=== PATIENT | male | born 1960 | race American Indian/Alaskan Native ===

== ENCOUNTER 2018-02-25 19:30 | Emergency (ER) | payer MEDICAID ==
--- NOTE | 2018-02-25 21:49 | Emergency Department Report ---
ED Head Trauma HPI - General Chief complaint: Head Injury Stated complaint: FALL Time Seen by Provider: 02/25/18 21:03 Source: EMS Mode of arrival: Stretcher Limitations: Altered Mental Status - History of Present Illness Initial comments: 57 year old male with a past medical history HIV/AIDS, hypertension, syphilitic neuropathy, autonomic hepatitis, cerebral infarction, toxoplasmosis, trach dependent and nonverbal presents to the hospital from half-way after head injury after fall out of chair. No other history of present illness available at this time and patient is unable to provide any additional history. - Related Data Allergies/Adverse reactions: Allergies Allergy/AdvReac Type Severity Reaction Status Date / Time No Known Allergies Allergy Unverified 02/25/18 20:40 ED Review of Systems ROS: Stated complaint: FALL Other details as noted in HPI Comment: All other systems reviewed and negative ED Past Medical Hx - Past Medical History Previous Medical History?: Yes Hx Hypertension: Yes Hx Liver Disease: Yes Hx HIV: Yes Additional medical history: 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,insomnia, autoimmune hepatitis, cerebral infarction, urine retention, toxoplasmosis - Surgical History Past Surgical History?: Yes Additional Surgical History: tracheostomy, gatrostomy - Social History Smoking Status: Unknown if ever smoked Substance Use Type: Alcohol, Cocaine ED Physical Exam - General Limitations: Altered Mental Status - Other Other exam information: General: at baseline mental status, cachectic Head exam: Atraumatic, normocephalic Eyes exam: Normal appearance, pupils equal reactive to light Neck exam: Normal inspection, full range of motion, no meningismus nontender. Tracheostomy Respiratory exam: Clear to auscultation bilateral, no wheezes, rales, crackles Cardiovascular: Normal rate and rhythm Abdomen: Soft, nondistended, and nontender, with normal bowel sounds, no rebound, or guarding Extremity: No pain with passive movement of extremities. No deformity Back: Normal Inspection, full range of motion, no tenderness Neurologic: Alert, nonverbal, does not follow commands. Moves all extremities Psychiatric: normal affect, normal mood Skin: No skin contusions. Mild abrasions to right knee ED Course Vital Signs 02/25/18 02/25/18 02/25/18 19:32 20:09 20:16 Temperature Pulse Rate 64 87 Respiratory 19 14 Rate Blood Pressure 122/70 122/70 O2 Sat by Pulse 99 Oximetry O2 Sat by Pulse Oximetry [ Assessment] 02/25/18 02/25/18 02/25/18 20:30 20:31 20:46 Temperature 97.8 F Pulse Rate 88 89 88 Respiratory 11 L 14 16 Rate Blood Pressure 122/70 110/68 O2 Sat by Pulse 100 97 Oximetry O2 Sat by Pulse Oximetry [ Assessment] 02/25/18 02/25/18 02/25/18 21:00 21:15 21:16 Temperature Pulse Rate 93 H 91 H Respiratory 17 12 Rate Blood Pressure 94/58 110/68 O2 Sat by Pulse 93 97 Oximetry O2 Sat by Pulse 100 Oximetry [ Assessment] 02/25/18 02/25/18 21:30 21:40 Temperature Pulse Rate 92 H Respiratory 12 16 Rate Blood Pressure 115/72 O2 Sat by Pulse 100 Oximetry O2 Sat by Pulse Oximetry [ Assessment] - Radiology Data Radiology results: report reviewed FINAL REPORT EXAM: CT HEAD/BRAIN WO CON HISTORY: fall head injury COMPARISON: None available. TECHNIQUE: Axial images obtained skull base through vertex. FINDINGS: No acute intracranial hemorrhage, midline shift or pathologic extra axial fluid collection. Age related volume loss with compensatory dilatation of the ventricular system and chronic small vessel ischemic disease. Chronic infarct at the medial inferior margin of the left cerebellum measuring 3.6 x 2.3 centimeters. There is associated laminar necrosis along the periphery of the area of infarct. Remote right frontal lobe infarct versus posttraumatic encephalomalacia. Area of volume loss involving the anterior right frontal lobe measures approximately 5 x 4 centimeters in axial dimension. Probable posttraumatic volume loss involving the anterior right temporal lobe measuring 3.7 x 2.0 centimeters in axial dimension. Remote lacunar infarcts bilateral thalami. Otherwise, schaefer-white differentiation preserved. Calvarium grossly intact. Mild mucosal thickening the paranasal sinuses. Remote fracture of the left orbital floor. Remote right nasal bone fracture. Small amount of fluid within the caudal mastoid air cells. IMPRESSION: No grossly acute intracranial abnormality. Remote infarct of the left cerebellum. Focal volume loss right frontal lobe and temporal lobe likely relating to sequelae of prior trauma. Small remote infarcts bilateral thalami. Remote right nasal bone fracture and remote fracture of the left orbital floor. FINAL REPORT EXAM: CT CERVICAL SPINE WO CON HISTORY: fall head injury COMPARISON : None available. TECHNIQUE: Axial images obtained through the cervical spine. Additional sagittal and coronal reformatted images were obtained. FINDINGS: Straightening of the normal lordotic curvature of the cervical spine. Cervical vertebral body heights are preserved. No acute fracture or traumatic subluxation. Odontoid process, articular pillars and occipital condyles are intact. Mild loss of disc height C4-C5 and C5-C6 levels. Mild canal stenosis at several levels due to broad-based disc bulges. Mild foraminal narrowing at several levels due to facet changes and uncovertebral hypertrophy. Partial visualization of tracheostomy tube and emphysematous changes at the lung apices. [place] at the right lung apex. IMPRESSION: No acute fracture or subluxation of the cervical spine. There is straightening of the normal lordotic curvature which may relate to patient positioning or muscle spasm. Mild degenerative changes. - Medical Decision Making Imaging studies reviewed. No acute findings. Chronic findings noted. Patient will be discharged back to half-way - Differential Diagnosis ICH, contusion, fracture Critical Care Time: No Critical care attestation.: If time is entered above; I have spent that time in minutes in the direct care of this critically ill patient, excluding procedure time. ED Disposition Clinical Impression: Fall, Minor head injury, Tracheostomy dependence, Encephalopathy chronic Disposition: DC-01 TO HOME OR SELFCARE Is pt being admited?: No Does the pt Need Aspirin: No Condition: Stable Instructions: Fall Prevention (ED), Minor Head Injury (ED) Referrals: primary care, [Other] - 3-5 Days Time of Disposition: 22:31
--- NOTE | 2018-02-25 22:20 | Cat Scan Report ---
FINAL REPORT EXAM: CT HEAD/BRAIN WO CON HISTORY: fall head injury COMPARISON: None available. TECHNIQUE: Axial images obtained skull base through vertex. FINDINGS: No acute intracranial hemorrhage, midline shift or pathologic extra axial fluid collection. Age related volume loss with compensatory dilatation of the ventricular system and chronic small vessel ischemic disease. Chronic infarct at the medial inferior margin of the left cerebellum measuring 3.6 x 2.3 centimeters. There is associated laminar necrosis along the periphery of the area of infarct. Remote right frontal lobe infarct versus posttraumatic encephalomalacia. Area of volume loss involving the anterior right frontal lobe measures approximately 5 x 4 centimeters in axial dimension. Probable posttraumatic volume loss involving the anterior right temporal lobe measuring 3.7 x 2.0 centimeters in axial dimension. Remote lacunar infarcts bilateral thalami. Otherwise, schaefer-white differentiation preserved. Calvarium grossly intact. Mild mucosal thickening the paranasal sinuses. Remote fracture of the left orbital floor. Remote right nasal bone fracture. Small amount of fluid within the caudal mastoid air cells. IMPRESSION: No grossly acute intracranial abnormality. Remote infarct of the left cerebellum. Focal volume loss right frontal lobe and temporal lobe likely relating to sequelae of prior trauma. Small remote infarcts bilateral thalami. Remote right nasal bone fracture and remote fracture of the left orbital floor.
--- NOTE | 2018-02-25 22:25 | Cat Scan Report ---
FINAL REPORT EXAM: CT CERVICAL SPINE WO CON HISTORY: fall head injury COMPARISON: None available. TECHNIQUE: Axial images obtained through the cervical spine. Additional sagittal and coronal reformatted images were obtained. FINDINGS: Straightening of the normal lordotic curvature of the cervical spine. Cervical vertebral body heights are preserved. No acute fracture or traumatic subluxation. Odontoid process, articular pillars and occipital condyles are intact. Mild loss of disc height C4-C5 and C5-C6 levels. Mild canal stenosis at several levels due to broad-based disc bulges. Mild foraminal narrowing at several levels due to facet changes and uncovertebral hypertrophy. Partial visualization of tracheostomy tube and emphysematous changes at the lung apices. [place] at the right lung apex. IMPRESSION: No acute fracture or subluxation of the cervical spine. There is straightening of the normal lordotic curvature which may relate to patient positioning or muscle spasm. Mild degenerative changes.
[2018-02-26 00:22] VITALS: BP 112/66
== END 2018-02-26 00:22 | disposition home or self-care (01) ==
LOC: ED 19:30
DX: S09.90XA Unspecified injury of head, initial encounter (principal); G93.40 Encephalopathy, unspecified; I10 Essential (primary) hypertension; F14.90 Cocaine use, unspecified, uncomplicated; W07.XXXA Fall from chair, initial encounter; Y93.89 Activity, other specified; Y92.89 Other specified places as the place of occurrence of the external cause; Y99.8 Other external cause status
CPT/HCPCS: 70450; 72125; 94760; 99284

== ENCOUNTER 2018-03-02 16:04 | Emergency (ER) | payer MEDICAID ==
--- NOTE | 2018-03-02 16:36 | Emergency Department Report ---
ED Head Trauma HPI - General Stated complaint: FALL/LACERATION Time Seen by Provider: 03/02/18 16:20 Source: patient Mode of arrival: Stretcher Limitations: Physical Limitation - History of Present Illness Initial comments: Patient is a 57-year-old male that presents to the ER with complaints of recent fall. Patient currently lives at a senior care and was brought by EMS to be evaluated. Patient states she was standing at [place] from a standing position and hit his head on the ground. Patient states was a short period of LOC. EMS confirmed that it was less than 30 seconds of LOC per staff. Patient sustained a laceration to his forehead. Patient denies headache. Patient denies dizziness. Patient denies blurred vision. Patient denies seizure. Patient denies chest pain shortness of breath. Patient denies any physical complaints except for the laceration. Patient has multiple medical problems and is currently living in a senior care. He states he has not walked for years but tried to get up to go to bathroom today and pt fell. pt has a trach and on home o2 liters. h/o hiv, toxoplasmosis, g - tube. htn, hld, MD Complaint: head injury, fall -: Sudden Location: frontal Loss of Consciousness: yes, second(s) Previous Trauma to this Area: No Place: home Radiation: other (his nh) Consistency: constant Provoking factors: none known Other Injuries: laceration Associated Symptoms: denies other symptoms. denies: confusion, amnesia, repetitive questioning, vision changes, nausea, vomiting, vertigo, syncope, numbness, weakness, tingling, neck pain - Related Data Allergies/Adverse reactions: Allergies Allergy/AdvReac Type Severity Reaction Status Date / Time No Known Allergies Allergy Unverified 02/25/18 20:40 ED Review of Systems ROS: Stated complaint: FALL/LACERATION Other details as noted in HPI Constitutional: denies: chills, fever Eyes: denies: eye pain, eye discharge, vision change ENT: denies: ear pain, throat pain Respiratory: denies: cough, shortness of breath, wheezing Cardiovascular: denies: chest pain, palpitations Endocrine: no symptoms reported Gastrointestinal: denies: abdominal pain, nausea, diarrhea Genitourinary: denies: urgency, dysuria Musculoskeletal: denies: back pain, joint swelling, arthralgia Skin: denies: rash, lesions Neurological: denies: headache, weakness, paresthesias Psychiatric: denies: anxiety, depression Hematological/Lymphatic: denies: easy bleeding, easy bruising ED Past Medical Hx - Past Medical History Previous Medical History?: Yes Hx Hypertension: Yes Hx Liver Disease: Yes Hx HIV: Yes Additional medical history: 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,insomnia, autoimmune hepatitis, cerebral infarction, urine retention, toxoplasmosis - Surgical History Past Surgical History?: Yes Additional Surgical History: tracheostomy, gatrostomy - Family History Family history: no significant - Social History Smoking Status: Unknown if ever smoked Substance Use Type: Alcohol, Cocaine ED Physical Exam - General Limitations: Physical Limitation General appearance: alert, in no apparent distress - Head Head exam: Present: normocephalic, other (laceratio of forehead. ) - Eye Eye exam: Present: normal appearance - ENT ENT exam: Present: mucous membranes moist - Neck Neck exam: Present: normal inspection - Respiratory Respiratory exam: Present: normal lung sounds bilaterally. Absent: respiratory distress - Cardiovascular Cardiovascular Exam: Present: regular rate, normal rhythm. Absent: systolic murmur, diastolic murmur, rubs, gallop - GI/Abdominal GI/Abdominal exam: Present: soft, normal bowel sounds - Rectal Rectal exam: Present: deferred - Extremities Exam Extremities exam: Present: normal inspection - Back Exam Back exam: Present: normal inspection - Neurological Exam Neurological exam: Present: alert, oriented X3 - Psychiatric Psychiatric exam: Present: normal affect, normal mood - Skin Skin exam: Present: warm, dry, normal color, other (3 cm forehead lac). Absent : rash ED Course Vital Signs 03/02/18 03/02/18 03/02/18 17:28 18:25 18:57 Temperature 98.0 F Pulse Rate 89 Respiratory 16 16 18 Rate Blood Pressure 118/65 O2 Sat by Pulse 99 100 Oximetry 03/02/18 03/02/18 03/02/18 19:01 19:15 19:30 Temperature Pulse Rate 92 H 96 H 96 H Respiratory 20 17 17 Rate Blood Pressure 122/66 118/66 118/83 O2 Sat by Pulse 95 98 96 Oximetry 03/02/18 03/02/18 19:45 20:00 Temperature Pulse Rate 97 H 99 H Respiratory 17 20 Rate Blood Pressure 101/53 123/64 O2 Sat by Pulse 95 97 Oximetry - Reevaluation(s) Reevaluation #1: Discussed all results with patient. CT negative. We'll suture patient's laceration. 03/02/18 18:13 - Laceration /Wound Repair Head Wound Location: head Wound Length (cm): 3 Wound's Depth, Shape: superficial Wound Explored: clean Betadine Prep?: Yes Anesthesia: 1% Lidocaine Wound Debrided: minimal Wound Repaired With: sutures Suture Size/Type: 4:0 Number of Sutures: 5 Layer Closure?: No Sterile Dressing Applied?: Yes Progress: She has a 3 cm lack irregular linear lack noted on the patient's forehead. Minimal bleeding during the procedure. Edges were well approximated. 5 sutures placed. bleeding controlled. - Lab Data Result diagrams: 03/02/18 16:50 03/02/18 16:50 Lab Results 03/02/18 03/02/18 Range/Units 16:50 16:50 WBC 5.9 (4.5-11.0) K/mm3 RBC 3.83 (3.65-5.03) M/mm3 Hgb 10.7 L (11.8-15.2) gm/dl Hct 33.7 L (35.5-45.6) % MCV 88 (84-94) fl MCH 28 (28-32) pg MCHC 32 (32-34) % RDW 16.7 H (13.2-15.2) % Plt Count 346 (140-440) K/mm3 Lymph % (Auto) 18.8 (13.4-35.0) % [place] % (Auto) 15.2 H (0.0-7.3) % Eos % (Auto) 2.3 (0.0-4.3) % Baso % (Auto) 0.6 (0.0-1.8) % Lymph # 1.1 L (1.2-5.4) K/mm3 [place] # 0.9 H (0.0-0.8) K/mm3 Eos # 0.1 (0.0-0.4) K/mm3 Baso # 0.0 (0.0-0.1) K/mm3 Seg Neutrophils % 63.1 (40.0-70.0) % Seg Neutrophils # 3.7 (1.8-7.7) K/mm3 Sodium 133 L (137-145) mmol/L Potassium 4.7 (3.6-5.0) mmol/L Chloride 95.5 L (98-107) mmol/L Carbon Dioxide 23 (22-30) mmol/L Anion Gap 19 mmol/L BUN 20 (9-20) mg/dL Creatinine 0.9 (0.8-1.5) mg/dL Estimated GFR > 60 ml/min BUN/Creatinine Ratio 22 % Glucose 97 (75-100) mg/dL Calcium 9.3 (8.4-10.2) mg/dL Total Bilirubin 0.30 (0.1-1.2) mg/dL AST 26 (5-40) units/L ALT 17 (7-56) units/L Alkaline Phosphatase 130 H (35-129) units/L Total Protein 9.8 H (6.3-8.2) g/dL Albumin 3.0 L (3.9-5) g/dL Albumin/Globulin Ratio 0.4 % - Radiology Data Radiology results: report reviewed FINAL REPORT EXAM: CT HEAD/BRAIN WO CON HISTORY: head injury TECHNIQUE: 2.5 millimeter axial images from the skullbase to the vertex. Comparison: Head CT dated February 25, 2018 FINDINGS: There is no evidence of an acute intracranial process, intracranial hemorrhage or mass effect. Again noted are the multiple areas of encephalomalacia involving the right frontal, temporal and parietal lobes, thalami bilaterally and left cerebellum. Ventricular size is concordant with the degree of volume loss. The visualized portions of the orbits, paranasal and mastoid sinuses are notable for deformity of the floor of the left orbit consistent with sequela of previous fracture. There is partial opacification of the mastoid sinuses bilaterally similar in appearance to the previous study. There is no evidence of acute fracture. There is the appearance of a skin defect in the frontal scalp soft tissues consistent with scalp injury. There is overlying dressing material. IMPRESSION: 1. No evidence of an acute intracranial process, intracranial hemorrhage or mass effect. 2. Soft tissue injury frontal scalp soft tissues. 3. No evidence of acute fracture. 4. Otherwise no significant change since previous study dated February 25, 2018. Transcribed By: ED Dictated By: KATHY JOHNSON MD Electronically Authenticated By: KATHY JOHNSON MD Signed Date/Time: 03/02/18 3207 - Medical Decision Making 57-year-old male that presents emergency room with a head injury and loss of consciousness for less than 30-45 seconds at patient's senior care. Fall was not witnessed but LOC was witnessed by staff. Patient had a head CT done that was negative. Patient also sustained a laceration to his forehead which was closed with 5 superficial sutures. See procedure note. Patient is stable for discharge. Patient given discharge instructions. Patient given 70 ER instructions. Patient voiced understanding of all instructions. - Differential Diagnosis head injury. thakkar. concussion. loc. lac. Critical care attestation.: If time is entered above; I have spent that time in minutes in the direct care of this critically ill patient, excluding procedure time. ED Disposition Clinical Impression: LOC (loss of consciousness) Fall Qualifiers: Encounter type: initial encounter Qualified Code(s): W19.XXXA - Unspecified fall, initial encounter Minor head injury Qualifiers: Encounter type: initial encounter Qualified Code(s): S09.90XA - Unspecified injury of head, initial encounter Concussion Qualifiers: Encounter type: initial encounter Loss of consciousness presence/duration: with LOC of 30 min or less Qualified Code(s): S06.0X1A - Concussion with loss of consciousness of 30 minutes or less, initial encounter Laceration of forehead Qualifiers: Encounter type: initial encounter Qualified Code(s): S01.81XA - Laceration without foreign body of other part of head, initial encounter Disposition: DC-01 TO HOME OR SELFCARE Is pt being admited?: No Does the pt Need Aspirin: No Condition: Stable Instructions: Suture Care (ED), Laceration (ED) Additional Instructions: She is to return to ER if condition worsens. Patient to return to see primary care in 3-5 days. Patient to see his primary care again in 7 -10 days to have his sutures removed. Patient to rest. Patient to take Tylenol when necessary for pain. Suture care discussed with patient. Referrals: PRIMARY CARE, [Primary Care Provider] - 3-5 Days Time of Disposition: 19:05
[2018-03-02 17:24] LABS: Basophils % (Auto) 0.6 % (0.0-1.8); Eosinophils # (Auto) 0.1 K/mm3 (0.0-0.4); Eosinophils % (Auto) 2.3 % (0.0-4.3); Hematocrit 33.7 % (35.5-45.6); Hemoglobin 10.7 gm/dl (11.8-15.2); Lymphocytes # (Auto) 1.1 K/mm3 (1.2-5.4); Lymphocytes % (Auto) 18.8 % (13.4-35.0); Mean Corpuscular HGB Conc 32 % (32-34); Mean Corpuscular Hemoglobin 28 pg (28-32); Mean Corpuscular Volume 88 fl (84-94); Monocytes # (Auto) 0.9 K/mm3 (0.0-0.8); Monocytes % (Auto) 15.2 % (0.0-7.3); Platelet Count 346 K/mm3 (140-440); Red Blood Count 3.83 M/mm3 (3.65-5.03); Red Cell Distribution Width 16.7 % (13.2-15.2)
--- NOTE | 2018-03-02 17:33 | Cat Scan Report ---
FINAL REPORT EXAM: CT HEAD/BRAIN WO CON HISTORY: head injury TECHNIQUE: 2.5 millimeter axial images from the skullbase to the vertex. Comparison: Head CT dated February 25, 2018 FINDINGS: There is no evidence of an acute intracranial process, intracranial hemorrhage or mass effect. Again noted are the multiple areas of encephalomalacia involving the right frontal, temporal and parietal lobes, thalami bilaterally and left cerebellum. Ventricular size is concordant with the degree of volume loss. The visualized portions of the orbits, paranasal and mastoid sinuses are notable for deformity of the floor of the left orbit consistent with sequela of previous fracture. There is partial opacification of the mastoid sinuses bilaterally similar in appearance to the previous study. There is no evidence of acute fracture. There is the appearance of a skin defect in the frontal scalp soft tissues consistent with scalp injury. There is overlying dressing material. IMPRESSION: 1. No evidence of an acute intracranial process, intracranial hemorrhage or mass effect. 2. Soft tissue injury frontal scalp soft tissues. 3. No evidence of acute fracture. 4. Otherwise no significant change since previous study dated February 25, 2018.
[2018-03-02 17:43] LABS: Alanine Aminotransferase 17 units/L (7-56); BUN/Creatinine Ratio 22; Blood Urea Nitrogen 20 mg/dL (9-20); Calcium 9.3 mg/dL (8.4-10.2); Hemolysis Index 4
[2018-03-02] MEDS ORDERED: XYLOCAINE 1% 20 mL INFILTRATI ONE (18:16)
[2018-03-02 20:12] VITALS: BP 123/64
== END 2018-03-02 20:10 | disposition home or self-care (01) ==
LOC: ED 16:04
DX: S06.0X1A Concussion with loss of consciousness of 30 minutes or less, initial encounter (principal); S01.81XA Laceration without foreign body of other part of head, initial encounter; I10 Essential (primary) hypertension; W18.30XA Fall on same level, unspecified, initial encounter; Y93.89 Activity, other specified; Y92.89 Other specified places as the place of occurrence of the external cause; Y99.8 Other external cause status
CPT/HCPCS: 36415; 70450; 80053; 85025

== ENCOUNTER 2018-08-22 14:54 | Emergency (ER) | payer MEDICAID ==
[2018-08-22] MEDS ORDERED: NACL 0.9% IR ONE (15:26)
[2018-08-22] MEDS ORDERED: XYLOCAINE 2%/EPI 1:100,000 INFILTRATI ONE (15:26)
[2018-08-22] MEDS ORDERED: BOOSTRIX IM ONE (15:27)
--- NOTE | 2018-08-22 15:28 | Emergency Department Report ---
ED General Adult HPI - General Chief complaint: Fall Stated complaint: GROUND LEVEL FALL Time Seen by Provider: 08/22/18 15:18 Source: patient, EMS (ems notes not available at time of chart dictation), RN notes reviewed, old records reviewed Mode of arrival: Stretcher Limitations: Other (patient demented, patient is a poor historian) - History of Present Illness Initial comments: This is a 58-year-old gentleman who is known to this provider previously. The patient has an extensive cognitive past medical history. The patient currently resides in a care home. Patient has a history of feeding tube, is full code, HIV, dementia, history of tracheostomy, sent to the emergency room for evaluation of mechanical witnessed fall. As per verbal report from EMS to nursing staff, patient was reportedly in his usual state of health, when he accidentally fell out of his wheelchair onto his left forehead. The patient is poorly verbal, follows commands, but is not able to answer open-ended questions. He indicates that he is not having any pain in his head, neck, chest, abdomen. The patient is moving 4 extremities spontaneously. -: Sudden Location: head Quality: other (patient is not able to describe) Consistency: other (patient is not able to describe) Improves with: other (patient is not able to describe) Worsens with: other (patient not able to describe) - Related Data Home Medications Medication Instructions Recorded Confirmed Last Taken Acetylcysteine 20% Oral [Mucomyst 3 ml INTRATRACH Q6H 03/28/18 03/28/18 Unknown Oral] Aspirin [Aspirin TAB] 325 mg FEEDTUBE DAILY 03/28/18 03/28/18 Unknown Atorvastatin Calcium [Lipitor] 20 mg FEEDTUBE HS 03/28/18 03/28/18 Unknown Bisacodyl [Bisac-Evac] 10 mg RC DAILY PRN 03/28/18 03/28/18 Unknown Cholecalciferol (Vitamin D3) 2,000 unit FEEDTUBE QAM 03/28/18 03/28/18 Unknown [Vitamin D3] Darunavir Ethanolate [Prezista] 8 ml FEEDTUBE QAM 03/28/18 03/28/18 Unknown Docusate Sodium [Move It Along] 100 mg FEEDTUBE Q12H PRN 03/28/18 03/28/18 Unknown Doxazosin Mesylate [Cardura] 1 mg FEEDTUBE HS 03/28/18 03/28/18 Unknown Ergocalciferol [Vitamin D2] 1 cap FEEDTUBE QWEEK 03/28/18 03/28/18 Unknown FLUoxetine HCL [PROzac] 40 mg FEEDTUBE QAM 03/28/18 03/28/18 Unknown Gabapentin [Neurontin] 300 mg FEEDTUBE HS 03/28/18 03/28/18 Unknown Haloperidol Decanoate [Haldol 50 mg IM Q4W 03/28/18 03/28/18 Unknown Decanoate] Haloperidol Lactate [Haldol] 0.4 ml IM Q8H PRN 03/28/18 03/28/18 Unknown Ipratropium/Albuterol Sulfate 1 ampul IH Q4HR 03/28/18 03/28/18 Unknown [DUONEB *Not for PRN Use*] LORazepam [Ativan] 1 mg FEEDTUBE BID 03/28/18 03/28/18 Unknown Leucovorin (Nf) 25 mg PO QAM 03/28/18 03/28/18 Unknown Midodrine [Proamatine] 15 mg FEEDTUBE Q8H 03/28/18 03/28/18 Unknown Polyethylene Glycol 3350 17 gm FEEDTUBE DAILY PRN 03/28/18 03/28/18 Unknown [Smoothlax] Pyrimethamine [Daraprim] 25 mg FEEDTUBE QAM 03/28/18 03/28/18 Unknown Quetiapine Fumarate [Seroquel] 100 mg FEEDTUBE Q8H 03/28/18 03/28/18 Unknown Ritonavir [Norvir] 1.3 ml FEEDTUBE DAILY 03/28/18 03/28/18 Unknown Scopolamine [Transderm-Scop] 1 each TD Q72H 03/28/18 03/28/18 Unknown Sennosides [Senna Laxative] 17.2 mg FEEDTUBE HS 03/28/18 03/28/18 Unknown Sodium Chloride 2 tab PO Q8H 03/28/18 03/28/18 Unknown lamiVUDine [Lamivudine] 30 ml FEEDTUBE QAM 03/28/18 03/28/18 Unknown raNITIdine HCl [Zantac 15mg/ml 10 ml FEEDTUBE Q12H 03/28/18 03/28/18 Unknown Oral Liq] sulfADIAZINE 1,000 mg FEEDTUBE Q12H 03/28/18 03/28/18 Unknown Previous Rx's Medication Instructions Recorded Last Taken Type Sulfamethoxazole/Trimethoprim 285 mg PO BID 14 Days oral.liqd 03/31/18 Unknown Rx [Bactrim 200-40 mg/5 ml Oral Liq] traMADol [Ultram 50 MG tab] 50 mg FEEDTUBE TID #10 tablet 03/31/18 Unknown Rx Bacitracin Zinc Oint [Antibiotic 1 applicatio TP BID #1 tube 08/22/18 Unknown Rx Oint] Allergies Allergy/AdvReac Type Severity Reaction Status Date / Time No Known Allergies Allergy Verified 03/28/18 06:42 ED Review of Systems ROS: Stated complaint: GROUND LEVEL FALL Other details as noted in HPI Comment: Unobtainable due to pts medical conditions Cardiovascular: denies: chest pain Gastrointestinal: denies: abdominal pain Musculoskeletal: denies: back pain Neurological: denies: headache, weakness ED Past Medical Hx - Past Medical History Hx Hypertension: Yes Hx Diabetes: Yes Hx Liver Disease: Yes Hx HIV: Yes Additional medical history: 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,insomnia, autoimmune hepatitis, cerebral infarction, urine retention, toxoplasmosis - Surgical History Additional Surgical History: tracheostomy, gatrostomy - Social History Smoking Status: Unknown if ever smoked - Medications Home Medications: Home Medications Medication Instructions Recorded Confirmed Last Taken Type Acetylcysteine 20% Oral [Mucomyst 3 ml INTRATRACH Q6H 03/28/18 03/28/18 Unknown History Oral] Aspirin [Aspirin TAB] 325 mg FEEDTUBE DAILY 03/28/18 03/28/18 Unknown History Atorvastatin Calcium [Lipitor] 20 mg FEEDTUBE HS 03/28/18 03/28/18 Unknown History Bisacodyl [Bisac-Evac] 10 mg RC DAILY PRN 03/28/18 03/28/18 Unknown History Cholecalciferol (Vitamin D3) 2,000 unit FEEDTUBE QAM 03/28/18 03/28/18 Unknown History [Vitamin D3] Darunavir Ethanolate [Prezista] 8 ml FEEDTUBE QAM 03/28/18 03/28/18 Unknown History Docusate Sodium [Move It Along] 100 mg FEEDTUBE Q12H PRN 03/28/18 03/28/18 Unknown History Doxazosin Mesylate [Cardura] 1 mg FEEDTUBE HS 03/28/18 03/28/18 Unknown History Ergocalciferol [Vitamin D2] 1 cap FEEDTUBE QWEEK 03/28/18 03/28/18 Unknown History FLUoxetine HCL [PROzac] 40 mg FEEDTUBE QAM 03/28/18 03/28/18 Unknown History Gabapentin [Neurontin] 300 mg FEEDTUBE HS 03/28/18 03/28/18 Unknown History Haloperidol Decanoate [Haldol 50 mg IM Q4W 03/28/18 03/28/18 Unknown History Decanoate] Haloperidol Lactate [Haldol] 0.4 ml IM Q8H PRN 03/28/18 03/28/18 Unknown History Ipratropium/Albuterol Sulfate 1 ampul IH Q4HR 03/28/18 03/28/18 Unknown History [DUONEB *Not for PRN Use*] LORazepam [Ativan] 1 mg FEEDTUBE BID 03/28/18 03/28/18 Unknown History Leucovorin (Nf) 25 mg PO QAM 03/28/18 03/28/18 Unknown History Midodrine [Proamatine] 15 mg FEEDTUBE Q8H 03/28/18 03/28/18 Unknown History Polyethylene Glycol 3350 17 gm FEEDTUBE DAILY PRN 03/28/18 03/28/18 Unknown History [Smoothlax] Pyrimethamine [Daraprim] 25 mg FEEDTUBE QAM 03/28/18 03/28/18 Unknown History Quetiapine Fumarate [Seroquel] 100 mg FEEDTUBE Q8H 03/28/18 03/28/18 Unknown History Ritonavir [Norvir] 1.3 ml FEEDTUBE DAILY 03/28/18 03/28/18 Unknown History Scopolamine [Transderm-Scop] 1 each TD Q72H 03/28/18 03/28/18 Unknown History Sennosides [Senna Laxative] 17.2 mg FEEDTUBE HS 03/28/18 03/28/18 Unknown History Sodium Chloride 2 tab PO Q8H 03/28/18 03/28/18 Unknown History lamiVUDine [Lamivudine] 30 ml FEEDTUBE QAM 03/28/18 03/28/18 Unknown History raNITIdine HCl [Zantac 15mg/ml 10 ml FEEDTUBE Q12H 03/28/18 03/28/18 Unknown History Oral Liq] sulfADIAZINE 1,000 mg FEEDTUBE Q12H 03/28/18 03/28/18 Unknown History Sulfamethoxazole/Trimethoprim 285 mg PO BID 14 Days oral.liqd 03/31/18 Unknown Rx [Bactrim 200-40 mg/5 ml Oral Liq] traMADol [Ultram 50 MG tab] 50 mg FEEDTUBE TID #10 tablet 03/31/18 Unknown Rx Bacitracin Zinc Oint [Antibiotic 1 applicatio TP BID #1 tube 08/22/18 Unknown Rx Oint] ED Physical Exam - General Limitations: Other (demented, poor historian) General appearance: alert, in no apparent distress - Head Head exam: Present: normocephalic, other (on the right temporal forehead, there is a linear 3 cm laceration). Absent: atraumatic - Eye Eye exam: Present: normal appearance, EOMI. Absent: nystagmus - ENT ENT exam: Present: normal exam, mucous membranes moist - Neck Neck exam: Present: full ROM. Absent: normal inspection (there is no redness, pus or streaking. Chronic tracheostomy scar is reviewed and appreciated), tenderness, meningismus - Respiratory Respiratory exam: Present: normal lung sounds bilaterally. Absent: respiratory distress - Cardiovascular Cardiovascular Exam: Present: regular rate, normal rhythm, normal heart sounds. Absent: bradycardia, tachycardia, irregular rhythm, systolic murmur, diastolic murmur, rubs, gallop - GI/Abdominal GI/Abdominal exam: Present: soft. Absent: distended, tenderness, guarding, rebound, rigid - Rectal Rectal exam: Present: deferred - Extremities Exam Extremities exam: Present: normal inspection, full ROM, other (2+ pulses noted in the bilateral upper, lower extremities. Compartments soft. No long bony tenderness. The pelvis is stable.). Absent: pedal edema, joint swelling, calf tenderness - Back Exam Back exam: Present: normal inspection, full ROM. Absent: tenderness, CVA tenderness (R), paraspinal tenderness, vertebral tenderness - Neurological Exam Neurological exam: Present: alert, other (patient moving 4 extremities. The extraocular movements are intact bilaterally. Indicates sensation is intact to light touch.) - Psychiatric Psychiatric exam: Present: anxious - Skin Skin exam: Present: warm ED Course Vital Signs 08/22/18 08/22/18 14:58 16:40 Temperature 98.6 F Pulse Rate 97 H Respiratory 18 Rate Blood Pressure 120/76 125/73 [Right] - Reevaluation(s) Reevaluation #1: 08/22/18 17:16 CT scan of the cervical spine is negative for acute disease. Reevaluation #2: 08/22/18 17:42 CT scan of the brain is negative for acute disease. Incidental bony abnormalities noted in the mandible. On external and internal physical exam, do not suspect acute abscess or infectious etiology. Patient has no pain or tenderness over these areas. He can follow up with an outpatient dentist or oral surgeon. - Laceration /Wound Repair Right Lateral Face Wound Location: head, upper extremity (3) Wound's Depth, Shape: into muscle, irregular, contused tissue Wound Explored: clean Irrigated w/ Saline (ccs): 500 Betadine Prep?: Yes Anesthesia: Lidocaine w/ Epi Volume Anesthetic (ccs): 5 Wound Debrided: minimal Suture Size/Type: 5:0 Number of Sutures: 4 Layer Closure?: No Sterile Dressing Applied?: Yes ED Medical Decision Making - Lab Data Vital Signs 08/22/18 08/22/18 14:58 16:40 Temperature 98.6 F Pulse Rate 97 H Respiratory 18 Rate Blood Pressure 120/76 125/73 [Right] - Radiology Data Radiology results: pending, report reviewed, image reviewed - Medical Decision Making Differential diagnosis, including but not limited to: Intracranial injury, cervical spine injury, forehead laceration Assessment and plan: 58-year-old gentleman status post reported witnessed mechanical fall, with isolated right-sided lateral orbit laceration. Patient moving 4 extremities, is cooperative, and does not appear to be in any acute distress. Noncontrast CT scan of the brain, cervical spine negative for acute disease. Laceration was repaired with appropriate cosmesis. The patient tolerated this procedure well. The patient has been observed in the emergency room for a few hours without clin ical decompensation. He does not appear to have an emergent medical condition at this time. He is medically suitable to be discharged back to his care home. Critical care attestation.: If time is entered above; I have spent that time in minutes in the direct care of this critically ill patient, excluding procedure time. ED Disposition Clinical Impression: Facial laceration, Fall Disposition: [id number] TO HOME OR SELFCARE Is pt being admited?: No Does the pt Need Aspirin: No Condition: Stable Instructions: Suture Care (ED), Laceration (ED) Additional Instructions: Wash laceration with gentle soap and water every 12-24 hours. Apply bacitracin to laceration site once every 12-24 hours. Sutures should be removed in 5 days. Please follow-up with the primary care doctor, urgent care center, or return to the emergency room to have the sutures removed. Continue outpatient medications, and return to the emergency room right away with Berry, worsened or different symptoms. CT scan of the brain demonstrated incidental nonemergent findings, including bony irregularity/abnormality of the left jaw, mandible. Please have a primary care doctor or dentist contact the medical records department to obtain the CT scan results, and patient should follow-up with a dentist or oral surgeon within the next month. Prescriptions: Bacitracin Zinc Oint [Antibiotic Oint] 1 applicatio TP BID #1 tube Referrals: BREDNA SHEA MD [Staff Physician] - 3-5 Days
[2018-08-22] MEDS ORDERED: POLYSPORIN TP ONE (16:35)
[2018-08-22] MEDS ORDERED: TRIPLE ANTIBIOTIC TP ONE ×2 (16:41)
--- NOTE | 2018-08-22 17:10 | Cat Scan Report ---
PROCEDURE: CT CERVICAL SPINE WO CON TECHNIQUE: Standard CT cervical spine obtained at 2.5 mm axial increments. Coronal and sagittal rec onstruction was also performed. CT DOSE LENGTH PRODUCT: 469.42 mGycm HISTORY: fall with neck pain COMPARISON: CT C-spine 03/28/2018 FINDINGS: The vertebral bodies are intact. There is no evidence for acute fracture. There is no evidence for pa ravertebral soft tissue swelling. Alignment is maintained. Emphysematous changes in the apices of both lungs is seen. IMPRESSION: Negative CT of the cervical spine. This document is electronically signed by Tracey Wesley MD., August 22 2018 05:08:11 PM ET
--- NOTE | 2018-08-22 17:38 | Cat Scan Report ---
PROCEDURE: CT HEAD/BRAIN WO CON TECHNIQUE: Axial helical imaging from the skull base to the vertex. HISTORY: fall COMPARISONS: Head CT dated March 28, 2018 FINDINGS: There are chronic infarcts in the right frontal lobe, right temporal lobe, thalami bilaterally, right occipital lobe and left cerebellum similar in appearance to the previous study. There is no evidence of an acute intracranial process, intracranial hemorrhage or mass effect. Ventricular size is concordant with the degree of atrophy. The visualized portions of the orbits, paranasal and mastoid sinuses are unremarkable. There is no evidence of fracture. There is increased density at the visualized portion of the body of the mandible on the left suggesti ve of osteitis. This is incompletely imaged. IMPRESSION: 1. No evidence of an acute intracranial process, intracranial hemorrhage or mass effect. 2. Chronic infarcts as described above. 3. No evidence of fracture. 4. Appearance of osteitis visualized portions of the left mandible. This is incompletely imaged. If further imaging is required, CT of the face may be helpful. This document is electronically signed by Bambi Sandoval MD., August 22 2018 05:36:42 PM ET
[2018-08-22 19:35] VITALS: BP 136/60
== END 2018-08-22 19:15 | disposition home or self-care (01) ==
LOC: ED 14:54
DX: S01.81XA Laceration without foreign body of other part of head, initial encounter (principal); I10 Essential (primary) hypertension; E11.9 Type 2 diabetes mellitus without complications; Z93.1 Gastrostomy status; Z93.0 Tracheostomy status; Z86.73 Personal history of transient ischemic attack (TIA), and cerebral infarction without residual deficits; W05.0XXA Fall from non-moving wheelchair, initial encounter; Y93.89 Activity, other specified; Y92.89 Other specified places as the place of occurrence of the external cause; Y99.8 Other external cause status
CPT/HCPCS: 70450; 72125; 90471; 90715; A6250

== ENCOUNTER 2018-08-27 10:15 | Inpatient (IN) | payer MEDICAID ==
[2018-08-27] MEDS ORDERED: NACL 0.9% 1000 ML IV ONE (11:01)
[2018-08-27] MEDS ORDERED: VANCOMYCIN 1,250 MG in NACL 0.9% 500 ML 500 ML IV ONE (11:57)
[2018-08-27] MEDS ORDERED: ZOSYN/NS 4.5GM/100ML 4.5 GM/100 ML VIAL IV ONE (11:57)
[2018-08-27] MEDS ORDERED: DUONEB *Not for PRN Use IH ONE (12:10)
--- NOTE | 2018-08-27 12:17 | Emergency Department Report ---
ED Shortness of Breath HPI - General Chief Complaint: Altered Mental Status Stated Complaint: AMS/LOW O2 STATS/HIGH HEART BEAT Time Seen by Provider: 08/27/18 10:37 Source: EMS, old records reviewed Mode of arrival: Stretcher Limitations: Altered Mental Status, Physical Limitation - History of Present Illness Initial Comments: 58-year-old male with a past medical history HIVAIDS, toxoplasmosis, CVA residual weakness, history of respiratory failure status post trach reversal, headache, syphilitic encephalitis, autoimmune hepatitis, traumatic brain injury, cocaine and alcohol abuse visits to the hospital from [facility] with tachycardia and hypoxia Which was noted by [facility] staff this a.m. Patient will open his eyes voice and follows commands although sleeping and not really speaking but will nod in response to some questions. I am unsure of his baseline mentation. 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 CD4 count 740 on 03/2018 - Related Data Home Medications Medication Instructions Recorded Confirmed Last Taken Acetylcysteine 20% Oral [Mucomyst 3 ml INTRATRACH Q6H 03/28/18 03/28/18 Unknown Oral] Aspirin [Aspirin TAB] 325 mg FEEDTUBE DAILY 03/28/18 03/28/18 Unknown Atorvastatin Calcium [Lipitor] 20 mg FEEDTUBE HS 03/28/18 03/28/18 Unknown Bisacodyl [Bisac-Evac] 10 mg RC DAILY PRN 03/28/18 03/28/18 Unknown Cholecalciferol (Vitamin D3) 2,000 unit FEEDTUBE QAM 03/28/18 03/28/18 Unknown [Vitamin D3] Darunavir Ethanolate [Prezista] 8 ml FEEDTUBE QAM 03/28/18 03/28/18 Unknown Docusate Sodium [Move It Along] 100 mg FEEDTUBE Q12H PRN 03/28/18 03/28/18 Unknown Doxazosin Mesylate [Cardura] 1 mg FEEDTUBE HS 03/28/18 03/28/18 Unknown Ergocalciferol [Vitamin D2] 1 cap FEEDTUBE QWEEK 03/28/18 03/28/18 Unknown FLUoxetine HCL [PROzac] 40 mg FEEDTUBE QAM 03/28/18 03/28/18 Unknown Gabapentin [Neurontin] 300 mg FEEDTUBE HS 03/28/18 03/28/18 Unknown Haloperidol Decanoate [Haldol 50 mg IM Q4W 03/28/18 03/28/18 Unknown Decanoate] Haloperidol Lactate [Haldol] 0.4 ml IM Q8H PRN 03/28/18 03/28/18 Unknown Ipratropium/Albuterol Sulfate 1 ampul IH Q4HR 03/28/18 03/28/18 Unknown [DUONEB *Not for PRN Use*] LORazepam [Ativan] 1 mg FEEDTUBE BID 03/28/18 03/28/18 Unknown Leucovorin (Nf) 25 mg PO QAM 03/28/18 03/28/18 Unknown Midodrine [Proamatine] 15 mg FEEDTUBE Q8H 03/28/18 03/28/18 Unknown Polyethylene Glycol 3350 17 gm FEEDTUBE DAILY PRN 03/28/18 03/28/18 Unknown [Smoothlax] Pyrimethamine [Daraprim] 25 mg FEEDTUBE QAM 03/28/18 03/28/18 Unknown Quetiapine Fumarate [Seroquel] 100 mg FEEDTUBE Q8H 03/28/18 03/28/18 Unknown Ritonavir [Norvir] 1.3 ml FEEDTUBE DAILY 03/28/18 03/28/18 Unknown Scopolamine [Transderm-Scop] 1 each TD Q72H 03/28/18 03/28/18 Unknown Sennosides [Senna Laxative] 17.2 mg FEEDTUBE HS 03/28/18 03/28/18 Unknown Sodium Chloride 2 tab PO Q8H 03/28/18 03/28/18 Unknown lamiVUDine [Lamivudine] 30 ml FEEDTUBE QAM 03/28/18 03/28/18 Unknown raNITIdine HCl [Zantac 15mg/ml 10 ml FEEDTUBE Q12H 03/28/18 03/28/18 Unknown Oral Liq] sulfADIAZINE 1,000 mg FEEDTUBE Q12H 03/28/18 03/28/18 Unknown Previous Rx's Medication Instructions Recorded Last Taken Type Sulfamethoxazole/Trimethoprim 285 mg PO BID 14 Days oral.liqd 03/31/18 Unknown Rx [Bactrim 200-40 mg/5 ml Oral Liq] traMADol [Ultram 50 MG tab] 50 mg FEEDTUBE TID #10 tablet 03/31/18 Unknown Rx Bacitracin Zinc Oint [Antibiotic 1 applicatio TP BID #1 tube 08/22/18 Unknown Rx Oint] Allergies Allergy/AdvReac Type Severity Reaction Status Date / Time No Known Allergies Allergy Verified 08/27/18 10:38 ED Review of Systems ROS: Stated complaint: AMS/LOW O2 STATS/HIGH HEART BEAT Other details as noted in HPI Comment: All other systems reviewed and negative ED Past Medical Hx - Past Medical History Hx Hypertension: Yes Hx Diabetes: Yes Hx Liver Disease: Yes Hx HIV: Yes Additional medical history: 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,insomnia, autoimmune hepatitis, cerebral infarction, urine retention, toxoplasmosis - Surgical History Additional Surgical History: tracheostomy, gatrostomy - Social History Smoking Status: Never Smoker Substance Use Type: None - Medications Home Medications: Home Medications Medication Instructions Recorded Confirmed Last Taken Type Acetylcysteine 20% Oral [Mucomyst 3 ml INTRATRACH Q6H 03/28/18 03/28/18 Unknown History Oral] Aspirin [Aspirin TAB] 325 mg FEEDTUBE DAILY 03/28/18 03/28/18 Unknown History Atorvastatin Calcium [Lipitor] 20 mg FEEDTUBE HS 03/28/18 03/28/18 Unknown History Bisacodyl [Bisac-Evac] 10 mg RC DAILY PRN 03/28/18 03/28/18 Unknown History Cholecalciferol (Vitamin D3) 2,000 unit FEEDTUBE QAM 03/28/18 03/28/18 Unknown History [Vitamin D3] Darunavir Ethanolate [Prezista] 8 ml FEEDTUBE QAM 03/28/18 03/28/18 Unknown History Docusate Sodium [Move It Along] 100 mg FEEDTUBE Q12H PRN 03/28/18 03/28/18 Unknown History Doxazosin Mesylate [Cardura] 1 mg FEEDTUBE HS 03/28/18 03/28/18 Unknown History Ergocalciferol [Vitamin D2] 1 cap FEEDTUBE QWEEK 03/28/18 03/28/18 Unknown History FLUoxetine HCL [PROzac] 40 mg FEEDTUBE QAM 03/28/18 03/28/18 Unknown History Gabapentin [Neurontin] 300 mg FEEDTUBE HS 03/28/18 03/28/18 Unknown History Haloperidol Decanoate [Haldol 50 mg IM Q4W 03/28/18 03/28/18 Unknown History Decanoate] Haloperidol Lactate [Haldol] 0.4 ml IM Q8H PRN 03/28/18 03/28/18 Unknown History Ipratropium/Albuterol Sulfate 1 ampul IH Q4HR 03/28/18 03/28/18 Unknown History [DUONEB *Not for PRN Use*] LORazepam [Ativan] 1 mg FEEDTUBE BID 03/28/18 03/28/18 Unknown History Leucovorin (Nf) 25 mg PO QAM 03/28/18 03/28/18 Unknown History Midodrine [Proamatine] 15 mg FEEDTUBE Q8H 03/28/18 03/28/18 Unknown History Polyethylene Glycol 3350 17 gm FEEDTUBE DAILY PRN 03/28/18 03/28/18 Unknown History [Smoothlax] Pyrimethamine [Daraprim] 25 mg FEEDTUBE QAM 03/28/18 03/28/18 Unknown History Quetiapine Fumarate [Seroquel] 100 mg FEEDTUBE Q8H 03/28/18 03/28/18 Unknown History Ritonavir [Norvir] 1.3 ml FEEDTUBE DAILY 03/28/18 03/28/18 Unknown History Scopolamine [Transderm-Scop] 1 each TD Q72H 03/28/18 03/28/18 Unknown History Sennosides [Senna Laxative] 17.2 mg FEEDTUBE HS 03/28/18 03/28/18 Unknown History Sodium Chloride 2 tab PO Q8H 03/28/18 03/28/18 Unknown History lamiVUDine [Lamivudine] 30 ml FEEDTUBE QAM 03/28/18 03/28/18 Unknown History raNITIdine HCl [Zantac 15mg/ml 10 ml FEEDTUBE Q12H 03/28/18 03/28/18 Unknown History Oral Liq] sulfADIAZINE 1,000 mg FEEDTUBE Q12H 03/28/18 03/28/18 Unknown History Sulfamethoxazole/Trimethoprim 285 mg PO BID 14 Days oral.liqd 03/31/18 Unknown Rx [Bactrim 200-40 mg/5 ml Oral Liq] traMADol [Ultram 50 MG tab] 50 mg FEEDTUBE TID #10 tablet 03/31/18 Unknown Rx Bacitracin Zinc Oint [Antibiotic 1 applicatio TP BID #1 tube 08/22/18 Unknown Rx Oint] ED Physical Exam - General Limitations: Altered Mental Status, Physical Limitation - Other Other exam information: General: Cachectic Head exam: stitches present lateral to the right orbit Eyes exam: Normal appearance ENT: Dry mucous membranes with yellow/white plaque on tongue Neck exam: Tracheostomy scar noted Respiratory exam: Bilateral rhonchi, no accessory muscle use Cardiovascular: Tachycardic regular rhythm Abdomen: Soft, nondistended, and nontender, with normal bowel sounds, no rebound, or guarding. Positive PEG tube Extremity: Moves all extremities spontaneously, no deformity, no edema or leg asymmetry Neurologic: Lethargic but open eyes to voice and follows some commands. Equal hand personal financial planner and foot dorsiflexion. Sensation grossly intact Skin: Warm, dry ED Course Vital Signs 08/27/18 08/27/18 08/27/18 10:25 10:30 10:39 Temperature 99.5 F Pulse Rate 113 H 114 H Pulse Rate [ Anterior Bilateral Throughout] Respiratory 16 14 Rate Respiratory Rate [Anterior Bilateral Throughout] Blood Pressure 98/61 98/61 O2 Sat by Pulse 96 81 L 91 Oximetry 08/27/18 08/27/18 08/27/18 10:45 11:00 11:03 Temperature Pulse Rate 111 H 116 H Pulse Rate [ Anterior Bilateral Throughout] Respiratory 16 11 L 14 Rate Respiratory Rate [Anterior Bilateral Throughout] Blood Pressure 110/63 105/65 O2 Sat by Pulse 91 100 Oximetry 08/27/18 08/27/18 08/27/18 11:15 11:30 11:45 Temperature Pulse Rate 115 H 115 H 108 H Pulse Rate [ Anterior Bilateral Throughout] Respiratory 10 L 12 11 L Rate Respiratory Rate [Anterior Bilateral Throughout] Blood Pressure 108/63 88/57 108/63 O2 Sat by Pulse 99 98 100 Oximetry 08/27/18 08/27/18 08/27/18 12:00 12:15 12:30 Temperature Pulse Rate 107 H 112 H 111 H Pulse Rate [ Anterior Bilateral Throughout] Respiratory 14 13 13 Rate Respiratory Rate [Anterior Bilateral Throughout] Blood Pressure 113/64 126/71 126/71 O2 Sat by Pulse 99 91 Oximetry 08/27/18 08/27/18 08/27/18 12:37 12:46 12:57 Temperature 99.8 F H Pulse Rate 118 H Pulse Rate [ 107 H 105 H Anterior Bilateral Throughout] Respiratory 19 Rate Respiratory 20 20 Rate [Anterior Bilateral Throughout] Blood Pressure 105/57 O2 Sat by Pulse 79 L Oximetry 08/27/18 08/27/18 13:00 13:15 Temperature Pulse Rate 109 H Pulse Rate [ Anterior Bilateral Throughout] Respiratory 22 Rate Respiratory Rate [Anterior Bilateral Throughout] Blood Pressure 105/57 114/52 O2 Sat by Pulse 79 L 92 Oximetry - Reevaluation(s) Reevaluation #1: 08/27/18 13:17 abg on 3L 02 shows no hypoxia or co2 retention - EJ/Peripheral Line Neck R Time Out Performed: Yes Indications: nurses unable to establis Skin Cleansed in Sterile Fashion: Yes Size: 20 Dressing Placed: Tegaderm Patient Tolerated Procedure: well, no complications ED Medical Decision Making - Lab Data Result diagrams: 08/27/18 12:01 08/27/18 12:01 Lab Results 08/27/18 08/27/18 08/27/18 Range/Units 10:34 11:18 12:01 WBC (4.5-11.0) K/mm3 RBC (3.65-5.03) M/mm3 Hgb (11.8-15.2) gm/dl Hct (35.5-45.6) % MCV (84-94) fl MCH (28-32) pg MCHC (32-34) % RDW (13.2-15.2) % Plt Count (140-440) K/mm3 Lymph % (Auto) (13.4-35.0) % Free[place] % (Auto) (0.0-7.3) % Eos % (Auto) (0.0-4.3) % Baso % (Auto) (0.0-1.8) % Lymph # (1.2-5.4) K/mm3 Freeborn # (0.0-0.8) K/mm3 Eos # (0.0-0.4) K/mm3 Baso # (0.0-0.1) K/mm3 Seg Neutrophils % (40.0-70.0) % Seg Neutrophils # (1.8-7.7) K/mm3 APTT (24.2-36.6) Sec. VBG pH (7.320-7.420) Sodium (137-145) mmol/L Potassium (3.6-5.0) mmol/L Chloride (98-107) mmol/L Carbon Dioxide (22-30) mmol/L Anion Gap mmol/L BUN (9-20) mg/dL Creatinine (0.8-1.5) mg/dL Estimated GFR ml/min BUN/Creatinine Ratio % Glucose (75-100) mg/dL POC Glucose 123 H (70-105) Lactic Acid (0.7-2.0) mmol/L Calcium (8.4-10.2) mg/dL Magnesium (1.7-2.3) mg/dL Total Bilirubin (0.1-1.2) mg/dL AST (5-40) units/L ALT (7-56) units/L Alkaline Phosphatase (35-129) units/L Troponin T < 0.010 (0.00-0.029) ng/mL Total Protein (6.3-8.2) g/dL Albumin (3.9-5) g/dL Albumin/Globulin Ratio % TSH (0.270-4.200) mlU/mL Free T4 (0.76-1.46) ng/dL Urine Color Lindsay (Yellow) Urine Turbidity Slightly-cloudy (Clear) Urine pH 5.0 (5.0-7.0) Ur Specific Mck[place] 1.030 (1.003-1.030) Urine Protein 30 mg/dl (Negative) mg/dL Urine Glucose (UA) Neg (Negative) mg/dL Urine Ketones Neg (Negative) mg/dL Urine Blood Neg (Negative) Urine Nitrite Neg (Negative) Urine Bilirubin Neg (Negative) Urine Urobilinogen 4.0 (<2.0) mg/dL Ur Leukocyte Esterase Neg (Negative) Urine WBC (Auto) 2.0 (0.0-6.0) /HPF Urine RBC (Auto) 3.0 (0.0-6.0) /HPF Urine Bacteria (Auto) 1+ (Negative) /HPF Urine Mucus Few /HPF 08/27/18 08/27/18 08/27/18 Range/Units 12:01 12:01 12:01 WBC 14.2 H (4.5-11.0) K/mm3 RBC 4.51 (3.65-5.03) M/mm3 Hgb 12.2 (11.8-15.2) gm/dl Hct 38.3 (35.5-45.6) % MCV 85 (84-94) fl MCH 27 L (28-32) pg MCHC 32 (32-34) % RDW 19.5 H (13.2-15.2) % Plt Count 123 L (140-440) K/mm3 Lymph % (Auto) 11.1 L (13.4-35.0) % Free[place] % (Auto) 14.7 H (0.0-7.3) % Eos % (Auto) 0.0 (0.0-4.3) % Baso % (Auto) 0.2 (0.0-1.8) % Lymph # 1.6 (1.2-5.4) K/mm3 Freeborn # 2.1 H (0.0-0.8) K/mm3 Eos # 0.0 (0.0-0.4) K/mm3 Baso # 0.0 (0.0-0.1) K/mm3 Seg Neutrophils % 74.0 H (40.0-70.0) % Seg Neutrophils # 10.5 H (1.8-7.7) K/mm3 APTT 32.9 (24.2-36.6) Sec. VBG pH (7.320-7.420) Sodium 153 H (137-145) mmol/L Potassium 4.3 (3.6-5.0) mmol/L Chloride 118.7 H (98-107) mmol/L Carbon Dioxide 27 (22-30) mmol/L Anion Gap 12 mmol/L BUN 54 H (9-20) mg/dL Creatinine 1.6 H (0.8-1.5) mg/dL Estimated GFR 54 ml/min BUN/Creatinine Ratio 34 % Glucose 123 H (75-100) mg/dL POC Glucose (70-105) Lactic Acid (0.7-2.0) mmol/L Calcium 8.4 (8.4-10.2) mg/dL Magnesium 2.70 H (1.7-2.3) mg/dL Total Bilirubin 0.50 (0.1-1.2) mg/dL AST 19 (5-40) units/L ALT 9 (7-56) units/L Alkaline Phosphatase 92 (35-129) units/L Troponin T < 0.010 (0.00-0.029) ng/mL Total Protein 8.7 H (6.3-8.2) g/dL Albumin 2.7 L (3.9-5) g/dL Albumin/Globulin Ratio 0.5 % TSH (0.270-4.200) mlU/mL Free T4 (0.76-1.46) ng/dL Urine Color (Yellow) Urine Turbidity (Clear) Urine pH (5.0-7.0) Ur Specific Mck[place] (1.003-1.030) Urine Protein (Negative) mg/dL Urine Glucose (UA) (Negative) mg/dL Urine Ketones (Negative) mg/dL Urine Blood (Negative) Urine Nitrite (Negative) Urine Bilirubin (Negative) Urine Urobilinogen (<2.0) mg/dL Ur Leukocyte Esterase (Negative) Urine WBC (Auto) (0.0-6.0) /HPF Urine RBC (Auto) (0.0-6.0) /HPF Urine Bacteria (Auto) (Negative) /HPF Urine Mucus /HPF 08/27/18 08/27/18 08/27/18 Range/Units 12:01 12:01 12:01 WBC (4.5-11.0) K/mm3 RBC (3.65-5.03) M/mm3 Hgb (11.8-15.2) gm/dl Hct (35.5-45.6) % MCV (84-94) fl MCH (28-32) pg MCHC (32-34) % RDW (13.2-15.2) % Plt Count (140-440) K/mm3 Lymph % (Auto) (13.4-35.0) % Free[place] % (Auto) (0.0-7.3) % Eos % (Auto) (0.0-4.3) % Baso % (Auto) (0.0-1.8) % Lymph # (1.2-5.4) K/mm3 Free[place] # (0.0-0.8) K/mm3 Eos # (0.0-0.4) K/mm3 Baso # (0.0-0.1) K/mm3 Seg Neutrophils % (40.0-70.0) % Seg Neutrophils # (1.8-7.7) K/mm3 APTT (24.2-36.6) Sec. VBG pH 7.287 L (7.320-7.420) Sodium (137-145) mmol/L Potassium (3.6-5.0) mmol/L Chloride (98-107) mmol/L Carbon Dioxide (22-30) mmol/L Anion Gap mmol/L BUN (9-20) mg/dL Creatinine (0.8-1.5) mg/dL Estimated GFR ml/min BUN/Creatinine Ratio % Glucose (75-100) mg/dL POC Glucose (70-105) Lactic Acid 1.50 (0.7-2.0) mmol/L Calcium (8.4-10.2) mg/dL Magnesium (1.7-2.3) mg/dL Total Bilirubin (0.1-1.2) mg/dL AST (5-40) units/L ALT (7-56) units/L Alkaline Phosphatase (35-129) units/L Troponin T (0.00-0.029) ng/mL Total Protein (6.3-8.2) g/dL Albumin (3.9-5) g/dL Albumin/Globulin Ratio % TSH 2.190 (0.270-4.200) mlU/mL Free T4 0.65 L (0.76-1.46) ng/dL Urine Color (Yellow) Urine Turbidity (Clear) Urine pH (5.0-7.0) Ur Specific M[place] (1.003-1.030) Urine Protein (Negative) mg/dL Urine Glucose (UA) (Negative) mg/dL Urine Ketones (Negative) mg/dL Urine Blood (Negative) Urine Nitrite (Negative) Urine Bilirubin (Negative) Urine Urobilinogen (<2.0) mg/dL Ur Leukocyte Esterase (Negative) Urine WBC (Auto) (0.0-6.0) /HPF Urine RBC (Auto) (0.0-6.0) /HPF Urine Bacteria (Auto) (Negative) /HPF Urine Mucus /HPF - EKG Data -: EKG Interpreted by [facility] EKG shows normal: sinus rhythm (qrs 79), axis (qrs 79), QRS complexes, ST-T waves (no stemi) Rate: tachycardia (115) - EKG Data When compared to previous EKG there are: no significant change - Radiology Data Radiology results: report reviewed PROCEDURE: XR CHEST 1V AP HISTORY: sob COMPARISONS: None FINDINGS: Heart is normal in size. Focal airspace consolidations in the right upper lobe and right lower lobe. Small opacity in the left lower lobe. No pleural effusion or pneumothorax. Median sternotomy wires are noted. No aggressive osseous lesions. IMPRESSION: 1. Bilateral pneumonia, right larger than the left. Continue imaging follow-up until complete resolution. - Medical Decision Making Patient with bilateral pneumonia and dehydration. ABG on 3 L shows adequate oxygenation without CO2 retention. Cultures pending. 30 mL per KG bolus of normal saline ordered as per sepsis protocol. DuoNeb provided. Vancomycin and Zosyn initiated. Hospitalist apartment Facial sutures that were placed on 08/22 here after fall were removed in the ed - Differential Diagnosis sepsis, pneumonia, UTI, PE, encephalopathy, CO2 retention Critical Care Time: No Critical care attestation.: If time is entered above; I have spent that time in minutes in the direct care of this critically ill patient, excluding procedure time. ED Disposition Clinical Impression: Bilateral pneumonia, HIV (human immunodeficiency virus infection), O2 dependent, Feeding by G-tube, Encounter for removal of sutures, Encephalopathy Disposition: 09 OP ADMIT IP TO THIS HOSP Is pt being admited?: Yes Condition: Stable Referrals: PRIMARY CARE, [Primary Care Provider] - 3-5 Days Time of Disposition: 13:31 (dr melendez/hosp)
[2018-08-27 12:20] LABS: Bacteria,Urine 1+ /HPF (Negative); Bilirubin,Urine NEG (Negative); Blood,Urine NEG (Negative); Color,Urine Amber (Yellow); Mucus,Urine FEW /HPF
[2018-08-27 12:24] LABS: Basophils % (Auto) 0.2 % (0.0-1.8); Hematocrit 38.3 % (35.5-45.6); Hemoglobin 12.2 gm/dl (11.8-15.2); Lymphocytes # (Auto) 1.6 K/mm3 (1.2-5.4); Lymphocytes % (Auto) 11.1 % (13.4-35.0); Mean Corpuscular HGB Conc 32 % (32-34); Mean Corpuscular Volume 85 fl (84-94); Monocytes # (Auto) 2.1 K/mm3 (0.0-0.8); Monocytes % (Auto) 14.7 % (0.0-7.3); Platelet Count 123 K/mm3 (140-440); Red Blood Count 4.51 M/mm3 (3.65-5.03); Red Cell Distribution Width 19.5 % (13.2-15.2)
--- NOTE | 2018-08-27 12:36 | XRay Report ---
PROCEDURE: XR CHEST 1V AP HISTORY: sob COMPARISONS: None FINDINGS: Heart is normal in size. Focal airspace consolidations in the right upper lobe and right lower lobe. Small opacity in the left lower lobe. No pleural effusion or pneumothorax. Median sternotomy wires are noted. No aggressive osseous lesions. IMPRESSION: 1. Bilateral pneumonia, right larger than the left. Continue imaging follow-up until complete resolut ion. This document is electronically signed by Mady Alvarez MD., August 27 2018 12:34:10 PM ET
[2018-08-27] MEDS ORDERED: VANCOMYCIN 1,250 MG in NACL 0.9% 250ML 250 ML IV SCH (12:45)
[2018-08-27 12:54] LABS: Alanine Aminotransferase 9 units/L (7-56); Albumin 2.7 g/dL (3.9-5); BUN/Creatinine Ratio 34; Blood Urea Nitrogen 54 mg/dL (9-20); Calcium 8.4 mg/dL (8.4-10.2); Hemolysis Index 3
[2018-08-27 13:00] LABS: Free T4 (Free Thyroxine) 0.65 ng/dL (0.76-1.46)
[2018-08-27] MEDS ORDERED: VANCOMYCIN 1,250 MG in NACL 0.9% 250ML 250 ML IV ONE (14:00)
[2018-08-27] MEDS ORDERED: TYLENOL PO PRN (17:35)
[2018-08-27] MEDS ORDERED: ZOFRAN IV PRN (17:35)
[2018-08-27] MEDS ORDERED: SODIUM CHLORIDE FLUSH SYRINGE 10 ML IV PRN (17:35)
[2018-08-27] MEDS ORDERED: DILAUDID IV PRN (17:36)
[2018-08-27] MEDS ORDERED: IBUPROFEN PO PRN (17:36)
[2018-08-27] MEDS ORDERED: PROVENTIL IH PRN (17:39)
--- NOTE | 2018-08-27 17:43 | History and Physical Report ---
History of Present Illness Date of examination: 08/27/18 Date of admission: 08/27/18 15:17 Chief complaint: Resp distress since AM History of present illness: 58-year-old male with a past medical history HIVAIDS, toxoplasmosis, CVA residual weakness, history of respiratory failure status post trach reversal, headache, syphilitic encephalitis, autoimmune hepatitis, traumatic brain injury, cocaine and alcohol abuse sent to the hospital from [facility] with tachycardia and hypoxia noted by halfway staff this a.m. Patient will open his eyes voice and follows commands although sleeping and not really speaking but will nod in response to some questions. 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 Discharge diagnosis---from previous admission --Acute on chronic hypoxic respiratory failure; --Right-sided pneumonia; HCAP --Metabolic encephalopathy; history of syphilitic encephalopathy --HIV-AIDS; on antiretrovirals --traumatic brain injury; supportive care --History of CVA with residual weakness; PTOT --Hypertension; moderate control, continue current antihypertensives --Moderate malnutrition; supportive care/PEG feeds per protocol CD4 count 740 on 03/2018 Past Medical History Hypertension: Yes Diabetes: Yes Liver Disease: Yes HIV: Yes Additional medical history: 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,insomnia, autoimmune hepatitis, cerebral infarction, urine retention, toxoplasmosis Surgical History Additional Surgical History: tracheostomy, gatrostomy Social History Smoking Status: Never Smoker Substance Use Type: None Medications Home Medications: Home Medications Medication Instructions Recorded Confirmed Last Taken Type Acetylcysteine 20% Oral [Mucomyst 3 ml INTRATRACH Q6H 03/28/18 03/28/18 Unknown History Oral] Aspirin [Aspirin TAB] 325 mg FEEDTUBE DAILY 03/28/18 03/28/18 Unknown History Atorvastatin Calcium [Lipitor] 20 mg FEEDTUBE HS 03/28/18 03/28/18 Unknown His tory Bisacodyl [Bisac-Evac] 10 mg RC DAILY PRN 03/28/18 03/28/18 Unknown History Cholecalciferol (Vitamin D3) 2,000 unit FEEDTUBE QAM 03/28/18 03/28/18 Unknown History [Vitamin D3] Darunavir Ethanolate [Prezista] 8 ml FEEDTUBE QAM 03/28/18 03/28/18 Unknown History Docusate Sodium [Move It Along] 100 mg FEEDTUBE Q12H PRN 03/28/18 03/28/18 Unknown History Doxazosin Mesylate [Cardura] 1 mg FEEDTUBE HS 03/28/18 03/28/18 Unknown History Ergocalciferol [Vitamin D2] 1 cap FEEDTUBE QWEEK 03/28/18 03/28/18 Unknown History FLUoxetine HCL [PROzac] 40 mg FEEDTUBE QAM 03/28/18 03/28/18 Unknown History Gabapentin [Neurontin] 300 mg FEEDTUBE HS 03/28/18 03/28/18 Unknown History Haloperidol Decanoate [Haldol 50 mg IM Q4W 03/28/18 03/28/18 Unknown History Decanoate] Haloperidol Lactate [Haldol] 0.4 ml IM Q8H PRN 03/28/18 03/28/18 Unknown History Ipratropium/Albuterol Sulfate 1 ampul IH Q4HR 03/28/18 03/28/18 Unknown History [DUONEB *Not for PRN Use*] LORazepam [Ativan] 1 mg FEEDTUBE BID 03/28/18 03/28/18 Unknown History Leucovorin (Nf) 25 mg PO QAM 03/28/18 03/28/18 Unknown History Midodrine [Proamatine] 15 mg FEEDTUBE Q8H 03/28/18 03/28/18 Unknown History Polyethylene Glycol 3350 17 gm FEEDTUBE DAILY PRN 03/28/18 03/28/18 Unknown History [Smoothlax] Pyrimethamine [Daraprim] 25 mg FEEDTUBE QAM 03/28/18 03/28/18 Unknown History Quetiapine Fumarate [Seroquel] 100 mg FEEDTUBE Q8H 03/28/18 03/28/18 Unknown History Ritonavir [Norvir] 1.3 ml FEEDTUBE DAILY 03/28/18 03/28/18 Unknown History Scopolamine [Transderm-Scop] 1 each TD Q72H 03/28/18 03/28/18 Unknown History Sennosides [Senna Laxative] 17.2 mg FEEDTUBE HS 03/28/18 03/28/18 Unknown History Sodium Chloride 2 tab PO Q8H 03/28/18 03/28/18 Unknown History lamiVUDine [Lamivudine] 30 ml FEEDTUBE QAM 03/28/18 03/28/18 Unknown History raNITIdine HCl [Zantac 15mg/ml 10 ml FEEDTUBE Q12H 03/28/18 03/28/18 Unknown History Oral Liq] sulfADIAZINE 1,000 mg FEEDTUBE Q12H 03/28/18 03/28/18 Unknown History Sulfamethoxazole/Trimethoprim 285 mg PO BID 14 Days oral.liqd 03/31/18 Unknown Rx [Bactrim 200-40 mg/5 ml Oral Liq] traMADol [Ultram 50 MG tab] 50 mg FEEDTUBE TID #10 tablet 03/31/18 Unknown Rx Bacitracin Zinc Oint [Antibiotic 1 applicatio TP BID #1 tube 08/22/18 Unknown Rx Oint] Review of systems ROS: Stated complaint: AMS/LOW O2 STATS/HIGH HEART BEAT Other details as noted in HPI Comment: All other systems reviewed and negative Medications and Allergies Allergies Allergy/AdvReac Type Severity Reaction Status Date / Time No Known Allergies Allergy Verified 08/27/18 10:38 Home Medications Medication Instructions Recorded Confirmed Last Taken Type Acetylcysteine 20% Oral [Mucomyst 3 ml INTRATRACH Q6H 03/28/18 03/28/18 Unknown History Oral] Aspirin [Aspirin TAB] 325 mg FEEDTUBE DAILY 03/28/18 03/28/18 Unknown History Atorvastatin Calcium [Lipitor] 20 mg FEEDTUBE HS 03/28/18 03/28/18 Unknown History Bisacodyl [Bisac-Evac] 10 mg RC DAILY PRN 03/28/18 03/28/18 Unknown History Cholecalciferol (Vitamin D3) 2,000 unit FEEDTUBE QAM 03/28/18 03/28/18 Unknown History [Vitamin D3] Darunavir Ethanolate [Prezista] 8 ml FEEDTUBE QAM 03/28/18 03/28/18 Unknown History Docusate Sodium [Move It Along] 100 mg FEEDTUBE Q12H PRN 03/28/18 03/28/18 Unknown History Doxazosin Mesylate [Cardura] 1 mg FEEDTUBE HS 03/28/18 03/28/18 Unknown History Ergocalciferol [Vitamin D2] 1 cap FEEDTUBE QWEEK 03/28/18 03/28/18 Unknown History FLUoxetine HCL [PROzac] 40 mg FEEDTUBE QAM 03/28/18 03/28/18 Unknown History Gabapentin [Neurontin] 300 mg FEEDTUBE HS 03/28/18 03/28/18 Unknown History Haloperidol Decanoate [Haldol 50 mg IM Q4W 03/28/18 03/28/18 Unknown History Decanoate] Haloperidol Lactate [Haldol] 0.4 ml IM Q8H PRN 03/28/18 03/28/18 Unknown History Ipratropium/Albuterol Sulfate 1 ampul IH Q4HR 03/28/18 03/28/18 Unknown History [DUONEB *Not for PRN Use*] LORazepam [Ativan] 1 mg FEEDTUBE BID 03/28/18 03/28/18 Unknown History Leucovorin (Nf) 25 mg PO QAM 03/28/18 03/28/18 Unknown History Midodrine [Proamatine] 15 mg FEEDTUBE Q8H 03/28/18 03/28/18 Unknown History Polyethylene Glycol 3350 17 gm FEEDTUBE DAILY PRN 03/28/18 03/28/18 Unknown History [Smoothlax] Pyrimethamine [Daraprim] 25 mg FEEDTUBE QAM 03/28/18 03/28/18 Unknown History Quetiapine Fumarate [Seroquel] 100 mg FEEDTUBE Q8H 03/28/18 03/28/18 Unknown H istory Ritonavir [Norvir] 1.3 ml FEEDTUBE DAILY 03/28/18 03/28/18 Unknown History Scopolamine [Transderm-Scop] 1 each TD Q72H 03/28/18 03/28/18 Unknown History Sennosides [Senna Laxative] 17.2 mg FEEDTUBE HS 03/28/18 03/28/18 Unknown History Sodium Chloride 2 tab PO Q8H 03/28/18 03/28/18 Unknown History lamiVUDine [Lamivudine] 30 ml FEEDTUBE QAM 03/28/18 03/28/18 Unknown History raNITIdine HCl [Zantac 15mg/ml 10 ml FEEDTUBE Q12H 03/28/18 03/28/18 Unknown History Oral Liq] sulfADIAZINE 1,000 mg FEEDTUBE Q12H 03/28/18 03/28/18 Unknown History Sulfamethoxazole/Trimethoprim 285 mg PO BID 14 Days oral.liqd 03/31/18 Unknown Rx [Bactrim 200-40 mg/5 ml Oral Liq] traMADol [Ultram 50 MG tab] 50 mg FEEDTUBE TID #10 tablet 03/31/18 Unknown Rx Bacitracin Zinc Oint [Antibiotic 1 applicatio TP BID #1 tube 08/22/18 Unknown Rx Oint] Active Meds: Active Medications Acetaminophen (Tylenol) 650 mg PO Q4H PRN PRN Reason: Pain MILD(1-3)/Fever >100.5/DELAGDO Albuterol (Proventil) 2.5 mg IH Q4HRT PRN PRN Reason: Shortness Of Breath Albuterol/Ipratropium (Duoneb *Not For Prn Use*) 1 ampul IH QIDRT BLOSSOM Famotidine (Pepcid) 20 mg PO BID BLOSSOM Hydromorphone HCl (Dilaudid) 0.5 mg IV Q3H PRN PRN Reason: Pain , Severe (7-10) Sodium Chloride (Nacl 0.9% 1000 Ml) 1,000 mls @ 75 mls/hr IV DIRECT BLOSSOM Stop: 08/28/18 16:00 Ibuprofen (Motrin) 600 mg PO Q6H PRN PRN Reason: Pain, Mild (1-3) Ondansetron HCl (Zofran) 4 mg IV Q8H PRN PRN Reason: Nausea And Vomiting Sodium Chloride (Sodium Chloride Flush Syringe 10 Ml) 10 ml IV BID BLOSSOM Sodium Chloride (Sodium Chloride Flush Syringe 10 Ml) 10 ml IV PRN PRN PRN Reason: LINE FLUSH Exam - Physical Exam Narrative exam: Emaciated male lying in bed lethargic but responsive - Constitutional Vitals: Temp Pulse Resp BP Pulse Ox 97.4 F L 97 H 17 99/66 98 08/27/18 15:54 08/27/18 15:54 08/27/18 15:54 08/27/18 15:54 08/27/18 15:11 General appearance: Present: mild distress - EENT Eyes: Present: PERRL ENT: hearing intact, clear oral mucosa - Neck Neck: Present: supple, normal ROM - Respiratory Respiratory effort: normal Respiratory: bilateral: CTA, diminished, rhonchi, wheezing - Cardiovascular Heart rate: 115 Rhythm: regular Heart Sounds: Present: S1 & S2. Absent: rub, click - Extremities Extremities: pulses intact, pulses symmetrical, No edema Peripheral Pulses: within normal limits - Abdominal General gastrointestinal: Present: soft, non-tender, non-distended, normal bowel sounds Male genitourinary: Present: normal - Rectal Rectal Exam: deferred - Integumentary Integumentary: Present: clear, warm, dry - Musculoskeletal Musculoskeletal: right sided weakness, generalized weakness - Psychiatric Psychiatric: depressed, other (Lethargic) - Neurologic Neurologic: CNII-XII intact, focal deficits (Rt side weakness) - Allied Health Allied health notes reviewed: nursing, case management Results - Labs CBC & Chem 7: 08/28/18 05:02 08/28/18 05:02 Labs: Laboratory Last Values WBC 14.2 K/mm3 (4.5-11.0) H 08/27/18 12:01 RBC 4.51 M/mm3 (3.65-5.03) 08/27/18 12:01 Hgb 12.2 gm/dl (11.8-15.2) 08/27/18 12:01 Hct 38.3 % (35.5-45.6) 08/27/18 12:01 MCV 85 fl (84-94) 08/27/18 12:01 MCH 27 pg (28-32) L 08/27/18 12:01 MCHC 32 % (32-34) 08/27/18 12:01 RDW 19.5 % (13.2-15.2) H 08/27/18 12:01 Plt Count 123 K/mm3 (140-440) L 08/27/18 12:01 Lymph % (Auto) 11.1 % (13.4-35.0) L 08/27/18 12:01 [place] % (Auto) 14.7 % (0.0-7.3) H 08/27/18 12:01 Eos % (Auto) 0.0 % (0.0-4.3) 08/27/18 12:01 Baso % (Auto) 0.2 % (0.0-1.8) 08/27/18 12:01 Lymph # 1.6 K/mm3 (1.2-5.4) 08/27/18 12:01 [place] # 2.1 K/mm3 (0.0-0.8) H 08/27/18 12:01 Eos # 0.0 K/mm3 (0.0-0.4) 08/27/18 12:01 Baso # 0.0 K/mm3 (0.0-0.1) 08/27/18 12:01 Seg Neutrophils % 74.0 % (40.0-70.0) H 08/27/18 12:01 Seg Neutrophils # 10.5 K/mm3 (1.8-7.7) H 08/27/18 12:01 APTT 32.9 Sec. (24.2-36.6) 08/27/18 12:01 POC ABG pH 7.367 (7.35-7.45) 08/27/18 13:17 POC ABG pCO2 39.9 (35-45) 08/27/18 13:17 POC ABG pO2 88 (80-105) 08/27/18 13:17 POC ABG HCO3 22.9 (22-26 mml/L) 08/27/18 13:17 POC ABG Total CO2 24 (23-27mmol/L) 08/27/18 13:17 POC ABG O2 Sat 96 08/27/18 13:17 POC ABG Base Excess -2 ((-2) - (+3)mmol/L) 08/27/18 13:17 VBG pH 7.287 (7.320-7.420) L 08/27/18 12:01 FiO2 32 % 08/27/18 13:17 Sodium 153 mmol/L (137-145) H 08/27/18 12:01 Potassium 4.3 mmol/L (3.6-5.0) 08/27/18 12:01 Chloride 118.7 mmol/L (98-107) H 08/27/18 12:01 Carbon Dioxide 27 mmol/L (22-30) 08/27/18 12:01 Anion Gap 12 mmol/L 08/27/18 12:01 BUN 54 mg/dL (9-20) H 08/27/18 12:01 Creatinine 1.6 mg/dL (0.8-1.5) H 08/27/18 12:01 Estimated GFR 54 ml/min 08/27/18 12:01 BUN/Creatinine Ratio 34 % 08/27/18 12:01 Glucose 123 mg/dL (75-100) H 08/27/18 12:01 POC Glucose 123 (70-105) H 08/27/18 10:34 Lactic Acid 1.70 mmol/L (0.7-2.0) 08/27/18 13:32 Calcium 8.4 mg/dL (8.4-10.2) 08/27/18 12:01 Magnesium 2.70 mg/dL (1.7-2.3) H 08/27/18 12:01 Total Bilirubin 0.50 mg/dL (0.1-1.2) 08/27/18 12:01 AST 19 units/L (5-40) 08/27/18 12:01 ALT 9 units/L (7-56) 08/27/18 12:01 Alkaline Phosphatase 92 units/L (35-129) 08/27/18 12:01 Ammonia 25.0 umol/L (25-60) 08/27/18 13:32 Troponin T < 0.010 ng/mL (0.00-0.029) 08/27/18 12:01 Total Protein 8.7 g/dL (6.3-8.2) H 08/27/18 12:01 Albumin 2.7 g/dL (3.9-5) L 08/27/18 12:01 Albumin/Globulin Ratio 0.5 % 08/27/18 12:01 TSH 2.190 mlU/mL (0.270-4.200) 08/27/18 12:01 Free T4 0.65 ng/dL (0.76-1.46) L 08/27/18 12:01 Urine Color [place] (Yellow) 08/27/18 11:18 Urine Turbidity Slightly-cloudy (Clear) 08/27/18 11:18 Urine pH 5.0 (5.0-7.0) 08/27/18 11:18 Ur Specific [place] 1.030 (1.003-1.030) 08/27/18 11:18 Urine Protein 30 mg/dl mg/dL (Negative) 08/27/18 11:18 Urine Glucose (UA) Neg mg/dL (Negative) 08/27/18 11:18 Urine Ketones Neg mg/dL (Negative) 08/27/18 11:18 Urine Blood Neg (Negative) 08/27/18 11:18 Urine Nitrite Neg (Negative) 08/27/18 11:18 Urine Bilirubin Neg (Negative) 08/27/18 11:18 Urine Urobilinogen 4.0 mg/dL (<2.0) 08/27/18 11:18 Ur Leukocyte Esterase Neg (Negative) 08/27/18 11:18 Urine WBC (Auto) 2.0 /HPF (0.0-6.0) 08/27/18 11:18 Urine RBC (Auto) 3.0 /HPF (0.0-6.0) 08/27/18 11:18 Urine Bacteria (Auto) 1+ /HPF (Negative) 08/27/18 11:18 Urine Mucus Few /HPF 08/27/18 11:18 - Imaging and Cardiology EKG: report reviewed (Sinus tachycardia) Assessment and Plan Advance Directives: Yes (Full code) VTE prophylaxis?: Chemical Plan of care discussed with patient/family: Yes - Patient Problems (1) Respiratory failure with hypoxia Current Visit: Yes Status: Acute Qualifiers: Chronicity: acute Qualified Code(s): J96.01 - Acute respiratory failure with hypoxia Plan to address problem: Sec to biateral Pneumonia High flow O2 for now Bipap if necessary Intubation if necessary (2) Bilateral pneumonia Current Visit: Yes Status: Acute Qualifiers: Lung location: unspecified part of lung Plan to address problem: Bilateral Pneumonia Will treat as CAP IV Zosyn and Vancomycin for now PCP in differential diagnosis Will defer to ID regarding possibility of PCP (3) HIV (human immunodeficiency virus infection) Current Visit: Yes Status: Chronic Qualifiers: HIV symptom status: symptomatic Qualified Code(s): B20 - Human immunodeficiency virus [HIV] disease Plan to address problem: Last CD 4 count is in Mid 700's Cont antiretrovirals (4) CVA, old, dysarthria Current Visit: Yes Status: Chronic Plan to address problem: Supportive care (5) Malnutrition Current Visit: Yes Status: Chronic Qualifiers: Malnutrition type: protein-calorie malnutrition Protein-calorie maln utrition severity: severe Qualified Code(s): E43 - Unspecified severe protein- calorie malnutrition Plan to address problem: Dietitian consult (6) COPD (chronic obstructive pulmonary disease) Current Visit: Yes Status: Chronic Qualifiers: Emphysema type: unspecified Plan to address problem: Cont duonebs (7) HLD (hyperlipidemia) Current Visit: Yes Status: Chronic Qualifiers: Hyperlipidemia type: mixed hyperlipidemia Qualified Code(s): E78.2 - Mixed hyperlipidemia Plan to address problem: Cont statins (8) GERD (gastroesophageal reflux disease) Current Visit: Yes Status: Chronic Qualifiers: Esophagitis presence: without esophagitis Qualified Code(s): K21.9 - Gastro-esophageal reflux disease without esophagitis Plan to address problem: Cont PPI's (9) Vitamin D deficiency Current Visit: Yes Status: Chronic Plan to address problem: Cont Vit D (10) Peripheral neuropathy Current Visit: Yes Status: Chronic Qualifiers: Peripheral neuropathy type: polyneuropathy, unspecified Qualified Code(s): G62.9 - Polyneuropathy, unspecified Plan to address problem: Cont Gabapentin (11) Bipolar 1 disorder Current Visit: Yes Status: Chronic Plan to address problem: Cont seroquel (12) DVT prophylaxis Current Visit: Yes Status: Acute Plan to address problem: Lovenox and GI prophylaxis
[2018-08-27] MEDS ORDERED: NACL 0.9% 1000 ML 1,000 ML IV SCH (18:00)
[2018-08-27] MEDS ORDERED: SODIUM BICARBONATE FEEDTUBE PRN (18:41)
[2018-08-27] MEDS ORDERED: SIMPLE SYRUP FEEDTUBE PRN ×2 (18:41)
[2018-08-27] MEDS ORDERED: PANCREAZE DR 10,500 UNIT FEEDTUBE PRN (18:41)
[2018-08-27] MEDS: DUONEB *Not for PRN Use IH SCH (21:01)
[2018-08-27] MEDS: PEPCID PO SCH (22:02)
[2018-08-27] MEDS: SODIUM CHLORIDE FLUSH SYRINGE 10 ML IV SCH (22:13)
[2018-08-28 05:49] LABS: Basophils % (Auto) 0.2 % (0.0-1.8); Hematocrit 35.4 % (35.5-45.6); Hemoglobin 11.3 gm/dl (11.8-15.2); Lymphocytes # (Auto) 1.8 K/mm3 (1.2-5.4); Lymphocytes % (Auto) 12.6 % (13.4-35.0); Mean Corpuscular HGB Conc 32 % (32-34); Mean Corpuscular Volume 85 fl (84-94); Monocytes # (Auto) 1.6 K/mm3 (0.0-0.8); Monocytes % (Auto) 11.3 % (0.0-7.3); Platelet Count 110 K/mm3 (140-440); Red Blood Count 4.14 M/mm3 (3.65-5.03); Red Cell Distribution Width 19.7 % (13.2-15.2)
[2018-08-28 06:09] LABS: Alanine Aminotransferase 15 units/L (7-56); Albumin 2.6 g/dL (3.9-5); BUN/Creatinine Ratio 32; Blood Urea Nitrogen 35 mg/dL (9-20); Calcium 8.8 mg/dL (8.4-10.2); Hemolysis Index 4
[2018-08-28] MEDS ORDERED: HALDOL IM PRN (07:30)
[2018-08-28] MEDS ORDERED: DOCUSATE SODIUM 100 MG FEEDTUBE PRN (07:30)
[2018-08-28] MEDS ORDERED: RANITIDINE FEEDTUBE SCH (07:30)
[2018-08-28] MEDS ORDERED: MIRALAX 3350 FEEDTUBE PRN (07:30)
[2018-08-28] MEDS: DUONEB *Not for PRN Use IH SCH ×4 (07:46→20:09)
[2018-08-28] MEDS ORDERED: HALDOL DECANOATE IM SCH (08:00)
[2018-08-28] MEDS ORDERED: DARUNAVIR FEEDTUBE SCH (10:00)
[2018-08-28] MEDS ORDERED: DUONEB *Not for PRN Use IH SCH (10:00)
[2018-08-28] MEDS ORDERED: NON-FORMULARY (Cholecalciferol (Vitamin D3) [Vitamin D3] 2,000 UNIT) FEEDTUBE SCH (10:00)
[2018-08-28] MEDS ORDERED: PYRIMETHAMINE 25 MG FEEDTUBE SCH (10:00)
[2018-08-28] MEDS ORDERED: LEUCOVORIN 25 MG PO SCH (10:00)
[2018-08-28] MEDS ORDERED: RITONAVIR FEEDTUBE SCH (10:00)
[2018-08-28] MEDS ORDERED: NON-FORMULARY (Fluoxetine Hcl [Prozac] 40 MG) FEEDTUBE SCH (10:00)
--- NOTE | 2018-08-28 11:52 | Progress Note ---
Assessment and Plan /Acute Respiratory failure with hypoxia Sec to biateral Pneumonia, High flow O2 for now, Bipap if necessary cont abx, frequent nebs /Bilateral pneumonia Will treat as CAP IV Zosyn and Vancomycin for now PCP in differential diagnosis Will defer to ID regarding possibility of PCP / COPD (chronic obstructive pulmonary disease) with exacerbation, POA Cont duonebs / HIV (human immunodeficiency virus infection) Last CD 4 count is in Mid 700's Cont antiretrovirals /hypernatremia, Na 60 today, due to dehydration, cont hypotonic fluid /DAMON, vasomotor nephropathy, resolved with iv fluid / CVA, old, dysarthria Supportive care / Malnutrition, severe Dietitian consult / HLD (hyperlipidemia) Cont statins / GERD (gastroesophageal reflux disease) Cont PPI's / Vitamin D deficiency Cont Vit D / Peripheral neuropathy Cont Gabapentin / Bipolar 1 disorder Cont seroquel / DVT prophylaxis Lovenox and GI prophylaxis Physical Exam: Constitutional: No acute distress. Cachexia + Head, Ears, Nose: Normocephalic, atraumatic. External ears, nose normal Eyes: Conjunctivae/corneas clear. No icterus. No ptosis. Neck: Supple, no meningeal signs. Old trach scar Oral: poor oral hygiene, no thrush Cardiovascular: S1, S2 normal. Respiratory: few rhonchi bilaterally GI: Soft, non-tender; bowel sounds normal. No peritoneal signs Musculoskeletal: No pedal edema, no cyanosis. Skin: No rash or abscess Psych: no agitation Neurological: Awake, but not oriented to time place or person Subjective Date of service: 08/28/18 Interval history: Pt seen and examined appears lethargic, does not follow commend, no family at bedside Objective - Constitutional Vitals: Vital Signs - 12hr 08/28/18 08/28/18 08/28/18 00:00 05:45 06:00 Temperature 98.4 F 94.4 F L Pulse Rate 53 L 119 H Pulse Rate [ Anterior Bilateral Throughout] Respiratory 28 H 24 Rate Respiratory Rate [Anterior Bilateral Throughout] Blood Pressure 109/60 Blood Pressure 92/55 [Right] O2 Sat by Pulse 85 94 Oximetry 08/28/18 08/28/18 07:46 07:56 Temperature Pulse Rate Pulse Rate [ 110 H 110 H Anterior Bilateral Throughout] Respiratory Rate Respiratory 18 18 Rate [Anterior Bilateral Throughout] Blood Pressure Blood Pressure [Right] O2 Sat by Pulse Oximetry - Labs CBC & Chem 7: 08/29/18 04:55 08/29/18 04:55 Labs: Abnormal lab results 08/27/18 08/27/18 08/27/18 Range/Units 12:01 12:01 12:01 WBC 14.2 H (4.5-11.0) K/mm3 Hgb (11.8-15.2) gm/dl Hct (35.5-45.6) % MCH 27 L (28-32) pg RDW 19.5 H (13.2-15.2) % Plt Count 123 L (140-440) K/mm3 Lymph % (Auto) 11.1 L (13.4-35.0) % [place] % (Auto) 14.7 H (0.0-7.3) % [place] # 2.1 H (0.0-0.8) K/mm3 Seg Neutrophils % 74.0 H (40.0-70.0) % Seg Neutrophils # 10.5 H (1.8-7.7) K/mm3 VBG pH 7.287 L (7.320-7.420) Sodium 153 H (137-145) mmol/L Chloride 118.7 H (98-107) mmol/L BUN 54 H (9-20) mg/dL Creatinine 1.6 H (0.8-1.5) mg/dL Glucose 123 H (75-100) mg/dL Hemoglobin A1c (4-6) % Magnesium 2.70 H (1.7-2.3) mg/dL AST (5-40) units/L Total Protein 8.7 H (6.3-8.2) g/dL Albumin 2.7 L (3.9-5) g/dL Free T4 (0.76-1.46) ng/dL 08/27/18 08/27/18 08/28/18 Range/Units 12:01 12:01 05:02 WBC 14.1 H (4.5-11.0) K/mm3 Hgb 11.3 L (11.8-15.2) gm/dl Hct 35.4 L (35.5-45.6) % MCH 27 L (28-32) pg RDW 19.7 H (13.2-15.2) % Plt Count 110 L (140-440) K/mm3 Lymph % (Auto) 12.6 L (13.4-35.0) % [place] % (Auto) 11.3 H (0.0-7.3) % [place] # 1.6 H (0.0-0.8) K/mm3 Seg Neutrophils % 75.9 H (40.0-70.0) % Seg Neutrophils # 10.7 H (1.8-7.7) K/mm3 VBG pH (7.320-7.420) Sodium (137-145) mmol/L Chloride (98-107) mmol/L BUN (9-20) mg/dL Creatinine (0.8-1.5) mg/dL Glucose (75-100) mg/dL Hemoglobin A1c 6.3 H (4-6) % Magnesium (1.7-2.3) mg/dL AST (5-40) units/L Total Protein (6.3-8.2) g/dL Albumin (3.9-5) g/dL Free T4 0.65 L (0.76-1.46) ng/dL 08/28/18 Range/Units 05:02 WBC (4.5-11.0) K/mm3 Hgb (11.8-15.2) gm/dl Hct (35.5-45.6) % MCH (28-32) pg RDW (13.2-15.2) % Plt Count (140-440) K/mm3 Lymph % (Auto) (13.4-35.0) % [place] % (Auto) (0.0-7.3) % [place] # (0.0-0.8) K/mm3 Seg Neutrophils % (40.0-70.0) % Seg Neutrophils # (1.8-7.7) K/mm3 VBG pH (7.320-7.420) Sodium 160 H (137-145) mmol/L Chloride 124.1 H (98-107) mmol/L BUN 35 H (9-20) mg/dL Creatinine (0.8-1.5) mg/dL Glucose 122 H (75-100) mg/dL Hemoglobin A1c (4-6) % Magnesium (1.7-2.3) mg/dL AST 41 H (5-40) units/L Total Protein 8.5 H (6.3-8.2) g/dL Albumin 2.6 L (3.9-5) g/dL Free T4 (0.76-1.46) ng/dL
[2018-08-28] MEDS ORDERED: SULFADIAZINE FEEDTUBE SCH (12:00)
[2018-08-28] MEDS: PROAMATINE FEEDTUBE SCH ×2 (12:03→20:37)
[2018-08-28] MEDS: TRANSDERM-SCOP TD SCH (12:04)
[2018-08-28] MEDS: ASPIRIN FEEDTUBE SCH (12:10)
[2018-08-28] MEDS: PEPCID PO SCH ×2 (12:11→22:23)
[2018-08-28] MEDS: SODIUM CHLORIDE FLUSH SYRINGE 10 ML IV SCH ×2 (12:11→22:31)
[2018-08-28] MEDS: ULTRAM FEEDTUBE SCH ×3 (12:16→20:37)
[2018-08-28] MEDS: D5W 1,000 ML IV SCH (12:17)
--- NOTE | 2018-08-28 13:43 | Consultation ---
History of Present Illness - Reason for Consult Consult date: 08/28/18 hypernatremia - History of Present Illness The patient is a 58 Yo male with HIV / AIDS, Toxoplasmosis, CVA with residual weakness, status post tracheostomy reversal for previous respiratory failure, Syphilitic encephalitis, Traumatic brain injury, Cocaine & tobacco abuse and [place] resident who was sent to [facility] ER yesterday with tachycardia and hypoxia. Patient was not able to provide any history and most of the information was obtained from previous documentation. CXR showed bilateral pneumonia, right more than the left side. Labs were significant for Sodium 160, WBC 14 and creatinine 1.6. Nephrology was consulted for further evaluation. Past History Past Medical History: hyperlipidemia, stroke, other (HIV) Medications and Allergies Allergies Allergy/AdvReac Type Severity Reaction Status Date / Time No Known Allergies Allergy Verified 08/27/18 10:38 Home Medications Medication Instructions Recorded Confirmed Last Taken Type Acetylcysteine 20% Oral [Mucomyst 3 ml INTRATRACH Q6H 03/28/18 03/28/18 Unknown History Oral] Aspirin [Aspirin TAB] 325 mg FEEDTUBE DAILY 03/28/18 03/28/18 Unknown History Atorvastatin Calcium [Lipitor] 20 mg FEEDTUBE HS 03/28/18 03/28/18 Unknown History Bisacodyl [Bisac-Evac] 10 mg RC DAILY PRN 03/28/18 03/28/18 Unknown History Cholecalciferol (Vitamin D3) 2,000 unit FEEDTUBE QAM 03/28/18 03/28/18 Unknown History [Vitamin D3] Darunavir Ethanolate [Prezista] 8 ml FEEDTUBE QAM 03/28/18 03/28/18 Unknown History Docusate Sodium [Move It Along] 100 mg FEEDTUBE Q12H PRN 03/28/18 03/28/18 Unknown History Doxazosin Mesylate [Cardura] 1 mg FEEDTUBE HS 03/28/18 03/28/18 Unknown History Ergocalciferol [Vitamin D2] 1 cap FEEDTUBE QWEEK 03/28/18 03/28/18 Unknown History FLUoxetine HCL [PROzac] 40 mg FEEDTUBE QAM 03/28/18 03/28/18 Unknown History Gabapentin [Neurontin] 300 mg FEEDTUBE HS 03/28/18 03/28/18 Unknown History Haloperidol Decanoate [Haldol 50 mg IM Q4W 03/28/18 03/28/18 Unknown History Decanoate] Haloperidol Lactate [Haldol] 0.4 ml IM Q8H PRN 03/28/18 03/28/18 Unknown History Ipratropium/Albuterol Sulfate 1 ampul IH Q4HR 03/28/18 03/28/18 Unknown History [DUONEB *Not for PRN Use*] LORazepam [Ativan] 1 mg FEEDTUBE BID 03/28/18 03/28/18 Unknown History Leucovorin (Nf) 25 mg PO QAM 03/28/18 03/28/18 Unknown History Midodrine [Proamatine] 15 mg FEEDTUBE Q8H 03/28/18 03/28/18 Unknown History Polyethylene Glycol 3350 17 gm FEEDTUBE DAILY PRN 03/28/18 03/28/18 Unknown History [Smoothlax] Pyrimethamine [Daraprim] 25 mg FEEDTUBE QAM 03/28/18 03/28/18 Unknown History Quetiapine Fumarate [Seroquel] 100 mg FEEDTUBE Q8H 03/28/18 03/28/18 Unknown History Ritonavir [Norvir] 1.3 ml FEEDTUBE DAILY 03/28/18 03/28/18 Unknown History Scopolamine [Transderm-Scop] 1 each TD Q72H 03/28/18 03/28/18 Unknown History Sennosides [Senna Laxative] 17.2 mg FEEDTUBE HS 03/28/18 03/28/18 Unknown History Sodium Chloride 2 tab PO Q8H 03/28/18 03/28/18 Unknown History lamiVUDine [Lamivudine] 30 ml FEEDTUBE QAM 03/28/18 03/28/18 Unknown History raNITIdine HCl [Zantac 15mg/ml 10 ml FEEDTUBE Q12H 03/28/18 03/28/18 Unknown History Oral Liq] sulfADIAZINE 1,000 mg FEEDTUBE Q12H 03/28/18 03/28/18 Unknown History Sulfamethoxazole/Trimethoprim 285 mg PO BID 14 Days oral.liqd 03/31/18 Unknown Rx [Bactrim 200-40 mg/5 ml Oral Liq] traMADol [Ultram 50 MG tab] 50 mg FEEDTUBE TID #10 tablet 03/31/18 Unknown Rx Bacitracin Zinc Oint [Antibiotic 1 applicatio TP BID #1 tube 08/22/18 Unknown Rx Oint] Active Meds: Active Medications Acetaminophen (Tylenol) 650 mg PO Q4H PRN PRN Reason: Pain MILD(1-3)/Fever >100.5/DELGADO Last Admin: 08/27/18 22:03 Dose: 650 mg Documented by: Albuterol (Proventil) 2.5 mg IH Q4HRT PRN PRN Reason: Shortness Of Breath Albuterol/Ipratropium (Duoneb *Not For Prn Use*) 1 ampul IH QIDRT [facility] Last Admin: 08/28/18 11:27 Dose: 1 ampul Documented by: Lipase/Protease/Amylase (Pancrejoan Dr 10,500 Unit) 1 each FEEDTUBE PRN PRN PRN Reason: For Clogged Feeding Tube Aspirin (Aspirin) 325 mg FEEDTUBE DAILY [facility] Last Admin: 08/28/18 12:10 Dose: 325 mg Documented by: Atorvastatin Calcium (Lipitor) 20 mg FEEDTUBE HS [facility] Bacitracin (Antibiotic Oint) 1 applic TP BID [facility] Cholecalciferol (Vitamin D3) 2,000 unit FEEDTUBE DAILY [facility] Darunavir (Prezista) 800 mg PO QDAY [facility] Docusate Sodium (Colace) 100 mg FEEDTUBE BID [facility] Doxazosin Mesylate (Cardura) 1 mg FEEDTUBE HS [facility] Famotidine (Pepcid) 20 mg PO BID [facility] Last Admin: 08/28/18 12:11 Dose: 20 mg Documented by: Famotidine (Pepcid) 20 mg FEEDTUBE BID [facility] Fluoxetine HCl (Prozac) 40 mg PO QDAY [facility] Gabapentin (Neurontin) 300 mg FEEDTUBE HS [facility] Haloperidol Decanoate (Haldol Decanoate) 50 mg IM Q4W [facility] Haloperidol Lactate (Haldol) 2 mg IM Q8H PRN PRN Reason: Agitation Hydromorphone HCl (Dilaudid) 0.5 mg IV Q3H PRN PRN Reason: Pain , Severe (7-10) Piperacillin Sod/Tazobactam Sod (Zosyn/Ns 4.5gm/100ml) 4.5 gm in 100 mls @ 200 mls/hr IV Q8HR [facility]; Protocol Dextrose (D5w) 1,000 mls @ 100 mls/hr IV DIRECT [facility] Last Admin: 08/28/18 12:17 Dose: 100 mls/hr Documented by: Ibuprofen (Motrin) 600 mg PO Q6H PRN PRN Reason: Pain, Mild (1-3) Last Admin: 08/28/18 05:37 Dose: 600 mg Documented by: Lamivudine (Epivir) 300 mg FEEDTUBE QAM [facility] Levothyroxine Sodium (Synthroid) 50 mcg PO DAILY@0600 [facility] Midodrine (Proamatine) 15 mg FEEDTUBE Q8H [facility] Last Admin: 08/28/18 12:03 Dose: 15 mg Documented by: Miscellaneous Medication (Leucovorin) 25 mg PO QAM [facility] Miscellaneous Medication (Pyrimethamine [Daraprim]) 25 mg FEEDTUBE QAM [facility] Ondansetron HCl (Zofran) 4 mg IV Q8H PRN PRN Reason: Nausea And Vomiting Polyethylene Glycol (Miralax 3350) 17 gm FEEDTUBE DAILY PRN PRN Reason: Constipation Quetiapine Fumarate (Seroquel) 100 mg FEEDTUBE Q8H [facility] Last Admin: 08/28/18 12:04 Dose: 100 mg Documented by: Ritonavir (Norvir) 100 mg PO DAILY [facility] Scopolamine (Transderm-Scop) 1 each TD Q72H [facility] Last Admin: 08/28/18 12:04 Dose: 1 each Documented by: Simple Syrup (Simple Syrup) 15 ml FEEDTUBE PRN PRN PRN Reason: Hypoglycemia Simple Syrup (Simple Syrup) 30 ml FEEDTUBE PRN PRN PRN Reason: Hypoglycemia Sodium Bicarbonate (Sodium Bicarbonate) 325 mg FEEDTUBE PRN PRN PRN Reason: For Clogged Feeding Tube Sodium Chloride (Sodium Chloride Flush Syringe 10 Ml) 10 ml IV BID [facility] Last Admin: 08/28/18 12:11 Dose: 10 ml Documented by: Sodium Chloride (Sodium Chloride Flush Syringe 10 Ml) 10 ml IV PRN PRN PRN Reason: LINE FLUSH Sulfadiazine Sodium (Sulfadiazine) 1,000 mg FEEDTUBE Q12H [facility] Tramadol HCl (Ultram) 50 mg FEEDTUBE TID [facility] Last Admin: 08/28/18 12:16 Dose: 50 mg Documented by: Review of Systems ROS unobtainable: due to mental status Exam - Vital Signs Vital signs: Vital Signs Pulse Ox 96 08/27/18 10:25 - General Appearance General appearance: well-developed, appears stated age, cachectic, chronically ill, other (not in distress, bialteral wrist restrains) EENT: ATNC Neck: Present: trachea midline Respiratory: Clear to Ascultation Heart: regular, S1S2, no murmurs Gastrointestinal: Present: normoactive bowel sounds, other (PEG tube noted). Absent: tenderness, distended Neurologic: other (alert, non-verbal, not following any command) Musculoskeletal: Present: other (no edema) Results - Lab Results 08/28/18 05:02 08/28/18 05:02 Most recent lab results Calcium 8.8 mg/dL (8.4-10.2) 08/28/18 05:02 Magnesium 2.70 mg/dL (1.7-2.3) H 08/27/18 12:01 Assessment and Plan 1. Hypernatremia: Secondary to volume depletion. Started on IV D5W. Continue water flushes through the PEG tube. Monitor sodium level. 2. Acute kidney injury: Vasomotor / hemodynamic DAMON. Renal function is improving. UA is bland. Urine lytes. Continue IV fluids. Avoid nephrotoxic agents. Meds dosage based on GFR. 3. Bilateral pneumonia: HCAP vs aspiration. 4. HIV /AIDS: Followed by ID. 5. H/o CYTOGENETICIST toxoplasmosis. 6. Cachexia.
[2018-08-28] MEDS ORDERED: ZOSYN/NS 4.5GM/100ML 4.5 GM/100 ML VIAL IV SCH (14:00)
[2018-08-28] MEDS ORDERED: PEPCID FEEDTUBE SCH (14:00)
[2018-08-28] MEDS: VITAMIN D3 FEEDTUBE SCH (14:46)
--- NOTE | 2018-08-28 15:44 | Consultation ---
History of Present Illness - Reason for Consult Consult date: 08/28/18 HIV, pneumonia Requesting physician: NILSA NI - History of Present Illness The patient is a 58-year-old male with HIV AIDS, toxoplasmosis, CVA with residual weakness, status post tracheostomy reversal for previous respiratory failure, syphilitic encephalitis, traumatic brain injury, cocaine and tobacco abuse who is currently a intermediate resident at [place] was sent to the emergency room on 08/27/2018 with tachycardia and hypoxia. Workup in the emergency room revealed bilateral pneumonia but mainly on the right side. Infectious diseases was consulted. The patient is an extremely poor historian. Does not speak much. History was obtained by chart review, review of intermediate records and previous hospitalization records. Review of Systems: Limited due to mental status. Medications and Allergies Allergies Allergy/AdvReac Type Severity Reaction Status Date / Time No Known Allergies Allergy Verified 08/27/18 10:38 Home Medications Medication Instructions Recorded Confirmed Last Taken Type Acetylcysteine 20% Oral [Mucomyst 3 ml INTRATRACH Q6H 03/28/18 03/28/18 Unknown History Oral] Aspirin [Aspirin TAB] 325 mg FEEDTUBE DAILY 03/28/18 03/28/18 Unknown History Atorvastatin Calcium [Lipitor] 20 mg FEEDTUBE HS 03/28/18 03/28/18 Unknown History Bisacodyl [Bisac-Evac] 10 mg RC DAILY PRN 03/28/18 03/28/18 Unknown History Cholecalciferol (Vitamin D3) 2,000 unit FEEDTUBE QAM 03/28/18 03/28/18 Unknown History [Vitamin D3] Darunavir Ethanolate [Prezista] 8 ml FEEDTUBE QAM 03/28/18 03/28/18 Unknown History Docusate Sodium [Move It Along] 100 mg FEEDTUBE Q12H PRN 03/28/18 03/28/18 Unknown History Doxazosin Mesylate [Cardura] 1 mg FEEDTUBE HS 03/28/18 03/28/18 Unknown History Ergocalciferol [Vitamin D2] 1 cap FEEDTUBE QWEEK 03/28/18 03/28/18 Unknown History FLUoxetine HCL [PROzac] 40 mg FEEDTUBE QAM 03/28/18 03/28/18 Unknown History Gabapentin [Neurontin] 300 mg FEEDTUBE HS 03/28/18 03/28/18 Unknown History Haloperidol Decanoate [Haldol 50 mg IM Q4W 03/28/18 03/28/18 Unknown History Decanoate] Haloperidol Lactate [Haldol] 0.4 ml IM Q8H PRN 03/28/18 03/28/18 Unknown History Ipratropium/Albuterol Sulfate 1 ampul IH Q4HR 03/28/18 03/28/18 Unknown History [DUONEB *Not for PRN Use*] LORazepam [Ativan] 1 mg FEEDTUBE BID 03/28/18 03/28/18 Unknown History Leucovorin (Nf) 25 mg PO QAM 03/28/18 03/28/18 Unknown History Midodrine [Proamatine] 15 mg FEEDTUBE Q8H 03/28/18 03/28/18 Unknown History Polyethylene Glycol 3350 17 gm FEEDTUBE DAILY PRN 03/28/18 03/28/18 Unknown History [Smoothlax] Pyrimethamine [Daraprim] 25 mg FEEDTUBE QAM 03/28/18 03/28/18 Unknown History Quetiapine Fumarate [Seroquel] 100 mg FEEDTUBE Q8H 03/28/18 03/28/18 Unknown History Ritonavir [Norvir] 1.3 ml FEEDTUBE DAILY 03/28/18 03/28/18 Unknown History Scopolamine [Transderm-Scop] 1 each TD Q72H 03/28/18 03/28/18 Unknown History Sennosides [Senna Laxative] 17.2 mg FEEDTUBE HS 03/28/18 03/28/18 Unknown Hi story Sodium Chloride 2 tab PO Q8H 03/28/18 03/28/18 Unknown History lamiVUDine [Lamivudine] 30 ml FEEDTUBE QAM 03/28/18 03/28/18 Unknown History raNITIdine HCl [Zantac 15mg/ml 10 ml FEEDTUBE Q12H 03/28/18 03/28/18 Unknown History Oral Liq] sulfADIAZINE 1,000 mg FEEDTUBE Q12H 03/28/18 03/28/18 Unknown History Sulfamethoxazole/Trimethoprim 285 mg PO BID 14 Days oral.liqd 03/31/18 Unknown Rx [Bactrim 200-40 mg/5 ml Oral Liq] traMADol [Ultram 50 MG tab] 50 mg FEEDTUBE TID #10 tablet 03/31/18 Unknown Rx Bacitracin Zinc Oint [Antibiotic 1 applicatio TP BID #1 tube 08/22/18 Unknown Rx Oint] Active Meds: Active Medications Acetaminophen (Tylenol) 650 mg PO Q4H PRN PRN Reason: Pain MILD(1-3)/Fever >100.5/DELGADO Last Admin: 08/27/18 22:03 Dose: 650 mg Documented by: Albuterol (Proventil) 2.5 mg IH Q4HRT PRN PRN Reason: Shortness Of Breath Albuterol/Ipratropium (Duoneb *Not For Prn Use*) 1 ampul IH QIDRT [facility] Last Admin: 08/28/18 11:27 Dose: 1 ampul Documented by: Lipase/Protease/Amylase (Tomás Lema 10,500 Unit) 1 each FEEDTUBE PRN PRN PRN Reason: For Clogged Feeding Tube Aspirin (Aspirin) 325 mg FEEDTUBE DAILY [facility] Last Admin: 08/28/18 12:10 Dose: 325 mg Documented by: Atorvastatin Calcium (Lipitor) 20 mg FEEDTUBE HS [facility] Bacitracin (Antibiotic Oint) 1 applic TP BID [facility] Cholecalciferol (Vitamin D3) 2,000 unit FEEDTUBE DAILY [facility] Last Admin: 08/28/18 14:46 Dose: 2,000 unit Documented by: Darunavir (Prezista) 800 mg PO QDAY [facility] Docusate Sodium (Colace) 100 mg FEEDTUBE BID [facility] Doxazosin Mesylate (Cardura) 1 mg FEEDTUBE HS [facility] Famotidine (Pepcid) 20 mg PO BID [facility] Last Admin: 08/28/18 12:11 Dose: 20 mg Documented by: Famotidine (Pepcid) 20 mg FEEDTUBE BID [facility] Fluoxetine HCl (Prozac) 40 mg PO QDAY [facility] Gabapentin (Neurontin) 300 mg FEEDTUBE HS [facility] Haloperidol Decanoate (Haldol Decanoate) 50 mg IM Q4W [facility] Haloperidol Lactate (Haldol) 2 mg IM Q8H PRN PRN Reason: Agitation Hydromorphone HCl (Dilaudid) 0.5 mg IV Q3H PRN PRN Reason: Pain , Severe (7-10) Dextrose (D5w) 1,000 mls @ 100 mls/hr IV DIRECT [facility] Last Admin: 08/28/18 12:17 Dose: 100 mls/hr Documented by: Cefepime HCl (Maxipime/Ns 1 Gm/100 Ml) 1 gm in 100 mls @ 200 mls/hr IV Q8HR [facility]; Protocol Metronidazole (Flagyl 500 Mg/100 Ml) 500 mg in 100 mls @ 100 mls/hr IV Q8HR [facility]; Protocol Ibuprofen (Motrin) 600 mg PO Q6H PRN PRN Reason: Pain, Mild (1-3) Last Admin: 08/28/18 05:37 Dose: 600 mg Documented by: Lamivudine (Epivir) 300 mg FEEDTUBE QAM [facility] Levothyroxine Sodium (Synthroid) 50 mcg PO DAILY@0600 [facility] Midodrine (Proamatine) 15 mg FEEDTUBE Q8H [facility] Last Admin: 08/28/18 12:03 Dose: 15 mg Documented by: Ondansetron HCl (Zofran) 4 mg IV Q8H PRN PRN Reason: Nausea And Vomiting Polyethylene Glycol (Miralax 3350) 17 gm FEEDTUBE DAILY PRN PRN Reason: Constipation Quetiapine Fumarate (Seroquel) 100 mg FEEDTUBE Q8H [facility] Last Admin: 08/28/18 12:04 Dose: 100 mg Documented by: Ritonavir (Norvir) 100 mg PO DAILY [facility] Scopolamine (Transderm-Scop) 1 each TD Q72H [facility] Last Admin: 08/28/18 12:04 Dose: 1 each Documented by: Simple Syrup (Simple Syrup) 15 ml FEEDTUBE PRN PRN PRN Reason: Hypoglycemia Simple Syrup (Simple Syrup) 30 ml FEEDTUBE PRN PRN PRN Reason: Hypoglycemia Sodium Bicarbonate (Sodium Bicarbonate) 325 mg FEEDTUBE PRN PRN PRN Reason: For Clogged Feeding Tube Sodium Chloride (Sodium Chloride Flush Syringe 10 Ml) 10 ml IV BID [facility] Last Admin: 08/28/18 12:11 Dose: 10 ml Documented by: Sodium Chloride (Sodium Chloride Flush Syringe 10 Ml) 10 ml IV PRN PRN PRN Reason: LINE FLUSH Tenofovir Disoproxil Fumarate (Viread) 300 mg PO QDAY [facility] Tramadol HCl (Ultram) 50 mg FEEDTUBE TID [facility] Last Admin: 08/28/18 12:16 Dose: 50 mg Documented by: Physical Examination - Physical Exam Narrative exam: Physical Exam: Constitutional: Alert, cooperative. No acute distress. Cachexia + Head, Ears, Nose: Normocephalic, atraumatic. External ears, nose normal Eyes: Conjunctivae/corneas clear. No icterus. No ptosis. Neck: Supple, no meningeal signs. Old trach scar Oral: poor oral hygiene, no thrush Cardiovascular: S1, S2 normal. Respiratory: few rhonchi bilaterally GI: Soft, non-tender; bowel sounds normal. No peritoneal signs Musculoskeletal: No pedal edema, no cyanosis. Skin: No rash or abscess Hem/Lymphatic: No palpable cervical or supraclavicular nodes. No lymphangitis Psych: no agitation Neurological: Awake, alert - Constitutional Vitals: Vital Signs Temp Pulse Resp BP Pulse Ox 97.9 F 99 H 16 88/55 100 08/28/18 12:02 08/28/18 12:02 08/28/18 12:02 08/28/18 12:02 08/28/18 12:02 Temperature -Last 24 Hours Temperature 97.9 F Temperature 94.4 F Temperature 98.4 F Temperature 101.4 F Temperature 97.4 F Results - Labs CBC & Chem 7: 08/28/18 05:02 08/28/18 05:02 Labs: Abnormal lab results 08/27/18 08/28/18 08/28/18 Range/Units 12:01 05:02 05:02 WBC 14.1 H (4.5-11.0) K/mm3 Hgb 11.3 L (11.8-15.2) gm/dl Hct 35.4 L (35.5-45.6) % MCH 27 L (28-32) pg RDW 19.7 H (13.2-15.2) % Plt Count 110 L (140-440) K/mm3 Lymph % (Auto) 12.6 L (13.4-35.0) % [place] % (Auto) 11.3 H (0.0-7.3) % [place] # 1.6 H (0.0-0.8) K/mm3 Seg Neutrophils % 75.9 H (40.0-70.0) % Seg Neutrophils # 10.7 H (1.8-7.7) K/mm3 Sodium 160 H (137-145) mmol/L Chloride 124.1 H (98-107) mmol/L BUN 35 H (9-20) mg/dL Glucose 122 H (75-100) mg/dL Hemoglobin A1c 6.3 H (4-6) % AST 41 H (5-40) units/L Total Protein 8.5 H (6.3-8.2) g/dL Albumin 2.6 L (3.9-5) g/dL - Imaging and Cardiology Chest x-ray: report reviewed, image reviewed (bilateral PNA, R>L) Assessment and Plan Cultures: 08/27/2018 blood culture: In progress 08/27/2018 MRSA nasal culture: In process A/P: 58-year-old male with HIV AIDS, toxoplasmosis, CVA with residual weakness, status post tracheostomy reversal for previous respiratory failure, syphilitic encephalitis, traumatic brain injury, cocaine and tobacco abuse who is currently a intermediate resident at [place] was sent to the emergency room on with tachycardia and hypoxia. Admitted with: 1) Bilateral pneumonia, R>L causing acute respiratory failure: Etiology is probably HCAP vs aspiration. PCP is quite unlikely given that patient is on antiretroviral therapy with virologic control and good CD4 count in the past, and with him at the [place], he seems to be compliant with his HIV meds. Hence, will treat with cefepime, Flagyl and vancomycin. 2) HIV/AIDS: Chart reviewed. Continue antiretroviral therapy: Tenofovir, lamivudine, ritonavir boosted darunavir. Monitor for drug interactions. Last viral load in March 2018 was undetectable and CD4 count was more than 700. 3) TALLOW PUMPER toxoplasmosis: Likely completed treatment. Review of his intermediate records and MAR does not show him on active toxoplasma treatment, which is appropriate with his CD4 count being more than 700 back in March 2018. 4) Hypernatremia and acute metabolic encephalopathy. 5) Cachexia, malnutrition: guarded prognosis. Recs: treat with IV cefepime, Flagyl and vancomycin speech/swallow eval due to concern for possible aspiration PCP is unlikely given good CD4 count Continue antiretroviral therapy: Tenofovir, lamivudine, ritonavir boosted darunavir Review of his intermediate records and MAR does not show him on active toxoplasm a treatment, which is appropriate with his CD4 count being more than 700 back in March 2018 D/W MD [facility] C: [phone] O: [phone] F: [phone]
[2018-08-28] MEDS ORDERED: VANCOMYCIN PHARMACY TO DOSE IV SCH (16:00)
[2018-08-28] MEDS: EPIVIR FEEDTUBE SCH (16:14)
[2018-08-28] MEDS: PREZISTA PO SCH (16:15)
[2018-08-28] MEDS: ANTIBIOTIC OINT TP SCH ×2 (16:15→22:31)
[2018-08-28] MEDS: PROzac PO SCH (16:16)
[2018-08-28] MEDS: COLACE FEEDTUBE SCH ×2 (16:25→22:23)
[2018-08-28] MEDS: FLAGYL 500 MG/100 ML 500 MG/100 ML BAG IV SCH ×2 (16:25→22:24)
[2018-08-28] MEDS ORDERED: VANCOMYCIN/NS 1 GM/250 ML 1 GM/250 ML BAG IV ONE (17:00)
[2018-08-28] MEDS: VIREAD PO SCH (18:34)
[2018-08-28] MEDS: NORVIR PO SCH (19:33)
[2018-08-28] MEDS ORDERED: LOVENOX SUB-Q SCH (22:00)
[2018-08-28] MEDS: MAXIPIME/NS 1 GM/100 ML 1 GM/100 ML BAG IV SCH (22:21)
[2018-08-28] MEDS: NEURONTIN FEEDTUBE SCH (22:24)
[2018-08-28] MEDS: CARDURA FEEDTUBE SCH (22:31)
[2018-08-29] MEDS: D5W 1,000 ML IV SCH ×2 (02:51→23:10)
[2018-08-29] MEDS: SYNTHROID PO SCH (05:03)
[2018-08-29] MEDS: FLAGYL 500 MG/100 ML 500 MG/100 ML BAG IV SCH ×3 (05:03→21:07)
[2018-08-29] MEDS: PROAMATINE FEEDTUBE SCH ×3 (05:03→21:06)
[2018-08-29] MEDS: MAXIPIME/NS 1 GM/100 ML 1 GM/100 ML BAG IV SCH ×3 (05:04→21:07)
[2018-08-29 06:47] LABS: Basophils % (Auto) 0.2 % (0.0-1.8); Eosinophils # (Auto) 0.1 K/mm3 (0.0-0.4); Hematocrit 30.1 % (35.5-45.6); Hemoglobin 9.8 gm/dl (11.8-15.2); Lymphocytes # (Auto) 1.4 K/mm3 (1.2-5.4); Lymphocytes % (Auto) 14.5 % (13.4-35.0); Mean Corpuscular HGB Conc 33 % (32-34); Mean Corpuscular Volume 84 fl (84-94); Monocytes # (Auto) 1.1 K/mm3 (0.0-0.8); Monocytes % (Auto) 11.6 % (0.0-7.3); Red Blood Count 3.57 M/mm3 (3.65-5.03); Red Cell Distribution Width 19.7 % (13.2-15.2)
[2018-08-29 06:59] LABS: Platelet Count 81 K/mm3 (140-440)
[2018-08-29 07:20] LABS: BUN/Creatinine Ratio 29; Blood Urea Nitrogen 20 mg/dL (9-20); Calcium 8.1 mg/dL (8.4-10.2); Hemolysis Index 2
[2018-08-29] MEDS ORDERED: VANCOMYCIN 750 MG in NACL 0.9% 250ML 250 ML IV SCH (08:00)
[2018-08-29] MEDS: DUONEB *Not for PRN Use IH SCH ×4 (08:07→20:14)
[2018-08-29] MEDS: ULTRAM FEEDTUBE SCH ×3 (08:18→21:06)
--- NOTE | 2018-08-29 08:35 | Progress Note ---
Assessment and Plan 1. Hypernatremia: Secondary to volume depletion. Sodium level is better. Continue IV D5W. Continue water flushes through the PEG tube. Monitor sodium level. 2. Acute kidney injury: Vasomotor / hemodynamic DAMON. Renal function is improving. UA is bland. Urine lytes. Continue IV fluids. Avoid nephrotoxic agents. Meds dosage based on GFR. 3. FEN: Replete K and Phos. 4. Bilateral pneumonia: HCAP vs aspiration. 5. HIV /AIDS: Followed by ID. 6. H/o CARPENTER toxoplasmosis. 7. Cachexia. Subjective Date of service: 08/29/18 Interval history: Patient was seen and examined at the bedside. Objective - Vital Signs Vital signs: Vital Signs - 12hr 08/28/18 08/28/18 08/29/18 22:31 23:13 05:18 Temperature 97.8 F 97.5 F L Pulse Rate 108 H 67 114 H Pulse Rate [ Anterior Bilateral Throughout] Respiratory 16 16 Rate Respiratory Rate [Anterior Bilateral Throughout] Blood Pressure 99/61 91/47 105/44 O2 Sat by Pulse 97 96 Oximetry 08/29/18 08/29/18 08/29/18 08:05 08:07 08:18 Temperature Pulse Rate Pulse Rate [ 103 H Anterior Bilateral Throughout] Respiratory 20 Rate Respiratory 16 Rate [Anterior Bilateral Throughout] Blood Pressure O2 Sat by Pulse 99 Oximetry 08/29/18 08:22 Temperature Pulse Rate Pulse Rate [ 104 H Anterior Bilateral Throughout] Respiratory Rate Respiratory 18 Rate [Anterior Bilateral Throughout] Blood Pressure O2 Sat by Pulse Oximetry - General Appearance General appearance: well-developed, appears stated age, cachectic, other (not in distress, on wrist restrains) EENT: ATNC Neck: other (Trachea midline) Respiratory: Present: Clear to Ascultation Cardiology: regular, S1S2, no murmurs Gastrointestinal: normoactive bowel sounds, other (PEG tube noted) Integumentary: warm and dry Neurologic: other (opens eyes, non-verbal, not following any command) Musculoskeletal: other (no edema) - Lab 08/29/18 04:55 08/29/18 04:55 Most recent lab results Calcium 8.1 mg/dL (8.4-10.2) L 08/29/18 04:55 Phosphorus 1.60 mg/dL (2.5-4.5) L 08/29/18 04:55 Magnesium 2.70 mg/dL (1.7-2.3) H 08/27/18 12:01 Medications & Allergies - Medications Allergies/Adverse Reactions: Allergies No Known Allergies Allergy (Verified 08/27/18 10:38) Home Medications: Home Medications Medication Instructions Recorded Confirmed Last Taken Type Acetylcysteine 20% Oral [Mucomyst 3 ml INTRATRACH Q6H 03/28/18 03/28/18 Unknown History Oral] Aspirin [Aspirin TAB] 325 mg FEEDTUBE DAILY 03/28/18 03/28/18 Unknown History Atorvastatin Calcium [Lipitor] 20 mg FEEDTUBE HS 03/28/18 03/28/18 Unknown History Bisacodyl [Bisac-Evac] 10 mg RC DAILY PRN 03/28/18 03/28/18 Unknown History Cholecalciferol (Vitamin D3) 2,000 unit FEEDTUBE QAM 03/28/18 03/28/18 Unknown History [Vitamin D3] Darunavir Ethanolate [Prezista] 8 ml FEEDTUBE QAM 03/28/18 03/28/18 Unknown History Docusate Sodium [Move It Along] 100 mg FEEDTUBE Q12H PRN 03/28/18 03/28/18 Unknown History Doxazosin Mesylate [Cardura] 1 mg FEEDTUBE HS 03/28/18 03/28/18 Unknown History Ergocalciferol [Vitamin D2] 1 cap FEEDTUBE QWEEK 03/28/18 03/28/18 Unknown History FLUoxetine HCL [PROzac] 40 mg FEEDTUBE QAM 03/28/18 03/28/18 Unknown History Gabapentin [Neurontin] 300 mg FEEDTUBE HS 03/28/18 03/28/18 Unknown History Haloperidol Decanoate [Haldol 50 mg IM Q4W 03/28/18 03/28/18 Unknown History Decanoate] Haloperidol Lactate [Haldol] 0.4 ml IM Q8H PRN 03/28/18 03/28/18 Unknown History Ipratropium/Albuterol Sulfate 1 ampul IH Q4HR 03/28/18 03/28/18 Unknown History [DUONEB *Not for PRN Use*] LORazepam [Ativan] 1 mg FEEDTUBE BID 03/28/18 03/28/18 Unknown History Leucovorin (Nf) 25 mg PO QAM 03/28/18 03/28/18 Unknown History Midodrine [Proamatine] 15 mg FEEDTUBE Q8H 03/28/18 03/28/18 Unknown History Polyethylene Glycol 3350 17 gm FEEDTUBE DAILY PRN 03/28/18 03/28/18 Unknown History [Smoothlax] Pyrimethamine [Daraprim] 25 mg FEEDTUBE QAM 03/28/18 03/28/18 Unknown History Quetiapine Fumarate [Seroquel] 100 mg FEEDTUBE Q8H 03/28/18 03/28/18 Unknown History Ritonavir [Norvir] 1.3 ml FEEDTUBE DAILY 03/28/18 03/28/18 Unknown History Scopolamine [Transderm-Scop] 1 each TD Q72H 03/28/18 03/28/18 Unknown History Sennosides [Senna Laxative] 17.2 mg FEEDTUBE HS 03/28/18 03/28/18 Unknown History Sodium Chloride 2 tab PO Q8H 03/28/18 03/28/18 Unknown History lamiVUDine [Lamivudine] 30 ml FEEDTUBE QAM 03/28/18 03/28/18 Unknown History raNITIdine HCl [Zantac 15mg/ml 10 ml FEEDTUBE Q12H 03/28/18 03/28/18 Unknown History Oral Liq] sulfADIAZINE 1,000 mg FEEDTUBE Q12H 03/28/18 03/28/18 Unknown History Sulfamethoxazole/Trimethoprim 285 mg PO BID 14 Days oral.liqd 03/31/18 Unknown Rx [Bactrim 200-40 mg/5 ml Oral Liq] traMADol [Ultram 50 MG tab] 50 mg FEEDTUBE TID #10 tablet 03/31/18 Unknown Rx Bacitracin Zinc Oint [Antibiotic 1 applicatio TP BID #1 tube 08/22/18 Unknown Rx Oint] Active Medications: Generic Name Dose Route Start Last Admin Trade Name Freq PRN Reason Stop Dose Admin Acetaminophen 650 mg 08/27/18 17:35 08/27/18 22:03 Tylenol PO 650 mg Q4H PRN Administration Pain MILD(1-3)/Fever >100.5/DELGADO Albuterol 2.5 mg 08/27/18 17:39 Proventil IH Q4HRT PRN Shortness Of Breath Albuterol/Ipratropium 1 ampul 08/27/18 20:00 08/29/18 08:07 Duoneb *Not For Prn Use* IH 1 ampul QIDRT BLOSSOM Administration Lipase/Protease/Amylase 1 each 08/27/18 18:41 Pancreazbette Lema 10,500 Unit FEEDTUBE PRN PRN For Clogged Feeding Tube Aspirin 325 mg 08/28/18 11:00 08/28/18 12:10 Aspirin FEEDTUBE 325 mg DAILY BLOSSOM Administration Atorvastatin Calcium 20 mg 08/28/18 22:00 08/28/18 22:23 Lipitor FEEDTUBE 20 mg HS BLOSSOM Administration Bacitracin 1 applic 08/28/18 10:00 08/28/18 22:31 Antibiotic Oint TP 1 applic BID BLOSSOM Administration Cholecalciferol 2,000 unit 08/28/18 14:00 08/28/18 14:46 Vitamin D3 FEEDTUBE 2,000 unit DAILY BLOSSOM Administration Darunavir 800 mg 08/28/18 14:00 08/28/18 16:15 Prezista PO 800 mg QDAY BLOSSOM Administration Docusate Sodium 100 mg 08/28/18 14:00 08/28/18 22:23 Colace FEEDTUBE 100 mg BID BLOSSOM Administration Doxazosin Mesylate 1 mg 08/28/18 22:00 08/28/18 22:31 Cardura FEEDTUBE Not Given HS BLOSSOM Famotidine 20 mg 08/27/18 22:00 08/28/18 22:23 Pepcid PO 20 mg BID BLOSSOM Administration Fluoxetine HCl 40 mg 08/28/18 14:00 08/28/18 16:16 Prozac PO 40 mg QDAY BLOSSOM Administration Gabapentin 300 mg 08/28/18 22:00 08/28/18 22:24 Neurontin FEEDTUBE 300 mg HS BLOSSOM Administration Haloperidol Decanoate 50 mg 08/28/18 08:00 Haldol Decanoate IM Q4W BLOSSOM Haloperidol Lactate 2 mg 08/28/18 07:30 Haldol IM Q8H PRN Agitation Hydromorphone HCl 0.5 mg 08/27/18 17:36 Dilaudid IV Q3H PRN Pain , Severe (7-10) Dextrose 1,000 mls @ 100 mls/hr 08/28/18 12:00 08/29/18 02:51 D5w IV 100 mls/hr DIRECT BLOSSOM Administration Cefepime HCl 1 gm in 100 mls @ 200 mls/hr 08/28/18 22:00 08/29/18 05:04 Maxipime/Ns 1 Gm/100 Ml IV 200 mls/hr Q8HR BLOSSOM Administration Protocol Metronidazole 500 mg in 100 mls @ 100 mls/hr 08/28/18 16:00 08/29/18 05:03 Flagyl 500 Mg/100 Ml IV 100 mls/hr Q8HR BLOSSOM Administration Protocol Vancomycin HCl 750 mg/ Sodium 265 mls @ 166.667 mls/hr 08/29/18 08:00 08/29/18 08:18 Chloride IV 166.667 mls/hr Q12H BLOSSOM Administration Ibuprofen 600 mg 08/27/18 17:36 08/28/18 05:37 Motrin PO 600 mg Q6H PRN Administration Pain, Mild (1-3) Lamivudine 300 mg 08/28/18 12:00 08/28/18 16:14 Epivir FEEDTUBE 300 mg QAM BLOSSOM Administration Levothyroxine Sodium 50 mcg 08/29/18 06:00 08/29/18 05:03 Synthroid PO 50 mcg DAILY@0600 BLOSSOM Administration Midodrine 15 mg 08/28/18 12:00 08/29/18 05:03 Proamatine FEEDTUBE 15 mg Q8H BLOSSOM Administration Ondansetron HCl 4 mg 08/27/18 17:35 Zofran IV Q8H PRN Nausea And Vomiting Polyethylene Glycol 17 gm 08/28/18 07:30 Miralax 3350 FEEDTUBE DAILY PRN Constipation Quetiapine Fumarate 100 mg 08/28/18 12:00 08/29/18 05:03 Seroquel FEEDTUBE 100 mg Q8H BLOSSOM Administration Ritonavir 100 mg 08/28/18 14:00 08/28/18 19:33 Norvir PO 100 mg DAILY BLOSSOM Administration Scopolamine 1 each 08/28/18 12:00 08/28/18 12:04 Transderm-Scop TD 1 each Q72H BLOSSOM Administration Simple Syrup 15 ml 08/27/18 18:41 Simple Syrup FEEDTUBE PRN PRN Hypoglycemia Simple Syrup 30 ml 08/27/18 18:41 Simple Syrup FEEDTUBE PRN PRN Hypoglycemia Sodium Bicarbonate 325 mg 08/27/18 18:41 Sodium Bicarbonate FEEDTUBE PRN PRN For Clogged Feeding Tube Sodium Chloride 10 ml 08/27/18 22:00 08/28/18 22:31 Sodium Chloride Flush Syringe 10 Ml IV 10 ml BID BLOSSOM Administration Sodium Chloride 10 ml 08/27/18 17:35 Sodium Chloride Flush Syringe 10 Ml IV PRN PRN LINE FLUSH Sodium Phosphate 250 mg 08/29/18 10:00 K-Phos Neutral PO BID BLSOSOM Tenofovir Disoproxil Fumarate 300 mg 08/28/18 16:30 08/28/18 18:34 Viread PO 300 mg QDAY BLOSSOM Administration Tramadol HCl 50 mg 08/28/18 12:00 08/29/18 08:18 Ultram FEEDTUBE 50 mg TID BLOSSOM Administration
[2018-08-29] MEDS: PROzac PO SCH (09:15)
[2018-08-29] MEDS: PEPCID PO SCH ×2 (09:16→22:40)
[2018-08-29] MEDS: VITAMIN D3 FEEDTUBE SCH (09:16)
[2018-08-29] MEDS: NORVIR PO SCH (09:17)
[2018-08-29] MEDS: VIREAD PO SCH (09:17)
[2018-08-29] MEDS: PREZISTA PO SCH (09:18)
[2018-08-29] MEDS: EPIVIR FEEDTUBE SCH (09:18)
[2018-08-29] MEDS: ASPIRIN FEEDTUBE SCH (09:19)
[2018-08-29] MEDS: ANTIBIOTIC OINT TP SCH ×2 (09:20→22:46)
[2018-08-29] MEDS: SODIUM CHLORIDE FLUSH SYRINGE 10 ML IV SCH ×2 (09:21→22:41)
[2018-08-29] MEDS: COLACE FEEDTUBE SCH ×2 (09:21→21:07)
--- NOTE | 2018-08-29 09:57 | Progress Note ---
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 Admitted with: 1) Bilateral pneumonia, R>L causing acute respiratory failure: Etiology is p robably HCAP vs aspiration. PCP is quite unlikely given that patient is on antiretroviral therapy with virologic control and good CD4 count in the past, and with him at the PA, he seems to be compliant with his HIV meds. Continue Cefepime and Flagyl, discontniue Vancomycin. 2) HIV/AIDS: Chart reviewed. Continue antiretroviral therapy: Tenofovir, lamivudine, ritonavir boosted darunavir. Monitor for drug interactions. Last viral load in March 2018 was undetectable and CD4 count was more than 700. 3) ME[employer] DES[employer] toxoplasmosis: Likely completed treatment. Review of his correction records and MAR does not show him on active toxoplasma treatment, which is appropriate with his CD4 count being more than 700 back in March 2018. 4) Hypernatremia and acute metabolic encephalopathy. 5) Cachexia, malnutrition: guarded prognosis. Recs: Continue IV cefepime 1 gm IV every 8 hours, D2 Continue Flagyl 500mg IV every 8 hours, D2 Discontinue Vancomycin Consider speech/swallow eval due to concern for possible aspiration PCP is unlikely given good CD4 count Continue antiretroviral therapy: Tenofovir, lamivudine, ritonavir boosted darunavir [facility] [employer] [facility] M: [phone] O:[phone] Subjective Date of service: 08/29/18 Interval history: Patient seen and examined. Asleep, unable to arouse, opens eyes briefly. No acute distress observed. Nurse at bedside. Objective - Exam Narrative Exam: Constitutional: Asleep, difficult to arouse. No acute distress observed. Cachexia + Head, Ears, Nose: Normocephalic, atraumatic. External ears, nose normal Eyes: Conjunctivae/corneas clear. No icterus. No ptosis. Neck: Supple, no meningeal signs. Old trach scar Oral: poor oral hygiene, no thrush Cardiovascular: S1, S2 normal. Respiratory: + rhonchi bilaterally GI: Soft, non-tender; bowel sounds normal. No peritoneal signs Musculoskeletal: No pedal edema, no cyanosis. Skin: No rash or abscess Hem/Lymphatic: No palpable cervical or supraclavicular nodes. No lymphangitis Psych: clam, lethargic Neurological: Asleep, difficult to arouse - Constitutional Vitals: Vital Signs Temp Pulse Resp BP Pulse Ox 97.5 F L 104 H 18 105/44 99 08/29/18 05:18 08/29/18 08:22 08/29/18 08:22 08/29/18 05:18 08/29/18 08:05 Temperature -Last 24 Hours Temperature 97.5 F Temperature 97.8 F Temperature 97.9 F Temperature 97.9 F - Labs CBC & Chem 7: 08/29/18 04:55 08/29/18 04:55 Labs: Abnormal lab results 08/29/18 08/29/18 Range/Units 04:55 04:55 RBC 3.57 L (3.65-5.03) M/mm3 Hgb 9.8 L (11.8-15.2) gm/dl Hct 30.1 L (35.5-45.6) % MCH 27 L (28-32) pg RDW 19.7 H (13.2-15.2) % Plt Count 81 L (140-440) K/mm3 [place] % (Auto) 11.6 H (0.0-7.3) % [place] # 1.1 H (0.0-0.8) K/mm3 Seg Neutrophils % 72.7 H (40.0-70.0) % Sodium 151 H D (137-145) mmol/L Chloride 117.1 H (98-107) mmol/L Creatinine 0.7 L (0.8-1.5) mg/dL Calcium 8.1 L (8.4-10.2) mg/dL Phosphorus 1.60 L (2.5-4.5) mg/dL
[2018-08-29] MEDS ORDERED: KPHOS 45 MMOL in NACL 0.9% 500 ML 500 ML IV ONE (12:00)
[2018-08-29] MEDS: K-PHOS NEUTRAL PO SCH ×2 (12:29→22:39)
--- NOTE | 2018-08-29 16:46 | Progress Note ---
Assessment and Plan /Acute Respiratory failure with hypoxia Sec to biateral Pneumonia, High flow O2 for now, Bipap if necessary cont abx, frequent nebs /Bilateral pneumonia Will treat as CAP Initially placed on IV Zosyn and Vancomycin PCP in differential diagnosis Consulted ID and recommended to Continue Cefepime and Flagyl, discontniue Vancomycin. / COPD (chronic obstructive pulmonary disease) with exacerbation, POA Cont duonebs / HIV (human immunodeficiency virus infection) Last CD 4 count is in Mid 700's Cont antiretrovirals /hypernatremia, Na 60 today, due to dehydration, cont hypotonic fluid /DAMON, vasomotor nephropathy, resolved with iv fluid / CVA, old, dysarthria Supportive care / Malnutrition, severe Dietitian consult / HLD (hyperlipidemia) Cont statins / GERD (gastroesophageal reflux disease) Cont PPI's / Vitamin D deficiency Cont Vit D / Peripheral neuropathy Cont Gabapentin / Bipolar 1 disorder Cont seroquel / DVT prophylaxis Lovenox and GI prophylaxis Physical Exam: Constitutional: No acute distress. Cachexia + Head, Ears, Nose: Normocephalic, atraumatic. External ears, nose normal Eyes: Conjunctivae/corneas clear. No icterus. No ptosis. Neck: Supple, no meningeal signs. Old trach scar Oral: poor oral hygiene, no thrush Cardiovascular: S1, S2 normal. Respiratory: few rhonchi bilaterally GI: Soft, non-tender; bowel sounds normal. No peritoneal signs Musculoskeletal: No pedal edema, no cyanosis. Skin: No rash or abscess Psych: no agitation Neurological: Awake, but not oriented to time place or person Subjective Date of service: 08/29/18 Interval history: Pt seen and examined appears lethargic, does not follow commend, no family at bedside Discussed with RN at the bedside Objective - Constitutional Vitals: Vital Signs - 12hr 08/29/18 08/29/18 08/29/18 05:18 08:05 08:07 Temperature 97.5 F L Pulse Rate 114 H Pulse Rate [ 103 H Anterior Bilateral Throughout] Respiratory 16 Rate Respiratory 16 Rate [Anterior Bilateral Throughout] Blood Pressure 105/44 O2 Sat by Pulse 96 99 Oximetry 08/29/18 08/29/18 08/29/18 08:18 08:22 11:57 Temperature 98.6 F Pulse Rate 109 H Pulse Rate [ 104 H Anterior Bilateral Throughout] Respiratory 20 18 Rate Respiratory 18 Rate [Anterior Bilateral Throughout] Blood Pressure 102/62 O2 Sat by Pulse 98 Oximetry 08/29/18 08/29/18 08/29/18 12:28 12:43 13:27 Temperature Pulse Rate Pulse Rate [ 95 H 107 H Anterior Bilateral Throughout] Respiratory 20 Rate Respiratory 20 20 Rate [Anterior Bilateral Throughout] Blood Pressure O2 Sat by Pulse Oximetry - Labs CBC & Chem 7: 08/30/18 05:42 08/30/18 05:42 Labs: Abnormal lab results 08/29/18 08/29/18 Range/Units 04:55 04:55 RBC 3.57 L (3.65-5.03) M/mm3 Hgb 9.8 L (11.8-15.2) gm/dl Hct 30.1 L (35.5-45.6) % MCH 27 L (28-32) pg RDW 19.7 H (13.2-15.2) % Plt Count 81 L (140-440) K/mm3 [place] % (Auto) 11.6 H (0.0-7.3) % [place] # 1.1 H (0.0-0.8) K/mm3 Seg Neutrophils % 72.7 H (40.0-70.0) % Sodium 151 H D (137-145) mmol/L Chloride 117.1 H (98-107) mmol/L Creatinine 0.7 L (0.8-1.5) mg/dL Calcium 8.1 L (8.4-10.2) mg/dL Phosphorus 1.60 L (2.5-4.5) mg/dL
[2018-08-29] MEDS: CARDURA FEEDTUBE SCH (22:38)
[2018-08-29] MEDS: NEURONTIN FEEDTUBE SCH (22:39)
[2018-08-30] MEDS: PROAMATINE FEEDTUBE SCH ×3 (04:56→22:53)
[2018-08-30] MEDS: SYNTHROID PO SCH (05:38)
[2018-08-30] MEDS: FLAGYL 500 MG/100 ML 500 MG/100 ML BAG IV SCH ×3 (05:38→22:54)
[2018-08-30] MEDS: MAXIPIME/NS 1 GM/100 ML 1 GM/100 ML BAG IV SCH ×3 (05:38→22:43)
[2018-08-30 06:03] LABS: Basophils % (Auto) 0.3 % (0.0-1.8); Eosinophils # (Auto) 0.3 K/mm3 (0.0-0.4); Eosinophils % (Auto) 3.9 % (0.0-4.3); Hematocrit 27.8 % (35.5-45.6); Hemoglobin 9.1 gm/dl (11.8-15.2); Lymphocytes # (Auto) 1.4 K/mm3 (1.2-5.4); Lymphocytes % (Auto) 19.8 % (13.4-35.0); Mean Corpuscular HGB Conc 33 % (32-34); Mean Corpuscular Volume 83 fl (84-94); Monocytes % (Auto) 13.1 % (0.0-7.3); Platelet Count 97 K/mm3 (140-440); Red Blood Count 3.35 M/mm3 (3.65-5.03); Red Cell Distribution Width 19.7 % (13.2-15.2)
[2018-08-30 06:21] LABS: BUN/Creatinine Ratio 17; Blood Urea Nitrogen 12 mg/dL (9-20); Calcium 7.7 mg/dL (8.4-10.2); Hemolysis Index 0
--- NOTE | 2018-08-30 07:55 | Progress Note ---
Assessment and Plan 1. Hypernatremia: Secondary to volume depletion. Sodium level is better. Continue IV fluids. Continue water flushes through the PEG tube. Monitor sodium level. 2. Acute kidney injury: Vasomotor / hemodynamic DAMON. Renal function is better. UA is bland. Urine lytes. Continue IV fluids. Avoid nephrotoxic agents. Meds dosage based on GFR. 3. FEN: Replete Phos. 4. Bilateral pneumonia: HCAP vs aspiration. 5. HIV /AIDS: Followed by ID. 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 7. Cachexia. Subjective Date of service: 08/30/18 Interval history: Patient was seen and examined at the bedside. Objective - Vital Signs Vital signs: Vital Signs - 12hr 08/29/18 08/29/18 08/29/18 20:16 20:17 20:33 Pulse Rate Pulse Rate [ 110 H 99 H Anterior Bilateral Throughout] Respiratory 22 20 Rate [Anterior Bilateral Throughout] Blood Pressure O2 Sat by Pulse 98 Oximetry 08/30/18 00:13 Pulse Rate 107 H Pulse Rate [ Anterior Bilateral Throughout] Respiratory Rate [Anterior Bilateral Throughout] Blood Pressure 113/56 O2 Sat by Pulse 100 Oximetry - General Appearance General appearance: well-developed, appears stated age, cachectic, other (not in distress, on wrist restrains) EENT: ATNC Neck: supple Respiratory: Present: Clear to Ascultation Cardiology: regular, S1S2, no murmurs Gastrointestinal: normoactive bowel sounds Neurologic: confused, disoriented, other (able to move extremities) Musculoskeletal: other (no edema) - Lab 08/30/18 05:42 08/30/18 05:42 Most recent lab results Calcium 7.7 mg/dL (8.4-10.2) L 08/30/18 05:42 Phosphorus 2.20 mg/dL (2.5-4.5) L D 08/30/18 05:42 Magnesium 1.90 mg/dL (1.7-2.3) 08/30/18 05:42 Medications & Allergies - Medications Allergies/Adverse Reactions: Allergies No Known Allergies Allergy (Verified 08/27/18 10:38) Home Medications: Home Medications Medication Instructions Recorded Confirmed Last Taken Type Acetylcysteine 20% Oral [Mucomyst 3 ml INTRATRACH Q6H 03/28/18 03/28/18 Unknown History Oral] Aspirin [Aspirin TAB] 325 mg FEEDTUBE DAILY 03/28/18 03/28/18 Unknown History Atorvastatin Calcium [Lipitor] 20 mg FEEDTUBE HS 03/28/18 03/28/18 Unknown History Bisacodyl [Bisac-Evac] 10 mg RC DAILY PRN 03/28/18 03/28/18 Unknown History Cholecalciferol (Vitamin D3) 2,000 unit FEEDTUBE QAM 03/28/18 03/28/18 Unknown History [Vitamin D3] Darunavir Ethanolate [Prezista] 8 ml FEEDTUBE QAM 03/28/18 03/28/18 Unknown History Docusate Sodium [Move It Along] 100 mg FEEDTUBE Q12H PRN 03/28/18 03/28/18 Unknown History Doxazosin Mesylate [Cardura] 1 mg FEEDTUBE HS 03/28/18 03/28/18 Unknown History Ergocalciferol [Vitamin D2] 1 cap FEEDTUBE QWEEK 03/28/18 03/28/18 Unknown History FLUoxetine HCL [PROzac] 40 mg FEEDTUBE QAM 03/28/18 03/28/18 Unknown History Gabapentin [Neurontin] 300 mg FEEDTUBE HS 03/28/18 03/28/18 Unknown History Haloperidol Decanoate [Haldol 50 mg IM Q4W 03/28/18 03/28/18 Unknown History Decanoate] Haloperidol Lactate [Haldol] 0.4 ml IM Q8H PRN 03/28/18 03/28/18 Unknown History Ipratropium/Albuterol Sulfate 1 ampul IH Q4HR 03/28/18 03/28/18 Unknown History [DUONEB *Not for PRN Use*] LORazepam [Ativan] 1 mg FEEDTUBE BID 03/28/18 03/28/18 Unknown History Leucovorin (Nf) 25 mg PO QAM 03/28/18 03/28/18 Unknown History Midodrine [Proamatine] 15 mg FEEDTUBE Q8H 03/28/18 03/28/18 Unknown History Polyethylene Glycol 3350 17 gm FEEDTUBE DAILY PRN 03/28/18 03/28/18 Unknown History [Smoothlax] Pyrimethamine [Daraprim] 25 mg FEEDTUBE QAM 03/28/18 03/28/18 Unknown History Quetiapine Fumarate [Seroquel] 100 mg FEEDTUBE Q8H 03/28/18 03/28/18 Unknown History Ritonavir [Norvir] 1.3 ml FEEDTUBE DAILY 03/28/18 03/28/18 Unknown History Scopolamine [Transderm-Scop] 1 each TD Q72H 03/28/18 03/28/18 Unknown History Sennosides [Senna Laxative] 17.2 mg FEEDTUBE HS 03/28/18 03/28/18 Unknown History Sodium Chloride 2 tab PO Q8H 03/28/18 03/28/18 Unknown History lamiVUDine [Lamivudine] 30 ml FEEDTUBE QAM 03/28/18 03/28/18 Unknown History raNITIdine HCl [Zantac 15mg/ml 10 ml FEEDTUBE Q12H 03/28/18 03/28/18 Unknown History Oral Liq] sulfADIAZINE 1,000 mg FEEDTUBE Q12H 03/28/18 03/28/18 Unknown History Sulfamethoxazole/Trimethoprim 285 mg PO BID 14 Days oral.liqd 03/31/18 Unknown Rx [Bactrim 200-40 mg/5 ml Oral Liq] traMADol [Ultram 50 MG tab] 50 mg FEEDTUBE TID #10 tablet 03/31/18 Unknown Rx Bacitracin Zinc Oint [Antibiotic 1 applicatio TP BID #1 tube 08/22/18 Unknown Rx Oint] Active Medications: Generic Name Dose Route Start Last Admin Trade Name Freq PRN Reason Stop Dose Admin Acetaminophen 650 mg 08/27/18 17:35 08/27/18 22:03 Tylenol PO 650 mg Q4H PRN Administration Pain MILD(1-3)/Fever >100.5/DELGADO Albuterol 2.5 mg 08/27/18 17:39 Proventil IH Q4HRT PRN Shortness Of Breath Albuterol/Ipratropium 1 ampul 08/27/18 20:00 08/29/18 20:14 Duoneb *Not For Prn Use* IH 1 ampul QIDRT BLOSSOM Administration Lipase/Protease/Amylase 1 each 08/27/18 18:41 Pancrejoan Lema 10,500 Unit FEEDTUBE PRN PRN For Clogged Feeding Tube Aspirin 325 mg 08/28/18 11:00 08/29/18 09:19 Aspirin FEEDTUBE 325 mg DAILY BLOSSOM Administration Atorvastatin Calcium 20 mg 08/28/18 22:00 08/29/18 22:39 Lipitor FEEDTUBE 20 mg HS BLOSSOM Administration Bacitracin 1 applic 08/28/18 10:00 08/29/18 22:46 Antibiotic Oint TP 1 applic BID BLOSSOM Administration Cholecalciferol 2,000 unit 08/28/18 14:00 08/29/18 09:16 Vitamin D3 FEEDTUBE 2,000 unit DAILY BLOSSOM Administration Darunavir 800 mg 08/28/18 14:00 08/29/18 09:18 Prezista PO 800 mg QDAY BLOSSOM Administration Docusate Sodium 100 mg 08/28/18 14:00 08/29/18 21:07 Colace FEEDTUBE 100 mg BID BLOSSOM Administration Doxazosin Mesylate 1 mg 08/28/18 22:00 08/29/18 22:38 Cardura FEEDTUBE 1 mg HS BLOSSOM Administration Famotidine 20 mg 08/27/18 22:00 08/29/18 22:40 Pepcid PO 20 mg BID BLOSSOM Administration Fluoxetine HCl 40 mg 08/28/18 14:00 08/29/18 09:15 Prozac PO 40 mg QDAY BLOSSOM Administration Gabapentin 300 mg 08/28/18 22:00 08/29/18 22:39 Neurontin FEEDTUBE 300 mg HS BLOSSOM Administration Haloperidol Decanoate 50 mg 08/28/18 08:00 Haldol Decanoate IM Q4W BLOSSOM Haloperidol Lactate 2 mg 08/28/18 07:30 08/29/18 22:32 Haldol IM 2 mg Q8H PRN Administration Agitation Hydromorphone HCl 0.5 mg 08/27/18 17:36 Dilaudid IV Q3H PRN Pain , Severe (7-10) Dextrose 1,000 mls @ 100 mls/hr 08/28/18 12:00 08/29/18 23:10 D5w IV 100 mls/hr DIRECT BLOSSOM Administration Cefepime HCl 1 gm in 100 mls @ 200 mls/hr 08/28/18 22:00 08/30/18 05:38 Maxipime/Ns 1 Gm/100 Ml IV 200 mls/hr Q8HR BLOSSOM Administration Protocol Metronidazole 500 mg in 100 mls @ 100 mls/hr 08/28/18 16:00 08/30/18 05:38 Flagyl 500 Mg/100 Ml IV 100 mls/hr Q8HR BLOSSOM Administration Protocol Ibuprofen 600 mg 08/27/18 17:36 08/28/18 05:37 Motrin PO 600 mg Q6H PRN Administration Pain, Mild (1-3) Lamivudine 300 mg 08/28/18 12:00 08/29/18 09:18 Epivir FEEDTUBE 300 mg QAM BLOSSOM Administration Levothyroxine Sodium 50 mcg 08/29/18 06:00 08/30/18 05:38 Synthroid PO 50 mcg DAILY@0600 BLOSSOM Administration Midodrine 15 mg 08/28/18 12:00 08/30/18 04:56 Proamatine FEEDTUBE 15 mg Q8H BLOSSOM Administration Ondansetron HCl 4 mg 08/27/18 17:35 Zofran IV Q8H PRN Nausea And Vomiting Polyethylene Glycol 17 gm 08/28/18 07:30 Miralax 3350 FEEDTUBE DAILY PRN Constipation Quetiapine Fumarate 100 mg 08/28/18 12:00 08/30/18 04:56 Seroquel FEEDTUBE 100 mg Q8H BLOSSOM Administration Ritonavir 100 mg 08/28/18 14:00 08/29/18 09:17 Norvir PO 100 mg DAILY BLOSSOM Administration Scopolamine 1 each 08/28/18 12:00 08/28/18 12:04 Transderm-Scop TD 1 each Q72H BLOSSOM Administration Simple Syrup 15 ml 08/27/18 18:41 Simple Syrup FEEDTUBE PRN PRN Hypoglycemia Simple Syrup 30 ml 08/27/18 18:41 Simple Syrup FEEDTUBE PRN PRN Hypoglycemia Sodium Bicarbonate 325 mg 08/27/18 18:41 Sodium Bicarbonate FEEDTUBE PRN PRN For Clogged Feeding Tube Sodium Chloride 10 ml 08/27/18 22:00 08/29/18 22:41 Sodium Chloride Flush Syringe 10 Ml IV 10 ml BID BLOSSOM Administration Sodium Chloride 10 ml 08/27/18 17:35 Sodium Chloride Flush Syringe 10 Ml IV PRN PRN LINE FLUSH Sodium Phosphate 250 mg 08/29/18 12:00 08/29/18 22:39 K-Phos Neutral PO 250 mg BID BLOSSOM Administration Tenofovir Disoproxil Fumarate 300 mg 08/28/18 16:30 08/29/18 09:17 Viread PO 300 mg QDAY BLOSSOM Administration Tramadol HCl 50 mg 08/28/18 12:00 08/29/18 21:06 Ultram FEEDTUBE 50 mg TID BLOSSOM Administration
[2018-08-30] MEDS: DUONEB *Not for PRN Use IH SCH ×4 (08:02→19:45)
--- NOTE | 2018-08-30 09:54 | Progress Note ---
Assessment and Plan Cultures: 08/27/2018 blood culture: No growth to date 08/27/2018 MRSA nasal culture: negative A/P: 58-year-old male with HIV AIDS, toxoplasmosis, CVA with residual weakness, status post tracheostomy reversal for previous respiratory failure, syphilitic encephalitis, traumatic brain injury, cocaine and tobacco abuse who is currently a fpc resident at [place] was sent to the emergency room on 08/27/2018 with tachycardia and hypoxia. Admitted with: 1) Bilateral pneumonia, R>L causing acute respiratory failure: Etiology is p robably HCAP vs aspiration. PCP is quite unlikely given that patient is on antiretroviral therapy with virologic control and good CD4 count in the past, and with him at the [place], he seems to be compliant with his HIV meds. Continue Cefepime and Flagyl 2) HIV/AIDS: Chart reviewed. Continue antiretroviral therapy: Tenofovir, lamivudine, ritonavir boosted darunavir. Monitor for drug interactions. Last viral load in March 2018 was undetectable and CD4 count was more than 700. 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 Review of his [facility]pc records and MAR does not show him on active toxoplasma treatment, which is appropriate with his CD4 count being more than 700 back in March 2018. 4) Hypernatremia and acute metabolic encephalopathy. 5) Cachexia, malnutrition: guarded prognosis. Recs: Continue IV cefepime 1 gm IV every 8 hours, D3 Continue Flagyl 500mg IV every 8 hours, D3 Continue antiretroviral therapy: Tenofovir, lamivudine, ritonavir boosted darunavir [facility] M: [phone] O:[phone] Subjective Date of service: 08/30/18 Interval history: Patient seen and examined. Asleep, easy to arouse. No acute distress observed, follows simple commands. Objective - Exam Narrative Exam: Constitutional: Asleep, easily arousable. No acute distress observed. Cachexia + Head, Ears, Nose: Normocephalic, atraumatic. External ears, nose normal Eyes: Conjunctivae/corneas clear. No icterus. No ptosis. Neck: Supple, no meningeal signs. Old trach scar Oral: poor oral hygiene, no thrush Cardiovascular: S1, S2 normal. Respiratory: + rhonchi bilaterally GI: Soft, non-tender; bowel sounds normal. No peritoneal signs Musculoskeletal: No pedal edema, no cyanosis. Skin: No rash or abscess Hem/Lymphatic: No palpable cervical or supraclavicular nodes. No lymphangitis Psych: clam, lethargic Neurological: Asleep, easy to arouse, follows simple commands - Constitutional Vitals: Vital Signs Temp Pulse Resp BP Pulse Ox 97.9 F 106 H 20 113/56 97 08/29/18 17:10 08/30/18 08:12 08/30/18 08:12 08/30/18 00:13 08/30/18 09:32 Temperature -Last 24 Hours Temperature 97.9 F Temperature 98.6 F - Labs CBC & Chem 7: 08/30/18 05:42 08/30/18 05:42 Labs: Abnormal lab results 08/30/18 08/30/18 Range/Units 05:42 05:42 RBC 3.35 L (3.65-5.03) M/mm3 Hgb 9.1 L (11.8-15.2) gm/dl Hct 27.8 L (35.5-45.6) % MCV 83 L (84-94) fl MCH 27 L (28-32) pg RDW 19.7 H (13.2-15.2) % Plt Count 97 L (140-440) K/mm3 [place] % (Auto) 13.1 H (0.0-7.3) % [place] # 1.0 H (0.0-0.8) K/mm3 Chloride 115.5 H (98-107) mmol/L Creatinine 0.7 L (0.8-1.5) mg/dL Glucose 136 H (75-100) mg/dL Calcium 7.7 L (8.4-10.2) mg/dL Phosphorus 2.20 L D (2.5-4.5) mg/dL
[2018-08-30] MEDS: ULTRAM FEEDTUBE SCH ×3 (10:00→23:08)
[2018-08-30] MEDS: EPIVIR FEEDTUBE SCH (11:00)
[2018-08-30] MEDS: VITAMIN D3 FEEDTUBE SCH (12:13)
[2018-08-30] MEDS: PEPCID PO SCH ×2 (12:13→23:09)
[2018-08-30] MEDS: K-PHOS NEUTRAL PO SCH ×2 (12:13→22:44)
[2018-08-30] MEDS: VIREAD PO SCH (12:14)
[2018-08-30] MEDS: PROzac PO SCH (12:14)
[2018-08-30] MEDS: ASPIRIN FEEDTUBE SCH (12:14)
[2018-08-30] MEDS: PREZISTA PO SCH (12:14)
[2018-08-30] MEDS: NORVIR PO SCH (12:14)
[2018-08-30] MEDS: COLACE FEEDTUBE SCH ×2 (12:15→22:54)
[2018-08-30] MEDS: SODIUM CHLORIDE FLUSH SYRINGE 10 ML IV SCH ×2 (12:19→23:06)
[2018-08-30] MEDS: ANTIBIOTIC OINT TP SCH ×2 (12:19→23:06)
--- NOTE | 2018-08-30 14:11 | Progress Note ---
Assessment and Plan /Acute Respiratory failure with hypoxia Sec to biateral Pneumonia, High flow O2 for now, Bipap if necessary cont abx, frequent nebs /Bilateral pneumonia Will treat as CAP vs HCAP Initially placed on IV Zosyn and Vancomycin PCP in differential diagnosis Consulted ID and recommended to Continue Cefepime and Flagyl, discontniue Vancomycin. / COPD (chronic obstructive pulmonary disease) with exacerbation, POA Cont duonebs / HIV (human immunodeficiency virus infection) Last CD 4 count is in Mid 700's Cont antiretrovirals /hypernatremia, due to dehydration, cont hypotonic fluid /DAMON, vasomotor nephropathy, resolved with iv fluid / CVA, old, dysarthria Supportive care / Malnutrition, severe Dietitian consult / HLD (hyperlipidemia) Cont statins / GERD (gastroesophageal reflux disease) Cont PPI's / Vitamin D deficiency Cont Vit D / Peripheral neuropathy Cont Gabapentin / Bipolar 1 disorder Cont seroquel / DVT prophylaxis Lovenox and GI prophylaxis Physical Exam: Constitutional: No acute distress. Cachexia + Head, Ears, Nose: Normocephalic, atraumatic. External ears, nose normal Eyes: Conjunctivae/corneas clear. No icterus. No ptosis. Neck: Supple, no meningeal signs. Old trach scar Oral: poor oral hygiene, no thrush Cardiovascular: S1, S2 normal. Respiratory: few rhonchi bilaterally GI: Soft, non-tender; bowel sounds normal. No peritoneal signs Musculoskeletal: No pedal edema, no cyanosis. Skin: No rash or abscess Psych: no agitation Neurological: Awake, but not oriented to time place or person Subjective Date of service: 08/30/18 Interval history: Pt seen and examined appears much alert and wake no family at bedside Discussed with RN at the bedside Objective - Constitutional Vitals: Vital Signs - 12hr 08/30/18 08/30/18 08/30/18 08:02 08:12 09:32 Temperature Pulse Rate Pulse Rate [ 104 H 106 H Anterior Bilateral Throughout] Respiratory Rate Respiratory 20 20 Rate [Anterior Bilateral Throughout] Blood Pressure O2 Sat by Pulse 97 Oximetry 08/30/18 08/30/18 08/30/18 12:28 12:55 13:02 Temperature 98.6 F Pulse Rate 108 H Pulse Rate [ 102 H 100 H Anterior Bilateral Throughout] Respiratory 16 Rate Respiratory 18 18 Rate [Anterior Bilateral Throughout] Blood Pressure 105/63 O2 Sat by Pulse 98 Oximetry - Labs CBC & Chem 7: 09/01/18 05:24 09/01/18 11:14 Labs: Abnormal lab results 08/30/18 08/30/18 Range/Units 05:42 05:42 RBC 3.35 L (3.65-5.03) M/mm3 Hgb 9.1 L (11.8-15.2) gm/dl Hct 27.8 L (35.5-45.6) % MCV 83 L (84-94) fl MCH 27 L (28-32) pg RDW 19.7 H (13.2-15.2) % Plt Count 97 L (140-440) K/mm3 [place] % (Auto) 13.1 H (0.0-7.3) % [place] # 1.0 H (0.0-0.8) K/mm3 Chloride 115.5 H (98-107) mmol/L Creatinine 0.7 L (0.8-1.5) mg/dL Glucose 136 H (75-100) mg/dL Calcium 7.7 L (8.4-10.2) mg/dL Phosphorus 2.20 L D (2.5-4.5) mg/dL
[2018-08-30] MEDS: D5/0.45NS 1,000 ML IV SCH (16:20)
[2018-08-30] MEDS: NEURONTIN FEEDTUBE SCH (22:44)
[2018-08-30] MEDS: CARDURA FEEDTUBE SCH (22:54)
[2018-08-31] MEDS: MAXIPIME/NS 1 GM/100 ML 1 GM/100 ML BAG IV SCH (05:13)
[2018-08-31] MEDS: PROAMATINE FEEDTUBE SCH ×3 (05:13→21:57)
[2018-08-31] MEDS: FLAGYL 500 MG/100 ML 500 MG/100 ML BAG IV SCH (05:13)
[2018-08-31] MEDS: SYNTHROID PO SCH (05:14)
[2018-08-31 06:49] LABS: BUN/Creatinine Ratio 18; Blood Urea Nitrogen 11 mg/dL (9-20); Calcium 7.9 mg/dL (8.4-10.2); Hemolysis Index 54
[2018-08-31] MEDS: D5/0.45NS 1,000 ML IV SCH (07:03)
[2018-08-31] MEDS: DUONEB *Not for PRN Use IH SCH ×4 (07:50→19:51)
--- NOTE | 2018-08-31 09:04 | Progress Note ---
Assessment and Plan 1. Hypernatremia: Secondary to volume depletion. Sodium level is better. Continue IV fluids. Continue water flushes through the PEG tube. Monitor sodium level. 2. Acute kidney injury: Vasomotor / hemodynamic DAMON. Renal function is better. UA is bland. Urine lytes. Continue IV fluids. Avoid nephrotoxic agents. Meds dosage based on GFR. 3. FEN: Hyperkalemia, Kayexalate ordered. 4. Bilateral pneumonia: HCAP vs aspiration. 5. HIV /AIDS: Followed by ID. 6. 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 7. Cachexia. Subjective Date of service: 08/31/18 Interval history: Patient was seen and examined at the bedside. Objective - Vital Signs Vital signs: Vital Signs - 12hr 08/30/18 08/30/18 08/31/18 22:00 22:32 07:50 Temperature 99.0 F Pulse Rate 107 H Pulse Rate [ 101 H Anterior Bilateral Throughout] Respiratory 18 Rate Respiratory 20 Rate [Anterior Bilateral Throughout] Blood Pressure 105/62 O2 Sat by Pulse 96 97 Oximetry 08/31/18 08/31/18 08:00 08:43 Temperature Pulse Rate Pulse Rate [ 105 H Anterior Bilateral Throughout] Respiratory Rate Respiratory 20 Rate [Anterior Bilateral Throughout] Blood Pressure O2 Sat by Pulse 97 Oximetry - General Appearance General appearance: well-developed, appears stated age, other (not in distress, on wrist restrains) EENT: ATNC Neck: supple Respiratory: Present: Clear to Ascultation Cardiology: regular, S1S2, no murmurs Gastrointestinal: normoactive bowel sounds, no tenderness, no distended Neurologic: confused, disoriented, other (able to move extremities) Musculoskeletal: other (no edema) - Lab 08/31/18 15:48 08/31/18 15:47 Most recent lab results Calcium 7.9 mg/dL (8.4-10.2) L 08/31/18 05:39 Phosphorus 2.80 mg/dL (2.5-4.5) D 08/31/18 05:39 Magnesium 1.90 mg/dL (1.7-2.3) 08/30/18 05:42 Medications & Allergies - Medications Allergies/Adverse Reactions: Allergies No Known Allergies Allergy (Verified 08/27/18 10:38) Home Medications: Home Medications Medication Instructions Recorded Confirmed Last Taken Type Acetylcysteine 20% Oral [Mucomyst 3 ml INTRATRACH Q6H 03/28/18 03/28/18 Unknown History Oral] Aspirin [Aspirin TAB] 325 mg FEEDTUBE DAILY 03/28/18 03/28/18 Unknown History Atorvastatin Calcium [Lipitor] 20 mg FEEDTUBE HS 03/28/18 03/28/18 Unknown History Bisacodyl [Bisac-Evac] 10 mg RC DAILY PRN 03/28/18 03/28/18 Unknown History Cholecalciferol (Vitamin D3) 2,000 unit FEEDTUBE QAM 03/28/18 03/28/18 Unknown History [Vitamin D3] Darunavir Ethanolate [Prezista] 8 ml FEEDTUBE QAM 03/28/18 03/28/18 Unknown History Docusate Sodium [Move It Along] 100 mg FEEDTUBE Q12H PRN 03/28/18 03/28/18 Unknown History Doxazosin Mesylate [Cardura] 1 mg FEEDTUBE HS 03/28/18 03/28/18 Unknown History Ergocalciferol [Vitamin D2] 1 cap FEEDTUBE QWEEK 03/28/18 03/28/18 Unknown History FLUoxetine HCL [PROzac] 40 mg FEEDTUBE QAM 03/28/18 03/28/18 Unknown History Gabapentin [Neurontin] 300 mg FEEDTUBE HS 03/28/18 03/28/18 Unknown History Haloperidol Decanoate [Haldol 50 mg IM Q4W 03/28/18 03/28/18 Unknown History Decanoate] Haloperidol Lactate [Haldol] 0.4 ml IM Q8H PRN 03/28/18 03/28/18 Unknown History Ipratropium/Albuterol Sulfate 1 ampul IH Q4HR 03/28/18 03/28/18 Unknown History [DUONEB *Not for PRN Use*] LORazepam [Ativan] 1 mg FEEDTUBE BID 03/28/18 03/28/18 Unknown History Leucovorin (Nf) 25 mg PO QAM 03/28/18 03/28/18 Unknown History Midodrine [Proamatine] 15 mg FEEDTUBE Q8H 03/28/18 03/28/18 Unknown History Polyethylene Glycol 3350 17 gm FEEDTUBE DAILY PRN 03/28/18 03/28/18 Unknown History [Smoothlax] Pyrimethamine [Daraprim] 25 mg FEEDTUBE QAM 03/28/18 03/28/18 Unknown History Quetiapine Fumarate [Seroquel] 100 mg FEEDTUBE Q8H 03/28/18 03/28/18 Unknown History Ritonavir [Norvir] 1.3 ml FEEDTUBE DAILY 03/28/18 03/28/18 Unknown History Scopolamine [Transderm-Scop] 1 each TD Q72H 03/28/18 03/28/18 Unknown History Sennosides [Senna Laxative] 17.2 mg FEEDTUBE HS 03/28/18 03/28/18 Unknown History Sodium Chloride 2 tab PO Q8H 03/28/18 03/28/18 Unknown History lamiVUDine [Lamivudine] 30 ml FEEDTUBE QAM 03/28/18 03/28/18 Unknown History raNITIdine HCl [Zantac 15mg/ml 10 ml FEEDTUBE Q12H 03/28/18 03/28/18 Unknown History Oral Liq] sulfADIAZINE 1,000 mg FEEDTUBE Q12H 03/28/18 03/28/18 Unknown History Sulfamethoxazole/Trimethoprim 285 mg PO BID 14 Days oral.liqd 03/31/18 Unknown Rx [Bactrim 200-40 mg/5 ml Oral Liq] traMADol [Ultram 50 MG tab] 50 mg FEEDTUBE TID #10 tablet 03/31/18 Unknown Rx Bacitracin Zinc Oint [Antibiotic 1 applicatio TP BID #1 tube 08/22/18 Unknown R x Oint] Active Medications: Generic Name Dose Route Start Last Admin Trade Name Freq PRN Reason Stop Dose Admin Acetaminophen 650 mg 08/27/18 17:35 08/27/18 22:03 Tylenol PO 650 mg Q4H PRN Administration Pain MILD(1-3)/Fever >100.5/DELGADO Albuterol 2.5 mg 08/27/18 17:39 Proventil IH Q4HRT PRN Shortness Of Breath Albuterol/Ipratropium 1 ampul 08/27/18 20:00 08/31/18 07:50 Duoneb *Not For Prn Use* IH 1 ampul QIDRT [facility] Administration Lipase/Protease/Amylase 1 each 08/27/18 18:41 Pancreazbette Lema 10,500 Unit FEEDTUBE PRN PRN For Clogged Feeding Tube Aspirin 325 mg 08/28/18 11:00 08/30/18 12:14 Aspirin FEEDTUBE 325 mg DAILY BLOSSOM Administration Atorvastatin Calcium 20 mg 08/28/18 22:00 08/30/18 22:44 Lipitor FEEDTUBE 20 mg HS BLOSSOM Administration Bacitracin 1 applic 08/28/18 10:00 08/30/18 23:06 Antibiotic Oint TP Not Given BID [facility] Cholecalciferol 2,000 unit 08/28/18 14:00 08/30/18 12:13 Vitamin D3 FEEDTUBE 2,000 unit DAILY [facility] Administration Darunavir 800 mg 08/28/18 14:00 08/30/18 12:14 Prezista PO 800 mg QDAY [place] Administration Docusate Sodium 100 mg 08/28/18 14:00 08/30/18 22:54 Colace FEEDTUBE 100 mg BID [place] Administration Doxazosin Mesylate 1 mg 08/28/18 22:00 08/30/18 22:54 Cardura FEEDTUBE 1 mg HS BL[facility] Administration Famotidine 20 mg 08/27/18 22:00 08/30/18 23:09 Pepcid PO 20 mg BID [facility] Administration Fluoxetine HCl 40 mg 08/28/18 14:00 08/30/18 12:14 Prozac PO 40 mg QDAY BLSOSOM Administration Gabapentin 300 mg 08/28/18 22:00 08/30/18 22:44 Neurontin FEEDTUBE 300 mg HS [place] Administration Haloperidol Decanoate 50 mg 08/28/18 08:00 Haldol Decanoate IM Q4W [facility] Haloperidol Lactate 2 mg 08/28/18 07:30 08/29/18 22:32 Haldol IM 2 mg Q8H PRN Administration Agitation Hydromorphone HCl 0.5 mg 08/27/18 17:36 Dilaudid IV Q3H PRN Pain , Severe (7-10) Cefepime HCl 1 gm in 100 mls @ 200 mls/hr 08/28/18 22:00 08/31/18 05:13 Maxipime/Ns 1 Gm/100 Ml IV 200 mls/hr Q8HR [facility] Administration Protocol Metronidazole 500 mg in 100 mls @ 100 mls/hr 08/28/18 16:00 03/21/19 05:13 Flagyl 500 Mg/100 Ml IV 100 mls/hr Q8HR [facility] Administration Protocol Dextrose/Sodium Chloride 1,000 mls @ 75 mls/hr 08/30/18 15:00 08/31/18 07:03 D5/0.45ns IV 75 mls/hr DIRECT [facility] Administration Ibuprofen 600 mg 08/27/18 17:36 08/28/18 05:37 Motrin PO 600 mg Q6H PRN Administration Pain, Mild (1-3) Lamivudine 300 mg 08/28/18 12:00 08/30/18 11:00 Epivir FEEDTUBE 300 mg QAM [facility] Administration Levothyroxine Sodium 50 mcg 08/29/18 06:00 08/31/18 05:14 Synthroid PO 50 mcg DAILY@0600 [facility] Administration Midodrine 15 mg 08/28/18 12:00 08/31/18 05:13 Proamatine FEEDTUBE 15 mg Q8H [facility] Administration Ondansetron HCl 4 mg 08/27/18 17:35 Zofran IV Q8H PRN Nausea And Vomiting Polyethylene Glycol 17 gm 08/28/18 07:30 Miralax 3350 FEEDTUBE DAILY PRN Constipation Quetiapine Fumarate 100 mg 08/28/18 12:00 08/31/18 05:14 Seroquel FEEDTUBE 100 mg Q8H [place] Administration Ritonavir 100 mg 08/28/18 14:00 08/30/18 12:14 Norvir PO 100 mg DAILY [facility] Administration Scopolamine 1 each 08/28/18 12:00 08/28/18 12:04 Transderm-Scop TD 1 each Q72H [facility] Administration Simple Syrup 15 ml 08/27/18 18:41 Simple Syrup FEEDTUBE PRN PRN Hypoglycemia Simple Syrup 30 ml 08/27/18 18:41 Simple Syrup FEEDTUBE PRN PRN Hypoglycemia Sodium Bicarbonate 325 mg 08/27/18 18:41 Sodium Bicarbonate FEEDTUBE PRN PRN For Clogged Feeding Tube Sodium Chloride 10 ml 08/27/18 22:00 08/30/18 23:06 Sodium Chloride Flush Syringe 10 Ml IV Not Given BID [facility] Sodium Chloride 10 ml 08/27/18 17:35 Sodium Chloride Flush Syringe 10 Ml IV PRN PRN LINE FLUSH Sodium Phosphate 250 mg 08/29/18 12:00 08/30/18 22:44 K-Phos Neutral PO 250 mg BID [place] Administration Tenofovir Disoproxil Fumarate 300 mg 08/28/18 16:30 08/30/18 12:14 Viread PO 300 mg QDAY [facility] Administration Tramadol HCl 50 mg 08/28/18 12:00 08/30/18 23:08 Ultram FEEDTUBE 50 mg TID [facility] Administration
--- NOTE | 2018-08-31 10:28 | Progress Note ---
Assessment and Plan Cultures: 08/27/2018 blood culture: No growth to date 08/27/2018 MRSA nasal culture: negative A/P: 58-year-old male with HIV AIDS, toxoplasmosis, CVA with residual weakness, status post tracheostomy reversal for previous respiratory failure, syphilitic encephalitis, traumatic brain injury, cocaine and tobacco abuse who is currently a care home resident at [place] was sent to the emergency room on 08/27/2018 with tachycardia and hypoxia. Admitted with: 1) Bilateral pneumonia, R>L causing acute respiratory failure: Etiology is probably HCAP vs aspiration. PCP is quite unlikely given that patient is on antiretroviral therapy with virologic control and good CD4 count in the past, and with him at the [place], he seems to be compliant with his HIV meds. Continue Cefepime and Flagyl 2) HIV/AIDS: Chart reviewed. Continue antiretroviral therapy: Tenofovir, lamivudine, ritonavir boosted darunavir. Monitor for drug interactions. Last viral load in March 2018 was undetectable and CD4 count was more than 700. 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 Review of his care home records and MAR does not show him on active toxoplasma treatment, which is appropriate with his CD4 count being more than 700 back in March 2018. 4) Hypernatremia and acute metabolic encephalopathy. 5) Cachexia, malnutrition: guarded prognosis. Recs: Discontinue IV Cefepime Discontinue Flagyl Start Augmentin suspension 875mg PO BID for total 7 days Continue antiretroviral therapy: Tenofovir, lamivudine, ritonavir boosted darunavir [facility] M: [phone] O:[phone] Subjective Date of service: 08/31/18 Interval history: Patient seen and examined. Awake, Alert, no acute distress. Objective - Exam Narrative Exam: Constitutional: Awake, alert No acute distress observed. Cachexia + Head, Ears, Nose: Normocephalic, atraumatic. External ears, nose normal Eyes: Conjunctivae/corneas clear. No icterus. No ptosis. Neck: Supple, no meningeal signs. Old trach scar Oral: poor oral hygiene, no thrush Cardiovascular: S1, S2 normal. Respiratory: scattered rhonci GI: Soft, non-tender; bowel sounds normal. No peritoneal signs Musculoskeletal: No pedal edema, no cyanosis. Skin: No rash or abscess Hem/Lymphatic: No palpable cervical or supraclavicular nodes. No lymphangitis Psych: calm Neurological: Awake, alert - Constitutional Vitals: Vital Signs Temp Pulse Resp BP Pulse Ox 99.0 F 105 H 20 105/62 97 08/30/18 22:32 08/31/18 08:00 08/31/18 08:00 08/30/18 22:32 08/31/18 08:43 Temperature -Last 24 Hours Temperature 99.0 F Temperature 98.1 F Temperature 98.6 F - Labs CBC & Chem 7: 08/30/18 05:42 08/31/18 05:39 Labs: Abnormal lab results 08/31/18 Range/Units 05:39 Potassium 5.5 H D (3.6-5.0) mmol/L Chloride 109.0 H (98-107) mmol/L Carbon Dioxide 19 L (22-30) mmol/L Creatinine 0.6 L (0.8-1.5) mg/dL Glucose 144 H (75-100) mg/dL Calcium 7.9 L (8.4-10.2) mg/dL
[2018-08-31] MEDS ORDERED: SODIUM BICARBONATE IV ONE (11:00)
[2018-08-31] MEDS ORDERED: CALCIUM GLUCONATE 1,000 MG in NACL 0.9% 100 ML IV ONE (11:00)
[2018-08-31] MEDS: VITAMIN D3 FEEDTUBE SCH (11:04)
[2018-08-31] MEDS: ASPIRIN FEEDTUBE SCH (11:04)
[2018-08-31] MEDS: PREZISTA PO SCH (11:04)
[2018-08-31] MEDS: PEPCID PO SCH ×2 (11:04→21:56)
[2018-08-31] MEDS: COLACE FEEDTUBE SCH ×2 (11:05→21:56)
[2018-08-31] MEDS: EPIVIR FEEDTUBE SCH (11:06)
[2018-08-31] MEDS: VIREAD PO SCH (11:07)
[2018-08-31] MEDS: NORVIR PO SCH (11:07)
[2018-08-31] MEDS: PROzac PO SCH (11:08)
[2018-08-31] MEDS: SODIUM CHLORIDE FLUSH SYRINGE 10 ML IV SCH ×2 (11:09→22:00)
[2018-08-31] MEDS: ULTRAM FEEDTUBE SCH ×3 (11:17→21:56)
[2018-08-31] MEDS: TRANSDERM-SCOP TD SCH (13:23)
--- NOTE | 2018-08-31 15:42 | Progress Note ---
Assessment and Plan /Acute Respiratory failure with hypoxia Sec to biateral Pneumonia, High flow O2 for now, Bipap if necessary cont abx, frequent nebs /Bilateral pneumonia Will treat as CAP Initially placed on IV Zosyn and Vancomycin PCP in differential diagnosis Consulted ID and recommended to Continue Cefepime and Flagyl, discontniued Vancomycin. / COPD (chronic obstructive pulmonary disease) with exacerbation, POA Cont duonebs / HIV (human immunodeficiency virus infection) Last CD 4 count is in Mid 700's Cont antiretrovirals, no need Px for toxox /Hyperkalemia - ordered NaHCO3, kayexalate, calcium gluconate - monitor level /hypernatremia, Na 60 today, due to dehydration, cont hypotonic fluid /DAMON, vasomotor nephropathy, resolved with iv fluid / CVA, old, dysarthria Supportive care / Malnutrition, severe Dietitian consulted / HLD (hyperlipidemia) Cont statins / GERD (gastroesophageal reflux disease) Cont PPI's / Vitamin D deficiency Cont Vit D / Peripheral neuropathy Cont Gabapentin / Bipolar 1 disorder Cont seroquel / DVT prophylaxis Lovenox and GI prophylaxis Disposition: Likely tomorrow, if K level stable Physical Exam: Constitutional: No acute distress. Cachexia + Head, Ears, Nose: Normocephalic, atraumatic. External ears, nose normal Eyes: Conjunctivae/corneas clear. No icterus. No ptosis. Neck: Supple, no meningeal signs. Old trach scar Oral: poor oral hygiene, no thrush Cardiovascular: S1, S2 normal. Respiratory: few rhonchi bilaterally GI: Soft, non-tender; bowel sounds normal. No peritoneal signs Musculoskeletal: No pedal edema, no cyanosis. Skin: No rash or abscess Psych: no agitation Neurological: Awake, and alert, Subjective Date of service: 09/07/18 Interval history: Pt seen and examined appears much alert and wake no family at bedside Discussed with RN at the bedside K level 5.5 today Objective - Constitutional Vitals: Vital Signs - 12hr 08/31/18 08/31/18 08/31/18 07:50 08:00 08:43 Temperature Pulse Rate Pulse Rate [ 101 H 105 H Anterior Bilateral Throughout] Respiratory Rate Respiratory 20 20 Rate [Anterior Bilateral Throughout] Blood Pressure O2 Sat by Pulse 97 Oximetry 08/31/18 08/31/18 08/31/18 11:54 12:33 12:44 Temperature 99.1 F Pulse Rate 97 H Pulse Rate [ 95 H 97 H Anterior Bilateral Throughout] Respiratory 22 Rate Respiratory 18 18 Rate [Anterior Bilateral Throughout] Blood Pressure 119/70 O2 Sat by Pulse 97 Oximetry - Labs CBC & Chem 7: 09/01/18 05:24 09/01/18 05:24 Labs: Abnormal lab results 08/31/18 Range/Units 05:39 Potassium 5.5 H D (3.6-5.0) mmol/L Chloride 109.0 H (98-107) mmol/L Carbon Dioxide 19 L (22-30) mmol/L Creatinine 0.6 L (0.8-1.5) mg/dL Glucose 144 H (75-100) mg/dL Calcium 7.9 L (8.4-10.2) mg/dL
[2018-08-31] MEDS ORDERED: KIONEX PO ONE (16:00)
[2018-08-31] MEDS ORDERED: AUGMENTIN ORAL LIQD PO SCH (16:00)
[2018-08-31 16:15] LABS: Hemoglobin 9.5 gm/dl (11.8-15.2); Mean Corpuscular HGB Conc 33 % (32-34); Mean Corpuscular Volume 84 fl (84-94); Platelet Count 124 K/mm3 (140-440); Red Blood Count 3.47 M/mm3 (3.65-5.03)
[2018-08-31] MEDS ORDERED: AUGMENTIN 875 MG ONE (20:00)
[2018-08-31] MEDS: AUGMENTIN 875 MG PO SCH (21:58)
[2018-08-31] MEDS: NEURONTIN FEEDTUBE SCH (21:59)
[2018-08-31] MEDS: ANTIBIOTIC OINT TP SCH (22:01)
[2018-09-01] MEDS: PROAMATINE FEEDTUBE SCH ×2 (05:37→14:35)
[2018-09-01] MEDS: SYNTHROID PO SCH (05:38)
[2018-09-01 05:57] LABS: Basophils % (Auto) 0.2 % (0.0-1.8); Eosinophils # (Auto) 0.3 K/mm3 (0.0-0.4); Eosinophils % (Auto) 2.9 % (0.0-4.3); Hematocrit 28.8 % (35.5-45.6); Hemoglobin 9.3 gm/dl (11.8-15.2); Lymphocytes # (Auto) 1.3 K/mm3 (1.2-5.4); Lymphocytes % (Auto) 11.3 % (13.4-35.0); Mean Corpuscular HGB Conc 33 % (32-34); Mean Corpuscular Volume 83 fl (84-94); Monocytes # (Auto) 1.1 K/mm3 (0.0-0.8); Monocytes % (Auto) 10.3 % (0.0-7.3); Platelet Count 135 K/mm3 (140-440); Red Blood Count 3.48 M/mm3 (3.65-5.03); Red Cell Distribution Width 19.7 % (13.2-15.2)
[2018-09-01 06:31] LABS: BUN/Creatinine Ratio 16; Blood Urea Nitrogen 11 mg/dL (9-20); Calcium 8.4 mg/dL (8.4-10.2); Hemolysis Index 23
[2018-09-01] MEDS ORDERED: KIONEX PO NR (07:32)
[2018-09-01] MEDS ORDERED: SODIUM BICARBONATE IV NR (08:00)
[2018-09-01] MEDS: DUONEB *Not for PRN Use IH SCH ×3 (08:05→16:54)
[2018-09-01] MEDS: ULTRAM FEEDTUBE SCH ×2 (08:54→13:50)
--- NOTE | 2018-09-01 09:00 | Progress Note ---
Assessment and Plan 1. Hypernatremia: Secondary to volume depletion. Sodium level is better. Continue IV fluids. Continue water flushes through the PEG tube. Monitor sodium level. 2. Acute kidney injury: Vasomotor / hemodynamic DAMON. Renal function is better. UA is bland. Urine lytes. Continue IV fluids. Avoid nephrotoxic agents. Meds dosage based on GFR. 3. FEN: Hyperkalemia, improved with Kayexalate. 4. Bilateral pneumonia: HCAP vs aspiration. 5. HIV /AIDS: Followed by ID. 6. H/o [employer] toxoplasmosis. 7. Cachexia. Subjective Date of service: 09/01/18 Interval history: Patient was seen and examined at the bedside. Objective - Vital Signs Vital signs: Vital Signs - 12hr 08/31/18 08/31/18 09/01/18 21:04 21:50 08:05 Temperature 98.1 F Pulse Rate 103 H Pulse Rate [ 103 H Anterior Bilateral Throughout] Respiratory 18 24 Rate Respiratory 16 Rate [Anterior Bilateral Throughout] Blood Pressure 102/76 O2 Sat by Pulse 98 Oximetry 09/01/18 09/01/18 09/01/18 08:07 08:18 08:54 Temperature Pulse Rate Pulse Rate [ 102 H Anterior Bilateral Throughout] Respiratory 20 Rate Respiratory 20 Rate [Anterior Bilateral Throughout] Blood Pressure O2 Sat by Pulse 92 Oximetry - General Appearance General appearance: well-developed, appears stated age, cachectic, other (not in distress, on wrist restrains) EENT: ATNC Neck: other (Trache midline) Respiratory: Present: Clear to Ascultation Cardiology: regular, S1S2, no murmurs Gastrointestinal: normoactive bowel sounds, no tenderness, no distended, other (PEG tube noted) Integumentary: warm and dry Neurologic: confused, disoriented, other (able to move extremities) Musculoskeletal: other (no edema) - Lab 09/01/18 05:24 09/01/18 11:14 Most recent lab results Calcium 8.4 mg/dL (8.4-10.2) 09/01/18 05:24 Phosphorus 2.30 mg/dL (2.5-4.5) L 09/01/18 05:24 Magnesium 1.90 mg/dL (1.7-2.3) 08/30/18 05:42 Medications & Allergies - Medications Allergies/Adverse Reactions: Allergies No Known Allergies Allergy (Verified 08/27/18 10:38) Home Medications: Home Medications Medication Instructions Recorded Confirmed Last Taken Type Acetylcysteine 20% Oral [Mucomyst 3 ml INTRATRACH Q6H 03/28/18 03/28/18 Unknown History Oral] Aspirin [Aspirin TAB] 325 mg FEEDTUBE DAILY 03/28/18 03/28/18 Unknown History Atorvastatin Calcium [Lipitor] 20 mg FEEDTUBE HS 03/28/18 03/28/18 Unknown History Bisacodyl [Bisac-Evac] 10 mg RC DAILY PRN 03/28/18 03/28/18 Unknown History Cholecalciferol (Vitamin D3) 2,000 unit FEEDTUBE QAM 03/28/18 03/28/18 Unknown History [Vitamin D3] Docusate Sodium [Move It Along] 100 mg FEEDTUBE Q12H PRN 03/28/18 03/28/18 Unknown History Doxazosin Mesylate [Cardura] 1 mg FEEDTUBE HS 03/28/18 03/28/18 Unknown History Ergocalciferol [Vitamin D2] 1 cap FEEDTUBE QWEEK 03/28/18 03/28/18 Unknown History Gabapentin [Neurontin] 300 mg FEEDTUBE HS 03/28/18 03/28/18 Unknown History Haloperidol Decanoate [Haldol 50 mg IM Q4W 03/28/18 03/28/18 Unknown History Decanoate] Haloperidol Lactate [Haldol] 0.4 ml IM Q8H PRN 03/28/18 03/28/18 Unknown History Ipratropium/Albuterol Sulfate 1 ampul IH Q4HR 03/28/18 03/28/18 Unknown History [DUONEB *Not for PRN Use*] Polyethylene Glycol 3350 17 gm FEEDTUBE DAILY PRN 03/28/18 03/28/18 Unknown History [Smoothlax] Quetiapine Fumarate [Seroquel] 100 mg FEEDTUBE Q8H 03/28/18 03/28/18 Unknown History Scopolamine [Transderm-Scop] 1 each TD Q72H 03/28/18 03/28/18 Unknown History Sennosides [Senna Laxative] 17.2 mg FEEDTUBE HS 03/28/18 03/28/18 Unknown History lamiVUDine [Lamivudine] 30 ml FEEDTUBE QAM 03/28/18 03/28/18 Unknown History traMADol [Ultram 50 MG tab] 50 mg FEEDTUBE TID #10 tablet 03/31/18 Unknown Rx Bacitracin Zinc Oint [Antibiotic 1 applicatio TP BID #1 tube 08/22/18 Unknown Rx Oint] ALBUTEROL NEB's [Proventil 0.083% 2.5 mg IH Q4HRT PRN nebu 09/01/18 Unknown Rx NEBS] Amoxicillin/K Clav Tab [Augmentin 875 each PO Q12HR #14 tablet 09/01/18 Unknown Rx 875MG TAB] Darunavir [Prezista] 800 mg PO QDAY tablet 09/01/18 Unknown Rx FLUoxetine [Prozac] 40 mg PO QDAY oral.liqd 09/01/18 Unknown Rx Famotidine [Pepcid] 20 mg PO BID tablet 09/01/18 Unknown Rx Levothyroxine [Synthroid] 50 mcg PO DAILY@0600 tablet 09/01/18 Unknown Rx Metoprolol [Lopressor TAB] 12.5 mg PO BID tablet 09/01/18 Unknown Rx Ritonavir [Norvir] 100 mg PO DAILY tab 09/01/18 Unknown Rx Tenofovir [Viread] 300 mg PO QDAY tablet 09/01/18 Unknown Rx Active Medications: Generic Name Dose Route Start Last Admin Trade Name Freq PRN Reason Stop Dose Admin Acetaminophen 650 mg 08/27/18 17:35 08/27/18 22:03 Tylenol PO 650 mg Q4H PRN Administration Pain MILD(1-3)/Fever >100.5/DELGADO Albuterol 2.5 mg 08/27/18 17:39 Proventil IH Q4HRT PRN Shortness Of Breath Albuterol/Ipratropium 1 ampul 08/27/18 20:00 09/01/18 08:05 Duoneb *Not For Prn Use* IH 1 ampul QIDRT BLOSSOM Administration Amoxicillin/Clavulanate Potassium 875 each 08/31/18 20:00 08/31/18 21:58 Augmentin 875 Mg PO 1 each Q12HR BLOSSOM Administration Lipase/Protease/Amylase 1 each 08/27/18 18:41 Tomás Lema 10,500 Unit FEEDTUBE PRN PRN For Clogged Feeding Tube Aspirin 325 mg 08/28/18 11:00 08/31/18 11:04 Aspirin FEEDTUBE 325 mg DAILY BLOSSOM Administration Atorvastatin Calcium 20 mg 08/28/18 22:00 08/31/18 21:56 Lipitor FEEDTUBE 20 mg HS BLOSSOM Administration Bacitracin 1 applic 08/28/18 10:00 08/31/18 22:01 Antibiotic Oint TP 1 applic BID BLOSSOM Administration Cholecalciferol 2,000 unit 08/28/18 14:00 08/31/18 11:04 Vitamin D3 FEEDTUBE 2,000 unit DAILY BLOSSOM Administration Darunavir 800 mg 08/28/18 14:00 08/31/18 11:04 Prezista PO 800 mg QDAY BLOSSOM Administration Docusate Sodium 100 mg 08/28/18 14:00 08/31/18 21:56 Colace FEEDTUBE 100 mg BID BLOSSOM Administration Famotidine 20 mg 08/27/18 22:00 08/31/18 21:56 Pepcid PO 20 mg BID BLOSSOM Administration Fluoxetine HCl 40 mg 08/28/18 14:00 08/31/18 11:08 Prozac PO 40 mg QDAY BLOSSOM Administration Gabapentin 300 mg 08/28/18 22:00 08/31/18 21:59 Neurontin FEEDTUBE 300 mg HS BLOSSOM Administration Haloperidol Decanoate 50 mg 08/28/18 08:00 Haldol Decanoate IM Q4W BLOSSOM Haloperidol Lactate 2 mg 08/28/18 07:30 08/29/18 22:32 Haldol IM 2 mg Q8H PRN Administration Agitation Hydromorphone HCl 0.5 mg 08/27/18 17:36 Dilaudid IV Q3H PRN Pain , Severe (7-10) Lamivudine 300 mg 08/28/18 12:00 08/31/18 11:06 Epivir FEEDTUBE 300 mg QAM BLOSSOM Administration Levothyroxine Sodium 50 mcg 08/29/18 06:00 09/01/18 05:38 Synthroid PO 50 mcg DAILY@0600 [facility] Administration Midodrine 15 mg 08/28/18 12:00 09/01/18 05:37 Proamatine FEEDTUBE 15 mg Q8H BLOSSOM Administration Ondansetron HCl 4 mg 08/27/18 17:35 Zofran IV Q8H PRN Nausea And Vomiting Polyethylene Glycol 17 gm 08/28/18 07:30 Miralax 3350 FEEDTUBE DAILY PRN Constipation Quetiapine Fumarate 100 mg 08/28/18 12:00 09/01/18 05:38 Seroquel FEEDTUBE 100 mg Q8H BLOSSOM Administration Ritonavir 100 mg 08/28/18 14:00 08/31/18 11:07 Norvir PO 100 mg DAILY BLOSSOM Administration Scopolamine 1 each 08/28/18 12:00 08/31/18 13:23 Transderm-Scop TD 1 each Q72H BLOSSOM Administration Simple Syrup 15 ml 08/27/18 18:41 Simple Syrup FEEDTUBE PRN PRN Hypoglycemia Simple Syrup 30 ml 08/27/18 18:41 Simple Syrup FEEDTUBE PRN PRN Hypoglycemia Sodium Bicarbonate 325 mg 08/27/18 18:41 Sodium Bicarbonate FEEDTUBE PRN PRN For Clogged Feeding Tube Sodium Bicarbonate 50 meq 09/01/18 07:32 Sodium Bicarbonate 50meq Syringe IV 09/01/18 10:00 ONCE NR Sodium Chloride 10 ml 08/27/18 22:00 08/31/18 22:00 Sodium Chloride Flush Syringe 10 Ml IV 10 ml BID BLOSSOM Administration Sodium Chloride 10 ml 08/27/18 17:35 Sodium Chloride Flush Syringe 10 Ml IV PRN PRN LINE FLUSH Sodium Polystyrene Sulfonate 15 gm 09/01/18 07:32 Kionex PO 09/01/18 10:00 ONCE NR Tenofovir Disoproxil Fumarate 300 mg 08/28/18 16:30 08/31/18 11:07 Viread PO 300 mg QDAY BLOSSOM Administration Tramadol HCl 50 mg 08/28/18 12:00 09/01/18 08:54 Ultram FEEDTUBE 50 mg TID BLOSSOM Administration
[2018-09-01] MEDS: ASPIRIN FEEDTUBE SCH (09:27)
[2018-09-01] MEDS: VIREAD PO SCH (09:27)
[2018-09-01] MEDS: COLACE FEEDTUBE SCH (09:27)
[2018-09-01] MEDS: VITAMIN D3 FEEDTUBE SCH (09:27)
[2018-09-01] MEDS: PREZISTA PO SCH (09:28)
[2018-09-01] MEDS: EPIVIR FEEDTUBE SCH (09:28)
[2018-09-01] MEDS: PEPCID PO SCH (09:29)
[2018-09-01] MEDS: NORVIR PO SCH (09:29)
[2018-09-01] MEDS: PROzac PO SCH (09:29)
[2018-09-01] MEDS: AUGMENTIN 875 MG PO SCH (09:30)
[2018-09-01] MEDS: SODIUM CHLORIDE FLUSH SYRINGE 10 ML IV SCH (09:32)
[2018-09-01] MEDS ORDERED: AUGMENTIN 875 MG ONE (10:00)
--- NOTE | 2018-09-01 10:00 | Progress Note ---
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 Admitted with: 1) Bilateral pneumonia, R>L causing acute respiratory failure: Etiology is probably HCAP vs aspiration. PCP is quite unlikely given that patient is on antiretroviral therapy with virologic control and good CD4 count in the past, and with him at the [facility], he seems to be compliant with his HIV meds. Continue Cefepime and Flagyl 2) HIV/AIDS: Chart reviewed. Continue antiretroviral therapy: Tenofovir, lamivudine, ritonavir boosted darunavir. Monitor for drug interactions. Last viral load in March 2018 was undetectable and CD4 count was more than 700. 3) [employer] toxoplasmosis: Likely completed treatment. Review of his prison records and MAR does not show him on active toxoplasma treatment, which is appropriate with his CD4 count being more than 700 back in March 2018. 4) Hypernatremia and acute metabolic encephalopathy. 5) Cachexia, malnutrition: guarded prognosis. Recs: Continue Augmentin suspension 875mg via g-tube BID for total 7 days, D2 of D7 Continue antiretroviral therapy: Tenofovir, lamivudine, ritonavir boosted darunavir clinically stable, OK to discharge from ID standpoint Dr. Martinez will be drafter refrigeration this weekend, , please call for questions. Mady Yan NP [facility] M: [phone] O:[phone] Subjective Date of service: 09/01/18 Interval history: Patient seen and examined. Awake, Alert, no acute distress. Objective - Exam Narrative Exam: Constitutional: Awake, alert No acute distress observed. Cachexia + Head, Ears, Nose: Normocephalic, atraumatic. External ears, nose normal Eyes: Conjunctivae/corneas clear. No icterus. No ptosis. Neck: Supple, no meningeal signs. Old trach scar Oral: poor oral hygiene, no thrush Cardiovascular: S1, S2 normal. Respiratory: scattered rhonci GI: Soft, non-tender; bowel sounds normal. No peritoneal signs Musculoskeletal: No pedal edema, no cyanosis. Skin: No rash or abscess Hem/Lymphatic: No palpable cervical or supraclavicular nodes. No lymphangitis Psych: calm Neurological: Awake, alert - Constitutional Vitals: Vital Signs Temp Pulse Resp BP Pulse Ox 98.1 F 102 H 20 102/76 92 08/31/18 21:50 09/01/18 08:18 09/01/18 08:58 08/31/18 21:50 09/01/18 08:07 Temperature -Last 24 Hours Temperature 98.1 F Temperature 97.5 F Temperature 99.1 F - Labs CBC & Chem 7: 09/01/18 05:24 09/01/18 11:14 Labs: Abnormal lab results 08/31/18 09/01/18 09/01/18 Range/Units 15:48 05:24 05:24 WBC 11.1 H (4.5-11.0) K/mm3 RBC 3.47 L 3.48 L (3.65-5.03) M/mm3 Hgb 9.5 L 9.3 L (11.8-15.2) gm/dl Hct 29.0 L 28.8 L (35.5-45.6) % MCV 83 L (84-94) fl MCH 27 L 27 L (28-32) pg RDW 20.0 H 19.7 H (13.2-15.2) % Plt Count 124 L 135 L (140-440) K/mm3 Lymph % (Auto) 11.3 L (13.4-35.0) % [place] % (Auto) 10.3 H (0.0-7.3) % [place] # 1.1 H (0.0-0.8) K/mm3 Seg Neutrophils % 75.3 H (40.0-70.0) % Seg Neutrophils # 8.4 H (1.8-7.7) K/mm3 Potassium 5.2 H (3.6-5.0) mmol/L Carbon Dioxide 21 L (22-30) mmol/L Creatinine 0.7 L (0.8-1.5) mg/dL Phosphorus 2.30 L (2.5-4.5) mg/dL
[2018-09-01] MEDS: ANTIBIOTIC OINT TP SCH (10:53)
[2018-09-01] MEDS ORDERED: LOPRESSOR PO SCH (11:00)
[2018-09-01 11:29] VITALS: BP 76/47
--- NOTE | 2018-09-01 11:32 | Progress Note ---
Assessment and Plan /NSVT - noted on tele, order stat EKG, trop, start metoprolol 12.5 BID - consult cardiology /Acute Respiratory failure with hypoxia Sec to biateral Pneumonia, High flow O2 for now, Bipap if necessary cont abx, frequent nebs /Bilateral pneumonia Will treat as CAP Initially placed on IV Zosyn and Vancomycin PCP in differential diagnosis Consulted ID and recommended to Continue Cefepime and Flagyl, discontniued Vancomycin. / COPD (chronic obstructive pulmonary disease) with exacerbation, POA Cont duonebs / HIV (human immunodeficiency virus infection) Last CD 4 count is in Mid 700's Cont antiretrovirals, no need Px for toxox /Hyperkalemia - ordered NaHCO3, kayexalate, calcium gluconate - monitor level /hypernatremia, Na 60 today, due to dehydration, cont hypotonic fluid /DAMON, vasomotor nephropathy, resolved with iv fluid / CVA, old, dysarthria Supportive care / Malnutrition, severe Dietitian consulted / HLD (hyperlipidemia) Cont statins / GERD (gastroesophageal reflux disease) Cont PPI's / Vitamin D deficiency Cont Vit D / Peripheral neuropathy Cont Gabapentin / Bipolar 1 disorder Cont seroquel / DVT prophylaxis Lovenox and GI prophylaxis Disposition: Likely tomorrow, if K level stable and clears by cardiology Physical Exam: Constitutional: No acute distress. Cachexia + Head, Ears, Nose: Normocephalic, atraumatic. External ears, nose normal Eyes: Conjunctivae/corneas clear. No icterus. No ptosis. Neck: Supple, no meningeal signs. Old trach scar Oral: poor oral hygiene, no thrush Cardiovascular: S1, S2 normal. Respiratory: few rhonchi bilaterally GI: Soft, non-tender; bowel sounds normal. No peritoneal signs Musculoskeletal: No pedal edema, no cyanosis. Skin: No rash or abscess Psych: no agitation Neurological: Awake, and alert, Subjective Date of service: 09/01/18 Objective - Constitutional Vitals: Vital Signs - 12hr 09/01/18 09/01/18 09/01/18 08:05 08:07 08:18 Temperature Pulse Rate Pulse Rate [ 103 H 102 H Anterior Bilateral Throughout] Respiratory Rate Respiratory 16 20 Rate [Anterior Bilateral Throughout] Blood Pressure O2 Sat by Pulse 92 Oximetry 09/01/18 09/01/18 09/01/18 08:54 08:58 11:17 Temperature 98.0 F Pulse Rate 85 Pulse Rate [ Anterior Bilateral Throughout] Respiratory 20 20 18 Rate Respiratory Rate [Anterior Bilateral Throughout] Blood Pressure 182/144 O2 Sat by Pulse 86 Oximetry 09/01/18 11:20 Temperature 98.0 F Pulse Rate 134 H Pulse Rate [ Anterior Bilateral Throughout] Respiratory 18 Rate Respiratory Rate [Anterior Bilateral Throughout] Blood Pressure 76/47 O2 Sat by Pulse 89 Oximetry - Labs CBC & Chem 7: 09/01/18 05:24 09/01/18 05:24 Labs: Abnormal lab results 08/31/18 09/01/18 09/01/18 Range/Units 15:48 05:24 05:24 WBC 11.1 H (4.5-11.0) K/mm3 RBC 3.47 L 3.48 L (3.65-5.03) M/mm3 Hgb 9.5 L 9.3 L (11.8-15.2) gm/dl Hct 29.0 L 28.8 L (35.5-45.6) % MCV 83 L (84-94) fl MCH 27 L 27 L (28-32) pg RDW 20.0 H 19.7 H (13.2-15.2) % Plt Count 124 L 135 L (140-440) K/mm3 Lymph % (Auto) 11.3 L (13.4-35.0) % [place] % (Auto) 10.3 H (0.0-7.3) % [place] # 1.1 H (0.0-0.8) K/mm3 Seg Neutrophils % 75.3 H (40.0-70.0) % Seg Neutrophils # 8.4 H (1.8-7.7) K/mm3 Potassium 5.2 H (3.6-5.0) mmol/L Carbon Dioxide 21 L (22-30) mmol/L Creatinine 0.7 L (0.8-1.5) mg/dL Phosphorus 2.30 L (2.5-4.5) mg/dL
[2018-09-01 11:58] LABS: BUN/Creatinine Ratio 16; Blood Urea Nitrogen 14 mg/dL (9-20); Calcium 7.9 mg/dL (8.4-10.2); Hemolysis Index 4
--- NOTE | 2018-09-01 12:44 | Discharge Summary ---
Providers - Providers Date of Admission: 08/27/18 15:17 Date of discharge: 09/01/18 Attending physician: NILSA NI 08/27/18 17:36 Consult to Physician [CONS] Routine Comment: Consulting Provider: THU NICHOLE Physician Instructions: Reason For Exam: HIV/??PCP pneumonia 08/27/18 18:41 Consult to Dietitian/Nutrition [CONS] Routine Physician Instructions: Assess nutrtn needs, initiate, modify, manage TF Reason For Exam: Reason for Consult: Write/Manage Tube Feeding Reason for Consult: Write/Manage Tube Feeding 08/28/18 11:54 Consult to Physician [CONS] Routine Comment: Consulting Provider: JAZLYN SLATER Physician Instructions: Reason For Exam: hypernatremia Primary care physician: VEHICLE MONITOR TECHNICIAN Hospitalization Condition: Stable Pertinent studies: CXR: b/l PNA Hospital course: 58-year-old male with HIV AIDS, toxoplasmosis, CVA with residual weakness, status post tracheostomy reversal for previous respiratory failure, syphilitic encephalitis, traumatic brain injury, cocaine and tobacco abuse who is currently a senior living resident at [facility] was sent to the emergency room on 08/27/2018 with tachycardia and hypoxia. CXR showed b/l PNA. ID consulted for abx recommendation and admitted for further evaluation and management. Discharge diagnosis and management: /Acute Respiratory failure with hypoxia Secondary to bilateral Pneumonia, managed with High flow O2, abx, frequent nebs, Bipap as needed /Acute on chronic encehaloapthy, POA - likely from dehydration, hypernatremia and PNA - patient at baseline now /Bilateral pneumonia Treated as CAP vs HCAP Initially placed on IV Zosyn and Vancomycin PCP was in differential diagnosis Consulted ID and recommended to Continue Cefepime and Flagyl, discontniued Vancomycin. then recommended to continue on Augmentin suspension 875mg via g-tube BID for total 7 days / COPD (chronic obstructive pulmonary disease) with exacerbation, POA due to PNA, managed with abx and duonebs / HIV (human immunodeficiency virus infection) Last CD 4 count is in Mid 700's Cont antiretrovirals, no need Px for toxoplasmosis /Hyperkalemia - ordered NaHCO3, kayexalate, calcium gluconate - monitored level /hypernatremia, due to dehydration, managed with hypotonic fluid /DAMON, likely vasomotor nephropathy, resolved with iv fluid / CVA, old, dysarthria Supportive care / Malnutrition, severe Dietitian consulted / HLD (hyperlipidemia) Cont statins / GERD (gastroesophageal reflux disease) Cont PPI's / Vitamin D deficiency Cont Vit D / Peripheral neuropathy Cont Gabapentin / Bipolar 1 disorder Cont seroquel / DVT prophylaxis Lovenox and GI prophylaxis Disposition: back to SNF with augmentin 875mg BID for total 7 days Physical Exam: Constitutional: No acute distress. Cachexia + Head, Ears, Nose: Normocephalic, atraumatic. External ears, nose normal Eyes: Conjunctivae/corneas clear. No icterus. No ptosis. Neck: Supple, no meningeal signs. Old trach scar Oral: poor oral hygiene, no thrush Cardiovascular: S1, S2 normal. Respiratory: few rhonchi bilaterally GI: Soft, non-tender; bowel sounds normal. No peritoneal signs Musculoskeletal: No pedal edema, no cyanosis. Skin: No rash or abscess Psych: no agitation Neurological: Awake, and alert, Disposition: DC/TX-03 SNF [facility] Time spent for discharge: 34 minutes Core Measure Documentation - Palliative Care Palliative Care/ Comfort Measures: Not Applicable - Core Measures Any of the following diagnoses?: history only Exam - Constitutional Vitals: Temp Pulse Resp BP Pulse Ox 98.0 F 104 H 20 76/47 89 09/01/18 11:20 09/01/18 12:37 09/01/18 12:37 09/01/18 11:20 09/01/18 11:20 Plan Activity: fall precautions Weight Bearing Status: Non-Weight Bearing Diet: per dietitian instruction, other (Tube feeding) Follow up with: PRIMARY CAREMD [Primary Care Provider] - 3-5 Days Prescriptions: Amoxicillin/K Clav Tab [Augmentin 875MG TAB] 875 each PO Q12HR #14 tablet
[2018-09-01] MEDS ORDERED: AUGMENTIN 875 MG PO SCH (22:00)
== END 2018-09-01 14:00 | DRG 974 ==
LOC: ED 10:15 → 3A 15:17
PROVIDERS: ADMIT Internal Medicine; ATTEND Internal Medicine
PROC: 4A033R1 Measurement of Arterial Saturation, Peripheral, Percutaneous Approach (ICD-10-PCS; principal; 2018-08-27)
DX: B20 Human immunodeficiency virus [HIV] disease (principal); J18.9 Pneumonia, unspecified organism; N17.0 Acute kidney failure with tubular necrosis; G93.41 Metabolic encephalopathy; E43 Unspecified severe protein-calorie malnutrition; J96.21 Acute and chronic respiratory failure with hypoxia; J44.1 Chronic obstructive pulmonary disease with (acute) exacerbation; E87.0 Hyperosmolality and hypernatremia; J44.0 Chronic obstructive pulmonary disease with (acute) lower respiratory infection; R64 Cachexia; R00.0 Tachycardia, unspecified; I10 Essential (primary) hypertension; I69.322 Dysarthria following cerebral infarction; E78.2 Mixed hyperlipidemia; K21.9 Gastro-esophageal reflux disease without esophagitis; E11.42 Type 2 diabetes mellitus with diabetic polyneuropathy; E55.9 Vitamin D deficiency, unspecified; F31.9 Bipolar disorder, unspecified; E86.0 Dehydration; B58.9 Toxoplasmosis, unspecified; E87.5 Hyperkalemia; I69.398 Other sequelae of cerebral infarction; Z79.82 Long term (current) use of aspirin; Z68.1 Body mass index [BMI] 19.9 or less, adult; Z99.81 Dependence on supplemental oxygen; Z93.1 Gastrostomy status
CPT/HCPCS: 36415; 71045; 80048; 80053; 81001; 82140; 82803; 82805; 82962; 83036; 83735; 84100; 84132; 84439; 84443; 84484; 85025; 85027; 85730; 87040; 87116; 93005; 93010; 94640; 94760; G0378; A9270-GY; J0610; J0692; J1630; J1650; J2543; J3370; J7030; J7040; J7050; J7070

== ENCOUNTER 2018-09-07 10:32 | Inpatient (IN) | payer MEDICAID ==
--- NOTE | 2018-09-07 10:53 | Emergency Department Report ---
ED General Adult HPI - General Stated complaint: LETHARGIC Time Seen by Provider: 09/07/18 10:51 - History of Present Illness Initial comments: This is a 58-year-old male with a history of HIVAIDS who has been treated in this hospital recently for healthcare associated pneumonia although there was some suspicion of pneumocystis. He is a long term resident. He was sent from the long term today I am told for being lethargic. He is unable to pro vide any history. He does answer to his name. According to the long term paperwork he is a "full code". Her recent discharge summary Hospital course: 58-year-old male with HIV AIDS, toxoplasmosis, CVA with residual weakness, status post tracheostomy reversal for previous respiratory failure, syphilitic encephalitis, traumatic brain injury, cocaine and tobacco abuse who is currently a long term resident at [facility] was sent to the emergency room on 08/27/2018 with tachycardia and hypoxia. CXR showed b/l PNA. ID consulted for abx recommendation and admitted for further evaluation and management. Discharge diagnosis and management: /Acute Respiratory failure with hypoxia Sec to biateral Pneumonia, High flow O2 for now, Bipap if necessary cont abx, frequent nebs /Acute on chronic encehaloapthy, POA - likely from dehydration, hypernatremia and PNA - patient at baseline now /Bilateral pneumonia Will treat as CAP Initially placed on IV Zosyn and Vancomycin PCP in differential diagnosis Consulted ID and recommended to Continue Cefepime and Flagyl, discontniued Vancomycin. then recommended to continue on Augmentin suspension 875mg via g-tube BID for total 7 days, D2 of D7 / COPD (chronic obstructive pulmonary disease) with exacerbation, POA Cont duonebs / HIV (human immunodeficiency virus infection) Last CD 4 count is in Mid 700's Cont antiretrovirals, no need Px for toxox /Hyperkalemia - ordered NaHCO3, kayexalate, calcium gluconate - monitor level /hypernatremia, Na 60 today, due to dehydration, cont hypotonic fluid /DAMON, vasomotor nephropathy, resolved with iv fluid / CVA, old, dysarthria Supportive care / Malnutrition, severe Dietitian consulted / HLD (hyperlipidemia) Cont statins / GERD (gastroesophageal reflux disease) Cont PPI's / Vitamin D deficiency Cont Vit D / Peripheral neuropathy Cont Gabapentin / Bipolar 1 disorder Cont seroquel / DVT prophylaxis Lovenox and GI prophylaxis Disposition: Likely tomorrow, if K level stable - Related Data Home Medications Medication Instructions Recorded Confirmed Last Taken Acetylcysteine 20% Oral [Mucomyst 3 ml INTRATRACH Q6H 03/28/18 03/28/18 Unknown Oral] Aspirin [Aspirin TAB] 325 mg FEEDTUBE DAILY 03/28/18 03/28/18 Unknown Atorvastatin Calcium [Lipitor] 20 mg FEEDTUBE HS 03/28/18 03/28/18 Unknown Bisacodyl [Bisac-Evac] 10 mg RC DAILY PRN 03/28/18 03/28/18 Unknown Cholecalciferol (Vitamin D3) 2,000 unit FEEDTUBE QAM 03/28/18 03/28/18 Unknown [Vitamin D3] Docusate Sodium [Move It Along] 100 mg FEEDTUBE Q12H PRN 03/28/18 03/28/18 Unknown Doxazosin Mesylate [Cardura] 1 mg FEEDTUBE HS 03/28/18 03/28/18 Unknown Ergocalciferol [Vitamin D2] 1 cap FEEDTUBE QWEEK 03/28/18 03/28/18 Unknown Gabapentin [Neurontin] 300 mg FEEDTUBE HS 03/28/18 03/28/18 Unknown Haloperidol Decanoate [Haldol 50 mg IM Q4W 03/28/18 03/28/18 Unknown Decanoate] Haloperidol Lactate [Haldol] 0.4 ml IM Q8H PRN 03/28/18 03/28/18 Unknown Ipratropium/Albuterol Sulfate 1 ampul IH Q4HR 03/28/18 03/28/18 Unknown [DUONEB *Not for PRN Use*] Polyethylene Glycol 3350 17 gm FEEDTUBE DAILY PRN 03/28/18 03/28/18 Unknown [Smoothlax] Quetiapine Fumarate [Seroquel] 100 mg FEEDTUBE Q8H 03/28/18 03/28/18 Unknown Scopolamine [Transderm-Scop] 1 each TD Q72H 03/28/18 03/28/18 Unknown Sennosides [Senna Laxative] 17.2 mg FEEDTUBE HS 03/28/18 03/28/18 Unknown lamiVUDine [Lamivudine] 30 ml FEEDTUBE QAM 03/28/18 03/28/18 Unknown Previous Rx's Medication Instructions Recorded Last Taken Type traMADol [Ultram 50 MG tab] 50 mg FEEDTUBE TID #10 tablet 03/31/18 Unknown Rx Bacitracin Zinc Oint [Antibiotic 1 applicatio TP BID #1 tube 08/22/18 Unknown Rx Oint] ALBUTEROL NEB's [Proventil 0.083% 2.5 mg IH Q4HRT PRN nebu 09/01/18 Unknown Rx NEBS] Amoxicillin/K Clav Tab [Augmentin 875 each PO Q12HR #14 tablet 09/01/18 Unknown Rx 875MG TAB] Darunavir [Prezista] 800 mg PO QDAY tablet 09/01/18 Unknown Rx FLUoxetine [Prozac] 40 mg PO QDAY oral.liqd 09/01/18 Unknown Rx Famotidine [Pepcid] 20 mg PO BID tablet 09/01/18 Unknown Rx Levothyroxine [Synthroid] 50 mcg PO DAILY@0600 tablet 09/01/18 Unknown Rx Metoprolol [Lopressor TAB] 12.5 mg PO BID tablet 09/01/18 Unknown Rx Ritonavir [Norvir] 100 mg PO DAILY tab 09/01/18 Unknown Rx Tenofovir [Viread] 300 mg PO QDAY tablet 09/01/18 Unknown Rx Allergies Allergy/AdvReac Type Severity Reaction Status Date / Time No Known Allergies Allergy Verified 08/27/18 10:38 ED Review of Systems ROS: Stated complaint: LETHARGIC Other details as noted in HPI Comment: Unobtainable due to pts medical conditions ED Past Medical Hx - Past Medical History Hx Hypertension: Yes Hx Congestive Heart Failure: No Hx Diabetes: Yes Hx Liver Disease: Yes Hx Asthma: No Hx COPD: No Hx HIV: Yes Additional medical history: 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,insomnia, autoimmune hepatitis, cerebral infarction, urine retention, toxoplasmosis - Surgical History Additional Surgical History: tracheostomy, gatrostomy - Social History Smoking Status: Unknown if ever smoked Other Social History: [facility] resident - Medications Home Medications: Home Medications Medication Instructions Recorded Confirmed Last Taken Type Acetylcysteine 20% Oral [Mucomyst 3 ml INTRATRACH Q6H 03/28/18 03/28/18 Unknown History Oral] Aspirin [Aspirin TAB] 325 mg FEEDTUBE DAILY 03/28/18 03/28/18 Unknown History Atorvastatin Calcium [Lipitor] 20 mg FEEDTUBE HS 10/16/18 10/16/18 Unknown History Bisacodyl [Bisac-Evac] 10 mg RC DAILY PRN 03/28/18 03/28/18 Unknown History Cholecalciferol (Vitamin D3) 2,000 unit FEEDTUBE QAM 03/28/18 03/28/18 Unknown History [Vitamin D3] Docusate Sodium [Move It Along] 100 mg FEEDTUBE Q12H PRN 03/28/18 03/28/18 Unknown History Doxazosin Mesylate [Cardura] 1 mg FEEDTUBE HS 03/28/18 03/28/18 Unknown History Ergocalciferol [Vitamin D2] 1 cap FEEDTUBE QWEEK 03/28/18 03/28/18 Unknown History Gabapentin [Neurontin] 300 mg FEEDTUBE HS 03/28/18 03/28/18 Unknown History Haloperidol Decanoate [Haldol 50 mg IM Q4W 03/28/18 03/28/18 Unknown History Decanoate] Haloperidol Lactate [Haldol] 0.4 ml IM Q8H PRN 03/28/18 03/28/18 Unknown History Ipratropium/Albuterol Sulfate 1 ampul IH Q4HR 03/28/18 03/28/18 Unknown History [DUONEB *Not for PRN Use*] Polyethylene Glycol 3350 17 gm FEEDTUBE DAILY PRN 03/28/18 03/28/18 Unknown History [Smoothlax] Quetiapine Fumarate [Seroquel] 100 mg FEEDTUBE Q8H 03/28/18 03/28/18 Unknown History Scopolamine [Transderm-Scop] 1 each TD Q72H 03/28/18 03/28/18 Unknown History Sennosides [Senna Laxative] 17.2 mg FEEDTUBE HS 03/28/18 03/28/18 Unknown History lamiVUDine [Lamivudine] 30 ml FEEDTUBE QAM 03/28/18 03/28/18 Unknown History traMADol [Ultram 50 MG tab] 50 mg FEEDTUBE TID #10 tablet 03/31/18 Unknown Rx Bacitracin Zinc Oint [Antibiotic 1 applicatio TP BID #1 tube 08/22/18 Unknown Rx Oint] ALBUTEROL NEB's [Proventil 0.083% 2.5 mg IH Q4HRT PRN nebu 09/01/18 Unknown Rx NEBS] Amoxicillin/K Clav Tab [Augmentin 875 each PO Q12HR #14 tablet 09/01/18 Unknown Rx 875MG TAB] Darunavir [Prezista] 800 mg PO QDAY tablet 09/01/18 Unknown Rx FLUoxetine [Prozac] 40 mg PO QDAY oral.liqd 09/01/18 Unknown Rx Famotidine [Pepcid] 20 mg PO BID tablet 09/01/18 Unknown Rx Levothyroxine [Synthroid] 50 mcg PO DAILY@0600 tablet 09/01/18 Unknown Rx Metoprolol [Lopressor TAB] 12.5 mg PO BID tablet 09/01/18 Unknown Rx Ritonavir [Norvir] 100 mg PO DAILY tab 09/01/18 Unknown Rx Tenofovir [Viread] 300 mg PO QDAY tablet 09/01/18 Unknown Rx ED Physical Exam - General Limitations: Altered Mental Status General appearance: lethargic, cachectic - Head Head exam: Present: atraumatic, normocephalic - Eye Eye exam: Absent: scleral icterus - ENT ENT exam: Present: mucous membranes dry - Neck Neck exam: Present: normal inspection. Absent: tenderness, meningismus - Respiratory Respiratory exam: Present: normal lung sounds bilaterally. Absent: respiratory distress - Cardiovascular Cardiovascular Exam: Present: regular rate, normal rhythm. Absent: systolic murmur, diastolic murmur, rubs, gallop - GI/Abdominal GI/Abdominal exam: Present: soft, normal bowel sounds, other (G-tube). Absent: distended, tenderness, guarding, rebound, rigid - Neurological Exam Neurological exam: Present: altered, other (exam appears to be nonfocal but limited) - Psychiatric Psychiatric exam: Present: flat affect - Skin Skin exam: Present: warm, dry ED Course Vital Signs 09/07/18 09/07/18 09/07/18 11:03 11:07 11:09 Temperature 97.6 F 97.6 F Pulse Rate 95 H 95 H Respiratory 18 18 18 Rate Blood Pressure 106/58 Blood Pressure 106/58 [Left] O2 Sat by Pulse 93 95 95 Oximetry - Reevaluation(s) Reevaluation #1: I gave the patient initial fluids, again meropenem and one dose of Kayexalate. I'll leave further care and management to the hospitalists. 09/07/18 13:59 ED Medical Decision Making - Lab Data Result diagrams: 09/07/18 11:14 09/07/18 11:14 Laboratory Results - last 24 hr 09/07/18 09/07/18 09/07/18 11:14 11:14 11:14 VBG pH 7.354 Lactic Acid 2.40 H* Ammonia 44.0 Laboratory Results - last 24 hr 09/07/18 09/07/18 09/07/18 11:14 11:14 11:14 WBC 7.9 RBC 3.73 Hgb 10.4 L Hct 31.3 L MCV 84 MCH 28 MCHC 33 RDW 18.3 H Plt Count 374 Lymph % (Auto) 27.0 [place] % (Auto) 8.0 H Eos % (Auto) 3.2 Baso % (Auto) 0.5 Lymph # 2.1 [place] # 0.6 Eos # 0.2 Baso # 0.0 Seg Neutrophils % 61.3 Seg Neutrophils # 4.8 PT 15.4 H INR 1.15 H APTT 29.5 VBG pH Sodium 137 Potassium 5.6 H Chloride 97.6 L Carbon Dioxide 28 Anion Gap 17 BUN 15 Creatinine 0.7 L Estimated GFR > 60 BUN/Creatinine Ratio 21 Glucose 96 Lactic Acid Calcium 8.6 Magnesium 2.10 Total Bilirubin 0.40 Direct Bilirubin < 0.2 Indirect Bilirubin 0.2 AST 33 ALT 13 Alkaline Phosphatase 107 Ammonia NT-Pro-B Natriuret Pep 142.7 Total Protein 9.1 H Albumin 2.6 L Albumin/Globulin Ratio 0.4 Valproic Acid 09/07/18 09/07/18 09/07/18 11:14 11:14 11:14 WBC RBC Hgb Hct MCV MCH MCHC RDW Plt Count Lymph % (Auto) [place] % (Auto) Eos % (Auto) Baso % (Auto) Lymph # [place] # Eos # Baso # Seg Neutrophils % Seg Neutrophils # PT INR APTT VBG pH 7.354 Sodium Potassium Chloride Carbon Dioxide Anion Gap BUN Creatinine Estimated GFR BUN/Creatinine Ratio Glucose Lactic Acid 2.40 H* Calcium Magnesium Total Bilirubin Direct Bilirubin Indirect Bilirubin AST ALT Alkaline Phosphatase Ammonia 44.0 NT-Pro-B Natriuret Pep Total Protein Albumin Albumin/Globulin Ratio Valproic Acid 09/07/18 11:14 WBC RBC Hgb Hct MCV MCH MCHC RDW Plt Count Lymph % (Auto) [place] % (Auto) Eos % (Auto) Baso % (Auto) Lymph # [place] # Eos # Baso # Seg Neutrophils % Seg Neutrophils # PT INR APTT VBG pH Sodium Potassium Chloride Carbon Dioxide Anion Gap BUN Creatinine Estimated GFR BUN/Creatinine Ratio Glucose Lactic Acid Calcium Magnesium Total Bilirubin Direct Bilirubin Indirect Bilirubin AST ALT Alkaline Phosphatase Ammonia NT-Pro-B Natriuret Pep Total Protein Albumin Albumin/Globulin Ratio Valproic Acid 21.0 L - EKG Data -: EKG Interpreted by Me EKG shows normal: sinus rhythm Rate: normal - EKG Data Interpretation: other (slight diffuse J-point elevation, T-wave is slightly prominent/peaked. Could be consistent with mild hyperkalemia) - Radiology Data Radiology results: report reviewed (mild residual infiltrate in the right lung is noted by the radiologist. The left lung infiltrates have resolved.) CT head no acute process Critical care attestation.: If time is entered above; I have spent that time in minutes in the direct care of this critically ill patient, excluding procedure time. ED Disposition Clinical Impression: Elevated lactic acid level, Hyperkalemia, Volume depletion Altered mental status Qualifiers: Altered mental status type: somnolence Qualified Code(s): R40.0 - Somnolence Pneumonia Qualifiers: Pneumonia type: due to unspecified organism Laterality: right Lung location: unspecified part of lung Qualified Code(s): J18.9 - Pneumonia, unspecified organism Disposition: OP ADMIT IP TO THIS HOSP Is pt being admited?: Yes Does the pt Need Aspirin: Yes Condition: Stable Instructions: Bacterial Pneumonia (ED) Time of Disposition: 14:00
[2018-09-07] MEDS ORDERED: NACL 0.9% 500 ML 500 ML IV ONE (11:00)
--- NOTE | 2018-09-07 12:01 | Cat Scan Report ---
CT HEAD WITHOUT CONTRAST: HISTORY: Altered mental status. TECHNIQUE: Sequential 2.5mm CT images. COMPARISON: 08/22/18. FINDINGS: Cerebral Parenchyma: Mild nonspecific chronic white matter changes are identified. Areas of encephalomalacia of the right frontal lobe, lateral right temporal lobe, right occipital lobe and bilateral thalami are consistent with chronic infarcts. The remaining brain parenchyma is within normal limits. Cerebellum: Large chronic infarct in the inferior left cerebellum measures 4.1 x 3.4 cm. There are also multiple subcentimeter focal infarcts in both cerebellar hemispheres. These findings have not significantly changed. Brainstem: Within normal limits. Ventricles: Normal. Sella: Normal. Extra-axial spaces: Normal. Basal Cisterns: Normal. Intracranial Hemorrhage: None. Midline Shift: None. Calvarium: Normal. Sinuses: Normal. Mastoid Air Cells: Normal. Visualized Orbits: Normal. IMPRESSION: Multiple chronic infarcts as described above which are unchanged since 08/22/18. No acute intracranial process is detected.
--- NOTE | 2018-09-07 12:06 | XRay Report ---
AP CHEST: HISTORY: Possible sepsis Infiltration in the right upper and right lower lobes has nearly resolved since 08/27/18. Infiltration at the left lung base has resolved. The left lung is well-aerated. No pleural effusion or pneumothorax. Normal heart size and pulmonary vessels. IMPRESSION: There is minimal residual infiltrate in the right lung 08/27/18.
[2018-09-07 12:56] LABS: INR 1.15 (0.87-1.13); Partial Thromboplastin Time 29.5 Sec. (24.2-36.6)
[2018-09-07 13:02] LABS: Hematocrit 31.3 % (35.5-45.6); Hemoglobin 10.4 gm/dl (11.8-15.2); Red Blood Count 3.73 M/mm3 (3.65-5.03)
[2018-09-07 13:03] LABS: Basophils % (Auto) 0.5 % (0.0-1.8); Eosinophils # (Auto) 0.2 K/mm3 (0.0-0.4); Eosinophils % (Auto) 3.2 % (0.0-4.3); Lymphocytes # (Auto) 2.1 K/mm3 (1.2-5.4); Mean Corpuscular HGB Conc 33 % (32-34); Mean Corpuscular Volume 84 fl (84-94); Monocytes # (Auto) 0.6 K/mm3 (0.0-0.8); Platelet Count 374 K/mm3 (140-440); Red Cell Distribution Width 18.3 % (13.2-15.2)
[2018-09-07] MEDS ORDERED: MERREM 1,000 MG in NACL 0.9% 100 ML IV ONE (13:25)
[2018-09-07 13:46] LABS: Alanine Aminotransferase 13 units/L (7-56); Albumin 2.6 g/dL (3.9-5); BUN/Creatinine Ratio 21; Bilirubin,Direct < 0.2 mg/dL (0-0.2); Blood Urea Nitrogen 15 mg/dL (9-20); Calcium 8.6 mg/dL (8.4-10.2)
[2018-09-07 13:47] LABS: Hemolysis Index 72
[2018-09-07] MEDS ORDERED: KIONEX PO ONE (13:57)
[2018-09-07] MEDS ORDERED: BABY ASPIRIN PO ONE (14:00)
[2018-09-07] MEDS ORDERED: BABY ASPIRIN ONE (15:05)
[2018-09-07] MEDS ORDERED: CALCIUM GLUCONATE 2,000 MG in NACL 0.9% 100 ML IV ONE (15:30)
[2018-09-07] MEDS ORDERED: ATIVAN IV ONE (15:44)
[2018-09-07] MEDS ORDERED: ATIVAN ONE (15:48)
[2018-09-07 16:33] LABS: Bilirubin,Urine NEG (Negative); Blood,Urine SM (Negative); Color,Urine Amber (Yellow); Hyaline Casts,Urine 6 /LPF; Mucus,Urine FEW /HPF
[2018-09-07 16:58] LABS: BUN/Creatinine Ratio 23; Blood Urea Nitrogen 14 mg/dL (9-20); Calcium 9.4 mg/dL (8.4-10.2); Hemolysis Index 3
--- NOTE | 2018-09-07 17:49 | Event Note ---
Date: 09/07/18 Sent for altered sensorium, Recently discharged on August 27 2018 after being treated for Pneumonia- Bilateral CXR shows Infiltration in the right upper and right lower lobes has nearly resolved since 08/27/18. Infiltration at the left lung base has resolved. The left lung is well-aerated. No pleural effusion or pneumothorax. Normal heart size and pulmonary vessels. IMPRESSION: There is minimal residual infiltrate in the right lung 08/27/18. Pneumonia resolving Hyperkalemia -Corrected Lactic acid --elevated -nonspecific --Repeat lactic acid level --normal level without antibiotics
[2018-09-07 19:55] VITALS: BP 109/66
== END 2018-09-07 19:00 | DRG 974 ==
LOC: ED 10:32 → 4A 14:01
PROVIDERS: ADMIT Internal Medicine; ATTEND Internal Medicine
DX: B20 Human immunodeficiency virus [HIV] disease (principal); J18.9 Pneumonia, unspecified organism; J96.01 Acute respiratory failure with hypoxia; E86.9 Volume depletion, unspecified; I10 Essential (primary) hypertension; E87.5 Hyperkalemia; E11.9 Type 2 diabetes mellitus without complications; Z79.899 Other long term (current) drug therapy; Z93.1 Gastrostomy status
CPT/HCPCS: 36415; 70450; 71045; 80048; 80076; 80164; 81001; 82140; 82805; 83735; 83880; 85025; 85610; 85730; 86850; 86900; 86901; 87040; 93005; 93010; 96374; 96375; G0378; J0610; J2060; J2185; J7040

== ENCOUNTER 2018-10-14 22:54 | Inpatient (IN) | payer MEDICAID ==
[2018-10-14] MEDS ORDERED: NACL 0.9% 1000 ML IV ONE (23:06)
[2018-10-14] MEDS ORDERED: TYLENOL PR ONE (23:11)
[2018-10-14] MEDS ORDERED: NACL 0.9% 1000 ML 1,000 ML IV ONE (23:11)
[2018-10-14] MEDS ORDERED: MAXIPIME/NS 2 GM/100 ML 2 GM/100 ML BAG IV SCH (23:45)
[2018-10-15 00:05] LABS: Albumin 1.9 g/dL (3.9-5); Calcium 8.7 mg/dL (8.4-10.2)
--- NOTE | 2018-10-15 00:24 | XRay Report ---
PROCEDURE: Chest. TECHNIQUE: Portable AP view. HISTORY: Rapid breathing. COMPARISONS: Chest 09/07/2018. Dictation not available. FINDINGS: The patient is rotated to the right. The heart size is normal. The left lung is clear and perhaps mil dly hyperinflated. There is some hazy opacity in the right midlung. Early pneumonia is not excluded. There are no pleural effusions. The soft tissues are unremarkable. Median sternotomy wires are presen t. A gastrostomy tube is present. There is a somewhat nodular opacity projected through the gastric a ir bubble. This opacity measures approximately 2.2 cm in diameter. This could represent a very low no dule in the left lower lobe. Further evaluation with PA and lateral radiographs would be useful. IMPRESSION: Probable COPD. Question early right mid lung pneumonia. Possible nodule in the left lower lobe as dis cussed above. This document is electronically signed by Melo Gordon MD., Oct 15 2018 12:22:20 AM ET
[2018-10-15 00:26] LABS: Hemoglobin 10.2 gm/dl (11.8-15.2); Mean Corpuscular HGB Conc 32 % (32-34); Mean Corpuscular Volume 86 fl (84-94); Platelet Count 100 K/mm3 (140-440); Red Blood Count 3.72 M/mm3 (3.65-5.03); Red Cell Distribution Width 18.9 % (13.2-15.2)
[2018-10-15] MEDS ORDERED: VANCOMYCIN 1,000 MG in NACL 0.9% 500 ML 500 ML IV ONE (00:37)
[2018-10-15] MEDS ORDERED: VANCOMYCIN PHARMACY TO DOSE IV SCH (01:00)
[2018-10-15] MEDS ORDERED: VANCOMYCIN/NS 1 GM/250 ML 1 GM/250 ML BAG IV ONE (01:00)
--- NOTE | 2018-10-15 01:41 | Emergency Department Report ---
ED General Adult HPI - General Chief complaint: Fever Stated complaint: AMS Time Seen by Provider: 10/14/18 22:59 Source: EMS Mode of arrival: Stretcher Limitations: Altered Mental Status, Physical Limitation - History of Present Illness Initial comments: Patient is a 58-year-old -Malagasy male who has a past History of HIV AIDS as well as toxoplasmosis, CVA with residual deficit, status post trach reversal which was done secondary originally secondary to respiratory failure, syphilitic encephalopathy and a history of cocaine abuse who is cu rrently a resident at [facility]. Patient was sent in because of some respiratory failure. Paramedics state that when they arrived patient was poorly responsive. group home staff state that the patient although poorly verbal normally is very feisty and today he was very lethargic. Patient is has a rapid heart rate and rapid breathing. Patient noted on arrival to be febrile. Patient is unable to give any additional history. Severity scale (0 -10): 1 - Related Data Home Medications Medication Instructions Recorded Confirmed Last Taken Acetylcysteine 20% Oral [Mucomyst 3 ml INTRATRACH Q6H 03/28/18 03/28/18 Unknown Oral] Aspirin [Aspirin TAB] 325 mg FEEDTUBE DAILY 03/28/18 03/28/18 Unknown Atorvastatin Calcium [Lipitor] 20 mg FEEDTUBE HS 03/28/18 03/28/18 Unknown Bisacodyl [Bisac-Evac] 10 mg RC DAILY PRN 03/28/18 03/28/18 Unknown Cholecalciferol (Vitamin D3) 2,000 unit FEEDTUBE QAM 03/28/18 03/28/18 Unknown [Vitamin D3] Docusate Sodium [Move It Along] 100 mg FEEDTUBE Q12H PRN 03/28/18 03/28/18 Unknown Doxazosin Mesylate [Cardura] 1 mg FEEDTUBE HS 03/28/18 03/28/18 Unknown Ergocalciferol [Vitamin D2] 1 cap FEEDTUBE QWEEK 03/28/18 03/28/18 Unknown Gabapentin [Neurontin] 300 mg FEEDTUBE HS 03/28/18 03/28/18 Unknown Haloperidol Decanoate [Haldol 50 mg IM Q4W 03/28/18 03/28/18 Unknown Decanoate] Haloperidol Lactate [Haldol] 0.4 ml IM Q8H PRN 03/28/18 03/28/18 Unknown Ipratropium/Albuterol Sulfate 1 ampul IH Q4HR 03/28/18 03/28/18 Unknown [DUONEB *Not for PRN Use*] Polyethylene Glycol 3350 17 gm FEEDTUBE DAILY PRN 03/28/18 03/28/18 Unknown [Smoothlax] Quetiapine Fumarate [Seroquel] 100 mg FEEDTUBE Q8H 03/28/18 03/28/18 Unknown Scopolamine [Transderm-Scop] 1 each TD Q72H 03/28/18 03/28/18 Unknown Sennosides [Senna Laxative] 17.2 mg FEEDTUBE HS 03/28/18 03/28/18 Unknown lamiVUDine [Lamivudine] 30 ml FEEDTUBE QAM 03/28/18 03/28/18 Unknown Previous Rx's Medication Instructions Recorded Last Taken Type traMADol [Ultram 50 MG tab] 50 mg FEEDTUBE TID #10 tablet 03/31/18 Unknown Rx Bacitracin Zinc Oint [Antibiotic 1 applicatio TP BID #1 tube 08/22/18 Unknown Rx Oint] ALBUTEROL NEB's [Proventil 0.083% 2.5 mg IH Q4HRT PRN nebu 09/01/18 Unknown Rx NEBS] Amoxicillin/K Clav Tab [Augmentin 875 each PO Q12HR #14 tablet 09/01/18 Unknown Rx 875MG TAB] Darunavir [Prezista] 800 mg PO QDAY tablet 09/01/18 Unknown Rx FLUoxetine [Prozac] 40 mg PO QDAY oral.liqd 09/01/18 Unknown Rx Famotidine [Pepcid] 20 mg PO BID tablet 09/01/18 Unknown Rx Levothyroxine [Synthroid] 50 mcg PO DAILY@0600 tablet 09/01/18 Unknown Rx Metoprolol [Lopressor TAB] 12.5 mg PO BID tablet 09/01/18 Unknown Rx Ritonavir [Norvir] 100 mg PO DAILY tab 09/01/18 Unknown Rx Tenofovir [Viread] 300 mg PO QDAY tablet 09/01/18 Unknown Rx Allergies Allergy/AdvReac Type Severity Reaction Status Date / Time No Known Allergies Allergy Verified 08/27/18 10:38 ED Review of Systems ROS: Stated complaint: AMS Other details as noted in HPI Comment: Unobtainable due to pts medical conditions ED Past Medical Hx - Past Medical History Previous Medical History?: Yes Hx Hypertension: Yes Hx Congestive Heart Failure: No Hx Diabetes: Yes Hx Liver Disease: Yes Hx Asthma: No Hx COPD: No Hx HIV: Yes Additional medical history: 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,insomnia, autoimmune hepatitis, cerebral infarction, urine retention, toxoplasmosis - Surgical History Past Surgical History?: Yes Additional Surgical History: tracheostomy, gatrostomy - Social History Smoking Status: Unknown if ever smoked - Medications Home Medications: Home Medications Medication Instructions Recorded Confirmed Last Taken Type Acetylcysteine 20% Oral [Mucomyst 3 ml INTRATRACH Q6H 03/28/18 03/28/18 Unknown History Oral] Aspirin [Aspirin TAB] 325 mg FEEDTUBE DAILY 03/28/18 03/28/18 Unknown History Atorvastatin Calcium [Lipitor] 20 mg FEEDTUBE HS 03/28/18 03/28/18 Unknown History Bisacodyl [Bisac-Evac] 10 mg RC DAILY PRN 03/28/18 03/28/18 Unknown History Cholecalciferol (Vitamin D3) 2,000 unit FEEDTUBE QAM 03/28/18 03/28/18 Unknown History [Vitamin D3] Docusate Sodium [Move It Along] 100 mg FEEDTUBE Q12H PRN 03/28/18 03/28/18 Unknown History Doxazosin Mesylate [Cardura] 1 mg FEEDTUBE HS 03/28/18 03/28/18 Unknown History Ergocalciferol [Vitamin D2] 1 cap FEEDTUBE QWEEK 03/28/18 03/28/18 Unknown History Gabapentin [Neurontin] 300 mg FEEDTUBE HS 03/28/18 03/28/18 Unknown History Haloperidol Decanoate [Haldol 50 mg IM Q4W 03/28/18 03/28/18 Unknown History Decanoate] Haloperidol Lactate [Haldol] 0.4 ml IM Q8H PRN 03/28/18 03/28/18 Unknown History Ipratropium/Albuterol Sulfate 1 ampul IH Q4HR 03/28/18 03/28/18 Unknown History [DUONEB *Not for PRN Use*] Polyethylene Glycol 3350 17 gm FEEDTUBE DAILY PRN 03/28/18 03/28/18 Unknown History [Smoothlax] Quetiapine Fumarate [Seroquel] 100 mg FEEDTUBE Q8H 03/28/18 03/28/18 Unknown History Scopolamine [Transderm-Scop] 1 each TD Q72H 03/28/18 03/28/18 Unknown History Sennosides [Senna Laxative] 17.2 mg FEEDTUBE HS 03/28/18 03/28/18 Unknown History lamiVUDine [Lamivudine] 30 ml FEEDTUBE QAM 03/28/18 03/28/18 Unknown History traMADol [Ultram 50 MG tab] 50 mg FEEDTUBE TID #10 tablet 03/31/18 Unknown Rx Bacitracin Zinc Oint [Antibiotic 1 applicatio TP BID #1 tube 08/22/18 Unknown Rx Oint] ALBUTEROL NEB's [Proventil 0.083% 2.5 mg IH Q4HRT PRN nebu 09/01/18 Unknown Rx NEBS] Amoxicillin/K Clav Tab [Augmentin 875 each PO Q12HR #14 tablet 09/01/18 Unknown Rx 875MG TAB] Darunavir [Prezista] 800 mg PO QDAY tablet 09/01/18 Unknown Rx FLUoxetine [Prozac] 40 mg PO QDAY oral.liqd 09/01/18 Unknown Rx Famotidine [Pepcid] 20 mg PO BID tablet 09/01/18 Unknown Rx Levothyroxine [Synthroid] 50 mcg PO DAILY@0600 tablet 09/01/18 Unknown Rx Metoprolol [Lopressor TAB] 12.5 mg PO BID tablet 09/01/18 Unknown Rx Ritonavir [Norvir] 100 mg PO DAILY tab 09/01/18 Unknown Rx Tenofovir [Viread] 300 mg PO QDAY tablet 09/01/18 Unknown Rx ED Physical Exam - General Limitations: Altered Mental Status, Physical Limitation General appearance: in no apparent distress, lethargic - Head Head exam: Present: atraumatic, normocephalic, other - Eye Eye exam: Present: normal appearance, PERRL (cachectic) - ENT ENT exam: Present: mucous membranes moist - Neck Neck exam: Present: normal inspection - Respiratory Respiratory exam: Present: normal lung sounds bilaterally, respiratory distress, rhonchi, other (tachypnea to the mid 30s). Absent: wheezes, rales, stridor - Cardiovascular Cardiovascular Exam: Present: normal rhythm, tachycardia. Absent: systolic murmur, diastolic murmur, rubs, gallop - GI/Abdominal GI/Abdominal exam: Present: soft, normal bowel sounds, other (scaphoid abdomen with a G-tube in place). Absent: guarding - Rectal Rectal exam: Present: deferred - Extremities Exam Extremities exam: Present: normal inspection - Back Exam Back exam: Present: normal inspection - Neurological Exam Neurological exam: Present: alert, oriented X3 - Psychiatric Psychiatric exam: Present: normal affect, normal mood - Skin Skin exam: Present: warm, dry, intact, normal color. Absent: rash ED Course Vital Signs 10/14/18 10/14/18 10/14/18 22:59 23:01 23:14 Temperature 101.6 F H Pulse Rate 111 H 112 H Respiratory 16 25 H Rate Blood Pressure 78/46 O2 Sat by Pulse 89 98 98 Oximetry 10/14/18 10/14/18 10/14/18 23:15 23:30 23:42 Temperature Pulse Rate 104 H 99 H Respiratory 37 H 35 H Rate Blood Pressure 79/45 70/42 O2 Sat by Pulse 96 95 Oximetry 10/14/18 10/14/18 10/15/18 23:45 23:51 00:00 Temperature Pulse Rate 96 H 97 H 99 H Respiratory 38 H 40 H 31 H Rate Blood Pressure 80/48 80/48 89/53 O2 Sat by Pulse 64 L 54 L Oximetry 10/15/18 10/15/18 10/15/18 00:15 00:30 00:45 Temperature Pulse Rate 99 H 102 H 101 H Respiratory 35 H 44 H 39 H Rate Blood Pressure 83/46 89/53 90/48 O2 Sat by Pulse 88 Oximetry 10/15/18 00:52 Temperature Pulse Rate 106 H Respiratory Rate Blood Pressure O2 Sat by Pulse Oximetry ED Medical Decision Making - Lab Data Result diagrams: 10/14/18 23:21 10/14/18 23:21 Lab Results 10/14/18 10/14/18 10/14/18 Range/Units 23:21 23:21 23:21 WBC 5.1 (4.5-11.0) K/mm3 RBC 3.72 (3.65-5.03) M/mm3 Hgb 10.2 L (11.8-15.2) gm/dl Hct 32.0 L (35.5-45.6) % MCV 86 (84-94) fl MCH 28 (28-32) pg MCHC 32 (32-34) % RDW 18.9 H (13.2-15.2) % Plt Count 100 L (140-440) K/mm3 Lymph % (Auto) Veterinary Technician Instructor Faulk % (Auto) Veterinary Technician Instructor Eos % (Auto) Veterinary Technician Instructor Baso % (Auto) Veterinary Technician Instructor Lymph # Veterinary Technician Instructor Faulk # Veterinary Technician Instructor Eos # Veterinary Technician Instructor Baso # Veterinary Technician Instructor Seg Neutrophils % Veterinary Technician Instructor Seg Neutrophils # Veterinary Technician Instructor Sodium 156 H (137-145) mmol/L Potassium 4.1 (3.6-5.0) mmol/L Chloride 117.8 H (98-107) mmol/L Carbon Dioxide 19 L (22-30) mmol/L Anion Gap 23 mmol/L BUN 124 H (9-20) mg/dL Creatinine 4.8 H (0.8-1.5) mg/dL Estimated GFR 15 ml/min BUN/Creatinine Ratio 26 % Glucose 98 (75-100) mg/dL Lactic Acid 4.90 H* (0.7-2.0) mmol/L Calcium 8.7 (8.4-10.2) mg/dL Total Bilirubin 0.30 (0.1-1.2) mg/dL AST 72 H (5-40) units/L ALT 24 (7-56) units/L Alkaline Phosphatase 69 (35-129) units/L Troponin T 0.034 H (0.00-0.029) ng/mL Total Protein 7.5 (6.3-8.2) g/dL Albumin 1.9 L (3.9-5) g/dL Albumin/Globulin Ratio 0.3 % 10/15/18 Range/Units 00:50 WBC (4.5-11.0) K/mm3 RBC (3.65-5.03) M/mm3 Hgb (11.8-15.2) gm/dl Hct (35.5-45.6) % MCV (84-94) fl MCH (28-32) pg MCHC (32-34) % RDW (13.2-15.2) % Plt Count (140-440) K/mm3 Lymph % (Auto) Faulk % (Auto) Eos % (Auto) Baso % (Auto) Lymph # Faulk # Eos # Baso # Seg Neutrophils % Seg Neutrophils # Sodium (137-145) mmol/L Potassium (3.6-5.0) mmol/L Chloride (98-107) mmol/L Carbon Dioxide (22-30) mmol/L Anion Gap mmol/L BUN (9-20) mg/dL Creatinine (0.8-1.5) mg/dL Estimated GFR ml/min BUN/Creatinine Ratio % Glucose (75-100) mg/dL Lactic Acid 3.30 H* (0.7-2.0) mmol/L Calcium (8.4-10.2) mg/dL Total Bilirubin (0.1-1.2) mg/dL AST (5-40) units/L ALT (7-56) units/L Alkaline Phosphatase (35-129) units/L Troponin T (0.00-0.029) ng/mL Total Protein (6.3-8.2) g/dL Albumin (3.9-5) g/dL Albumin/Globulin Ratio % Patient's previous BUN/creatinine is 14 and 0.6 respectively 2 months ago. - EKG Data -: EKG Interpreted by [facility] EKG shows normal: sinus rhythm, axis, intervals, QRS complexes, ST-T waves Rate: tachycardia - Radiology Data Radiology results: report reviewed (patient with a right midlung pneumonia as well as COPD changes) - Medical Decision Making On arrival the patient's blood pressure had a systolic blood pressure of 70. Patient was responsive show very minimal reaction to pain. Decision was made to place an IO in the right tibia. Patient withdrew the pain is slightly. Patient was given 3 L of normal saline which did improve the blood pressure up to 96 systolic. IV fluids will be continued. Patient's lactic acid also was greater than 4 was supported a much more aggressive IV bolus. Patient's chest x-ray shows the patient has a right middle lobe pneumonia patient also is in acute renal failure as well. Patient does meet sepsis criteria. Patient will be admitted to the hospitalist service for further care. Critical Care Time: Yes (30) Critical care attestation.: If time is entered above; I have spent that time in minutes in the direct care of this critically ill patient, excluding procedure time. ED Disposition Clinical Impression: HCAP (healthcare-associated pneumonia), HIV (human immunodeficiency virus infection), Feeding by G-tube, Encephalopathy, Hypernatremia, Hyperchloremia Disposition: DC-[id number] OP ADMIT IP TO THIS HOSP Is pt being admited?: Yes Does the pt Need Aspirin: No Condition: Stable Time of Disposition: 01:45
[2018-10-15 01:46] LABS: Amorphous Crystals,Urine 3+; Bilirubin,Urine NEG (Negative); Blood,Urine LG (Negative); Color,Urine Amber (Yellow); Granular Casts,Urine 2 /LPF; Hyaline Casts,Urine 4 /LPF
[2018-10-15 01:51] LABS: Mucus,Urine 1+ /HPF
[2018-10-15 02:11] LABS: Chol/HDL Ratio 2.1 %
[2018-10-15 02:52] LABS: Anisocytosis 1+; Band Neutrophils # (Manual) 2.3 K/mm3; Basophils % (Manual) 0 % (0.0-1.8); Dohle Bodies Few; Eosinophils % (Manual) 0 % (0.0-4.3); Large Platelets Few; Platelet Estimate Consistent w Auto; Total Cells Counted 100
[2018-10-15] MEDS ORDERED: SODIUM CHLORIDE FLUSH SYRINGE 10 ML IV PRN (03:28)
[2018-10-15] MEDS ORDERED: MORPHINE IV PRN (03:28)
[2018-10-15] MEDS ORDERED: ZOFRAN IV PRN (03:28)
[2018-10-15] MEDS ORDERED: TYLENOL PO PRN (03:28)
--- NOTE | 2018-10-15 03:42 | History and Physical Report ---
<RYLAND ENCARNACION - Last Filed: 10/15/18 05:03> History of Present Illness Date of examination: 10/15/18 Date of admission: 10/15/18 02:00 Chief complaint: Altered mental status History of present illness: Patient is a 58-year-old male with PMHx of HIV/AIDS (viral load and CD4 unknown), toxoplasmosis, CVA with residual deficit, syphilitic encephalopathy, respiratory failure s/p trach reversal and cocaine abuse who was brought to the ER by EMS from [facility]. Per alf report patient was lethargic today with respiratory failure. Patient arrived to the ER in a position, he had bilateral lower extremities contracture due to CVA, he was unresponsive and unable to provide medical history, the history was obtained by ER physician. In the ER his H&H was 10.2 &32.0 his sodium was 156, BUN/creatinine was 124/4.8, patient had a chest x-ray which showed probable COPD, question new right mid lung pneumonia and possible left lower lobe nodule. Patient is admitted for treatment of his presenting symptoms. Past History Past Medical History: COPD, HIV/AIDS, renal failure, other (HIV/AIDS) Past Surgical History: No surgical history Social history: other (cocaine abuse) Family history: no significant family history Medications and Allergies Allergies Allergy/AdvReac Type Severity Reaction Status Date / Time No Known Allergies Allergy Verified 08/27/18 10:38 Home Medications Medication Instructions Recorded Confirmed Last Taken Type Acetylcysteine 20% Oral [Mucomyst 3 ml INTRATRACH Q6H 03/28/18 10/24/18 Unknown History Oral] Aspirin [Aspirin TAB] 325 mg FEEDTUBE DAILY 03/28/18 10/24/18 Unknown History Atorvastatin Calcium [Lipitor] 20 mg FEEDTUBE HS 03/28/18 10/24/18 Unknown History Bisacodyl [Bisac-Evac] 10 mg RC DAILY PRN 03/28/18 10/24/18 Unknown History Cholecalciferol (Vitamin D3) 2,000 unit FEEDTUBE QAM 03/28/18 10/24/18 Unknown History [Vitamin D3] Docusate Sodium [Move It Along] 100 mg FEEDTUBE Q12H PRN 03/28/18 10/24/18 Unknown History Doxazosin Mesylate [Cardura] 1 mg FEEDTUBE HS 03/28/18 10/24/18 Unknown History Ergocalciferol [Vitamin D2] 1 cap FEEDTUBE QWEEK 03/28/18 10/24/18 Unknown History Gabapentin [Neurontin] 300 mg FEEDTUBE HS 03/28/18 10/24/18 Unknown History Haloperidol Decanoate [Haldol 50 mg IM Q4W 03/28/18 10/24/18 Unknown History Decanoate] Haloperidol Lactate [Haldol] 0.4 ml IM Q8H PRN 03/28/18 10/24/18 Unknown History Ipratropium/Albuterol Sulfate 1 ampul IH Q4HR 03/28/18 10/24/18 Unknown History [DUONEB *Not for PRN Use*] Polyethylene Glycol 3350 17 gm FEEDTUBE DAILY PRN 03/28/18 10/24/18 Unknown Hi story [Smoothlax] Quetiapine Fumarate [Seroquel] 100 mg FEEDTUBE Q8H 03/28/18 10/24/18 Unknown History Scopolamine [Transderm-Scop] 1 each TD Q72H 03/28/18 10/24/18 Unknown History Sennosides [Senna Laxative] 17.2 mg FEEDTUBE HS 03/28/18 10/24/18 Unknown History lamiVUDine [Lamivudine] 30 ml FEEDTUBE QAM 03/28/18 10/24/18 Unknown History traMADol [Ultram 50 MG tab] 50 mg FEEDTUBE TID #10 tablet 03/31/18 10/24/18 Unknown Rx Bacitracin Zinc Oint [Antibiotic 1 applicatio TP BID #1 tube 08/22/18 10/24/18 Unknown Rx Oint] ALBUTEROL NEB's [Proventil 0.083% 2.5 mg IH Q4HRT PRN nebu 09/01/18 10/24/18 Unknown Rx NEBS] Amoxicillin/K Clav Tab [Augmentin 875 each PO Q12HR #14 tablet 09/01/18 10/24/18 Unknown Rx 875MG TAB] Darunavir [Prezista] 800 mg PO QDAY tablet 09/01/18 10/24/18 Unknown Rx FLUoxetine [Prozac] 40 mg PO QDAY oral.liqd 09/01/18 10/24/18 Unknown Rx Famotidine [Pepcid] 20 mg PO BID tablet 09/01/18 10/24/18 Unknown Rx Levothyroxine [Synthroid] 50 mcg PO DAILY@0600 tablet 09/01/18 10/24/18 Unknown Rx Metoprolol [Lopressor TAB] 12.5 mg PO BID tablet 09/01/18 10/24/18 Unknown Rx Ritonavir [Norvir] 100 mg PO DAILY tab 09/01/18 10/24/18 Unknown Rx Tenofovir [Viread] 300 mg PO QDAY tablet 09/01/18 10/24/18 Unknown Rx Active Meds: Active Medications Acetaminophen (Tylenol) 650 mg PO Q4H PRN PRN Reason: Pain MILD(1-3)/Fever >100.5/DELGADO Enoxaparin Sodium (Lovenox) 30 mg SUB-Q QDAY BLOSSOM Famotidine (Pepcid) 20 mg IV BID BLOSSOM Cefepime HCl (Maxipime/Ns 2 Gm/100 Ml) 2 gm in 100 mls @ 200 mls/hr IV Q24HR BLOSSOM; Protocol Dextrose/Sodium Chloride (D5/0.45ns) 1,000 mls @ 75 mls/hr IV DIRECT BLOSSOM Morphine Sulfate (Morphine) 2 mg IV Q4H PRN PRN Reason: Pain, Moderate (4-6) Ondansetron HCl (Zofran) 4 mg IV Q8H PRN PRN Reason: Nausea And Vomiting Sodium Chloride (Sodium Chloride Flush Syringe 10 Ml) 10 ml IV BID BLOSSOM Review of Systems ROS unobtainable: due to mental status Exam - Constitutional Vitals: Temp Pulse Resp BP Pulse Ox 101.6 F H 97 H 41 H 97/61 100 10/14/18 23:14 10/15/18 02:45 10/15/18 02:45 10/15/18 02:45 10/15/18 02:30 General appearance: Present: severe distress, cachectic - Respiratory Respiratory effort: other (shallow breathing) Respiratory: bilateral: diminished - Cardiovascular Rhythm: regular Heart Sounds: Present: S1 & S2 - Extremities Extremities: no ischemia, No edema, abnormal (contracted) Peripheral Pulses: abnormal - Abdominal General gastrointestinal: Present: soft, distended, normal bowel sounds Male genitourinary: Present: deferred - Rectal Rectal Exam: deferred - Integumentary Integumentary: Present: dry - Musculoskeletal Musculoskeletal: generalized weakness - Psychiatric Psychiatric: cooperative - Neurologic Neurologic: focal deficits, moves all extremities Results - Labs CBC & Chem 7: 10/14/18 23:21 10/14/18 23:21 Labs: Laboratory Last Values WBC 5.1 K/mm3 (4.5-11.0) 10/14/18 23:21 RBC 3.72 M/mm3 (3.65-5.03) 10/14/18 23:21 Hgb 10.2 gm/dl (11.8-15.2) L 10/14/18 23:21 Hct 32.0 % (35.5-45.6) L 10/14/18 23:21 MCV 86 fl (84-94) 10/14/18 23:21 MCH 28 pg (28-32) 10/14/18 23:21 MCHC 32 % (32-34) 10/14/18 23:21 RDW 18.9 % (13.2-15.2) H 10/14/18 23:21 Plt Count 100 K/mm3 (140-440) L 10/14/18 23:21 Lymph % (Auto) [employer]ader 10/14/18 23:21 Luna % (Auto) [employer] 10/14/18 23:21 Eos % (Auto) [employer] 10/14/18 23:21 Baso % (Auto) [employer] 10/14/18 23:21 Lymph # [employer] 10/14/18 23:21 Luna # [employer] Trader 10/14/18 23:21 Eos # [employer] Trader 10/14/18 23:21 Baso # [employer] Trader 10/14/18 23:21 Add Manual Diff Complete 10/14/18 23:21 Total Counted 100 10/14/18 23:21 Seg Neutrophils % [employer]ader 10/14/18 23:21 Seg Neuts % (Manual) 34.0 % (40.0-70.0) L 10/14/18 23:21 Band Neutrophils % 45.0 % 10/14/18 23:21 Lymphocytes % (Manual) 16.0 % (13.4-35.0) 10/14/18 23:21 Reactive Lymphs % (Man) 0 % 10/14/18 23:21 Monocytes % (Manual) 5.0 % (0.0-7.3) 10/14/18 23:21 Eosinophils % (Manual) 0 % (0.0-4.3) 10/14/18 23:21 Basophils % (Manual) 0 % (0.0-1.8) 10/14/18 23:21 Metamyelocytes % 0 % 10/14/18 23:21 Myelocytes % 0 % 10/14/18 23:21 Promyelocytes % 0 % 10/14/18 23:21 Blast Cells % 0 % 10/14/18 23:21 Nucleated RBC % Not Reportable 10/14/18 23:21 Seg Neutrophils # Commod[employer] Trader 10/14/18 23:21 Seg Neutrophils # Man 1.7 K/mm3 (1.8-7.7) L 10/14/18 23:21 Band Neutrophils # 2.3 K/mm3 10/14/18 23:21 Lymphocytes # (Manual) 0.8 K/mm3 (1.2-5.4) L 10/14/18 23:21 Abs React Lymphs (Man) 0.0 K/mm3 10/14/18 23:21 Monocytes # (Manual) 0.3 K/mm3 (0.0-0.8) 10/14/18 23:21 Eosinophils # (Manual) 0.0 K/mm3 (0.0-0.4) 10/14/18 23:21 Basophils # (Manual) 0.0 K/mm3 (0.0-0.1) 10/14/18 23:21 Metamyelocytes # 0.0 K/mm3 10/14/18 23:21 Myelocytes # 0.0 K/mm3 10/14/18 23:21 Promyelocytes # 0.0 K/mm3 10/14/18 23:21 Blast Cells # 0.0 K/mm3 10/14/18 23:21 WBC Morphology Not Reportable 10/14/18 23:21 Hypersegmented Neuts Not Reportable 10/14/18 23:21 Hyposegmented Neuts Not Reportable 10/14/18 23:21 Hypogranular Neuts Not Reportable 10/14/18 23:21 Smudge Cells Not Reportable 10/14/18 23:21 Toxic Granulation Not Reportable 10/14/18 23:21 Toxic Vacuolation Not Reportable 10/14/18 23:21 Dohle Bodies Few 10/14/18 23:21 Pelger-Huet Anomaly Not Reportable 10/14/18 23:21 Barry Rods Not Reportable 10/14/18 23:21 Platelet Estimate Consistent w auto 10/14/18 23:21 Clumped Platelets Not Reportable 10/14/18 23:21 Plt Clumps, EDTA Not Reportable 10/14/18 23:21 Large Platelets Few 10/14/18 23:21 Giant Platelets Not Reportable 10/14/18 23:21 Platelet Satelliting Not Reportable 10/14/18 23:21 Plt Morphology Comment Not Reportable 10/14/18 23:21 RBC Morphology Not Reportable 10/14/18 23:21 Dimorphic RBCs Not Reportable 10/14/18 23:21 Polychromasia Not Reportable 10/14/18 23:21 Hypochromasia Not Reportable 10/14/18 23:21 Poikilocytosis Not Reportable 10/14/18 23:21 Anisocytosis 1+ 10/14/18 23:21 Microcytosis Not Reportable 10/14/18 23:21 Macrocytosis Not Reportable 10/14/18 23:21 Spherocytes Not Reportable 10/14/18 23:21 Pappenheimer Bodies Not Reportable 10/14/18 23:21 Sickle Cells Not Reportable 10/14/18 23:21 Target Cells Not Reportable 10/14/18 23:21 Tear Drop Cells Not Reportable 10/14/18 23:21 Ovalocytes Not Reportable 10/14/18 23:21 Helmet Cells Not Reportable 10/14/18 23:21 Villar[place] Bodies Not Reportable 10/14/18 23:21 Lecompte Rings Not Reportable 10/14/18 23:21 Darlene Cells Not Reportable 10/14/18 23:21 Bite Cells Not Reportable 10/14/18 23:21 Crenated Cell Not Reportable 10/14/18 23:21 Elliptocytes Not Reportable 10/14/18 23:21 Acanthocytes (Spur) Not Reportable 10/14/18 23:21 Rouleaux Not Reportable 10/14/18 23:21 Hemoglobin C Crystals Not Reportable 10/14/18 23:21 Schistocytes Not Reportable 10/14/18 23:21 Malaria parasites Not Reportable 10/14/18 23:21 Mahendra Bodies Not Reportable 10/14/18 23:21 Hem Pathologist Commnt No 10/14/18 23:21 Sodium 156 mmol/L (137-145) H 10/14/18 23:21 Potassium 4.1 mmol/L (3.6-5.0) 10/14/18 23:21 Chloride 117.8 mmol/L (98-107) H 10/14/18 23:21 Carbon Dioxide 19 mmol/L (22-30) L 10/14/18 23:21 Anion Gap 23 mmol/L 10/14/18 23:21 BUN 124 mg/dL (9-20) H 10/14/18 23:21 Creatinine 4.8 mg/dL (0.8-1.5) H 10/14/18 23:21 Estimated GFR 15 ml/min 10/14/18 23:21 BUN/Creatinine Ratio 26 % 10/14/18 23:21 Glucose 98 mg/dL (75-100) 10/14/18 23:21 Lactic Acid 3.30 mmol/L (0.7-2.0) H* 10/15/18 00:50 Calcium 8.7 mg/dL (8.4-10.2) 10/14/18 23:21 Total Bilirubin 0.30 mg/dL (0.1-1.2) 10/14/18 23:21 AST 72 units/L (5-40) H 10/14/18 23:21 ALT 24 units/L (7-56) 10/14/18 23:21 Alkaline Phosphatase 69 units/L (35-129) 10/14/18 23:21 Troponin T 0.034 ng/mL (0.00-0.029) H 10/14/18 23:21 Total Protein 7.5 g/dL (6.3-8.2) 10/14/18 23:21 Albumin 1.9 g/dL (3.9-5) L 10/14/18 23:21 Albumin/Globulin Ratio 0.3 % 10/14/18 23:21 Triglycerides 63 mg/dL (2-149) 10/14/18 23:21 Cholesterol 59 mg/dL (50-199) 10/14/18 23:21 LDL Cholesterol Direct 13 mg/dL (50-130) L 10/14/18 23:21 HDL Cholesterol 28 mg/dL (40-59) L 10/14/18 23:21 Cholesterol/HDL Ratio 2.10 % 10/14/18 23:21 Urine Color Lindsay (Yellow) 10/14/18 01:27 Urine Turbidity Cloudy (Clear) 10/14/18 01:27 Urine pH 5.0 (5.0-7.0) 10/14/18 01:27 Ur Specific Patten 1.020 (1.003-1.030) 10/14/18 01:27 Urine Protein 100 mg/dl mg/dL (Negative) 10/14/18 01:27 Urine Glucose (UA) Neg mg/dL (Negative) 10/14/18 01:27 Urine Ketones Neg mg/dL (Negative) 10/14/18 01:27 Urine Blood Lg (Negative) 10/14/18 01:27 Urine Nitrite Neg (Negative) 10/14/18 01:27 Urine Bilirubin Neg (Negative) 10/14/18 01:27 Urine Urobilinogen 2.0 mg/dL (<2.0) 10/14/18 01:27 Ur Leukocyte Esterase Neg (Negative) 10/14/18 01:27 Urine WBC (Auto) 6.0 /HPF (0.0-6.0) 10/14/18 01:27 Urine RBC (Auto) 95.0 /HPF (0.0-6.0) 10/14/18 01:27 U Epithel Cells (Auto) < 1.0 /HPF (0-13.0) 10/14/18 01:27 Amorphous Crystals 3+ 10/14/18 01:27 Hyaline Casts 4 /LPF 10/14/18 01:27 Granular Casts 2 /LPF 10/14/18 01:27 Urine Mucus 1+ /HPF 10/14/18 01:27 Assessment and Plan Assessment and plan: 1. Right midlung pneumonia (CPAP) 2. COPD (history of respiratory failure/status post trach) 3. Acute encephalopathy 4. HIV/AIDS (viral load and CD4 unknown) 5. H/o toxoplasmosis 6. H/o syphilitic encephalopathy 7. CVA with residual deficit/ bilateral LE contractures 8. Acute renal failure (likely due to dehydration) 9. cocaine abuse 10. Anemia (multifactorial) 11. Debilitating Plan: Pt is admitted to [facility] for pneumonia Continue nebulizer treatmemt PRN for SOB CAP Protocol Continue cefepime and Vanco for pneumonia O2 to keep sat > 92% IV fluid for hydration Hold PO meds Further plan per hospital course Supportive care DVT prophylaxis with Lovenox Case management for DC planning to alf Contact patient's family in am to discuss DO NOT RESUSCITATE status Pt's condition and plan of care discussed with Dr. Kerr Advance Directives: Yes VTE prophylaxis?: Chemical Plan of care discussed with patient/family: Yes <SARA KERR - Last Filed: 10/24/18 22:28> History of Present Illness Date of admission: 10/15/18 02:00 Medications and Allergies Active Meds: Active Medications Acetaminophen (Tylenol) 650 mg PO Q4H PRN PRN Reason: Pain MILD(1-3)/Fever >100.5/DELGADO Enoxaparin Sodium (Lovenox) 30 mg SUB-Q QDAY BLOSSOM Famotidine (Pepcid) 20 mg IV QAM BLOSSOM Dextrose/Sodium Chloride (D5/0.45ns) 1,000 mls @ 75 mls/hr IV DIRECT BLOSSOM Last Admin: 10/15/18 05:48 Dose: 75 mls/hr Documented by: Levofloxacin/Dextrose (Levaquin 500mg/100ml) 500 mg in 100 mls @ 100 mls/hr IV Q24HR BLOSSOM; Protocol Piperacillin Sod/Tazobactam Sod (Zosyn/Ns 3.375gm/50ml) 3.375 gm in 50 mls @ 100 mls/hr IV Q8HR BLOSSOM; Protocol Morphine Sulfate (Morphine) 2 mg IV Q4H PRN PRN Reason: Pain, Moderate (4-6) Ondansetron HCl (Zofran) 4 mg IV Q8H PRN PRN Reason: Nausea And Vomiting Sodium Chloride (Sodium Chloride Flush Syringe 10 Ml) 10 ml IV BID BOLSSOM Sodium Chloride (Sodium Chloride Flush Syringe 10 Ml) 10 ml IV PRN PRN PRN Reason: LINE FLUSH Exam - Constitutional Vitals: Temp Pulse Resp BP Pulse Ox 101.6 F H 97 H 35 H 96/41 98 10/14/18 23:14 10/15/18 05:01 10/15/18 05:01 10/15/18 05:01 10/15/18 03:45 Results - Labs CBC & Chem 7: 10/24/18 09:58 10/24/18 06:42 Labs: Laboratory Last Values WBC 5.1 K/mm3 (4.5-11.0) 10/14/18 23:21 RBC 3.72 M/mm3 (3.65-5.03) 10/14/18 23:21 Hgb 10.2 gm/dl (11.8-15.2) L 10/14/18 23:21 Hct 32.0 % (35.5-45.6) L 10/14/18 23:21 MCV 86 fl (84-94) 10/14/18 23:21 MCH 28 pg (28-32) 10/14/18 23:21 MCHC 32 % (32-34) 10/14/18 23:21 RDW 18.9 % (13.2-15.2) H 10/14/18 23:21 Plt Count 100 K/mm3 (140-440) L 10/14/18 23:21 Lymph % (Auto) Commod[employer] Trader 10/14/18 23:21 Luna % (Auto) [employer]ader 10/14/18 23:21 Eos % (Auto) [employer]ader 10/14/18 23:21 Baso % (Auto) [employer] Trader 10/14/18 23:21 Lymph # [employer] Tr[employer] 10/14/18 23:21 Luna # [employer] Trader 10/14/18 23:21 Eos # [employer]ities Trader 10/14/18 23:21 Baso # [employer]ities Trader 10/14/18 23:21 Add Manual Diff Complete 10/14/18 23:21 Total Counted 100 10/14/18 23:21 Seg Neutrophils % [employer] Trader 10/14/18 23:21 Seg Neuts % (Manual) 34.0 % (40.0-70.0) L 10/14/18 23:21 Band Neutrophils % 45.0 % 10/14/18 23:21 Lymphocytes % (Manual) 16.0 % (13.4-35.0) 10/14/18 23:21 Reactive Lymphs % (Man) 0 % 10/14/18 23:21 Monocytes % (Manual) 5.0 % (0.0-7.3) 10/14/18 23:21 Eosinophils % (Manual) 0 % (0.0-4.3) 10/14/18 23:21 Basophils % (Manual) 0 % (0.0-1.8) 10/14/18 23:21 Metamyelocytes % 0 % 10/14/18 23:21 Myelocytes % 0 % 10/14/18 23:21 Promyelocytes % 0 % 10/14/18 23:21 Blast Cells % 0 % 10/14/18 23:21 Nucleated RBC % Not Reportable 10/14/18 23:21 Seg Neutrophils # Commod[employer] Trader 10/14/18 23:21 Seg Neutrophils # Man 1.7 K/mm3 (1.8-7.7) L 10/14/18 23:21 Band Neutrophils # 2.3 K/mm3 10/14/18 23:21 Lymphocytes # (Manual) 0.8 K/mm3 (1.2-5.4) L 10/14/18 23:21 Abs React Lymphs (Man) 0.0 K/mm3 10/14/18 23:21 Monocytes # (Manual) 0.3 K/mm3 (0.0-0.8) 10/14/18 23:21 Eosinophils # (Manual) 0.0 K/mm3 (0.0-0.4) 10/14/18 23:21 Basophils # (Manual) 0.0 K/mm3 (0.0-0.1) 10/14/18 23:21 Metamyelocytes # 0.0 K/mm3 10/14/18 23:21 Myelocytes # 0.0 K/mm3 10/14/18 23:21 Promyelocytes # 0.0 K/mm3 10/14/18 23:21 Blast Cells # 0.0 K/mm3 10/14/18 23:21 WBC Morphology Not Reportable 10/14/18 23:21 Hypersegmented Neuts Not Reportable 10/14/18 23:21 Hyposegmented Neuts Not Reportable 10/14/18 23:21 Hypogranular Neuts Not Reportable 10/14/18 23:21 Smudge Cells Not Reportable 10/14/18 23:21 Toxic Granulation Not Reportable 10/14/18 23:21 Toxic Vacuolation Not Reportable 10/14/18 23:21 Dohle Bodies Few 10/14/18 23:21 Pelger-Huet Anomaly Not Reportable 10/14/18 23:21 Barry Rods Not Reportable 10/14/18 23:21 Platelet Estimate Consistent w auto 10/14/18 23:21 Clumped Platelets Not Reportable 10/14/18 23:21 Plt Clumps, EDTA Not Reportable 10/14/18 23:21 Large Platelets Few 10/14/18 23:21 Giant Platelets Not Reportable 10/14/18 23:21 Platelet Satelliting Not Reportable 10/14/18 23:21 Plt Morphology Comment Not Reportable 10/14/18 23:21 RBC Morphology Not Reportable 10/14/18 23:21 Dimorphic RBCs Not Reportable 10/14/18 23:21 Polychromasia Not Reportable 10/14/18 23:21 Hypochromasia Not Reportable 10/14/18 23:21 Poikilocytosis Not Reportable 10/14/18 23:21 Anisocytosis 1+ 10/14/18 23:21 Microcytosis Not Reportable 10/14/18 23:21 Macrocytosis Not Reportable 10/14/18 23:21 Spherocytes Not Reportable 10/14/18 23:21 Pappenheimer Bodies Not Reportable 10/14/18 23:21 Sickle Cells Not Reportable 10/14/18 23:21 Target Cells Not Reportable 10/14/18 23:21 Tear Drop Cells Not Reportable 10/14/18 23:21 Ovalocytes Not Reportable 10/14/18 23:21 Helmet Cells Not Reportable 10/14/18 23:21 Villar[place] Bodies Not Reportable 10/14/18 23:21 [place]compte Rings Not Reportable 10/14/18 23:21 Darlene Cells Not Reportable 10/14/18 23:21 Bite Cells Not Reportable 10/14/18 23:21 Crenated Cell Not Reportable 10/14/18 23:21 Elliptocytes Not Reportable 10/14/18 23:21 Acanthocytes (Spur) Not Reportable 10/14/18 23:21 Rouleaux Not Reportable 10/14/18 23:21 Hemoglobin C Crystals Not Reportable 10/14/18 23:21 Schistocytes Not Reportable 10/14/18 23:21 Malaria parasites Not Reportable 10/14/18 23:21 Mahendra Bodies Not Reportable 10/14/18 23:21 Hem Pathologist Commnt No 10/14/18 23:21 Sodium 156 mmol/L (137-145) H 10/14/18 23:21 Potassium 4.1 mmol/L (3.6-5.0) 10/14/18 23:21 Chloride 117.8 mmol/L (98-107) H 10/14/18 23:21 Carbon Dioxide 19 mmol/L (22-30) L 10/14/18 23:21 Anion Gap 23 mmol/L 10/14/18 23:21 BUN 124 mg/dL (9-20) H 10/14/18 23:21 Creatinine 4.8 mg/dL (0.8-1.5) H 10/14/18 23:21 Estimated GFR 15 ml/min 10/14/18 23:21 BUN/Creatinine Ratio 26 % 10/14/18 23:21 Glucose 98 mg/dL (75-100) 10/14/18 23:21 Lactic Acid 2.50 mmol/L (0.7-2.0) H* 10/15/18 06:18 Calcium 8.7 mg/dL (8.4-10.2) 10/14/18 23:21 Total Bilirubin 0.30 mg/dL (0.1-1.2) 10/14/18 23:21 AST 72 units/L (5-40) H 10/14/18 23:21 ALT 24 units/L (7-56) 10/14/18 23:21 Alkaline Phosphatase 69 units/L (35-129) 10/14/18 23:21 Troponin T 0.034 ng/mL (0.00-0.029) H 10/14/18 23:21 Total Protein 7.5 g/dL (6.3-8.2) 10/14/18 23:21 Albumin 1.9 g/dL (3.9-5) L 10/14/18 23:21 Albumin/Globulin Ratio 0.3 % 10/14/18 23:21 Triglycerides 63 mg/dL (2-149) 10/14/18 23:21 Cholesterol 59 mg/dL (50-199) 10/14/18 23:21 LDL Cholesterol Direct 13 mg/dL (50-130) L 10/14/18 23:21 HDL Cholesterol 28 mg/dL (40-59) L 10/14/18 23:21 Cholesterol/HDL Ratio 2.10 % 10/14/18 23:21 Urine Color Lindsay (Yellow) 10/14/18 01:27 Urine Turbidity Cloudy (Clear) 10/14/18 01:27 Urine pH 5.0 (5.0-7.0) 10/14/18 01:27 Ur Specific Patten 1.020 (1.003-1.030) 10/14/18 01:27 Urine Protein 100 mg/dl mg/dL (Negative) 10/14/18 01:27 Urine Glucose (UA) Neg mg/dL (Negative) 10/14/18 01:27 Urine Ketones Neg mg/dL (Negative) 10/14/18 01:27 Urine Blood Lg (Negative) 10/14/18 01:27 Urine Nitrite Neg (Negative) 10/14/18 01:27 Urine Bilirubin Neg (Negative) 10/14/18 01:27 Urine Urobilinogen 2.0 mg/dL (<2.0) 10/14/18 01:27 Ur Leukocyte Esterase Neg (Negative) 10/14/18 01:27 Urine WBC (Auto) 6.0 /HPF (0.0-6.0) 10/14/18 01:27 Urine RBC (Auto) 95.0 /HPF (0.0-6.0) 10/14/18 01:27 U Epithel Cells (Auto) < 1.0 /HPF (0-13.0) 10/14/18 01:27 Amorphous Crystals 3+ 10/14/18 01:27 Hyaline Casts 4 /LPF 10/14/18 01:27 Granular Casts 2 /LPF 10/14/18 01:27 Urine Mucus 1+ /HPF 10/14/18 01:27 Assessment and Plan Assessment and plan: Subjective 58-year-old male with a history of HIV, dementia, hyperlipidemia, autoimmune hepatitis, CVA was brought to the emergency room for evaluation of lethargy, he was found to be hypotensive, pneumonia on chest x-ray. He was started on fluids to which she responded. Continue IV fluids, Zosyn, Levaquin, follow cultures. Hyponatremia, continue fluids, monitor sodium levels
[2018-10-15] MEDS ORDERED: D5/0.45NS 1,000 ML IV SCH (04:00)
[2018-10-15] MEDS ORDERED: LEVAQUIN 500MG/100ML 500 MG/100 ML BAG IV ONE ×2 (07:02→07:42)
[2018-10-15] MEDS ORDERED: ZOSYN/NS 3.375GM/50ML 3.375 GM/50 ML BAG IV SCH (08:00)
[2018-10-15] MEDS ORDERED: PEPCID IV ONE (09:35)
[2018-10-15] MEDS ORDERED: LOVENOX SUB-Q ONE (09:35)
[2018-10-15] MEDS: PEPCID IV SCH (09:46)
[2018-10-15] MEDS: SODIUM CHLORIDE FLUSH SYRINGE 10 ML IV SCH (09:46)
[2018-10-15] MEDS: LOVENOX SUB-Q SCH (09:46)
[2018-10-15] MEDS ORDERED: MAXIPIME/NS 2 GM/100 ML 2 GM/100 ML BAG IV SCH (10:00)
[2018-10-15] MEDS: NACL 0.9% 1000 ML 1,000 ML IV ONE ×2 (12:04→12:44)
[2018-10-15] MEDS ORDERED: ATIVAN IV ONE (12:15)
[2018-10-15] MEDS ORDERED: ATIVAN ONE (12:17)
[2018-10-15] MEDS ORDERED: NACL 0.9% 1000 ML 1,000 ML ONE ×2 (12:40→21:49)
--- NOTE | 2018-10-15 12:57 | Procedure Note ---
Pre-op diagnosis: Sepsis, HIV Post-op diagnosis: same Procedure: Procedure: LIJ Central Line Placement. The patient was prepped and draped in the usual sterile fashion. Timeout taken to verify correct patient, procedure, and operative site. Ultrasound used to localize the LIJV without difficulty. Seldinger technique utilized to access the LIJV under ultrasound guidance. Local anesthesia with lidocaine. Seeker needle advanced into the LIJV. A guidewire was subsequently passed into the LIJV and the seeker needle removed over the guidewire. A scalpel was used to incise the skin. A dilator was passed into the LIJV over the guidewire then removed. A triple lumen catheter was then advanced into the LIJV over the guidewire, and the guidewire was removed. The triple lumen catheter was sewn in place. All 3 ports flush and draw with ease. Postop Chest X ray does not reveal pneumothorax. Tip of catheter is in the SCV. EBL: Minimal, Sepcimen:None Complications: None Anesthesia: local Surgeon: TARAH DUONG Estimated blood loss: minimal Pathology: none Disposition: ICU Anesthesia: local Surgeon: TARAH DUONG Estimated blood loss: minimal Pathology: none Condition: critical Disposition: ICU
--- NOTE | 2018-10-15 13:50 | Consultation ---
History of Present Illness Consult date: 10/15/18 Requesting physician: JOSHUA ARVIZU History of present illness: 58-year-old male with history of HIV AIDS (last viral load in March 2018 was undetectable and CD4 count was more than 700 on tenofovir, lamivudine, ritonavir boosted darunavir), cachexia, toxoplasmosis, CVA with residual weakness, status post tracheostomy reversal for previous respiratory failure, syphilitic encephalitis, traumatic brain injury, cocaine and tobacco abuse, senior care resident at [place]. Recent admission 08/27-09/01/2018 due tachycardia and hypoxia, found to have bilateral pneumonia, R>L causing acute respiratory failure, it was felt probably HCAP vs aspiration treated with cefepime and flagyl IV then changed to augmentin suspension 875mg PO BID for total 7 days. Readmitted on due to AMS/lethargic and worsening shortness of breath. Patient is not able to provide a history, currently non verbal in mild respiratory distress. In the ED, temp 101.6, HR 111, R 16, O2 sat 89%, BP 78/46. WBC 5.1, Hg 10.2, Plat 100. Creat 4.8. Na 156 AST 72. UA negative. CXR showed probably COPD and right sided infiltrate I have been consulted for severe sepsis with septic shock and critical care management. Past History Past Medical History: COPD, HIV/AIDS, renal failure, other (HIV/AIDS) Past Surgical History: No surgical history Social history: other (cocaine abuse) Family history: no significant family history Medications and Allergies Allergies Allergy/AdvReac Type Severity Reaction Status Date / Time No Known Allergies Allergy Verified 08/27/18 10:38 Home Medications Medication Instructions Recorded Confirmed Last Taken Type Acetylcysteine 20% Oral [Mucomyst 3 ml INTRATRACH Q6H 03/28/18 03/28/18 Unknown History Oral] Aspirin [Aspirin TAB] 325 mg FEEDTUBE DAILY 03/28/18 03/28/18 Unknown History Atorvastatin Calcium [Lipitor] 20 mg FEEDTUBE HS 03/28/18 03/28/18 Unknown History Bisacodyl [Bisac-Evac] 10 mg RC DAILY PRN 03/28/18 03/28/18 Unknown History Cholecalciferol (Vitamin D3) 2,000 unit FEEDTUBE QAM 03/28/18 03/28/18 Unknown History [Vitamin D3] Docusate Sodium [Move It Along] 100 mg FEEDTUBE Q12H PRN 03/28/18 03/28/18 Unknown History Doxazosin Mesylate [Cardura] 1 mg FEEDTUBE HS 03/28/18 03/28/18 Unknown History Ergocalciferol [Vitamin D2] 1 cap FEEDTUBE QWEEK 03/28/18 03/28/18 Unknown History Gabapentin [Neurontin] 300 mg FEEDTUBE HS 03/28/18 03/28/18 Unknown History Haloperidol Decanoate [Haldol 50 mg IM Q4W 03/28/18 03/28/18 Unknown History Decanoate] Haloperidol Lactate [Haldol] 0.4 ml IM Q8H PRN 03/28/18 03/28/18 Unknown History Ipratropium/Albuterol Sulfate 1 ampul IH Q4HR 03/28/18 03/28/18 Unknown History [DUONEB *Not for PRN Use*] Polyethylene Glycol 3350 17 gm FEEDTUBE DAILY PRN 03/28/18 03/28/18 Unknown History [Smoothlax] Quetiapine Fumarate [Seroquel] 100 mg FEEDTUBE Q8H 03/28/18 03/28/18 Unknown History Scopolamine [Transderm-Scop] 1 each TD Q72H 03/28/18 03/28/18 Unknown History Sennosides [Senna Laxative] 17.2 mg FEEDTUBE HS 03/28/18 03/28/18 Unknown History lamiVUDine [Lamivudine] 30 ml FEEDTUBE QAM 03/28/18 03/28/18 Unknown History traMADol [Ultram 50 MG tab] 50 mg FEEDTUBE TID #10 tablet 03/31/18 Unknown Rx Bacitracin Zinc Oint [Antibiotic 1 applicatio TP BID #1 tube 08/22/18 Unknown Rx Oint] ALBUTEROL NEB's [Proventil 0.083% 2.5 mg IH Q4HRT PRN nebu 09/01/18 Unknown Rx NEBS] Amoxicillin/K Clav Tab [Augmentin 875 each PO Q12HR #14 tablet 09/01/18 Unknown Rx 875MG TAB] Darunavir [Prezista] 800 mg PO QDAY tablet 09/01/18 Unknown Rx FLUoxetine [Prozac] 40 mg PO QDAY oral.liqd 09/01/18 Unknown Rx Famotidine [Pepcid] 20 mg PO BID tablet 09/01/18 Unknown Rx Levothyroxine [Synthroid] 50 mcg PO DAILY@0600 tablet 09/01/18 Unknown Rx Metoprolol [Lopressor TAB] 12.5 mg PO BID tablet 09/01/18 Unknown Rx Ritonavir [Norvir] 100 mg PO DAILY tab 09/01/18 Unknown Rx Tenofovir [Viread] 300 mg PO QDAY tablet 09/01/18 Unknown Rx Active Meds: Active Medications Acetaminophen (Tylenol) 650 mg PO Q4H PRN PRN Reason: Pain MILD(1-3)/Fever >100.5/DELGADO Albuterol/Ipratropium (Duoneb *Not For Prn Use*) 1 ampul IH Q6HRT [facility] Budesonide (Pulmicort) 0.5 mg IH Q12HRT [facility] Enoxaparin Sodium (Lovenox) 30 mg SUB-Q QDAY [facility] Last Admin: 10/15/18 09:46 Dose: 30 mg Documented by: Famotidine (Pepcid) 20 mg IV QAM [facility] Last Admin: 10/15/18 09:46 Dose: 20 mg Documented by: Piperacillin Sod/Tazobactam Sod (Zosyn/Ns 3.375gm/50ml) 3.375 gm in 50 mls @ 100 mls/hr IV Q8HR [facility]; Protocol Last Admin: 10/15/18 08:40 Dose: 100 mls/hr Documented by: Levofloxacin/Dextrose (Levaquin 250mg/50ml) 250 mg in 50 mls @ 50 mls/hr IV Q 48H [facility] Dextrose (D5w) 1,000 mls @ 125 mls/hr IV DIRECT [facility] Norepinephrine (Levophed Drip 4 Mg/Ns 250 Ml) 4 mg in 250 mls @ 7.5 mls/hr IV TITR [facility]; Protocol Methylprednisolone Sodium Succinate (Solu-Medrol) 125 mg IV Q8HR [facility] Morphine Sulfate (Morphine) 2 mg IV Q4H PRN PRN Reason: Pain, Moderate (4-6) Ondansetron HCl (Zofran) 4 mg IV Q8H PRN PRN Reason: Nausea And Vomiting Sodium Chloride (Sodium Chloride Flush Syringe 10 Ml) 10 ml IV BID [facility] Last Admin: 10/15/18 09:46 Dose: 10 ml Documented by: Sodium Chloride (Sodium Chloride Flush Syringe 10 Ml) 10 ml IV PRN PRN PRN Reason: LINE FLUSH Review of Systems ROS unobtainable: due to mental status Physical Examination Vital signs: Vital Signs Pulse Ox 89 10/14/18 22:59 General appearance: somnolent in mild resp distress on venturi mask Cachexia, chronically ill looking Eyes: anicteric sclerae, moist conjunctivae; no lid-lag; PERRLA HENT: Atraumatic; oropharynx limited, LIJ CVC Neck: Trachea midline; supple, no thyromegaly or lymphadenopathy Lungs: Decreased AE bilaterally, coarse BS with rhonchi CV: tachycardia Abdomen: Soft, non-tender; +PEG +diarrhea Extremities: No peripheral edema, no cyanosis, no clubbing Contractures Skin: diffuse skin desquamation Psych: no agitated Neuro: encephalopathic, non verbal, position Results - Laboratory Findings CBC and BMP: 10/18/18 00:50 10/17/18 14:41 ABG POC ABG pH 7.308 (7.35-7.45) L 10/15/18 13:03 POC ABG pCO2 33.1 (35-45) L 10/15/18 13:03 POC ABG pO2 70 (80-105) L 10/15/18 13:03 POC ABG HCO3 16.6 (22-26 mml/L) 10/15/18 13:03 POC ABG Total CO2 18 (23-27mmol/L) 10/15/18 13:03 POC ABG O2 Sat 92 10/15/18 13:03 Abnormal lab findings: Abnormal Labs 10/14/18 10/14/18 10/14/18 23:21 23:21 23:21 Hgb 10.2 L Hct 32.0 L RDW 18.9 H Plt Count 100 L Seg Neuts % (Manual) 34.0 L Seg Neutrophils # Man 1.7 L Lymphocytes # (Manual) 0.8 L POC ABG pH POC ABG pCO2 POC ABG pO2 Sodium 156 H Chloride 117.8 H Carbon Dioxide 19 L BUN 124 H Creatinine 4.8 H Glucose Lactic Acid 4.90 H* Calcium AST 72 H Troponin T 0.034 H Albumin 1.9 L LDL Cholesterol Direct 13 L HDL Cholesterol 28 L 05/05/19 05/05/19 05/05/19 00:50 03:46 04:29 Hgb Hct RDW Plt Count Seg Neuts % (Manual) Seg Neutrophils # Man Lymphocytes # (Manual) POC ABG pH POC ABG pCO2 POC ABG pO2 Sodium Chloride Carbon Dioxide BUN Creatinine Glucose Lactic Acid 3.30 H* 2.20 H* 2.20 H* Calcium AST Troponin T Albumin LDL Cholesterol Direct HDL Cholesterol 10/15/18 10/15/18 10/15/18 05:37 06:18 09:16 Hgb Hct RDW Plt Count Seg Neuts % (Manual) Seg Neutrophils # Man Lymphocytes # (Manual) POC ABG pH POC ABG pCO2 POC ABG pO2 Sodium Chloride Carbon Dioxide BUN Creatinine Glucose Lactic Acid 2.30 H* 2.50 H* 3.10 H* Calcium AST Troponin T Albumin LDL Cholesterol Direct HDL Cholesterol 10/15/18 10/15/18 09:16 13:03 Hgb Hct RDW Plt Count Seg Neuts % (Manual) Seg Neutrophils # Man Lymphocytes # (Manual) POC ABG pH 7.308 L POC ABG pCO2 33.1 L POC ABG pO2 70 L Sodium 158 H Chloride 121.1 H Carbon Dioxide 19 L BUN 120 H Creatinine 4.3 H Glucose 119 H Lactic Acid Calcium 8.0 L AST Troponin T Albumin LDL Cholesterol Direct HDL Cholesterol - Diagnostic Findings Chest x-ray: image reviewed Assessment and Plan Severe sepsis with septic shock Acute Hypoxemic Respiratory Failure Right midlung pneumonia (HAP) h/o Tracheostomy, decanulated COPD Latic acidosis Acute encephalopathy -metabolic Hypernatremia HIV/AIDS H/o Toxoplasmosis H/o syphilitic encephalopathy CVA with residual deficit/ bilateral LE contracture Acute renal failure -vasomotor nephropathy/ATN H/O cocaine abuse Anemia (multi-factorial) -Admit ICU -continue vasopressor support , norepinephrine, to keep MAP>65 -Supplemental oxygen to keep O2 sats> 90% -Volume resuscitation per sepsis protocol. -Monitor respiratory status closely to avoid pulmonary edema - aspiration precautions - continue bronchodilators with pulmonary hygiene per RT - ABG in am - continue to wean levophed for target MAP > 65 mmHg -Enteric nutrition -Accuchecks with glycemic control. Target blood glucose is 140-180 mg/dL - Free water flushes to treat hypernatremia -VTE prophylaxis -Steroids with quick taper -Continue Anti-infectives per ID , de-escalate based on culture - Monitor renal indices closely - Avoid nephrotoxic agents, adjust all medications for CrCL - Strict intake and output monitoring - Supportive transfusions as indicated - Maintenance of sleep -wake cycle - Mobility as tolerated by hemodynamics, for pressure ulcer prevention -Wound care to evaluate and treat - Influenza and pneumonia vaccination per protocol - goals of care need to be addressed with family or POA. 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, intermediate PROGNOSIS: GUARDED CONDITION: CRITICAL CODE STATUS: FULL CODE The high probability of a clinically significant, sudden or life-threatening deterioration of the [respiratory, cardiovascular, renal, neurology] system(s) required my full and direct attention, intervention and personal management. The aggregate critical care time was [65] minutes without overlap. Time includes spent on; [x] Data Review and interpretation [x] Patient assessment and monitoring of vital signs [x] Documentation [x] Medication orders and management
--- NOTE | 2018-10-15 13:57 | Consultation ---
History of Present Illness - Reason for Consult Consult date: 10/15/18 sepsis, pneumonia Requesting physician: JOSHUA ARVIZU - History of Present Illness 58-year-old male with history of HIV AIDS (last viral load in March 2018 was undetectable and CD4 count was more than 700 on tenofovir, lamivudine, ritonavir boosted darunavir), cachexia, toxoplasmosis, CVA with residual weakness, status post tracheostomy reversal for previous respiratory failure, syphilitic en cephalitis, traumatic brain injury, cocaine and tobacco abuse, long-term resident at [place], well known to our service seen during recent admission 08/27-09/01/2018 due tachycardia and hypoxia, found to have bilateral pneumonia, R>L causing acute respiratory failure, it was felt probably HCAP vs aspiration treated with cefepime and flagyl IV then changed to augmentin suspension 875mg PO BID for total 7 days. Readmitted on due to AMS/lethargic and worsening shortness of breath. Patient is not able to provide a history, currently non verbal in mild respiratory distress. In the ED, temp 101.6, HR 111, R 16, O2 sat 89%, BP 78/46. WBC 5.1, Hg 10.2, Plat 100. Creat 4.8. Na 156AST 72. UA negative. CXR showed probably COPD and right sided pneumonia. Review of Systems: unable to obtain Past History Past Medical History: COPD, HIV/AIDS, renal failure, other (HIV/AIDS) Past Surgical History: No surgical history Social history: other (cocaine abuse) Family history: no significant family history Medications and Allergies Allergies Allergy/AdvReac Type Severity Reaction Status Date / Time No Known Allergies Allergy Verified 08/27/18 10:38 Home Medications Medication Instructions Recorded Confirmed Last Taken Type Acetylcysteine 20% Oral [Mucomyst 3 ml INTRATRACH Q6H 03/28/18 03/28/18 Unknown History Oral] Aspirin [Aspirin TAB] 325 mg FEEDTUBE DAILY 03/28/18 03/28/18 Unknown History Atorvastatin Calcium [Lipitor] 20 mg FEEDTUBE HS 03/28/18 03/28/18 Unknown History Bisacodyl [Bisac-Evac] 10 mg RC DAILY PRN 03/28/18 03/28/18 Unknown History Cholecalciferol (Vitamin D3) 2,000 unit FEEDTUBE QAM 03/28/18 03/28/18 Unknown History [Vitamin D3] Docusate Sodium [Move It Along] 100 mg FEEDTUBE Q12H PRN 03/28/18 03/28/18 U nknown History Doxazosin Mesylate [Cardura] 1 mg FEEDTUBE HS 03/28/18 03/28/18 Unknown History Ergocalciferol [Vitamin D2] 1 cap FEEDTUBE QWEEK 03/28/18 03/28/18 Unknown History Gabapentin [Neurontin] 300 mg FEEDTUBE HS 03/28/18 03/28/18 Unknown History Haloperidol Decanoate [Haldol 50 mg IM Q4W 03/28/18 03/28/18 Unknown History Decanoate] Haloperidol Lactate [Haldol] 0.4 ml IM Q8H PRN 03/28/18 03/28/18 Unknown History Ipratropium/Albuterol Sulfate 1 ampul IH Q4HR 03/28/18 03/28/18 Unknown History [DUONEB *Not for PRN Use*] Polyethylene Glycol 3350 17 gm FEEDTUBE DAILY PRN 03/28/18 03/28/18 Unknown History [Smoothlax] Quetiapine Fumarate [Seroquel] 100 mg FEEDTUBE Q8H 03/28/18 03/28/18 Unknown History Scopolamine [Transderm-Scop] 1 each TD Q72H 03/28/18 03/28/18 Unknown History Sennosides [Senna Laxative] 17.2 mg FEEDTUBE HS 03/28/18 03/28/18 Unknown History lamiVUDine [Lamivudine] 30 ml FEEDTUBE QAM 03/28/18 03/28/18 Unknown History traMADol [Ultram 50 MG tab] 50 mg FEEDTUBE TID #10 tablet 03/31/18 Unknown Rx Bacitracin Zinc Oint [Antibiotic 1 applicatio TP BID #1 tube 08/22/18 Unknown Rx Oint] ALBUTEROL NEB's [Proventil 0.083% 2.5 mg IH Q4HRT PRN nebu 09/01/18 Unknown Rx NEBS] Amoxicillin/K Clav Tab [Augmentin 875 each PO Q12HR #14 tablet 09/01/18 Unknown Rx 875MG TAB] Darunavir [Prezista] 800 mg PO QDAY tablet 09/01/18 Unknown Rx FLUoxetine [Prozac] 40 mg PO QDAY oral.liqd 09/01/18 Unknown Rx Famotidine [Pepcid] 20 mg PO BID tablet 09/01/18 Unknown Rx Levothyroxine [Synthroid] 50 mcg PO DAILY@0600 tablet 09/01/18 Unknown Rx Metoprolol [Lopressor TAB] 12.5 mg PO BID tablet 09/01/18 Unknown Rx Ritonavir [Norvir] 100 mg PO DAILY tab 09/01/18 Unknown Rx Tenofovir [Viread] 300 mg PO QDAY tablet 09/01/18 Unknown Rx Active Meds: Active Medications Acetaminophen (Tylenol) 650 mg PO Q4H PRN PRN Reason: Pain MILD(1-3)/Fever >100.5/DELGADO Albuterol/Ipratropium (Duoneb *Not For Prn Use*) 1 ampul IH Q6HRT [facility] Budesonide (Pulmicort) 0.5 mg IH Q12HRT [facility] Enoxaparin Sodium (Lovenox) 30 mg SUB-Q QDAY [facility] Last Admin: 10/15/18 09:46 Dose: 30 mg Documented by: Famotidine (Pepcid) 20 mg IV QAM [facility] Last Admin: 10/15/18 09:46 Dose: 20 mg Documented by: Piperacillin Sod/Tazobactam Sod (Zosyn/Ns 3.375gm/50ml) 3.375 gm in 50 mls @ 100 mls/hr IV Q8HR [facility]; Protocol Last Admin: 10/15/18 08:40 Dose: 100 mls/hr Documented by: Levofloxacin/Dextrose (Levaquin 250mg/50ml) 250 mg in 50 mls @ 50 mls/hr IV Q48H [facility] Dextrose (D5w) 1,000 mls @ 125 mls/hr IV DIRECT [facility] Norepinephrine (Levophed Drip 4 Mg/Ns 250 Ml) 4 mg in 250 mls @ 7.5 mls/hr IV TITR [facility]; Protocol Methylprednisolone Sodium Succinate (Solu-Medrol) 125 mg IV Q8HR [facility] Morphine Sulfate (Morphine) 2 mg IV Q4H PRN PRN Reason: Pain, Moderate (4-6) Ondansetron HCl (Zofran) 4 mg IV Q8H PRN PRN Reason: Nausea And Vomiting Sodium Chloride (Sodium Chloride Flush Syringe 10 Ml) 10 ml IV BID [facility] Last Admin: 10/15/18 09:46 Dose: 10 ml Documented by: Sodium Chloride (Sodium Chloride Flush Syringe 10 Ml) 10 ml IV PRN PRN PRN Reason: LINE FLUSH Physical Examination - Physical Exam Narrative exam: General appearance: somnolent in mild resp distress on venti mask Eyes: anicteric sclerae, moist conjunctivae; no lid-lag; PERRLA HENT: Atraumatic; oropharynx limited Neck: Trachea midline; supple, no thyromegaly or lymphadenopathy Lungs: king rhonchi CV: tachycardia Abdomen: Soft, non-tender; +PEG +diarrhea Extremities: No peripheral edema or extremity lymphadenopathy Skin: diffuse skin desquamation Psych: no agitated. Neuro: somnolent non verbal position - Constitutional Vitals: Vital Signs Temp Pulse Resp BP Pulse Ox 99.4 F 106 H 42 H 93/57 86 10/15/18 07:48 10/15/18 13:31 10/15/18 13:31 10/15/18 13:31 10/15/18 12:30 Temperature -Last 24 Hours Temperature 99.4 F Temperature 101.6 F Results - Labs CBC & Chem 7: 10/14/18 23:21 10/15/18 09:16 Labs: Abnormal lab results 10/14/18 10/14/18 10/14/18 Range/Units 23:21 23:21 23:21 Hgb 10.2 L (11.8-15.2) gm/dl Hct 32.0 L (35.5-45.6) % RDW 18.9 H (13.2-15.2) % Plt Count 100 L (140-440) K/mm3 Seg Neuts % (Manual) 34.0 L (40.0-70.0) % Seg Neutrophils # Man 1.7 L (1.8-7.7) K/mm3 Lymphocytes # (Manual) 0.8 L (1.2-5.4) K/mm3 POC ABG pH (7.35-7.45) POC ABG pCO2 (35-45) POC ABG pO2 (80-105) Sodium 156 H (137-145) mmol/L Chloride 117.8 H (98-107) mmol/L Carbon Dioxide 19 L (22-30) mmol/L BUN 124 H (9-20) mg/dL Creatinine 4.8 H (0.8-1.5) mg/dL Glucose (75-100) mg/dL Lactic Acid 4.90 H* (0.7-2.0) mmol/L Calcium (8.4-10.2) mg/dL AST 72 H (5-40) units/L Troponin T 0.034 H (0.00-0.029) ng/mL Albumin 1.9 L (3.9-5) g/dL LDL Cholesterol Direct 13 L (50-130) mg/dL HDL Cholesterol 28 L (40-59) mg/dL 10/15/18 10/15/18 10/15/18 Range/Units 00:50 03:46 04:29 Hgb (11.8-15.2) gm/dl Hct (35.5-45.6) % RDW (13.2-15.2) % Plt Count (140-440) K/mm3 Seg Neuts % (Manual) (40.0-70.0) % Seg Neutrophils # Man (1.8-7.7) K/mm3 Lymphocytes # (Manual) (1.2-5.4) K/mm3 POC ABG pH (7.35-7.45) POC ABG pCO2 (35-45) POC ABG pO2 (80-105) Sodium (137-145) mmol/L Chloride (98-107) mmol/L Carbon Dioxide (22-30) mmol/L BUN (9-20) mg/dL Creatinine (0.8-1.5) mg/dL Glucose (75-100) mg/dL Lactic Acid 3.30 H* 2.20 H* 2.20 H* (0.7-2.0) mmol/L Calcium (8.4-10.2) mg/dL AST (5-40) units/L Troponin T (0.00-0.029) ng/mL Albumin (3.9-5) g/dL LDL Cholesterol Direct (50-130) mg/dL HDL Cholesterol (40-59) mg/dL 10/15/18 10/15/18 10/15/18 Range/Units 05:37 06:18 09:16 Hgb (11.8-15.2) gm/dl Hct (35.5-45.6) % RDW (13.2-15.2) % Plt Count (140-440) K/mm3 Seg Neuts % (Manual) (40.0-70.0) % Seg Neutrophils # Man (1.8-7.7) K/mm3 Lymphocytes # (Manual) (1.2-5.4) K/mm3 POC ABG pH (7.35-7.45) POC ABG pCO2 (35-45) POC ABG pO2 (80-105) Sodium (137-145) mmol/L Chloride (98-107) mmol/L Carbon Dioxide (22-30) mmol/L BUN (9-20) mg/dL Creatinine (0.8-1.5) mg/dL Glucose (75-100) mg/dL Lactic Acid 2.30 H* 2.50 H* 3.10 H* (0.7-2.0) mmol/L Calcium (8.4-10.2) mg/dL AST (5-40) units/L Troponin T (0.00-0.029) ng/mL Albumin (3.9-5) g/dL LDL Cholesterol Direct (50-130) mg/dL HDL Cholesterol (40-59) mg/dL 10/15/18 10/15/18 Range/Units 09:16 13:03 Hgb (11.8-15.2) gm/dl Hct (35.5-45.6) % RDW (13.2-15.2) % Plt Count (140-440) K/mm3 Seg Neuts % (Manual) (40.0-70.0) % Seg Neutrophils # Man (1.8-7.7) K/mm3 Lymphocytes # (Manual) (1.2-5.4) K/mm3 POC ABG pH 7.308 L (7.35-7.45) POC ABG pCO2 33.1 L (35-45) POC ABG pO2 70 L (80-105) Sodium 158 H (137-145) mmol/L Chloride 121.1 H (98-107) mmol/L Carbon Dioxide 19 L (22-30) mmol/L BUN 120 H (9-20) mg/dL Creatinine 4.3 H (0.8-1.5) mg/dL Glucose 119 H (75-100) mg/dL Lactic Acid (0.7-2.0) mmol/L Calcium 8.0 L (8.4-10.2) mg/dL AST (5-40) units/L Troponin T (0.00-0.029) ng/mL Albumin (3.9-5) g/dL LDL Cholesterol Direct (50-130) mg/dL HDL Cholesterol (40-59) mg/dL Assessment and Plan Cultures: Blood culture Urine culture Sputum culture Assessment: 58-year-old male with history of HIV AIDS, cachexia, toxoplasmosis, CVA with residual weakness, status post tracheostomy reversal for previous respiratory failure, syphilitic encephalitis, traumatic brain injury, cocaine and tobacco abuse, long-term resident at [facility]; readmitted on 10/14/2018 due to AMS/lethargic and worsening shortness of breath for 34 hours. Patient is not able to provide a history, currently non verbal in mild respiratory distress. 1) Sepsis: Present on admission, manifested by fever, tachycardia, hypotension. Etiology most likely pneumonia +/- ?colitis 2) Pneumonia: possible aspiration pneumonia vs HAP. CXR showed probably COPD and right sided pneumonia. 3) HIV / AIDS: last viral load in March 2018 was undetectable and CD4 count was more than 700 on tenofovir, lamivudine, ritonavir boosted darunavir 4) Recent bilateral pneumonia, R>L causing acute respiratory failure, it was felt probably HCAP vs aspiration treated with cefepime and flagyl IV then changed to augmentin suspension 875mg PO BID for total 7 days. admission 08/27- 09/01/2018 5) Cachexia 6) Acute on Chronic respiratory failure 7) Acute on chronic encephalopathy Recommendations: - follow-up blood cultures - obtain sputum culture - obtain CD4/VL - stool cultures and C diff - stop zosyn - start cefepime, flagyl and vancomycin renally adjusted - hold off ART for now as DAMON Poor prognosis Will follow. Swati Mchugh MD Infectious Diseases [employer] [facility] ([facility] M [phone] O [phone]
[2018-10-15] MEDS ORDERED: SOLU-Medrol IV SCH (14:00)
--- NOTE | 2018-10-15 14:02 | XRay Report ---
PROCEDURE: XR CHEST 1V AP TECHNIQUE: AP chest HISTORY: TLC placement verification COMPARISONS: Chest x-ray October 14, 2018 FINDINGS: Limited rotated chest. Lung bases not included [id number] Left internal jugular line. Tip SVC. No pneumothorax IMPRESSION: Left internal jugular line tip SVC. No pneumothorax Limited exam as above. This document is electronically signed by Rodger Quintanilla MD., Oct 15 2018 02:01:08 PM ET
--- NOTE | 2018-10-15 16:04 | Progress Note ---
Assessment and Plan Assessment and plan: 58 year old man with history of HIV, toxoplasmosis, severe the reservoir deficits, syphilitic encephalopathy, history of polysubstance abuse including cocaine. He status post trach and tree traversal, has a g-tube still intact. The patient was brought from [facility] for respiratory distress and altered mental status Sepsis secondary to pneumonia, septic shock Infectious disease consultants, continue antibiotics, cont IV pressors, IV fluids Acute kidney injury due to vasomotor nephropathy and ATN IV fluids, nephrology Hypernatremia Hypotonic IV fluid, free water via g-tube Acute hypoxic respiratory failure Continue oxygen via venti mask and BiPAP as tolerated Hypothyroidism thyroid function tests show low T4 and low free T4, increase synthroid dose DVT prophylaxis with heparin subcutaneously cct 33 minutes History Interval history: patient has febrile, confused, agitated and sob no vomiting, no reported cp, no seizures Hospitalist Physical - Physical exam Narrative exam: General.: Appears ill and toxic , emaciated HEENT: Moist mucous membranes, extraocular muscles intact, no lymphadenopathy Neck: supple Cardiac: S1-S2 heard Lungs: crackles Abdomen: soft , nontender, nondistended, bowel sounds positive Extremities: no edema clubbing or cyanosis, contracted extremities Skin: no rash or lesions Neurologic: altered, moved extremiites, does not obey commands Psych: does not obey commands, was agitated earlier, - Constitutional Vitals: Temp Pulse Resp BP Pulse Ox 99.4 F 94 H 24 86/56 80 L 10/15/18 07:48 10/15/18 16:01 10/15/18 16:01 10/15/18 16:01 10/15/18 16:01 General appearance: Present: severe distress, cachectic Results - Labs CBC & Chem 7: 10/16/18 05:18 10/16/18 05:18 Labs: Laboratory Last Values WBC 5.1 K/mm3 (4.5-11.0) 10/14/18 23:21 RBC 3.72 M/mm3 (3.65-5.03) 10/14/18 23:21 Hgb 10.2 gm/dl (11.8-15.2) L 10/14/18 23:21 Hct 32.0 % (35.5-45.6) L 10/14/18 23:21 MCV 86 fl (84-94) 10/14/18 23:21 MCH 28 pg (28-32) 10/14/18 23:21 MCHC 32 % (32-34) 10/14/18 23:21 RDW 18.9 % (13.2-15.2) H 10/14/18 23:21 Plt Count 100 K/mm3 (140-440) L 10/14/18 23:21 Lymph % (Auto) Right Of Way Manager 10/14/18 23:21 [place] % (Auto) Right Of Way Manager 10/14/18 23:21 Eos % (Auto) Right Of Way Manager 10/14/18 23:21 Baso % (Auto) Right Of Way Manager 10/14/18 23:21 Lymph # Right Of Way Manager 10/14/18 23:21 [place] # Right Of Way Manager 10/14/18 23:21 Eos # Right Of Way Manager 10/14/18 23:21 Baso # Right Of Way Manager 10/14/18 23:21 Add Manual Diff Complete 10/14/18 23:21 Total Counted 100 10/14/18 23:21 Seg Neutrophils % Right Of Way Manager 10/14/18 23:21 Seg Neuts % (Manual) 34.0 % (40.0-70.0) L 10/14/18 23:21 Band Neutrophils % 45.0 % 10/14/18 23:21 Lymphocytes % (Manual) 16.0 % (13.4-35.0) 10/14/18 23:21 Reactive Lymphs % (Man) 0 % 10/14/18 23:21 Monocytes % (Manual) 5.0 % (0.0-7.3) 10/14/18 23:21 Eosinophils % (Manual) 0 % (0.0-4.3) 10/14/18 23:21 Basophils % (Manual) 0 % (0.0-1.8) 10/14/18 23:21 Metamyelocytes % 0 % 10/14/18 23:21 Myelocytes % 0 % 10/14/18 23:21 Promyelocytes % 0 % 10/14/18 23:21 Blast Cells % 0 % 10/14/18 23:21 Nucleated RBC % Not Reportable 10/14/18 23:21 Seg Neutrophils # Right Of Way Manager 10/14/18 23:21 Seg Neutrophils # Man 1.7 K/mm3 (1.8-7.7) L 10/14/18 23:21 Band Neutrophils # 2.3 K/mm3 10/14/18 23:21 Lymphocytes # (Manual) 0.8 K/mm3 (1.2-5.4) L 10/14/18 23:21 Abs React Lymphs (Man) 0.0 K/mm3 10/14/18 23:21 Monocytes # (Manual) 0.3 K/mm3 (0.0-0.8) 10/14/18 23:21 Eosinophils # (Manual) 0.0 K/mm3 (0.0-0.4) 10/14/18 23:21 Basophils # (Manual) 0.0 K/mm3 (0.0-0.1) 10/14/18 23:21 Metamyelocytes # 0.0 K/mm3 10/14/18 23:21 Myelocytes # 0.0 K/mm3 10/14/18 23:21 Promyelocytes # 0.0 K/mm3 10/14/18 23:21 Blast Cells # 0.0 K/mm3 10/14/18 23:21 WBC Morphology Not Reportable 10/14/18 23:21 Hypersegmented Neuts Not Reportable 10/14/18 23:21 Hyposegmented Neuts Not Reportable 10/14/18 23:21 Hypogranular Neuts Not Reportable 10/14/18 23:21 Smudge Cells Not Reportable 10/14/18 23:21 Toxic Granulation Not Reportable 10/14/18 23:21 Toxic Vacuolation Not Reportable 10/14/18 23:21 Dohle Bodies Few 10/14/18 23:21 Pelger-Huet Anomaly Not Reportable 10/14/18 23:21 Barry Rods Not Reportable 10/14/18 23:21 Platelet Estimate Consistent w auto 10/14/18 23:21 Clumped Platelets Not Reportable 10/14/18 23:21 Plt Clumps, EDTA Not Reportable 10/14/18 23:21 Large Platelets Few 10/14/18 23:21 Giant Platelets Not Reportable 10/14/18 23:21 Platelet Satelliting Not Reportable 10/14/18 23:21 Plt Morphology Comment Not Reportable 10/14/18 23:21 RBC Morphology Not Reportable 10/14/18 23:21 Dimorphic RBCs Not Reportable 10/14/18 23:21 Polychromasia Not Reportable 10/14/18 23:21 Hypochromasia Not Reportable 10/14/18 23:21 Poikilocytosis Not Reportable 10/14/18 23:21 Anisocytosis 1+ 10/14/18 23:21 Microcytosis Not Reportable 10/14/18 23:21 Macrocytosis Not Reportable 10/14/18 23:21 Spherocytes Not Reportable 10/14/18 23:21 Pappenheimer Bodies Not Reportable 10/14/18 23:21 Sickle Cells Not Reportable 10/14/18 23:21 Target Cells Not Reportable 10/14/18 23:21 Tear Drop Cells Not Reportable 10/14/18 23:21 Ovalocytes Not Reportable 10/14/18 23:21 Helmet Cells Not Reportable 10/14/18 23:21 Villarreal-[place] Bodies Not Reportable 10/14/18 23:21 [place] Rings Not Reportable 10/14/18 23:21 [place] Cells Not Reportable 10/14/18 23:21 Bite Cells Not Reportable 10/14/18 23:21 Crenated Cell Not Reportable 10/14/18 23:21 Elliptocytes Not Reportable 10/14/18 23:21 Acanthocytes (Spur) Not Reportable 10/14/18 23:21 Rouleaux Not Reportable 10/14/18 23:21 Hemoglobin C Crystals Not Reportable 10/14/18 23:21 Schistocytes Not Reportable 10/14/18 23:21 Malaria parasites Not Reportable 10/14/18 23:21 Mahendra Bodies Not Reportable 10/14/18 23:21 Hem Pathologist Commnt No 10/14/18 23:21 POC ABG pH 7.308 (7.35-7.45) L 10/15/18 13:03 POC ABG pCO2 33.1 (35-45) L 10/15/18 13:03 POC ABG pO2 70 (80-105) L 10/15/18 13:03 POC ABG HCO3 16.6 (22-26 mml/L) 10/15/18 13:03 POC ABG Total CO2 18 (23-27mmol/L) 10/15/18 13:03 POC ABG O2 Sat 92 10/15/18 13:03 POC ABG Base Excess -10 ((-2) - (+3)mmol/L) 10/15/18 13:03 FiO2 50 % 10/15/18 13:03 Sodium 158 mmol/L (137-145) H 10/15/18 09:16 Potassium 4.0 mmol/L (3.6-5.0) 10/15/18 09:16 Chloride 121.1 mmol/L (98-107) H 10/15/18 09:16 Carbon Dioxide 19 mmol/L (22-30) L 10/15/18 09:16 Anion Gap 22 mmol/L 10/15/18 09:16 BUN 120 mg/dL (9-20) H 10/15/18 09:16 Creatinine 4.3 mg/dL (0.8-1.5) H 10/15/18 09:16 Estimated GFR 17 ml/min 10/15/18 09:16 BUN/Creatinine Ratio 28 % 10/15/18 09:16 Glucose 119 mg/dL (75-100) H 10/15/18 09:16 Lactic Acid 2.70 mmol/L (0.7-2.0) H* 10/15/18 15:13 Calcium 8.0 mg/dL (8.4-10.2) L 10/15/18 09:16 Total Bilirubin 0.30 mg/dL (0.1-1.2) 10/14/18 23:21 AST 72 units/L (5-40) H 10/14/18 23:21 ALT 24 units/L (7-56) 10/14/18 23:21 Alkaline Phosphatase 69 units/L (35-129) 10/14/18 23:21 Troponin T 0.034 ng/mL (0.00-0.029) H 10/14/18 23:21 Total Protein 7.5 g/dL (6.3-8.2) 10/14/18 23:21 Albumin 1.9 g/dL (3.9-5) L 10/14/18 23:21 Albumin/Globulin Ratio 0.3 % 10/14/18 23:21 Triglycerides 63 mg/dL (2-149) 10/14/18 23:21 Cholesterol 59 mg/dL (50-199) 10/14/18 23:21 LDL Cholesterol Direct 13 mg/dL (50-130) L 10/14/18 23:21 HDL Cholesterol 28 mg/dL (40-59) L 10/14/18 23:21 Cholesterol/HDL Ratio 2.10 % 10/14/18 23:21 Urine Color [place] (Yellow) 10/14/18 01:27 Urine Turbidity Cloudy (Clear) 10/14/18 01:27 Urine pH 5.0 (5.0-7.0) 10/14/18 01:27 Ur Specific [place] 1.020 (1.003-1.030) 10/14/18 01:27 Urine Protein 100 mg/dl mg/dL (Negative) 10/14/18 01:27 Urine Glucose (UA) Neg mg/dL (Negative) 10/14/18 01:27 Urine Ketones Neg mg/dL (Negative) 10/14/18 01:27 Urine Blood Lg (Negative) 10/14/18 01:27 Urine Nitrite Neg (Negative) 10/14/18 01:27 Urine Bilirubin Neg (Negative) 10/14/18 01:27 Urine Urobilinogen 2.0 mg/dL (<2.0) 10/14/18 01:27 Ur Leukocyte Esterase Neg (Negative) 10/14/18 01:27 Urine WBC (Auto) 6.0 /HPF (0.0-6.0) 10/14/18 01:27 Urine RBC (Auto) 95.0 /HPF (0.0-6.0) 10/14/18 01:27 U Epithel Cells (Auto) < 1.0 /HPF (0-13.0) 10/14/18 01:27 Amorphous Crystals 3+ 10/14/18 01:27 Hyaline Casts 4 /LPF 10/14/18 01:27 Granular Casts 2 /LPF 10/14/18 01:27 Urine Mucus 1+ /HPF 10/14/18 01:27 Active Medications - Current Medications Current Medications: Generic Name Dose Route Start Last Admin Trade Name Freq PRN Reason Stop Dose Admin Acetaminophen 650 mg 10/15/18 03:28 Tylenol PO Q4H PRN Pain MILD(1-3)/Fever >100.5/DELGADO Albuterol/Ipratropium 1 ampul 10/15/18 14:00 Duoneb *Not For Prn Use* IH Q6HRT BLOSSOM Budesonide 0.5 mg 10/15/18 20:00 Pulmicort IH Q12HRT BLOSSOM Enoxaparin Sodium 30 mg 10/15/18 10:00 10/15/18 09:46 Lovenox SUB-Q 30 mg QDAY BLOSSOM Administration Famotidine 20 mg 10/15/18 10:00 10/15/18 09:46 Pepcid IV 20 mg QAM BLOSSOM Administration Dextrose 1,000 mls @ 125 mls/hr 10/15/18 12:00 D5w IV DIRECT BLOSSOM Norepinephrine 4 mg in 250 mls @ 7.5 mls/hr 10/15/18 13:00 Levophed Drip 4 Mg/Ns 250 Ml IV TITR BLOSSOM Protocol 2 MCG/MIN Cefepime HCl 2 gm in 100 mls @ 200 mls/hr 10/15/18 16:00 Maxipime/Ns 2 Gm/100 Ml IV Q24H [facility] Protocol Metronidazole 500 mg in 100 mls @ 100 mls/hr 10/15/18 15:00 Flagyl 500 Mg/100 Ml IV Q8HR [facility] Protocol Methylprednisolone Sodium Succinate 125 mg 10/15/18 14:00 Solu-Medrol IV Q8HR [facility] Morphine Sulfate 2 mg 10/15/18 03:28 Morphine IV Q4H PRN Pain, Moderate (4-6) Ondansetron HCl 4 mg 10/15/18 03:28 Zofran IV Q8H PRN Nausea And Vomiting Sodium Chloride 10 ml 10/15/18 10:00 10/15/18 09:46 Sodium Chloride Flush Syringe 10 Ml IV 10 ml BID BLOSSOM Administration Sodium Chloride 10 ml 10/15/18 03:28 Sodium Chloride Flush Syringe 10 Ml IV PRN PRN LINE FLUSH
[2018-10-15] MEDS: MAXIPIME/NS 2 GM/100 ML 2 GM/100 ML BAG IV SCH (20:02)
[2018-10-15] MEDS ORDERED: LEVOPHED DRIP 4 MG/NS 250 ML 4 MG/250 ML BAG IV ONE (22:15)
[2018-10-15] MEDS: LEVOPHED DRIP 4 MG/NS 250 ML 4 MG/250 ML BAG IV SCH (22:32)
[2018-10-15] MEDS: DUONEB *Not for PRN Use IH SCH (22:44)
[2018-10-15] MEDS: PULMICORT IH SCH (22:45)
[2018-10-16] MEDS ORDERED: FLAGYL 500 MG/100 ML 500 MG/100 ML BAG IV ONE (00:24)
[2018-10-16] MEDS ORDERED: NACL 0.9% 1000 ML 1,000 ML IV SCH (03:00)
[2018-10-16 05:28] LABS: Hematocrit 34.9 % (35.5-45.6); Hemoglobin 10.8 gm/dl (11.8-15.2); Mean Corpuscular HGB Conc 31 % (32-34); Mean Corpuscular Volume 89 fl (84-94); Red Blood Count 3.93 M/mm3 (3.65-5.03); Red Cell Distribution Width 19.6 % (13.2-15.2)
[2018-10-16 05:53] LABS: Albumin 1.5 g/dL (3.9-5); Calcium 8.4 mg/dL (8.4-10.2)
[2018-10-16] MEDS: DUONEB *Not for PRN Use IH SCH ×5 (06:29→20:04)
[2018-10-16] MEDS: FLAGYL 500 MG/100 ML 500 MG/100 ML BAG IV SCH ×4 (06:50→21:32)
[2018-10-16] MEDS: SOLU-Medrol IV SCH ×5 (06:51→21:31)
[2018-10-16] MEDS ORDERED: NACL 0.45% 1000 ML 1,000 ML IV SCH (07:00)
[2018-10-16] MEDS: SODIUM CHLORIDE FLUSH SYRINGE 10 ML IV SCH ×3 (07:03→21:32)
[2018-10-16 07:17] LABS: Anisocytosis 1+; Band Neutrophils # (Manual) 1.7 K/mm3; Basophils % (Manual) 0 % (0.0-1.8); Dohle Bodies Few; Eosinophils % (Manual) 0 % (0.0-4.3); Total Cells Counted 100
[2018-10-16 07:19] LABS: Platelet Count 38 K/mm3 (140-440); Platelet Estimate Consistent w Auto
[2018-10-16] MEDS: PULMICORT IH SCH ×2 (08:39→20:04)
[2018-10-16] MEDS: PEPCID IV SCH (09:13)
[2018-10-16] MEDS: LOVENOX SUB-Q SCH (09:13)
[2018-10-16] MEDS ORDERED: DULCOLAX PR PRN (10:30)
[2018-10-16] MEDS ORDERED: COLACE FEEDTUBE PRN (10:30)
[2018-10-16] MEDS ORDERED: MIRALAX 3350 FEEDTUBE PRN (10:30)
[2018-10-16] MEDS ORDERED: PROVENTIL IH PRN (10:30)
[2018-10-16] MEDS: D5W 1,000 ML IV SCH ×2 (10:54→21:25)
[2018-10-16] MEDS ORDERED: MUCOMYST ORAL PO SCH (11:00)
[2018-10-16] MEDS ORDERED: POTASSIUM CHLORIDE FEEDTUBE ONE ×2 (11:00→14:00)
--- NOTE | 2018-10-16 11:34 | XRay Report ---
Single view abdomen: History: Check placement of PEG tube. Findings: Tip of PEG tube appears to be in the stomach. Air is identified in the stomach. Impression: Tip of PEG tube appears to be in the stomach.
[2018-10-16] MEDS: TRANSDERM-SCOP TD SCH (13:19)
--- NOTE | 2018-10-16 15:04 | Progress Note ---
Assessment and Plan Cultures: Blood culture 10/14/2018 1 of 4 GPC in clusters. Urine culture 10/14/2018 negative Assessment: 58-year-old male with history of HIV AIDS, cachexia, toxoplasmosis, CVA with residual weakness, status post tracheostomy reversal for previous respiratory failure, syphilitic encephalitis, traumatic brain injury, cocaine and tobacco abuse, fdc resident at [place]; readmitted on 10/14/2018 due to AMS/lethargic and worsening shortness of breath for 34 hours. Patient is not able to provide a history, currently non verbal in mild respiratory distress. 1) Sepsis: still on pressors. Etiology most likely pneumonia +/- GPC bacteremia 2) Pneumonia: possible aspiration pneumonia vs HAP. CXR showed probably COPD and right sided pneumonia. 3) GPC bacteremia: ? real v/s contaminant. Blood culture 10/14/2018 1 of 4 GPC in clusters. Source unclear. 4) Recent bilateral pneumonia, R>L causing acute respiratory failure, it was felt probably HCAP vs aspiration treated with cefepime and flagyl IV then changed to augmentin suspension 875mg PO BID for total 7 days. admission 08/27- 09/01/2018 5) HIV / AIDS: last viral load in March 2018 was undetectable and CD4 count was more than 700 on tenofovir, lamivudine, ritonavir boosted darunavir 6) Acute on Chronic respiratory failure 7) Acute on chronic encephalopathy 8) Cachexia Recommendations: - follow-up initial blood cultures - repeat blood culture today - obtain TTE - obtain sputum culture - obtain CD4/VL - stool cultures and C diff - continue cefepime, flagyl and vancomycin renally adjusted D2 - hold off ART for now as DAMON Poor prognosis Will follow. Swati Mchugh MD Infectious Diseases Loan Representative [facility] ([facility] M [phone] O [phone] Subjective Date of service: 10/16/18 Objective - Constitutional Vitals: Vital Signs Temp Pulse Resp BP Pulse Ox 99.4 F 113 H 24 83/52 100 10/15/18 07:48 10/16/18 14:49 10/16/18 14:49 10/16/18 11:30 10/16/18 11:30 - Labs CBC & Chem 7: 10/16/18 05:18 10/16/18 05:18 Labs: Abnormal lab results 0510/16/18 10/16/18 Range/Units 15:13 05:18 05:18 WBC 4.2 L (4.5-11.0) K/mm3 Hgb 10.8 L (11.8-15.2) gm/dl Hct 34.9 L (35.5-45.6) % MCH 27 L (28-32) pg MCHC 31 L (32-34) % RDW 19.6 H (13.2-15.2) % Plt Count 38 L (140-440) K/mm3 Seg Neuts % (Manual) 39.0 L (40.0-70.0) % Lymphocytes % (Manual) 9.0 L (13.4-35.0) % Monocytes % (Manual) 12.0 H (0.0-7.3) % Seg Neutrophils # Man 1.6 L (1.8-7.7) K/mm3 Lymphocytes # (Manual) 0.4 L (1.2-5.4) K/mm3 Sodium 161 H* (137-145) mmol/L Potassium 3.5 L (3.6-5.0) mmol/L Chloride 130.6 H (98-107) mmol/L Carbon Dioxide 18 L (22-30) mmol/L BUN 105 H (9-20) mg/dL Creatinine 3.4 H (0.8-1.5) mg/dL Lactic Acid 2.70 H* (0.7-2.0) mmol/L AST 522 H (5-40) units/L ALT 167 H (7-56) units/L Albumin 1.5 L (3.9-5) g/dL Free T4 (0.76-1.46) ng/dL Thyroxine (T4) (4.0-12.0) ug/dL 10/16/18 10/16/18 Range/Units 12:40 12:40 WBC (4.5-11.0) K/mm3 Hgb (11.8-15.2) gm/dl Hct (35.5-45.6) % MCH (28-32) pg MCHC (32-34) % RDW (13.2-15.2) % Plt Count (140-440) K/mm3 Seg Neuts % (Manual) (40.0-70.0) % Lymphocytes % (Manual) (13.4-35.0) % Monocytes % (Manual) (0.0-7.3) % Seg Neutrophils # Man (1.8-7.7) K/mm3 Lymphocytes # (Manual) (1.2-5.4) K/mm3 Sodium (137-145) mmol/L Potassium (3.6-5.0) mmol/L Chloride (98-107) mmol/L Carbon Dioxide (22-30) mmol/L BUN (9-20) mg/dL Creatinine (0.8-1.5) mg/dL Lactic Acid (0.7-2.0) mmol/L AST (5-40) units/L ALT (7-56) units/L Albumin (3.9-5) g/dL Free T4 0.38 L (0.76-1.46) ng/dL Thyroxine (T4) 1.8 L (4.0-12.0) ug/dL
--- NOTE | 2018-10-16 15:15 | Progress Note ---
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 Acute renal failure (likely due to dehydration) H/O cocaine abuse Anemia (multi-factorial) - deploy BIPAP scheduled qhs - continue aspiration precautions - continue bronchodilators with pulmonary hygiene per RT - get ABG now and address - continue to wean levophed for target MAP > 65 mmHg - continue free water flushes for hypernatremia (250mls q6h) - continue isotonic IV fluids also - get stat lactate levels and address - reduced solumedrol to 40 mg IV q8h - stopped Lovenox re: thrombocytopenia - placed nutrition consult and resume enteral nutrition as tolerated - continue GI prophylaxis - nephrology consultation per attending - continue Anti-infectives per ID rec's - Monitor renal indices closely - Avoid nephrotoxic agents, adjust all medications for CrCL - Strict intake and output monitoring - Accuchecks with glycemic control. Target glucose of 140-180 mg/dL - Maintenance of sleep -wake cycle - Mobility as tolerated by hemodynamics - Influenza and pneumonia vaccination per protocol ..discussed in ICU-IDT rounds PROGNOSIS: GUARDED CONDITION: CRITICAL CODE STATUS: FULL CODE The high probability of a clinically significant, sudden or life-threatening deterioration of the [respiratory] system(s) required my full and direct attention, intervention and personal management. The aggregate critical care time was [35] minutes without overlap. Time includes spent on; [x] Data Review and interpretation [x] Patient assessment and monitoring of vital signs [x] Documentation [x] Medication orders and management Subjective Date of service: 10/16/18 Interval history: Patient is seen today for: Acute Hypoxemic Respiratory Failure; Right midlung pneumonia (HAP); Tracheostomy status; COPD; Acute encephalopathy ; HIV/AIDS (viral load and CD4 unknown); H/o toxoplasmosis; H/o syphilitic encephalopathy Seen and examined at bedside; 24hour events reviewed; nursing and respiratory care staff consulted; no adverse overnight events reported to me; remains on supplemental oxygen; on 50% venti-mask; slow to respond but appears appropriate at times; no emesis or overt aspiration; remains on systemic steroids; no seizures and no gross bleeding; remains on levophed at 4 mics/min Objective Vital Signs - 12hr 10/16/18 10/16/18 10/16/18 03:21 03:31 03:41 Pulse Rate 70 70 Pulse Rate [ Anterior Bilateral Throughout] Respiratory 28 H Rate Respiratory Rate [Anterior Bilateral Throughout] Blood Pressure 82/43 84/46 95/59 O2 Sat by Pulse 91 Oximetry 10/16/18 10/16/18 10/16/18 03:51 04:01 04:11 Pulse Rate 70 138 H 70 Pulse Rate [ Anterior Bilateral Throughout] Respiratory 16 Rate Respiratory Rate [Anterior Bilateral Throughout] Blood Pressure 88/62 88/62 84/46 O2 Sat by Pulse 93 98 Oximetry 10/16/18 10/16/18 10/16/18 04:21 04:31 04:41 Pulse Rate 70 Pulse Rate [ Anterior Bilateral Throughout] Respiratory 28 H 17 20 Rate Respiratory Rate [Anterior Bilateral Throughout] Blood Pressure 112/59 106/48 106/48 O2 Sat by Pulse 71 L 94 Oximetry 10/16/18 10/16/18 10/16/18 04:51 05:00 05:11 Pulse Rate 70 Pulse Rate [ Anterior Bilateral Throughout] Respiratory 28 H 33 H 23 Rate Respiratory Rate [Anterior Bilateral Throughout] Blood Pressure 84/57 90/51 90/51 O2 Sat by Pulse 95 98 97 Oximetry 10/16/18 10/16/18 10/16/18 05:21 05:30 05:41 Pulse Rate Pulse Rate [ Anterior Bilateral Throughout] Respiratory 21 29 H 21 Rate Respiratory Rate [Anterior Bilateral Throughout] Blood Pressure 92/58 86/53 86/53 O2 Sat by Pulse 97 96 97 Oximetry 10/16/18 10/16/18 10/16/18 05:51 06:01 06:11 Pulse Rate Pulse Rate [ Anterior Bilateral Throughout] Respiratory 28 H 22 22 Rate Respiratory Rate [Anterior Bilateral Throughout] Blood Pressure 80/53 82/52 82/52 O2 Sat by Pulse 98 98 97 Oximetry 10/16/18 10/16/18 10/16/18 06:21 06:30 06:41 Pulse Rate 75 Pulse Rate [ Anterior Bilateral Throughout] Respiratory 24 26 H 20 Rate Respiratory Rate [Anterior Bilateral Throughout] Blood Pressure 83/56 80/54 80/54 O2 Sat by Pulse 97 99 Oximetry 10/16/18 10/16/18 10/16/18 06:51 07:01 07:11 Pulse Rate 74 75 75 Pulse Rate [ Anterior Bilateral Throughout] Respiratory 20 29 H 25 H Rate Respiratory Rate [Anterior Bilateral Throughout] Blood Pressure 98/62 96/59 96/59 O2 Sat by Pulse Oximetry 10/16/18 10/16/18 10/16/18 07:21 07:30 07:41 Pulse Rate 75 75 76 Pulse Rate [ Anterior Bilateral Throughout] Respiratory 29 H 29 H 26 H Rate Respiratory Rate [Anterior Bilateral Throughout] Blood Pressure 93/53 87/57 87/57 O2 Sat by Pulse 99 Oximetry 10/16/18 10/16/18 10/16/18 07:51 08:00 08:11 Pulse Rate 76 77 75 Pulse Rate [ Anterior Bilateral Throughout] Respiratory 22 27 H 28 H Rate Respiratory Rate [Anterior Bilateral Throughout] Blood Pressure 83/54 82/51 82/51 O2 Sat by Pulse 100 Oximetry 10/16/18 10/16/18 10/16/18 08:17 08:21 08:25 Pulse Rate 77 Pulse Rate [ 75 78 Anterior Bilateral Throughout] Respiratory 26 H Rate Respiratory 18 18 Rate [Anterior Bilateral Throughout] Blood Pressure 91/56 O2 Sat by Pulse 81 L Oximetry 10/16/18 10/16/18 10/16/18 08:30 08:41 08:51 Pulse Rate 77 78 79 Pulse Rate [ Anterior Bilateral Throughout] Respiratory 23 25 H 30 H Rate Respiratory Rate [Anterior Bilateral Throughout] Blood Pressure 97/58 97/58 87/59 O2 Sat by Pulse 93 50 L Oximetry 10/16/18 10/16/18 10/16/18 09:00 09:11 09:21 Pulse Rate 79 82 82 Pulse Rate [ Anterior Bilateral Throughout] Respiratory 30 H 26 H 36 H Rate Respiratory Rate [Anterior Bilateral Throughout] Blood Pressure 87/56 87/56 97/52 O2 Sat by Pulse 44 L 98 Oximetry 10/16/18 10/16/18 10/16/18 09:30 09:41 09:51 Pulse Rate 83 84 86 Pulse Rate [ Anterior Bilateral Throughout] Respiratory 32 H 36 H 35 H Rate Respiratory Rate [Anterior Bilateral Throughout] Blood Pressure 74/45 74/45 74/45 O2 Sat by Pulse 94 94 91 Oximetry 10/16/18 10/16/18 10/16/18 09:52 10:00 10:11 Pulse Rate 87 89 Pulse Rate [ Anterior Bilateral Throughout] Respiratory 35 H 39 H Rate Respiratory Rate [Anterior Bilateral Throughout] Blood Pressure 80/54 80/54 O2 Sat by Pulse 91 93 93 Oximetry 10/16/18 10/16/18 10/16/18 10:21 10:30 10:41 Pulse Rate 90 92 H 95 H Pulse Rate [ Anterior Bilateral Throughout] Respiratory 37 H 19 24 Rate Respiratory Rate [Anterior Bilateral Throughout] Blood Pressure 82/51 81/39 81/39 O2 Sat by Pulse 92 97 95 Oximetry 10/16/18 10/16/18 10/16/18 10:51 11:01 11:11 Pulse Rate 96 H 98 H 99 H Pulse Rate [ Anterior Bilateral Throughout] Respiratory 20 28 H 21 Rate Respiratory Rate [Anterior Bilateral Throughout] Blood Pressure 76/51 86/50 86/50 O2 Sat by Pulse 96 98 96 Oximetry 10/16/18 10/16/18 10/16/18 11:21 11:30 14:49 Pulse Rate 100 H 102 H Pulse Rate [ 113 H Anterior Bilateral Throughout] Respiratory 29 H 29 H Rate Respiratory 24 Rate [Anterior Bilateral Throughout] Blood Pressure 76/51 83/52 O2 Sat by Pulse 98 100 Oximetry Constitutional: appears uncomfortable, other (middle aged and chronically ill looking AAM with increased resp effort at rest) Eyes: non-icteric ENT: oropharynx moist, other (mallampati 2) Neck: supple, no lymphadenopathy, no JVD, other (no thyromegaly) Effort: mildly labored Ascultation: Bilateral: diminished breath sounds, rhonchi Percussion: Bilateral: not dull Cardiovascular: regular rate and rhythm Gastrointestinal: normoactive bowel sounds, soft, non-tender, non-distended Integumentary: other (poor turgor) Extremities: no cyanosis, no edema, pulses normal, no ischemia or petechiae Neurologic: pupils equal and round, other (+ pedal contractures) Psychiatric: other (flat ) CBC and BMP: 10/16/18 05:18 10/16/18 05:18 ABG, PT/INR, D-dimer: ABG POC ABG pH 7.308 (7.35-7.45) L 10/15/18 13:03 POC ABG pCO2 33.1 (35-45) L 10/15/18 13:03 POC ABG pO2 70 (80-105) L 10/15/18 13:03 POC ABG HCO3 16.6 (22-26 mml/L) 10/15/18 13:03 POC ABG Total CO2 18 (23-27mmol/L) 10/15/18 13:03 POC ABG O2 Sat 92 10/15/18 13:03 Abnormal lab findings: Abnormal Labs 10/14/18 10/14/18 10/14/18 23:21 23:21 23:21 WBC Hgb 10.2 L Hct 32.0 L MCH MCHC RDW 18.9 H Plt Count 100 L Seg Neuts % (Manual) 34.0 L Lymphocytes % (Manual) Monocytes % (Manual) Seg Neutrophils # Man 1.7 L Lymphocytes # (Manual) 0.8 L POC ABG pH POC ABG pCO2 POC ABG pO2 Sodium 156 H Potassium Chloride 117.8 H Carbon Dioxide 19 L BUN 124 H Creatinine 4.8 H Glucose Lactic Acid 4.90 H* Calcium AST 72 H ALT Troponin T 0.034 H Albumin 1.9 L LDL Cholesterol Direct 13 L HDL Cholesterol 28 L Free T4 Thyroxine (T4) 10/15/18 10/15/18 10/15/18 00:50 03:46 04:29 WBC Hgb Hct MCH MCHC RDW Plt Count Seg Neuts % (Manual) Lymphocytes % (Manual) Monocytes % (Manual) Seg Neutrophils # Man Lymphocytes # (Manual) POC ABG pH POC ABG pCO2 POC ABG pO2 Sodium Potassium Chloride Carbon Dioxide BUN Creatinine Glucose Lactic Acid 3.30 H* 2.20 H* 2.20 H* Calcium AST ALT Troponin T Albumin LDL Cholesterol Direct HDL Cholesterol Free T4 Thyroxine (T4) 10/15/18 10/15/18 10/15/18 05:37 06:18 09:16 WBC Hgb Hct MCH MCHC RDW Plt Count Seg Neuts % (Manual) Lymphocytes % (Manual) Monocytes % (Manual) Seg Neutrophils # Man Lymphocytes # (Manual) POC ABG pH POC ABG pCO2 POC ABG pO2 Sodium Potassium Chloride Carbon Dioxide BUN Creatinine Glucose Lactic Acid 2.30 H* 2.50 H* 3.10 H* Calcium AST ALT Troponin T Albumin LDL Cholesterol Direct HDL Cholesterol Free T4 Thyroxine (T4) 10/15/18 10/15/18 10/15/18 09:16 13:03 15:13 WBC Hgb Hct MCH MCHC RDW Plt Count Seg Neuts % (Manual) Lymphocytes % (Manual) Monocytes % (Manual) Seg Neutrophils # Man Lymphocytes # (Manual) POC ABG pH 7.308 L POC ABG pCO2 33.1 L POC ABG pO2 70 L Sodium 158 H Potassium Chloride 121.1 H Carbon Dioxide 19 L BUN 120 H Creatinine 4.3 H Glucose 119 H Lactic Acid 2.70 H* Calcium 8.0 L AST ALT Troponin T Albumin LDL Cholesterol Direct HDL Cholesterol Free T4 Thyroxine (T4) 10/16/18 10/16/18 10/16/18 05:18 05:18 12:40 WBC 4.2 L Hgb 10.8 L Hct 34.9 L MCH 27 L MCHC 31 L RDW 19.6 H Plt Count 38 L Seg Neuts % (Manual) 39.0 L Lymphocytes % (Manual) 9.0 L Monocytes % (Manual) 12.0 H Seg Neutrophils # Man 1.6 L Lymphocytes # (Manual) 0.4 L POC ABG pH POC ABG pCO2 POC ABG pO2 Sodium 161 H* Potassium 3.5 L Chloride 130.6 H Carbon Dioxide 18 L BUN 105 H Creatinine 3.4 H Glucose Lactic Acid Calcium AST 522 H ALT 167 H Troponin T Albumin 1.5 L LDL Cholesterol Direct HDL Cholesterol Free T4 0.38 L Thyroxine (T4) 10/16/18 12:40 WBC Hgb Hct MCH MCHC RDW Plt Count Seg Neuts % (Manual) Lymphocytes % (Manual) Monocytes % (Manual) Seg Neutrophils # Man Lymphocytes # (Manual) POC ABG pH POC ABG pCO2 POC ABG pO2 Sodium Potassium Chloride Carbon Dioxide BUN Creatinine Glucose Lactic Acid Calcium AST ALT Troponin T Albumin LDL Cholesterol Direct HDL Cholesterol Free T4 Thyroxine (T4) 1.8 L Chest x-ray: image reviewed (Right mid lung zones predominant infiltrate) Allied health notes reviewed: nursing
[2018-10-16] MEDS: LEVOPHED DRIP 4 MG/NS 250 ML 4 MG/250 ML BAG IV SCH (15:45)
[2018-10-16] MEDS: MAXIPIME/NS 2 GM/100 ML 2 GM/100 ML BAG IV SCH (15:50)
[2018-10-16] MEDS ORDERED: PANCREAZE DR 10,500 UNIT FEEDTUBE PRN (16:25)
[2018-10-16] MEDS ORDERED: SODIUM BICARBONATE FEEDTUBE PRN (16:25)
[2018-10-16] MEDS ORDERED: SIMPLE SYRUP FEEDTUBE PRN ×2 (16:25)
[2018-10-16] MEDS: SENOKOT FEEDTUBE SCH (21:31)
[2018-10-16] MEDS ORDERED: ANTIBIOTIC OINT TP SCH (22:00)
--- NOTE | 2018-10-16 22:00 | Progress Note ---
Assessment and Plan Assessment and plan: 58 year old man with history of HIV, toxoplasmosis, severe the reservoir deficits, syphilitic encephalopathy, history of polysubstance abuse including cocaine. He status post trach and tree traversal, has a g-tube still intact. The patient was brought from [facility] for respiratory distress and altered mental status Sepsis secondary to pneumonia, septic shock Infectious disease consultants, continue antibiotics, cont IV pressors, IV fluids Acute kidney injury due to vasomotor nephropathy and ATN IV fluids, nephrology Hypernatremia Hypotonic IV fluid, free water via g-tube Acute hypoxic respiratory failure Continue oxygen via venti mask and BiPAP as tolerated Hypothyroidism thyroid function tests show low T4 and low free T4, increase synthroid dose DVT prophylaxis with heparin subcutaneously cct 33 minutes History Interval history: fever resolved, less confused, less agitated, still sob, but having less respiratory distress no vomiting, no reported cp, no seizures Hospitalist Physical - Physical exam Narrative exam: General.: Appears ill and toxic , emaciated HEENT: Moist mucous membranes, extraocular muscles intact, no lymphadenopathy Neck: supple Cardiac: S1-S2 heard Lungs: crackles Abdomen: soft , nontender, nondistended, bowel sounds positive Extremities: no edema clubbing or cyanosis, contracted extremities Skin: no rash or lesions Neurologic: altered, moved extremiites, does not obey commands Psych: does not obey commands, lethargic - Constitutional Vitals: Temp Pulse Resp BP Pulse Ox 98.6 F 112 H 29 H 100/62 100 10/16/18 20:00 10/16/18 20:21 10/16/18 20:21 10/16/18 20:21 10/16/18 20:21 General appearance: Present: severe distress, cachectic Results - Labs CBC & Chem 7: 10/16/18 05:18 10/16/18 05:18 Labs: Laboratory Last Values WBC 4.2 K/mm3 (4.5-11.0) L 10/16/18 05:18 RBC 3.93 M/mm3 (3.65-5.03) 10/16/18 05:18 Hgb 10.8 gm/dl (11.8-15.2) L 10/16/18 05:18 Hct 34.9 % (35.5-45.6) L 10/16/18 05:18 MCV 89 fl (84-94) 10/16/18 05:18 MCH 27 pg (28-32) L 10/16/18 05:18 MCHC 31 % (32-34) L 10/16/18 05:18 RDW 19.6 % (13.2-15.2) H 10/16/18 05:18 Plt Count 38 K/mm3 (140-440) L 10/16/18 05:18 Lymph % (Auto) Patient Svcs Mgr 10/14/18 23:21 Addison % (Auto) Patient Svcs Mgr 10/14/18 23:21 Eos % (Auto) Patient Svcs Mgr 10/14/18 23:21 Baso % (Auto) Patient Svcs Mgr 10/14/18 23:21 Lymph # Patient Svcs Mgr 10/14/18 23:21 Addison # Patient Svcs Mgr 10/14/18 23:21 Eos # Patient Svcs Mgr 10/14/18 23:21 Baso # Patient Svcs Mgr 10/14/18 23:21 Add Manual Diff Complete 10/16/18 05:18 Total Counted 100 10/16/18 05:18 Seg Neutrophils % Patient Svcs Mgr 10/14/18 23:21 Seg Neuts % (Manual) 39.0 % (40.0-70.0) L 10/16/18 05:18 Band Neutrophils % 40.0 % 10/16/18 05:18 Lymphocytes % (Manual) 9.0 % (13.4-35.0) L 10/16/18 05:18 Reactive Lymphs % (Man) 0 % 10/16/18 05:18 Monocytes % (Manual) 12.0 % (0.0-7.3) H 10/16/18 05:18 Eosinophils % (Manual) 0 % (0.0-4.3) 10/16/18 05:18 Basophils % (Manual) 0 % (0.0-1.8) 10/16/18 05:18 Metamyelocytes % 0 % 10/16/18 05:18 Myelocytes % 0 % 10/16/18 05:18 Promyelocytes % 0 % 10/16/18 05:18 Blast Cells % 0 % 10/16/18 05:18 Nucleated RBC % Not Reportable 10/16/18 05:18 Seg Neutrophils # Patient Svcs Mgr 10/14/18 23:21 Seg Neutrophils # Man 1.6 K/mm3 (1.8-7.7) L 10/16/18 05:18 Band Neutrophils # 1.7 K/mm3 10/16/18 05:18 Lymphocytes # (Manual) 0.4 K/mm3 (1.2-5.4) L 10/16/18 05:18 Abs React Lymphs (Man) 0.0 K/mm3 10/16/18 05:18 Monocytes # (Manual) 0.5 K/mm3 (0.0-0.8) 10/16/18 05:18 Eosinophils # (Manual) 0.0 K/mm3 (0.0-0.4) 10/16/18 05:18 Basophils # (Manual) 0.0 K/mm3 (0.0-0.1) 10/16/18 05:18 Metamyelocytes # 0.0 K/mm3 10/16/18 05:18 Myelocytes # 0.0 K/mm3 10/16/18 05:18 Promyelocytes # 0.0 K/mm3 10/16/18 05:18 Blast Cells # 0.0 K/mm3 10/16/18 05:18 WBC Morphology Not Reportable 10/16/18 05:18 Hypersegmented Neuts Not Reportable 10/16/18 05:18 Hyposegmented Neuts Not Reportable 10/16/18 05:18 Hypogranular Neuts Not Reportable 10/16/18 05:18 Smudge Cells Not Reportable 10/16/18 05:18 Toxic Granulation Not Reportable 10/16/18 05:18 Toxic Vacuolation Not Reportable 10/16/18 05:18 Dohle Bodies Few 10/16/18 05:18 Pelger-Huet Anomaly Not Reportable 10/16/18 05:18 Barry Rods Not Reportable 10/16/18 05:18 Platelet Estimate Consistent w auto 10/16/18 05:18 Clumped Platelets Not Reportable 10/16/18 05:18 Plt Clumps, EDTA Not Reportable 10/16/18 05:18 Large Platelets Not Reportable 10/16/18 05:18 Giant Platelets Not Reportable 10/16/18 05:18 Platelet Satelliting Not Reportable 10/16/18 05:18 Plt Morphology Comment Not Reportable 10/16/18 05:18 RBC Morphology Not Reportable 10/16/18 05:18 Dimorphic RBCs Not Reportable 10/16/18 05:18 Polychromasia Not Reportable 10/16/18 05:18 Hypochromasia Not Reportable 10/16/18 05:18 Poikilocytosis Not Reportable 10/16/18 05:18 Anisocytosis 1+ 10/16/18 05:18 Microcytosis Not Reportable 10/16/18 05:18 Macrocytosis Not Reportable 10/16/18 05:18 Spherocytes Not Reportable 10/16/18 05:18 Pappenheimer Bodies Not Reportable 10/16/18 05:18 Sickle Cells Not Reportable 10/16/18 05:18 Target Cells Not Reportable 10/16/18 05:18 Tear Drop Cells Not Reportable 10/16/18 05:18 Ovalocytes Not Reportable 10/16/18 05:18 Helmet Cells Not Reportable 10/16/18 05:18 Villarreal-[place] Bodies Not Reportable 10/16/18 05:18 [place] Rings Not Reportable 10/16/18 05:18 [place] Cells Not Reportable 10/16/18 05:18 Bite Cells Not Reportable 10/16/18 05:18 Crenated Cell Not Reportable 10/16/18 05:18 Elliptocytes Not Reportable 10/16/18 05:18 Acanthocytes (Spur) Not Reportable 10/16/18 05:18 Rouleaux Not Reportable 10/16/18 05:18 Hemoglobin C Crystals Not Reportable 10/16/18 05:18 Schistocytes Not Reportable 10/16/18 05:18 Malaria parasites Not Reportable 10/16/18 05:18 Mahendra Bodies Not Reportable 10/16/18 05:18 Hem Pathologist Commnt No 10/16/18 05:18 POC ABG pH 7.364 (7.35-7.45) 10/16/18 15:19 POC ABG pCO2 33.1 (35-45) L 10/15/18 13:03 POC ABG pO2 62 (80-105) L 10/16/18 15:19 POC ABG HCO3 14.9 (22-26 mml/L) 10/16/18 15:19 POC ABG Total CO2 16 (23-27mmol/L) 10/16/18 15:19 POC ABG O2 Sat 91 10/16/18 15:19 POC ABG Base Excess -10 ((-2) - (+3)mmol/L) 10/16/18 15:19 FiO2 50 % 10/16/18 15:19 Sodium 161 mmol/L (137-145) H* 10/16/18 05:18 Potassium 3.5 mmol/L (3.6-5.0) L 10/16/18 05:18 Chloride 130.6 mmol/L (98-107) H 10/16/18 05:18 Carbon Dioxide 18 mmol/L (22-30) L 10/16/18 05:18 Anion Gap 16 mmol/L 10/16/18 05:18 BUN 105 mg/dL (9-20) H 10/16/18 05:18 Creatinine 3.4 mg/dL (0.8-1.5) H 10/16/18 05:18 Estimated GFR 23 ml/min 10/16/18 05:18 BUN/Creatinine Ratio 31 % 10/16/18 05:18 Glucose 100 mg/dL (75-100) 10/16/18 05:18 Lactic Acid 2.70 mmol/L (0.7-2.0) H* 10/15/18 15:13 Calcium 8.4 mg/dL (8.4-10.2) 10/16/18 05:18 Total Bilirubin 0.40 mg/dL (0.1-1.2) 10/16/18 05:18 AST 522 units/L (5-40) H 10/16/18 05:18 ALT 167 units/L (7-56) H 10/16/18 05:18 Alkaline Phosphatase 61 units/L (35-129) 10/16/18 05:18 Troponin T 0.034 ng/mL (0.00-0.029) H 10/14/18 23:21 Total Protein 6.4 g/dL (6.3-8.2) 10/16/18 05:18 Albumin 1.5 g/dL (3.9-5) L 10/16/18 05:18 Albumin/Globulin Ratio 0.3 % 10/16/18 05:18 Triglycerides 63 mg/dL (2-149) 10/14/18 23:21 Cholesterol 59 mg/dL (50-199) 10/14/18 23:21 LDL Cholesterol Direct 13 mg/dL (50-130) L 10/14/18 23:21 HDL Cholesterol 28 mg/dL (40-59) L 10/14/18 23:21 Cholesterol/HDL Ratio 2.10 % 10/14/18 23:21 TSH 2.560 mlU/mL (0.270-4.200) 10/16/18 12:40 Free T4 0.38 ng/dL (0.76-1.46) L 10/16/18 12:40 Thyroxine (T4) 1.8 ug/dL (4.0-12.0) L 10/16/18 12:40 Urine Color Lindsay (Yellow) 10/14/18 01:27 Urine Turbidity Cloudy (Clear) 10/14/18 01:27 Urine pH 5.0 (5.0-7.0) 10/14/18 01:27 Ur Specific Amalia 1.020 (1.003-1.030) 10/14/18 01:27 Urine Protein 100 mg/dl mg/dL (Negative) 10/14/18 01:27 Urine Glucose (UA) Neg mg/dL (Negative) 10/14/18 01:27 Urine Ketones Neg mg/dL (Negative) 10/14/18 01:27 Urine Blood Lg (Negative) 10/14/18 01:27 Urine Nitrite Neg (Negative) 10/14/18 01:27 Urine Bilirubin Neg (Negative) 10/14/18 01:27 Urine Urobilinogen 2.0 mg/dL (<2.0) 10/14/18 01:27 Ur Leukocyte Esterase Neg (Negative) 10/14/18 01:27 Urine WBC (Auto) 6.0 /HPF (0.0-6.0) 10/14/18 01:27 Urine RBC (Auto) 95.0 /HPF (0.0-6.0) 10/14/18 01:27 U Epithel Cells (Auto) < 1.0 /HPF (0-13.0) 10/14/18 01:27 Amorphous Crystals 3+ 10/14/18 01:27 Hyaline Casts 4 /LPF 10/14/18 01:27 Granular Casts 2 /LPF 10/14/18 01:27 Urine Mucus 1+ /HPF 10/14/18 01:27 Active Medications - Current Medications Current Medications: Generic Name Dose Route Start Last Admin Trade Name Freq PRN Reason Stop Dose Admin Acetaminophen 650 mg 10/15/18 03:28 Tylenol PO Q4H PRN Pain MILD(1-3)/Fever >100.5/DELGADO Albuterol 2.5 mg 10/16/18 10:30 Proventil IH Q4HRT PRN Shortness Of Breath Albuterol/Ipratropium 1 ampul 10/15/18 14:00 10/16/18 20:04 Duoneb *Not For Prn Use* IH 1 ampul Q6HRT BLOSSOM Administration Lipase/Protease/Amylase 1 each 10/16/18 16:[address] 10,500 Unit FEEDTUBE PRN PRN For Clogged Feeding Tube Aspirin 325 mg 10/17/18 10:00 Aspirin FEEDTUBE DAILY BLOSSOM Atorvastatin Calcium 20 mg 10/16/18 22:00 10/16/18 21:31 Lipitor FEEDTUBE 20 mg HS BLOSSOM Administration Bisacodyl 10 mg 10/16/18 10:30 Dulcolax SC DAILY PRN Constipation Budesonide 0.5 mg 10/15/18 20:00 10/16/18 20:04 Pulmicort IH 0.5 mg Q12HRT BLOSSOM Administration Cholecalciferol 2,000 unit 10/17/18 10:00 Vitamin D3 FEEDTUBE QAM BLOSSOM Docusate Sodium 100 mg 10/16/18 10:30 Colace FEEDTUBE Q12H PRN Constipation Famotidine 20 mg 10/15/18 10:00 10/16/18 09:13 Pepcid IV 20 mg QAM BLOSSOM Administration Fluoxetine HCl 40 mg 10/17/18 10:00 Prozac PO QDAY BLOSSOM Dextrose 1,000 mls @ 125 mls/hr 10/15/18 12:00 10/16/18 10:54 D5w IV 125 mls/hr DIRECT BLOSSOM Administration Norepinephrine 4 mg in 250 mls @ 7.5 mls/hr 10/15/18 13:00 10/16/18 16:00 Levophed Drip 4 Mg/Ns 250 Ml IV 6 mcg/min TITR BLOSSOM 22.5 mls/hr Titration Protocol 2 MCG/MIN Cefepime HCl 2 gm in 100 mls @ 200 mls/hr 10/15/18 16:00 10/16/18 15:50 Maxipime/Ns 2 Gm/100 Ml IV 200 mls/hr Q24H BLOSSOM Administration Protocol Metronidazole 500 mg in 100 mls @ 100 mls/hr 10/15/18 15:00 10/16/18 21:32 Flagyl 500 Mg/100 Ml IV 100 mls/hr Q8HR BLOSSOM Administration Protocol Levothyroxine Sodium 50 mcg 10/17/18 06:00 Synthroid PO DAILY@0600 BLOSSOM Methylprednisolone Sodium Succinate 40 mg 10/16/18 14:00 10/16/18 21:31 Solu-Medrol IV 40 mg Q8HR BLOSSOM Administration Morphine Sulfate 2 mg 10/15/18 03:28 Morphine IV Q4H PRN Pain, Moderate (4-6) Ondansetron HCl 4 mg 10/15/18 03:28 Zofran IV Q8H PRN Nausea And Vomiting Polyethylene Glycol 17 gm 10/16/18 10:30 Miralax 3350 FEEDTUBE DAILY PRN Constipation Quetiapine Fumarate 100 mg 10/16/18 11:00 10/16/18 13:20 Seroquel FEEDTUBE Not Given Q8H BLOSSOM Scopolamine 1 each 10/16/18 11:00 10/16/18 13:19 Transderm-Scop TD 1 each Q72H BLOSSOM Administration Senna 17.2 mg 10/16/18 22:00 10/16/18 21:31 Senokot FEEDTUBE 17.2 mg HS BLOSSOM Administration Simple Syrup 15 ml 10/16/18 16:25 Simple Syrup FEEDTUBE PRN PRN Hypoglycemia Simple Syrup 30 ml 10/16/18 16:25 Simple Syrup FEEDTUBE PRN PRN Hypoglycemia Sodium Bicarbonate 325 mg 10/16/18 16:25 Sodium Bicarbonate FEEDTUBE PRN PRN For Clogged Feeding Tube Sodium Chloride 10 ml 10/15/18 10:00 10/16/18 21:32 Sodium Chloride Flush Syringe 10 Ml IV 10 ml BID BLOSSOM Administration Sodium Chloride 10 ml 10/15/18 03:28 Sodium Chloride Flush Syringe 10 Ml IV PRN PRN LINE FLUSH Nutrition/Malnutrition Assess - Dietary Evaluation Nutrition/Malnutrition Findings: Nutrition Notes Start: 10/16/18 16:06 Freq: Status: Active Protocol: Document 10/16/18 16:06 RM (Rec: 10/16/18 16:28 [email or web address]) Nutrition Notes Need for Assessment generated from: MD Order Initial or Follow up Assessment Current Diagnosis COPD,Sepsis,Respiratory Failure,Stroke Other Pertinent Diagnosis HIV/AIDS, Pneu, PEG Current Diet NPO Labs/Tests Na 161 Pertinent Medications Solu-Medrol Height 5 ft 3 in Weight 52 kg Duncan Body Weight (kg) 56.36 BMI 20.2 Subjective/Other Information Consulted for TF recommendation. Water flush of 250 mls q 6 hrs ordered by MD to address hypernatremia. Burn Absent Trauma Absent #1 Nutrition Diagnosis Inadequate oral intake Etiology CVA As Evidenced by Signs and Symptoms pt requiring enteral nutrition to meet nutritional needs Is patient on ventilator? No Is Patient Ambulatory and/or Out of Bed No REE-([facility]-confined to bed) 1487.100 Calculation Used for Recommendations [facility] Additional Notes Protein Needs: 62-104g (1.2-2g /kg) Fluid Needs: 1 ml/kcal Nutrition Intervention Nutrition Support: Vital 1.2 at 50 ml/hr. Water flush of 250 mls q 6 hrs until hypernatremia resolves. Water flush of 100 mls q 4 hrs once hyperntreami resolves. Kcal 1,440 Protein (gm) 90 Fluid (mL) 973 Goal #1 TF tolerance Goal #2 Meet at least 80% of calorie and protein needs via TF Anticipated Discharge Needs: TF Follow-Up By: 10/18/18 Additional Comments Follow for new TF, Na lab
[2018-10-17] MEDS: LEVOPHED DRIP 4 MG/NS 250 ML 4 MG/250 ML BAG IV SCH ×2 (02:49→15:45)
--- NOTE | 2018-10-17 02:52 | XRay Report ---
PROCEDURE: XR CHEST 1V AP TECHNIQUE: Chest radiograph single view. HISTORY: Pneumonia COMPARISONS: October 15, 2018 . FINDINGS: Heart: Normal. Mediastinum/Vessels: Multiple sternal wires are present. Lungs/Pleural space: Scattered slight infiltrates identified in the right hilar region and in the le ft lower lung. No effusion or pneumothorax. Bony thorax: No acute osseous abnormality. Life support devices: Left central catheter ends in the SVC. IMPRESSION: Scattered slight infiltrates identified in the right hilar region and the left lower maciel g.. This document is electronically signed by Ramona Lehman DO., Oct 17 2018 02:50:06 AM ET
[2018-10-17] MEDS: DUONEB *Not for PRN Use IH SCH ×4 (04:02→21:09)
[2018-10-17] MEDS: FLAGYL 500 MG/100 ML 500 MG/100 ML BAG IV SCH ×3 (06:00→21:08)
[2018-10-17] MEDS ORDERED: SYNTHROID PO SCH ×2 (06:00→14:00)
[2018-10-17] MEDS ORDERED: LEVAQUIN 250MG/50ML 250 MG/50 ML BAG IV SCH (08:00)
[2018-10-17] MEDS: PULMICORT IH SCH ×2 (09:30→21:09)
[2018-10-17] MEDS ORDERED: EPIVIR FEEDTUBE SCH (10:00)
[2018-10-17] MEDS ORDERED: VIREAD PO SCH (10:00)
[2018-10-17] MEDS ORDERED: PREZISTA PO SCH (10:00)
[2018-10-17] MEDS: VITAMIN D3 FEEDTUBE SCH (10:00)
[2018-10-17] MEDS ORDERED: NORVIR PO SCH (10:00)
[2018-10-17] MEDS: ASPIRIN FEEDTUBE SCH (10:00)
[2018-10-17] MEDS: PROzac PO SCH (10:01)
[2018-10-17] MEDS: SODIUM CHLORIDE FLUSH SYRINGE 10 ML IV SCH ×2 (10:01→22:00)
[2018-10-17] MEDS: PEPCID IV SCH (10:01)
--- NOTE | 2018-10-17 11:50 | Progress Note ---
Assessment and Plan Cultures: Blood culture 10/14/2018 Staph Aureus, 1 out of 4 bottles Blood culture 10/16/2018:no growth to date Urine culture 10/14/2018 negative Assessment: 58-year-old male with history of HIV AIDS, cachexia, toxoplasmosis, CVA with residual weakness, status post tracheostomy reversal for previous respiratory failure, syphilitic encephalitis, traumatic brain injury, cocaine and tobacco abuse, prison resident at [place]; readmitted on 10/14/2018 due to AMS/lethargic and worsening shortness of breath for 34 hours. Patient is not able to provide a history, currently non verbal in mild respiratory distress. 1) Sepsis: Improved. still on pressors. Etiology most likely pneumonia +/- GPC bacteremia 2) Pneumonia: possible aspiration pneumonia vs HAP. CXR showed probably COPD and right sided pneumonia. 3) Staph Aureus Bacteremia:. Blood culture 10/14/2018 showed Staph aureaus, 1 out of 4 bottles.. Source unclear. TTE shows no vegetation. Repeat blood cultures show no growth to date. 4) Recent bilateral pneumonia, R>L causing acute respiratory failure, it was felt probably HCAP vs aspiration treated with cefepime and flagyl IV then heri nged to augmentin suspension 875mg PO BID for total 7 days. admission 08/27- 09/01/2018 5) HIV / AIDS: last viral load in March 2018 was undetectable and CD4 count was more than 700 on tenofovir, lamivudine, ritonavir boosted darunavir 6) Acute on Chronic respiratory failure 7) Acute on chronic encephalopathy 8) Cachexia 9) DAMON: antibiotic renally dosed. Hold off on ART therapy for now. Recommendations: - follow initial blood cultures for ID and EDY's - follow-up repeat blood culture - follow-up sputum culture - follow-up CD4/VL - follow-up stool cultures and C diff - continue cefepime, flagyl and vancomycin renally adjusted D2 - hold off ART for now as DAMON [facility] M: [phone] O:[phone] Subjective Date of service: 10/17/18 Interval history: Patient seen and examined. On venti mask. Does not follow commands. Daughter at bedside. no fevers. Objective - Exam Narrative Exam: General appearance: somnolent in mild resp distress on venti mask Eyes: anicteric sclerae, moist conjunctivae; no lid-lag; PERRLA HENT: Atraumatic; oropharynx limited Neck: Trachea midline; supple, no thyromegaly or lymphadenopathy Lungs: king rhonchi, On venti mask CV: tachycardia Abdomen: Soft, non-tender; +PEG +diarrhea Extremities: No peripheral edema or extremity lymphadenopathy Skin: diffuse skin desquamation Psych: no agitated. Neuro: somnolent non verbal position - Constitutional Vitals: Vital Signs Temp Pulse Resp BP Pulse Ox 97.1 F L 104 H 24 93/56 96 10/17/18 08:00 10/17/18 07:21 10/17/18 07:21 10/17/18 07:21 10/17/18 07:21 Temperature -Last 24 Hours Temperature 97.1 F Temperature 97.7 F Temperature 97.6 F Temperature 98.6 F Temperature 97.4 F - Labs CBC & Chem 7: 10/16/18 05:18 10/17/18 14:41 Labs: Abnormal lab results 10/16/18 10/16/18 10/16/18 Range/Units 12:40 12:40 15:19 POC ABG pO2 62 L (80-105) POC Glucose (70-105) Free T4 0.38 L (0.76-1.46) ng/dL Thyroxine (T4) 1.8 L (4.0-12.0) ug/dL 10/16/18 10/17/18 Range/Units 23:43 00:17 POC ABG pO2 63 L (80-105) POC Glucose 174 H (70-105) Free T4 (0.76-1.46) ng/dL Thyroxine (T4) (4.0-12.0) ug/dL
--- NOTE | 2018-10-17 13:40 | Progress Note ---
Assessment and Plan Assessment and plan: 58 year old man with history of HIV, toxoplasmosis, severe the reservoir deficits, syphilitic encephalopathy, history of polysubstance abuse including cocaine. He status post trach and tree traversal, has a g-tube still intact. The patient was brought from [facility] for respiratory distress and altered mental status Sepsis secondary to pneumonia, septic shock Infectious disease consultants, continue antibiotics, cont IV pressors, IV fluids Acute kidney injury due to vasomotor nephropathy and ATN IV fluids, nephrology Hypernatremia Hypotonic IV fluid, free water via g-tube Acute hypoxic respiratory failure Continue oxygen via venti mask and BiPAP as tolerated Hypothyroidism thyroid function tests show low T4 and low free T4, increase synthroid dose DVT prophylaxis with heparin subcutaneously History Interval history: Patient was seen and evaluated this morning. No nursing issues reported overnight. Hospitalist Physical - Physical exam Narrative exam: Not in cardiopulmonary distress. The patient is cachectic. Vital signs as documented. Head exam is unremarkable. No scleral icterus . Neck is without jugular venous distension, thyromegaly, or carotid bruits. Lungs are clear to auscultation. Cardiac exam reveals regular rate and Rhythm. Abdominal exam reveals normal bowel sounds, no masses, no organomegaly and no aortic enlargement. Extremities are nonedematous and both femoral and pedal pulses are normal. ADMISSIONS ASSISTANT: Alert . - Constitutional Vitals: Temp Pulse Resp BP Pulse Ox 97.8 F 101 H 25 H 107/61 91 10/17/18 12:00 10/17/18 13:00 10/17/18 13:00 10/17/18 13:00 10/17/18 13:00 General appearance: Present: severe distress, cachectic Results - Labs CBC & Chem 7: 10/16/18 05:18 10/17/18 14:41 Labs: Laboratory Last Values WBC 4.2 K/mm3 (4.5-11.0) L 10/16/18 05:18 RBC 3.93 M/mm3 (3.65-5.03) 10/16/18 05:18 Hgb 10.8 gm/dl (11.8-15.2) L 10/16/18 05:18 Hct 34.9 % (35.5-45.6) L 10/16/18 05:18 MCV 89 fl (84-94) 10/16/18 05:18 MCH 27 pg (28-32) L 10/16/18 05:18 MCHC 31 % (32-34) L 10/16/18 05:18 RDW 19.6 % (13.2-15.2) H 10/16/18 05:18 Plt Count 38 K/mm3 (140-440) L 10/16/18 05:18 Lymph % (Auto) Molder Labels 10/14/18 23:21 [place] % (Auto) Molder Labels 10/14/18 23:21 Eos % (Auto) Molder Labels 10/14/18 23:21 Baso % (Auto) Molder Labels 10/14/18 23:21 Lymph # Molder Labels 10/14/18 23:21 [place] # Molder Labels 10/14/18 23:21 Eos # Molder Labels 10/14/18 23:21 Baso # Molder Labels 10/14/18 23:21 Add Manual Diff Complete 10/16/18 05:18 Total Counted 100 10/16/18 05:18 Seg Neutrophils % Molder Labels 10/14/18 23:21 Seg Neuts % (Manual) 39.0 % (40.0-70.0) L 10/16/18 05:18 40.0 % 10/16/18 05:18 9.0 % (13.4-35.0) L 10/16/18 05:18 Reactive Lymphs % (Man) 0 % 10/16/18 05:18 12.0 % (0.0-7.3) H 10/16/18 05:18 0 % (0.0-4.3) 10/16/18 05:18 0 % (0.0-1.8) 10/16/18 05:18 0 % 10/16/18 05:18 0 % 10/16/18 05:18 0 % 10/16/18 05:18 0 % 10/16/18 05:18 Nucleated RBC % Not Reportable 10/16/18 05:18 Seg Neutrophils # Molder Labels 10/14/18 23:21 Seg Neutrophils # Man 1.6 K/mm3 (1.8-7.7) L 10/16/18 05:18 Band Neutrophils # 1.7 K/mm3 10/16/18 05:18 0.4 K/mm3 (1.2-5.4) L 10/16/18 05:18 Abs React Lymphs (Man) 0.0 K/mm3 10/16/18 05:18 0.5 K/mm3 (0.0-0.8) 10/16/18 05:18 0.0 K/mm3 (0.0-0.4) 10/16/18 05:18 0.0 K/mm3 (0.0-0.1) 10/16/18 05:18 0.0 K/mm3 10/16/18 05:18 0.0 K/mm3 10/16/18 05:18 0.0 K/mm3 10/16/18 05:18 Blast Cells # 0.0 K/mm3 10/16/18 05:18 WBC Morphology Not Reportable 10/16/18 05:18 Hypersegmented Neuts Not Reportable 10/16/18 05:18 Hyposegmented Neuts Not Reportable 10/16/18 05:18 Hypogranular Neuts Not Reportable 10/16/18 05:18 Not Reportable 10/16/18 05:18 Not Reportable 10/16/18 05:18 Not Reportable 10/16/18 05:18 Few 10/16/18 05:18 Not Reportable 10/16/18 05:18 Not Reportable 10/16/18 05:18 Consistent w auto 10/16/18 05:18 Not Reportable 10/16/18 05:18 Plt Clumps, EDTA Not Reportable 10/16/18 05:18 Not Reportable 10/16/18 05:18 Not Reportable 10/16/18 05:18 Not Reportable 10/16/18 05:18 Plt Morphology Comment Not Reportable 10/16/18 05:18 RBC Morphology Not Reportable 10/16/18 05:18 Dimorphic RBCs Not Reportable 10/16/18 05:18 Not Reportable 10/16/18 05:18 Not Reportable 10/16/18 05:18 Not Reportable 10/16/18 05:18 1+ 10/16/18 05:18 Not Reportable 10/16/18 05:18 Not Reportable 10/16/18 05:18 Not Reportable 10/16/18 05:18 Not Reportable 10/16/18 05:18 Not Reportable 10/16/18 05:18 Not Reportable 10/16/18 05:18 Not Reportable 10/16/18 05:18 Not Reportable 10/16/18 05:18 Not Reportable 10/16/18 05:18 Not Reportable 10/16/18 05:18 Not Reportable 10/16/18 05:18 Not Reportable 10/16/18 05:18 Not Reportable 10/16/18 05:18 Not Reportable 10/16/18 05:18 Not Reportable 10/16/18 05:18 Acanthocytes (Spur) Not Reportable 10/16/18 05:18 Rouleaux Not Reportable 10/16/18 05:18 Not Reportable 10/16/18 05:18 Not Reportable 10/16/18 05:18 Not Reportable 10/16/18 05:18 Not Reportable 10/16/18 05:18 Hem Pathologist Commnt No 10/16/18 05:18 POC ABG pH 7.363 (7.35-7.45) 10/17/18 00:17 POC ABG pCO2 33.1 (35-45) L 10/15/18 13:03 POC ABG pO2 63 (80-105) L 10/17/18 00:17 POC ABG HCO3 14.1 (22-26 mml/L) 10/17/18 00:17 POC ABG Total CO2 15 (23-27mmol/L) 10/17/18 00:17 POC ABG O2 Sat 92 10/17/18 00:17 POC ABG Base Excess -11 ((-2) - (+3)mmol/L) 10/17/18 00:17 50 % 10/17/18 00:17 Sodium 161 mmol/L (137-145) H* 10/16/18 05:18 Potassium 3.5 mmol/L (3.6-5.0) L 10/16/18 05:18 Chloride 130.6 mmol/L (98-107) H 10/16/18 05:18 Carbon Dioxide 18 mmol/L (22-30) L 10/16/18 05:18 16 mmol/L 10/16/18 05:18 BUN 105 mg/dL (9-20) H 10/16/18 05:18 3.4 mg/dL (0.8-1.5) H 10/16/18 05:18 Estimated GFR 23 ml/min 10/16/18 05:18 31 % 10/16/18 05:18 Glucose 100 mg/dL (75-100) 10/16/18 05:18 POC Glucose 174 (70-105) H 10/17/18 11:57 Lactic Acid 2.70 mmol/L (0.7-2.0) H* 10/15/18 15:13 Calcium 8.4 mg/dL (8.4-10.2) 10/16/18 05:18 0.40 mg/dL (0.1-1.2) 10/16/18 05:18 AST 522 units/L (5-40) H 10/16/18 05:18 ALT 167 units/L (7-56) H 10/16/18 05:18 61 units/L (35-129) 10/16/18 05:18 0.034 ng/mL (0.00-0.029) H 10/14/18 23:21 6.4 g/dL (6.3-8.2) 10/16/18 05:18 1.5 g/dL (3.9-5) L 10/16/18 05:18 0.3 % 10/16/18 05:18 Triglycerides 63 mg/dL (2-149) 10/14/18 23:21 Cholesterol 59 mg/dL (50-199) 10/14/18 23:21 13 mg/dL (50-130) L 10/14/18 23:21 28 mg/dL (40-59) L 10/14/18 23:21 2.10 % 10/14/18 23:21 TSH 2.560 mlU/mL (0.270-4.200) 10/16/18 12:40 Free T4 0.38 ng/dL (0.76-1.46) L 10/16/18 12:40 1.8 ug/dL (4.0-12.0) L 10/16/18 12:40 [place] (Yellow) 10/14/18 01:27 Cloudy (Clear) 10/14/18 01:27 5.0 (5.0-7.0) 10/14/18 01:27 Ur Specific [place] 1.020 (1.003-1.030) 10/14/18 01:27 100 mg/dl mg/dL (Negative) 10/14/18 01:27 Neg mg/dL (Negative) 05/04/19 01:27 Neg mg/dL (Negative) 10/14/18 01:27 Lg (Negative) 10/14/18 01:27 Neg (Negative) 10/14/18 01:27 Neg (Negative) 10/14/18 01:27 2.0 mg/dL (<2.0) 10/14/18 01:27 Ur Leukocyte Esterase Neg (Negative) 10/14/18 01:27 6.0 /HPF (0.0-6.0) 10/14/18 01:27 95.0 /HPF (0.0-6.0) 10/14/18 01:27 U Epithel Cells (Auto) < 1.0 /HPF (0-13.0) 10/14/18 01:27 Amorphous Crystals 3+ 10/14/18 01:27 Hyaline Casts 4 /LPF 10/14/18 01:27 Granular Casts 2 /LPF 10/14/18 01:27 1+ /HPF 10/14/18 01:27 Random Vancomycin 7.6 ug/mL (0-40.0) 10/17/18 05:20 Active Medications - Current Medications Current Medications: Generic Name Dose Route Start Last Admin Trade Name Freq PRN Reason Stop Dose Admin Acetaminophen 650 mg 10/15/18 03:28 Tylenol PO Q4H PRN Pain MILD(1-3)/Fever >100.5/DELGADO Albuterol 2.5 mg 10/16/18 10:30 Proventil IH Q4HRT PRN Shortness Of Breath Albuterol/Ipratropium 1 ampul 10/15/18 14:00 10/17/18 09:24 Duoneb *Not For Prn Use* IH 1 ampul Q6HRT BLOSSOM Administration Lipase/Protease/Amylase 1 each 10/16/18 16:[address] 10,500 Unit FEEDTUBE PRN PRN For Clogged Feeding Tube Aspirin 325 mg 10/17/18 10:00 10/17/18 10:00 Aspirin FEEDTUBE 325 mg DAILY BLOSSOM Administration Atorvastatin Calcium 20 mg 10/16/18 22:00 10/16/18 21:31 Lipitor FEEDTUBE 20 mg HS BLOSSOM Administration Bisacodyl 10 mg 10/16/18 10:30 Dulcolax [place] DAILY PRN Constipation Budesonide 0.5 mg 10/15/18 20:00 10/17/18 09:30 Pulmicort IH 0.5 mg Q12HRT BLOSSOM Administration Cholecalciferol 2,000 unit 10/17/18 10:00 10/17/18 10:00 Vitamin D3 FEEDTUBE 2,000 unit QAM BLOSSOM Administration Docusate Sodium 100 mg 10/16/18 10:30 Colace FEEDTUBE Q12H PRN Constipation Famotidine 20 mg 10/15/18 10:00 10/17/18 10:01 Pepcid IV 20 mg QAM BLOSSOM Administration Fluoxetine HCl 40 mg 10/17/18 10:00 10/17/18 10:01 Prozac PO 40 mg QDAY BLOSSOM Administration Heparin Sodium (Porcine) 5,000 unit 10/17/18 14:00 Heparin SUB-Q Q8HR [facility] Dextrose 1,000 mls @ 125 mls/hr 10/15/18 12:00 10/16/18 21:25 D5w IV 125 mls/hr DIRECT BLOSSOM Administration Norepinephrine 4 mg in 250 mls @ 7.5 mls/hr 10/15/18 13:00 10/17/18 10:08 Levophed Drip 4 Mg/Ns 250 Ml IV 4 mcg/min TITR BLOSSOM 15 mls/hr Titration Protocol 2 MCG/MIN Cefepime HCl 2 gm in 100 mls @ 200 mls/hr 10/15/18 16:00 10/16/18 15:50 Maxipime/Ns 2 Gm/100 Ml IV 200 mls/hr Q24H [facility] Administration Protocol Metronidazole 500 mg in 100 mls @ 100 mls/hr 10/15/18 15:00 10/16/18 21:32 Flagyl 500 Mg/100 Ml IV 100 mls/hr Q8HR BL[facility] Administration Protocol Levothyroxine Sodium 75 mcg 10/17/18 13:30 Synthroid PO DAILY@0600 [facility] Methylprednisolone Sodium Succinate 40 mg 10/16/18 14:00 10/16/18 21:31 Solu-Medrol IV 40 mg Q8HR [facility] Administration Morphine Sulfate 2 mg 10/15/18 03:28 Morphine IV Q4H PRN Pain, Moderate (4-6) Ondansetron HCl 4 mg 10/15/18 03:28 Zofran IV Q8H PRN Nausea And Vomiting Polyethylene Glycol 17 gm 10/16/18 10:30 Miralax 3350 FEEDTUBE DAILY PRN Constipation Quetiapine Fumarate 100 mg 10/16/18 11:00 10/17/18 11:57 Seroquel FEEDTUBE Not Given Q8H [facility] Scopolamine 1 each 10/16/18 11:00 10/16/18 13:19 Transderm-Scop TD 1 each Q72H [facility] Administration Senna 17.2 mg 10/16/18 22:00 10/16/18 21:31 Senokot FEEDTUBE 17.2 mg HS BLOSSOM Administration Simple Syrup 15 ml 10/16/18 16:25 Simple Syrup FEEDTUBE PRN PRN Hypoglycemia Simple Syrup 30 ml 10/16/18 16:25 Simple Syrup FEEDTUBE PRN PRN Hypoglycemia Sodium Bicarbonate 325 mg 10/16/18 16:25 Sodium Bicarbonate FEEDTUBE PRN PRN For Clogged Feeding Tube Sodium Chloride 10 ml 10/15/18 10:00 10/17/18 10:01 Sodium Chloride Flush Syringe 10 Ml IV 10 ml BID BLOSSOM Administration Sodium Chloride 10 ml 10/15/18 03:28 Sodium Chloride Flush Syringe 10 Ml IV PRN PRN LINE FLUSH Nutrition/Malnutrition Assess - Dietary Evaluation Nutrition/Malnutrition Findings: Nutrition Notes Start: 10/16/18 16:06 Freq: Status: Active Protocol: Document 10/16/18 16:06 (Rec: 10/16/18 16:28 [id number]) Nutrition Notes Need for Assessment generated from: MD Order Initial or Follow up Assessment Current Diagnosis COPD,Sepsis,Respiratory Failure,Stroke Other Pertinent Diagnosis HIV/AIDS, Pneu, PEG Current Diet NPO Labs/Tests Na 161 Pertinent Medications Solu-Medrol Height 5 ft 3 in Weight 52 kg [place] Body Weight (kg) 56.36 BMI 20.2 Subjective/Other Information Consulted for TF recommendation. Water flush of 250 mls q 6 hrs ordered by MD to address hypernatremia. Burn Absent Trauma Absent #1 Nutrition Diagnosis Inadequate oral intake Etiology CVA As Evidenced by Signs and Symptoms pt requiring enteral nutrition to meet nutritional needs Is patient on ventilator? No Is Patient Ambulatory and/or Out of Bed No REE-([facility]eva-confined to bed) [phone] Calculation Used for Recommendations [facility] Additional Notes Protein Needs: 62-104g (1.2-2g /kg) Fluid Needs: 1 ml/kcal Nutrition Intervention Nutrition Support: Vital 1.2 at 50 ml/hr. Water flush of 250 mls q 6 hrs until hypernatremia resolves. Water flush of 100 mls q 4 hrs once hyperntreami resolves. Kcal 1,440 Protein (gm) 90 Fluid (mL) 973 Goal #1 TF tolerance Goal #2 Meet at least 80% of calorie and protein needs via TF Anticipated Discharge Needs: TF Follow-Up By: 10/18/18 Additional Comments Follow for new TF, Na lab
[2018-10-17] MEDS ORDERED: HEPARIN SUB-Q SCH (14:00)
[2018-10-17] MEDS: SOLU-Medrol IV SCH ×2 (14:20→22:00)
[2018-10-17] MEDS ORDERED: SYNTHROID PO ONE (14:30)
[2018-10-17] MEDS ORDERED: NACL 0.9% 500 ML 500 ML ONE (14:39)
--- NOTE | 2018-10-17 14:40 | Progress Note ---
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 Acute renal failure (likely due to dehydration) H/O cocaine abuse Anemia (multi-factorial) - measure CVP's +/- 2D ECHO re: hypotension - if running low (< 4 in this setting) i will change to 0.45 NS re: hypotension, but increase free water flushes via PEG for hypernatremia - continue BIPAP scheduled qhs - continue aspiration precautions - continue bronchodilators with pulmonary hygiene per RT - get ABG now and address - continue to wean levophed for target MAP > 65 mmHg - continue free water flushes for hypernatremia (250mls q6h) - continue isotonic IV fluids also - reduced solumedrol to 40 mg IV q8h - stopped Lovenox re: thrombocytopenia - placed nutrition consult and resume enteral nutrition as tolerated - continue GI prophylaxis - nephrology consultation per attending - continue Anti-infectives per ID rec's - Monitor renal indices closely - Avoid nephrotoxic agents, adjust all medications for CrCL - Strict intake and output monitoring - Accuchecks with glycemic control. Target glucose of 140-180 mg/dL - Maintenance of sleep -wake cycle - Mobility as tolerated by hemodynamics - Influenza and pneumonia vaccination per protocol ..discussed in ICU-IDT rounds PROGNOSIS: GUARDED CONDITION: CRITICAL CODE STATUS: FULL CODE The high probability of a clinically significant, sudden or life-threatening deterioration of the [respiratory] system(s) required my full and direct attention, intervention and personal management. The aggregate critical care time was [35] minutes without overlap. Time includes spent on; [x] Data Review and interpretation [x] Patient assessment and monitoring of vital signs [x] Documentation [x] Medication orders and management Subjective Date of service: 10/17/18 Principal diagnosis: Ac Hypoxemic Resp Failure; Pneumonia (HAP); Acute encephalopathy ; HIV/AIDS Interval history: Patient is seen today for: Acute Hypoxemic Respiratory Failure; Right midlung pneumonia (HAP); H/O Tracheostomy; COPD; Acute encephalopathy ; HIV/AIDS (viral load and CD4 unknown); H/o toxoplasmosis; H/o syphilitic encephalopathy Seen and examined at bedside; 24hour events reviewed; nursing and respiratory care staff consulted; no adverse overnight events reported to me; remains on supplemental oxygen; remains on levophed and up to 6 mics/min; daughter visiting and is discussing end-of-life issues with him; No N/V/F/C and a little more coherent overall; tolerating qhs BIPAP Objective Vital Signs - 12hr 10/17/18 10/17/18 10/17/18 02:41 02:51 03:00 Temperature Pulse Rate 112 H 111 H 110 H Pulse Rate [ From Monitor] Respiratory 32 H 32 H 32 H Rate Blood Pressure 102/60 106/60 108/62 O2 Sat by Pulse 92 91 90 Oximetry 10/17/18 10/17/18 10/17/18 03:11 03:21 03:30 Temperature Pulse Rate 109 H 113 H 116 H Pulse Rate [ From Monitor] Respiratory 31 H 31 H 30 H Rate Blood Pressure 108/62 96/63 106/60 O2 Sat by Pulse 90 87 92 Oximetry 10/17/18 10/17/18 10/17/18 03:41 03:51 04:00 Temperature 97.7 F Pulse Rate 118 H 119 H 118 H Pulse Rate [ From Monitor] Respiratory 30 H 29 H 29 H Rate Blood Pressure 106/60 108/58 99/62 O2 Sat by Pulse 93 92 92 Oximetry 10/17/18 10/17/18 10/17/18 04:11 04:21 04:30 Temperature Pulse Rate 118 H 117 H 115 H Pulse Rate [ From Monitor] Respiratory 30 H 27 H 27 H Rate Blood Pressure 99/62 108/58 103/59 O2 Sat by Pulse 92 92 92 Oximetry 10/17/18 10/17/18 10/17/18 04:41 04:51 05:00 Temperature Pulse Rate 116 H 115 H 112 H Pulse Rate [ From Monitor] Respiratory 34 H 34 H 28 H Rate Blood Pressure 103/59 103/59 97/59 O2 Sat by Pulse Oximetry 10/17/18 10/17/18 10/17/18 05:11 05:21 05:30 Temperature Pulse Rate 111 H 110 H 109 H Pulse Rate [ From Monitor] Respiratory 27 H 26 H 25 H Rate Blood Pressure 97/59 86/53 103/57 O2 Sat by Pulse 92 95 Oximetry 10/17/18 10/17/18 10/17/18 05:41 05:51 06:00 Temperature Pulse Rate 109 H 107 H 107 H Pulse Rate [ 119 H From Monitor] Respiratory 22 23 25 H Rate Blood Pressure 103/57 103/57 96/57 O2 Sat by Pulse 96 96 95 Oximetry 10/17/18 10/17/18 10/17/18 06:10 06:20 06:30 Temperature Pulse Rate 108 H 106 H 105 H Pulse Rate [ From Monitor] Respiratory 25 H 25 H 25 H Rate Blood Pressure 96/57 99/56 101/61 O2 Sat by Pulse 95 96 96 Oximetry 10/17/18 10/17/18 10/17/18 06:41 06:51 07:00 Temperature Pulse Rate 105 H 105 H 104 H Pulse Rate [ From Monitor] Respiratory 23 25 H 23 Rate Blood Pressure 101/61 101/61 98/61 O2 Sat by Pulse 95 94 95 Oximetry 10/17/18 10/17/18 10/17/18 07:11 07:21 07:30 Temperature Pulse Rate 104 H 104 H 104 H Pulse Rate [ From Monitor] Respiratory 25 H 24 25 H Rate Blood Pressure 98/61 93/56 94/56 O2 Sat by Pulse 95 96 96 Oximetry 10/17/18 10/17/18 10/17/18 07:41 07:50 08:00 Temperature 97.1 F L Pulse Rate 104 H 103 H 103 H Pulse Rate [ From Monitor] Respiratory 24 22 24 Rate Blood Pressure 94/56 93/56 101/61 O2 Sat by Pulse 96 96 96 Oximetry 10/17/18 10/17/18 10/17/18 08:11 08:21 08:30 Temperature Pulse Rate 103 H 103 H 103 H Pulse Rate [ From Monitor] Respiratory 23 25 H 21 Rate Blood Pressure 101/61 98/60 98/60 O2 Sat by Pulse 96 96 95 Oximetry 10/17/18 10/17/18 10/17/18 08:41 08:51 09:00 Temperature Pulse Rate 104 H 104 H 103 H Pulse Rate [ From Monitor] Respiratory 23 22 23 Rate Blood Pressure 102/63 101/61 O2 Sat by Pulse 96 96 95 Oximetry 10/17/18 10/17/18 10/17/18 09:11 09:21 09:30 Temperature Pulse Rate 104 H 102 H 103 H Pulse Rate [ From Monitor] Respiratory 24 23 20 Rate Blood Pressure 101/61 101/61 109/55 O2 Sat by Pulse 95 82 L 100 Oximetry 10/17/18 10/17/18 10/17/18 09:41 09:51 10:00 Temperature Pulse Rate 106 H 108 H 109 H Pulse Rate [ 108 H From Monitor] Respiratory 26 H 24 23 Rate Blood Pressure 109/55 99/64 97/55 O2 Sat by Pulse 80 L 82 L 93 Oximetry 10/17/18 10/17/18 10/17/18 10:11 10:21 10:30 Temperature Pulse Rate 107 H 108 H 108 H Pulse Rate [ From Monitor] Respiratory 25 H 24 21 Rate Blood Pressure 97/55 95/55 89/54 O2 Sat by Pulse 94 94 94 Oximetry 10/17/18 10/17/18 10/17/18 10:41 10:51 11:00 Temperature Pulse Rate 109 H 108 H 108 H Pulse Rate [ From Monitor] Respiratory 27 H 22 26 H Rate Blood Pressure 89/54 101/56 87/64 O2 Sat by Pulse 93 92 91 Oximetry 10/17/18 10/17/18 10/17/18 11:11 11:21 11:30 Temperature Pulse Rate 107 H 108 H 106 H Pulse Rate [ From Monitor] Respiratory 29 H 29 H 26 H Rate Blood Pressure 87/64 88/58 93/58 O2 Sat by Pulse 92 91 95 Oximetry 10/17/18 10/17/18 10/17/18 11:41 11:51 12:00 Temperature 97.8 F Pulse Rate 108 H 106 H 104 H Pulse Rate [ From Monitor] Respiratory 27 H 26 H 27 H Rate Blood Pressure 93/58 84/49 95/61 O2 Sat by Pulse 93 94 93 Oximetry 10/17/18 10/17/18 10/17/18 12:11 12:21 12:30 Temperature Pulse Rate 104 H 104 H 103 H Pulse Rate [ From Monitor] Respiratory 26 H 27 H 24 Rate Blood Pressure 95/61 87/56 77/56 O2 Sat by Pulse 95 94 92 Oximetry 10/17/18 10/17/18 10/17/18 12:41 12:51 13:00 Temperature Pulse Rate 102 H 101 H 101 H Pulse Rate [ From Monitor] Respiratory 27 H 26 H 25 H Rate Blood Pressure 77/56 98/59 107/61 O2 Sat by Pulse 94 94 91 Oximetry 10/17/18 10/17/18 10/17/18 13:11 13:21 13:30 Temperature Pulse Rate 100 H 98 H 100 H Pulse Rate [ From Monitor] Respiratory 27 H 24 25 H Rate Blood Pressure 107/61 104/65 112/63 O2 Sat by Pulse 95 94 94 Oximetry 10/17/18 10/17/18 10/17/18 13:41 13:51 14:00 Temperature Pulse Rate 99 H 98 H 99 H Pulse Rate [ 101 H From Monitor] Respiratory 25 H 25 H 20 Rate Blood Pressure 112/63 109/70 112/69 O2 Sat by Pulse 95 95 95 Oximetry Constitutional: appears uncomfortable, other (middle aged and chronically ill looking AAM with increased resp effort at rest) Eyes: non-icteric ENT: oropharynx moist, other (mallampati 2) Neck: supple, no lymphadenopathy, no JVD, other (no thyromegaly) Effort: mildly labored Ascultation: Bilateral: diminished breath sounds, rhonchi Percussion: Bilateral: not dull Cardiovascular: regular rate and rhythm Gastrointestinal: normoactive bowel sounds, soft, non-tender, non-distended Integumentary: other (poor turgor) Extremities: no cyanosis, no edema, pulses normal, no ischemia or petechiae Neurologic: pupils equal and round, other (+ cognitive dysfunction) Psychiatric: other (flat ) CBC and BMP: 10/18/18 00:50 10/17/18 14:41 ABG, PT/INR, D-dimer: ABG POC ABG pH 7.363 (7.35-7.45) 10/17/18 00:17 POC ABG pO2 63 (80-105) L 10/17/18 00:17 POC ABG HCO3 14.1 (22-26 mml/L) 10/17/18 00:17 POC ABG Total CO2 15 (23-27mmol/L) 10/17/18 00:17 POC ABG O2 Sat 92 10/17/18 00:17 Abnormal lab findings: Abnormal Labs 10/14/18 10/14/18 10/14/18 23:21 23:21 23:21 WBC Hgb 10.2 L Hct 32.0 L MCH MCHC RDW 18.9 H Plt Count 100 L Seg Neuts % (Manual) 34.0 L Lymphocytes % (Manual) Monocytes % (Manual) Seg Neutrophils # Man 1.7 L Lymphocytes # (Manual) 0.8 L POC ABG pH POC ABG pCO2 POC ABG pO2 Sodium 156 H Potassium Chloride 117.8 H Carbon Dioxide 19 L BUN 124 H Creatinine 4.8 H Glucose POC Glucose Lactic Acid 4.90 H* Calcium AST 72 H ALT Troponin T 0.034 H Albumin 1.9 L LDL Cholesterol Direct 13 L HDL Cholesterol 28 L Free T4 Thyroxine (T4) 10/15/18 10/15/18 10/15/18 00:50 03:46 04:29 WBC Hgb Hct MCH MCHC RDW Plt Count Seg Neuts % (Manual) Lymphocytes % (Manual) Monocytes % (Manual) Seg Neutrophils # Man Lymphocytes # (Manual) POC ABG pH POC ABG pCO2 POC ABG pO2 Sodium Potassium Chloride Carbon Dioxide BUN Creatinine Glucose POC Glucose Lactic Acid 3.30 H* 2.20 H* 2.20 H* Calcium AST ALT Troponin T Albumin LDL Cholesterol Direct HDL Cholesterol Free T4 Thyroxine (T4) 10/15/18 10/15/18 10/15/18 05:37 06:18 09:16 WBC Hgb Hct MCH MCHC RDW Plt Count Seg Neuts % (Manual) Lymphocytes % (Manual) Monocytes % (Manual) Seg Neutrophils # Man Lymphocytes # (Manual) POC ABG pH POC ABG pCO2 POC ABG pO2 Sodium Potassium Chloride Carbon Dioxide BUN Creatinine Glucose POC Glucose Lactic Acid 2.30 H* 2.50 H* 3.10 H* Calcium AST ALT Troponin T Albumin LDL Cholesterol Direct HDL Cholesterol Free T4 Thyroxine (T4) 10/15/18 10/15/18 10/15/18 09:16 13:03 15:13 WBC Hgb Hct MCH MCHC RDW Plt Count Seg Neuts % (Manual) Lymphocytes % (Manual) Monocytes % (Manual) Seg Neutrophils # Man Lymphocytes # (Manual) POC ABG pH 7.308 L POC ABG pCO2 33.1 L POC ABG pO2 70 L Sodium 158 H Potassium Chloride 121.1 H Carbon Dioxide 19 L BUN 120 H Creatinine 4.3 H Glucose 119 H POC Glucose Lactic Acid 2.70 H* Calcium 8.0 L AST ALT Troponin T Albumin LDL Cholesterol Direct HDL Cholesterol Free T4 Thyroxine (T4) 10/16/18 10/16/18 10/16/18 05:18 05:18 12:40 WBC 4.2 L Hgb 10.8 L Hct 34.9 L MCH 27 L MCHC 31 L RDW 19.6 H Plt Count 38 L Seg Neuts % (Manual) 39.0 L Lymphocytes % (Manual) 9.0 L Monocytes % (Manual) 12.0 H Seg Neutrophils # Man 1.6 L Lymphocytes # (Manual) 0.4 L POC ABG pH POC ABG pCO2 POC ABG pO2 Sodium 161 H* Potassium 3.5 L Chloride 130.6 H Carbon Dioxide 18 L BUN 105 H Creatinine 3.4 H Glucose POC Glucose Lactic Acid Calcium AST 522 H ALT 167 H Troponin T Albumin 1.5 L LDL Cholesterol Direct HDL Cholesterol Free T4 0.38 L Thyroxine (T4) 10/16/18 10/16/18 10/16/18 12:40 15:19 23:43 WBC Hgb Hct MCH MCHC RDW Plt Count Seg Neuts % (Manual) Lymphocytes % (Manual) Monocytes % (Manual) Seg Neutrophils # Man Lymphocytes # (Manual) POC ABG pH POC ABG pCO2 POC ABG pO2 62 L Sodium Potassium Chloride Carbon Dioxide BUN Creatinine Glucose POC Glucose 174 H Lactic Acid Calcium AST ALT Troponin T Albumin LDL Cholesterol Direct HDL Cholesterol Free T4 Thyroxine (T4) 1.8 L 10/17/18 10/17/18 00:17 11:57 WBC Hgb Hct MCH MCHC RDW Plt Count Seg Neuts % (Manual) Lymphocytes % (Manual) Monocytes % (Manual) Seg Neutrophils # Man Lymphocytes # (Manual) POC ABG pH POC ABG pCO2 POC ABG pO2 63 L Sodium Potassium Chloride Carbon Dioxide BUN Creatinine Glucose POC Glucose 174 H Lactic Acid Calcium AST ALT Troponin T Albumin LDL Cholesterol Direct HDL Cholesterol Free T4 Thyroxine (T4) Chest x-ray: image reviewed ([facility] line; bilateral pulmonary infiltrates) Allied health notes reviewed: nursing
[2018-10-17] MEDS ORDERED: VANCOMYCIN/NS 1 GM/250 ML 1 GM/250 ML BAG IV ONE (15:00)
[2018-10-17] MEDS: MAXIPIME/NS 2 GM/100 ML 2 GM/100 ML BAG IV SCH (15:51)
[2018-10-17] MEDS: NACL 0.45% 1,000 ML IV SCH (16:33)
[2018-10-17] MEDS ORDERED: POTASSIUM CHLORIDE FEEDTUBE ONE (17:00)
--- NOTE | 2018-10-17 18:37 | Consultation ---
History of Present Illness - Reason for Consult acute renal failure, hypernatremia - History of Present Illness 58 y/o AAM with h/o HIV/AIDS, on chronic HAART therapy, h/o toxiplasmosis, CVA with significant motor deficits, cachexia, h/o reversal of previous tracheostomy that was initally placed secondary to chronic respiratory failure, with h/o recurrent bouts of HCAP, presented to the ED from the [facility] secondary to worsening respiratory distress,lethargy and altered mental status. Nephrology consulted at this time secondary to DAMON and hypernatremia. Patient is being seen by pulmonology and infectious diseases at this time, and he is also being treated for recurrent PNA. Past History Past Medical History: COPD, HIV/AIDS, renal failure, other (HIV/AIDS) Past Surgical History: Other (h/o tracheostomy with reversal) Social history: other (cocaine abuse) Family history: no significant family history Medications and Allergies Allergies Allergy/AdvReac Type Severity Reaction Status Date / Time No Known Allergies Allergy Verified 08/27/18 10:38 Home Medications Medication Instructions Recorded Confirmed Last Taken Type Acetylcysteine 20% Oral [Mucomyst 3 ml INTRATRACH Q6H 03/28/18 03/28/18 Unknown History Oral] Aspirin [Aspirin TAB] 325 mg FEEDTUBE DAILY 03/28/18 03/28/18 Unknown History Atorvastatin Calcium [Lipitor] 20 mg FEEDTUBE HS 03/28/18 03/28/18 Unknown History Bisacodyl [Bisac-Evac] 10 mg RC DAILY PRN 03/28/18 03/28/18 Unknown History Cholecalciferol (Vitamin D3) 2,000 unit FEEDTUBE QAM 03/28/18 03/28/18 Unknown History [Vitamin D3] Docusate Sodium [Move It Along] 100 mg FEEDTUBE Q12H PRN 03/28/18 03/28/18 Unknown History Doxazosin Mesylate [Cardura] 1 mg FEEDTUBE HS 03/28/18 03/28/18 Unknown History Ergocalciferol [Vitamin D2] 1 cap FEEDTUBE QWEEK 03/28/18 03/28/18 Unknown History Gabapentin [Neurontin] 300 mg FEEDTUBE HS 03/28/18 03/28/18 Unknown History Haloperidol Decanoate [Haldol 50 mg IM Q4W 03/28/18 03/28/18 Unknown History Decanoate] Haloperidol Lactate [Haldol] 0.4 ml IM Q8H PRN 03/28/18 03/28/18 Unknown History Ipratropium/Albuterol Sulfate 1 ampul IH Q4HR 03/28/18 03/28/18 Unknown History [DUONEB *Not for PRN Use*] Polyethylene Glycol 3350 17 gm FEEDTUBE DAILY PRN 03/28/18 03/28/18 Unknown History [Smoothlax] Quetiapine Fumarate [Seroquel] 100 mg FEEDTUBE Q8H 03/28/18 03/28/18 Unknown History Scopolamine [Transderm-Scop] 1 each TD Q72H 03/28/18 03/28/18 Unknown History Sennosides [Senna Laxative] 17.2 mg FEEDTUBE HS 03/28/18 03/28/18 Unknown History lamiVUDine [Lamivudine] 30 ml FEEDTUBE QAM 03/28/18 03/28/18 Unknown History traMADol [Ultram 50 MG tab] 50 mg FEEDTUBE TID #10 tablet 03/31/18 Unknown Rx Bacitracin Zinc Oint [Antibiotic 1 applicatio TP BID #1 tube 08/22/18 Unknown Rx Oint] ALBUTEROL NEB's [Proventil 0.083% 2.5 mg IH Q4HRT PRN nebu 09/01/18 Unknown Rx NEBS] Amoxicillin/K Clav Tab [Augmentin 875 each PO Q12HR #14 tablet 09/01/18 Unknown Rx 875MG TAB] Darunavir [Prezista] 800 mg PO QDAY tablet 09/01/18 Unknown Rx FLUoxetine [Prozac] 40 mg PO QDAY oral.liqd 09/01/18 Unknown Rx Famotidine [Pepcid] 20 mg PO BID tablet 09/01/18 Unknown Rx Levothyroxine [Synthroid] 50 mcg PO DAILY@0600 tablet 09/01/18 Unknown Rx Metoprolol [Lopressor TAB] 12.5 mg PO BID tablet 09/01/18 Unknown Rx Ritonavir [Norvir] 100 mg PO DAILY tab 09/01/18 Unknown Rx Tenofovir [Viread] 300 mg PO QDAY tablet 09/01/18 Unknown Rx Active Meds: Active Medications Acetaminophen (Tylenol) 650 mg PO Q4H PRN PRN Reason: Pain MILD(1-3)/Fever >100.5/DELGADO Albuterol (Proventil) 2.5 mg IH Q4HRT PRN PRN Reason: Shortness Of Breath Albuterol/Ipratropium (Duoneb *Not For Prn Use*) 1 ampul IH Q6HRT [facility] Last Admin: 10/17/18 14:55 Dose: 1 ampul Documented by: Lipase/Protease/Amylase (Tomás Lema 10,500 Unit) 1 each FEEDTUBE PRN PRN PRN Reason: For Clogged Feeding Tube Aspirin (Aspirin) 325 mg FEEDTUBE DAILY [facility] Last Admin: 10/17/18 10:00 Dose: 325 mg Documented by: Atorvastatin Calcium (Lipitor) 20 mg FEEDTUBE HS [facility] Last Admin: 10/16/18 21:31 Dose: 20 mg Documented by: Bisacodyl (Dulcolax) 10 mg NC DAILY PRN PRN Reason: Constipation Budesonide (Pulmicort) 0.5 mg IH Q12HRT [facility] Last Admin: 10/17/18 09:30 Dose: 0.5 mg Documented by: Cholecalciferol (Vitamin D3) 2,[facility] Admin: 10/17/18 10:00 Dose: 2,000 unit Documented by: Docusate Sodium (Colace) 100 mg FEEDTUBE Q12H PRN PRN Reason: Constipation Famotidine (Pepcid) 20 [facility] Last Admin: 10/17/18 10:01 Dose: 20 mg Documented by: Fluoxetine HCl (Prozac) 40 mg PO QDAY [facility] Last Admin: 10/17/18 10:01 Dose: 40 mg Documented by: Norepinephrine (Levophed Drip 4 Mg/Ns 250 Ml) 4 mg in 250 mls @ 7.5 mls/hr IV TITR [facility]; Protocol Last Admin: 10/17/18 15:45 Dose: 4 mcg/min, 15 mls/hr Documented by: Cefepime HCl (Maxipime/Ns 2 Gm/100 Ml) 2 gm in 100 mls @ 200 mls/hr IV Q24H [facility]; Protocol Last Admin: 10/17/18 15:51 Dose: 200 mls/hr Documented by: Metronidazole (Flagyl 500 Mg/100 Ml) 500 mg in 100 mls @ 100 mls/hr IV Q8HR [facility]; Protocol Last Admin: 10/17/18 14:28 Dose: 100 mls/hr Documented by: Sodium Chloride (Nacl 0.45%) 1,000 mls @ 75 mls/hr IV DIRECT BLOSSOM Stop: 10/21/18 05:19 Last Admin: 10/17/18 16:33 Dose: 75 mls/hr Documented by: Levothyroxine Sodium (Synthroid) 75 mcg PO DAILY@0600 [facility] Methylprednisolone Sodium Succinate (Solu-Medrol) 40 mg IV Q8HR [facility] Last Admin: 10/17/18 14:20 Dose: 40 mg Documented by: Morphine Sulfate (Morphine) 2 mg IV Q4H PRN PRN Reason: Pain, Moderate (4-6) Ondansetron HCl (Zofran) 4 mg IV Q8H PRN PRN Reason: Nausea And Vomiting Polyethylene Glycol (Miralax 3350) 17 gm FEEDTUBE DAILY PRN PRN Reason: Constipation Quetiapine Fumarate (Seroquel) 100 mg FEEDTUBE Q8H [facility] Last Admin: 10/17/18 11:57 Dose: Not Given Documented by: Scopolamine (Transderm-Scop) 1 each TD Q72H [facility] Last Admin: 10/16/18 13:19 Dose: 1 each Documented by: Senna (Senokot) 17.2 mg FEEDTUBE HS [facility] Last Admin: 10/16/18 21:31 Dose: 17.2 mg Documented by: Simple Syrup (Simple Syrup) 15 ml FEEDTUBE PRN PRN PRN Reason: Hypoglycemia Simple Syrup (Simple Syrup) 30 ml FEEDTUBE PRN PRN PRN Reason: Hypoglycemia Sodium Bicarbonate (Sodium Bicarbonate) 325 mg FEEDTUBE PRN PRN PRN Reason: For Clogged Feeding Tube Sodium Chloride (Sodium Chloride Flush Syringe 10 Ml) 10 ml IV BID [facility] Last Admin: 10/17/18 10:01 Dose: 10 ml Documented by: Sodium Chloride (Sodium Chloride Flush Syringe 10 Ml) 10 ml IV PRN PRN PRN Reason: LINE FLUSH Review of Systems ROS unobtainable: due to mental status Exam - Vital Signs Vital signs: Vital Signs Pulse Ox 89 10/14/18 22:59 - General Appearance General appearance: cachectic, chronically ill, frail EENT: ATNC, PERRL Neck: Present: neck supple Respiratory: Ronchi, Wheezes Heart: regular, S1S2 Gastrointestinal: Present: normal, normoactive bowel sounds Integumentary: warm and dry Neurologic: other (lethargic) Musculoskeletal: Present: other (-edema ) Psychiatric: other (lethargic, non-verbal ) Results - Lab Results 10/16/18 05:18 10/17/18 14:41 Most recent lab results Calcium 8.0 mg/dL (8.4-10.2) L 10/17/18 14:41 Magnesium 1.60 mg/dL (1.7-2.3) L 10/17/18 14:41 Assessment and Plan - Patient Problems (1) Acute renal failure Current Visit: Yes Status: Acute Plan to address problem: Likely pre-renal in etiology vs ATN. Will order urine electrolytes along with renal US for further evaluation. In the setting of proteinuria and microscopic hematuria, will order serologic studies to include complement levels as well as ANCA studies to rule out a possible GN. Will also order a UPC to quantify proteinuria. Avoid nephrotoxins, maintain MAP >65mmHg. Will monitor renal function closely. (2) Hypernatremia Current Visit: Yes Status: Acute Plan to address problem: Continue to current management of free water replacement with FWF (300cc q4hrs) via G-tube along with IV repletion. Need to monitor serum sodium levels closely. (3) Acute and chronic respiratory failure with hypoxia Current Visit: Yes Status: Acute Plan to address problem: Further management per pulmonology. (4) HCAP (healthcare-associated pneumonia) Current Visit: Yes Status: Acute Plan to address problem: Please ensure that antibiotics are dosed for his decreased renal function. (5) HIV (human immunodeficiency virus infection) Current Visit: Yes Status: Chronic Qualifiers: Plan to address problem: Management per recommendations from infectious diseases (6) Altered mental status Current Visit: No Status: Acute Qualifiers: Altered mental status type: somnolence Qualified Code(s): R40.0 - Somnolence Plan to address problem: Unclear if this is close to his baseline. Will continue to closely monitor.
[2018-10-17 20:22] LABS: Chloride, Urine 39.3 mmolL (110-250); Creatinine,Urine 36.3 mg/dL (0.1-20.0); Protein/Creatinine Ratio,Urine 1.35
[2018-10-17] MEDS: SENOKOT FEEDTUBE SCH (22:00)
[2018-10-18 01:09] LABS: Hematocrit 27.4 % (35.5-45.6); Hemoglobin 8.9 gm/dl (11.8-15.2); Mean Corpuscular HGB Conc 32 % (32-34); Mean Corpuscular Volume 85 fl (84-94); Red Blood Count 3.23 M/mm3 (3.65-5.03); Red Cell Distribution Width 19.6 % (13.2-15.2)
[2018-10-18 03:25] LABS: Band Neutrophils # (Manual) 0.7 K/mm3; Basophils % (Manual) 0 % (0.0-1.8); Eosinophils % (Manual) 0 % (0.0-4.3); Total Cells Counted 100
[2018-10-18 03:26] LABS: Anisocytosis 1+; Crenated RBC 1+; Target Cells Few
[2018-10-18 03:27] LABS: Platelet Estimate Appears Decreased
[2018-10-18 03:28] LABS: Platelet Count 56 K/mm3 (140-440)
[2018-10-18] MEDS: DUONEB *Not for PRN Use IH SCH ×4 (03:35→21:29)
[2018-10-18] MEDS: LEVOPHED DRIP 4 MG/NS 250 ML 4 MG/250 ML BAG IV SCH (04:45)
[2018-10-18] MEDS: FLAGYL 500 MG/100 ML 500 MG/100 ML BAG IV SCH (06:00)
[2018-10-18] MEDS: SYNTHROID PO SCH (06:05)
[2018-10-18] MEDS: SOLU-Medrol IV SCH ×3 (06:10→22:02)
[2018-10-18] MEDS: PULMICORT IH SCH ×2 (07:42→21:29)
[2018-10-18] MEDS: NACL 0.45% 1,000 ML IV SCH ×3 (08:14→22:02)
[2018-10-18] MEDS: PROzac PO SCH (10:36)
[2018-10-18] MEDS: SODIUM CHLORIDE FLUSH SYRINGE 10 ML IV SCH ×2 (10:37→22:12)
[2018-10-18] MEDS: PEPCID IV SCH (10:37)
[2018-10-18] MEDS: ASPIRIN FEEDTUBE SCH (10:37)
[2018-10-18] MEDS: VITAMIN D3 FEEDTUBE SCH (10:39)
--- NOTE | 2018-10-18 10:43 | Progress Note ---
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 Acute renal failure (likely due to dehydration) H/O cocaine abuse Anemia (multi-factorial) - CVP's initially measured a 2 mmHg and gentle hydration ongoing (changed from D5W to 1/2 NS re: persistent hypotension but in the setting of hypernatremia and AMS) - continue BIPAP scheduled qhs - continue aspiration precautions - continue bronchodilators with pulmonary hygiene per RT - continue to wean levophed for target MAP > 65 mmHg - continue free water flushes for hypernatremia (increased to 300mls q4h) - reduced solumedrol to 40 mg IV q8h - stopped Lovenox re: thrombocytopenia - placed nutrition consult and resume enteral nutrition as tolerated - continue GI prophylaxis - nephrology consultation per attending - continue Anti-infectives per ID rec's - Monitor renal indices closely - Avoid nephrotoxic agents, adjust all medications for CrCL - Strict intake and output monitoring - Accuchecks with glycemic control. Target glucose of 140-180 mg/dL - Maintenance of sleep -wake cycle - Mobility as tolerated by hemodynamics - Influenza and pneumonia vaccination per protocol ..discussed in ICU-IDT rounds PROGNOSIS: GUARDED CONDITION: CRITICAL CODE STATUS: FULL CODE The high probability of a clinically significant, sudden or life-threatening deterioration of the [respiratory] system(s) required my full and direct attention, intervention and personal management. The aggregate critical care time was [31] minutes without overlap. Time includes spent on; [x] Data Review and interpretation [x] Patient assessment and monitoring of vital signs [x] Documentation [x] Medication orders and management Subjective Date of service: 10/18/18 Principal diagnosis: Ac Hypoxemic Resp Failure; Pneumonia (HAP); Acute encephalopathy ; HIV/AIDS Interval history: Patient is seen today for: Acute Hypoxemic Respiratory Failure; Right midlung pneumonia (HAP); H/O Tracheostomy; COPD; Acute encephalopathy ; HIV/AIDS (viral load and CD4 unknown); H/o toxoplasmosis; H/o syphilitic encephalopathy Seen and examined at bedside; 24hour events reviewed; nursing and respiratory care staff consulted; no adverse overnight events reported to me; remains on supplemental oxygen; remains on Levophed drip; no emesis or overt aspiration; remains on supplemental oxygen; no N/V/F/C Objective Vital Signs - 12hr 10/17/18 10/17/18 10/17/18 22:51 23:00 23:11 Temperature Pulse Rate 99 H 98 H 98 H Pulse Rate [ Anterior Bilateral Throughout] Pulse Rate [ Bilateral] Pulse Rate [ From Monitor] Pulse Rate [ Right Dorsalis Pedis] Respiratory 19 18 20 Rate Respiratory Rate [Anterior Bilateral Throughout] Respiratory Rate [Bilateral ] Blood Pressure 100/65 105/63 105/63 O2 Sat by Pulse 96 95 96 Oximetry 10/17/18 10/17/18 10/17/18 23:21 23:30 23:41 Temperature Pulse Rate 98 H 98 H 99 H Pulse Rate [ Anterior Bilateral Throughout] Pulse Rate [ Bilateral] Pulse Rate [ From Monitor] Pulse Rate [ Right Dorsalis Pedis] Respiratory 21 19 19 Rate Respiratory Rate [Anterior Bilateral Throughout] Respiratory Rate [Bilateral ] Blood Pressure 103/61 110/67 110/67 O2 Sat by Pulse 96 95 96 Oximetry 10/17/18 10/18/18 10/18/18 23:51 00:00 00:11 Temperature 96.0 F L Pulse Rate 99 H 97 H 99 H Pulse Rate [ Anterior Bilateral Throughout] Pulse Rate [ Bilateral] Pulse Rate [ 98 H From Monitor] Pulse Rate [ 98 H Right Dorsalis Pedis] Respiratory 20 20 20 Rate Respiratory Rate [Anterior Bilateral Throughout] Respiratory Rate [Bilateral ] Blood Pressure 103/66 105/66 105/66 O2 Sat by Pulse 96 95 95 Oximetry 10/18/18 10/18/18 10/18/18 00:19 00:21 00:30 Temperature Pulse Rate 99 H 100 H 101 H Pulse Rate [ Anterior Bilateral Throughout] Pulse Rate [ Bilateral] Pulse Rate [ From Monitor] Pulse Rate [ Right Dorsalis Pedis] Respiratory 20 19 18 Rate Respiratory Rate [Anterior Bilateral Throughout] Respiratory Rate [Bilateral ] Blood Pressure 112/73 112/73 97/67 O2 Sat by Pulse 96 96 95 Oximetry 10/18/18 10/18/18 10/18/18 00:41 00:51 01:00 Temperature Pulse Rate 100 H 102 H 104 H Pulse Rate [ Anterior Bilateral Throughout] Pulse Rate [ Bilateral] Pulse Rate [ From Monitor] Pulse Rate [ Right Dorsalis Pedis] Respiratory 18 17 18 Rate Respiratory Rate [Anterior Bilateral Throughout] Respiratory Rate [Bilateral ] Blood Pressure 97/67 104/63 109/65 O2 Sat by Pulse 96 95 94 Oximetry 10/18/18 10/18/18 10/18/18 01:11 01:21 01:30 Temperature Pulse Rate 105 H 107 H 108 H Pulse Rate [ Anterior Bilateral Throughout] Pulse Rate [ Bilateral] Pulse Rate [ From Monitor] Pulse Rate [ Right Dorsalis Pedis] Respiratory 18 20 23 Rate Respiratory Rate [Anterior Bilateral Throughout] Respiratory Rate [Bilateral ] Blood Pressure 109/65 104/63 101/60 O2 Sat by Pulse 94 93 94 Oximetry 10/18/18 10/18/18 10/18/18 01:41 01:51 02:00 Temperature Pulse Rate 110 H 112 H 111 H Pulse Rate [ Anterior Bilateral Throughout] Pulse Rate [ Bilateral] Pulse Rate [ From Monitor] Pulse Rate [ Right Dorsalis Pedis] Respiratory 21 25 H 21 Rate Respiratory Rate [Anterior Bilateral Throughout] Respiratory Rate [Bilateral ] Blood Pressure 101/60 103/61 110/57 O2 Sat by Pulse 93 91 92 Oximetry 10/18/18 10/18/18 10/18/18 02:11 02:21 02:30 Temperature Pulse Rate 112 H 114 H 113 H Pulse Rate [ Anterior Bilateral Throughout] Pulse Rate [ Bilateral] Pulse Rate [ From Monitor] Pulse Rate [ Right Dorsalis Pedis] Respiratory 23 22 23 Rate Respiratory Rate [Anterior Bilateral Throughout] Respiratory Rate [Bilateral ] Blood Pressure 110/57 108/60 101/62 O2 Sat by Pulse 95 96 95 Oximetry 10/18/18 10/18/18 10/18/18 02:41 02:51 03:00 Temperature Pulse Rate 114 H 115 H 117 H Pulse Rate [ Anterior Bilateral Throughout] Pulse Rate [ Bilateral] Pulse Rate [ From Monitor] Pulse Rate [ Right Dorsalis Pedis] Respiratory 22 24 24 Rate Respiratory Rate [Anterior Bilateral Throughout] Respiratory Rate [Bilateral ] Blood Pressure 101/62 110/61 104/59 O2 Sat by Pulse 95 95 94 Oximetry 10/18/18 10/18/18 10/18/18 03:11 03:21 03:25 Temperature Pulse Rate 114 H 115 H Pulse Rate [ 110 H Anterior Bilateral Throughout] Pulse Rate [ Bilateral] Pulse Rate [ From Monitor] Pulse Rate [ Right Dorsalis Pedis] Respiratory 21 21 Rate Respiratory 25 H Rate [Anterior Bilateral Throughout] Respiratory Rate [Bilateral ] Blood Pressure 104/59 104/58 O2 Sat by Pulse 95 95 Oximetry 10/18/18 10/18/18 10/18/18 03:30 03:36 03:41 Temperature Pulse Rate 115 H 117 H Pulse Rate [ 115 H Anterior Bilateral Throughout] Pulse Rate [ Bilateral] Pulse Rate [ From Monitor] Pulse Rate [ Right Dorsalis Pedis] Respiratory 21 24 Rate Respiratory 22 Rate [Anterior Bilateral Throughout] Respiratory Rate [Bilateral ] Blood Pressure 103/60 103/60 O2 Sat by Pulse 95 95 Oximetry 10/18/18 10/18/18 10/18/18 03:51 04:00 04:01 Temperature 98.4 F Pulse Rate 116 H 117 H Pulse Rate [ Anterior Bilateral Throughout] Pulse Rate [ Bilateral] Pulse Rate [ 88 From Monitor] Pulse Rate [ 88 Right Dorsalis Pedis] Respiratory 24 20 Rate Respiratory Rate [Anterior Bilateral Throughout] Respiratory Rate [Bilateral ] Blood Pressure 102/59 96/52 O2 Sat by Pulse 90 96 87 Oximetry 10/18/18 10/18/18 10/18/18 04:11 04:21 04:30 Temperature Pulse Rate 113 H 114 H 113 H Pulse Rate [ Anterior Bilateral Throughout] Pulse Rate [ Bilateral] Pulse Rate [ From Monitor] Pulse Rate [ Right Dorsalis Pedis] Respiratory 20 26 H 20 Rate Respiratory Rate [Anterior Bilateral Throughout] Respiratory Rate [Bilateral ] Blood Pressure 96/52 94/52 100/55 O2 Sat by Pulse 96 96 95 Oximetry 10/18/18 10/18/18 10/18/18 04:41 04:51 05:00 Temperature Pulse Rate 113 H 114 H 113 H Pulse Rate [ Anterior Bilateral Throughout] Pulse Rate [ Bilateral] Pulse Rate [ From Monitor] Pulse Rate [ Right Dorsalis Pedis] Respiratory 22 23 23 Rate Respiratory Rate [Anterior Bilateral Throughout] Respiratory Rate [Bilateral ] Blood Pressure 100/55 94/52 91/53 O2 Sat by Pulse 96 96 93 Oximetry 10/18/18 10/18/18 10/18/18 05:11 05:21 05:30 Temperature Pulse Rate 113 H 112 H 112 H Pulse Rate [ Anterior Bilateral Throughout] Pulse Rate [ Bilateral] Pulse Rate [ From Monitor] Pulse Rate [ Right Dorsalis Pedis] Respiratory 24 19 24 Rate Respiratory Rate [Anterior Bilateral Throughout] Respiratory Rate [Bilateral ] Blood Pressure 91/53 97/46 101/54 O2 Sat by Pulse 94 94 92 Oximetry 05/01/2910/18/18 10/18/18 05:41 05:51 06:00 Temperature Pulse Rate 111 H 112 H 112 H Pulse Rate [ Anterior Bilateral Throughout] Pulse Rate [ Bilateral] Pulse Rate [ From Monitor] Pulse Rate [ Right Dorsalis Pedis] Respiratory 23 25 H 24 Rate Respiratory Rate [Anterior Bilateral Throughout] Respiratory Rate [Bilateral ] Blood Pressure 101/54 88/55 108/61 O2 Sat by Pulse 94 93 93 Oximetry 10/18/18 10/18/18 10/18/18 06:11 06:21 06:30 Temperature Pulse Rate 113 H 112 H 112 H Pulse Rate [ Anterior Bilateral Throughout] Pulse Rate [ Bilateral] Pulse Rate [ From Monitor] Pulse Rate [ Right Dorsalis Pedis] Respiratory 22 25 H 23 Rate Respiratory Rate [Anterior Bilateral Throughout] Respiratory Rate [Bilateral ] Blood Pressure 108/61 108/60 108/60 O2 Sat by Pulse 94 94 94 Oximetry 10/18/18 10/18/18 10/18/18 06:41 06:51 07:00 Temperature Pulse Rate 113 H 114 H 111 H Pulse Rate [ Anterior Bilateral Throughout] Pulse Rate [ Bilateral] Pulse Rate [ From Monitor] Pulse Rate [ Right Dorsalis Pedis] Respiratory 21 15 14 Rate Respiratory Rate [Anterior Bilateral Throughout] Respiratory Rate [Bilateral ] Blood Pressure 108/60 106/59 103/56 O2 Sat by Pulse 95 94 94 Oximetry 10/18/18 10/18/18 10/18/18 07:11 07:21 07:30 Temperature Pulse Rate 111 H 111 H 109 H Pulse Rate [ Anterior Bilateral Throughout] Pulse Rate [ Bilateral] Pulse Rate [ From Monitor] Pulse Rate [ Right Dorsalis Pedis] Respiratory 25 H 20 21 Rate Respiratory Rate [Anterior Bilateral Throughout] Respiratory Rate [Bilateral ] Blood Pressure 103/56 101/57 98/59 O2 Sat by Pulse 94 94 94 Oximetry 10/18/18 10/18/18 10/18/18 07:41 07:42 07:51 Temperature Pulse Rate 110 H 109 H Pulse Rate [ 110 H Anterior Bilateral Throughout] Pulse Rate [ 110 H Bilateral] Pulse Rate [ From Monitor] Pulse Rate [ Right Dorsalis Pedis] Respiratory 20 23 Rate Respiratory 22 Rate [Anterior Bilateral Throughout] Respiratory 21 Rate [Bilateral ] Blood Pressure 98/59 102/57 O2 Sat by Pulse 95 96 Oximetry 10/18/18 10/18/18 10/18/18 08:00 08:11 08:21 Temperature Pulse Rate 112 H 114 H 113 H Pulse Rate [ Anterior Bilateral Throughout] Pulse Rate [ Bilateral] Pulse Rate [ From Monitor] Pulse Rate [ Right Dorsalis Pedis] Respiratory 18 23 14 Rate Respiratory Rate [Anterior Bilateral Throughout] Respiratory Rate [Bilateral ] Blood Pressure 100/54 100/54 99/56 O2 Sat by Pulse 95 95 94 Oximetry 10/18/18 08:51 Temperature Pulse Rate Pulse Rate [ Anterior Bilateral Throughout] Pulse Rate [ Bilateral] Pulse Rate [ From Monitor] Pulse Rate [ Right Dorsalis Pedis] Respiratory Rate Respiratory Rate [Anterior Bilateral Throughout] Respiratory Rate [Bilateral ] Blood Pressure O2 Sat by Pulse 94 Oximetry Constitutional: appears uncomfortable, other (middle aged and chronically ill looking AAM with increased resp effort at rest) Eyes: non-icteric ENT: oropharynx moist, other (mallampati 2) Neck: supple, no lymphadenopathy, no JVD, other (no thyromegaly) Effort: mildly labored Ascultation: Bilateral: diminished breath sounds, rhonchi Percussion: Bilateral: not dull Cardiovascular: regular rate and rhythm Gastrointestinal: normoactive bowel sounds, soft, non-tender, non-distended Integumentary: other (poor turgor) Extremities: no cyanosis, no edema, pulses normal, no ischemia or petechiae Neurologic: pupils equal and round, other (+ cognitive dysfunction) Psychiatric: other (flat ) CBC and BMP: 10/18/18 00:50 10/21/18 04:44 ABG, PT/INR, D-dimer: ABG POC ABG pH 7.328 (7.35-7.45) L 10/17/18 21:24 POC ABG pO2 66 (80-105) L 10/17/18 21:24 POC ABG HCO3 14.0 (22-26 mml/L) 10/17/18 21:24 POC ABG Total CO2 15 (23-27mmol/L) 10/17/18 21:24 POC ABG O2 Sat 92 10/17/18 21:24 Abnormal lab findings: Abnormal Labs 10/14/18 10/14/18 10/14/18 23:21 23:21 23:21 WBC RBC Hgb 10.2 L Hct 32.0 L MCH MCHC RDW 18.9 H Plt Count 100 L Seg Neuts % (Manual) 34.0 L Lymphocytes % (Manual) Monocytes % (Manual) Nucleated RBC % Seg Neutrophils # Man 1.7 L Lymphocytes # (Manual) 0.8 L POC ABG pH POC ABG pCO2 POC ABG pO2 Sodium 156 H Potassium Chloride 117.8 H Carbon Dioxide 19 L BUN 124 H Creatinine 4.8 H Glucose POC Glucose Lactic Acid 4.90 H* Calcium Magnesium AST 72 H ALT Troponin T 0.034 H C-Reactive Protein Albumin 1.9 L LDL Cholesterol Direct 13 L HDL Cholesterol 28 L Free T4 Thyroxine (T4) Urine Creatinine Urine Chloride Urine Total Protein 10/15/18 10/15/18 10/15/18 00:50 03:46 04:29 WBC RBC Hgb Hct MCH MCHC RDW Plt Count Seg Neuts % (Manual) Lymphocytes % (Manual) Monocytes % (Manual) Nucleated RBC % Seg Neutrophils # Man Lymphocytes # (Manual) POC ABG pH POC ABG pCO2 POC ABG pO2 Sodium Potassium Chloride Carbon Dioxide BUN Creatinine Glucose POC Glucose Lactic Acid 3.30 H* 2.20 H* 2.20 H* Calcium Magnesium AST ALT Troponin T C-Reactive Protein Albumin LDL Cholesterol Direct HDL Cholesterol Free T4 Thyroxine (T4) Urine Creatinine Urine Chloride Urine Total Protein 10/15/18 10/15/18 10/15/18 05:37 06:18 09:16 WBC RBC Hgb Hct MCH MCHC RDW Plt Count Seg Neuts % (Manual) Lymphocytes % (Manual) Monocytes % (Manual) Nucleated RBC % Seg Neutrophils # Man Lymphocytes # (Manual) POC ABG pH POC ABG pCO2 POC ABG pO2 Sodium Potassium Chloride Carbon Dioxide BUN Creatinine Glucose POC Glucose Lactic Acid 2.30 H* 2.50 H* 3.10 H* Calcium Magnesium AST ALT Troponin T C-Reactive Protein Albumin LDL Cholesterol Direct HDL Cholesterol Free T4 Thyroxine (T4) Urine Creatinine Urine Chloride Urine Total Protein 10/15/18 10/15/18 10/15/18 09:16 13:03 15:13 WBC RBC Hgb Hct MCH MCHC RDW Plt Count Seg Neuts % (Manual) Lymphocytes % (Manual) Monocytes % (Manual) Nucleated RBC % Seg Neutrophils # Man Lymphocytes # (Manual) POC ABG pH 7.308 L POC ABG pCO2 33.1 L POC ABG pO2 70 L Sodium 158 H Potassium Chloride 121.1 H Carbon Dioxide 19 L BUN 120 H Creatinine 4.3 H Glucose 119 H POC Glucose Lactic Acid 2.70 H* Calcium 8.0 L Magnesium AST ALT Troponin T C-Reactive Protein Albumin LDL Cholesterol Direct HDL Cholesterol Free T4 Thyroxine (T4) Urine Creatinine Urine Chloride Urine Total Protein 10/16/18 10/16/18 10/16/18 05:18 05:18 12:40 WBC 4.2 L RBC Hgb 10.8 L Hct 34.9 L MCH 27 L MCHC 31 L RDW 19.6 H Plt Count 38 L Seg Neuts % (Manual) 39.0 L Lymphocytes % (Manual) 9.0 L Monocytes % (Manual) 12.0 H Nucleated RBC % Seg Neutrophils # Man 1.6 L Lymphocytes # (Manual) 0.4 L POC ABG pH POC ABG pCO2 POC ABG pO2 Sodium 161 H* Potassium 3.5 L Chloride 130.6 H Carbon Dioxide 18 L BUN 105 H Creatinine 3.4 H Glucose POC Glucose Lactic Acid Calcium Magnesium AST 522 H ALT 167 H Troponin T C-Reactive Protein Albumin 1.5 L LDL Cholesterol Direct HDL Cholesterol Free T4 0.38 L Thyroxine (T4) Urine Creatinine Urine Chloride Urine Total Protein 10/16/18 10/16/18 10/16/18 12:40 15:19 23:43 WBC RBC Hgb Hct MCH MCHC RDW Plt Count Seg Neuts % (Manual) Lymphocytes % (Manual) Monocytes % (Manual) Nucleated RBC % Seg Neutrophils # Man Lymphocytes # (Manual) POC ABG pH POC ABG pCO2 POC ABG pO2 62 L Sodium Potassium Chloride Carbon Dioxide BUN Creatinine Glucose POC Glucose 174 H Lactic Acid Calcium Magnesium AST ALT Troponin T C-Reactive Protein Albumin LDL Cholesterol Direct HDL Cholesterol Free T4 Thyroxine (T4) 1.8 L Urine Creatinine Urine Chloride Urine Total Protein 10/17/18 10/17/18 10/17/18 00:17 06:55 11:57 WBC RBC Hgb Hct MCH MCHC RDW Plt Count Seg Neuts % (Manual) Lymphocytes % (Manual) Monocytes % (Manual) Nucleated RBC % Seg Neutrophils # Man Lymphocytes # (Manual) POC ABG pH POC ABG pCO2 POC ABG pO2 63 L Sodium Potassium Chloride Carbon Dioxide BUN Creatinine Glucose POC Glucose 129 H 174 H Lactic Acid Calcium Magnesium AST ALT Troponin T C-Reactive Protein Albumin LDL Cholesterol Direct HDL Cholesterol Free T4 Thyroxine (T4) Urine Creatinine Urine Chloride Urine Total Protein 10/17/18 10/17/18 10/17/18 14:41 14:41 18:56 WBC RBC Hgb Hct MCH MCHC RDW Plt Count Seg Neuts % (Manual) Lymphocytes % (Manual) Monocytes % (Manual) Nucleated RBC % Seg Neutrophils # Man Lymphocytes # (Manual) POC ABG pH POC ABG pCO2 POC ABG pO2 Sodium 150 H D Potassium 3.3 L Chloride 122.3 H Carbon Dioxide 18 L BUN 91 H Creatinine 2.9 H Glucose 140 H POC Glucose 125 H Lactic Acid Calcium 8.0 L Magnesium 1.60 L AST ALT Troponin T C-Reactive Protein 21.20 H Albumin LDL Cholesterol Direct HDL Cholesterol Free T4 Thyroxine (T4) Urine Creatinine Urine Chloride Urine Total Protein 10/17/18 10/17/18 10/17/18 19:45 21:24 23:54 WBC RBC Hgb Hct MCH MCHC RDW Plt Count Seg Neuts % (Manual) Lymphocytes % (Manual) Monocytes % (Manual) Nucleated RBC % Seg Neutrophils # Man Lymphocytes # (Manual) POC ABG pH 7.328 L POC ABG pCO2 POC ABG pO2 66 L Sodium Potassium Chloride Carbon Dioxide BUN Creatinine Glucose POC Glucose 128 H Lactic Acid Calcium Magnesium AST ALT Troponin T C-Reactive Protein Albumin LDL Cholesterol Direct HDL Cholesterol Free T4 Thyroxine (T4) Urine Creatinine 36.3 H Urine Chloride 39.3 L Urine Total Protein 49 H 10/18/18 10/18/18 00:50 05:55 WBC RBC 3.23 L Hgb 8.9 L Hct 27.4 L D MCH MCHC RDW 19.6 H Plt Count 56 L Seg Neuts % (Manual) 81.0 H Lymphocytes % (Manual) 9.0 L Monocytes % (Manual) Nucleated RBC % 1.0 H Seg Neutrophils # Man 8.4 H Lymphocytes # (Manual) 0.9 L POC ABG pH POC ABG pCO2 POC ABG pO2 Sodium Potassium Chloride Carbon Dioxide BUN Creatinine Glucose POC Glucose 147 H Lactic Acid Calcium Magnesium AST ALT Troponin T C-Reactive Protein Albumin LDL Cholesterol Direct HDL Cholesterol Free T4 Thyroxine (T4) Urine Creatinine Urine Chloride Urine Total Protein Allied health notes reviewed: nursing
--- NOTE | 2018-10-18 11:23 | Progress Note ---
Assessment and Plan Cultures: Blood culture 10/14/2018 Staph Aureus, 2 out of 4 bottles, maguire suceptibile Blood culture 10/16/2018:no growth to date Urine culture 10/14/2018 negative Assessment: 58-year-old male with history of HIV AIDS, cachexia, toxoplasmosis, CVA with residual weakness, status post tracheostomy reversal for previous respiratory failure, syphilitic encephalitis, traumatic brain injury, cocaine and tobacco abuse, residential resident at [facility]; readmitted on 10/14/2018 due to AMS/lethargic and worsening shortness of breath for 34 hours. Patient is not able to provide a history, currently non verbal in mild respiratory distress. 1) Sepsis: Improved. off pressors. Etiology most likely pneumonia +/- GPC bacteremia 2) Pneumonia: possible aspiration pneumonia vs HAP. CXR showed probably COPD and right sided pneumonia. 3) Staph Aureus Bacteremia:. Blood culture 10/14/2018 showed Staph aureaus 2 out of 4 bottles.. Source unclear. TTE shows no vegetation. Repeat blood cultures show no growth to date. 4) Recent bilateral pneumonia, R>L causing acute respiratory failure, it was felt probably HCAP vs aspiration treated with cefepime and flagyl IV then changed to augmentin suspension 875mg PO BID for total 7 days. admission 08/27- 09/01/2018 5) HIV / AIDS: last viral load in March 2018 was undetectable and CD4 count w as more than 700 on tenofovir, lamivudine, ritonavir boosted darunavir 6) Acute on Chronic respiratory failure 7) Acute on chronic encephalopathy 8) Cachexia 9) DAMON: antibiotic renally dosed. Will contact pharmacy to restart ART therapy renally dosed Recommendations: - follow-up repeat blood culture - follow-up sputum culture - follow-up CD4/VL - follow-up stool cultures and C diff - discontinue cefepime, flagyl and vancomycin -Will contact Pharmacy to restart ART therapy renally dosed -start cefazolin 2gms IV every 24 hours [facility] M: [phone] O:[phone] Subjective Date of service: 10/18/18 Principal diagnosis: Ac Hypoxemic Resp Failure; Pneumonia (HAP); Acute encephalopathy ; HIV/AIDS Interval history: Patient seen and examined. On venti mask. Does not follow commands. no fevers. Objective - Exam Narrative Exam: General appearance: somnolent in mild resp distress on venti mask Eyes: anicteric sclerae, moist conjunctivae; no lid-lag; PERRLA HENT: Atraumatic; oropharynx limited Neck: Trachea midline; supple, no thyromegaly or lymphadenopathy Lungs: king rhonchi, On venti mask CV: tachycardia Abdomen: Soft, non-tender; +PEG +diarrhea Extremities: No peripheral edema or extremity lymphadenopathy Skin: diffuse skin desquamation Psych: no agitated. Neuro: somnolent non verbal position - Constitutional Vitals: Vital Signs Temp Pulse Resp BP Pulse Ox 98.4 F 113 H 14 99/56 94 10/18/18 04:00 10/18/18 08:21 10/18/18 08:21 10/18/18 08:21 10/18/18 08:51 Temperature -Last 24 Hours Temperature 98.4 F Temperature 96.0 F Temperature 97.0 F Temperature 97.2 F Temperature 97.8 F - Labs CBC & Chem 7: 10/18/18 00:50 10/18/18 16:41 Labs: Abnormal lab results 10/17/18 10/17/18 10/17/18 Range/Units 06:55 11:57 14:41 RBC (3.65-5.03) M/mm3 Hgb (11.8-15.2) gm/dl Hct (35.5-45.6) % RDW (13.2-15.2) % Plt Count (140-440) K/mm3 Seg Neuts % (Manual) (40.0-70.0) % Lymphocytes % (Manual) (13.4-35.0) % Nucleated RBC % (0.0-0.9) % Seg Neutrophils # Man (1.8-7.7) K/mm3 Lymphocytes # (Manual) (1.2-5.4) K/mm3 POC ABG pH (7.35-7.45) POC ABG pO2 (80-105) Sodium 150 H D (137-145) mmol/L Potassium 3.3 L (3.6-5.0) mmol/L Chloride 122.3 H (98-107) mmol/L Carbon Dioxide 18 L (22-30) mmol/L BUN 91 H (9-20) mg/dL Creatinine 2.9 H (0.8-1.5) mg/dL Glucose 140 H (75-100) mg/dL POC Glucose 129 H 174 H (70-105) Calcium 8.0 L (8.4-10.2) mg/dL Magnesium 1.60 L (1.7-2.3) mg/dL C-Reactive Protein (0.00-1.30) mg/dL Urine Creatinine (0.1-20.0) mg/dL Urine Chloride (110-250) mmolL Urine Total Protein (5-11.8) mg/dL 10/17/18 10/17/18 10/17/18 Range/Units 14:41 18:56 19:45 RBC (3.65-5.03) M/mm3 Hgb (11.8-15.2) gm/dl Hct (35.5-45.6) % RDW (13.2-15.2) % Plt Count (140-440) K/mm3 Seg Neuts % (Manual) (40.0-70.0) % Lymphocytes % (Manual) (13.4-35.0) % Nucleated RBC % (0.0-0.9) % Seg Neutrophils # Man (1.8-7.7) K/mm3 Lymphocytes # (Manual) (1.2-5.4) K/mm3 POC ABG pH (7.35-7.45) POC ABG pO2 (80-105) Sodium (137-145) mmol/L Potassium (3.6-5.0) mmol/L Chloride (98-107) mmol/L Carbon Dioxide (22-30) mmol/L BUN (9-20) mg/dL Creatinine (0.8-1.5) mg/dL Glucose (75-100) mg/dL POC Glucose 125 H (70-105) Calcium (8.4-10.2) mg/dL Magnesium (1.7-2.3) mg/dL C-Reactive Protein 21.20 H (0.00-1.30) mg/dL Urine Creatinine 36.3 H (0.1-20.0) mg/dL Urine Chloride 39.3 L (110-250) mmolL Urine Total Protein 49 H (5-11.8) mg/dL 10/17/18 10/17/18 10/18/18 Range/Units 21:24 23:54 00:50 RBC 3.23 L (3.65-5.03) M/mm3 Hgb 8.9 L (11.8-15.2) gm/dl Hct 27.4 L D (35.5-45.6) % RDW 19.6 H (13.2-15.2) % Plt Count 56 L (140-440) K/mm3 Seg Neuts % (Manual) 81.0 H (40.0-70.0) % Lymphocytes % (Manual) 9.0 L (13.4-35.0) % Nucleated RBC % 1.0 H (0.0-0.9) % Seg Neutrophils # Man 8.4 H (1.8-7.7) K/mm3 Lymphocytes # (Manual) 0.9 L (1.2-5.4) K/mm3 POC ABG pH 7.328 L (7.35-7.45) POC ABG pO2 66 L (80-105) Sodium (137-145) mmol/L Potassium (3.6-5.0) mmol/L Chloride (98-107) mmol/L Carbon Dioxide (22-30) mmol/L BUN (9-20) mg/dL Creatinine (0.8-1.5) mg/dL Glucose (75-100) mg/dL POC Glucose 128 H (70-105) Calcium (8.4-10.2) mg/dL Magnesium (1.7-2.3) mg/dL C-Reactive Protein (0.00-1.30) mg/dL Urine Creatinine (0.1-20.0) mg/dL Urine Chloride (110-250) mmolL Urine Total Protein (5-11.8) mg/dL 10/18/18 Range/Units 05:55 RBC (3.65-5.03) M/mm3 Hgb (11.8-15.2) gm/dl Hct (35.5-45.6) % RDW (13.2-15.2) % Plt Count (140-440) K/mm3 Seg Neuts % (Manual) (40.0-70.0) % Lymphocytes % (Manual) (13.4-35.0) % Nucleated RBC % (0.0-0.9) % Seg Neutrophils # Man (1.8-7.7) K/mm3 Lymphocytes # (Manual) (1.2-5.4) K/mm3 POC ABG pH (7.35-7.45) POC ABG pO2 (80-105) Sodium (137-145) mmol/L Potassium (3.6-5.0) mmol/L Chloride (98-107) mmol/L Carbon Dioxide (22-30) mmol/L BUN (9-20) mg/dL Creatinine (0.8-1.5) mg/dL Glucose (75-100) mg/dL POC Glucose 147 H (70-105) Calcium (8.4-10.2) mg/dL Magnesium (1.7-2.3) mg/dL C-Reactive Protein (0.00-1.30) mg/dL Urine Creatinine (0.1-20.0) mg/dL Urine Chloride (110-250) mmolL Urine Total Protein (5-11.8) mg/dL
[2018-10-18] MEDS ORDERED: MAGNESIUM SULFATE 3 GM in NACL 0.9% 100 ML IV ONE (12:00)
--- NOTE | 2018-10-18 15:16 | Progress Note ---
Assessment and Plan Assessment and plan: 58 year old man with history of HIV, toxoplasmosis, severe the reservoir deficits, syphilitic encephalopathy, history of polysubstance abuse including cocaine. He status post trach and tree traversal, has a g-tube still intact. The patient was brought from [facility] for respiratory distress and altered mental status Sepsis secondary to pneumonia, septic shock Infectious disease consultants, continue antibiotics, cont IV pressors, IV fluids Acute kidney injury due to vasomotor nephropathy and ATN IV fluids, nephrology Hypernatremia Hypotonic IV fluid, free water via g-tube Acute hypoxic respiratory failure Continue oxygen via venti mask and BiPAP as tolerated Hypothyroidism thyroid function tests show low T4 and low free T4, increase synthroid dose DVT prophylaxis with heparin subcutaneously History Interval history: Patient was seen and evaluated this morning. No nursing issues reported overnight. Hospitalist Physical - Physical exam Narrative exam: Not in cardiopulmonary distress. The patient is cachectic. Vital signs as documented. Head exam is unremarkable. No scleral icterus . Neck is without jugular venous distension, thyromegaly, or carotid bruits. Lungs are clear to auscultation. Cardiac exam reveals regular rate and Rhythm. Abdominal exam reveals normal bowel sounds, no masses, no organomegaly and no aortic enlargement. Extremities are nonedematous and both femoral and pedal pulses are normal. LUMBER STICKER: patient is non verbal - Constitutional Vitals: Temp Pulse Resp BP Pulse Ox 98.4 F 103 H 16 99/56 96 10/18/18 04:00 10/18/18 13:39 10/18/18 13:39 10/18/18 08:21 10/18/18 12:00 General appearance: Present: severe distress, cachectic Results - Labs CBC & Chem 7: 10/18/18 00:50 10/18/18 16:41 Labs: Laboratory Last Values WBC 10.4 K/mm3 (4.5-11.0) 10/18/18 00:50 RBC 3.23 M/mm3 (3.65-5.03) L 10/18/18 00:50 Hgb 8.9 gm/dl (11.8-15.2) L 10/18/18 00:50 Hct 27.4 % (35.5-45.6) L D 10/18/18 00:50 MCV 85 fl (84-94) 10/18/18 00:50 MCH 28 pg (28-32) 10/18/18 00:50 MCHC 32 % (32-34) 10/18/18 00:50 RDW 19.6 % (13.2-15.2) H 10/18/18 00:50 Plt Count 56 K/mm3 (140-440) L 10/18/18 00:50 Lymph % (Auto) [employer] 10/14/18 23:21 Mellette % (Auto) [employer] 10/14/18 23:21 Eos % (Auto) [employer] 10/14/18 23:21 Baso % (Auto) [employer] 10/14/18 23:21 Lymph # [employer] 10/14/18 23:21 Mellette # [employer] 10/14/18 23:21 Eos # [employer] 10/14/18 23:21 Baso # [employer] 10/14/18 23:21 Add Manual Diff Complete 10/18/18 00:50 Total Counted 100 10/18/18 00:50 Seg Neutrophils % [employer] 10/18/18 00:50 Seg Neuts % (Manual) 81.0 % (40.0-70.0) H 10/18/18 00:50 7.0 % 10/18/18 00:50 9.0 % (13.4-35.0) L 10/18/18 00:50 Reactive Lymphs % (Man) 0 % 10/18/18 00:50 3.0 % (0.0-7.3) 10/18/18 00:50 0 % (0.0-4.3) 10/18/18 00:50 0 % (0.0-1.8) 10/18/18 00:50 0 % 10/18/18 00:50 0 % 10/18/18 00:50 0 % 10/18/18 00:50 0 % 10/18/18 00:50 Nucleated RBC % 1.0 % (0.0-0.9) H 10/18/18 00:50 Seg Neutrophils # [employer] 10/14/18 23:21 Seg Neutrophils # Man 8.4 K/mm3 (1.8-7.7) H 10/18/18 00:50 Band Neutrophils # 0.7 K/mm3 10/18/18 00:50 0.9 K/mm3 (1.2-5.4) L 10/18/18 00:50 Abs React Lymphs (Man) 0.0 K/mm3 10/18/18 00:50 0.3 K/mm3 (0.0-0.8) 10/18/18 00:50 0.0 K/mm3 (0.0-0.4) 10/18/18 00:50 0.0 K/mm3 (0.0-0.1) 10/18/18 00:50 0.0 K/mm3 10/18/18 00:50 0.0 K/mm3 10/18/18 00:50 0.0 K/mm3 10/18/18 00:50 Blast Cells # 0.0 K/mm3 10/18/18 00:50 WBC Morphology Not Reportable 10/18/18 00:50 WBC Morphology TNR 10/18/18 00:50 Hypersegmented Neuts Not Reportable 10/18/18 00:50 Hyposegmented Neuts Not Reportable 10/18/18 00:50 Hypogranular Neuts Not Reportable 10/18/18 00:50 Not Reportable 10/18/18 00:50 Not Reportable 10/18/18 00:50 Not Reportable 10/18/18 00:50 Not Reportable 10/18/18 00:50 Not Reportable 10/18/18 00:50 Not Reportable 10/18/18 00:50 Appears decreased 10/18/18 00:50 Not Reportable 10/18/18 00:50 Plt Clumps, EDTA Not Reportable 10/18/18 00:50 Not Reportable 10/18/18 00:50 Not Reportable 10/18/18 00:50 Not Reportable 10/18/18 00:50 Plt Morphology Comment Not Reportable 10/18/18 00:50 RBC Morphology Not Reportable 10/18/18 00:50 Dimorphic RBCs Not Reportable 10/18/18 00:50 Not Reportable 10/18/18 00:50 Not Reportable 10/18/18 00:50 Not Reportable 10/18/18 00:50 1+ 10/18/18 00:50 Not Reportable 10/18/18 00:50 Not Reportable 10/18/18 00:50 Not Reportable 10/18/18 00:50 Not Reportable 10/18/18 00:50 Not Reportable 10/18/18 00:50 Few 10/18/18 00:50 Not Reportable 10/18/18 00:50 Not Reportable 10/18/18 00:50 Not Reportable 10/18/18 00:50 Not Reportable 10/18/18 00:50 Not Reportable 10/18/18 00:50 Not Reportable 10/18/18 00:50 Not Reportable 10/18/18 00:50 1+ 10/18/18 00:50 Not Reportable 10/18/18 00:50 Acanthocytes (Spur) Not Reportable 10/18/18 00:50 Rouleaux Not Reportable 10/18/18 00:50 Not Reportable 10/18/18 00:50 Not Reportable 10/18/18 00:50 Not Reportable 10/18/18 00:50 Not Reportable 10/18/18 00:50 Hem Pathologist Commnt No 10/18/18 00:50 POC ABG pH 7.347 (7.35-7.45) L 10/18/18 11:56 POC ABG pCO2 33.1 (35-45) L 10/15/18 13:03 POC ABG pO2 72 (80-105) L 10/18/18 11:56 POC ABG HCO3 14.5 (22-26 mml/L) 10/18/18 11:56 POC ABG Total CO2 15 (23-27mmol/L) 10/18/18 11:56 POC ABG O2 Sat 94 10/18/18 11:56 POC ABG Base Excess -11 ((-2) - (+3)mmol/L) 10/18/18 11:56 50 % 10/18/18 11:56 Sodium 150 mmol/L (137-145) H D 10/17/18 14:41 Potassium 3.3 mmol/L (3.6-5.0) L 10/17/18 14:41 Chloride 122.3 mmol/L (98-107) H 10/17/18 14:41 Carbon Dioxide 18 mmol/L (22-30) L 10/17/18 14:41 13 mmol/L 10/17/18 14:41 BUN 91 mg/dL (9-20) H 10/17/18 14:41 2.9 mg/dL (0.8-1.5) H 10/17/18 14:41 Estimated GFR 27 ml/min 10/17/18 14:41 31 % 10/17/18 14:41 Glucose 140 mg/dL (75-100) H 10/17/18 14:41 POC Glucose 147 (70-105) H 10/18/18 05:55 Lactic Acid 1.40 mmol/L (0.7-2.0) 10/17/18 14:41 Calcium 8.0 mg/dL (8.4-10.2) L 10/17/18 14:41 Magnesium 1.60 mg/dL (1.7-2.3) L 10/17/18 14:41 0.40 mg/dL (0.1-1.2) 10/16/18 05:18 AST 522 units/L (5-40) H 10/16/18 05:18 ALT 167 units/L (7-56) H 10/16/18 05:18 61 units/L (35-129) 10/16/18 05:18 0.034 ng/mL (0.00-0.029) H 10/14/18 23:21 21.20 mg/dL (0.00-1.30) H 10/17/18 14:41 6.4 g/dL (6.3-8.2) 10/16/18 05:18 1.5 g/dL (3.9-5) L 10/16/18 05:18 0.3 % 10/16/18 05:18 Triglycerides 63 mg/dL (2-149) 10/14/18 23:21 Cholesterol 59 mg/dL (50-199) 10/14/18 23:21 13 mg/dL (50-130) L 10/14/18 23:21 28 mg/dL (40-59) L 10/14/18 23:21 2.10 % 10/14/18 23:21 TSH 2.560 mlU/mL (0.270-4.200) 10/16/18 12:40 Free T4 0.38 ng/dL (0.76-1.46) L 10/16/18 12:40 1.8 ug/dL (4.0-12.0) L 10/16/18 12:40 Lindsay (Yellow) 10/14/18 01:27 Cloudy (Clear) 10/14/18 01:27 5.0 (5.0-7.0) 10/14/18 01:27 Ur Specific Alden 1.020 (1.003-1.030) 10/14/18 01:27 100 mg/dl mg/dL (Negative) 10/14/18 01:27 Neg mg/dL (Negative) 10/14/18 01:27 Neg mg/dL (Negative) 10/14/18 01:27 Lg (Negative) 10/14/18 01:27 Neg (Negative) 10/14/18 01:27 Neg (Negative) 10/14/18 01:27 2.0 mg/dL (<2.0) 10/14/18 01:27 Ur Leukocyte Esterase Neg (Negative) 10/14/18 01:27 6.0 /HPF (0.0-6.0) 10/14/18 01:27 95.0 /HPF (0.0-6.0) 10/14/18 01:27 U Epithel Cells (Auto) < 1.0 /HPF (0-13.0) 10/14/18 01:27 Amorphous Crystals 3+ 10/14/18 01:27 Hyaline Casts 4 /LPF 10/14/18 01:27 Granular Casts 2 /LPF 10/14/18 01:27 1+ /HPF 10/14/18 01:27 36.3 mg/dL (0.1-20.0) H 10/17/18 19:45 Protein/Creatinin Ratio 1.35 10/17/18 19:45 46 mmol/L 10/17/18 19:45 39.3 mmolL (110-250) L 10/17/18 19:45 49 mg/dL (5-11.8) H 10/17/18 19:45 Random Vancomycin 7.6 ug/mL (0-40.0) 10/17/18 05:20 Active Medications - Current Medications Current Medications: Generic Name Dose Route Start Last Admin Trade Name Freq PRN Reason Stop Dose Admin Acetaminophen 650 mg 10/15/18 03:28 Tylenol PO Q4H PRN Pain MILD(1-3)/Fever >100.5/DELGADO Albuterol 2.5 mg 10/16/18 10:30 Proventil IH Q4HRT PRN Shortness Of Breath Albuterol/Ipratropium 1 ampul 10/15/18 14:00 10/18/18 13:38 Duoneb *Not For Prn Use* IH 1 ampul Q6HRT BLOSSOM Administration Lipase/Protease/Amylase 1 each 10/16/18 16:[address] 10,500 Unit FEEDTUBE PRN PRN For Clogged Feeding Tube Aspirin 325 mg 10/17/18 10:00 10/18/18 10:37 Aspirin FEEDTUBE 325 mg DAILY BLOSSOM Administration Atorvastatin Calcium 20 mg 10/16/18 22:00 10/17/18 22:00 Lipitor FEEDTUBE 20 mg HS BLOSSOM Administration Bisacodyl 10 mg 10/16/18 10:30 Dulcolax FL DAILY PRN Constipation Budesonide 0.5 mg 10/15/18 20:00 10/18/18 07:42 Pulmicort IH 0.5 mg Q12HRT BLOSSOM Administration Cholecalciferol 2,000 unit 10/17/18 10:00 10/18/18 10:39 Vitamin D3 FEEDTUBE 2,000 unit QAM BLOSSOM Administration Docusate Sodium 100 mg 10/16/18 10:30 Colace FEEDTUBE Q12H PRN Constipation Famotidine 20 mg 10/15/18 10:00 10/18/18 10:37 Pepcid IV 20 mg QAM BLOSSOM Administration Fluoxetine HCl 40 mg 10/17/18 10:00 10/18/18 10:36 Prozac PO 40 mg QDAY BLOSSOM Administration Norepinephrine 4 mg in 250 mls @ 7.5 mls/hr 10/15/18 13:00 10/18/18 04:45 Levophed Drip 4 Mg/Ns 250 Ml IV 4 mcg/min TITR BLOSSOM 15 mls/hr Administration Protocol 2 MCG/MIN Sodium Chloride 1,000 mls @ 75 mls/hr 10/17/18 16:00 10/18/18 08:45 Nacl 0.45% IV 10/21/18 05:19 75 mls/hr DIRECT BLOSSOM Administration Cefazolin Sodium 2 gm/ Sodium 100 mls @ 100 mls/hr 10/18/18 12:00 Chloride IV Q24HR BLOSSOM Levothyroxine Sodium 75 mcg 10/18/18 06:00 10/18/18 06:05 Synthroid PO 75 mcg DAILY@0600 BLOSSOM Administration Methylprednisolone Sodium Succinate 40 mg 10/16/18 14:00 10/18/18 06:10 Solu-Medrol IV 40 mg Q8HR BLOSSOM Administration Morphine Sulfate 2 mg 10/15/18 03:28 Morphine IV Q4H PRN Pain, Moderate (4-6) Ondansetron HCl 4 mg 10/15/18 03:28 Zofran IV Q8H PRN Nausea And Vomiting Polyethylene Glycol 17 gm 10/16/18 10:30 Miralax 3350 FEEDTUBE DAILY PRN Constipation Quetiapine Fumarate 100 mg 10/16/18 11:00 10/18/18 02:15 Seroquel FEEDTUBE 100 mg Q8H BLOSSOM Administration Scopolamine 1 each 10/16/18 11:00 10/16/18 13:19 Transderm-Scop TD 1 each Q72H BLOSSOM Administration Senna 17.2 mg 10/16/18 22:00 10/17/18 22:00 Senokot FEEDTUBE 17.2 mg HS BLOSSOM Administration Simple Syrup 15 ml 10/16/18 16:25 Simple Syrup FEEDTUBE PRN PRN Hypoglycemia Simple Syrup 30 ml 10/16/18 16:25 Simple Syrup FEEDTUBE PRN PRN Hypoglycemia Sodium Bicarbonate 325 mg 10/16/18 16:25 Sodium Bicarbonate FEEDTUBE PRN PRN For Clogged Feeding Tube Sodium Chloride 10 ml 10/15/18 10:00 10/18/18 10:37 Sodium Chloride Flush Syringe 10 Ml IV 10 ml BID BLOSSOM Administration Sodium Chloride 10 ml 10/15/18 03:28 Sodium Chloride Flush Syringe 10 Ml IV PRN PRN LINE FLUSH Nutrition/Malnutrition Assess - Dietary Evaluation Nutrition/Malnutrition Findings: Nutrition Notes Start: 10/16/18 16:06 Freq: Status: Active Protocol: Document 10/18/18 09:40 CP (Rec: 10/18/18 09:42 CP [id number]) Co-Sign 10/18/18 09:40 LP Nutrition Notes Initial or Follow up Brief Note Current Diagnosis COPD,Sepsis,Respiratory Failure,Stroke Other Pertinent Diagnosis HIV/AIDS, Pneu, PEG Current Diet Vital AF 1.2 @ 50 mL/hr Subjective/Other Information F/U for new TF and Na lab. TF infusing at goal rate during time of visit. No Na lab provided for today, but was 150 on 5/7/19. Nutrition Intervention Follow-Up By: 10/20/18 Additional Comments F/U: TF tolerance, Na lab
--- NOTE | 2018-10-18 15:55 | Ultrasound Report ---
ULTRASOUND RENAL INDICATION: DAMON. COMPARISON: None similar. FINDINGS: Renal sonography suggests mild increased renal cortical echogenicity. Grossly preserved contours. No hydronephrosis. RIGHT KIDNEY measures 11.4 x 6.6 x 5.7 cm with cortical thickness of 1.4 cm. LEFT KIDNEY estimated at 9.3 x 5 x 4.8 cm with cortical thickness of 1.5 cm. URINARY BLADDER suboptimally distended and assessed. Minimal adjacent free fluid in the pelvis suspected as on image 24. CONCLUSION: Mild underlying medical renal disease and minimal pelvic free fluid suspected sonographically without acute renal abnormality, as described. Please correlate. Thank you for the opportunity to participate in this patient's care.
[2018-10-18] MEDS: ceFAZolin 2 GM in NACL 0.9% 100 ML IV SCH (16:47)
--- NOTE | 2018-10-18 16:52 | Progress Note ---
Assessment and Plan - Patient Problems (1) Acute and chronic respiratory failure with hypoxia Current Visit: Yes Status: Acute Plan to address problem: On BiPAP. Management by pulmonary (2) HCAP (healthcare-associated pneumonia) Current Visit: Yes Status: Acute Plan to address problem: Continue antibiotics appropriately dosed to the degree of kidney function. Follow cultures (3) HIV (human immunodeficiency virus infection) Current Visit: Yes Status: Chronic Qualifiers: Plan to address problem: Continue antiretrovirals and fu with infectious disease (4) Altered mental status Current Visit: No Status: Acute Qualifiers: Altered mental status type: somnolence Qualified Code(s): R40.0 - Somnolence Plan to address problem: Mental status a bit better. Baseline not known to me (5) Hypernatremia Current Visit: Yes Status: Acute Plan to address problem: Significant free water deficit. Sodium improving with free water replacement. Subjective Date of service: 10/18/18 Principal diagnosis: Ac Hypoxemic Resp Failure; Pneumonia (HAP); Acute encephalopathy ; HIV/AIDS Interval history: Patient seen lying in bed. Nonverbal. Opens eyes to speech. Objective - Exam Narrative Exam: Frail, cachectic, middle-aged -[place] male in no acute distress HEENT: NCAT, pink oral mucous membrane Neck: Supple, no venous distention CVS: S1S2 RRR with no murmur, rub or gallop Chest: Low pitched rhonchi with scattered rales Abdomen: Protuberant, soft, nontender, no organomegaly, bowel sounds are present Extremities: No edema, muscle wasting Neuro: Reports are still speech, - Vital Signs Vital signs: Vital Signs - 12hr 10/18/18 10/18/18 10/18/18 04:51 05:00 05:11 Pulse Rate 114 H 113 H 113 H Pulse Rate [ Anterior Bilateral Throughout] Pulse Rate [ Bilateral] Pulse Rate [ From Monitor] Pulse Rate [ Right Dorsalis Pedis] Respiratory 23 23 24 Rate Respiratory Rate [Anterior Bilateral Throughout] Respiratory Rate [Bilateral ] Blood Pressure 94/52 91/53 91/53 O2 Sat by Pulse 96 93 94 Oximetry 10/18/18 10/18/18 10/18/18 05:21 05:30 05:41 Pulse Rate 112 H 112 H 111 H Pulse Rate [ Anterior Bilateral Throughout] Pulse Rate [ Bilateral] Pulse Rate [ From Monitor] Pulse Rate [ Right Dorsalis Pedis] Respiratory 19 24 23 Rate Respiratory Rate [Anterior Bilateral Throughout] Respiratory Rate [Bilateral ] Blood Pressure 97/46 101/54 101/54 O2 Sat by Pulse 94 92 94 Oximetry 10/18/18 10/18/18 10/18/18 05:51 06:00 06:11 Pulse Rate 112 H 112 H 113 H Pulse Rate [ Anterior Bilateral Throughout] Pulse Rate [ Bilateral] Pulse Rate [ From Monitor] Pulse Rate [ Right Dorsalis Pedis] Respiratory 25 H 24 22 Rate Respiratory Rate [Anterior Bilateral Throughout] Respiratory Rate [Bilateral ] Blood Pressure 88/55 108/61 108/61 O2 Sat by Pulse 93 93 94 Oximetry 10/18/18 10/18/18 10/18/18 06:21 06:30 06:41 Pulse Rate 112 H 112 H 113 H Pulse Rate [ Anterior Bilateral Throughout] Pulse Rate [ Bilateral] Pulse Rate [ From Monitor] Pulse Rate [ Right Dorsalis Pedis] Respiratory 25 H 23 21 Rate Respiratory Rate [Anterior Bilateral Throughout] Respiratory Rate [Bilateral ] Blood Pressure 108/60 108/60 108/60 O2 Sat by Pulse 94 94 95 Oximetry 10/18/18 10/18/18 10/18/18 06:51 07:00 07:11 Pulse Rate 114 H 111 H 111 H Pulse Rate [ Anterior Bilateral Throughout] Pulse Rate [ Bilateral] Pulse Rate [ From Monitor] Pulse Rate [ Right Dorsalis Pedis] Respiratory 15 14 25 H Rate Respiratory Rate [Anterior Bilateral Throughout] Respiratory Rate [Bilateral ] Blood Pressure 106/59 103/56 103/56 O2 Sat by Pulse 94 94 94 Oximetry 10/18/18 10/18/18 10/18/18 07:21 07:30 07:41 Pulse Rate 111 H 109 H 110 H Pulse Rate [ Anterior Bilateral Throughout] Pulse Rate [ Bilateral] Pulse Rate [ From Monitor] Pulse Rate [ Right Dorsalis Pedis] Respiratory 20 21 20 Rate Respiratory Rate [Anterior Bilateral Throughout] Respiratory Rate [Bilateral ] Blood Pressure 101/57 98/59 98/59 O2 Sat by Pulse 94 94 95 Oximetry 10/18/18 10/18/18 10/18/18 07:42 07:51 08:00 Pulse Rate 109 H 112 H Pulse Rate [ 110 H Anterior Bilateral Throughout] Pulse Rate [ 110 H Bilateral] Pulse Rate [ 106 H From Monitor] Pulse Rate [ 106 H Right Dorsalis Pedis] Respiratory 23 21 Rate Respiratory 22 Rate [Anterior Bilateral Throughout] Respiratory 21 Rate [Bilateral ] Blood Pressure 102/57 100/54 O2 Sat by Pulse 96 96 Oximetry 10/18/18 10/18/18 10/18/18 08:11 08:21 08:51 Pulse Rate 114 H 113 H Pulse Rate [ Anterior Bilateral Throughout] Pulse Rate [ Bilateral] Pulse Rate [ From Monitor] Pulse Rate [ Right Dorsalis Pedis] Respiratory 23 14 Rate Respiratory Rate [Anterior Bilateral Throughout] Respiratory Rate [Bilateral ] Blood Pressure 100/54 99/56 O2 Sat by Pulse 95 94 94 Oximetry 10/18/18 10/18/18 12:00 13:39 Pulse Rate Pulse Rate [ 103 H Anterior Bilateral Throughout] Pulse Rate [ 104 H Bilateral] Pulse Rate [ 106 H From Monitor] Pulse Rate [ 106 H Right Dorsalis Pedis] Respiratory 21 Rate Respiratory 16 Rate [Anterior Bilateral Throughout] Respiratory 16 Rate [Bilateral ] Blood Pressure O2 Sat by Pulse 96 Oximetry - Lab 10/18/18 00:50 10/17/18 14:41 Most recent lab results Calcium 8.0 mg/dL (8.4-10.2) L 10/17/18 14:41 Magnesium 1.60 mg/dL (1.7-2.3) L 10/17/18 14:41 36.3 mg/dL (0.1-20.0) H 10/17/18 19:45 46 mmol/L 10/17/18 19:45 49 mg/dL (5-11.8) H 10/17/18 19:45 Medications & Allergies - Medications Allergies/Adverse Reactions: Allergies No Known Allergies Allergy (Verified 08/27/18 10:38) Home Medications: Home Medications Medication Instructions Recorded Confirmed Last Taken Type Acetylcysteine 20% Oral [Mucomyst 3 ml INTRATRACH Q6H 03/28/18 03/28/18 Unknown History Oral] Aspirin [Aspirin TAB] 325 mg FEEDTUBE DAILY 03/28/18 03/28/18 Unknown History Atorvastatin Calcium [Lipitor] 20 mg FEEDTUBE HS 03/28/18 03/28/18 Unknown History Bisacodyl [Bisac-Evac] 10 mg RC DAILY PRN 03/28/18 03/28/18 Unknown History Cholecalciferol (Vitamin D3) 2,000 unit FEEDTUBE QAM 03/28/18 03/28/18 Unknown History [Vitamin D3] Docusate Sodium [Move It Along] 100 mg FEEDTUBE Q12H PRN 03/28/18 03/28/18 Unknown History Doxazosin Mesylate [Cardura] 1 mg FEEDTUBE HS 03/28/18 03/28/18 Unknown History Ergocalciferol [Vitamin D2] 1 cap FEEDTUBE QWEEK 03/28/18 03/28/18 Unknown History Gabapentin [Neurontin] 300 mg FEEDTUBE HS 03/28/18 03/28/18 Unknown History Haloperidol Decanoate [Haldol 50 mg IM Q4W 03/28/18 03/28/18 Unknown History Decanoate] Haloperidol Lactate [Haldol] 0.4 ml IM Q8H PRN 03/28/18 03/28/18 Unknown History Ipratropium/Albuterol Sulfate 1 ampul IH Q4HR 03/28/18 03/28/18 Unknown History [DUONEB *Not for PRN Use*] Polyethylene Glycol 3350 17 gm FEEDTUBE DAILY PRN 03/28/18 03/28/18 Unknown History [Smoothlax] Quetiapine Fumarate [Seroquel] 100 mg FEEDTUBE Q8H 03/28/18 03/28/18 Unknown History Scopolamine [Transderm-Scop] 1 each TD Q72H 03/28/18 03/28/18 Unknown History Sennosides [Senna Laxative] 17.2 mg FEEDTUBE HS 03/28/18 03/28/18 Unknown History lamiVUDine [Lamivudine] 30 ml FEEDTUBE QAM 03/28/18 03/28/18 Unknown History traMADol [Ultram 50 MG tab] 50 mg FEEDTUBE TID #10 tablet 03/31/18 Unknown Rx Bacitracin Zinc Oint [Antibiotic 1 applicatio TP BID #1 tube 08/22/18 Unknown Rx Oint] ALBUTEROL NEB's [Proventil 0.083% 2.5 mg IH Q4HRT PRN nebu 09/01/18 Unknown Rx NEBS] Amoxicillin/K Clav Tab [Augmentin 875 each PO Q12HR #14 tablet 09/01/18 Unknown Rx 875MG TAB] Darunavir [Prezista] 800 mg PO QDAY tablet 09/01/18 Unknown Rx FLUoxetine [Prozac] 40 mg PO QDAY oral.liqd 09/01/18 Unknown Rx Famotidine [Pepcid] 20 mg PO BID tablet 09/01/18 Unknown Rx Levothyroxine [Synthroid] 50 mcg PO DAILY@0600 tablet 09/01/18 Unknown Rx Metoprolol [Lopressor TAB] 12.5 mg PO BID tablet 09/01/18 Unknown Rx Ritonavir [Norvir] 100 mg PO DAILY tab 09/01/18 Unknown Rx Tenofovir [Viread] 300 mg PO QDAY tablet 09/01/18 Unknown Rx Active Medications: Generic Name Dose Route Start Last Admin Trade Name Freq PRN Reason Stop Dose Admin Acetaminophen 650 mg 10/15/18 03:28 Tylenol PO Q4H PRN Pain MILD(1-3)/Fever >100.5/DELGADO Albuterol 2.5 mg 10/16/18 10:30 Proventil IH Q4HRT PRN Shortness Of Breath Albuterol/Ipratropium 1 ampul 10/15/18 14:00 10/18/18 13:38 Duoneb *Not For Prn Use* IH 1 ampul Q6HRT BLOSSOM Administration Lipase/Protease/Amylase 1 each 10/16/18 16:[address] 10,500 Unit FEEDTUBE PRN PRN For Clogged Feeding Tube Aspirin 325 mg 10/17/18 10:00 10/18/18 10:37 Aspirin FEEDTUBE 325 mg DAILY BLOSSOM Administration Atorvastatin Calcium 20 mg 10/16/18 22:00 10/17/18 22:00 Lipitor FEEDTUBE 20 mg HS BLOSSOM Administration Bisacodyl 10 mg 10/16/18 10:30 Dulcolax [place] DAILY PRN Constipation Budesonide 0.5 mg 10/15/18 20:00 10/18/18 07:42 Pulmicort IH 0.5 mg Q12HRT BLOSSOM Administration Cholecalciferol 2,000 unit 10/17/18 10:00 10/18/18 10:39 Vitamin D3 FEEDTUBE 2,000 unit QAM BLOSSOM Administration Docusate Sodium 100 mg 10/16/18 10:30 Colace FEEDTUBE Q12H PRN Constipation Famotidine 20 mg 10/15/18 10:00 10/18/18 10:37 Pepcid IV 20 mg QAM BLOSSOM Administration Fluoxetine HCl 40 mg 10/17/18 10:00 10/18/18 10:36 Prozac PO 40 mg QDAY BLOSSOM Administration Norepinephrine 4 mg in 250 mls @ 7.5 mls/hr 10/15/18 13:00 10/18/18 04:45 Levophed Drip 4 Mg/Ns 250 Ml IV 4 mcg/min TITR BLOSSOM 15 mls/hr Administration Protocol 2 MCG/MIN Sodium Chloride 1,000 mls @ 75 mls/hr 10/17/18 16:00 10/18/18 08:45 Nacl 0.45% IV 10/21/18 05:19 75 mls/hr DIRECT BLOSSOM Administration Cefazolin Sodium 2 gm/ Sodium 100 mls @ 100 mls/hr 10/18/18 12:00 Chloride IV Q24HR BLOSSOM Levothyroxine Sodium 75 mcg 10/18/18 06:00 10/18/18 06:05 Synthroid PO 75 mcg DAILY@0600 BLOSSOM Administration Methylprednisolone Sodium Succinate 40 mg 10/16/18 14:00 10/18/18 06:10 Solu-Medrol IV 40 mg Q8HR BLOSSOM Administration Morphine Sulfate 2 mg 10/15/18 03:28 Morphine IV Q4H PRN Pain, Moderate (4-6) Ondansetron HCl 4 mg 10/15/18 03:28 Zofran IV Q8H PRN Nausea And Vomiting Polyethylene Glycol 17 gm 10/16/18 10:30 Miralax 3350 FEEDTUBE DAILY PRN Constipation Quetiapine Fumarate 100 mg 10/16/18 11:00 10/18/18 02:15 Seroquel FEEDTUBE 100 mg Q8H BLOSSOM Administration Scopolamine 1 each 10/16/18 11:00 10/16/18 13:19 Transderm-Scop TD 1 each Q72H BLOSSOM Administration Senna 17.2 mg 10/16/18 22:00 10/17/18 22:00 Senokot FEEDTUBE 17.2 mg HS BLOSSOM Administration Simple Syrup 15 ml 10/16/18 16:25 Simple Syrup FEEDTUBE PRN PRN Hypoglycemia Simple Syrup 30 ml 10/16/18 16:25 Simple Syrup FEEDTUBE PRN PRN Hypoglycemia Sodium Bicarbonate 325 mg 10/16/18 16:25 Sodium Bicarbonate FEEDTUBE PRN PRN For Clogged Feeding Tube Sodium Chloride 10 ml 10/15/18 10:00 10/18/18 10:37 Sodium Chloride Flush Syringe 10 Ml IV 10 ml BID BLSOSOM Administration Sodium Chloride 10 ml 10/15/18 03:28 Sodium Chloride Flush Syringe 10 Ml IV PRN PRN LINE FLUSH
[2018-10-18 17:01] LABS: Calcium 8.4 mg/dL (8.4-10.2)
[2018-10-18 19:47] LABS: HIV-1 RNA QN PCR <1.30 Log cps/mL; HIV-1 RNA QN PCR <20 Copies/mL
[2018-10-18 20:18] LABS: CD4/CD8 Ratio 0.84 (0.86-5.00)
[2018-10-18] MEDS: SENOKOT FEEDTUBE SCH (22:07)
[2018-10-19] MEDS: DUONEB *Not for PRN Use IH SCH ×4 (03:22→19:39)
[2018-10-19] MEDS: SOLU-Medrol IV SCH ×3 (06:00→21:36)
[2018-10-19] MEDS: SYNTHROID PO SCH (06:31)
--- NOTE | 2018-10-19 09:14 | Progress Note ---
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 Target blood glucose is 140-180 mg/dL -Continue free water flushes to treat hypernatremia -VTE prophylaxis -Continue Anti-infectives per ID , de-escalate based on culture - Monitor renal indices closely - Avoid nephrotoxic agents, adjust all medications for CrCL - Strict intake and output monitoring - Supportive transfusions as indicated - Maintenance of sleep -wake cycle - Mobility as tolerated by hemodynamics, for pressure ulcer prevention - Influenza and pneumonia vaccination per protocol -Supportive care -Place peripheral IV, discontinue central venous catheter - Goals of care need to be addressed with family or POA. 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 Date of service: 10/19/18 Principal diagnosis: Ac Hypoxemic Resp Failure; Pneumonia (HAP); Acute encep halopathy ; HIV/AIDS Interval history: Patient is seen today for: Acute Hypoxemic Respiratory Failure; Right midlung pneumonia (HAP); H/O Tracheostomy; COPD; Acute encephalopathy ; HIV/AIDS (viral load and CD4 unknown); H/o toxoplasmosis; H/o syphilitic encephalopathy Seen and examined at bedside; 24hour events reviewed; nursing and respiratory care staff consulted; no adverse overnight events reported to me; remains on supplemental oxygen; mental status changes persistent, no fevers, no vomiting, tolerating PEG tube feeding. Objective Vital Signs - 12hr 10/18/18 10/18/18 10/18/18 21:21 21:23 21:30 Temperature Pulse Rate 109 H 108 H Pulse Rate [ 107 H Anterior Bilateral Throughout] Pulse Rate [ From Monitor] Pulse Rate [ Right Dorsalis Pedis] Respiratory 18 17 Rate Respiratory 20 Rate [Anterior Bilateral Throughout] Blood Pressure 99/53 87/56 O2 Sat by Pulse 86 86 Oximetry 05/08/19 05/08/19 05/08/19 21:33 21:34 21:41 Temperature Pulse Rate 110 H Pulse Rate [ 108 H Anterior Bilateral Throughout] Pulse Rate [ From Monitor] Pulse Rate [ Right Dorsalis Pedis] Respiratory 18 Rate Respiratory 17 Rate [Anterior Bilateral Throughout] Blood Pressure 87/56 O2 Sat by Pulse 94 96 Oximetry 10/18/18 10/18/18 10/18/18 21:51 22:00 22:11 Temperature Pulse Rate 111 H 113 H 115 H Pulse Rate [ Anterior Bilateral Throughout] Pulse Rate [ From Monitor] Pulse Rate [ Right Dorsalis Pedis] Respiratory 19 19 19 Rate Respiratory Rate [Anterior Bilateral Throughout] Blood Pressure 81/57 97/56 97/56 O2 Sat by Pulse 93 93 94 Oximetry 10/18/18 10/18/18 10/18/18 22:21 22:30 22:41 Temperature Pulse Rate 115 H 116 H 116 H Pulse Rate [ Anterior Bilateral Throughout] Pulse Rate [ From Monitor] Pulse Rate [ Right Dorsalis Pedis] Respiratory 18 20 25 H Rate Respiratory Rate [Anterior Bilateral Throughout] Blood Pressure 99/55 95/56 95/56 O2 Sat by Pulse 94 93 94 Oximetry 10/18/18 10/18/18 10/18/18 22:51 23:00 23:11 Temperature Pulse Rate 119 H 117 H 119 H Pulse Rate [ Anterior Bilateral Throughout] Pulse Rate [ From Monitor] Pulse Rate [ Right Dorsalis Pedis] Respiratory 20 21 25 H Rate Respiratory Rate [Anterior Bilateral Throughout] Blood Pressure 96/57 98/55 98/55 O2 Sat by Pulse 93 91 92 Oximetry 10/18/18 10/18/18 10/18/18 23:21 23:25 23:30 Temperature Pulse Rate 120 H 119 H Pulse Rate [ Anterior Bilateral Throughout] Pulse Rate [ 100 H From Monitor] Pulse Rate [ 100 H Right Dorsalis Pedis] Respiratory 25 H 22 20 Rate Respiratory Rate [Anterior Bilateral Throughout] Blood Pressure 98/54 101/56 O2 Sat by Pulse 92 98 91 Oximetry 10/18/18 10/18/18 10/19/18 23:41 23:51 00:00 Temperature 98.8 F Pulse Rate 121 H 120 H 120 H Pulse Rate [ Anterior Bilateral Throughout] Pulse Rate [ From Monitor] Pulse Rate [ Right Dorsalis Pedis] Respiratory 23 26 H 24 Rate Respiratory Rate [Anterior Bilateral Throughout] Blood Pressure 101/56 102/56 98/54 O2 Sat by Pulse 92 92 90 Oximetry 10/19/18 10/19/18 10/19/18 00:11 00:21 00:30 Temperature Pulse Rate 120 H 120 H 120 H Pulse Rate [ Anterior Bilateral Throughout] Pulse Rate [ From Monitor] Pulse Rate [ Right Dorsalis Pedis] Respiratory 20 24 23 Rate Respiratory Rate [Anterior Bilateral Throughout] Blood Pressure 101/56 103/58 108/57 O2 Sat by Pulse 91 92 90 Oximetry 10/19/18 10/19/18 10/19/18 00:41 00:51 01:00 Temperature Pulse Rate 120 H 120 H 121 H Pulse Rate [ Anterior Bilateral Throughout] Pulse Rate [ From Monitor] Pulse Rate [ Right Dorsalis Pedis] Respiratory 20 24 23 Rate Respiratory Rate [Anterior Bilateral Throughout] Blood Pressure 98/54 103/57 105/60 O2 Sat by Pulse 92 92 91 Oximetry 10/19/18 10/19/18 10/19/18 01:11 01:21 01:30 Temperature Pulse Rate 120 H 118 H 119 H Pulse Rate [ Anterior Bilateral Throughout] Pulse Rate [ From Monitor] Pulse Rate [ Right Dorsalis Pedis] Respiratory 24 21 22 Rate Respiratory Rate [Anterior Bilateral Throughout] Blood Pressure 103/58 104/58 106/59 O2 Sat by Pulse 92 92 91 Oximetry 10/19/18 10/19/18 10/19/18 01:41 01:51 02:00 Temperature Pulse Rate 120 H 119 H 117 H Pulse Rate [ Anterior Bilateral Throughout] Pulse Rate [ From Monitor] Pulse Rate [ Right Dorsalis Pedis] Respiratory 20 20 21 Rate Respiratory Rate [Anterior Bilateral Throughout] Blood Pressure 105/60 109/61 102/59 O2 Sat by Pulse 92 91 90 Oximetry 10/19/18 10/19/18 10/19/18 02:11 02:21 02:30 Temperature Pulse Rate 118 H 118 H 119 H Pulse Rate [ Anterior Bilateral Throughout] Pulse Rate [ From Monitor] Pulse Rate [ Right Dorsalis Pedis] Respiratory 21 21 22 Rate Respiratory Rate [Anterior Bilateral Throughout] Blood Pressure 106/59 106/58 109/60 O2 Sat by Pulse 92 92 90 Oximetry 10/19/18 10/19/18 10/19/18 02:41 02:51 03:00 Temperature Pulse Rate 116 H 118 H 117 H Pulse Rate [ Anterior Bilateral Throughout] Pulse Rate [ From Monitor] Pulse Rate [ Right Dorsalis Pedis] Respiratory 22 24 23 Rate Respiratory Rate [Anterior Bilateral Throughout] Blood Pressure 109/60 101/61 102/61 O2 Sat by Pulse 91 91 90 Oximetry 10/19/18 10/19/18 10/19/18 03:11 03:21 03:30 Temperature Pulse Rate 118 H 115 H 112 H Pulse Rate [ Anterior Bilateral Throughout] Pulse Rate [ From Monitor] Pulse Rate [ Right Dorsalis Pedis] Respiratory 25 H 23 22 Rate Respiratory Rate [Anterior Bilateral Throughout] Blood Pressure 102/61 105/59 99/60 O2 Sat by Pulse 89 86 92 Oximetry 10/19/18 10/19/18 10/19/18 03:40 03:41 03:50 Temperature Pulse Rate 111 H Pulse Rate [ 118 H 126 H Anterior Bilateral Throughout] Pulse Rate [ From Monitor] Pulse Rate [ Right Dorsalis Pedis] Respiratory 20 Rate Respiratory 26 H 18 Rate [Anterior Bilateral Throughout] Blood Pressure 102/61 O2 Sat by Pulse 93 Oximetry 10/19/18 10/19/18 10/19/18 03:51 04:00 04:11 Temperature Pulse Rate 114 H 112 H 112 H Pulse Rate [ Anterior Bilateral Throughout] Pulse Rate [ 114 H From Monitor] Pulse Rate [ 114 H Right Dorsalis Pedis] Respiratory 18 20 19 Rate Respiratory Rate [Anterior Bilateral Throughout] Blood Pressure 102/59 99/56 99/56 O2 Sat by Pulse 91 93 93 Oximetry 10/19/18 10/19/18 10/19/18 04:21 04:30 04:40 Temperature Pulse Rate 113 H 114 H 113 H Pulse Rate [ Anterior Bilateral Throughout] Pulse Rate [ From Monitor] Pulse Rate [ Right Dorsalis Pedis] Respiratory 21 22 22 Rate Respiratory Rate [Anterior Bilateral Throughout] Blood Pressure 98/57 101/59 101/59 O2 Sat by Pulse 93 93 91 Oximetry 10/19/18 10/19/18 10/19/18 04:51 05:00 05:11 Temperature Pulse Rate 110 H 111 H 113 H Pulse Rate [ Anterior Bilateral Throughout] Pulse Rate [ From Monitor] Pulse Rate [ Right Dorsalis Pedis] Respiratory 17 17 22 Rate Respiratory Rate [Anterior Bilateral Throughout] Blood Pressure 107/58 103/58 101/59 O2 Sat by Pulse 92 92 93 Oximetry 10/19/18 10/19/18 10/19/18 05:21 05:30 05:41 Temperature Pulse Rate 112 H 111 H 113 H Pulse Rate [ Anterior Bilateral Throughout] Pulse Rate [ From Monitor] Pulse Rate [ Right Dorsalis Pedis] Respiratory 17 20 21 Rate Respiratory Rate [Anterior Bilateral Throughout] Blood Pressure 100/59 105/62 105/62 O2 Sat by Pulse 93 91 92 Oximetry 10/19/18 10/19/18 10/19/18 05:51 06:00 06:11 Temperature Pulse Rate 109 H 110 H 113 H Pulse Rate [ Anterior Bilateral Throughout] Pulse Rate [ From Monitor] Pulse Rate [ Right Dorsalis Pedis] Respiratory 18 22 23 Rate Respiratory Rate [Anterior Bilateral Throughout] Blood Pressure 100/65 101/61 101/61 O2 Sat by Pulse 92 93 93 Oximetry 10/19/18 10/19/18 10/19/18 06:21 06:30 07:42 Temperature 97.8 F Pulse Rate 118 H 115 H Pulse Rate [ Anterior Bilateral Throughout] Pulse Rate [ From Monitor] Pulse Rate [ Right Dorsalis Pedis] Respiratory 21 23 Rate Respiratory Rate [Anterior Bilateral Throughout] Blood Pressure 110/60 113/65 O2 Sat by Pulse 92 92 Oximetry Constitutional: appears uncomfortable, other (middle aged and chronically ill looking AAM with increased resp effort at rest) Eyes: non-icteric ENT: oropharynx moist, other (mallampati 2) Neck: supple, no lymphadenopathy, no JVD, other (no thyromegaly, LIJ CVC) Effort: mildly labored Ascultation: Bilateral: diminished breath sounds, rhonchi Percussion: Bilateral: not dull Cardiovascular: regular rate and rhythm, other (S1,S2) Gastrointestinal: normoactive bowel sounds, soft, non-tender, non-distended Integumentary: other (poor turgor) Extremities: no cyanosis, no edema, pulses normal, no ischemia or petechiae Neurologic: pupils equal and round, other (+ cognitive dysfunction) Psychiatric: other (flat ) CBC and BMP: 10/18/18 00:50 10/20/18 06:06 ABG, PT/INR, D-dimer: ABG POC ABG pH 7.347 (7.35-7.45) L 10/18/18 11:56 POC ABG pO2 72 (80-105) L 10/18/18 11:56 POC ABG HCO3 14.5 (22-26 mml/L) 10/18/18 11:56 POC ABG Total CO2 15 (23-27mmol/L) 10/18/18 11:56 POC ABG O2 Sat 94 10/18/18 11:56 Abnormal lab findings: Abnormal Labs 10/14/18 10/14/18 10/14/18 23:21 23:21 23:21 WBC RBC Hgb 10.2 L Hct 32.0 L MCH MCHC RDW 18.9 H Plt Count 100 L Seg Neuts % (Manual) 34.0 L Lymphocytes % (Manual) Monocytes % (Manual) Nucleated RBC % Seg Neutrophils # Man 1.7 L Abs Lymphs (Manual) Lymphocytes # (Manual) 0.8 L POC ABG pH POC ABG pCO2 POC ABG pO2 Sodium 156 H Potassium Chloride 117.8 H Carbon Dioxide 19 L BUN 124 H Creatinine 4.8 H Glucose POC Glucose Lactic Acid 4.90 H* Calcium Magnesium AST 72 H ALT Troponin T 0.034 H C-Reactive Protein Albumin 1.9 L LDL Cholesterol Direct 13 L HDL Cholesterol 28 L Free T4 Thyroxine (T4) Urine Creatinine Urine Chloride Urine Total Protein Lymph Enumerat CD4/CD8 Absolute CD3 Count % CD4 Cells Absolute CD4 Count Absolute CD8 Count Absolute CD19 Count HIV-1 RNA PCR copies/ml HIV-1 RNA (PCR) log 10/15/18 10/15/18 10/15/18 00:50 03:46 04:29 WBC RBC Hgb Hct MCH MCHC RDW Plt Count Seg Neuts % (Manual) Lymphocytes % (Manual) Monocytes % (Manual) Nucleated RBC % Seg Neutrophils # Man Abs Lymphs (Manual) Lymphocytes # (Manual) POC ABG pH POC ABG pCO2 POC ABG pO2 Sodium Potassium Chloride Carbon Dioxide BUN Creatinine Glucose POC Glucose Lactic Acid 3.30 H* 2.20 H* 2.20 H* Calcium Magnesium AST ALT Troponin T C-Reactive Protein Albumin LDL Cholesterol Direct HDL Cholesterol Free T4 Thyroxine (T4) Urine Creatinine Urine Chloride Urine Total Protein Lymph Enumerat CD4/CD8 Absolute CD3 Count % CD4 Cells Absolute CD4 Count Absolute CD8 Count Absolute CD19 Count HIV-1 RNA PCR copies/ml HIV-1 RNA (PCR) log 10/15/18 10/15/18 10/15/18 05:37 06:18 09:16 WBC RBC Hgb Hct MCH MCHC RDW Plt Count Seg Neuts % (Manual) Lymphocytes % (Manual) Monocytes % (Manual) Nucleated RBC % Seg Neutrophils # Man Abs Lymphs (Manual) Lymphocytes # (Manual) POC ABG pH POC ABG pCO2 POC ABG pO2 Sodium Potassium Chloride Carbon Dioxide BUN Creatinine Glucose POC Glucose Lactic Acid 2.30 H* 2.50 H* 3.10 H* Calcium Magnesium AST ALT Troponin T C-Reactive Protein Albumin LDL Cholesterol Direct HDL Cholesterol Free T4 Thyroxine (T4) Urine Creatinine Urine Chloride Urine Total Protein Lymph Enumerat CD4/CD8 Absolute CD3 Count % CD4 Cells Absolute CD4 Count Absolute CD8 Count Absolute CD19 Count HIV-1 RNA PCR copies/ml HIV-1 RNA (PCR) log 10/15/18 10/15/18 10/15/18 09:16 13:03 15:13 WBC RBC Hgb Hct MCH MCHC RDW Plt Count Seg Neuts % (Manual) Lymphocytes % (Manual) Monocytes % (Manual) Nucleated RBC % Seg Neutrophils # Man Abs Lymphs (Manual) Lymphocytes # (Manual) POC ABG pH 7.308 L POC ABG pCO2 33.1 L POC ABG pO2 70 L Sodium 158 H Potassium Chloride 121.1 H Carbon Dioxide 19 L BUN 120 H Creatinine 4.3 H Glucose 119 H POC Glucose Lactic Acid 2.70 H* Calcium 8.0 L Magnesium AST ALT Troponin T C-Reactive Protein Albumin LDL Cholesterol Direct HDL Cholesterol Free T4 Thyroxine (T4) Urine Creatinine Urine Chloride Urine Total Protein Lymph Enumerat CD4/CD8 Absolute CD3 Count % CD4 Cells Absolute CD4 Count Absolute CD8 Count Absolute CD19 Count HIV-1 RNA PCR copies/ml HIV-1 RNA (PCR) log 10/15/18 10/15/18 10/16/18 15:13 15:13 05:18 WBC 4.2 L RBC Hgb 10.8 L Hct 34.9 L MCH 27 L MCHC 31 L RDW 19.6 H Plt Count 38 L Seg Neuts % (Manual) 39.0 L Lymphocytes % (Manual) 9.0 L Monocytes % (Manual) 12.0 H Nucleated RBC % Seg Neutrophils # Man 1.6 L Abs Lymphs (Manual) 309 L Lymphocytes # (Manual) 0.4 L POC ABG pH POC ABG pCO2 POC ABG pO2 Sodium Potassium Chloride Carbon Dioxide BUN Creatinine Glucose POC Glucose Lactic Acid Calcium Magnesium AST ALT Troponin T C-Reactive Protein Albumin LDL Cholesterol Direct HDL Cholesterol Free T4 Thyroxine (T4) Urine Creatinine Urine Chloride Urine Total Protein Lymph Enumerat CD4/CD8 0.84 L Absolute CD3 Count 187 L % CD4 Cells 28 L Absolute CD4 Count 88 L Absolute CD8 Count 104 L Absolute CD19 Count 82 L HIV-1 RNA PCR copies/ml <20 H HIV-1 RNA (PCR) log <1.30 H 10/16/18 10/16/18 10/16/18 05:18 12:40 12:40 WBC RBC Hgb Hct MCH MCHC RDW Plt Count Seg Neuts % (Manual) Lymphocytes % (Manual) Monocytes % (Manual) Nucleated RBC % Seg Neutrophils # Man Abs Lymphs (Manual) Lymphocytes # (Manual) POC ABG pH POC ABG pCO2 POC ABG pO2 Sodium 161 H* Potassium 3.5 L Chloride 130.6 H Carbon Dioxide 18 L BUN 105 H Creatinine 3.4 H Glucose POC Glucose Lactic Acid Calcium Magnesium AST 522 H ALT 167 H Troponin T C-Reactive Protein Albumin 1.5 L LDL Cholesterol Direct HDL Cholesterol Free T4 0.38 L Thyroxine (T4) 1.8 L Urine Creatinine Urine Chloride Urine Total Protein Lymph Enumerat CD4/CD8 Absolute CD3 Count % CD4 Cells Absolute CD4 Count Absolute CD8 Count Absolute CD19 Count HIV-1 RNA PCR copies/ml HIV-1 RNA (PCR) log 10/16/18 10/16/18 10/17/18 15:19 23:43 00:17 WBC RBC Hgb Hct MCH MCHC RDW Plt Count Seg Neuts % (Manual) Lymphocytes % (Manual) Monocytes % (Manual) Nucleated RBC % Seg Neutrophils # Man Abs Lymphs (Manual) Lymphocytes # (Manual) POC ABG pH POC ABG pCO2 POC ABG pO2 62 L 63 L Sodium Potassium Chloride Carbon Dioxide BUN Creatinine Glucose POC Glucose 174 H Lactic Acid Calcium Magnesium AST ALT Troponin T C-Reactive Protein Albumin LDL Cholesterol Direct HDL Cholesterol Free T4 Thyroxine (T4) Urine Creatinine Urine Chloride Urine Total Protein Lymph Enumerat CD4/CD8 Absolute CD3 Count % CD4 Cells Absolute CD4 Count Absolute CD8 Count Absolute CD19 Count HIV-1 RNA PCR copies/ml HIV-1 RNA (PCR) log 10/17/18 10/17/18 10/17/18 06:55 11:57 14:41 WBC RBC Hgb Hct MCH MCHC RDW Plt Count Seg Neuts % (Manual) Lymphocytes % (Manual) Monocytes % (Manual) Nucleated RBC % Seg Neutrophils # Man Abs Lymphs (Manual) Lymphocytes # (Manual) POC ABG pH POC ABG pCO2 POC ABG pO2 Sodium 150 H D Potassium 3.3 L Chloride 122.3 H Carbon Dioxide 18 L BUN 91 H Creatinine 2.9 H Glucose 140 H POC Glucose 129 H 174 H Lactic Acid Calcium 8.0 L Magnesium 1.60 L AST ALT Troponin T C-Reactive Protein Albumin LDL Cholesterol Direct HDL Cholesterol Free T4 Thyroxine (T4) Urine Creatinine Urine Chloride Urine Total Protein Lymph Enumerat CD4/CD8 Absolute CD3 Count % CD4 Cells Absolute CD4 Count Absolute CD8 Count Absolute CD19 Count HIV-1 RNA PCR copies/ml HIV-1 RNA (PCR) log 10/17/18 10/17/18 10/17/18 14:41 18:56 19:45 WBC RBC Hgb Hct MCH MCHC RDW Plt Count Seg Neuts % (Manual) Lymphocytes % (Manual) Monocytes % (Manual) Nucleated RBC % Seg Neutrophils # Man Abs Lymphs (Manual) Lymphocytes # (Manual) POC ABG pH POC ABG pCO2 POC ABG pO2 Sodium Potassium Chloride Carbon Dioxide BUN Creatinine Glucose POC Glucose 125 H Lactic Acid Calcium Magnesium AST ALT Troponin T C-Reactive Protein 21.20 H Albumin LDL Cholesterol Direct HDL Cholesterol Free T4 Thyroxine (T4) Urine Creatinine 36.3 H Urine Chloride 39.3 L Urine Total Protein 49 H Lymph Enumerat CD4/CD8 Absolute CD3 Count % CD4 Cells Absolute CD4 Count Absolute CD8 Count Absolute CD19 Count HIV-1 RNA PCR copies/ml HIV-1 RNA (PCR) log 10/17/18 10/17/18 10/18/18 21:24 23:54 00:50 WBC RBC 3.23 L Hgb 8.9 L Hct 27.4 L D MCH MCHC RDW 19.6 H Plt Count 56 L Seg Neuts % (Manual) 81.0 H Lymphocytes % (Manual) 9.0 L Monocytes % (Manual) Nucleated RBC % 1.0 H Seg Neutrophils # Man 8.4 H Abs Lymphs (Manual) Lymphocytes # (Manual) 0.9 L POC ABG pH 7.328 L POC ABG pCO2 POC ABG pO2 66 L Sodium Potassium Chloride Carbon Dioxide BUN Creatinine Glucose POC Glucose 128 H Lactic Acid Calcium Magnesium AST ALT Troponin T C-Reactive Protein Albumin LDL Cholesterol Direct HDL Cholesterol Free T4 Thyroxine (T4) Urine Creatinine Urine Chloride Urine Total Protein Lymph Enumerat CD4/CD8 Absolute CD3 Count % CD4 Cells Absolute CD4 Count Absolute CD8 Count Absolute CD19 Count HIV-1 RNA PCR copies/ml HIV-1 RNA (PCR) log 10/18/18 10/18/18 10/18/18 05:55 11:56 16:41 WBC RBC Hgb Hct MCH MCHC RDW Plt Count Seg Neuts % (Manual) Lymphocytes % (Manual) Monocytes % (Manual) Nucleated RBC % Seg Neutrophils # Man Abs Lymphs (Manual) Lymphocytes # (Manual) POC ABG pH 7.347 L POC ABG pCO2 POC ABG pO2 72 L Sodium 151 H Potassium Chloride 122.8 H Carbon Dioxide 16 L BUN 91 H Creatinine 2.3 H Glucose 158 H POC Glucose 147 H Lactic Acid Calcium Magnesium AST ALT Troponin T C-Reactive Protein Albumin LDL Cholesterol Direct HDL Cholesterol Free T4 Thyroxine (T4) Urine Creatinine Urine Chloride Urine Total Protein Lymph Enumerat CD4/CD8 Absolute CD3 Count % CD4 Cells Absolute CD4 Count Absolute CD8 Count Absolute CD19 Count HIV-1 RNA PCR copies/ml HIV-1 RNA (PCR) log 10/18/18 10/19/18 10/19/18 23:18 05:02 05:51 WBC RBC Hgb Hct MCH MCHC RDW Plt Count Seg Neuts % (Manual) Lymphocytes % (Manual) Monocytes % (Manual) Nucleated RBC % Seg Neutrophils # Man Abs Lymphs (Manual) Lymphocytes # (Manual) POC ABG pH POC ABG pCO2 POC ABG pO2 Sodium 150 H Potassium Chloride 123.1 H Carbon Dioxide 16 L BUN 87 H Creatinine 2.2 H Glucose 116 H POC Glucose 148 H 123 H Lactic Acid Calcium 8.0 L Magnesium AST ALT Troponin T C-Reactive Protein Albumin LDL Cholesterol Direct HDL Cholesterol Free T4 Thyroxine (T4) Urine Creatinine Urine Chloride Urine Total Protein Lymph Enumerat CD4/CD8 Absolute CD3 Count % CD4 Cells Absolute CD4 Count Absolute CD8 Count Absolute CD19 Count HIV-1 RNA PCR copies/ml HIV-1 RNA (PCR) log Chest x-ray: image reviewed Allied health notes reviewed: nursing
[2018-10-19] MEDS: PULMICORT IH SCH ×2 (09:18→19:39)
[2018-10-19] MEDS: VITAMIN D3 FEEDTUBE SCH (10:08)
[2018-10-19] MEDS: PEPCID IV SCH (10:08)
[2018-10-19] MEDS: SODIUM CHLORIDE FLUSH SYRINGE 10 ML IV SCH ×2 (10:08→21:36)
[2018-10-19] MEDS: ASPIRIN FEEDTUBE SCH (10:08)
[2018-10-19] MEDS: PROzac PO SCH (10:09)
[2018-10-19] MEDS: TRANSDERM-SCOP TD SCH (10:10)
--- NOTE | 2018-10-19 10:37 | Progress Note ---
Assessment and Plan - Patient Problems (1) Acute renal failure Current Visit: Yes Status: Acute Plan to address problem: Likely pre-renal in etiology vs ATN. In the setting of proteinuria and microscopic hematuria, ordered serologic studies to include complement levels as well as ANCA studies to rule out a possible GN. UPC indicating ~1g proteinuria. Avoid nephrotoxins, maintain MAP >65mmHg. Will monitor renal function closely. Response noted with fluid hydration. (2) Hypernatremia Current Visit: Yes Status: Acute Plan to address problem: Continue to current management of free water replacement with FWF (300cc q4hrs) via G-tube along with IV repletion. Need to monitor serum sodium levels closely. Would recommend that if hypernatremia remains persistent, and also with hyperchloremic metabolic acidosis noted, to switch fluid to D5W at the same rate of 75 cc/hr. (3) Acute and chronic respiratory failure with hypoxia Current Visit: Yes Status: Acute Plan to address problem: Further management per pulmonology. (4) HCAP (healthcare-associated pneumonia) Current Visit: Yes Status: Acute Plan to address problem: Please ensure that antibiotics are dosed for his decreased renal function. (5) HIV (human immunodeficiency virus infection) Current Visit: Yes Status: Chronic Qualifiers: Plan to address problem: Management per recommendations from infectious diseases (6) Altered mental status Current Visit: No Status: Acute Qualifiers: Altered mental status type: somnolence Qualified Code(s): R40.0 - Somnolence Plan to address problem: Unclear if this is close to his baseline. Will continue to closely monitor. Subjective Date of service: 10/19/18 Principal diagnosis: Ac Hypoxemic Resp Failure; Pneumonia (HAP); Acute e ncephalopathy ; HIV/AIDS Interval history: Patient seen earlier this morning. No acute issues overnight. Labs noted, renal function stable, serum sodium levels are stable. Continues with IVF with D5 1/2 NS @75 cc/hr and FWF at 300 cc q4hrs. Objective - Vital Signs Vital signs: Vital Signs - 12hr 10/18/18 10/18/18 10/18/18 22:41 22:51 23:00 Temperature Pulse Rate 116 H 119 H 117 H Pulse Rate [ Anterior Bilateral Throughout] Pulse Rate [ From Monitor] Pulse Rate [ Right Dorsalis Pedis] Respiratory 25 H 20 21 Rate Respiratory Rate [Anterior Bilateral Throughout] Blood Pressure 95/56 96/57 98/55 O2 Sat by Pulse 94 93 91 Oximetry 10/18/18 10/18/18 10/18/18 23:11 23:21 23:25 Temperature Pulse Rate 119 H 120 H Pulse Rate [ Anterior Bilateral Throughout] Pulse Rate [ 100 H From Monitor] Pulse Rate [ 100 H Right Dorsalis Pedis] Respiratory 25 H 25 H 22 Rate Respiratory Rate [Anterior Bilateral Throughout] Blood Pressure 98/55 98/54 O2 Sat by Pulse 92 92 98 Oximetry 10/18/18 10/18/18 10/18/18 23:30 23:41 23:51 Temperature Pulse Rate 119 H 121 H 120 H Pulse Rate [ Anterior Bilateral Throughout] Pulse Rate [ From Monitor] Pulse Rate [ Right Dorsalis Pedis] Respiratory 20 23 26 H Rate Respiratory Rate [Anterior Bilateral Throughout] Blood Pressure 101/56 101/56 102/56 O2 Sat by Pulse 91 92 92 Oximetry 10/19/18 10/19/18 10/19/18 00:00 00:11 00:21 Temperature 98.8 F Pulse Rate 120 H 120 H 120 H Pulse Rate [ Anterior Bilateral Throughout] Pulse Rate [ From Monitor] Pulse Rate [ Right Dorsalis Pedis] Respiratory 24 20 24 Rate Respiratory Rate [Anterior Bilateral Throughout] Blood Pressure 98/54 101/56 103/58 O2 Sat by Pulse 90 91 92 Oximetry 10/19/18 10/19/18 10/19/18 00:30 00:41 00:51 Temperature Pulse Rate 120 H 120 H 120 H Pulse Rate [ Anterior Bilateral Throughout] Pulse Rate [ From Monitor] Pulse Rate [ Right Dorsalis Pedis] Respiratory 23 20 24 Rate Respiratory Rate [Anterior Bilateral Throughout] Blood Pressure 108/57 98/54 103/57 O2 Sat by Pulse 90 92 92 Oximetry 10/19/18 10/19/18 10/19/18 01:00 01:11 01:21 Temperature Pulse Rate 121 H 120 H 118 H Pulse Rate [ Anterior Bilateral Throughout] Pulse Rate [ From Monitor] Pulse Rate [ Right Dorsalis Pedis] Respiratory 23 24 21 Rate Respiratory Rate [Anterior Bilateral Throughout] Blood Pressure 105/60 103/58 104/58 O2 Sat by Pulse 91 92 92 Oximetry 10/19/18 10/19/18 10/19/18 01:30 01:41 01:51 Temperature Pulse Rate 119 H 120 H 119 H Pulse Rate [ Anterior Bilateral Throughout] Pulse Rate [ From Monitor] Pulse Rate [ Right Dorsalis Pedis] Respiratory 22 20 20 Rate Respiratory Rate [Anterior Bilateral Throughout] Blood Pressure 106/59 105/60 109/61 O2 Sat by Pulse 91 92 91 Oximetry 10/19/18 10/19/18 10/19/18 02:00 02:11 02:21 Temperature Pulse Rate 117 H 118 H 118 H Pulse Rate [ Anterior Bilateral Throughout] Pulse Rate [ From Monitor] Pulse Rate [ Right Dorsalis Pedis] Respiratory 21 21 21 Rate Respiratory Rate [Anterior Bilateral Throughout] Blood Pressure 102/59 106/59 106/58 O2 Sat by Pulse 90 92 92 Oximetry 10/19/18 10/19/18 10/19/18 02:30 02:41 02:51 Temperature Pulse Rate 119 H 116 H 118 H Pulse Rate [ Anterior Bilateral Throughout] Pulse Rate [ From Monitor] Pulse Rate [ Right Dorsalis Pedis] Respiratory 22 22 24 Rate Respiratory Rate [Anterior Bilateral Throughout] Blood Pressure 109/60 109/60 101/61 O2 Sat by Pulse 90 91 91 Oximetry 10/19/18 10/19/18 10/19/18 03:00 03:11 03:21 Temperature Pulse Rate 117 H 118 H 115 H Pulse Rate [ Anterior Bilateral Throughout] Pulse Rate [ From Monitor] Pulse Rate [ Right Dorsalis Pedis] Respiratory 23 25 H 23 Rate Respiratory Rate [Anterior Bilateral Throughout] Blood Pressure 102/61 102/61 105/59 O2 Sat by Pulse 90 89 86 Oximetry 10/19/18 10/19/18 10/19/18 03:30 03:40 03:41 Temperature Pulse Rate 112 H 111 H Pulse Rate [ 118 H Anterior Bilateral Throughout] Pulse Rate [ From Monitor] Pulse Rate [ Right Dorsalis Pedis] Respiratory 22 20 Rate Respiratory 26 H Rate [Anterior Bilateral Throughout] Blood Pressure 99/60 102/61 O2 Sat by Pulse 92 93 Oximetry 10/19/18 10/19/18 10/19/18 03:50 03:51 04:00 Temperature Pulse Rate 114 H 112 H Pulse Rate [ 126 H Anterior Bilateral Throughout] Pulse Rate [ 114 H From Monitor] Pulse Rate [ 114 H Right Dorsalis Pedis] Respiratory 18 20 Rate Respiratory 18 Rate [Anterior Bilateral Throughout] Blood Pressure 102/59 99/56 O2 Sat by Pulse 91 93 Oximetry 10/19/18 10/19/18 10/19/18 04:11 04:21 04:30 Temperature Pulse Rate 112 H 113 H 114 H Pulse Rate [ Anterior Bilateral Throughout] Pulse Rate [ From Monitor] Pulse Rate [ Right Dorsalis Pedis] Respiratory 19 21 22 Rate Respiratory Rate [Anterior Bilateral Throughout] Blood Pressure 99/56 98/57 101/59 O2 Sat by Pulse 93 93 93 Oximetry 10/19/18 10/19/18 10/19/18 04:40 04:51 05:00 Temperature Pulse Rate 113 H 110 H 111 H Pulse Rate [ Anterior Bilateral Throughout] Pulse Rate [ From Monitor] Pulse Rate [ Right Dorsalis Pedis] Respiratory 22 17 17 Rate Respiratory Rate [Anterior Bilateral Throughout] Blood Pressure 101/59 107/58 103/58 O2 Sat by Pulse 91 92 92 Oximetry 10/19/18 10/19/18 10/19/18 05:11 05:21 05:30 Temperature Pulse Rate 113 H 112 H 111 H Pulse Rate [ Anterior Bilateral Throughout] Pulse Rate [ From Monitor] Pulse Rate [ Right Dorsalis Pedis] Respiratory 22 17 20 Rate Respiratory Rate [Anterior Bilateral Throughout] Blood Pressure 101/59 100/59 105/62 O2 Sat by Pulse 93 93 91 Oximetry 10/19/18 10/19/18 10/19/18 05:41 05:51 06:00 Temperature Pulse Rate 113 H 109 H 110 H Pulse Rate [ Anterior Bilateral Throughout] Pulse Rate [ From Monitor] Pulse Rate [ Right Dorsalis Pedis] Respiratory 21 18 22 Rate Respiratory Rate [Anterior Bilateral Throughout] Blood Pressure 105/62 100/65 101/61 O2 Sat by Pulse 92 92 93 Oximetry 10/19/18 10/19/18 10/19/18 06:11 06:21 06:30 Temperature Pulse Rate 113 H 118 H 115 H Pulse Rate [ Anterior Bilateral Throughout] Pulse Rate [ From Monitor] Pulse Rate [ Right Dorsalis Pedis] Respiratory 23 21 23 Rate Respiratory Rate [Anterior Bilateral Throughout] Blood Pressure 101/61 110/60 113/65 O2 Sat by Pulse 93 92 92 Oximetry 10/19/18 10/19/18 10/19/18 06:41 06:51 07:00 Temperature Pulse Rate 112 H 113 H 112 H Pulse Rate [ Anterior Bilateral Throughout] Pulse Rate [ From Monitor] Pulse Rate [ Right Dorsalis Pedis] Respiratory 20 20 22 Rate Respiratory Rate [Anterior Bilateral Throughout] Blood Pressure 113/65 107/63 113/61 O2 Sat by Pulse 91 92 91 Oximetry 10/19/18 10/19/18 10/19/18 07:11 07:21 07:30 Temperature Pulse Rate 113 H 112 H 114 H Pulse Rate [ Anterior Bilateral Throughout] Pulse Rate [ From Monitor] Pulse Rate [ Right Dorsalis Pedis] Respiratory 19 22 20 Rate Respiratory Rate [Anterior Bilateral Throughout] Blood Pressure 113/61 104/65 110/65 O2 Sat by Pulse 92 92 93 Oximetry 10/19/18 10/19/18 10/19/18 07:41 07:42 07:51 Temperature 97.8 F Pulse Rate 111 H 111 H Pulse Rate [ Anterior Bilateral Throughout] Pulse Rate [ From Monitor] Pulse Rate [ Right Dorsalis Pedis] Respiratory 21 22 Rate Respiratory Rate [Anterior Bilateral Throughout] Blood Pressure 110/65 107/64 O2 Sat by Pulse 92 92 Oximetry 10/19/18 10/19/18 10/19/18 08:00 08:11 08:21 Temperature Pulse Rate 111 H 113 H 112 H Pulse Rate [ Anterior Bilateral Throughout] Pulse Rate [ 111 H From Monitor] Pulse Rate [ Right Dorsalis Pedis] Respiratory 18 20 19 Rate Respiratory Rate [Anterior Bilateral Throughout] Blood Pressure 112/62 112/62 114/62 O2 Sat by Pulse 91 93 93 Oximetry 10/19/18 10/19/18 10/19/18 08:30 08:41 08:51 Temperature Pulse Rate 113 H 113 H 111 H Pulse Rate [ Anterior Bilateral Throughout] Pulse Rate [ From Monitor] Pulse Rate [ Right Dorsalis Pedis] Respiratory 19 20 20 Rate Respiratory Rate [Anterior Bilateral Throughout] Blood Pressure 110/61 110/61 110/64 O2 Sat by Pulse 92 93 94 Oximetry 10/19/18 10/19/18 09:00 09:11 Temperature Pulse Rate 110 H 113 H Pulse Rate [ Anterior Bilateral Throughout] Pulse Rate [ From Monitor] Pulse Rate [ Right Dorsalis Pedis] Respiratory 21 21 Rate Respiratory Rate [Anterior Bilateral Throughout] Blood Pressure 113/65 113/65 O2 Sat by Pulse 92 94 Oximetry - General Appearance General appearance: cachectic, chronically ill, frail EENT: ATNC, PERRL Neck: no JVD, no thyromegaly Respiratory: Present: Wheezes Cardiology: regular, S1S2 Gastrointestinal: normal Integumentary: no rash, warm and dry Neurologic: other (responds to verbal stimuli, but is non veral otherwise. ) Musculoskeletal: other (-edema) - Lab 10/18/18 00:50 10/19/18 05:02 Most recent lab results Calcium 8.0 mg/dL (8.4-10.2) L 10/19/18 05:02 Phosphorus 3.40 mg/dL (2.5-4.5) 10/18/18 16:41 Magnesium 2.10 mg/dL (1.7-2.3) 10/19/18 05:02 36.3 mg/dL (0.1-20.0) H 10/17/18 19:45 46 mmol/L 10/17/18 19:45 49 mg/dL (5-11.8) H 10/17/18 19:45 - Allied health notes Allied health notes reviewed: nursing Medications & Allergies - Medications Allergies/Adverse Reactions: Allergies No Known Allergies Allergy (Verified 08/27/18 10:38) Home Medications: Home Medications Medication Instructions Recorded Confirmed Last Taken Type Acetylcysteine 20% Oral [Mucomyst 3 ml INTRATRACH Q6H 03/28/18 03/28/18 Unknown History Oral] Aspirin [Aspirin TAB] 325 mg FEEDTUBE DAILY 03/28/18 03/28/18 Unknown History Atorvastatin Calcium [Lipitor] 20 mg FEEDTUBE HS 03/28/18 03/28/18 Unknown History Bisacodyl [Bisac-Evac] 10 mg RC DAILY PRN 03/28/18 03/28/18 Unknown History Cholecalciferol (Vitamin D3) 2,000 unit FEEDTUBE QAM 03/28/18 03/28/18 Unknown History [Vitamin D3] Docusate Sodium [Move It Along] 100 mg FEEDTUBE Q12H PRN 03/28/18 03/28/18 Unknown History Doxazosin Mesylate [Cardura] 1 mg FEEDTUBE HS 03/28/18 03/28/18 Unknown History Ergocalciferol [Vitamin D2] 1 cap FEEDTUBE QWEEK 03/28/18 03/28/18 Unknown History Gabapentin [Neurontin] 300 mg FEEDTUBE HS 03/28/18 03/28/18 Unknown History Haloperidol Decanoate [Haldol 50 mg IM Q4W 03/28/18 03/28/18 Unknown History Decanoate] Haloperidol Lactate [Haldol] 0.4 ml IM Q8H PRN 03/28/18 03/28/18 Unknown History Ipratropium/Albuterol Sulfate 1 ampul IH Q4HR 03/28/18 03/28/18 Unknown History [DUONEB *Not for PRN Use*] Polyethylene Glycol 3350 17 gm FEEDTUBE DAILY PRN 03/28/18 03/28/18 Unknown History [Smoothlax] Quetiapine Fumarate [Seroquel] 100 mg FEEDTUBE Q8H 03/28/18 03/28/18 Unknown History Scopolamine [Transderm-Scop] 1 each TD Q72H 03/28/18 03/28/18 Unknown History Sennosides [Senna Laxative] 17.2 mg FEEDTUBE HS 03/28/18 03/28/18 Unknown History lamiVUDine [Lamivudine] 30 ml FEEDTUBE QAM 03/28/18 03/28/18 Unknown History traMADol [Ultram 50 MG tab] 50 mg FEEDTUBE TID #10 tablet 03/31/18 Unknown Rx Bacitracin Zinc Oint [Antibiotic 1 applicatio TP BID #1 tube 08/22/18 Unknown Rx Oint] ALBUTEROL NEB's [Proventil 0.083% 2.5 mg IH Q4HRT PRN nebu 09/01/18 Unknown Rx NEBS] Amoxicillin/K Clav Tab [Augmentin 875 each PO Q12HR #14 tablet 09/01/18 Unknown Rx 875MG TAB] Darunavir [Prezista] 800 mg PO QDAY tablet 09/01/18 Unknown Rx FLUoxetine [Prozac] 40 mg PO QDAY oral.liqd 09/01/18 Unknown Rx Famotidine [Pepcid] 20 mg PO BID tablet 09/01/18 Unknown Rx Levothyroxine [Synthroid] 50 mcg PO DAILY@0600 tablet 09/01/18 Unknown Rx Metoprolol [Lopressor TAB] 12.5 mg PO BID tablet 09/01/18 Unknown Rx Ritonavir [Norvir] 100 mg PO DAILY tab 09/01/18 Unknown Rx Tenofovir [Viread] 300 mg PO QDAY tablet 09/01/18 Unknown Rx Active Medications: Generic Name Dose Route Start Last Admin Trade Name Freq PRN Reason Stop Dose Admin Acetaminophen 650 mg 10/15/18 03:28 Tylenol PO Q4H PRN Pain MILD(1-3)/Fever >100.5/DELGADO Albuterol 2.5 mg 10/16/18 10:30 Proventil IH Q4HRT PRN Shortness Of Breath Albuterol/Ipratropium 1 ampul 10/15/18 14:00 10/19/18 09:18 Duoneb *Not For Prn Use* IH 1 ampul Q6HRT BLOSSOM Administration Lipase/Protease/Amylase 1 each 10/16/18 16:[address] 10,500 Unit FEEDTUBE PRN PRN For Clogged Feeding Tube Aspirin 325 mg 10/17/18 10:00 10/19/18 10:08 Aspirin FEEDTUBE 325 mg DAILY BLOSSOM Administration Atorvastatin Calcium 20 mg 10/16/18 22:00 10/18/18 22:07 Lipitor FEEDTUBE 20 mg HS BLOSSOM Administration Bisacodyl 10 mg 10/16/18 10:30 Dulcolax ME DAILY PRN Constipation Budesonide 0.5 mg 10/15/18 20:00 10/19/18 09:18 Pulmicort IH 0.5 mg Q12HRT BLOSSOM Administration Cholecalciferol 2,000 unit 10/17/18 10:00 10/19/18 10:08 Vitamin D3 FEEDTUBE 2,000 unit QAM BLOSSOM Administration Docusate Sodium 100 mg 10/16/18 10:30 Colace FEEDTUBE Q12H PRN Constipation Famotidine 20 mg 10/15/18 10:00 10/19/18 10:08 Pepcid IV 20 mg QAM BLOSSOM Administration Fluoxetine HCl 40 mg 10/17/18 10:00 10/19/18 10:09 Prozac PO 40 mg QDAY BLOSSOM Administration Norepinephrine 4 mg in 250 mls @ 7.5 mls/hr 10/15/18 13:00 10/18/18 04:45 Levophed Drip 4 Mg/Ns 250 Ml IV 4 mcg/min TITR BLOSSOM 15 mls/hr Administration Protocol 2 MCG/MIN Cefazolin Sodium 2 gm/ Sodium 100 mls @ 100 mls/hr 10/18/18 12:00 10/18/18 16:47 Chloride IV 100 mls/hr Q24HR BLOSSOM Administration Sodium Chloride 1,000 mls @ 100 mls/hr 10/18/18 22:00 Nacl 0.45% 1000 Ml IV DIRECT BLOSSOM Levothyroxine Sodium 75 mcg 10/18/18 06:00 10/19/18 06:31 Synthroid PO 75 mcg DAILY@0600 BLOSSOM Administration Methylprednisolone Sodium Succinate 40 mg 10/16/18 14:00 10/19/18 06:00 Solu-Medrol IV 40 mg Q8HR BLOSSOM Administration Morphine Sulfate 2 mg 10/15/18 03:28 Morphine IV Q4H PRN Pain, Moderate (4-6) Ondansetron HCl 4 mg 10/15/18 03:28 Zofran IV Q8H PRN Nausea And Vomiting Polyethylene Glycol 17 gm 10/16/18 10:30 Miralax 3350 FEEDTUBE DAILY PRN Constipation Quetiapine Fumarate 100 mg 10/16/18 11:00 10/19/18 10:11 Seroquel FEEDTUBE Not Given Q8H BLOSSOM Scopolamine 1 each 10/16/18 11:00 10/19/18 10:10 Transderm-Scop TD 1 each Q72H BLOSSOM Administration Senna 17.2 mg 10/16/18 22:00 10/18/18 22:07 Senokot FEEDTUBE 17.2 mg HS BLOSSOM Administration Simple Syrup 15 ml 10/16/18 16:25 Simple Syrup FEEDTUBE PRN PRN Hypoglycemia Simple Syrup 30 ml 10/16/18 16:25 Simple Syrup FEEDTUBE PRN PRN Hypoglycemia Sodium Bicarbonate 325 mg 10/16/18 16:25 Sodium Bicarbonate FEEDTUBE PRN PRN For Clogged Feeding Tube Sodium Chloride 10 ml 10/15/18 10:00 10/19/18 10:08 Sodium Chloride Flush Syringe 10 Ml IV 10 ml BID BLOSSOM Administration Sodium Chloride 10 ml 10/15/18 03:28 Sodium Chloride Flush Syringe 10 Ml IV PRN PRN LINE FLUSH
[2018-10-19] MEDS: ceFAZolin 2 GM in NACL 0.9% 100 ML IV SCH (11:23)
--- NOTE | 2018-10-19 11:47 | Progress Note ---
Assessment and Plan Cultures: Blood culture 10/14/2018 Staph Aureus, 2 out of 4 bottles, maguire suceptibile Blood culture 10/16/2018:no growth to date Urine culture 10/14/2018 negative Assessment: 58-year-old male with history of HIV AIDS, cachexia, toxoplasmosis, CVA with residual weakness, status post tracheostomy reversal for previous respiratory failure, syphilitic encephalitis, traumatic brain injury, cocaine and tobacco abuse, care home resident at [place]; readmitted on 10/14/2018 due to AMS/lethargic and worsening shortness of breath for 34 hours. Patient is not able to provide a history, currently non verbal in mild respiratory distress. 1) Sepsis: Improved. off pressors. Etiology most likely pneumonia +/- GPC bacteremia 2) Pneumonia: possible aspiration pneumonia vs HAP. CXR showed probably COPD and right sided pneumonia. 3) Staph Aureus Bacteremia:. Blood culture 10/14/2018 showed Staph aureaus 2 out of 4 bottles.. Source unclear. TTE shows no vegetation. Repeat blood cultures show no growth to date. 4) Recent bilateral pneumonia, R>L causing acute respiratory failure, it was felt probably HCAP vs aspiration treated with cefepime and flagyl IV then changed to augmentin suspension 875mg PO BID for total 7 days. admission 08/27- 09/01/2018 5) HIV / AIDS: last viral load in March 2018 was undetectable and CD4 count w as more than 700 on tenofovir, lamivudine, ritonavir boosted darunavir, current VL less than 20. CD4=88. HIV medications restarted. 6) Acute on Chronic respiratory failure 7) Acute on chronic encephalopathy 8) Cachexia 9) DAMON: antibiotic renally dosed. Will contact pharmacy to restart ART therapy renally dosed Recommendations: - follow-up repeat blood culture - follow-up sputum culture - follow-up stool cultures and C diff - continue cefazolin 2gms IV every 24 hours, D2 - start Mepron 750 bid [facility] M: [phone] O:[phone] Subjective Date of service: 10/19/18 Principal diagnosis: Ac Hypoxemic Resp Failure; Pneumonia (HAP); Acute encephalopathy ; HIV/AIDS Interval history: Patient seen and examined. On venti mask. Does not follow commands. no fevers. Objective - Exam Narrative Exam: General appearance: somnolent in mild resp distress on venti mask Eyes: anicteric sclerae, moist conjunctivae; no lid-lag; PERRLA HENT: Atraumatic; oropharynx limited Neck: Trachea midline; supple, no thyromegaly or lymphadenopathy Lungs: king rhonchi, On venti mask CV: tachycardia Abdomen: Soft, non-tender; +PEG +diarrhea Extremities: No peripheral edema or extremity lymphadenopathy Skin: diffuse skin desquamation Psych: no agitated. Neuro: somnolent non verbal - Constitutional Vitals: Vital Signs Temp Pulse Resp BP Pulse Ox 97.7 F 111 H 17 112/70 93 10/19/18 11:29 10/19/18 11:00 10/19/18 11:00 10/19/18 11:00 10/19/18 11:00 Temperature -Last 24 Hours Temperature 97.7 F Temperature 96.8 F Temperature 97.8 F Temperature 98.8 F Temperature 95.1 F Temperature 95.5 F Temperature 97.4 F - Labs CBC & Chem 7: 10/18/18 00:50 10/19/18 05:02 Labs: Abnormal lab results 10/15/18 10/15/18 10/18/18 Range/Units 15:13 15:13 11:56 Abs Lymphs (Manual) 309 L (850-3900) cells/uL POC ABG pH 7.347 L (7.35-7.45) POC ABG pO2 72 L (80-105) Sodium (137-145) mmol/L Chloride (98-107) mmol/L Carbon Dioxide (22-30) mmol/L BUN (9-20) mg/dL Creatinine (0.8-1.5) mg/dL Glucose (75-100) mg/dL POC Glucose (70-105) Calcium (8.4-10.2) mg/dL Lymph Enumerat CD4/CD8 0.84 L (0.86-5.00) Absolute CD3 Count 187 L (840-3060) cells/uL % CD4 Cells 28 L (30-61) % Absolute CD4 Count 88 L (490-1740) cells/uL Absolute CD8 Count 104 L (180-1170) cells/uL Absolute CD19 Count 82 L (110-660) cells/uL HIV-1 RNA PCR copies/ml <20 H Copies/mL HIV-1 RNA (PCR) log <1.30 H Log cps/mL 10/18/18 10/18/18 10/19/18 Range/Units 16:41 23:18 05:02 Abs Lymphs (Manual) (850-3900) cells/uL POC ABG pH (7.35-7.45) POC ABG pO2 (80-105) Sodium 151 H 150 H (137-145) mmol/L Chloride 122.8 H 123.1 H (98-107) mmol/L Carbon Dioxide 16 L 16 L (22-30) mmol/L BUN 91 H 87 H (9-20) mg/dL Creatinine 2.3 H 2.2 H (0.8-1.5) mg/dL Glucose 158 H 116 H (75-100) mg/dL POC Glucose 148 H (70-105) Calcium 8.0 L (8.4-10.2) mg/dL Lymph Enumerat CD4/CD8 (0.86-5.00) Absolute CD3 Count (840-3060) cells/uL % CD4 Cells (30-61) % Absolute CD4 Count (490-1740) cells/uL Absolute CD8 Count (180-1170) cells/uL Absolute CD19 Count (110-660) cells/uL HIV-1 RNA PCR copies/ml Copies/mL HIV-1 RNA (PCR) log Log cps/mL 10/19/18 10/19/18 Range/Units 05:51 11:03 Abs Lymphs (Manual) (850-3900) cells/uL POC ABG pH (7.35-7.45) POC ABG pO2 (80-105) Sodium (137-145) mmol/L Chloride (98-107) mmol/L Carbon Dioxide (22-30) mmol/L BUN (9-20) mg/dL Creatinine (0.8-1.5) mg/dL Glucose (75-100) mg/dL POC Glucose 123 H 171 H (70-105) Calcium (8.4-10.2) mg/dL Lymph Enumerat CD4/CD8 (0.86-5.00) Absolute CD3 Count (840-3060) cells/uL % CD4 Cells (30-61) % Absolute CD4 Count (490-1740) cells/uL Absolute CD8 Count (180-1170) cells/uL Absolute CD19 Count (110-660) cells/uL HIV-1 RNA PCR copies/ml Copies/mL HIV-1 RNA (PCR) log Log cps/mL
[2018-10-19] MEDS ORDERED: D5W 1,000 ML IV SCH (12:00)
[2018-10-19] MEDS ORDERED: EPIVIR PO ONE (13:00)
[2018-10-19] MEDS ORDERED: VIREAD PO SCH (13:00)
[2018-10-19] MEDS: PREZISTA PO SCH (14:00)
[2018-10-19] MEDS: NORVIR PO SCH (14:00)
--- NOTE | 2018-10-19 15:51 | Progress Note ---
Assessment and Plan Assessment and plan: 58 year old man with history of HIV, toxoplasmosis, severe the reservoir deficits, syphilitic encephalopathy, history of polysubstance abuse including cocaine. He status post trach and tree traversal, has a g-tube still intact. The patient was brought from [facility] for respiratory distress and altered mental status Sepsis secondary to pneumonia, septic shock - ID is following him - Patient is on Mepron and cefazolin Acute kidney injury due to vasomotor nephropathy and ATN - IV fluids, nephrology Hypernatremia - Hypotonic IV fluid, free water via g-tube Acute hypoxic respiratory failure - Continue oxygen via venti mask and BiPAP as tolerated Hypothyroidism - thyroid function tests show low T4 and low free T4, increase synthroid dose HIV-AIDS - Patient is to restart add at the per ID DVT prophylaxis with heparin subcutaneously History Interval history: Patient was seen and evaluated this morning. No nursing issues reported overni t. Hospitalist Physical - Physical exam Narrative exam: Not in cardiopulmonary distress. The patient is cachectic. Vital signs as documented. Head exam is unremarkable. No scleral icterus . Neck is without jugular venous distension, thyromegaly, or carotid bruits. Lungs are clear to auscultation. Cardiac exam reveals regular rate and Rhythm. Abdominal exam reveals normal bowel sounds, no masses, no organomegaly and no aortic enlargement. Extremities are nonedematous and both femoral and pedal pulses are normal. CAMPAIGN SPECIALIST: patient is non verbal - Constitutional Vitals: Temp Pulse Resp BP Pulse Ox 97.7 F 115 H 20 111/65 95 10/19/18 11:29 10/19/18 15:11 10/19/18 15:11 10/19/18 15:11 10/19/18 15:11 General appearance: Present: severe distress, cachectic Results - Labs CBC & Chem 7: 10/18/18 00:50 10/19/18 05:02 Labs: Laboratory Last Values WBC 10.4 K/mm3 (4.5-11.0) 10/18/18 00:50 RBC 3.23 M/mm3 (3.65-5.03) L 10/18/18 00:50 Hgb 8.9 gm/dl (11.8-15.2) L 10/18/18 00:50 Hct 27.4 % (35.5-45.6) L D 10/18/18 00:50 MCV 85 fl (84-94) 10/18/18 00:50 MCH 28 pg (28-32) 10/18/18 00:50 MCHC 32 % (32-34) 10/18/18 00:50 RDW 19.6 % (13.2-15.2) H 10/18/18 00:50 Plt Count 56 K/mm3 (140-440) L 10/18/18 00:50 Lymph % (Auto) Control Chemist 10/14/18 23:21 [place] % (Auto) Control Chemist 10/14/18 23:21 Eos % (Auto) Control Chemist 10/14/18 23:21 Baso % (Auto) Control Chemist 10/14/18 23:21 Lymph # Control Chemist 10/14/18 23:21 [place] # Control Chemist 10/14/18 23:21 Eos # Control Chemist 10/14/18 23:21 Baso # Control Chemist 10/14/18 23:21 Add Manual Diff Complete 10/18/18 00:50 Total Counted 100 10/18/18 00:50 Seg Neutrophils % Control Chemist 10/18/18 00:50 Seg Neuts % (Manual) 81.0 % (40.0-70.0) H 10/18/18 00:50 7.0 % 10/18/18 00:50 9.0 % (13.4-35.0) L 10/18/18 00:50 Reactive Lymphs % (Man) 0 % 10/18/18 00:50 3.0 % (0.0-7.3) 10/18/18 00:50 0 % (0.0-4.3) 10/18/18 00:50 0 % (0.0-1.8) 10/18/18 00:50 0 % 10/18/18 00:50 0 % 10/18/18 00:50 0 % 10/18/18 00:50 0 % 10/18/18 00:50 Nucleated RBC % 1.0 % (0.0-0.9) H 10/18/18 00:50 Seg Neutrophils # Control Chemist 10/14/18 23:21 Seg Neutrophils # Man 8.4 K/mm3 (1.8-7.7) H 10/18/18 00:50 Band Neutrophils # 0.7 K/mm3 10/18/18 00:50 Abs Lymphs (Manual) 309 cells/uL (850-3900) L 10/15/18 15:13 0.9 K/mm3 (1.2-5.4) L 10/18/18 00:50 Abs React Lymphs (Man) 0.0 K/mm3 10/18/18 00:50 0.3 K/mm3 (0.0-0.8) 10/18/18 00:50 0.0 K/mm3 (0.0-0.4) 10/18/18 00:50 0.0 K/mm3 (0.0-0.1) 10/18/18 00:50 0.0 K/mm3 10/18/18 00:50 0.0 K/mm3 10/18/18 00:50 0.0 K/mm3 10/18/18 00:50 Blast Cells # 0.0 K/mm3 10/18/18 00:50 WBC Morphology Not Reportable 10/18/18 00:50 WBC Morphology TNR 10/18/18 00:50 Hypersegmented Neuts Not Reportable 10/18/18 00:50 Hyposegmented Neuts Not Reportable 10/18/18 00:50 Hypogranular Neuts Not Reportable 10/18/18 00:50 Not Reportable 10/18/18 00:50 Not Reportable 10/18/18 00:50 Not Reportable 10/18/18 00:50 Not Reportable 10/18/18 00:50 Not Reportable 10/18/18 00:50 Not Reportable 10/18/18 00:50 Appears decreased 10/18/18 00:50 Not Reportable 10/18/18 00:50 Plt Clumps, EDTA Not Reportable 10/18/18 00:50 Not Reportable 10/18/18 00:50 Not Reportable 10/18/18 00:50 Not Reportable 10/18/18 00:50 Plt Morphology Comment Not Reportable 10/18/18 00:50 RBC Morphology Not Reportable 10/18/18 00:50 Dimorphic RBCs Not Reportable 10/18/18 00:50 Not Reportable 10/18/18 00:50 Not Reportable 10/18/18 00:50 Not Reportable 10/18/18 00:50 1+ 10/18/18 00:50 Not Reportable 10/18/18 00:50 Not Reportable 10/18/18 00:50 Not Reportable 10/18/18 00:50 Not Reportable 10/18/18 00:50 Not Reportable 10/18/18 00:50 Few 10/18/18 00:50 Not Reportable 10/18/18 00:50 Not Reportable 10/18/18 00:50 Not Reportable 10/18/18 00:50 Not Reportable 10/18/18 00:50 Not Reportable 10/18/18 00:50 Not Reportable 10/18/18 00:50 Not Reportable 10/18/18 00:50 1+ 10/18/18 00:50 Not Reportable 10/18/18 00:50 Acanthocytes (Spur) Not Reportable 10/18/18 00:50 Rouleaux Not Reportable 10/18/18 00:50 Not Reportable 10/18/18 00:50 Not Reportable 10/18/18 00:50 Not Reportable 10/18/18 00:50 Not Reportable 10/18/18 00:50 Hem Pathologist Commnt No 10/18/18 00:50 POC ABG pH 7.347 (7.35-7.45) L 10/18/18 11:56 POC ABG pCO2 33.1 (35-45) L 10/15/18 13:03 POC ABG pO2 72 (80-105) L 10/18/18 11:56 POC ABG HCO3 14.5 (22-26 mml/L) 10/18/18 11:56 POC ABG Total CO2 15 (23-27mmol/L) 10/18/18 11:56 POC ABG O2 Sat 94 10/18/18 11:56 POC ABG Base Excess -11 ((-2) - (+3)mmol/L) 10/18/18 11:56 50 % 10/18/18 11:56 Sodium 150 mmol/L (137-145) H 10/19/18 05:02 Potassium 4.0 mmol/L (3.6-5.0) 10/19/18 05:02 Chloride 123.1 mmol/L (98-107) H 10/19/18 05:02 Carbon Dioxide 16 mmol/L (22-30) L 10/19/18 05:02 15 mmol/L 10/19/18 05:02 BUN 87 mg/dL (9-20) H 10/19/18 05:02 2.2 mg/dL (0.8-1.5) H 10/19/18 05:02 Estimated GFR 37 ml/min 10/19/18 05:02 40 % 10/19/18 05:02 Glucose 116 mg/dL (75-100) H 10/19/18 05:02 POC Glucose 171 (70-105) H 10/19/18 11:03 Lactic Acid 1.40 mmol/L (0.7-2.0) 10/17/18 14:41 Calcium 8.0 mg/dL (8.4-10.2) L 10/19/18 05:02 Phosphorus 3.40 mg/dL (2.5-4.5) 10/18/18 16:41 Magnesium 2.10 mg/dL (1.7-2.3) 10/19/18 05:02 0.40 mg/dL (0.1-1.2) 10/16/18 05:18 AST 522 units/L (5-40) H 10/16/18 05:18 ALT 167 units/L (7-56) H 10/16/18 05:18 61 units/L (35-129) 10/16/18 05:18 0.034 ng/mL (0.00-0.029) H 10/14/18 23:21 21.20 mg/dL (0.00-1.30) H 10/17/18 14:41 6.4 g/dL (6.3-8.2) 10/16/18 05:18 1.5 g/dL (3.9-5) L 10/16/18 05:18 0.3 % 10/16/18 05:18 Triglycerides 63 mg/dL (2-149) 10/14/18 23:21 Cholesterol 59 mg/dL (50-199) 10/14/18 23:21 13 mg/dL (50-130) L 10/14/18 23:21 28 mg/dL (40-59) L 10/14/18 23:21 2.10 % 10/14/18 23:21 TSH 2.560 mlU/mL (0.270-4.200) 10/16/18 12:40 Free T4 0.38 ng/dL (0.76-1.46) L 10/16/18 12:40 1.8 ug/dL (4.0-12.0) L 10/16/18 12:40 [place] (Yellow) 10/14/18 01:27 Cloudy (Clear) 10/14/18 01:27 5.0 (5.0-7.0) 10/14/18 01:27 Ur Specific [place] 1.020 (1.003-1.030) 10/14/18 01:27 100 mg/dl mg/dL (Negative) 10/14/18 01:27 Neg mg/dL (Negative) 10/14/18 01:27 Neg mg/dL (Negative) 10/14/18 01:27 Lg (Negative) 10/14/18 01:27 Neg (Negative) 10/14/18 01:27 Neg (Negative) 10/14/18 01:27 2.0 mg/dL (<2.0) 10/14/18 01:27 Ur Leukocyte Esterase Neg (Negative) 10/14/18 01:27 6.0 /HPF (0.0-6.0) 10/14/18 01:27 95.0 /HPF (0.0-6.0) 10/14/18 01:27 U Epithel Cells (Auto) < 1.0 /HPF (0-13.0) 10/14/18 01:27 Amorphous Crystals 3+ 10/14/18 01:27 Hyaline Casts 4 /LPF 10/14/18 01:27 Granular Casts 2 /LPF 10/14/18 01:27 1+ /HPF 10/14/18 01:27 36.3 mg/dL (0.1-20.0) H 10/17/18 19:45 Protein/Creatinin Ratio 1.35 10/17/18 19:45 46 mmol/L 10/17/18 19:45 39.3 mmolL (110-250) L 10/17/18 19:45 49 mg/dL (5-11.8) H 10/17/18 19:45 Random Vancomycin 7.6 ug/mL (0-40.0) 10/17/18 05:20 Lymph Enumerat CD4/CD8 0.84 (0.86-5.00) L 10/15/18 15:13 % CD3 Cells 60 % (57-85) 10/15/18 15:13 187 cells/uL (840-3060) L 10/15/18 15:13 % CD4 Cells 28 % (30-61) L 10/15/18 15:13 88 cells/uL (490-1740) L 10/15/18 15:13 % CD8 Cells 34 % (12-42) 10/15/18 15:13 104 cells/uL (180-1170) L 10/15/18 15:13 % CD19 Cells 27 % (6-29) 10/15/18 15:13 82 cells/uL (110-660) L 10/15/18 15:13 HIV-1 RNA PCR copies/ml <20 Copies/mL H 10/15/18 15:13 <1.30 Log cps/mL H 10/15/18 15:13 Active Medications - Current Medications Current Medications: Generic Name Dose Route Start Last Admin Trade Name Freq PRN Reason Stop Dose Admin Acetaminophen 650 mg 10/15/18 03:28 Tylenol PO Q4H PRN Pain MILD(1-3)/Fever >100.5/DELGADO Albuterol 2.5 mg 10/16/18 10:30 Proventil IH Q4HRT PRN Shortness Of Breath Albuterol/Ipratropium 1 ampul 10/15/18 14:00 10/19/18 14:34 Duoneb *Not For Prn Use* IH 1 ampul Q6HRT BLOSSOM Administration Lipase/Protease/Amylase 1 each 10/16/18 16:25 Pancreaze 10,500 Unit FEEDTUBE PRN PRN For Clogged Feeding Tube Aspirin 325 mg 10/17/18 10:00 10/19/18 10:08 Aspirin FEEDTUBE 325 mg DAILY BLOSSOM Administration Atorvastatin Calcium 20 mg 10/16/18 22:00 10/18/18 22:07 Lipitor FEEDTUBE 20 mg HS BLOSSOM Administration Atovaquone 750 mg 10/19/18 16:00 Mepron PO BID BLOSSOM Bisacodyl 10 mg 10/16/18 10:30 Dulcolax IA DAILY PRN Constipation Budesonide 0.5 mg 10/15/18 20:00 10/19/18 09:18 Pulmicort IH 0.5 mg Q12HRT BLOSSOM Administration Cholecalciferol 2,000 unit 10/17/18 10:00 10/19/18 10:08 Vitamin D3 FEEDTUBE 2,000 unit QAM BLOSSOM Administration Darunavir 800 mg 10/19/18 13:00 10/19/18 14:00 Prezista PO 800 mg QDAY BLOSSOM Administration Docusate Sodium 100 mg 10/16/18 10:30 Colace FEEDTUBE Q12H PRN Constipation Famotidine 20 mg 10/15/18 10:00 10/19/18 10:08 Pepcid IV 20 mg QAM BLOSSOM Administration Fluoxetine HCl 40 mg 10/17/18 10:00 10/19/18 10:09 Prozac PO 40 mg QDAY BLOSSOM Administration Norepinephrine 4 mg in 250 mls @ 7.5 mls/hr 10/15/18 13:00 10/18/18 04:45 Levophed Drip 4 Mg/Ns 250 Ml IV 4 mcg/min TITR BLOSSOM 15 mls/hr Administration Protocol 2 MCG/MIN Cefazolin Sodium 2 gm/ Sodium 100 mls @ 100 mls/hr 10/18/18 12:00 10/19/18 11:23 Chloride IV 100 mls/hr Q24HR BLOSSOM Administration Sodium Chloride 1,000 mls @ 100 mls/hr 10/18/18 22:00 Nacl 0.45% 1000 Ml IV DIRECT BLOSSOM Dextrose 1,000 mls @ 50 mls/hr 10/19/18 12:00 D5w IV 10/20/18 07:59 DIRECT BLOSSOM Lamivudine 100 mg 10/20/18 10:00 Epivir PO DAILY BLOSSOM Levothyroxine Sodium 75 mcg 10/18/18 06:00 10/19/18 06:31 Synthroid PO 75 mcg DAILY@0600 BLOSSOM Administration Methylprednisolone Sodium Succinate 40 mg 10/16/18 14:00 10/19/18 14:00 Solu-Medrol IV 40 mg Q8HR BLOSSOM Administration Morphine Sulfate 2 mg 10/15/18 03:28 Morphine IV Q4H PRN Pain, Moderate (4-6) Ondansetron HCl 4 mg 10/15/18 03:28 Zofran IV Q8H PRN Nausea And Vomiting Polyethylene Glycol 17 gm 10/16/18 10:30 Miralax 3350 FEEDTUBE DAILY PRN Constipation Quetiapine Fumarate 100 mg 10/16/18 11:00 10/19/18 10:11 Seroquel FEEDTUBE Not Given Q8H BLOSSOM Ritonavir 100 mg 10/19/18 12:00 10/19/18 14:00 Norvir PO 100 mg DAILY BLOSSOM Administration Scopolamine 1 each 10/16/18 11:00 10/19/18 10:10 Transderm-Scop TD 1 each Q72H BLOSSOM Administration Senna 17.2 mg 10/16/18 22:00 10/18/18 22:07 Senokot FEEDTUBE 17.2 mg HS BLOSSOM Administration Simple Syrup 15 ml 10/16/18 16:25 Simple Syrup FEEDTUBE PRN PRN Hypoglycemia Simple Syrup 30 ml 10/16/18 16:25 Simple Syrup FEEDTUBE PRN PRN Hypoglycemia Sodium Bicarbonate 325 mg 10/16/18 16:25 Sodium Bicarbonate FEEDTUBE PRN PRN For Clogged Feeding Tube Sodium Chloride 10 ml 10/15/18 10:00 10/19/18 10:08 Sodium Chloride Flush Syringe 10 Ml IV 10 ml BID BLOSSOM Administration Sodium Chloride 10 ml 10/15/18 03:28 Sodium Chloride Flush Syringe 10 Ml IV PRN PRN LINE FLUSH Tenofovir Disoproxil Fumarate 300 mg 10/19/18 13:00 10/19/18 14:00 Viread PO 300 mg Q96H BLOSSOM Administration Nutrition/Malnutrition Assess - Dietary Evaluation Nutrition/Malnutrition Findings: Nutrition Notes Start: 10/16/18 16:06 Freq: Status: Active Protocol: Document 10/18/18 09:40 CP (Rec: 10/18/18 09:42 CP [id number]) Co-Sign 10/18/18 09:40 LP Nutrition Notes Initial or Follow up Brief Note Current Diagnosis COPD,Sepsis,Respiratory Failure,Stroke Other Pertinent Diagnosis HIV/AIDS, Pneu, PEG Current Diet Vital AF 1.2 @ 50 mL/hr Subjective/Other Information F/U for new TF and Na lab. TF infusing at goal rate during time of visit. No Na lab provided for today, but was 150 on 10/17/18. Nutrition Intervention Follow-Up By: 10/20/18 Additional Comments F/U: TF tolerance, Na lab
[2018-10-19] MEDS: MEPRON PO SCH ×2 (16:56→21:48)
[2018-10-19] MEDS: SENOKOT FEEDTUBE SCH (21:37)
[2018-10-20] MEDS: DUONEB *Not for PRN Use IH SCH ×4 (02:28→20:58)
[2018-10-20] MEDS: SYNTHROID PO SCH (06:12)
[2018-10-20] MEDS: SOLU-Medrol IV SCH ×3 (06:12→22:56)
[2018-10-20 06:47] LABS: Calcium 7.8 mg/dL (8.4-10.2)
[2018-10-20] MEDS: PULMICORT IH SCH ×2 (08:52→20:58)
--- NOTE | 2018-10-20 09:09 | Progress Note ---
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 Target blood glucose is 140-180 mg/dL -Continue free water flushes to treat hypernatremia -VTE prophylaxis -Continue Anti-infectives per ID , de-escalate based on culture - Monitor renal indices closely - Avoid nephrotoxic agents, adjust all medications for CrCL - Strict intake and output monitoring - Supportive transfusions as indicated - Maintenance of sleep -wake cycle - Mobility as tolerated by hemodynamics, for pressure ulcer prevention - Influenza and pneumonia vaccination per protocol -Supportive care -Place peripheral IV, discontinue central venous catheter - Goals of care need to be addressed with family or POA. 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[employer] Subjective Date of service: 10/20/18 Principal diagnosis: Ac Hypoxemic Resp Failure; Pneumonia (HAP); Acute encep halopathy ; HIV/AIDS Interval history: Patient is seen today for: Acute Hypoxemic Respiratory Failure; Right midlung pneumonia (HAP); H/O Tracheostomy; COPD; Acute encephalopathy ; HIV/AIDS (viral load and CD4 unknown); H/o toxoplasmosis; H/o syphilitic encephalopathy Seen and examined at bedside; 24hour events reviewed; nursing and respiratory care staff consulted; no adverse overnight events reported to me; remains on supplemental oxygen; mental status changes persistent, no fevers, no vomiting, tolerating PEG tube feeding; resting peacefully in bed; was hypothermic overnight and required external warming; Objective Vital Signs - 12hr 10/19/18 10/19/18 10/19/18 21:11 21:21 21:30 Temperature Pulse Rate 116 H 115 H 115 H Pulse Rate [ Bilateral] Pulse Rate [ From Monitor] Respiratory 18 25 H 20 Rate Respiratory Rate [Bilateral ] Blood Pressure 118/62 106/64 108/64 O2 Sat by Pulse 92 92 91 Oximetry 10/19/18 10/19/18 10/19/18 21:41 21:51 22:00 Temperature Pulse Rate 115 H 117 H 114 H Pulse Rate [ Bilateral] Pulse Rate [ From Monitor] Respiratory 19 22 19 Rate Respiratory Rate [Bilateral ] Blood Pressure 108/64 108/67 109/71 O2 Sat by Pulse 94 94 94 Oximetry 10/19/18 10/19/18 10/19/18 22:11 22:21 22:30 Temperature Pulse Rate 115 H 114 H 116 H Pulse Rate [ Bilateral] Pulse Rate [ From Monitor] Respiratory 19 20 20 Rate Respiratory Rate [Bilateral ] Blood Pressure 108/67 107/70 118/68 O2 Sat by Pulse 94 94 93 Oximetry 10/19/18 10/19/18 10/19/18 22:41 22:51 23:00 Temperature Pulse Rate 115 H 115 H 113 H Pulse Rate [ Bilateral] Pulse Rate [ From Monitor] Respiratory 22 18 18 Rate Respiratory Rate [Bilateral ] Blood Pressure 109/71 119/66 112/65 O2 Sat by Pulse 94 94 92 Oximetry 10/19/18 10/19/18 10/19/18 23:06 23:11 23:21 Temperature 98.4 F Pulse Rate 114 H 112 H Pulse Rate [ Bilateral] Pulse Rate [ From Monitor] Respiratory 20 18 Rate Respiratory Rate [Bilateral ] Blood Pressure 112/65 115/69 O2 Sat by Pulse 93 92 Oximetry 10/19/18 10/19/18 10/19/18 23:30 23:37 23:41 Temperature Pulse Rate 114 H 113 H 113 H Pulse Rate [ Bilateral] Pulse Rate [ From Monitor] Respiratory 20 19 15 Rate Respiratory Rate [Bilateral ] Blood Pressure 117/69 115/69 115/69 O2 Sat by Pulse 90 92 92 Oximetry 10/19/18 10/20/18 10/20/18 23:51 00:00 00:11 Temperature Pulse Rate 111 H 113 H 111 H Pulse Rate [ Bilateral] Pulse Rate [ 108 H From Monitor] Respiratory 18 17 19 Rate Respiratory Rate [Bilateral ] Blood Pressure 111/70 115/68 115/68 O2 Sat by Pulse 91 92 92 Oximetry 10/20/18 10/20/18 10/20/18 00:21 00:30 00:41 Temperature Pulse Rate 112 H 110 H 110 H Pulse Rate [ Bilateral] Pulse Rate [ From Monitor] Respiratory 19 17 20 Rate Respiratory Rate [Bilateral ] Blood Pressure 108/70 114/67 108/70 O2 Sat by Pulse 92 91 92 Oximetry 10/20/18 10/20/18 10/20/18 00:51 01:00 01:11 Temperature Pulse Rate 110 H 111 H 108 H Pulse Rate [ Bilateral] Pulse Rate [ From Monitor] Respiratory 18 20 18 Rate Respiratory Rate [Bilateral ] Blood Pressure 115/67 114/68 114/68 O2 Sat by Pulse 93 92 93 Oximetry 10/20/18 10/20/18 10/20/18 01:21 01:30 01:41 Temperature Pulse Rate 107 H 109 H 108 H Pulse Rate [ Bilateral] Pulse Rate [ From Monitor] Respiratory 19 20 17 Rate Respiratory Rate [Bilateral ] Blood Pressure 110/68 117/68 110/68 O2 Sat by Pulse 93 92 94 Oximetry 10/20/18 10/20/18 10/20/18 01:51 02:00 02:11 Temperature Pulse Rate 106 H 109 H 106 H Pulse Rate [ 104 H Bilateral] Pulse Rate [ From Monitor] Respiratory 16 17 17 Rate Respiratory 17 Rate [Bilateral ] Blood Pressure 108/67 107/67 108/67 O2 Sat by Pulse 94 93 94 Oximetry 10/20/18 10/20/18 10/20/18 02:21 02:30 02:41 Temperature Pulse Rate 106 H 107 H 108 H Pulse Rate [ Bilateral] Pulse Rate [ From Monitor] Respiratory 17 18 18 Rate Respiratory Rate [Bilateral ] Blood Pressure 115/67 112/69 112/69 O2 Sat by Pulse 94 93 94 Oximetry 10/20/18 10/20/18 10/20/18 02:42 02:51 03:00 Temperature Pulse Rate 108 H 108 H Pulse Rate [ 108 H Bilateral] Pulse Rate [ From Monitor] Respiratory 21 21 Rate Respiratory 19 Rate [Bilateral ] Blood Pressure 109/65 112/66 O2 Sat by Pulse 93 92 Oximetry 10/20/18 10/20/18 10/20/18 03:11 03:17 03:21 Temperature 98.8 F Pulse Rate 108 H 108 H Pulse Rate [ Bilateral] Pulse Rate [ From Monitor] Respiratory 27 H 18 Rate Respiratory Rate [Bilateral ] Blood Pressure 112/66 111/65 O2 Sat by Pulse 93 93 Oximetry 10/20/18 10/20/18 10/20/18 03:30 03:41 03:51 Temperature Pulse Rate 108 H 108 H 109 H Pulse Rate [ Bilateral] Pulse Rate [ From Monitor] Respiratory 19 18 19 Rate Respiratory Rate [Bilateral ] Blood Pressure 112/67 112/67 108/66 O2 Sat by Pulse 92 93 93 Oximetry 10/20/18 10/20/18 10/20/18 04:00 04:11 04:21 Temperature Pulse Rate 107 H 108 H 106 H Pulse Rate [ Bilateral] Pulse Rate [ 108 H From Monitor] Respiratory 20 17 18 Rate Respiratory Rate [Bilateral ] Blood Pressure 105/66 105/66 113/67 O2 Sat by Pulse 92 93 94 Oximetry 10/20/18 10/20/18 10/20/18 04:30 04:41 04:51 Temperature Pulse Rate 108 H 108 H 108 H Pulse Rate [ Bilateral] Pulse Rate [ From Monitor] Respiratory 20 17 17 Rate Respiratory Rate [Bilateral ] Blood Pressure 107/71 107/71 106/68 O2 Sat by Pulse 92 94 94 Oximetry 10/20/18 10/20/18 10/20/18 05:00 05:11 05:21 Temperature Pulse Rate 107 H 108 H 107 H Pulse Rate [ Bilateral] Pulse Rate [ From Monitor] Respiratory 18 18 23 Rate Respiratory Rate [Bilateral ] Blood Pressure 114/67 114/67 111/69 O2 Sat by Pulse 93 95 94 Oximetry 10/20/18 10/20/18 10/20/18 05:30 05:41 05:51 Temperature Pulse Rate 107 H 106 H 106 H Pulse Rate [ Bilateral] Pulse Rate [ From Monitor] Respiratory 16 20 20 Rate Respiratory Rate [Bilateral ] Blood Pressure 106/66 106/66 106/66 O2 Sat by Pulse 93 95 95 Oximetry 10/20/18 10/20/18 10/20/18 06:00 06:11 06:21 Temperature Pulse Rate 107 H 106 H 108 H Pulse Rate [ Bilateral] Pulse Rate [ From Monitor] Respiratory 18 17 20 Rate Respiratory Rate [Bilateral ] Blood Pressure 114/68 114/68 109/69 O2 Sat by Pulse 95 95 95 Oximetry 10/20/18 10/20/18 10/20/18 06:30 06:41 06:51 Temperature Pulse Rate 106 H 107 H 106 H Pulse Rate [ Bilateral] Pulse Rate [ From Monitor] Respiratory 17 15 17 Rate Respiratory Rate [Bilateral ] Blood Pressure 113/70 113/70 116/71 O2 Sat by Pulse 94 95 95 Oximetry 10/20/18 10/20/18 10/20/18 07:00 07:11 07:21 Temperature Pulse Rate 105 H 107 H 109 H Pulse Rate [ Bilateral] Pulse Rate [ From Monitor] Respiratory 19 20 19 Rate Respiratory Rate [Bilateral ] Blood Pressure 120/69 120/69 117/70 O2 Sat by Pulse 93 94 94 Oximetry 10/20/18 10/20/18 10/20/18 07:30 07:41 07:51 Temperature Pulse Rate 105 H 108 H 108 H Pulse Rate [ Bilateral] Pulse Rate [ From Monitor] Respiratory 15 19 16 Rate Respiratory Rate [Bilateral ] Blood Pressure 111/68 111/68 120/69 O2 Sat by Pulse 93 94 94 Oximetry 10/20/18 10/20/18 10/20/18 08:00 08:11 08:21 Temperature 97.4 F L Pulse Rate 107 H 105 H 106 H Pulse Rate [ Bilateral] Pulse Rate [ From Monitor] Respiratory 16 15 13 Rate Respiratory Rate [Bilateral ] Blood Pressure 111/69 111/69 114/72 O2 Sat by Pulse 93 94 93 Oximetry 10/20/18 10/20/18 10/20/18 08:30 08:41 08:51 Temperature Pulse Rate 107 H 107 H 106 H Pulse Rate [ Bilateral] Pulse Rate [ From Monitor] Respiratory 15 16 14 Rate Respiratory Rate [Bilateral ] Blood Pressure 117/71 117/71 111/69 O2 Sat by Pulse 93 94 94 Oximetry 10/20/18 10/20/18 08:56 09:00 Temperature Pulse Rate 106 H Pulse Rate [ 113 H Bilateral] Pulse Rate [ From Monitor] Respiratory 16 Rate Respiratory 22 Rate [Bilateral ] Blood Pressure 112/69 O2 Sat by Pulse 93 93 Oximetry Constitutional: appears uncomfortable, other (middle aged and chronically ill looking AAM with increased resp effort at rest) Eyes: non-icteric ENT: oropharynx moist, other (mallampati 2) Neck: supple, no lymphadenopathy, no JVD, other (no thyromegaly, LIJ CVC) Effort: mildly labored Ascultation: Bilateral: diminished breath sounds, rhonchi Percussion: Bilateral: not dull Cardiovascular: regular rate and rhythm, other (S1,S2) Gastrointestinal: normoactive bowel sounds, soft, non-tender, non-distended Integumentary: other (poor turgor) Extremities: no cyanosis, no edema, pulses normal, no ischemia or petechiae Neurologic: pupils equal and round, other (+ cognitive dysfunction) Psychiatric: other (flat ) CBC and BMP: 05/12/19 19:28 10/23/18 04:23 ABG, PT/INR, D-dimer: ABG POC ABG pH 7.347 (7.35-7.45) L 10/18/18 11:56 POC ABG pO2 72 (80-105) L 10/18/18 11:56 POC ABG HCO3 14.5 (22-26 mml/L) 10/18/18 11:56 POC ABG Total CO2 15 (23-27mmol/L) 10/18/18 11:56 POC ABG O2 Sat 94 10/18/18 11:56 Abnormal lab findings: Abnormal Labs 10/14/18 10/14/18 10/14/18 23:21 23:21 23:21 WBC RBC Hgb 10.2 L Hct 32.0 L MCH MCHC RDW 18.9 H Plt Count 100 L Seg Neuts % (Manual) 34.0 L Lymphocytes % (Manual) Monocytes % (Manual) Nucleated RBC % Seg Neutrophils # Man 1.7 L Abs Lymphs (Manual) Lymphocytes # (Manual) 0.8 L POC ABG pH POC ABG pCO2 POC ABG pO2 Sodium 156 H Potassium Chloride 117.8 H Carbon Dioxide 19 L BUN 124 H Creatinine 4.8 H Glucose POC Glucose Lactic Acid 4.90 H* Calcium Magnesium AST 72 H ALT Troponin T 0.034 H C-Reactive Protein Albumin 1.9 L LDL Cholesterol Direct 13 L HDL Cholesterol 28 L Free T4 Thyroxine (T4) Urine Creatinine Urine Chloride Urine Total Protein Lymph Enumerat CD4/CD8 Absolute CD3 Count % CD4 Cells Absolute CD4 Count Absolute CD8 Count Absolute CD19 Count HIV-1 RNA PCR copies/ml HIV-1 RNA (PCR) log 10/15/18 10/15/18 10/15/18 00:50 03:46 04:29 WBC RBC Hgb Hct MCH MCHC RDW Plt Count Seg Neuts % (Manual) Lymphocytes % (Manual) Monocytes % (Manual) Nucleated RBC % Seg Neutrophils # Man Abs Lymphs (Manual) Lymphocytes # (Manual) POC ABG pH POC ABG pCO2 POC ABG pO2 Sodium Potassium Chloride Carbon Dioxide BUN Creatinine Glucose POC Glucose Lactic Acid 3.30 H* 2.20 H* 2.20 H* Calcium Magnesium AST ALT Troponin T C-Reactive Protein Albumin LDL Cholesterol Direct HDL Cholesterol Free T4 Thyroxine (T4) Urine Creatinine Urine Chloride Urine Total Protein Lymph Enumerat CD4/CD8 Absolute CD3 Count % CD4 Cells Absolute CD4 Count Absolute CD8 Count Absolute CD19 Count HIV-1 RNA PCR copies/ml HIV-1 RNA (PCR) log 10/15/18 10/15/18 10/15/18 05:37 06:18 09:16 WBC RBC Hgb Hct MCH MCHC RDW Plt Count Seg Neuts % (Manual) Lymphocytes % (Manual) Monocytes % (Manual) Nucleated RBC % Seg Neutrophils # Man Abs Lymphs (Manual) Lymphocytes # (Manual) POC ABG pH POC ABG pCO2 POC ABG pO2 Sodium Potassium Chloride Carbon Dioxide BUN Creatinine Glucose POC Glucose Lactic Acid 2.30 H* 2.50 H* 3.10 H* Calcium Magnesium AST ALT Troponin T C-Reactive Protein Albumin LDL Cholesterol Direct HDL Cholesterol Free T4 Thyroxine (T4) Urine Creatinine Urine Chloride Urine Total Protein Lymph Enumerat CD4/CD8 Absolute CD3 Count % CD4 Cells Absolute CD4 Count Absolute CD8 Count Absolute CD19 Count HIV-1 RNA PCR copies/ml HIV-1 RNA (PCR) log 10/15/18 10/15/18 10/15/18 09:16 13:03 15:13 WBC RBC Hgb Hct MCH MCHC RDW Plt Count Seg Neuts % (Manual) Lymphocytes % (Manual) Monocytes % (Manual) Nucleated RBC % Seg Neutrophils # Man Abs Lymphs (Manual) Lymphocytes # (Manual) POC ABG pH 7.308 L POC ABG pCO2 33.1 L POC ABG pO2 70 L Sodium 158 H Potassium Chloride 121.1 H Carbon Dioxide 19 L BUN 120 H Creatinine 4.3 H Glucose 119 H POC Glucose Lactic Acid 2.70 H* Calcium 8.0 L Magnesium AST ALT Troponin T C-Reactive Protein Albumin LDL Cholesterol Direct HDL Cholesterol Free T4 Thyroxine (T4) Urine Creatinine Urine Chloride Urine Total Protein Lymph Enumerat CD4/CD8 Absolute CD3 Count % CD4 Cells Absolute CD4 Count Absolute CD8 Count Absolute CD19 Count HIV-1 RNA PCR copies/ml HIV-1 RNA (PCR) log 10/15/18 10/15/18 10/16/18 15:13 15:13 05:18 WBC 4.2 L RBC Hgb 10.8 L Hct 34.9 L MCH 27 L MCHC 31 L RDW 19.6 H Plt Count 38 L Seg Neuts % (Manual) 39.0 L Lymphocytes % (Manual) 9.0 L Monocytes % (Manual) 12.0 H Nucleated RBC % Seg Neutrophils # Man 1.6 L Abs Lymphs (Manual) 309 L Lymphocytes # (Manual) 0.4 L POC ABG pH POC ABG pCO2 POC ABG pO2 Sodium Potassium Chloride Carbon Dioxide BUN Creatinine Glucose POC Glucose Lactic Acid Calcium Magnesium AST ALT Troponin T C-Reactive Protein Albumin LDL Cholesterol Direct HDL Cholesterol Free T4 Thyroxine (T4) Urine Creatinine Urine Chloride Urine Total Protein Lymph Enumerat CD4/CD8 0.84 L Absolute CD3 Count 187 L % CD4 Cells 28 L Absolute CD4 Count 88 L Absolute CD8 Count 104 L Absolute CD19 Count 82 L HIV-1 RNA PCR copies/ml <20 H HIV-1 RNA (PCR) log <1.30 H 10/16/18 10/16/18 10/16/18 05:18 12:40 12:40 WBC RBC Hgb Hct MCH MCHC RDW Plt Count Seg Neuts % (Manual) Lymphocytes % (Manual) Monocytes % (Manual) Nucleated RBC % Seg Neutrophils # Man Abs Lymphs (Manual) Lymphocytes # (Manual) POC ABG pH POC ABG pCO2 POC ABG pO2 Sodium 161 H* Potassium 3.5 L Chloride 130.6 H Carbon Dioxide 18 L BUN 105 H Creatinine 3.4 H Glucose POC Glucose Lactic Acid Calcium Magnesium AST 522 H ALT 167 H Troponin T C-Reactive Protein Albumin 1.5 L LDL Cholesterol Direct HDL Cholesterol Free T4 0.38 L Thyroxine (T4) 1.8 L Urine Creatinine Urine Chloride Urine Total Protein Lymph Enumerat CD4/CD8 Absolute CD3 Count % CD4 Cells Absolute CD4 Count Absolute CD8 Count Absolute CD19 Count HIV-1 RNA PCR copies/ml HIV-1 RNA (PCR) log 10/16/18 10/16/18 10/17/18 15:19 23:43 00:17 WBC RBC Hgb Hct MCH MCHC RDW Plt Count Seg Neuts % (Manual) Lymphocytes % (Manual) Monocytes % (Manual) Nucleated RBC % Seg Neutrophils # Man Abs Lymphs (Manual) Lymphocytes # (Manual) POC ABG pH POC ABG pCO2 POC ABG pO2 62 L 63 L Sodium Potassium Chloride Carbon Dioxide BUN Creatinine Glucose POC Glucose 174 H Lactic Acid Calcium Magnesium AST ALT Troponin T C-Reactive Protein Albumin LDL Cholesterol Direct HDL Cholesterol Free T4 Thyroxine (T4) Urine Creatinine Urine Chloride Urine Total Protein Lymph Enumerat CD4/CD8 Absolute CD3 Count % CD4 Cells Absolute CD4 Count Absolute CD8 Count Absolute CD19 Count HIV-1 RNA PCR copies/ml HIV-1 RNA (PCR) log 10/17/18 10/17/18 10/17/18 06:55 11:57 14:41 WBC RBC Hgb Hct MCH MCHC RDW Plt Count Seg Neuts % (Manual) Lymphocytes % (Manual) Monocytes % (Manual) Nucleated RBC % Seg Neutrophils # Man Abs Lymphs (Manual) Lymphocytes # (Manual) POC ABG pH POC ABG pCO2 POC ABG pO2 Sodium 150 H D Potassium 3.3 L Chloride 122.3 H Carbon Dioxide 18 L BUN 91 H Creatinine 2.9 H Glucose 140 H POC Glucose 129 H 174 H Lactic Acid Calcium 8.0 L Magnesium 1.60 L AST ALT Troponin T C-Reactive Protein Albumin LDL Cholesterol Direct HDL Cholesterol Free T4 Thyroxine (T4) Urine Creatinine Urine Chloride Urine Total Protein Lymph Enumerat CD4/CD8 Absolute CD3 Count % CD4 Cells Absolute CD4 Count Absolute CD8 Count Absolute CD19 Count HIV-1 RNA PCR copies/ml HIV-1 RNA (PCR) log 10/17/18 10/17/18 10/17/18 14:41 18:56 19:45 WBC RBC Hgb Hct MCH MCHC RDW Plt Count Seg Neuts % (Manual) Lymphocytes % (Manual) Monocytes % (Manual) Nucleated RBC % Seg Neutrophils # Man Abs Lymphs (Manual) Lymphocytes # (Manual) POC ABG pH POC ABG pCO2 POC ABG pO2 Sodium Potassium Chloride Carbon Dioxide BUN Creatinine Glucose POC Glucose 125 H Lactic Acid Calcium Magnesium AST ALT Troponin T C-Reactive Protein 21.20 H Albumin LDL Cholesterol Direct HDL Cholesterol Free T4 Thyroxine (T4) Urine Creatinine 36.3 H Urine Chloride 39.3 L Urine Total Protein 49 H Lymph Enumerat CD4/CD8 Absolute CD3 Count % CD4 Cells Absolute CD4 Count Absolute CD8 Count Absolute CD19 Count HIV-1 RNA PCR copies/ml HIV-1 RNA (PCR) log 10/17/18 10/17/18 10/18/18 21:24 23:54 00:50 WBC RBC 3.23 L Hgb 8.9 L Hct 27.4 L D MCH MCHC RDW 19.6 H Plt Count 56 L Seg Neuts % (Manual) 81.0 H Lymphocytes % (Manual) 9.0 L Monocytes % (Manual) Nucleated RBC % 1.0 H Seg Neutrophils # Man 8.4 H Abs Lymphs (Manual) Lymphocytes # (Manual) 0.9 L POC ABG pH 7.328 L POC ABG pCO2 POC ABG pO2 66 L Sodium Potassium Chloride Carbon Dioxide BUN Creatinine Glucose POC Glucose 128 H Lactic Acid Calcium Magnesium AST ALT Troponin T C-Reactive Protein Albumin LDL Cholesterol Direct HDL Cholesterol Free T4 Thyroxine (T4) Urine Creatinine Urine Chloride Urine Total Protein Lymph Enumerat CD4/CD8 Absolute CD3 Count % CD4 Cells Absolute CD4 Count Absolute CD8 Count Absolute CD19 Count HIV-1 RNA PCR copies/ml HIV-1 RNA (PCR) log 10/18/18 10/18/18 10/18/18 05:55 11:56 16:41 WBC RBC Hgb Hct MCH MCHC RDW Plt Count Seg Neuts % (Manual) Lymphocytes % (Manual) Monocytes % (Manual) Nucleated RBC % Seg Neutrophils # Man Abs Lymphs (Manual) Lymphocytes # (Manual) POC ABG pH 7.347 L POC ABG pCO2 POC ABG pO2 72 L Sodium 151 H Potassium Chloride 122.8 H Carbon Dioxide 16 L BUN 91 H Creatinine 2.3 H Glucose 158 H POC Glucose 147 H Lactic Acid Calcium Magnesium AST ALT Troponin T C-Reactive Protein Albumin LDL Cholesterol Direct HDL Cholesterol Free T4 Thyroxine (T4) Urine Creatinine Urine Chloride Urine Total Protein Lymph Enumerat CD4/CD8 Absolute CD3 Count % CD4 Cells Absolute CD4 Count Absolute CD8 Count Absolute CD19 Count HIV-1 RNA PCR copies/ml HIV-1 RNA (PCR) log 10/18/18 10/19/18 10/19/18 23:18 05:02 05:51 WBC RBC Hgb Hct MCH MCHC RDW Plt Count Seg Neuts % (Manual) Lymphocytes % (Manual) Monocytes % (Manual) Nucleated RBC % Seg Neutrophils # Man Abs Lymphs (Manual) Lymphocytes # (Manual) POC ABG pH POC ABG pCO2 POC ABG pO2 Sodium 150 H Potassium Chloride 123.1 H Carbon Dioxide 16 L BUN 87 H Creatinine 2.2 H Glucose 116 H POC Glucose 148 H 123 H Lactic Acid Calcium 8.0 L Magnesium AST ALT Troponin T C-Reactive Protein Albumin LDL Cholesterol Direct HDL Cholesterol Free T4 Thyroxine (T4) Urine Creatinine Urine Chloride Urine Total Protein Lymph Enumerat CD4/CD8 Absolute CD3 Count % CD4 Cells Absolute CD4 Count Absolute CD8 Count Absolute CD19 Count HIV-1 RNA PCR copies/ml HIV-1 RNA (PCR) log 10/19/18 10/19/18 10/19/18 11:03 17:16 23:52 WBC RBC Hgb Hct MCH MCHC RDW Plt Count Seg Neuts % (Manual) Lymphocytes % (Manual) Monocytes % (Manual) Nucleated RBC % Seg Neutrophils # Man Abs Lymphs (Manual) Lymphocytes # (Manual) POC ABG pH POC ABG pCO2 POC ABG pO2 Sodium Potassium Chloride Carbon Dioxide BUN Creatinine Glucose POC Glucose 171 H 181 H 195 H Lactic Acid Calcium Magnesium AST ALT Troponin T C-Reactive Protein Albumin LDL Cholesterol Direct HDL Cholesterol Free T4 Thyroxine (T4) Urine Creatinine Urine Chloride Urine Total Protein Lymph Enumerat CD4/CD8 Absolute CD3 Count % CD4 Cells Absolute CD4 Count Absolute CD8 Count Absolute CD19 Count HIV-1 RNA PCR copies/ml HIV-1 RNA (PCR) log 10/20/18 10/20/18 05:18 06:06 WBC RBC Hgb Hct MCH MCHC RDW Plt Count Seg Neuts % (Manual) Lymphocytes % (Manual) Monocytes % (Manual) Nucleated RBC % Seg Neutrophils # Man Abs Lymphs (Manual) Lymphocytes # (Manual) POC ABG pH POC ABG pCO2 POC ABG pO2 Sodium 147 H Potassium Chloride 116.9 H Carbon Dioxide 18 L BUN 89 H Creatinine 1.8 H Glucose 208 H POC Glucose 223 H Lactic Acid Calcium 7.8 L Magnesium AST ALT Troponin T C-Reactive Protein Albumin LDL Cholesterol Direct HDL Cholesterol Free T4 Thyroxine (T4) Urine Creatinine Urine Chloride Urine Total Protein Lymph Enumerat CD4/CD8 Absolute CD3 Count % CD4 Cells Absolute CD4 Count Absolute CD8 Count Absolute CD19 Count HIV-1 RNA PCR copies/ml HIV-1 RNA (PCR) log Allied health notes reviewed: nursing
[2018-10-20] MEDS: VITAMIN D3 FEEDTUBE SCH (10:02)
[2018-10-20] MEDS: EPIVIR PO SCH (10:03)
[2018-10-20] MEDS: PROzac PO SCH (10:03)
[2018-10-20] MEDS: SODIUM CHLORIDE FLUSH SYRINGE 10 ML IV SCH ×2 (10:03→22:57)
[2018-10-20] MEDS: PEPCID IV SCH (10:03)
[2018-10-20] MEDS: ceFAZolin 2 GM in NACL 0.9% 100 ML IV SCH (10:04)
[2018-10-20] MEDS: ASPIRIN FEEDTUBE SCH (10:04)
[2018-10-20] MEDS: PREZISTA PO SCH (10:04)
--- NOTE | 2018-10-20 10:10 | Progress Note ---
Assessment and Plan Cultures: Blood culture 10/14/2018 Staph Aureus, 2 out of 4 bottles, maguire suceptibile Blood culture 10/16/2018:no growth Urine culture 10/14/2018 negative Assessment: 58-year-old male with history of HIV AIDS, cachexia, toxoplasmosis, CVA with residual weakness, status post tracheostomy reversal for previous respiratory failure, syphilitic encephalitis, traumatic brain injury, cocaine and tobacco abuse, [facility] resident at [facility]; readmitted on 10/14/2018 due to AMS/lethargic and worsening shortness of breath for 34 hours. Patient is not able to provide a history, currently non verbal in mild respiratory distress. 1) Sepsis: Improved. off pressors. Etiology most likely pneumonia +/- staph aureus. 2) Pneumonia: possible aspiration pneumonia vs HAP. CXR showed probably COPD and right sided pneumonia. 3) Staph Aureus Bacteremia:. Blood culture 10/14/2018 showed Staph aureaus 2 out of 4 bottles.. Source unclear. TTE shows no vegetation. Repeat blood cultures show no growth to date. 4) Recent bilateral pneumonia, R>L causing acute respiratory failure, it was felt probably HCAP vs aspiration treated with cefepime and flagyl IV then changed to augmentin suspension 875mg PO BID for total 7 days. admission 08/27- 09/01/2018 5) HIV / AIDS: last viral load in March 2018 was undetectable and CD4 count was more than 700 on tenofovir, lamivudine, ritonavir boosted darunavir, current VL less than 20. CD4=88. Antiretrovirals restarted 10/19/18. 6) Acute on Chronic respiratory failure 7) Acute on chronic encephalopathy 8) Cachexia 9) DAMON: antibiotic renally dosed. Will contact pharmacy to restart ART therapy renally dosed Recommendations: - continue cefazolin 2gms IV every 24 hours, D3 - continue Mepron 750 bid , D2 -continue tenofovir, ritonavir, lamiivudine and darunavir -Anticipate discharge on Cefazolin for 2 weeks- Will evaluate Creatinine on Tuesday to determine dose -CMP and CBC ordered for Tuesday. 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 [facility] M: [phone] O:[phone] Subjective Date of service: 10/20/18 Principal diagnosis: Ac Hypoxemic Resp Failure; Pneumonia (HAP); Acute encephalopathy ; HIV/AIDS Objective - Constitutional Vitals: Vital Signs Temp Pulse Resp BP Pulse Ox 97.4 F L 107 H 24 112/69 93 10/20/18 08:00 10/20/18 09:10 10/20/18 09:10 10/20/18 09:00 10/20/18 09:00 Temperature -Last 24 Hours Temperature 97.4 F Temperature 98.8 F Temperature 98.4 F Temperature 98 F Temperature 97.8 F Temperature 97.7 F Temperature 96.8 F - Labs CBC & Chem 7: 10/18/18 00:50 10/20/18 06:06 Labs: Abnormal lab results 10/19/18 10/19/18 10/19/18 Range/Units 11:03 17:16 23:52 Sodium (137-145) mmol/L Chloride (98-107) mmol/L Carbon Dioxide (22-30) mmol/L BUN (9-20) mg/dL Creatinine (0.8-1.5) mg/dL Glucose (75-100) mg/dL POC Glucose 171 H 181 H 195 H (70-105) Calcium (8.4-10.2) mg/dL 10/20/18 10/20/18 Range/Units 05:18 06:06 Sodium 147 H (137-145) mmol/L Chloride 116.9 H (98-107) mmol/L Carbon Dioxide 18 L (22-30) mmol/L BUN 89 H (9-20) mg/dL Creatinine 1.8 H (0.8-1.5) mg/dL Glucose 208 H (75-100) mg/dL POC Glucose 223 H (70-105) Calcium 7.8 L (8.4-10.2) mg/dL
[2018-10-20] MEDS: NORVIR PO SCH (10:18)
[2018-10-20] MEDS: MEPRON PO SCH ×2 (10:18→22:57)
--- NOTE | 2018-10-20 14:13 | Progress Note ---
Assessment and Plan Assessment and plan: 58 year old man with history of HIV, toxoplasmosis, severe the reservoir deficits, syphilitic encephalopathy, history of polysubstance abuse including cocaine. He status post trach and tree traversal, has a g-tube still intact. The patient was brought from [facility] for respiratory distress and altered mental status Sepsis secondary to pneumonia, septic shock - ID is following him - Patient is on Mepron and cefazolin Acute kidney injury due to vasomotor nephropathy and ATN - IV fluids, nephrology Hypernatremia - Hypotonic IV fluid, free water via g-tube Acute hypoxic respiratory failure - Continue oxygen via venti mask and BiPAP as tolerated Hypothyroidism - thyroid function tests show low T4 and low free T4, increase synthroid dose HIV-AIDS - Patient is to restart add at the per ID DVT prophylaxis with heparin subcutaneously Disposition; transfer him to the floor. History Interval history: Patient was seen and evaluated this morning. No nursing issues reported overnight. Hospitalist Physical - Physical exam Narrative exam: Not in cardiopulmonary distress. The patient is cachectic. Vital signs as documented. Head exam is unremarkable. No scleral icterus . Neck is without jugular venous distension, thyromegaly, or carotid bruits. Lungs are clear to auscultation. Cardiac exam reveals regular rate and Rhythm. Abdominal exam reveals normal bowel sounds, no masses, no organomegaly and no aortic enlargement. Extremities are nonedematous and both femoral and pedal pulses are normal. 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 - Constitutional Vitals: Temp Pulse Resp BP Pulse Ox 96.8 F L 105 H 16 116/71 96 10/20/18 12:00 10/20/18 13:50 10/20/18 13:50 10/20/18 13:50 10/20/18 13:50 General appearance: Present: severe distress, cachectic Results - Labs CBC & Chem 7: 10/18/18 00:50 10/20/18 06:06 Labs: Laboratory Last Values WBC 10.4 K/mm3 (4.5-11.0) 10/18/18 00:50 RBC 3.23 M/mm3 (3.65-5.03) L 10/18/18 00:50 Hgb 8.9 gm/dl (11.8-15.2) L 10/18/18 00:50 Hct 27.4 % (35.5-45.6) L D 05/08/19 00:50 MCV 85 fl (84-94) 10/18/18 00:50 MCH 28 pg (28-32) 10/18/18 00:50 MCHC 32 % (32-34) 10/18/18 00:50 RDW 19.6 % (13.2-15.2) H 10/18/18 00:50 Plt Count 56 K/mm3 (140-440) L 10/18/18 00:50 Lymph % (Auto) Senior Financial Reporting Accountant 10/14/18 23:21 [place] % (Auto) Senior Financial Reporting Accountant 10/14/18 23:21 Eos % (Auto) Senior Financial Reporting Accountant 10/14/18 23:21 Bas[place] % (Auto) Senior Financial Reporting Accountant 10/14/18 23:21 Lymph # Senior Financial Reporting Accountant 10/14/18 23:21 [place] # Senior Financial Reporting Accountant 10/14/18 23:21 Eos # Senior Financial Reporting Accountant 10/14/18 23:21 Baso # Senior Financial Reporting Accountant 10/14/18 23:21 Add Manual Diff Complete 10/18/18 00:50 Total Counted 100 10/18/18 00:50 Seg Neutrophils % Senior Financial Reporting Accountant 10/18/18 00:50 Seg Neuts % (Manual) 81.0 % (40.0-70.0) H 10/18/18 00:50 7.0 % 10/18/18 00:50 9.0 % (13.4-35.0) L 10/18/18 00:50 Reactive Lymphs % (Man) 0 % 10/18/18 00:50 3.0 % (0.0-7.3) 10/18/18 00:50 0 % (0.0-4.3) 10/18/18 00:50 0 % (0.0-1.8) 10/18/18 00:50 0 % 10/18/18 00:50 0 % 10/18/18 00:50 0 % 10/18/18 00:50 0 % 10/18/18 00:50 Nucleated RBC % 1.0 % (0.0-0.9) H 10/18/18 00:50 Seg Neutrophils # Senior Financial Reporting Accountant 10/14/18 23:21 Seg Neutrophils # Man 8.4 K/mm3 (1.8-7.7) H 10/18/18 00:50 Band Neutrophils # 0.7 K/mm3 10/18/18 00:50 Abs Lymphs (Manual) 309 cells/uL (850-3900) L 10/15/18 15:13 0.9 K/mm3 (1.2-5.4) L 10/18/18 00:50 Abs React Lymphs (Man) 0.0 K/mm3 10/18/18 00:50 0.3 K/mm3 (0.0-0.8) 10/18/18 00:50 0.0 K/mm3 (0.0-0.4) 10/18/18 00:50 0.0 K/mm3 (0.0-0.1) 10/18/18 00:50 0.0 K/mm3 10/18/18 00:50 0.0 K/mm3 10/18/18 00:50 0.0 K/mm3 10/18/18 00:50 Blast Cells # 0.0 K/mm3 10/18/18 00:50 WBC Morphology Not Reportable 10/18/18 00:50 WBC Morphology TNR 10/18/18 00:50 Hypersegmented Neuts Not Reportable 10/18/18 00:50 Hyposegmented Neuts Not Reportable 10/18/18 00:50 Hypogranular Neuts Not Reportable 10/18/18 00:50 Not Reportable 10/18/18 00:50 Not Reportable 10/18/18 00:50 Not Reportable 10/18/18 00:50 Not Reportable 10/18/18 00:50 Not Reportable 10/18/18 00:50 Not Reportable 10/18/18 00:50 Appears decreased 10/18/18 00:50 Not Reportable 10/18/18 00:50 Plt Clumps, EDTA Not Reportable 10/18/18 00:50 Not Reportable 10/18/18 00:50 Not Reportable 10/18/18 00:50 Not Reportable 10/18/18 00:50 Plt Morphology Comment Not Reportable 10/18/18 00:50 RBC Morphology Not Reportable 10/18/18 00:50 Dimorphic RBCs Not Reportable 10/18/18 00:50 Not Reportable 10/18/18 00:50 Not Reportable 10/18/18 00:50 Not Reportable 10/18/18 00:50 1+ 10/18/18 00:50 Not Reportable 10/18/18 00:50 Not Reportable 10/18/18 00:50 Not Reportable 10/18/18 00:50 Not Reportable 10/18/18 00:50 Not Reportable 10/18/18 00:50 Few 10/18/18 00:50 Not Reportable 10/18/18 00:50 Not Reportable 10/18/18 00:50 Not Reportable 10/18/18 00:50 Not Reportable 10/18/18 00:50 Not Reportable 10/18/18 00:50 Not Reportable 10/18/18 00:50 Not Reportable 10/18/18 00:50 1+ 10/18/18 00:50 Not Reportable 10/18/18 00:50 Acanthocytes (Spur) Not Reportable 10/18/18 00:50 Rouleaux Not Reportable 10/18/18 00:50 Not Reportable 10/18/18 00:50 Not Reportable 10/18/18 00:50 Not Reportable 10/18/18 00:50 Not Reportable 10/18/18 00:50 Hem Pathologist Commnt No 10/18/18 00:50 POC ABG pH 7.347 (7.35-7.45) L 10/18/18 11:56 POC ABG pCO2 33.1 (35-45) L 10/15/18 13:03 POC ABG pO2 72 (80-105) L 10/18/18 11:56 POC ABG HCO3 14.5 (22-26 mml/L) 10/18/18 11:56 POC ABG Total CO2 15 (23-27mmol/L) 10/18/18 11:56 POC ABG O2 Sat 94 10/18/18 11:56 POC ABG Base Excess -11 ((-2) - (+3)mmol/L) 10/18/18 11:56 50 % 10/18/18 11:56 Sodium 147 mmol/L (137-145) H 10/20/18 06:06 Potassium 3.9 mmol/L (3.6-5.0) 10/20/18 06:06 Chloride 116.9 mmol/L (98-107) H 10/20/18 06:06 Carbon Dioxide 18 mmol/L (22-30) L 10/20/18 06:06 16 mmol/L 10/20/18 06:06 BUN 89 mg/dL (9-20) H 10/20/18 06:06 1.8 mg/dL (0.8-1.5) H 10/20/18 06:06 Estimated GFR 47 ml/min 10/20/18 06:06 49 % 10/20/18 06:06 Glucose 208 mg/dL (75-100) H 10/20/18 06:06 POC Glucose 238 (70-105) H 10/20/18 12:14 Lactic Acid 1.40 mmol/L (0.7-2.0) 10/17/18 14:41 Calcium 7.8 mg/dL (8.4-10.2) L 10/20/18 06:06 Phosphorus 3.40 mg/dL (2.5-4.5) 10/18/18 16:41 Magnesium 2.10 mg/dL (1.7-2.3) 10/19/18 05:02 0.40 mg/dL (0.1-1.2) 10/16/18 05:18 AST 522 units/L (5-40) H 10/16/18 05:18 ALT 167 units/L (7-56) H 10/16/18 05:18 61 units/L (35-129) 10/16/18 05:18 0.034 ng/mL (0.00-0.029) H 10/14/18 23:21 21.20 mg/dL (0.00-1.30) H 10/17/18 14:41 6.4 g/dL (6.3-8.2) 10/16/18 05:18 1.5 g/dL (3.9-5) L 10/16/18 05:18 0.3 % 10/16/18 05:18 Triglycerides 63 mg/dL (2-149) 10/14/18 23:21 Cholesterol 59 mg/dL (50-199) 10/14/18 23:21 13 mg/dL (50-130) L 10/14/18 23:21 28 mg/dL (40-59) L 10/14/18 23:21 2.10 % 10/14/18 23:21 TSH 2.560 mlU/mL (0.270-4.200) 10/16/18 12:40 Free T4 0.38 ng/dL (0.76-1.46) L 10/16/18 12:40 1.8 ug/dL (4.0-12.0) L 10/16/18 12:40 [place] (Yellow) 10/14/18 01:27 Cloudy (Clear) 10/14/18 01:27 5.0 (5.0-7.0) 10/14/18 01:27 Ur Specific [place] 1.020 (1.003-1.030) 10/14/18 01:27 100 mg/dl mg/dL (Negative) 10/14/18 01:27 Neg mg/dL (Negative) 10/14/18 01:27 Neg mg/dL (Negative) 10/14/18 01:27 Lg (Negative) 10/14/18 01:27 Neg (Negative) 10/14/18 01:27 Neg (Negative) 10/14/18 01:27 2.0 mg/dL (<2.0) 10/14/18 01:27 Ur Leukocyte Esterase Neg (Negative) 10/14/18 01:27 6.0 /HPF (0.0-6.0) 10/14/18 01:27 95.0 /HPF (0.0-6.0) 10/14/18 01:27 U Epithel Cells (Auto) < 1.0 /HPF (0-13.0) 10/14/18 01:27 Amorphous Crystals 3+ 10/14/18 01:27 Hyaline Casts 4 /LPF 10/14/18 01:27 Granular Casts 2 /LPF 10/14/18 01:27 1+ /HPF 10/14/18 01:27 36.3 mg/dL (0.1-20.0) H 10/17/18 19:45 Protein/Creatinin Ratio 1.35 10/17/18 19:45 46 mmol/L 10/17/18 19:45 39.3 mmolL (110-250) L 10/17/18 19:45 49 mg/dL (5-11.8) H 10/17/18 19:45 Random Vancomycin 7.6 ug/mL (0-40.0) 10/17/18 05:20 Lymph Enumerat CD4/CD8 0.84 (0.86-5.00) L 10/15/18 15:13 % CD3 Cells 60 % (57-85) 10/15/18 15:13 187 cells/uL (840-3060) L 10/15/18 15:13 % CD4 Cells 28 % (30-61) L 10/15/18 15:13 88 cells/uL (490-1740) L 10/15/18 15:13 % CD8 Cells 34 % (12-42) 10/15/18 15:13 104 cells/uL (180-1170) L 10/15/18 15:13 % CD19 Cells 27 % (6-29) 10/15/18 15:13 82 cells/uL (110-660) L 10/15/18 15:13 HIV-1 RNA PCR copies/ml <20 Copies/mL H 10/15/18 15:13 <1.30 Log cps/mL H 10/15/18 15:13 Active Medications - Current Medications Current Medications: Generic Name Dose Route Start Last Admin Trade Name Freq PRN Reason Stop Dose Admin Acetaminophen 650 mg 10/15/18 03:28 Tylenol PO Q4H PRN Pain MILD(1-3)/Fever >100.5/DELGADO Albuterol 2.5 mg 10/16/18 10:30 Proventil IH Q4HRT PRN Shortness Of Breath Albuterol/Ipratropium 1 ampul 10/15/18 14:00 10/20/18 08:52 Duoneb *Not For Prn Use* IH 1 ampul Q6HRT BLOSSOM Administration Lipase/Protease/Amylase 1 each 10/16/18 16:[address] 10,500 Unit FEEDTUBE PRN PRN For Clogged Feeding Tube Aspirin 325 mg 10/17/18 10:00 10/20/18 10:04 Aspirin FEEDTUBE 325 mg DAILY BLOSSOM Administration Atorvastatin Calcium 20 mg 10/16/18 22:00 10/19/18 21:37 Lipitor FEEDTUBE 20 mg HS BLOSSOM Administration Atovaquone 750 mg 10/19/18 16:00 10/20/18 10:18 Mepron PO 750 mg BID BLOSSOM Administration Bisacodyl 10 mg 10/16/18 10:[address] DAILY PRN Constipation Budesonide 0.5 mg 10/15/18 20:00 10/20/18 08:52 Pulmicort IH 0.5 mg Q12HRT BLOSSOM Administration Cholecalciferol 2,000 unit 10/17/18 10:00 10/20/18 10:02 Vitamin D3 FEEDTUBE 2,000 unit QAM [facility] Administration Darunavir 800 mg 10/19/18 13:00 10/20/18 10:04 Prezista PO 800 mg QDAY BLOSSOM Administration Docusate Sodium 100 mg 10/16/18 10:30 Colace FEEDTUBE Q12H PRN Constipation/STOOL SOFTENER Famotidine 20 mg 10/15/18 10:00 10/20/18 10:03 Pepcid IV 20 mg QAM [facility] Administration Fluoxetine HCl 40 mg 10/17/18 10:00 10/20/18 10:03 Prozac PO 40 mg QDAY BLOSSOM Administration Norepinephrine 4 mg in 250 mls @ 7.5 mls/hr 10/15/18 13:00 10/18/18 04:45 Levophed Drip 4 Mg/Ns 250 Ml IV 4 mcg/min TITR BLOSSOM 15 mls/hr Administration Protocol 2 MCG/MIN Cefazolin Sodium 2 gm/ Sodium 100 mls @ 100 mls/hr 10/18/18 12:00 10/20/18 10:04 Chloride IV 100 mls/hr Q24HR BLOSSOM Administration Sodium Chloride 1,000 mls @ 100 mls/hr 10/18/18 22:00 Nacl 0.45% 1000 Ml IV DIRECT BLOSSOM Lamivudine 100 mg 10/20/18 10:00 10/20/18 10:03 Epivir PO 100 mg DAILY [facility] Administration Levothyroxine Sodium 75 mcg 10/18/18 06:00 10/20/18 06:12 Synthroid PO 75 mcg DAILY@0600 [facility] Administration Methylprednisolone Sodium Succinate 40 mg 10/16/18 14:00 10/20/18 13:43 Solu-Medrol IV 40 mg Q8HR BLOSSOM Administration Morphine Sulfate 2 mg 10/15/18 03:28 Morphine IV Q4H PRN Pain, Moderate (4-6) Ondansetron HCl 4 mg 10/15/18 03:28 Zofran IV Q8H PRN Nausea And Vomiting Polyethylene Glycol 17 gm 10/16/18 10:30 Miralax 3350 FEEDTUBE DAILY PRN Constipation Quetiapine Fumarate 100 mg 10/16/18 11:00 10/20/18 06:13 Seroquel FEEDTUBE Not Given Q8H BLOSSOM Ritonavir 100 mg 10/19/18 12:00 10/20/18 10:18 Norvir PO 100 mg DAILY BLOSSOM Administration Scopolamine 1 each 10/16/18 11:00 10/19/18 10:10 Transderm-Scop TD 1 each Q72H BLOSSOM Administration Senna 17.2 mg 10/16/18 22:00 10/19/18 21:37 Senokot FEEDTUBE 17.2 mg HS BLOSSOM Administration Simple Syrup 15 ml 10/16/18 16:25 Simple Syrup FEEDTUBE PRN PRN Hypoglycemia Simple Syrup 30 ml 10/16/18 16:25 Simple Syrup FEEDTUBE PRN PRN Hypoglycemia Sodium Bicarbonate 325 mg 10/16/18 16:25 Sodium Bicarbonate FEEDTUBE PRN PRN For Clogged Feeding Tube Sodium Chloride 10 ml 10/15/18 10:00 10/20/18 10:03 Sodium Chloride Flush Syringe 10 Ml IV 10 ml BID BLOSSOM Administration Sodium Chloride 10 ml 10/15/18 03:28 Sodium Chloride Flush Syringe 10 Ml IV PRN PRN LINE FLUSH Tenofovir Disoproxil Fumarate 300 mg 10/19/18 13:00 10/19/18 14:00 Viread PO 300 mg Q96H BLOSSOM Administration Nutrition/Malnutrition Assess - Dietary Evaluation Nutrition/Malnutrition Findings: Nutrition Notes Start: 10/16/18 16:06 Freq: Status: Active Protocol: Document 10/20/18 10:28 CP (Rec: 10/20/18 10:34 CP [email or web address]) Co-Sign 10/20/18 10:28 LP Nutrition Notes Initial or Follow up Reassessment Current Diagnosis COPD,Sepsis,Respiratory Failure,Stroke Other Pertinent Diagnosis HIV/AIDS, Pneu, PEG Current Diet Vital AF 1.2 @ 50 mL/hr Labs/Tests Na: 147 BUN: 89 Glu: 208 Pertinent Medications Reviewed Height 5 ft 3 in Weight 57.6 kg [place] Body Weight (kg) 56.36 BMI 22.4 Subjective/Other Information F/U for TF tolerance and Na lab. Observed Vital AF 1.2 infusing at goal rate during time of visit. Per RN, pt is tolerating TF. Na is 147. RN giving water flush at 150 mL as discussed in rounds. Percent of energy/protein needs met: 93%/100% Burn Absent Trauma Absent #1 Nutrition Diagnosis Inadequate oral intake As Evidenced by Signs and Symptoms Pt meeting at least 80% of energy and protein needs via TF Diagnosis Progress(for reassessment Continues documentation) Is patient on ventilator? No Is Patient Ambulatory and/or Out of Bed No REE-([facility]-confined to bed) [phone] Calculation Used for Recommendations [facility] Additional Notes Pro: 69-115g/day(1.2-2g/kg) Fluid: 1mL/kcal or per MD request Nutrition Intervention Nutrition Support: Vital 1.2 at 50 ml/hr. Water flush of 250 mls q 6 hrs until hypernatremia resolves. Water flush of 100 mls q 4 hrs once hyperntreami resolves. Kcal 1,440 Protein (gm) 90 Fluid (mL) 973 Goal #1 TF tolerance Goal #2 Meet at least 80% of calorie and protein needs via TF Anticipated Discharge Needs: TF Follow-Up By: 10/24/18 Additional Comments F/U: TF tolerance, Na lab
--- NOTE | 2018-10-20 15:44 | Progress Note ---
Assessment and Plan - Patient Problems (1) Acute kidney failure with tubular necrosis Current Visit: Yes Status: Acute Plan to address problem: Kidney function is not improving. Continue current management (2) Hypernatremia Current Visit: Yes Status: Acute Plan to address problem: Significant free water deficit. Sodium improving with free water replacement. Continue free water and follow up Sodium (3) Acute and chronic respiratory failure with hypoxia Current Visit: Yes Status: Acute Plan to address problem: On BiPAP. Management by pulmonary (4) HCAP (healthcare-associated pneumonia) Current Visit: Yes Status: Acute Plan to address problem: Continue antibiotics appropriately dosed to the degree of kidney function. Follow cultures (5) HIV (human immunodeficiency virus infection) Current Visit: Yes Status: Chronic Qualifiers: Plan to address problem: Continue antiretrovirals and fu with infectious disease (6) Altered mental status Current Visit: No Status: Acute Qualifiers: Altered mental status type: somnolence Qualified Code(s): R40.0 - Somnolence Plan to address problem: Mental status a bit better. Baseline not known to me Subjective Date of service: 10/20/18 Principal diagnosis: Ac Hypoxemic Resp Failure; Pneumonia (HAP); Acute encephalopathy ; HIV/AIDS Interval history: Patient seen lying in bed. Nonverbal. Opens eyes to speech. Objective - Exam Narrative Exam: Frail, cachectic, middle-aged -[place] male in no acute distress HEENT: NCAT, pink oral mucous membrane Neck: Supple, no venous distention CVS: S1S2 RRR with no murmur, rub or gallop Chest: Low pitched rhonchi with scattered rales worse in right lower zone Abdomen: Protuberant, soft, nontender, no organomegaly, bowel sounds are present Extremities: No edema, muscle wasting Neuro: Reports are still speech, - Vital Signs Vital signs: Vital Signs - 12hr 10/20/18 10/20/18 10/20/18 03:51 04:00 04:11 Temperature Pulse Rate 109 H 107 H 108 H Pulse Rate [ Bilateral] Pulse Rate [ 108 H From Monitor] Respiratory 19 20 17 Rate Respiratory Rate [Bilateral ] Blood Pressure 108/66 105/66 105/66 O2 Sat by Pulse 93 92 93 Oximetry 10/20/18 10/20/18 10/20/18 04:21 04:30 04:41 Temperature Pulse Rate 106 H 108 H 108 H Pulse Rate [ Bilateral] Pulse Rate [ From Monitor] Respiratory 18 20 17 Rate Respiratory Rate [Bilateral ] Blood Pressure 113/67 107/71 107/71 O2 Sat by Pulse 94 92 94 Oximetry 10/20/18 10/20/18 10/20/18 04:51 05:00 05:11 Temperature Pulse Rate 108 H 107 H 108 H Pulse Rate [ Bilateral] Pulse Rate [ From Monitor] Respiratory 17 18 18 Rate Respiratory Rate [Bilateral ] Blood Pressure 106/68 114/67 114/67 O2 Sat by Pulse 94 93 95 Oximetry 10/20/18 10/20/18 10/20/18 05:21 05:30 05:41 Temperature Pulse Rate 107 H 107 H 106 H Pulse Rate [ Bilateral] Pulse Rate [ From Monitor] Respiratory 23 16 20 Rate Respiratory Rate [Bilateral ] Blood Pressure 111/69 106/66 106/66 O2 Sat by Pulse 94 93 95 Oximetry 10/20/18 10/20/18 10/20/18 05:51 06:00 06:11 Temperature Pulse Rate 106 H 107 H 106 H Pulse Rate [ Bilateral] Pulse Rate [ From Monitor] Respiratory 20 18 17 Rate Respiratory Rate [Bilateral ] Blood Pressure 106/66 114/68 114/68 O2 Sat by Pulse 95 95 95 Oximetry 10/20/18 10/20/18 10/20/18 06:21 06:30 06:41 Temperature Pulse Rate 108 H 106 H 107 H Pulse Rate [ Bilateral] Pulse Rate [ From Monitor] Respiratory 20 17 15 Rate Respiratory Rate [Bilateral ] Blood Pressure 109/69 113/70 113/70 O2 Sat by Pulse 95 94 95 Oximetry 10/20/18 10/20/18 10/20/18 06:51 07:00 07:11 Temperature Pulse Rate 106 H 105 H 107 H Pulse Rate [ Bilateral] Pulse Rate [ From Monitor] Respiratory 17 19 20 Rate Respiratory Rate [Bilateral ] Blood Pressure 116/71 120/69 120/69 O2 Sat by Pulse 95 93 94 Oximetry 10/20/18 10/20/18 10/20/18 07:21 07:30 07:41 Temperature Pulse Rate 109 H 105 H 108 H Pulse Rate [ Bilateral] Pulse Rate [ From Monitor] Respiratory 19 15 19 Rate Respiratory Rate [Bilateral ] Blood Pressure 117/70 111/68 111/68 O2 Sat by Pulse 94 93 94 Oximetry 05/10/19 05/10/19 05/10/19 07:51 08:00 08:11 Temperature 97.4 F L Pulse Rate 108 H 107 H 105 H Pulse Rate [ Bilateral] Pulse Rate [ From Monitor] Respiratory 16 16 15 Rate Respiratory Rate [Bilateral ] Blood Pressure 120/69 111/69 111/69 O2 Sat by Pulse 94 93 94 Oximetry 10/20/18 10/20/18 10/20/18 08:21 08:30 08:41 Temperature Pulse Rate 106 H 107 H 107 H Pulse Rate [ Bilateral] Pulse Rate [ From Monitor] Respiratory 13 15 16 Rate Respiratory Rate [Bilateral ] Blood Pressure 114/72 117/71 117/71 O2 Sat by Pulse 93 93 94 Oximetry 10/20/18 10/20/18 10/20/18 08:51 08:56 09:00 Temperature Pulse Rate 106 H 106 H Pulse Rate [ 113 H Bilateral] Pulse Rate [ From Monitor] Respiratory 14 16 Rate Respiratory 22 Rate [Bilateral ] Blood Pressure 111/69 112/69 O2 Sat by Pulse 94 93 93 Oximetry 10/20/18 10/20/18 10/20/18 09:10 09:11 09:21 Temperature Pulse Rate 105 H 108 H Pulse Rate [ 107 H Bilateral] Pulse Rate [ From Monitor] Respiratory 19 20 Rate Respiratory 24 Rate [Bilateral ] Blood Pressure 112/69 111/66 O2 Sat by Pulse 92 92 Oximetry 10/20/18 10/20/18 10/20/18 09:30 09:41 09:51 Temperature Pulse Rate 110 H 107 H 109 H Pulse Rate [ Bilateral] Pulse Rate [ From Monitor] Respiratory 20 18 19 Rate Respiratory Rate [Bilateral ] Blood Pressure 108/69 108/69 106/64 O2 Sat by Pulse 91 93 92 Oximetry 10/20/18 10/20/18 10/20/18 10:00 10:11 10:21 Temperature Pulse Rate 109 H 101 H 108 H Pulse Rate [ Bilateral] Pulse Rate [ From Monitor] Respiratory 18 17 19 Rate Respiratory Rate [Bilateral ] Blood Pressure 107/70 107/70 118/73 O2 Sat by Pulse 92 93 92 Oximetry 10/20/18 10/20/18 10/20/18 10:30 10:41 10:51 Temperature Pulse Rate 109 H 108 H 110 H Pulse Rate [ Bilateral] Pulse Rate [ From Monitor] Respiratory 20 18 19 Rate Respiratory Rate [Bilateral ] Blood Pressure 126/73 126/73 123/70 O2 Sat by Pulse 92 86 86 Oximetry 10/20/18 10/20/18 10/20/18 11:00 11:11 11:21 Temperature Pulse Rate 111 H 111 H 111 H Pulse Rate [ Bilateral] Pulse Rate [ From Monitor] Respiratory 21 17 17 Rate Respiratory Rate [Bilateral ] Blood Pressure 118/66 118/66 112/66 O2 Sat by Pulse 85 86 85 Oximetry 10/20/18 10/20/18 10/20/18 11:30 11:41 11:51 Temperature Pulse Rate 108 H 111 H 110 H Pulse Rate [ Bilateral] Pulse Rate [ From Monitor] Respiratory 18 23 16 Rate Respiratory Rate [Bilateral ] Blood Pressure 110/68 110/68 116/68 O2 Sat by Pulse 92 94 94 Oximetry 10/20/18 10/20/18 10/20/18 12:00 12:11 12:20 Temperature 96.8 F L Pulse Rate 109 H 109 H 110 H Pulse Rate [ Bilateral] Pulse Rate [ From Monitor] Respiratory 16 16 18 Rate Respiratory Rate [Bilateral ] Blood Pressure 110/69 110/69 106/78 O2 Sat by Pulse 94 92 95 Oximetry 10/20/18 10/20/18 10/20/18 12:30 12:40 12:50 Temperature Pulse Rate 109 H 110 H 108 H Pulse Rate [ Bilateral] Pulse Rate [ From Monitor] Respiratory 19 22 18 Rate Respiratory Rate [Bilateral ] Blood Pressure 106/78 117/73 O2 Sat by Pulse 94 94 95 Oximetry 10/20/18 10/20/18 10/20/18 13:00 13:10 13:20 Temperature Pulse Rate 107 H 108 H 109 H Pulse Rate [ Bilateral] Pulse Rate [ From Monitor] Respiratory 14 18 21 Rate Respiratory Rate [Bilateral ] Blood Pressure 113/71 113/71 116/71 O2 Sat by Pulse 94 94 95 Oximetry 10/20/18 10/20/18 10/20/18 13:30 13:40 13:50 Temperature Pulse Rate 107 H 107 H 105 H Pulse Rate [ Bilateral] Pulse Rate [ From Monitor] Respiratory 16 15 16 Rate Respiratory Rate [Bilateral ] Blood Pressure 113/70 113/70 116/71 O2 Sat by Pulse 93 94 96 Oximetry 10/20/18 10/20/18 14:48 15:02 Temperature Pulse Rate Pulse Rate [ 106 H 118 H Bilateral] Pulse Rate [ From Monitor] Respiratory Rate Respiratory 19 17 Rate [Bilateral ] Blood Pressure O2 Sat by Pulse Oximetry - Lab 10/18/18 00:50 05/10/19 06:06 Most recent lab results Calcium 7.8 mg/dL (8.4-10.2) L 10/20/18 06:06 Phosphorus 3.40 mg/dL (2.5-4.5) 10/18/18 16:41 Magnesium 2.10 mg/dL (1.7-2.3) 10/19/18 05:02 36.3 mg/dL (0.1-20.0) H 10/17/18 19:45 46 mmol/L 10/17/18 19:45 49 mg/dL (5-11.8) H 10/17/18 19:45 Medications & Allergies - Medications Allergies/Adverse Reactions: Allergies No Known Allergies Allergy (Verified 08/27/18 10:38) Home Medications: Home Medications Medication Instructions Recorded Confirmed Last Taken Type Acetylcysteine 20% Oral [Mucomyst 3 ml INTRATRACH Q6H 03/28/18 03/28/18 Unknown History Oral] Aspirin [Aspirin TAB] 325 mg FEEDTUBE DAILY 03/28/18 03/28/18 Unknown History Atorvastatin Calcium [Lipitor] 20 mg FEEDTUBE HS 03/28/18 03/28/18 Unknown History Bisacodyl [Bisac-Evac] 10 mg RC DAILY PRN 03/28/18 03/28/18 Unknown History Cholecalciferol (Vitamin D3) 2,000 unit FEEDTUBE QAM 03/28/18 03/28/18 Unknown History [Vitamin D3] Docusate Sodium [Move It Along] 100 mg FEEDTUBE Q12H PRN 03/28/18 03/28/18 Unknown History Doxazosin Mesylate [Cardura] 1 mg FEEDTUBE HS 03/28/18 03/28/18 Unknown History Ergocalciferol [Vitamin D2] 1 cap FEEDTUBE QWEEK 03/28/18 03/28/18 Unknown History Gabapentin [Neurontin] 300 mg FEEDTUBE HS 03/28/18 03/28/18 Unknown History Haloperidol Decanoate [Haldol 50 mg IM Q4W 03/28/18 03/28/18 Unknown History Decanoate] Haloperidol Lactate [Haldol] 0.4 ml IM Q8H PRN 03/28/18 03/28/18 Unknown History Ipratropium/Albuterol Sulfate 1 ampul IH Q4HR 03/28/18 03/28/18 Unknown History [DUONEB *Not for PRN Use*] Polyethylene Glycol 3350 17 gm FEEDTUBE DAILY PRN 03/28/18 03/28/18 Unknown History [Smoothlax] Quetiapine Fumarate [Seroquel] 100 mg FEEDTUBE Q8H 03/28/18 03/28/18 Unknown History Scopolamine [Transderm-Scop] 1 each TD Q72H 03/28/18 03/28/18 Unknown History Sennosides [Senna Laxative] 17.2 mg FEEDTUBE HS 03/28/18 03/28/18 Unknown History lamiVUDine [Lamivudine] 30 ml FEEDTUBE QAM 03/28/18 03/28/18 Unknown History traMADol [Ultram 50 MG tab] 50 mg FEEDTUBE TID #10 tablet 03/31/18 Unknown Rx Bacitracin Zinc Oint [Antibiotic 1 applicatio TP BID #1 tube 08/22/18 Unknown Rx Oint] ALBUTEROL NEB's [Proventil 0.083% 2.5 mg IH Q4HRT PRN nebu 09/01/18 Unknown Rx NEBS] Amoxicillin/K Clav Tab [Augmentin 875 each PO Q12HR #14 tablet 09/01/18 Unknown Rx 875MG TAB] Darunavir [Prezista] 800 mg PO QDAY tablet 09/01/18 Unknown Rx FLUoxetine [Prozac] 40 mg PO QDAY oral.liqd 09/01/18 Unknown Rx Famotidine [Pepcid] 20 mg PO BID tablet 09/01/18 Unknown Rx Levothyroxine [Synthroid] 50 mcg PO DAILY@0600 tablet 09/01/18 Unknown Rx Metoprolol [Lopressor TAB] 12.5 mg PO BID tablet 09/01/18 Unknown Rx Ritonavir [Norvir] 100 mg PO DAILY tab 09/01/18 Unknown Rx Tenofovir [Viread] 300 mg PO QDAY tablet 09/01/18 Unknown Rx Active Medications: Generic Name Dose Route Start Last Admin Trade Name Freq PRN Reason Stop Dose Admin Acetaminophen 650 mg 10/15/18 03:28 Tylenol PO Q4H PRN Pain MILD(1-3)/Fever >100.5/DELGADO Albuterol 2.5 mg 10/16/18 10:30 Proventil IH Q4HRT PRN Shortness Of Breath Albuterol/Ipratropium 1 ampul 10/15/18 14:00 10/20/18 14:46 Duoneb *Not For Prn Use* IH 1 ampul Q6HRT BLOSSOM Administration Lipase/Protease/Amylase 1 each 10/16/18 16:25 Pancrejoan Lema 10,500 Unit FEEDTUBE PRN PRN For Clogged Feeding Tube Aspirin 325 mg 10/17/18 10:00 10/20/18 10:04 Aspirin FEEDTUBE 325 mg DAILY BLOSSOM Administration Atorvastatin Calcium 20 mg 10/16/18 22:00 10/19/18 21:37 Lipitor FEEDTUBE 20 mg HS BLOSSOM Administration Atovaquone 750 mg 10/19/18 16:00 10/20/18 10:18 Mepron PO 750 mg BID BLOSSOM Administration Bisacodyl 10 mg 10/16/18 10:30 Dulcolax MT DAILY PRN Constipation Budesonide 0.5 mg 10/15/18 20:00 10/20/18 08:52 Pulmicort IH 0.5 mg Q12HRT BLOSSOM Administration Cholecalciferol 2,000 unit 10/17/18 10:00 10/20/18 10:02 Vitamin D3 FEEDTUBE 2,000 unit QAM BLOSSOM Administration Darunavir 800 mg 10/19/18 13:00 10/20/18 10:04 Prezista PO 800 mg QDAY BLOSSOM Administration Docusate Sodium 100 mg 10/16/18 10:30 Colace FEEDTUBE Q12H PRN Constipation/STOOL SOFTENER Famotidine 20 mg 10/15/18 10:00 10/20/18 10:03 Pepcid IV 20 mg QAM BLOSSOM Administration Fluoxetine HCl 40 mg 10/17/18 10:00 10/20/18 10:03 Prozac PO 40 mg QDAY BLOSSOM Administration Norepinephrine 4 mg in 250 mls @ 7.5 mls/hr 10/15/18 13:00 10/18/18 04:45 Levophed Drip 4 Mg/Ns 250 Ml IV 4 mcg/min TITR BLOSSOM 15 mls/hr Administration Protocol 2 MCG/MIN Cefazolin Sodium 2 gm/ Sodium 100 mls @ 100 mls/hr 10/18/18 12:00 10/20/18 10:04 Chloride IV 100 mls/hr Q24HR BLOSSOM Administration Sodium Chloride 1,000 mls @ 100 mls/hr 10/18/18 22:00 Nacl 0.45% 1000 Ml IV DIRECT BLOSSOM Lamivudine 100 mg 10/20/18 10:00 10/20/18 10:03 Epivir PO 100 mg DAILY BLOSSOM Administration Levothyroxine Sodium 75 mcg 10/18/18 06:00 10/20/18 06:12 Synthroid PO 75 mcg DAILY@0600 BLOSSOM Administration Methylprednisolone Sodium Succinate 40 mg 10/16/18 14:00 10/20/18 13:43 Solu-Medrol IV 40 mg Q8HR BLOSSOM Administration Morphine Sulfate 2 mg 10/15/18 03:28 Morphine IV Q4H PRN Pain, Moderate (4-6) Ondansetron HCl 4 mg 10/15/18 03:28 Zofran IV Q8H PRN Nausea And Vomiting Polyethylene Glycol 17 gm 10/16/18 10:30 Miralax 3350 FEEDTUBE DAILY PRN Constipation Quetiapine Fumarate 100 mg 10/16/18 11:00 10/20/18 06:13 Seroquel FEEDTUBE Not Given Q8H BLOSSOM Ritonavir 100 mg 10/19/18 12:00 10/20/18 10:18 Norvir PO 100 mg DAILY BLOSSOM Administration Scopolamine 1 each 10/16/18 11:00 10/19/18 10:10 Transderm-Scop TD 1 each Q72H BLOSSOM Administration Senna 17.2 mg 10/16/18 22:00 10/19/18 21:37 Senokot FEEDTUBE 17.2 mg HS BLOSSOM Administration Simple Syrup 15 ml 10/16/18 16:25 Simple Syrup FEEDTUBE PRN PRN Hypoglycemia Simple Syrup 30 ml 10/16/18 16:25 Simple Syrup FEEDTUBE PRN PRN Hypoglycemia Sodium Bicarbonate 325 mg 10/16/18 16:25 Sodium Bicarbonate FEEDTUBE PRN PRN For Clogged Feeding Tube Sodium Chloride 10 ml 10/15/18 10:00 10/20/18 10:03 Sodium Chloride Flush Syringe 10 Ml IV 10 ml BID BLOSSOM Administration Sodium Chloride 10 ml 10/15/18 03:28 Sodium Chloride Flush Syringe 10 Ml IV PRN PRN LINE FLUSH Tenofovir Disoproxil Fumarate 300 mg 10/19/18 13:00 10/19/18 14:00 Viread PO 300 mg Q96H BLOSSOM Administration
[2018-10-20] MEDS: SENOKOT FEEDTUBE SCH (22:56)
[2018-10-21] MEDS: DUONEB *Not for PRN Use IH SCH ×4 (02:04→19:41)
[2018-10-21] MEDS: SOLU-Medrol IV SCH ×3 (05:23→21:06)
[2018-10-21] MEDS: SYNTHROID PO SCH (05:23)
[2018-10-21 05:30] LABS: Calcium 8.5 mg/dL (8.4-10.2)
--- NOTE | 2018-10-21 08:20 | Progress Note ---
Assessment and Plan - Patient Problems (1) Acute kidney failure with tubular necrosis Current Visit: Yes Status: Acute Plan to address problem: renal function slowly improving, cont current supportive care for ATN (2) Hypernatremia Current Visit: Yes Status: Acute Plan to address problem: Significant free water deficit. Sodium improving with free water replacement. Continue free water and follow up Sodium (3) Acute and chronic respiratory failure with hypoxia Current Visit: Yes Status: Acute Plan to address problem: Management by pulmonary (4) HCAP (healthcare-associated pneumonia) Current Visit: Yes Status: Acute Plan to address problem: Continue antibiotics appropriately dosed to the degree of kidney function. Follow cultures (5) HIV (human immunodeficiency virus infection) Current Visit: Yes Status: Chronic Qualifiers: Plan to address problem: Continue antiretrovirals and f/u with infectious disease (6) Encephalopathy Current Visit: Yes Status: Acute Subjective Date of service: 10/21/18 Principal diagnosis: Ac Hypoxemic Resp Failure; Pneumonia (HAP); Acute encephalopathy ; HIV/AIDS Interval history: Pt awake, opening eyes, no acute respiratory distress. Objective - Vital Signs Vital signs: Vital Signs - 12hr 10/20/18 10/20/18 10/20/18 20:20 20:30 20:40 Temperature Pulse Rate 109 H 107 H 110 H Pulse Rate [ Bilateral] Pulse Rate [ From Monitor] Respiratory 20 19 14 Rate Respiratory Rate [Bilateral ] Blood Pressure 107/65 109/67 109/67 O2 Sat by Pulse 94 95 Oximetry 10/20/18 10/20/18 10/20/18 20:50 20:55 20:58 Temperature 97.9 F Pulse Rate 105 H Pulse Rate [ Bilateral] Pulse Rate [ From Monitor] Respiratory 17 Rate Respiratory Rate [Bilateral ] Blood Pressure 109/68 O2 Sat by Pulse 94 96 Oximetry 10/20/18 10/20/18 10/20/18 21:00 21:10 21:20 Temperature Pulse Rate 103 H 105 H 105 H Pulse Rate [ 102 H Bilateral] Pulse Rate [ From Monitor] Respiratory 14 21 17 Rate Respiratory 18 Rate [Bilateral ] Blood Pressure 103/66 109/67 104/64 O2 Sat by Pulse 96 96 Oximetry 10/20/18 10/20/18 10/20/18 21:30 21:33 21:40 Temperature Pulse Rate 108 H 107 H Pulse Rate [ 105 H Bilateral] Pulse Rate [ From Monitor] Respiratory 18 19 Rate Respiratory 18 Rate [Bilateral ] Blood Pressure 91/61 104/64 O2 Sat by Pulse 97 99 Oximetry 10/20/18 10/20/18 10/20/18 21:50 22:00 22:10 Temperature Pulse Rate 105 H 105 H 106 H Pulse Rate [ Bilateral] Pulse Rate [ From Monitor] Respiratory 18 19 19 Rate Respiratory Rate [Bilateral ] Blood Pressure 101/59 104/60 104/60 O2 Sat by Pulse 98 98 99 Oximetry 10/20/18 10/20/18 10/20/18 22:20 22:30 22:40 Temperature Pulse Rate 106 H 105 H 105 H Pulse Rate [ Bilateral] Pulse Rate [ From Monitor] Respiratory 17 16 20 Rate Respiratory Rate [Bilateral ] Blood Pressure 101/60 109/63 109/63 O2 Sat by Pulse 99 99 97 Oximetry 10/20/18 10/20/18 10/20/18 22:50 23:00 23:04 Temperature Pulse Rate 104 H 104 H 104 H Pulse Rate [ Bilateral] Pulse Rate [ From Monitor] Respiratory 20 22 21 Rate Respiratory Rate [Bilateral ] Blood Pressure 98/62 110/63 110/63 O2 Sat by Pulse 97 96 96 Oximetry 10/20/18 10/20/18 10/20/18 23:10 23:20 23:30 Temperature Pulse Rate 105 H 103 H 103 H Pulse Rate [ Bilateral] Pulse Rate [ From Monitor] Respiratory 21 22 19 Rate Respiratory Rate [Bilateral ] Blood Pressure 110/63 104/62 102/61 O2 Sat by Pulse 95 95 95 Oximetry 10/20/18 10/20/18 10/21/18 23:40 23:50 00:00 Temperature 97.7 F Pulse Rate 101 H 102 H 102 H Pulse Rate [ Bilateral] Pulse Rate [ 100 H From Monitor] Respiratory 19 16 15 Rate Respiratory Rate [Bilateral ] Blood Pressure 104/62 98/61 101/60 O2 Sat by Pulse 94 96 96 Oximetry 10/21/18 10/21/18 10/21/18 00:10 00:20 00:30 Temperature Pulse Rate 103 H 101 H 104 H Pulse Rate [ Bilateral] Pulse Rate [ From Monitor] Respiratory 18 21 20 Rate Respiratory Rate [Bilateral ] Blood Pressure 101/60 104/60 100/62 O2 Sat by Pulse 97 98 97 Oximetry 10/21/18 10/21/18 10/21/18 00:40 00:50 01:00 Temperature Pulse Rate 102 H 101 H 101 H Pulse Rate [ Bilateral] Pulse Rate [ From Monitor] Respiratory 18 17 19 Rate Respiratory Rate [Bilateral ] Blood Pressure 104/60 102/59 106/61 O2 Sat by Pulse 98 98 98 Oximetry 10/21/18 10/21/18 10/21/18 01:10 01:20 01:30 Temperature Pulse Rate 100 H 100 H 100 H Pulse Rate [ Bilateral] Pulse Rate [ From Monitor] Respiratory 17 18 18 Rate Respiratory Rate [Bilateral ] Blood Pressure 102/59 100/62 102/64 O2 Sat by Pulse 98 98 Oximetry 10/21/18 10/21/18 10/21/18 01:40 01:50 02:00 Temperature Pulse Rate 100 H 100 H 100 H Pulse Rate [ Bilateral] Pulse Rate [ From Monitor] Respiratory 17 20 16 Rate Respiratory Rate [Bilateral ] Blood Pressure 102/64 103/63 98/59 O2 Sat by Pulse 98 98 97 Oximetry 10/21/18 10/21/18 10/21/18 02:04 02:10 02:15 Temperature Pulse Rate 106 H Pulse Rate [ 100 H 101 H Bilateral] Pulse Rate [ From Monitor] Respiratory 23 Rate Respiratory 17 19 Rate [Bilateral ] Blood Pressure 98/59 O2 Sat by Pulse 97 Oximetry 10/21/18 10/21/18 10/21/18 02:20 02:30 02:40 Temperature Pulse Rate 101 H 105 H 105 H Pulse Rate [ Bilateral] Pulse Rate [ From Monitor] Respiratory 18 17 17 Rate Respiratory Rate [Bilateral ] Blood Pressure 100/61 95/55 100/61 O2 Sat by Pulse 97 96 96 Oximetry 10/21/18 10/21/18 10/21/18 02:50 03:00 03:10 Temperature Pulse Rate 103 H 104 H 102 H Pulse Rate [ Bilateral] Pulse Rate [ From Monitor] Respiratory 22 18 17 Rate Respiratory Rate [Bilateral ] Blood Pressure 104/61 96/56 96/56 O2 Sat by Pulse 96 96 Oximetry 10/21/18 10/21/18 10/21/18 03:20 03:30 03:40 Temperature Pulse Rate 103 H 103 H 102 H Pulse Rate [ Bilateral] Pulse Rate [ From Monitor] Respiratory 24 18 16 Rate Respiratory Rate [Bilateral ] Blood Pressure 102/57 93/58 102/57 O2 Sat by Pulse 96 98 Oximetry 10/21/18 10/21/18 10/21/18 03:50 04:00 04:10 Temperature 97.5 F L Pulse Rate 101 H 99 H 101 H Pulse Rate [ Bilateral] Pulse Rate [ 97 H From Monitor] Respiratory 16 15 19 Rate Respiratory Rate [Bilateral ] Blood Pressure 100/59 100/59 101/62 O2 Sat by Pulse 98 97 98 Oximetry 10/21/18 10/21/18 10/21/18 04:20 04:30 04:40 Temperature Pulse Rate 103 H 99 H 100 H Pulse Rate [ Bilateral] Pulse Rate [ From Monitor] Respiratory 18 18 18 Rate Respiratory Rate [Bilateral ] Blood Pressure 96/59 99/57 99/57 O2 Sat by Pulse 97 98 98 Oximetry 10/21/18 10/21/18 10/21/18 04:50 05:00 05:10 Temperature Pulse Rate 99 H 101 H 99 H Pulse Rate [ Bilateral] Pulse Rate [ From Monitor] Respiratory 15 20 18 Rate Respiratory Rate [Bilateral ] Blood Pressure 100/59 93/60 93/60 O2 Sat by Pulse 97 97 98 Oximetry 10/21/18 10/21/18 10/21/18 05:20 05:30 05:40 Temperature Pulse Rate 100 H 99 H 98 H Pulse Rate [ Bilateral] Pulse Rate [ From Monitor] Respiratory 20 22 17 Rate Respiratory Rate [Bilateral ] Blood Pressure 101/62 104/61 104/61 O2 Sat by Pulse 98 98 97 Oximetry 10/21/18 10/21/18 10/21/18 05:50 06:00 06:10 Temperature Pulse Rate 97 H 100 H 97 H Pulse Rate [ Bilateral] Pulse Rate [ From Monitor] Respiratory 17 20 17 Rate Respiratory Rate [Bilateral ] Blood Pressure 98/58 102/60 102/60 O2 Sat by Pulse 97 98 98 Oximetry 10/21/18 06:20 Temperature Pulse Rate 97 H Pulse Rate [ Bilateral] Pulse Rate [ From Monitor] Respiratory 17 Rate Respiratory Rate [Bilateral ] Blood Pressure 94/60 O2 Sat by Pulse 98 Oximetry - General Appearance General appearance: appears stated age, chronically ill, frail EENT: ATNC, PERRL, mucous membranes dry Neck: no JVD Respiratory: Present: Clear to Ascultation Cardiology: regular, S1S2 Gastrointestinal: normoactive bowel sounds Integumentary: no rash Neurologic: no focal deficit, CN 3-12 intact - Lab 10/18/18 00:50 10/21/18 04:44 Most recent lab results Calcium 8.5 mg/dL (8.4-10.2) 10/21/18 04:44 Phosphorus 3.40 mg/dL (2.5-4.5) 10/18/18 16:41 Magnesium 2.10 mg/dL (1.7-2.3) 10/19/18 05:02 36.3 mg/dL (0.1-20.0) H 10/17/18 19:45 46 mmol/L 10/17/18 19:45 49 mg/dL (5-11.8) H 10/17/18 19:45 Medications & Allergies - Medications Allergies/Adverse Reactions: Allergies No Known Allergies Allergy (Verified 08/27/18 10:38) Home Medications: Home Medications Medication Instructions Recorded Confirmed Last Taken Type Acetylcysteine 20% Oral [Mucomyst 3 ml INTRATRACH Q6H 03/28/18 03/28/18 Unknown History Oral] Aspirin [Aspirin TAB] 325 mg FEEDTUBE DAILY 03/28/18 03/28/18 Unknown History Atorvastatin Calcium [Lipitor] 20 mg FEEDTUBE HS 03/28/18 03/28/18 Unknown History Bisacodyl [Bisac-Evac] 10 mg RC DAILY PRN 03/28/18 03/28/18 Unknown History Cholecalciferol (Vitamin D3) 2,000 unit FEEDTUBE QAM 03/28/18 03/28/18 Unknown History [Vitamin D3] Docusate Sodium [Move It Along] 100 mg FEEDTUBE Q12H PRN 03/28/18 03/28/18 Unknown History Doxazosin Mesylate [Cardura] 1 mg FEEDTUBE HS 03/28/18 03/28/18 Unknown History Ergocalciferol [Vitamin D2] 1 cap FEEDTUBE QWEEK 03/28/18 03/28/18 Unknown History Gabapentin [Neurontin] 300 mg FEEDTUBE HS 03/28/18 03/28/18 Unknown History Haloperidol Decanoate [Haldol 50 mg IM Q4W 03/28/18 03/28/18 Unknown History Decanoate] Haloperidol Lactate [Haldol] 0.4 ml IM Q8H PRN 03/28/18 03/28/18 Unknown History Ipratropium/Albuterol Sulfate 1 ampul IH Q4HR 03/28/18 03/28/18 Unknown History [DUONEB *Not for PRN Use*] Polyethylene Glycol 3350 17 gm FEEDTUBE DAILY PRN 03/28/18 03/28/18 Unknown History [Smoothlax] Quetiapine Fumarate [Seroquel] 100 mg FEEDTUBE Q8H 03/28/18 03/28/18 Unknown History Scopolamine [Transderm-Scop] 1 each TD Q72H 03/28/18 03/28/18 Unknown History Sennosides [Senna Laxative] 17.2 mg FEEDTUBE HS 03/28/18 03/28/18 Unknown History lamiVUDine [Lamivudine] 30 ml FEEDTUBE QAM 03/28/18 03/28/18 Unknown History traMADol [Ultram 50 MG tab] 50 mg FEEDTUBE TID #10 tablet 03/31/18 Unknown Rx Bacitracin Zinc Oint [Antibiotic 1 applicatio TP BID #1 tube 08/22/18 Unknown Rx Oint] ALBUTEROL NEB's [Proventil 0.083% 2.5 mg IH Q4HRT PRN nebu 09/01/18 Unknown Rx NEBS] Amoxicillin/K Clav Tab [Augmentin 875 each PO Q12HR #14 tablet 09/01/18 Unknown Rx 875MG TAB] Darunavir [Prezista] 800 mg PO QDAY tablet 09/01/18 Unknown Rx FLUoxetine [Prozac] 40 mg PO QDAY oral.liqd 09/01/18 Unknown Rx Famotidine [Pepcid] 20 mg PO BID tablet 09/01/18 Unknown Rx Levothyroxine [Synthroid] 50 mcg PO DAILY@0600 tablet 09/01/18 Unknown Rx Metoprolol [Lopressor TAB] 12.5 mg PO BID tablet 09/01/18 Unknown Rx Ritonavir [Norvir] 100 mg PO DAILY tab 09/01/18 Unknown Rx Tenofovir [Viread] 300 mg PO QDAY tablet 09/01/18 Unknown Rx Active Medications: Generic Name Dose Route Start Last Admin Trade Name Freq PRN Reason Stop Dose Admin Acetaminophen 650 mg 10/15/18 03:28 Tylenol PO Q4H PRN Pain MILD(1-3)/Fever >100.5/DELGADO Albuterol 2.5 mg 10/16/18 10:30 Proventil IH Q4HRT PRN Shortness Of Breath Albuterol/Ipratropium 1 ampul 10/15/18 14:00 10/21/18 02:04 Duoneb *Not For Prn Use* IH 1 ampul Q6HRT BLOSSOM Administration Lipase/Protease/Amylase 1 each 10/16/18 16:[address] 10,500 Unit FEEDTUBE PRN PRN For Clogged Feeding Tube Aspirin 325 mg 10/17/18 10:00 10/20/18 10:04 Aspirin FEEDTUBE 325 mg DAILY BLOSSOM Administration Atorvastatin Calcium 20 mg 10/16/18 22:00 10/20/18 22:56 Lipitor FEEDTUBE 20 mg HS BLOSSOM Administration Atovaquone 750 mg 10/19/18 16:00 10/20/18 22:57 Mepron PO 750 mg BID BLOSSOM Administration Bisacodyl 10 mg 10/16/18 10:30 Dulcolax AK DAILY PRN Constipation Budesonide 0.5 mg 10/15/18 20:00 10/20/18 20:58 Pulmicort IH 0.5 mg Q12HRT BLOSSOM Administration Cholecalciferol 2,000 unit 10/17/18 10:00 10/20/18 10:02 Vitamin D3 FEEDTUBE 2,000 unit QAM BLOSSOM Administration Darunavir 800 mg 10/19/18 13:00 10/20/18 10:04 Prezista PO 800 mg QDAY BLOSSOM Administration Docusate Sodium 100 mg 10/16/18 10:30 Colace FEEDTUBE Q12H PRN Constipation/STOOL SOFTENER Famotidine 20 mg 10/15/18 10:00 10/20/18 10:03 Pepcid IV 20 mg QAM BLOSSOM Administration Fluoxetine HCl 40 mg 10/17/18 10:00 10/20/18 10:03 Prozac PO 40 mg QDAY BLOSSOM Administration Norepinephrine 4 mg in 250 mls @ 7.5 mls/hr 10/15/18 13:00 10/18/18 04:45 Levophed Drip 4 Mg/Ns 250 Ml IV 4 mcg/min TITR BLOSSOM 15 mls/hr Administration Protocol 2 MCG/MIN Cefazolin Sodium 2 gm/ Sodium 100 mls @ 100 mls/hr 10/18/18 12:00 10/20/18 10:04 Chloride IV 100 mls/hr Q24HR BLOSSOM Administration Sodium Chloride 1,000 mls @ 100 mls/hr 10/18/18 22:00 Nacl 0.45% 1000 Ml IV DIRECT BLOSSOM Lamivudine 100 mg 10/20/18 10:00 10/20/18 10:03 Epivir PO 100 mg DAILY BLOSSOM Administration Levothyroxine Sodium 75 mcg 10/18/18 06:00 10/21/18 05:23 Synthroid PO 75 mcg DAILY@0600 BLOSSOM Administration Methylprednisolone Sodium Succinate 40 mg 10/16/18 14:00 10/21/18 05:23 Solu-Medrol IV 40 mg Q8HR BLOSSOM Administration Morphine Sulfate 2 mg 10/15/18 03:28 Morphine IV Q4H PRN Pain, Moderate (4-6) Ondansetron HCl 4 mg 10/15/18 03:28 Zofran IV Q8H PRN Nausea And Vomiting Polyethylene Glycol 17 gm 10/16/18 10:30 Miralax 3350 FEEDTUBE DAILY PRN Constipation Quetiapine Fumarate 100 mg 10/16/18 11:00 10/21/18 05:23 Seroquel FEEDTUBE Not Given Q8H BLOSSOM Ritonavir 100 mg 10/19/18 12:00 10/20/18 10:18 Norvir PO 100 mg DAILY BLOSSOM Administration Scopolamine 1 each 10/16/18 11:00 10/19/18 10:10 Transderm-Scop TD 1 each Q72H BLOSSOM Administration Senna 17.2 mg 10/16/18 22:00 10/20/18 22:56 Senokot FEEDTUBE 17.2 mg HS BLOSSOM Administration Simple Syrup 15 ml 10/16/18 16:25 Simple Syrup FEEDTUBE PRN PRN Hypoglycemia Simple Syrup 30 ml 10/16/18 16:25 Simple Syrup FEEDTUBE PRN PRN Hypoglycemia Sodium Bicarbonate 325 mg 10/16/18 16:25 Sodium Bicarbonate FEEDTUBE PRN PRN For Clogged Feeding Tube Sodium Chloride 10 ml 10/15/18 10:00 10/20/18 22:57 Sodium Chloride Flush Syringe 10 Ml IV 10 ml BID BLOSSOM Administration Sodium Chloride 10 ml 10/15/18 03:28 Sodium Chloride Flush Syringe 10 Ml IV PRN PRN LINE FLUSH Tenofovir Disoproxil Fumarate 300 mg 10/19/18 13:00 10/19/18 14:00 Viread PO 300 mg Q96H BLOSSOM Administration
[2018-10-21] MEDS: PULMICORT IH SCH ×2 (09:45→19:41)
[2018-10-21] MEDS: ceFAZolin 2 GM in NACL 0.9% 100 ML IV SCH (10:06)
[2018-10-21] MEDS: EPIVIR PO SCH (10:07)
[2018-10-21] MEDS: MEPRON PO SCH ×2 (10:07→21:05)
[2018-10-21] MEDS: PROzac PO SCH (10:07)
[2018-10-21] MEDS: SODIUM CHLORIDE FLUSH SYRINGE 10 ML IV SCH ×2 (10:08→21:05)
[2018-10-21] MEDS: NORVIR PO SCH (10:08)
[2018-10-21] MEDS: PREZISTA PO SCH (10:08)
[2018-10-21] MEDS: PEPCID IV SCH (10:08)
[2018-10-21] MEDS: VITAMIN D3 FEEDTUBE SCH (10:08)
[2018-10-21] MEDS: ASPIRIN FEEDTUBE SCH (10:08)
--- NOTE | 2018-10-21 10:25 | Progress Note ---
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 Acute renal failure (likely due to dehydration) H/O cocaine abuse Anemia (multi-factorial) - repeat CXR in am - continue bear hugger till normothermic - repeat CBC, lactate and CRP in am (re: worsening sepsis) - continue BIPAP scheduled qhs - continue aspiration precautions - continue bronchodilators with pulmonary hygiene per RT - prn levophed for target MAP > 65 mmHg - 2D ECHO shows severe pulmonary HTN; will see if can tolerate revatio prior to discharge - conservative volume strategies - continue free water flushes for hypernatremia - reduced solumedrol to 40 mg IV daily re: Azotemia - stopped Lovenox re: thrombocytopenia - continue enteral nutrition as tolerated - continue GI prophylaxis - nephrology evaluation ongoing - complete Anti-infectives per ID rec's - Monitor renal indices closely - Avoid nephrotoxic agents, adjust all medications for CrCL - Strict intake and output monitoring - Accuchecks with glycemic control. Target glucose of 140-180 mg/dL - Maintenance of sleep -wake cycle - Mobility as tolerated by hemodynamics - Influenza and pneumonia vaccination per protocol ..discussed in ICU-IDT rounds PROGNOSIS: GUARDED CONDITION: CRITICAL CODE STATUS: FULL CODE The high probability of a clinically significant, sudden or life-threatening deterioration of the [respiratory] system(s) required my full and direct att ention, intervention and personal management. The aggregate critical care time was [35] minutes without overlap. Time includes spent on; [x] Data Review and interpretation [x] Patient assessment and monitoring of vital signs [x] Documentation [x] Medication orders and management Subjective Date of service: 10/21/18 Principal diagnosis: Ac Hypoxemic Resp Failure; Pneumonia (HAP); Acute encephalopathy ; HIV/AIDS Interval history: Patient is seen today for: Acute Hypoxemic Respiratory Failure; Right midlung pneumonia (HAP); H/O Tracheostomy; COPD; Acute encephalopathy ; HIV/AIDS (viral load and CD4 unknown); H/o toxoplasmosis; H/o syphilitic encephalopathy Seen and examined at bedside; 24hour events reviewed; nursing and respiratory care staff consulted; no adverse overnight events reported to me; resting peacefully in bed; hypothermic earlier and now on warmer/ bear hugger; no emesis or overt aspiration reported; AMS is persistent Objective Vital Signs - 12hr 10/20/18 10/20/18 10/20/18 22:30 22:40 22:50 Temperature Pulse Rate 105 H 105 H 104 H Pulse Rate [ Bilateral] Pulse Rate [ From Monitor] Respiratory 16 20 20 Rate Respiratory Rate [Bilateral ] Blood Pressure 109/63 109/63 98/62 O2 Sat by Pulse 99 97 97 Oximetry 10/20/18 10/20/18 10/20/18 23:00 23:04 23:10 Temperature Pulse Rate 104 H 104 H 105 H Pulse Rate [ Bilateral] Pulse Rate [ From Monitor] Respiratory 22 21 21 Rate Respiratory Rate [Bilateral ] Blood Pressure 110/63 110/63 110/63 O2 Sat by Pulse 96 96 95 Oximetry 10/20/18 10/20/18 10/20/18 23:20 23:30 23:40 Temperature Pulse Rate 103 H 103 H 101 H Pulse Rate [ Bilateral] Pulse Rate [ From Monitor] Respiratory 22 19 19 Rate Respiratory Rate [Bilateral ] Blood Pressure 104/62 102/61 104/62 O2 Sat by Pulse 95 95 94 Oximetry 10/20/18 10/21/18 10/21/18 23:50 00:00 00:10 Temperature 97.7 F Pulse Rate 102 H 102 H 103 H Pulse Rate [ Bilateral] Pulse Rate [ 100 H From Monitor] Respiratory 16 15 18 Rate Respiratory Rate [Bilateral ] Blood Pressure 98/61 101/60 101/60 O2 Sat by Pulse 96 96 97 Oximetry 10/21/18 10/21/18 10/21/18 00:20 00:30 00:40 Temperature Pulse Rate 101 H 104 H 102 H Pulse Rate [ Bilateral] Pulse Rate [ From Monitor] Respiratory 21 20 18 Rate Respiratory Rate [Bilateral ] Blood Pressure 104/60 100/62 104/60 O2 Sat by Pulse 98 97 98 Oximetry 10/21/18 10/21/18 10/21/18 00:50 01:00 01:10 Temperature Pulse Rate 101 H 101 H 100 H Pulse Rate [ Bilateral] Pulse Rate [ From Monitor] Respiratory 17 19 17 Rate Respiratory Rate [Bilateral ] Blood Pressure 102/59 106/61 102/59 O2 Sat by Pulse 98 98 98 Oximetry 10/21/18 10/21/18 10/21/18 01:20 01:30 01:40 Temperature Pulse Rate 100 H 100 H 100 H Pulse Rate [ Bilateral] Pulse Rate [ From Monitor] Respiratory 18 18 17 Rate Respiratory Rate [Bilateral ] Blood Pressure 100/62 102/64 102/64 O2 Sat by Pulse 98 98 Oximetry 10/21/18 10/21/18 10/21/18 01:50 02:00 02:04 Temperature Pulse Rate 100 H 100 H Pulse Rate [ 100 H Bilateral] Pulse Rate [ From Monitor] Respiratory 20 16 Rate Respiratory 17 Rate [Bilateral ] Blood Pressure 103/63 98/59 O2 Sat by Pulse 98 97 Oximetry 10/21/18 10/21/18 10/21/18 02:10 02:15 02:20 Temperature Pulse Rate 106 H 101 H Pulse Rate [ 101 H Bilateral] Pulse Rate [ From Monitor] Respiratory 23 18 Rate Respiratory 19 Rate [Bilateral ] Blood Pressure 98/59 100/61 O2 Sat by Pulse 97 97 Oximetry 10/21/18 10/21/18 10/21/18 02:30 02:40 02:50 Temperature Pulse Rate 105 H 105 H 103 H Pulse Rate [ Bilateral] Pulse Rate [ From Monitor] Respiratory 17 17 22 Rate Respiratory Rate [Bilateral ] Blood Pressure 95/55 100/61 104/61 O2 Sat by Pulse 96 96 96 Oximetry 10/21/18 10/21/18 10/21/18 03:00 03:10 03:20 Temperature Pulse Rate 104 H 102 H 103 H Pulse Rate [ Bilateral] Pulse Rate [ From Monitor] Respiratory 18 17 24 Rate Respiratory Rate [Bilateral ] Blood Pressure 96/56 96/56 102/57 O2 Sat by Pulse 96 96 Oximetry 10/21/18 10/21/18 10/21/18 03:30 03:40 03:50 Temperature Pulse Rate 103 H 102 H 101 H Pulse Rate [ Bilateral] Pulse Rate [ From Monitor] Respiratory 18 16 16 Rate Respiratory Rate [Bilateral ] Blood Pressure 93/58 102/57 100/59 O2 Sat by Pulse 98 98 Oximetry 10/21/18 10/21/18 10/21/18 04:00 04:10 04:20 Temperature 97.5 F L Pulse Rate 99 H 101 H 103 H Pulse Rate [ Bilateral] Pulse Rate [ 97 H From Monitor] Respiratory 15 19 18 Rate Respiratory Rate [Bilateral ] Blood Pressure 100/59 101/62 96/59 O2 Sat by Pulse 97 98 97 Oximetry 10/21/18 10/21/18 10/21/18 04:30 04:40 04:50 Temperature Pulse Rate 99 H 100 H 99 H Pulse Rate [ Bilateral] Pulse Rate [ From Monitor] Respiratory 18 18 15 Rate Respiratory Rate [Bilateral ] Blood Pressure 99/57 99/57 100/59 O2 Sat by Pulse 98 98 97 Oximetry 10/21/18 10/21/18 10/21/18 05:00 05:10 05:20 Temperature Pulse Rate 101 H 99 H 100 H Pulse Rate [ Bilateral] Pulse Rate [ From Monitor] Respiratory 20 18 20 Rate Respiratory Rate [Bilateral ] Blood Pressure 93/60 93/60 101/62 O2 Sat by Pulse 97 98 98 Oximetry 10/21/18 10/21/18 10/21/18 05:30 05:40 05:50 Temperature Pulse Rate 99 H 98 H 97 H Pulse Rate [ Bilateral] Pulse Rate [ From Monitor] Respiratory 22 17 17 Rate Respiratory Rate [Bilateral ] Blood Pressure 104/61 104/61 98/58 O2 Sat by Pulse 98 97 97 Oximetry 10/21/18 10/21/18 10/21/18 06:00 06:10 06:20 Temperature Pulse Rate 100 H 97 H 97 H Pulse Rate [ Bilateral] Pulse Rate [ From Monitor] Respiratory 20 17 17 Rate Respiratory Rate [Bilateral ] Blood Pressure 102/60 102/60 94/60 O2 Sat by Pulse 98 98 98 Oximetry 10/21/18 10/21/18 10/21/18 06:30 06:40 06:50 Temperature Pulse Rate 97 H 97 H 96 H Pulse Rate [ Bilateral] Pulse Rate [ From Monitor] Respiratory 19 17 15 Rate Respiratory Rate [Bilateral ] Blood Pressure 95/58 95/58 105/62 O2 Sat by Pulse 99 99 99 Oximetry 10/21/18 10/21/18 10/21/18 07:00 07:10 07:20 Temperature Pulse Rate 94 H 96 H 96 H Pulse Rate [ Bilateral] Pulse Rate [ From Monitor] Respiratory 16 18 19 Rate Respiratory Rate [Bilateral ] Blood Pressure 98/58 98/58 100/57 O2 Sat by Pulse 98 99 99 Oximetry 10/21/18 10/21/18 10/21/18 07:30 07:40 07:50 Temperature Pulse Rate 94 H 94 H 94 H Pulse Rate [ Bilateral] Pulse Rate [ From Monitor] Respiratory 19 17 17 Rate Respiratory Rate [Bilateral ] Blood Pressure 104/61 104/61 100/57 O2 Sat by Pulse 98 99 99 Oximetry 10/21/18 10/21/18 10/21/18 08:00 08:10 08:20 Temperature Pulse Rate 93 H 96 H 95 H Pulse Rate [ Bilateral] Pulse Rate [ From Monitor] Respiratory 21 15 17 Rate Respiratory Rate [Bilateral ] Blood Pressure 101/61 101/61 103/60 O2 Sat by Pulse 99 99 99 Oximetry 10/21/18 10/21/18 10/21/18 08:30 08:40 08:50 Temperature Pulse Rate 94 H 93 H 94 H Pulse Rate [ Bilateral] Pulse Rate [ From Monitor] Respiratory 16 16 13 Rate Respiratory Rate [Bilateral ] Blood Pressure 95/58 95/58 102/57 O2 Sat by Pulse 98 99 97 Oximetry 10/21/18 10/21/18 10/21/18 09:00 09:10 09:20 Temperature Pulse Rate 94 H 94 H 95 H Pulse Rate [ Bilateral] Pulse Rate [ From Monitor] Respiratory 15 20 17 Rate Respiratory Rate [Bilateral ] Blood Pressure 95/59 95/59 94/57 O2 Sat by Pulse 98 98 99 Oximetry 10/21/18 09:30 Temperature Pulse Rate 95 H Pulse Rate [ Bilateral] Pulse Rate [ From Monitor] Respiratory 18 Rate Respiratory Rate [Bilateral ] Blood Pressure 102/58 O2 Sat by Pulse 96 Oximetry Constitutional: appears uncomfortable, other (middle aged and chronically ill looking AAM with increased resp effort at rest) Eyes: non-icteric ENT: oropharynx moist, other (mallampati 2) Neck: supple, no lymphadenopathy, no JVD, other (no thyromegaly) Effort: mildly labored Ascultation: Bilateral: diminished breath sounds, rhonchi Percussion: Bilateral: not dull Cardiovascular: regular rate and rhythm Gastrointestinal: normoactive bowel sounds, soft, non-tender, non-distended Integumentary: other (poor turgor) Extremities: no cyanosis, no edema, pulses normal, no ischemia or petechiae Neurologic: pupils equal and round, other (+ cognitive dysfunction; lethargic today) Psychiatric: other (flat ) CBC and BMP: 10/18/18 00:50 10/22/18 14:45 ABG, PT/INR, D-dimer: ABG POC ABG pH 7.347 (7.35-7.45) L 10/18/18 11:56 POC ABG pO2 72 (80-105) L 10/18/18 11:56 POC ABG HCO3 14.5 (22-26 mml/L) 10/18/18 11:56 POC ABG Total CO2 15 (23-27mmol/L) 10/18/18 11:56 POC ABG O2 Sat 94 10/18/18 11:56 Abnormal lab findings: Abnormal Labs 10/14/18 10/14/18 10/14/18 23:21 23:21 23:21 WBC RBC Hgb 10.2 L Hct 32.0 L MCH MCHC RDW 18.9 H Plt Count 100 L Seg Neuts % (Manual) 34.0 L Lymphocytes % (Manual) Monocytes % (Manual) Nucleated RBC % Seg Neutrophils # Man 1.7 L Abs Lymphs (Manual) Lymphocytes # (Manual) 0.8 L POC ABG pH POC ABG pCO2 POC ABG pO2 Sodium 156 H Potassium Chloride 117.8 H Carbon Dioxide 19 L BUN 124 H Creatinine 4.8 H Glucose POC Glucose Lactic Acid 4.90 H* Calcium Magnesium AST 72 H ALT Troponin T 0.034 H C-Reactive Protein Albumin 1.9 L LDL Cholesterol Direct 13 L HDL Cholesterol 28 L Free T4 Thyroxine (T4) Urine Creatinine Urine Chloride Urine Total Protein Lymph Enumerat CD4/CD8 Absolute CD3 Count % CD4 Cells Absolute CD4 Count Absolute CD8 Count Absolute CD19 Count HIV-1 RNA PCR copies/ml HIV-1 RNA (PCR) log 10/15/18 10/15/18 10/15/18 00:50 03:46 04:29 WBC RBC Hgb Hct MCH MCHC RDW Plt Count Seg Neuts % (Manual) Lymphocytes % (Manual) Monocytes % (Manual) Nucleated RBC % Seg Neutrophils # Man Abs Lymphs (Manual) Lymphocytes # (Manual) POC ABG pH POC ABG pCO2 POC ABG pO2 Sodium Potassium Chloride Carbon Dioxide BUN Creatinine Glucose POC Glucose Lactic Acid 3.30 H* 2.20 H* 2.20 H* Calcium Magnesium AST ALT Troponin T C-Reactive Protein Albumin LDL Cholesterol Direct HDL Cholesterol Free T4 Thyroxine (T4) Urine Creatinine Urine Chloride Urine Total Protein Lymph Enumerat CD4/CD8 Absolute CD3 Count % CD4 Cells Absolute CD4 Count Absolute CD8 Count Absolute CD19 Count HIV-1 RNA PCR copies/ml HIV-1 RNA (PCR) log 05/10/2910/15/18 10/15/18 05:37 06:18 09:16 WBC RBC Hgb Hct MCH MCHC RDW Plt Count Seg Neuts % (Manual) Lymphocytes % (Manual) Monocytes % (Manual) Nucleated RBC % Seg Neutrophils # Man Abs Lymphs (Manual) Lymphocytes # (Manual) POC ABG pH POC ABG pCO2 POC ABG pO2 Sodium Potassium Chloride Carbon Dioxide BUN Creatinine Glucose POC Glucose Lactic Acid 2.30 H* 2.50 H* 3.10 H* Calcium Magnesium AST ALT Troponin T C-Reactive Protein Albumin LDL Cholesterol Direct HDL Cholesterol Free T4 Thyroxine (T4) Urine Creatinine Urine Chloride Urine Total Protein Lymph Enumerat CD4/CD8 Absolute CD3 Count % CD4 Cells Absolute CD4 Count Absolute CD8 Count Absolute CD19 Count HIV-1 RNA PCR copies/ml HIV-1 RNA (PCR) log 10/15/18 10/15/18 10/15/18 09:16 13:03 15:13 WBC RBC Hgb Hct MCH MCHC RDW Plt Count Seg Neuts % (Manual) Lymphocytes % (Manual) Monocytes % (Manual) Nucleated RBC % Seg Neutrophils # Man Abs Lymphs (Manual) Lymphocytes # (Manual) POC ABG pH 7.308 L POC ABG pCO2 33.1 L POC ABG pO2 70 L Sodium 158 H Potassium Chloride 121.1 H Carbon Dioxide 19 L BUN 120 H Creatinine 4.3 H Glucose 119 H POC Glucose Lactic Acid 2.70 H* Calcium 8.0 L Magnesium AST ALT Troponin T C-Reactive Protein Albumin LDL Cholesterol Direct HDL Cholesterol Free T4 Thyroxine (T4) Urine Creatinine Urine Chloride Urine Total Protein Lymph Enumerat CD4/CD8 Absolute CD3 Count % CD4 Cells Absolute CD4 Count Absolute CD8 Count Absolute CD19 Count HIV-1 RNA PCR copies/ml HIV-1 RNA (PCR) log 10/15/18 10/15/18 10/16/18 15:13 15:13 05:18 WBC 4.2 L RBC Hgb 10.8 L Hct 34.9 L MCH 27 L MCHC 31 L RDW 19.6 H Plt Count 38 L Seg Neuts % (Manual) 39.0 L Lymphocytes % (Manual) 9.0 L Monocytes % (Manual) 12.0 H Nucleated RBC % Seg Neutrophils # Man 1.6 L Abs Lymphs (Manual) 309 L Lymphocytes # (Manual) 0.4 L POC ABG pH POC ABG pCO2 POC ABG pO2 Sodium Potassium Chloride Carbon Dioxide BUN Creatinine Glucose POC Glucose Lactic Acid Calcium Magnesium AST ALT Troponin T C-Reactive Protein Albumin LDL Cholesterol Direct HDL Cholesterol Free T4 Thyroxine (T4) Urine Creatinine Urine Chloride Urine Total Protein Lymph Enumerat CD4/CD8 0.84 L Absolute CD3 Count 187 L % CD4 Cells 28 L Absolute CD4 Count 88 L Absolute CD8 Count 104 L Absolute CD19 Count 82 L HIV-1 RNA PCR copies/ml <20 H HIV-1 RNA (PCR) log <1.30 H 10/16/18 10/16/18 10/16/18 05:18 12:40 12:40 WBC RBC Hgb Hct MCH MCHC RDW Plt Count Seg Neuts % (Manual) Lymphocytes % (Manual) Monocytes % (Manual) Nucleated RBC % Seg Neutrophils # Man Abs Lymphs (Manual) Lymphocytes # (Manual) POC ABG pH POC ABG pCO2 POC ABG pO2 Sodium 161 H* Potassium 3.5 L Chloride 130.6 H Carbon Dioxide 18 L BUN 105 H Creatinine 3.4 H Glucose POC Glucose Lactic Acid Calcium Magnesium AST 522 H ALT 167 H Troponin T C-Reactive Protein Albumin 1.5 L LDL Cholesterol Direct HDL Cholesterol Free T4 0.38 L Thyroxine (T4) 1.8 L Urine Creatinine Urine Chloride Urine Total Protein Lymph Enumerat CD4/CD8 Absolute CD3 Count % CD4 Cells Absolute CD4 Count Absolute CD8 Count Absolute CD19 Count HIV-1 RNA PCR copies/ml HIV-1 RNA (PCR) log 10/16/18 10/16/18 10/17/18 15:19 23:43 00:17 WBC RBC Hgb Hct MCH MCHC RDW Plt Count Seg Neuts % (Manual) Lymphocytes % (Manual) Monocytes % (Manual) Nucleated RBC % Seg Neutrophils # Man Abs Lymphs (Manual) Lymphocytes # (Manual) POC ABG pH POC ABG pCO2 POC ABG pO2 62 L 63 L Sodium Potassium Chloride Carbon Dioxide BUN Creatinine Glucose POC Glucose 174 H Lactic Acid Calcium Magnesium AST ALT Troponin T C-Reactive Protein Albumin LDL Cholesterol Direct HDL Cholesterol Free T4 Thyroxine (T4) Urine Creatinine Urine Chloride Urine Total Protein Lymph Enumerat CD4/CD8 Absolute CD3 Count % CD4 Cells Absolute CD4 Count Absolute CD8 Count Absolute CD19 Count HIV-1 RNA PCR copies/ml HIV-1 RNA (PCR) log 10/17/18 10/17/18 10/17/18 06:55 11:57 14:41 WBC RBC Hgb Hct MCH MCHC RDW Plt Count Seg Neuts % (Manual) Lymphocytes % (Manual) Monocytes % (Manual) Nucleated RBC % Seg Neutrophils # Man Abs Lymphs (Manual) Lymphocytes # (Manual) POC ABG pH POC ABG pCO2 POC ABG pO2 Sodium 150 H D Potassium 3.3 L Chloride 122.3 H Carbon Dioxide 18 L BUN 91 H Creatinine 2.9 H Glucose 140 H POC Glucose 129 H 174 H Lactic Acid Calcium 8.0 L Magnesium 1.60 L AST ALT Troponin T C-Reactive Protein Albumin LDL Cholesterol Direct HDL Cholesterol Free T4 Thyroxine (T4) Urine Creatinine Urine Chloride Urine Total Protein Lymph Enumerat CD4/CD8 Absolute CD3 Count % CD4 Cells Absolute CD4 Count Absolute CD8 Count Absolute CD19 Count HIV-1 RNA PCR copies/ml HIV-1 RNA (PCR) log 10/17/18 10/17/18 10/17/18 14:41 18:56 19:45 WBC RBC Hgb Hct MCH MCHC RDW Plt Count Seg Neuts % (Manual) Lymphocytes % (Manual) Monocytes % (Manual) Nucleated RBC % Seg Neutrophils # Man Abs Lymphs (Manual) Lymphocytes # (Manual) POC ABG pH POC ABG pCO2 POC ABG pO2 Sodium Potassium Chloride Carbon Dioxide BUN Creatinine Glucose POC Glucose 125 H Lactic Acid Calcium Magnesium AST ALT Troponin T C-Reactive Protein 21.20 H Albumin LDL Cholesterol Direct HDL Cholesterol Free T4 Thyroxine (T4) Urine Creatinine 36.3 H Urine Chloride 39.3 L Urine Total Protein 49 H Lymph Enumerat CD4/CD8 Absolute CD3 Count % CD4 Cells Absolute CD4 Count Absolute CD8 Count Absolute CD19 Count HIV-1 RNA PCR copies/ml HIV-1 RNA (PCR) log 10/17/18 10/17/18 10/18/18 21:24 23:54 00:50 WBC RBC 3.23 L Hgb 8.9 L Hct 27.4 L D MCH MCHC RDW 19.6 H Plt Count 56 L Seg Neuts % (Manual) 81.0 H Lymphocytes % (Manual) 9.0 L Monocytes % (Manual) Nucleated RBC % 1.0 H Seg Neutrophils # Man 8.4 H Abs Lymphs (Manual) Lymphocytes # (Manual) 0.9 L POC ABG pH 7.328 L POC ABG pCO2 POC ABG pO2 66 L Sodium Potassium Chloride Carbon Dioxide BUN Creatinine Glucose POC Glucose 128 H Lactic Acid Calcium Magnesium AST ALT Troponin T C-Reactive Protein Albumin LDL Cholesterol Direct HDL Cholesterol Free T4 Thyroxine (T4) Urine Creatinine Urine Chloride Urine Total Protein Lymph Enumerat CD4/CD8 Absolute CD3 Count % CD4 Cells Absolute CD4 Count Absolute CD8 Count Absolute CD19 Count HIV-1 RNA PCR copies/ml HIV-1 RNA (PCR) log 10/18/18 10/18/18 10/18/18 05:55 11:56 16:41 WBC RBC Hgb Hct MCH MCHC RDW Plt Count Seg Neuts % (Manual) Lymphocytes % (Manual) Monocytes % (Manual) Nucleated RBC % Seg Neutrophils # Man Abs Lymphs (Manual) Lymphocytes # (Manual) POC ABG pH 7.347 L POC ABG pCO2 POC ABG pO2 72 L Sodium 151 H Potassium Chloride 122.8 H Carbon Dioxide 16 L BUN 91 H Creatinine 2.3 H Glucose 158 H POC Glucose 147 H Lactic Acid Calcium Magnesium AST ALT Troponin T C-Reactive Protein Albumin LDL Cholesterol Direct HDL Cholesterol Free T4 Thyroxine (T4) Urine Creatinine Urine Chloride Urine Total Protein Lymph Enumerat CD4/CD8 Absolute CD3 Count % CD4 Cells Absolute CD4 Count Absolute CD8 Count Absolute CD19 Count HIV-1 RNA PCR copies/ml HIV-1 RNA (PCR) log 10/18/18 10/19/18 10/19/18 23:18 05:02 05:51 WBC RBC Hgb Hct MCH MCHC RDW Plt Count Seg Neuts % (Manual) Lymphocytes % (Manual) Monocytes % (Manual) Nucleated RBC % Seg Neutrophils # Man Abs Lymphs (Manual) Lymphocytes # (Manual) POC ABG pH POC ABG pCO2 POC ABG pO2 Sodium 150 H Potassium Chloride 123.1 H Carbon Dioxide 16 L BUN 87 H Creatinine 2.2 H Glucose 116 H POC Glucose 148 H 123 H Lactic Acid Calcium 8.0 L Magnesium AST ALT Troponin T C-Reactive Protein Albumin LDL Cholesterol Direct HDL Cholesterol Free T4 Thyroxine (T4) Urine Creatinine Urine Chloride Urine Total Protein Lymph Enumerat CD4/CD8 Absolute CD3 Count % CD4 Cells Absolute CD4 Count Absolute CD8 Count Absolute CD19 Count HIV-1 RNA PCR copies/ml HIV-1 RNA (PCR) log 10/19/18 10/19/18 10/19/18 11:03 17:16 23:52 WBC RBC Hgb Hct MCH MCHC RDW Plt Count Seg Neuts % (Manual) Lymphocytes % (Manual) Monocytes % (Manual) Nucleated RBC % Seg Neutrophils # Man Abs Lymphs (Manual) Lymphocytes # (Manual) POC ABG pH POC ABG pCO2 POC ABG pO2 Sodium Potassium Chloride Carbon Dioxide BUN Creatinine Glucose POC Glucose 171 H 181 H 195 H Lactic Acid Calcium Magnesium AST ALT Troponin T C-Reactive Protein Albumin LDL Cholesterol Direct HDL Cholesterol Free T4 Thyroxine (T4) Urine Creatinine Urine Chloride Urine Total Protein Lymph Enumerat CD4/CD8 Absolute CD3 Count % CD4 Cells Absolute CD4 Count Absolute CD8 Count Absolute CD19 Count HIV-1 RNA PCR copies/ml HIV-1 RNA (PCR) log 10/20/18 10/20/18 10/20/18 05:18 06:06 12:14 WBC RBC Hgb Hct MCH MCHC RDW Plt Count Seg Neuts % (Manual) Lymphocytes % (Manual) Monocytes % (Manual) Nucleated RBC % Seg Neutrophils # Man Abs Lymphs (Manual) Lymphocytes # (Manual) POC ABG pH POC ABG pCO2 POC ABG pO2 Sodium 147 H Potassium Chloride 116.9 H Carbon Dioxide 18 L BUN 89 H Creatinine 1.8 H Glucose 208 H POC Glucose 223 H 238 H Lactic Acid Calcium 7.8 L Magnesium AST ALT Troponin T C-Reactive Protein Albumin LDL Cholesterol Direct HDL Cholesterol Free T4 Thyroxine (T4) Urine Creatinine Urine Chloride Urine Total Protein Lymph Enumerat CD4/CD8 Absolute CD3 Count % CD4 Cells Absolute CD4 Count Absolute CD8 Count Absolute CD19 Count HIV-1 RNA PCR copies/ml HIV-1 RNA (PCR) log 10/20/18 10/21/18 10/21/18 22:42 04:44 05:27 WBC RBC Hgb Hct MCH MCHC RDW Plt Count Seg Neuts % (Manual) Lymphocytes % (Manual) Monocytes % (Manual) Nucleated RBC % Seg Neutrophils # Man Abs Lymphs (Manual) Lymphocytes # (Manual) POC ABG pH POC ABG pCO2 POC ABG pO2 Sodium 146 H Potassium Chloride 115.6 H Carbon Dioxide 19 L BUN 90 H Creatinine 1.6 H Glucose 168 H POC Glucose 164 H 172 H Lactic Acid Calcium Magnesium AST ALT Troponin T C-Reactive Protein Albumin LDL Cholesterol Direct HDL Cholesterol Free T4 Thyroxine (T4) Urine Creatinine Urine Chloride Urine Total Protein Lymph Enumerat CD4/CD8 Absolute CD3 Count % CD4 Cells Absolute CD4 Count Absolute CD8 Count Absolute CD19 Count HIV-1 RNA PCR copies/ml HIV-1 RNA (PCR) log Chest x-ray: pending Allied health notes reviewed: nursing
--- NOTE | 2018-10-21 12:26 | Progress Note ---
Assessment and Plan Assessment and plan: 58 year old man with history of HIV, toxoplasmosis, severe the reservoir deficits, syphilitic encephalopathy, history of polysubstance abuse including cocaine. He status post trach and tree traversal, has a g-tube still intact. The patient was brought from [facility] for respiratory distress and altered mental status Sepsis secondary to pneumonia, septic shock - ID is following him - Patient is on Mepron and cefazolin Acute kidney injury due to vasomotor nephropathy and ATN - IV fluids, nephrology Hypernatremia - Hypotonic IV fluid, free water via g-tube Acute hypoxic respiratory failure - Continue oxygen via venti mask and BiPAP as tolerated Hypothyroidism - thyroid function tests show low T4 and low free T4, increase synthroid dose HIV-AIDS - Patient is to restart add at the per ID DVT prophylaxis with heparin subcutaneously Disposition; transfer him to [facility]. Patient need Rehab. History Interval history: Patient was seen and evaluated this morning. No nursing issues reported overnight. Hospitalist Physical - Physical exam Narrative exam: Not in cardiopulmonary distress. The patient is cachectic. Vital signs as documented. Head exam is unremarkable. No scleral icterus . Neck is without jugular venous distension, thyromegaly, or carotid bruits. Lungs are clear to auscultation. Cardiac exam reveals regular rate and Rhythm. Abdominal exam reveals normal bowel sounds, no masses, no organomegaly and no aortic enlargement. Extremities are nonedematous and both femoral and pedal pulses are normal. BI TESTER: patient is non verbal - Constitutional Vitals: Temp Pulse Resp BP Pulse Ox 97.5 F L 95 H 18 102/58 96 10/21/18 04:00 10/21/18 09:30 10/21/18 09:30 10/21/18 09:30 10/21/18 09:30 General appearance: Present: severe distress, cachectic Results - Labs CBC & Chem 7: 10/18/18 00:50 10/21/18 04:44 Labs: Laboratory Last Values WBC 10.4 K/mm3 (4.5-11.0) 10/18/18 00:50 RBC 3.23 M/mm3 (3.65-5.03) L 10/18/18 00:50 Hgb 8.9 gm/dl (11.8-15.2) L 10/18/18 00:50 Hct 27.4 % (35.5-45.6) L D 10/18/18 00:50 MCV 85 fl (84-94) 10/18/18 00:50 MCH 28 pg (28-32) 10/18/18 00:50 MCHC 32 % (32-34) 10/18/18 00:50 RDW 19.6 % (13.2-15.2) H 10/18/18 00:50 Plt Count 56 K/mm3 (140-440) L 10/18/18 00:50 Lymph % (Auto) Drafter 10/14/18 23:21 [place] % (Auto) Drafter 10/14/18 23:21 Eos % (Auto) Drafter 10/14/18 23:21 Baso % (Auto) Drafter 10/14/18 23:21 Lymph # Drafter 10/14/18 23:21 [place] # Drafter 10/14/18 23:21 Eos # Drafter 10/14/18 23:21 Baso # Drafter 10/14/18 23:21 Add Manual Diff Complete 10/18/18 00:50 Total Counted 100 10/18/18 00:50 Seg Neutrophils % Drafter 10/18/18 00:50 Seg Neuts % (Manual) 81.0 % (40.0-70.0) H 10/18/18 00:50 7.0 % 10/18/18 00:50 9.0 % (13.4-35.0) L 10/18/18 00:50 Reactive Lymphs % (Man) 0 % 10/18/18 00:50 3.0 % (0.0-7.3) 10/18/18 00:50 0 % (0.0-4.3) 10/18/18 00:50 0 % (0.0-1.8) 10/18/18 00:50 0 % 10/18/18 00:50 0 % 10/18/18 00:50 0 % 10/18/18 00:50 0 % 10/18/18 00:50 Nucleated RBC % 1.0 % (0.0-0.9) H 10/18/18 00:50 Seg Neutrophils # Drafter 10/14/18 23:21 Seg Neutrophils # Man 8.4 K/mm3 (1.8-7.7) H 10/18/18 00:50 Band Neutrophils # 0.7 K/mm3 10/18/18 00:50 Abs Lymphs (Manual) 309 cells/uL (850-3900) L 10/15/18 15:13 0.9 K/mm3 (1.2-5.4) L 10/18/18 00:50 Abs React Lymphs (Man) 0.0 K/mm3 10/18/18 00:50 0.3 K/mm3 (0.0-0.8) 10/18/18 00:50 0.0 K/mm3 (0.0-0.4) 10/18/18 00:50 0.0 K/mm3 (0.0-0.1) 10/18/18 00:50 0.0 K/mm3 10/18/18 00:50 0.0 K/mm3 10/18/18 00:50 0.0 K/mm3 10/18/18 00:50 Blast Cells # 0.0 K/mm3 10/18/18 00:50 WBC Morphology Not Reportable 10/18/18 00:50 WBC Morphology TNR 10/18/18 00:50 Hypersegmented Neuts Not Reportable 10/18/18 00:50 Hyposegmented Neuts Not Reportable 10/18/18 00:50 Hypogranular Neuts Not Reportable 10/18/18 00:50 Not Reportable 10/18/18 00:50 Not Reportable 10/18/18 00:50 Not Reportable 10/18/18 00:50 Not Reportable 10/18/18 00:50 Not Reportable 10/18/18 00:50 Not Reportable 10/18/18 00:50 Appears decreased 10/18/18 00:50 Not Reportable 10/18/18 00:50 Plt Clumps, EDTA Not Reportable 10/18/18 00:50 Not Reportable 10/18/18 00:50 Not Reportable 10/18/18 00:50 Not Reportable 10/18/18 00:50 Plt Morphology Comment Not Reportable 10/18/18 00:50 RBC Morphology Not Reportable 10/18/18 00:50 Dimorphic RBCs Not Reportable 10/18/18 00:50 Not Reportable 10/18/18 00:50 Not Reportable 10/18/18 00:50 Not Reportable 10/18/18 00:50 1+ 10/18/18 00:50 Not Reportable 10/18/18 00:50 Not Reportable 10/18/18 00:50 Not Reportable 10/18/18 00:50 Not Reportable 10/18/18 00:50 Not Reportable 10/18/18 00:50 Few 10/18/18 00:50 Not Reportable 10/18/18 00:50 Not Reportable 10/18/18 00:50 Not Reportable 10/18/18 00:50 Not Reportable 10/18/18 00:50 Not Reportable 10/18/18 00:50 Not Reportable 10/18/18 00:50 Not Reportable 10/18/18 00:50 1+ 10/18/18 00:50 Not Reportable 10/18/18 00:50 Acanthocytes (Spur) Not Reportable 10/18/18 00:50 Rouleaux Not Reportable 10/18/18 00:50 Not Reportable 10/18/18 00:50 Not Reportable 10/18/18 00:50 Not Reportable 10/18/18 00:50 Not Reportable 10/18/18 00:50 Hem Pathologist Commnt No 10/18/18 00:50 POC ABG pH 7.347 (7.35-7.45) L 10/18/18 11:56 POC ABG pCO2 33.1 (35-45) L 10/15/18 13:03 POC ABG pO2 72 (80-105) L 10/18/18 11:56 POC ABG HCO3 14.5 (22-26 mml/L) 10/18/18 11:56 POC ABG Total CO2 15 (23-27mmol/L) 10/18/18 11:56 POC ABG O2 Sat 94 10/18/18 11:56 POC ABG Base Excess -11 ((-2) - (+3)mmol/L) 10/18/18 11:56 50 % 10/18/18 11:56 Sodium 146 mmol/L (137-145) H 10/21/18 04:44 Potassium 4.5 mmol/L (3.6-5.0) 10/21/18 04:44 Chloride 115.6 mmol/L (98-107) H 10/21/18 04:44 Carbon Dioxide 19 mmol/L (22-30) L 10/21/18 04:44 16 mmol/L 10/21/18 04:44 BUN 90 mg/dL (9-20) H 10/21/18 04:44 1.6 mg/dL (0.8-1.5) H 10/21/18 04:44 Estimated GFR 54 ml/min 10/21/18 04:44 56 % 10/21/18 04:44 Glucose 168 mg/dL (75-100) H 10/21/18 04:44 POC Glucose 172 (70-105) H 10/21/18 05:27 Lactic Acid 1.40 mmol/L (0.7-2.0) 10/17/18 14:41 Calcium 8.5 mg/dL (8.4-10.2) 10/21/18 04:44 Phosphorus 3.40 mg/dL (2.5-4.5) 10/18/18 16:41 Magnesium 2.10 mg/dL (1.7-2.3) 10/19/18 05:02 0.40 mg/dL (0.1-1.2) 10/16/18 05:18 AST 522 units/L (5-40) H 10/16/18 05:18 ALT 167 units/L (7-56) H 10/16/18 05:18 61 units/L (35-129) 10/16/18 05:18 0.034 ng/mL (0.00-0.029) H 10/14/18 23:21 21.20 mg/dL (0.00-1.30) H 10/17/18 14:41 6.4 g/dL (6.3-8.2) 10/16/18 05:18 1.5 g/dL (3.9-5) L 10/16/18 05:18 0.3 % 10/16/18 05:18 Triglycerides 63 mg/dL (2-149) 10/14/18 23:21 Cholesterol 59 mg/dL (50-199) 10/14/18 23:21 13 mg/dL (50-130) L 10/14/18 23:21 28 mg/dL (40-59) L 10/14/18 23:21 2.10 % 10/14/18 23:21 TSH 2.560 mlU/mL (0.270-4.200) 10/16/18 12:40 Free T4 0.38 ng/dL (0.76-1.46) L 10/16/18 12:40 1.8 ug/dL (4.0-12.0) L 10/16/18 12:40 [place] (Yellow) 10/14/18 01:27 Cloudy (Clear) 10/14/18 01:27 5.0 (5.0-7.0) 10/14/18 01:27 Ur Specific [place] 1.020 (1.003-1.030) 10/14/18 01:27 100 mg/dl mg/dL (Negative) 10/14/18 01:27 Neg mg/dL (Negative) 10/14/18 01:27 Neg mg/dL (Negative) 10/14/18 01:27 Lg (Negative) 10/14/18 01:27 Neg (Negative) 10/14/18 01:27 Neg (Negative) 10/14/18 01:27 2.0 mg/dL (<2.0) 10/14/18 01:27 Ur Leukocyte Esterase Neg (Negative) 10/14/18 01:27 6.0 /HPF (0.0-6.0) 10/14/18 01:27 95.0 /HPF (0.0-6.0) 10/14/18 01:27 U Epithel Cells (Auto) < 1.0 /HPF (0-13.0) 10/14/18 01:27 Amorphous Crystals 3+ 10/14/18 01:27 Hyaline Casts 4 /LPF 10/14/18 01:27 Granular Casts 2 /LPF 10/14/18 01:27 1+ /HPF 10/14/18 01:27 36.3 mg/dL (0.1-20.0) H 10/17/18 19:45 Protein/Creatinin Ratio 1.35 10/17/18 19:45 46 mmol/L 10/17/18 19:45 39.3 mmolL (110-250) L 10/17/18 19:45 49 mg/dL (5-11.8) H 10/17/18 19:45 Random Vancomycin 7.6 ug/mL (0-40.0) 10/17/18 05:20 Lymph Enumerat CD4/CD8 0.84 (0.86-5.00) L 10/15/18 15:13 % CD3 Cells 60 % (57-85) 10/15/18 15:13 187 cells/uL (840-3060) L 10/15/18 15:13 % CD4 Cells 28 % (30-61) L 10/15/18 15:13 88 cells/uL (490-1740) L 10/15/18 15:13 % CD8 Cells 34 % (12-42) 10/15/18 15:13 104 cells/uL (180-1170) L 10/15/18 15:13 % CD19 Cells 27 % (6-29) 10/15/18 15:13 82 cells/uL (110-660) L 10/15/18 15:13 HIV-1 RNA PCR copies/ml <20 Copies/mL H 10/15/18 15:13 <1.30 Log cps/mL H 10/15/18 15:13 Active Medications - Current Medications Current Medications: Generic Name Dose Route Start Last Admin Trade Name Freq PRN Reason Stop Dose Admin Acetaminophen 650 mg 10/15/18 03:28 Tylenol PO Q4H PRN Pain MILD(1-3)/Fever >100.5/DELGADO Albuterol 2.5 mg 10/16/18 10:30 Proventil IH Q4HRT PRN Shortness Of Breath Albuterol/Ipratropium 1 ampul 10/15/18 14:00 10/21/18 09:45 Duoneb *Not For Prn Use* IH 1 ampul Q6HRT [facility] Administration Lipase/Protease/Amylase 1 each 10/16/18 16:25 Pancreazbette Lema 10,500 Unit FEEDTUBE PRN PRN For Clogged Feeding Tube Aspirin 325 mg 10/17/18 10:00 10/21/18 10:08 Aspirin FEEDTUBE 325 mg DAILY BLOSSOM Administration Atorvastatin Calcium 20 mg 10/16/18 22:00 10/20/18 22:56 Lipitor FEEDTUBE 20 mg HS [facility] Administration Atovaquone 750 mg 10/19/18 16:00 10/21/18 10:07 Mepron PO 750 mg BID [place] Administration Bisacodyl 10 mg 10/16/18 10:30 Dulcolax [place] DAILY PRN Constipation Budesonide 0.5 mg 10/15/18 20:00 10/21/18 09:45 Pulmicort IH 0.5 mg Q12HRT [place] Administration Cholecalciferol 2,000 unit 10/17/18 10:00 10/21/18 10:08 Vitamin D3 FEEDTUBE 2,000 unit QAM [facility] Administration Darunavir 800 mg 10/19/18 13:00 10/21/18 10:08 Prezista PO 800 mg QDAY [facility] Administration Docusate Sodium 100 mg 10/16/18 10:30 Colace FEEDTUBE Q12H PRN Constipation/STOOL SOFTENER Famotidine 20 mg 10/15/18 10:00 10/21/18 10:08 Pepcid IV 20 mg QAM [facility] Administration Fluoxetine HCl 40 mg 10/17/18 10:00 10/21/18 10:07 Prozac PO 40 mg QDAY [facility] Administration Norepinephrine 4 mg in 250 mls @ 7.5 mls/hr 10/15/18 13:00 10/18/18 04:45 Levophed Drip 4 Mg/Ns 250 Ml IV 4 mcg/min TITR [facility] 15 mls/hr Administration Protocol 2 MCG/MIN Cefazolin Sodium 2 gm/ Sodium 100 mls @ 100 mls/hr 10/18/18 12:00 10/21/18 10:06 Chloride IV 100 mls/hr Q24HR [facility] Administration Sodium Chloride 1,000 mls @ 100 mls/hr 10/18/18 22:00 Nacl 0.45% 1000 Ml IV DIRECT [facility] Lamivudine 100 mg 10/20/18 10:00 10/21/18 10:07 Epivir PO 100 mg DAILY [place] Administration Levothyroxine Sodium 75 mcg 10/18/18 06:00 10/21/18 05:23 Synthroid PO 75 mcg DAILY@0600 [facility] Administration Methylprednisolone Sodium Succinate 40 mg 10/16/18 14:00 10/21/18 05:23 Solu-Medrol IV 40 mg Q8HR [facility] Administration Morphine Sulfate 2 mg 10/15/18 03:28 Morphine IV Q4H PRN Pain, Moderate (4-6) Ondansetron HCl 4 mg 10/15/18 03:28 Zofran IV Q8H PRN Nausea And Vomiting Polyethylene Glycol 17 gm 10/16/18 10:30 Miralax 3350 FEEDTUBE DAILY PRN Constipation Quetiapine Fumarate 100 mg 10/16/18 11:00 10/21/18 05:23 Seroquel FEEDTUBE Not Given Q8H [facility] Ritonavir 100 mg 10/19/18 12:00 10/21/18 10:08 Norvir PO 100 mg DAILY [facility] Administration Scopolamine 1 each 10/16/18 11:00 10/19/18 10:10 Transderm-Scop TD 1 each Q72H [facility] Administration Senna 17.2 mg 10/16/18 22:00 10/20/18 22:56 Senokot FEEDTUBE 17.2 mg HS [facility] Administration Simple Syrup 15 ml 10/16/18 16:25 Simple Syrup FEEDTUBE PRN PRN Hypoglycemia Simple Syrup 30 ml 10/16/18 16:25 Simple Syrup FEEDTUBE PRN PRN Hypoglycemia Sodium Bicarbonate 325 mg 10/16/18 16:25 Sodium Bicarbonate FEEDTUBE PRN PRN For Clogged Feeding Tube Sodium Chloride 10 ml 10/15/18 10:00 10/21/18 10:08 Sodium Chloride Flush Syringe 10 Ml IV 10 ml BID [place] Administration Sodium Chloride 10 ml 10/15/18 03:28 Sodium Chloride Flush Syringe 10 Ml IV PRN PRN LINE FLUSH Tenofovir Disoproxil Fumarate 300 mg 10/19/18 13:00 10/19/18 14:00 Viread PO 300 mg Q96H [facility] Administration Nutrition/Malnutrition Assess - Dietary Evaluation Nutrition/Malnutrition Findings: Nutrition Notes Start: 10/16/18 16:06 Freq: Status: Active Protocol: Document 10/21/18 10:25 RD (Rec: 10/21/18 10:35 RD [id number]) Co-Sign 10/21/18 10:25 LP Nutrition Notes Initial or Follow up Brief Note Current Diagnosis COPD,Sepsis,Respiratory Failure,Stroke Other Pertinent Diagnosis HIV/AIDS, Pneu, PEG Current Diet Vital AF 1.2 @ 50 mL/hr Labs/Tests B BUN:90 Creat: 1.6 Pertinent Medications Solu-Medrol Height 5 ft 3 in Weight 57.6 kg [place] Body Weight (kg) 56.36 BMI 22.4 Subjective/Other Information RD screen to manage TF. Per RN note, gastric residuals of 650 mL on 10/20/18. RN decided to keep TF the same and recommend to MD adding Reglan to the pt's care. Nutrition Intervention Follow-Up By: 10/23/18 Additional Comments f/u: residuals
[2018-10-21] MEDS ORDERED: D50W (25GM) Syringe IV PRN (17:33)
[2018-10-21] MEDS: REGLAN IV PRN (18:41)
[2018-10-21] MEDS: HumuLIN R SUB-Q SCH (19:28)
[2018-10-21] MEDS: NACL 0.45% 1000 ML 1,000 ML IV SCH (21:03)
[2018-10-21] MEDS: SENOKOT FEEDTUBE SCH (21:05)
[2018-10-22] MEDS: DUONEB *Not for PRN Use IH SCH ×4 (01:18→20:01)
[2018-10-22] MEDS: HumuLIN R SUB-Q SCH ×5 (01:40→23:44)
[2018-10-22] MEDS: NACL 0.45% 1000 ML 1,000 ML IV SCH (01:41)
[2018-10-22 05:16] LABS: BUN/Creatinine Ratio 60; Blood Urea Nitrogen 84 mg/dL (9-20); Hemolysis Index 5
[2018-10-22] MEDS: SOLU-Medrol IV SCH ×3 (06:04→21:27)
[2018-10-22] MEDS: SYNTHROID PO SCH (06:04)
[2018-10-22] MEDS: KCL 10MEQ/100ML 10 MEQ/100 ML BAG IV SCH ×4 (06:16→11:16)
[2018-10-22] MEDS: D5W 1,000 ML IV SCH ×3 (06:17→23:34)
[2018-10-22] MEDS: REGLAN IV PRN (06:18)
--- NOTE | 2018-10-22 08:09 | Progress Note ---
Assessment and Plan - Patient Problems (1) Acute kidney failure with tubular necrosis Current Visit: Yes Status: Acute Plan to address problem: renal function slowly improving, cont current supportive care for ATN (2) Hypernatremia Current Visit: Yes Status: Acute Plan to address problem: Significant free water deficit. Na trending up, start D5 at 100ml/hr (3) Acute and chronic respiratory failure with hypoxia Current Visit: Yes Status: Acute Plan to address problem: Management by pulmonary (4) HCAP (healthcare-associated pneumonia) Current Visit: Yes Status: Acute Plan to address problem: Continue antibiotics appropriately dosed to the degree of kidney function. Follow cultures (5) HIV (human immunodeficiency virus infection) Current Visit: Yes Status: Chronic Qualifiers: Plan to address problem: Continue antiretrovirals and f/u with infectious disease (6) Encephalopathy Current Visit: Yes Status: Acute Subjective Date of service: 10/22/18 Principal diagnosis: Ac Hypoxemic Resp Failure; Pneumonia (HAP); Acute encephalopathy ; HIV/AIDS Interval history: Pt awake, opening eyes, no acute respiratory distress. Objective - Vital Signs Vital signs: Vital Signs - 12hr 10/21/18 10/21/18 10/21/18 20:15 20:30 20:45 Temperature Pulse Rate 131 H 130 H 129 H Pulse Rate [ Bilateral] Pulse Rate [ From Monitor] Respiratory 20 18 15 Rate Respiratory Rate [Bilateral ] Blood Pressure 92/51 93/53 93/51 O2 Sat by Pulse 95 94 94 Oximetry 10/21/18 10/21/18 10/21/18 21:00 21:15 21:30 Temperature Pulse Rate 126 H 124 H 121 H Pulse Rate [ Bilateral] Pulse Rate [ From Monitor] Respiratory 17 17 17 Rate Respiratory Rate [Bilateral ] Blood Pressure 89/51 84/53 90/50 O2 Sat by Pulse 95 94 97 Oximetry 10/21/18 10/21/18 10/21/18 21:45 22:00 22:15 Temperature Pulse Rate 117 H 115 H 113 H Pulse Rate [ Bilateral] Pulse Rate [ From Monitor] Respiratory 15 13 14 Rate Respiratory Rate [Bilateral ] Blood Pressure 90/49 89/46 94/47 O2 Sat by Pulse 99 98 Oximetry 10/21/18 10/21/18 10/21/18 22:26 22:30 22:32 Temperature Pulse Rate 113 H 113 H 112 H Pulse Rate [ Bilateral] Pulse Rate [ From Monitor] Respiratory 17 17 14 Rate Respiratory Rate [Bilateral ] Blood Pressure 94/47 90/48 90/48 O2 Sat by Pulse 99 99 99 Oximetry 10/21/18 10/21/18 10/21/18 22:45 22:49 23:00 Temperature Pulse Rate 111 H 110 H 110 H Pulse Rate [ Bilateral] Pulse Rate [ From Monitor] Respiratory 16 14 15 Rate Respiratory Rate [Bilateral ] Blood Pressure 95/53 95/53 97/54 O2 Sat by Pulse 99 99 99 Oximetry 10/21/18 10/21/18 10/21/18 23:03 23:15 23:30 Temperature Pulse Rate 110 H 111 H 108 H Pulse Rate [ Bilateral] Pulse Rate [ From Monitor] Respiratory 13 16 16 Rate Respiratory Rate [Bilateral ] Blood Pressure 97/54 100/53 98/56 O2 Sat by Pulse 99 98 99 Oximetry 10/21/18 10/22/18 10/22/18 23:45 00:00 00:15 Temperature 98.6 F Pulse Rate 108 H 107 H 107 H Pulse Rate [ Bilateral] Pulse Rate [ 104 H From Monitor] Respiratory 19 14 14 Rate Respiratory Rate [Bilateral ] Blood Pressure 105/53 100/57 103/53 O2 Sat by Pulse 97 99 99 Oximetry 10/22/18 10/22/18 10/22/18 00:30 00:45 01:00 Temperature Pulse Rate 106 H 106 H 104 H Pulse Rate [ Bilateral] Pulse Rate [ From Monitor] Respiratory 15 15 14 Rate Respiratory Rate [Bilateral ] Blood Pressure 102/60 105/57 105/74 O2 Sat by Pulse 98 99 98 Oximetry 10/22/18 10/22/18 10/22/18 01:15 01:19 01:31 Temperature Pulse Rate 103 H 104 H Pulse Rate [ 121 H Bilateral] Pulse Rate [ From Monitor] Respiratory 15 16 Rate Respiratory 23 Rate [Bilateral ] Blood Pressure 108/60 165/136 O2 Sat by Pulse 99 89 Oximetry 10/22/18 10/22/18 10/22/18 01:45 02:00 02:15 Temperature Pulse Rate 103 H 104 H 104 H Pulse Rate [ Bilateral] Pulse Rate [ From Monitor] Respiratory 14 15 17 Rate Respiratory Rate [Bilateral ] Blood Pressure 105/62 105/63 113/61 O2 Sat by Pulse 100 99 100 Oximetry 10/22/18 10/22/18 10/22/18 02:30 02:45 03:00 Temperature Pulse Rate 104 H 105 H 105 H Pulse Rate [ Bilateral] Pulse Rate [ From Monitor] Respiratory 17 15 15 Rate Respiratory Rate [Bilateral ] Blood Pressure 108/61 110/65 106/60 O2 Sat by Pulse 99 100 100 Oximetry 10/22/18 10/22/18 10/22/18 03:15 03:30 03:45 Temperature Pulse Rate 105 H 105 H 105 H Pulse Rate [ Bilateral] Pulse Rate [ From Monitor] Respiratory 14 17 17 Rate Respiratory Rate [Bilateral ] Blood Pressure 106/63 105/64 112/59 O2 Sat by Pulse 100 100 100 Oximetry 10/22/18 10/22/18 10/22/18 04:00 04:15 04:30 Temperature 97.2 F L Pulse Rate 102 H 106 H 101 H Pulse Rate [ Bilateral] Pulse Rate [ 106 H From Monitor] Respiratory 15 14 16 Rate Respiratory Rate [Bilateral ] Blood Pressure 102/58 106/57 109/60 O2 Sat by Pulse 100 99 100 Oximetry 10/22/18 10/22/18 10/22/18 04:45 05:00 05:15 Temperature Pulse Rate 102 H 101 H 102 H Pulse Rate [ Bilateral] Pulse Rate [ From Monitor] Respiratory 16 13 15 Rate Respiratory Rate [Bilateral ] Blood Pressure 109/59 101/57 99/56 O2 Sat by Pulse 100 100 99 Oximetry 10/22/18 10/22/18 10/22/18 05:30 05:45 06:00 Temperature Pulse Rate 101 H 100 H 101 H Pulse Rate [ Bilateral] Pulse Rate [ From Monitor] Respiratory 17 15 13 Rate Respiratory Rate [Bilateral ] Blood Pressure 101/54 101/55 97/52 O2 Sat by Pulse 100 100 98 Oximetry 10/22/18 10/22/18 10/22/18 06:15 06:30 06:45 Temperature Pulse Rate 100 H 101 H 99 H Pulse Rate [ Bilateral] Pulse Rate [ From Monitor] Respiratory 13 14 14 Rate Respiratory Rate [Bilateral ] Blood Pressure 97/56 106/58 107/57 O2 Sat by Pulse 97 98 99 Oximetry 10/22/18 10/22/18 10/22/18 07:00 07:15 07:30 Temperature Pulse Rate 100 H 102 H 105 H Pulse Rate [ Bilateral] Pulse Rate [ From Monitor] Respiratory 15 17 12 Rate Respiratory Rate [Bilateral ] Blood Pressure 108/53 107/61 114/60 O2 Sat by Pulse 99 98 97 Oximetry 10/22/18 07:43 Temperature 96.8 F L Pulse Rate Pulse Rate [ Bilateral] Pulse Rate [ From Monitor] Respiratory Rate Respiratory Rate [Bilateral ] Blood Pressure O2 Sat by Pulse Oximetry - General Appearance General appearance: cachectic, chronically ill, frail EENT: ATNC, PERRL, mucous membranes dry Neck: no JVD Respiratory: Present: Clear to Ascultation Cardiology: regular, S1S2 Gastrointestinal: normoactive bowel sounds Integumentary: no rash, other Neurologic: no focal deficit, disoriented, CN 3-12 intact - Lab 10/18/18 00:50 10/22/18 04:29 Most recent lab results Calcium 8.0 mg/dL (8.4-10.2) L 10/22/18 04:29 Phosphorus 3.40 mg/dL (2.5-4.5) 10/18/18 16:41 Magnesium 2.10 mg/dL (1.7-2.3) 10/19/18 05:02 36.3 mg/dL (0.1-20.0) H 10/17/18 19:45 46 mmol/L 10/17/18 19:45 49 mg/dL (5-11.8) H 10/17/18 19:45 Medications & Allergies - Medications Allergies/Adverse Reactions: Allergies No Known Allergies Allergy (Verified 08/27/18 10:38) Home Medications: Home Medications Medication Instructions Recorded Confirmed Last Taken Type Acetylcysteine 20% Oral [Mucomyst 3 ml INTRATRACH Q6H 03/28/18 03/28/18 Unknown History Oral] Aspirin [Aspirin TAB] 325 mg FEEDTUBE DAILY 03/28/18 03/28/18 Unknown History Atorvastatin Calcium [Lipitor] 20 mg FEEDTUBE HS 03/28/18 03/28/18 Unknown History Bisacodyl [Bisac-Evac] 10 mg RC DAILY PRN 03/28/18 03/28/18 Unknown History Cholecalciferol (Vitamin D3) 2,000 unit FEEDTUBE QAM 03/28/18 03/28/18 Unknown History [Vitamin D3] Docusate Sodium [Move It Along] 100 mg FEEDTUBE Q12H PRN 03/28/18 03/28/18 U nknown History Doxazosin Mesylate [Cardura] 1 mg FEEDTUBE HS 03/28/18 03/28/18 Unknown History Ergocalciferol [Vitamin D2] 1 cap FEEDTUBE QWEEK 03/28/18 03/28/18 Unknown History Gabapentin [Neurontin] 300 mg FEEDTUBE HS 03/28/18 03/28/18 Unknown History Haloperidol Decanoate [Haldol 50 mg IM Q4W 03/28/18 03/28/18 Unknown History Decanoate] Haloperidol Lactate [Haldol] 0.4 ml IM Q8H PRN 03/28/18 03/28/18 Unknown History Ipratropium/Albuterol Sulfate 1 ampul IH Q4HR 03/28/18 03/28/18 Unknown History [DUONEB *Not for PRN Use*] Polyethylene Glycol 3350 17 gm FEEDTUBE DAILY PRN 03/28/18 03/28/18 Unknown History [Smoothlax] Quetiapine Fumarate [Seroquel] 100 mg FEEDTUBE Q8H 03/28/18 03/28/18 Unknown History Scopolamine [Transderm-Scop] 1 each TD Q72H 03/28/18 03/28/18 Unknown History Sennosides [Senna Laxative] 17.2 mg FEEDTUBE HS 03/28/18 03/28/18 Unknown History lamiVUDine [Lamivudine] 30 ml FEEDTUBE QAM 03/28/18 03/28/18 Unknown History traMADol [Ultram 50 MG tab] 50 mg FEEDTUBE TID #10 tablet 03/31/18 Unknown Rx Bacitracin Zinc Oint [Antibiotic 1 applicatio TP BID #1 tube 08/22/18 Unknown Rx Oint] ALBUTEROL NEB's [Proventil 0.083% 2.5 mg IH Q4HRT PRN nebu 09/01/18 Unknown Rx NEBS] Amoxicillin/K Clav Tab [Augmentin 875 each PO Q12HR #14 tablet 09/01/18 Unknown Rx 875MG TAB] Darunavir [Prezista] 800 mg PO QDAY tablet 09/01/18 Unknown Rx FLUoxetine [Prozac] 40 mg PO QDAY oral.liqd 09/01/18 Unknown Rx Famotidine [Pepcid] 20 mg PO BID tablet 09/01/18 Unknown Rx Levothyroxine [Synthroid] 50 mcg PO DAILY@0600 tablet 09/01/18 Unknown Rx Metoprolol [Lopressor TAB] 12.5 mg PO BID tablet 09/01/18 Unknown Rx Ritonavir [Norvir] 100 mg PO DAILY tab 09/01/18 Unknown Rx Tenofovir [Viread] 300 mg PO QDAY tablet 09/01/18 Unknown Rx Active Medications: Generic Name Dose Route Start Last Admin Trade Name Freq PRN Reason Stop Dose Admin Acetaminophen 650 mg 10/15/18 03:28 10/21/18 18:41 Tylenol PO 650 mg Q4H PRN Administration Pain MILD(1-3)/Fever >100.5/DELGADO Albuterol 2.5 mg 10/16/18 10:30 Proventil IH Q4HRT PRN Shortness Of Breath Albuterol/Ipratropium 1 ampul 10/15/18 14:00 10/22/18 01:18 Duoneb *Not For Prn Use* IH 1 ampul Q6HRT [facility] Administration Lipase/Protease/Amylase 1 each 10/16/18 16:25 Pancreazbette Lema 10,500 Unit FEEDTUBE PRN PRN For Clogged Feeding Tube Aspirin 325 mg 10/17/18 10:00 10/21/18 10:08 Aspirin FEEDTUBE 325 mg DAILY BL[facility] Administration Atorvastatin Calcium 20 mg 10/16/18 22:00 10/21/18 21:05 Lipitor FEEDTUBE 20 mg HS BL[facility] Administration Atovaquone 750 mg 10/19/18 16:00 10/21/18 21:05 Mepron PO 750 mg BID [place] Administration Bisacodyl 10 mg 10/16/18 10:30 Dulcolax MA DAILY PRN Constipation Budesonide 0.5 mg 10/15/18 20:00 10/21/18 19:41 Pulmicort IH 0.5 mg Q12HRT [facility] Administration Cholecalciferol 2,000 unit 10/17/18 10:00 10/21/18 10:08 Vitamin D3 FEEDTUBE 2,000 unit QAM [facility] Administration Darunavir 800 mg 10/19/18 13:00 10/21/18 10:08 Prezista PO 800 mg QDAY [facility] Administration Dextrose 50 ml 10/21/18 17:33 D50w (25gm) Syringe IV PRN PRN Hypoglycemia Docusate Sodium 100 mg 10/16/18 10:30 Colace FEEDTUBE Q12H PRN Constipation/STOOL SOFTENER Famotidine 20 mg 10/15/18 10:00 10/21/18 10:08 Pepcid IV 20 mg QAM [facility] Administration Fluoxetine HCl 40 mg 10/17/18 10:00 10/21/18 10:07 Prozac PO 40 mg QDAY [facility] Administration Norepinephrine 4 mg in 250 mls @ 7.5 mls/hr 10/15/18 13:00 10/18/18 04:45 Levophed Drip 4 Mg/Ns 250 Ml IV 4 mcg/min TITR BL[facility] 15 mls/hr Administration Protocol 2 MCG/MIN Cefazolin Sodium 2 gm/ Sodium 100 mls @ 100 mls/hr 10/18/18 12:00 10/21/18 10:06 Chloride IV 100 mls/hr Q24HR [facility] Administration Potassium Chloride 10 meq in 100 mls @ 100 mls/hr 10/22/18 06:00 10/22/18 07:41 Kcl 10meq/100ml IV 10/22/18 09:59 100 mls/hr Q1H [facility] Administration Dextrose 1,000 mls @ 125 mls/hr 10/22/18 06:00 10/22/18 06:17 D5w IV 125 mls/hr DIRECT [facility] Administration Insulin Human Regular 0 units 10/21/18 18:00 10/22/18 06:27 Humulin R SUB-Q Not Given Q6HR [facility] Protocol Lamivudine 100 mg 10/20/18 10:00 10/21/18 10:07 Epivir PO 100 mg DAILY [facility] Administration Levothyroxine Sodium 75 mcg 10/18/18 06:00 10/22/18 06:04 Synthroid PO 75 mcg DAILY@0600 [facility] Administration Methylprednisolone Sodium Succinate 40 mg 10/16/18 14:00 10/22/18 06:04 Solu-Medrol IV 40 mg Q8HR [facility] Administration Metoclopramide HCl 10 mg 10/21/18 17:33 10/22/18 06:18 Reglan IV 10 mg Q8H PRN Administration Nausea And Vomiting Morphine Sulfate 2 mg 10/15/18 03:28 Morphine IV Q4H PRN Pain, Moderate (4-6) Ondansetron HCl 4 mg 10/15/18 03:28 Zofran IV Q8H PRN Nausea And Vomiting Polyethylene Glycol 17 gm 10/16/18 10:30 Miralax 3350 FEEDTUBE DAILY PRN Constipation Quetiapine Fumarate 100 mg 10/16/18 11:00 10/21/18 19:28 Seroquel FEEDTUBE Not Given Q8H [facility] Ritonavir 100 mg 10/19/18 12:00 10/21/18 10:08 Norvir PO 100 mg DAILY [facility] Administration Scopolamine 1 each 10/16/18 11:00 10/19/18 10:10 Transderm-Scop TD 1 each Q72H [facility] Administration Senna 17.2 mg 10/16/18 22:00 10/21/18 21:05 Senokot FEEDTUBE 17.2 mg HS [facility] Administration Simple Syrup 15 ml 10/16/18 16:25 Simple Syrup FEEDTUBE PRN PRN Hypoglycemia Simple Syrup 30 ml 10/16/18 16:25 Simple Syrup FEEDTUBE PRN PRN Hypoglycemia Sodium Bicarbonate 325 mg 10/16/18 16:25 Sodium Bicarbonate FEEDTUBE PRN PRN For Clogged Feeding Tube Sodium Chloride 10 ml 10/15/18 10:00 10/21/18 21:05 Sodium Chloride Flush Syringe 10 Ml IV 10 ml BID [place] Administration Sodium Chloride 10 ml 10/15/18 03:28 Sodium Chloride Flush Syringe 10 Ml IV PRN PRN LINE FLUSH Tenofovir Disoproxil Fumarate 300 mg 10/19/18 13:00 10/19/18 14:00 Viread PO 300 mg Q96H [facility] Administration
[2018-10-22] MEDS: PULMICORT IH SCH ×2 (08:42→20:01)
[2018-10-22] MEDS: MEPRON PO SCH ×2 (09:05→21:27)
[2018-10-22] MEDS: PROzac PO SCH (09:05)
[2018-10-22] MEDS: NORVIR PO SCH (09:06)
[2018-10-22] MEDS: PEPCID IV SCH (09:06)
[2018-10-22] MEDS: PREZISTA PO SCH (09:06)
--- NOTE | 2018-10-22 09:11 | Progress Note ---
Assessment and Plan Assessment and plan: 58 year old man with history of HIV, toxoplasmosis, severe the reservoir deficits, syphilitic encephalopathy, history of polysubstance abuse including cocaine. He status post trach and trach traversal, has a g-tube still intact. The patient was brought from [facility] for respiratory distress and altered mental status Sepsis secondary to pneumonia, septic shock - ID is following him - Patient is on Mepron and cefazolin Acute kidney injury due to vasomotor nephropathy and ATN - IV fluids, nephrology input appreciated Hypernatremia - Hypotonic IV fluid, free water via g-tube Acute hypoxic respiratory failure - Continue oxygen via venti mask and BiPAP as tolerated Hypothyroidism - thyroid function tests show low T4 and low free T4, increased synthroid dose HIV-AIDS mgt per ID DVT prophylaxis with heparin subcutaneously back to [place] when improved Critical care time 35 minutes History Interval history: fever resolved, less agitated, still sob, but having less respiratory distress no vomiting, no reported cp, no seizures Hospitalist Physical - Physical exam Narrative exam: General.: Appears ill and toxic , emaciated HEENT: Moist mucous membranes, extraocular muscles intact, no lymphadenopathy Neck: supple Cardiac: S1-S2 heard Lungs: crackles, diminished Abdomen: soft , nontender, nondistended, bowel sounds positive Extremities: no edema clubbing or cyanosis, contracted extremities Skin: no rash or lesions Neurologic: altered, moved extremiites, does not obey commands Psych: does not obey commands, lethargic - Constitutional Vitals: Temp Pulse Resp BP Pulse Ox 96.8 F L 105 H 12 114/60 97 10/22/18 07:43 10/22/18 07:30 10/22/18 07:30 10/22/18 07:30 10/22/18 07:30 General appearance: Present: severe distress, cachectic Results - Labs CBC & Chem 7: 10/22/18 19:28 10/23/18 04:23 Labs: Laboratory Last Values WBC 10.4 K/mm3 (4.5-11.0) 10/18/18 00:50 RBC 3.23 M/mm3 (3.65-5.03) L 10/18/18 00:50 Hgb 8.9 gm/dl (11.8-15.2) L 10/18/18 00:50 Hct 27.4 % (35.5-45.6) L D 10/18/18 00:50 MCV 85 fl (84-94) 10/18/18 00:50 MCH 28 pg (28-32) 10/18/18 00:50 MCHC 32 % (32-34) 10/18/18 00:50 RDW 19.6 % (13.2-15.2) H 10/18/18 00:50 Plt Count 56 K/mm3 (140-440) L 10/18/18 00:50 Lymph % (Auto) Meat [place]er 10/14/18 23:21 [place] % (Auto) Meat Cooler 10/14/18 23:21 Eos % (Auto) Meat Cooler 10/14/18 23:21 Baso % (Auto) Meat Cooler 10/14/18 23:21 Lymph # Meat [place]er 10/14/18 23:21 [place] # Meat Cooler 10/14/18 23:21 Eos # Meat Cooler 10/14/18 23:21 Baso # Meat Cooler 10/14/18 23:21 Add Manual Diff Complete 10/18/18 00:50 Total Counted 100 10/18/18 00:50 Seg Neutrophils % Meat Cooler 10/18/18 00:50 Seg Neuts % (Manual) 81.0 % (40.0-70.0) H 10/18/18 00:50 7.0 % 10/18/18 00:50 9.0 % (13.4-35.0) L 10/18/18 00:50 Reactive Lymphs % (Man) 0 % 10/18/18 00:50 3.0 % (0.0-7.3) 10/18/18 00:50 0 % (0.0-4.3) 10/18/18 00:50 0 % (0.0-1.8) 10/18/18 00:50 0 % 10/18/18 00:50 0 % 10/18/18 00:50 0 % 10/18/18 00:50 0 % 10/18/18 00:50 Nucleated RBC % 1.0 % (0.0-0.9) H 10/18/18 00:50 Seg Neutrophils # Meat Cooler 10/14/18 23:21 Seg Neutrophils # Man 8.4 K/mm3 (1.8-7.7) H 10/18/18 00:50 Band Neutrophils # 0.7 K/mm3 10/18/18 00:50 Abs Lymphs (Manual) 309 cells/uL (850-3900) L 10/15/18 15:13 0.9 K/mm3 (1.2-5.4) L 10/18/18 00:50 Abs React Lymphs (Man) 0.0 K/mm3 10/18/18 00:50 0.3 K/mm3 (0.0-0.8) 10/18/18 00:50 0.0 K/mm3 (0.0-0.4) 10/18/18 00:50 0.0 K/mm3 (0.0-0.1) 10/18/18 00:50 0.0 K/mm3 10/18/18 00:50 0.0 K/mm3 10/18/18 00:50 0.0 K/mm3 10/18/18 00:50 Blast Cells # 0.0 K/mm3 10/18/18 00:50 WBC Morphology Not Reportable 10/18/18 00:50 WBC Morphology TNR 10/18/18 00:50 Hypersegmented Neuts Not Reportable 10/18/18 00:50 Hyposegmented Neuts Not Reportable 10/18/18 00:50 Hypogranular Neuts Not Reportable 10/18/18 00:50 Not Reportable 10/18/18 00:50 Not Reportable 10/18/18 00:50 Not Reportable 10/18/18 00:50 Not Reportable 10/18/18 00:50 Not Reportable 10/18/18 00:50 Not Reportable 10/18/18 00:50 Appears decreased 10/18/18 00:50 Not Reportable 10/18/18 00:50 Plt Clumps, EDTA Not Reportable 10/18/18 00:50 Not Reportable 10/18/18 00:50 Not Reportable 10/18/18 00:50 Not Reportable 10/18/18 00:50 Plt Morphology Comment Not Reportable 10/18/18 00:50 RBC Morphology Not Reportable 10/18/18 00:50 Dimorphic RBCs Not Reportable 10/18/18 00:50 Not Reportable 10/18/18 00:50 Not Reportable 10/18/18 00:50 Not Reportable 10/18/18 00:50 1+ 10/18/18 00:50 Not Reportable 10/18/18 00:50 Not Reportable 10/18/18 00:50 Not Reportable 10/18/18 00:50 Not Reportable 10/18/18 00:50 Not Reportable 10/18/18 00:50 Few 10/18/18 00:50 Not Reportable 10/18/18 00:50 Not Reportable 10/18/18 00:50 Not Reportable 10/18/18 00:50 Not Reportable 10/18/18 00:50 Not Reportable 10/18/18 00:50 Not Reportable 10/18/18 00:50 Not Reportable 10/18/18 00:50 1+ 10/18/18 00:50 Not Reportable 10/18/18 00:50 Acanthocytes (Spur) Not Reportable 10/18/18 00:50 Rouleaux Not Reportable 10/18/18 00:50 Not Reportable 10/18/18 00:50 Not Reportable 10/18/18 00:50 Not Reportable 10/18/18 00:50 Not Reportable 10/18/18 00:50 Hem Pathologist Commnt No 10/18/18 00:50 POC ABG pH 7.347 (7.35-7.45) L 10/18/18 11:56 POC ABG pCO2 33.1 (35-45) L 10/15/18 13:03 POC ABG pO2 72 (80-105) L 10/18/18 11:56 POC ABG HCO3 14.5 (22-26 mml/L) 10/18/18 11:56 POC ABG Total CO2 15 (23-27mmol/L) 10/18/18 11:56 POC ABG O2 Sat 94 10/18/18 11:56 POC ABG Base Excess -11 ((-2) - (+3)mmol/L) 10/18/18 11:56 50 % 10/18/18 11:56 Sodium 151 mmol/L (137-145) H 10/22/18 04:29 Potassium 3.4 mmol/L (3.6-5.0) L D 10/22/18 04:29 Chloride 119.4 mmol/L (98-107) H 10/22/18 04:29 Carbon Dioxide 18 mmol/L (22-30) L 10/22/18 04:29 17 mmol/L 10/22/18 04:29 BUN 84 mg/dL (9-20) H 10/22/18 04:29 1.4 mg/dL (0.8-1.5) 10/22/18 04:29 Estimated GFR > 60 ml/min 10/22/18 04:29 60 % 10/22/18 04:29 Glucose 125 mg/dL (75-100) H 10/22/18 04:29 POC Glucose 113 (70-105) H 10/22/18 06:03 Lactic Acid 1.40 mmol/L (0.7-2.0) 10/17/18 14:41 Calcium 8.0 mg/dL (8.4-10.2) L 10/22/18 04:29 Phosphorus 3.40 mg/dL (2.5-4.5) 10/18/18 16:41 Magnesium 2.10 mg/dL (1.7-2.3) 10/19/18 05:02 0.40 mg/dL (0.1-1.2) 10/16/18 05:18 AST 522 units/L (5-40) H 10/16/18 05:18 ALT 167 units/L (7-56) H 10/16/18 05:18 61 units/L (35-129) 10/16/18 05:18 0.034 ng/mL (0.00-0.029) H 10/14/18 23:21 21.20 mg/dL (0.00-1.30) H 10/17/18 14:41 6.4 g/dL (6.3-8.2) 10/16/18 05:18 1.5 g/dL (3.9-5) L 10/16/18 05:18 0.3 % 10/16/18 05:18 Triglycerides 63 mg/dL (2-149) 10/14/18 23:21 Cholesterol 59 mg/dL (50-199) 10/14/18 23:21 13 mg/dL (50-130) L 10/14/18 23:21 28 mg/dL (40-59) L 10/14/18 23:21 2.10 % 10/14/18 23:21 TSH 2.560 mlU/mL (0.270-4.200) 10/16/18 12:40 Free T4 0.38 ng/dL (0.76-1.46) L 10/16/18 12:40 1.8 ug/dL (4.0-12.0) L 10/16/18 12:40 Lindsay (Yellow) 10/14/18 01:27 Cloudy (Clear) 10/14/18 01:27 5.0 (5.0-7.0) 10/14/18 01:27 Ur Specific [place] 1.020 (1.003-1.030) 10/14/18 01:27 100 mg/dl mg/dL (Negative) 10/14/18 01:27 Neg mg/dL (Negative) 10/14/18 01:27 Neg mg/dL (Negative) 10/14/18 01:27 Lg (Negative) 10/14/18 01:27 Neg (Negative) 10/14/18 01:27 Neg (Negative) 10/14/18 01:27 2.0 mg/dL (<2.0) 10/14/18 01:27 Ur Leukocyte Esterase Neg (Negative) 10/14/18 01:27 6.0 /HPF (0.0-6.0) 10/14/18 01:27 95.0 /HPF (0.0-6.0) 10/14/18 01:27 U Epithel Cells (Auto) < 1.0 /HPF (0-13.0) 10/14/18 01:27 Amorphous Crystals 3+ 10/14/18 01:27 Hyaline Casts 4 /LPF 10/14/18 01:27 Granular Casts 2 /LPF 10/14/18 01:27 1+ /HPF 10/14/18 01:27 36.3 mg/dL (0.1-20.0) H 10/17/18 19:45 Protein/Creatinin Ratio 1.35 10/17/18 19:45 46 mmol/L 10/17/18 19:45 39.3 mmolL (110-250) L 10/17/18 19:45 49 mg/dL (5-11.8) H 10/17/18 19:45 Random Vancomycin 7.6 ug/mL (0-40.0) 10/17/18 05:20 76 mg/dL (82-185) L 10/17/18 19:03 21 mg/dL (15-53) 10/17/18 19:03 Lymph Enumerat CD4/CD8 0.84 (0.86-5.00) L 10/15/18 15:13 % CD3 Cells 60 % (57-85) 10/15/18 15:13 187 cells/uL (840-3060) L 10/15/18 15:13 % CD4 Cells 28 % (30-61) L 10/15/18 15:13 88 cells/uL (490-1740) L 10/15/18 15:13 % CD8 Cells 34 % (12-42) 10/15/18 15:13 104 cells/uL (180-1170) L 10/15/18 15:13 % CD19 Cells 27 % (6-29) 10/15/18 15:13 82 cells/uL (110-660) L 10/15/18 15:13 HIV-1 RNA PCR copies/ml <20 Copies/mL H 10/15/18 15:13 <1.30 Log cps/mL H 10/15/18 15:13 Active Medications - Current Medications Current Medications: Generic Name Dose Route Start Last Admin Trade Name Freq PRN Reason Stop Dose Admin Acetaminophen 650 mg 10/15/18 03:28 10/21/18 18:41 Tylenol PO 650 mg Q4H PRN Administration Pain MILD(1-3)/Fever >100.5/DELGADO Albuterol 2.5 mg 10/16/18 10:30 Proventil IH Q4HRT PRN Shortness Of Breath Albuterol/Ipratropium 1 ampul 10/15/18 14:00 10/22/18 08:35 Duoneb *Not For Prn Use* IH 1 ampul Q6HRT BLOSSOM Administration Lipase/Protease/Amylase 1 each 10/16/18 16:25 Pancreazbette Lema 10,500 Unit FEEDTUBE PRN PRN For Clogged Feeding Tube Aspirin 325 mg 10/17/18 10:00 10/21/18 10:08 Aspirin FEEDTUBE 325 mg DAILY BLOSSOM Administration Atorvastatin Calcium 20 mg 10/16/18 22:00 10/21/18 21:05 Lipitor FEEDTUBE 20 mg HS BLOSOSM Administration Atovaquone 750 mg 10/19/18 16:00 10/22/18 09:05 Mepron PO 750 mg BID BLOSSOM Administration Bisacodyl 10 mg 10/16/18 10:[address] DAILY PRN Constipation Budesonide 0.5 mg 10/15/18 20:00 10/22/18 08:42 Pulmicort IH 0.5 mg Q12HRT BLOSSOM Administration Cholecalciferol 2,000 unit 10/17/18 10:00 10/21/18 10:08 Vitamin D3 FEEDTUBE 2,000 unit QAM BLOSSOM Administration Darunavir 800 mg 10/19/18 13:00 10/22/18 09:06 Prezista PO 800 mg QDAY BLOSSOM Administration Dextrose 50 ml 10/21/18 17:33 D50w (25gm) Syringe IV PRN PRN Hypoglycemia Docusate Sodium 100 mg 10/16/18 10:30 Colace FEEDTUBE Q12H PRN Constipation/STOOL SOFTENER Famotidine 20 mg 10/15/18 10:00 10/22/18 09:06 Pepcid IV 20 mg QAM BLOSSOM Administration Fluoxetine HCl 40 mg 10/17/18 10:00 10/22/18 09:05 Prozac PO 40 mg QDAY BLOSSOM Administration Norepinephrine 4 mg in 250 mls @ 7.5 mls/hr 10/15/18 13:00 10/18/18 04:45 Levophed Drip 4 Mg/Ns 250 Ml IV 4 mcg/min TITR BLOSSOM 15 mls/hr Administration Protocol 2 MCG/MIN Potassium Chloride 10 meq in 100 mls @ 100 mls/hr 10/22/18 06:00 10/22/18 09:07 Kcl 10meq/100ml IV 10/22/18 09:59 100 mls/hr Q1H BLOSSOM Administration Dextrose 1,000 mls @ 125 mls/hr 10/22/18 06:00 10/22/18 06:17 D5w IV 125 mls/hr DIRECT BLOSSOM Administration Cefazolin Sodium 2 gm/ Sodium 100 mls @ 100 mls/hr 10/22/18 10:00 Chloride IV Q12HR BLOSSOM Insulin Human Regular 0 units 10/21/18 18:00 10/22/18 06:27 Humulin R SUB-Q Not Given Q6HR BLOSSOM Protocol Lamivudine 150 mg 10/22/18 10:00 10/22/18 09:05 Epivir PO 150 mg DAILY BLOSSOM Administration Levothyroxine Sodium 75 mcg 10/18/18 06:00 10/22/18 06:04 Synthroid PO 75 mcg DAILY@0600 BLOSSOM Administration Methylprednisolone Sodium Succinate 40 mg 10/16/18 14:00 10/22/18 06:04 Solu-Medrol IV 40 mg Q8HR BLOSSOM Administration Metoclopramide HCl 10 mg 10/21/18 17:33 10/22/18 06:18 Reglan IV 10 mg Q8H PRN Administration Nausea And Vomiting Morphine Sulfate 2 mg 10/15/18 03:28 Morphine IV Q4H PRN Pain, Moderate (4-6) Ondansetron HCl 4 mg 10/15/18 03:28 Zofran IV Q8H PRN Nausea And Vomiting Polyethylene Glycol 17 gm 10/16/18 10:30 Miralax 3350 FEEDTUBE DAILY PRN Constipation Quetiapine Fumarate 100 mg 10/16/18 11:00 10/21/18 19:28 Seroquel FEEDTUBE Not Given Q8H BLOSSOM Ritonavir 100 mg 10/19/18 12:00 10/22/18 09:06 Norvir PO 100 mg DAILY BLOSSOM Administration Scopolamine 1 each 10/16/18 11:00 10/19/18 10:10 Transderm-Scop TD 1 each Q72H BLOSSOM Administration Senna 17.2 mg 10/16/18 22:00 10/21/18 21:05 Senokot FEEDTUBE 17.2 mg HS BLOSSOM Administration Simple Syrup 15 ml 10/16/18 16:25 Simple Syrup FEEDTUBE PRN PRN Hypoglycemia Simple Syrup 30 ml 10/16/18 16:25 Simple Syrup FEEDTUBE PRN PRN Hypoglycemia Sodium Bicarbonate 325 mg 10/16/18 16:25 Sodium Bicarbonate FEEDTUBE PRN PRN For Clogged Feeding Tube Sodium Chloride 10 ml 10/15/18 10:00 10/21/18 21:05 Sodium Chloride Flush Syringe 10 Ml IV 10 ml BID BLOSSOM Administration Sodium Chloride 10 ml 10/15/18 03:28 Sodium Chloride Flush Syringe 10 Ml IV PRN PRN LINE FLUSH Tenofovir Disoproxil Fumarate 300 mg 10/22/18 10:00 Viread PO Q48HR FORMERLY [facility], [facility]–1983 Nutrition/Malnutrition Assess - Dietary Evaluation Nutrition/Malnutrition Findings: Nutrition Notes Start: 10/16/18 16:06 Freq: Status: Active Protocol: Document 10/21/18 10:25 RD (Rec: 10/21/18 10:35 RD [id number]) Co-Sign 10/21/18 10:25 LP Nutrition Notes Initial or Follow up Brief Note Current Diagnosis COPD,Sepsis,Respiratory Failure,Stroke Other Pertinent Diagnosis HIV/AIDS, Pneu, PEG Current Diet Vital AF 1.2 @ 50 mL/hr Labs/Tests B BUN:90 Creat: 1.6 Pertinent Medications Solu-Medrol Height 5 ft 3 in Weight 57.6 kg Alicia Body Weight (kg) 56.36 BMI 22.4 Subjective/Other Information RD screen to manage TF. Per RN note, gastric residuals of 650 mL on 10/20/18. RN decided to keep TF the same and recommend to MD adding Reglan to the pt's care. Nutrition Intervention Follow-Up By: 10/23/18 Additional Comments f/u: residuals
[2018-10-22] MEDS: SODIUM CHLORIDE FLUSH SYRINGE 10 ML IV SCH ×2 (09:35→21:27)
[2018-10-22] MEDS: ceFAZolin 2 GM in NACL 0.9% 100 ML IV SCH ×2 (09:50→21:38)
[2018-10-22] MEDS ORDERED: VIREAD PO SCH (10:00)
[2018-10-22] MEDS ORDERED: EPIVIR PO SCH (10:00)
[2018-10-22] MEDS: VITAMIN D3 FEEDTUBE SCH (11:23)
[2018-10-22] MEDS: ASPIRIN FEEDTUBE SCH (11:24)
[2018-10-22] MEDS: TRANSDERM-SCOP TD SCH (11:34)
[2018-10-22 15:30] LABS: BUN/Creatinine Ratio 55; Blood Urea Nitrogen 71 mg/dL (9-20); Calcium 7.6 mg/dL (8.4-10.2); Hemolysis Index 1
--- NOTE | 2018-10-22 16:39 | Progress Note ---
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 Acute renal failure (likely due to dehydration) H/O cocaine abuse Anemia (multi-factorial) - repeat CXR pending - normothermic now and off bear hugger - repeat lactate WNL and CRP equivocal; will not change clinical and anti- infective therapies now - continue BIPAP scheduled qhs - continue aspiration precautions - continue bronchodilators with pulmonary hygiene per RT - continue prn levophed for target MAP > 65 mmHg - 2D ECHO showed severe pulmonary HTN (will see if can tolerate revatio prior to discharge) - continue conservative volume strategies - continue free water flushes for hypernatremia - continue solumedrol at 40 mg IV daily re: Azotemia - stopped Lovenox re: thrombocytopenia - continue enteral nutrition as tolerated - continue GI prophylaxis - nephrology evaluation ongoing - complete Anti-infectives per ID rec's - Monitor renal indices closely - Avoid nephrotoxic agents, adjust all medications for CrCL - Strict intake and output monitoring - Accuchecks with glycemic control. Target glucose of 140-180 mg/dL - Maintenance of sleep -wake cycle - Mobility as tolerated by hemodynamics - Influenza and pneumonia vaccination per protocol ..discussed in ICU-IDT rounds PROGNOSIS: GUARDED CONDITION: CRITICAL CODE STATUS: FULL CODE The high probability of a clinically significant, sudden or life-threatening deterioration of the [respiratory] system(s) required my full and direct attention, intervention and personal management. The aggregate critical care time was [32] minutes without overlap. Time includes spent on; [x] Data Review and interpretation [x] Patient assessment and monitoring of vital signs [x] Documentation [x] Medication orders and management Subjective Date of service: 10/22/18 Principal diagnosis: Ac Hypoxemic Resp Failure; Pneumonia (HAP); Acute encephalopathy ; HIV/AIDS Interval history: Patient is seen today for: Acute Hypoxemic Respiratory Failure; Right midlung pneumonia (HAP); H/O Tracheostomy; COPD; Acute encephalopathy ; HIV/AIDS (viral load and CD4 unknown); H/o toxoplasmosis; H/o syphilitic encephalopathy Seen and examined at bedside; 24hour events reviewed; nursing and respiratory care staff consulted; no adverse overnight events reported to me; resting peacefully in bed; remains on supplemental oxygen; no emesis or overt aspi ration; no seizures reported; AMS is persistent Objective Vital Signs - 12hr 10/22/18 10/22/18 10/22/18 04:45 05:00 05:15 Temperature Pulse Rate 102 H 101 H 102 H Pulse Rate [ Bilateral] Pulse Rate [ From Monitor] Respiratory 16 13 15 Rate Respiratory Rate [Bilateral ] Blood Pressure 109/59 101/57 99/56 O2 Sat by Pulse 100 100 99 Oximetry 10/22/18 10/22/18 10/22/18 05:30 05:45 06:00 Temperature Pulse Rate 101 H 100 H 101 H Pulse Rate [ Bilateral] Pulse Rate [ From Monitor] Respiratory 17 15 13 Rate Respiratory Rate [Bilateral ] Blood Pressure 101/54 101/55 97/52 O2 Sat by Pulse 100 100 98 Oximetry 10/22/18 10/22/18 10/22/18 06:15 06:30 06:45 Temperature Pulse Rate 100 H 101 H 99 H Pulse Rate [ Bilateral] Pulse Rate [ From Monitor] Respiratory 13 14 14 Rate Respiratory Rate [Bilateral ] Blood Pressure 97/56 106/58 107/57 O2 Sat by Pulse 97 98 99 Oximetry 10/22/18 10/22/18 10/22/18 07:00 07:15 07:30 Temperature Pulse Rate 100 H 102 H 105 H Pulse Rate [ Bilateral] Pulse Rate [ From Monitor] Respiratory 15 17 12 Rate Respiratory Rate [Bilateral ] Blood Pressure 108/53 107/61 114/60 O2 Sat by Pulse 99 98 97 Oximetry 10/22/18 10/22/18 10/22/18 07:43 07:45 08:00 Temperature 96.8 F L Pulse Rate 101 H 108 H Pulse Rate [ 105 H Bilateral] Pulse Rate [ 115 H From Monitor] Respiratory 16 18 Rate Respiratory 18 Rate [Bilateral ] Blood Pressure 100/63 108/60 O2 Sat by Pulse 99 97 Oximetry 10/22/18 10/22/18 10/22/18 08:15 08:30 08:45 Temperature Pulse Rate 104 H 106 H 106 H Pulse Rate [ 106 H Bilateral] Pulse Rate [ From Monitor] Respiratory 17 16 17 Rate Respiratory 18 Rate [Bilateral ] Blood Pressure 106/61 110/62 112/64 O2 Sat by Pulse 96 96 96 Oximetry 10/22/18 10/22/18 10/22/18 09:00 09:15 09:30 Temperature Pulse Rate 110 H 113 H 112 H Pulse Rate [ Bilateral] Pulse Rate [ From Monitor] Respiratory 16 18 13 Rate Respiratory Rate [Bilateral ] Blood Pressure 108/62 108/59 108/60 O2 Sat by Pulse 96 94 92 Oximetry 10/22/18 10/22/18 10/22/18 09:45 10:00 10:15 Temperature Pulse Rate 114 H 99 H 115 H Pulse Rate [ Bilateral] Pulse Rate [ From Monitor] Respiratory 19 22 17 Rate Respiratory Rate [Bilateral ] Blood Pressure 97/59 87/66 96/60 O2 Sat by Pulse 93 91 96 Oximetry 10/22/18 10/22/18 10/22/18 10:30 10:45 11:00 Temperature Pulse Rate 115 H 113 H 112 H Pulse Rate [ Bilateral] Pulse Rate [ From Monitor] Respiratory 19 18 18 Rate Respiratory Rate [Bilateral ] Blood Pressure 106/61 101/57 101/54 O2 Sat by Pulse 96 89 95 Oximetry 10/22/18 10/22/18 10/22/18 11:15 11:30 11:45 Temperature Pulse Rate 113 H 112 H 109 H Pulse Rate [ Bilateral] Pulse Rate [ From Monitor] Respiratory 18 18 18 Rate Respiratory Rate [Bilateral ] Blood Pressure 104/56 97/53 95/55 O2 Sat by Pulse 98 98 97 Oximetry 10/22/18 10/22/18 10/22/18 12:00 12:15 12:30 Temperature 97.3 F L Pulse Rate 111 H 110 H 109 H Pulse Rate [ Bilateral] Pulse Rate [ 110 H From Monitor] Respiratory 17 19 18 Rate Respiratory Rate [Bilateral ] Blood Pressure 96/59 103/60 107/60 O2 Sat by Pulse 98 99 98 Oximetry 10/22/18 10/22/18 10/22/18 12:45 13:00 13:15 Temperature Pulse Rate 109 H 107 H 108 H Pulse Rate [ Bilateral] Pulse Rate [ From Monitor] Respiratory 21 18 20 Rate Respiratory Rate [Bilateral ] Blood Pressure 107/62 106/56 107/60 O2 Sat by Pulse 98 98 97 Oximetry 10/22/18 10/22/18 10/22/18 13:30 13:45 14:00 Temperature Pulse Rate 107 H 109 H 111 H Pulse Rate [ Bilateral] Pulse Rate [ From Monitor] Respiratory 19 24 17 Rate Respiratory Rate [Bilateral ] Blood Pressure 106/56 114/59 109/61 O2 Sat by Pulse 98 97 98 Oximetry 10/22/18 10/22/18 10/22/18 14:15 14:30 14:45 Temperature Pulse Rate 109 H 111 H 109 H Pulse Rate [ Bilateral] Pulse Rate [ From Monitor] Respiratory 22 19 17 Rate Respiratory Rate [Bilateral ] Blood Pressure 105/55 101/62 99/55 O2 Sat by Pulse 99 92 94 Oximetry 10/22/18 10/22/18 10/22/18 15:00 15:15 15:30 Temperature Pulse Rate 109 H 109 H 108 H Pulse Rate [ Bilateral] Pulse Rate [ From Monitor] Respiratory 17 17 19 Rate Respiratory Rate [Bilateral ] Blood Pressure 109/56 88/57 94/54 O2 Sat by Pulse 94 96 96 Oximetry 10/22/18 10/22/18 15:45 16:00 Temperature 97.6 F Pulse Rate 111 H 105 H Pulse Rate [ Bilateral] Pulse Rate [ 103 H From Monitor] Respiratory 19 15 Rate Respiratory Rate [Bilateral ] Blood Pressure 101/54 105/56 O2 Sat by Pulse 96 97 Oximetry Constitutional: appears uncomfortable, other (middle aged and chronically ill looking AAM with increased resp effort at rest) Eyes: non-icteric ENT: oropharynx moist, other (mallampati 2) Neck: supple, no lymphadenopathy, no JVD, other (no thyromegaly) Effort: mildly labored Ascultation: Bilateral: diminished breath sounds, rhonchi Percussion: Bilateral: not dull Cardiovascular: regular rate and rhythm Gastrointestinal: normoactive bowel sounds, soft, non-tender, non-distended Integumentary: other (poor turgor) Extremities: no cyanosis, no edema, pulses normal, no ischemia or petechiae Neurologic: pupils equal and round, other (+ cognitive dysfunction; lethargic today) Psychiatric: other (flat ) CBC and BMP: 10/24/18 09:58 10/24/18 06:42 ABG, PT/INR, D-dimer: ABG POC ABG pH 7.347 (7.35-7.45) L 10/18/18 11:56 POC ABG pO2 72 (80-105) L 10/18/18 11:56 POC ABG HCO3 14.5 (22-26 mml/L) 10/18/18 11:56 POC ABG Total CO2 15 (23-27mmol/L) 10/18/18 11:56 POC ABG O2 Sat 94 10/18/18 11:56 Abnormal lab findings: Abnormal Labs 10/14/18 10/14/18 10/14/18 23:21 23:21 23:21 WBC RBC Hgb 10.2 L Hct 32.0 L MCH MCHC RDW 18.9 H Plt Count 100 L Seg Neuts % (Manual) 34.0 L Lymphocytes % (Manual) Monocytes % (Manual) Nucleated RBC % Seg Neutrophils # Man 1.7 L Abs Lymphs (Manual) Lymphocytes # (Manual) 0.8 L POC ABG pH POC ABG pCO2 POC ABG pO2 Sodium 156 H Potassium Chloride 117.8 H Carbon Dioxide 19 L BUN 124 H Creatinine 4.8 H Glucose POC Glucose Lactic Acid 4.90 H* Calcium Magnesium AST 72 H ALT Troponin T 0.034 H C-Reactive Protein Albumin 1.9 L LDL Cholesterol Direct 13 L HDL Cholesterol 28 L Free T4 Thyroxine (T4) Urine Creatinine Urine Chloride Urine Total Protein Complement C3 Lymph Enumerat CD4/CD8 Absolute CD3 Count % CD4 Cells Absolute CD4 Count Absolute CD8 Count Absolute CD19 Count HIV-1 RNA PCR copies/ml HIV-1 RNA (PCR) log 10/15/18 10/15/18 10/15/18 00:50 03:46 04:29 WBC RBC Hgb Hct MCH MCHC RDW Plt Count Seg Neuts % (Manual) Lymphocytes % (Manual) Monocytes % (Manual) Nucleated RBC % Seg Neutrophils # Man Abs Lymphs (Manual) Lymphocytes # (Manual) POC ABG pH POC ABG pCO2 POC ABG pO2 Sodium Potassium Chloride Carbon Dioxide BUN Creatinine Glucose POC Glucose Lactic Acid 3.30 H* 2.20 H* 2.20 H* Calcium Magnesium AST ALT Troponin T C-Reactive Protein Albumin LDL Cholesterol Direct HDL Cholesterol Free T4 Thyroxine (T4) Urine Creatinine Urine Chloride Urine Total Protein Complement C3 Lymph Enumerat CD4/CD8 Absolute CD3 Count % CD4 Cells Absolute CD4 Count Absolute CD8 Count Absolute CD19 Count HIV-1 RNA PCR copies/ml HIV-1 RNA (PCR) log 10/15/18 10/15/18 10/15/18 05:37 06:18 09:16 WBC RBC Hgb Hct MCH MCHC RDW Plt Count Seg Neuts % (Manual) Lymphocytes % (Manual) Monocytes % (Manual) Nucleated RBC % Seg Neutrophils # Man Abs Lymphs (Manual) Lymphocytes # (Manual) POC ABG pH POC ABG pCO2 POC ABG pO2 Sodium Potassium Chloride Carbon Dioxide BUN Creatinine Glucose POC Glucose Lactic Acid 2.30 H* 2.50 H* 3.10 H* Calcium Magnesium AST ALT Troponin T C-Reactive Protein Albumin LDL Cholesterol Direct HDL Cholesterol Free T4 Thyroxine (T4) Urine Creatinine Urine Chloride Urine Total Protein Complement C3 Lymph Enumerat CD4/CD8 Absolute CD3 Count % CD4 Cells Absolute CD4 Count Absolute CD8 Count Absolute CD19 Count HIV-1 RNA PCR copies/ml HIV-1 RNA (PCR) log 10/15/18 10/15/18 10/15/18 09:16 13:03 15:13 WBC RBC Hgb Hct MCH MCHC RDW Plt Count Seg Neuts % (Manual) Lymphocytes % (Manual) Monocytes % (Manual) Nucleated RBC % Seg Neutrophils # Man Abs Lymphs (Manual) Lymphocytes # (Manual) POC ABG pH 7.308 L POC ABG pCO2 33.1 L POC ABG pO2 70 L Sodium 158 H Potassium Chloride 121.1 H Carbon Dioxide 19 L BUN 120 H Creatinine 4.3 H Glucose 119 H POC Glucose Lactic Acid 2.70 H* Calcium 8.0 L Magnesium AST ALT Troponin T C-Reactive Protein Albumin LDL Cholesterol Direct HDL Cholesterol Free T4 Thyroxine (T4) Urine Creatinine Urine Chloride Urine Total Protein Complement C3 Lymph Enumerat CD4/CD8 Absolute CD3 Count % CD4 Cells Absolute CD4 Count Absolute CD8 Count Absolute CD19 Count HIV-1 RNA PCR copies/ml HIV-1 RNA (PCR) log 10/15/18 10/15/18 10/16/18 15:13 15:13 05:18 WBC 4.2 L RBC Hgb 10.8 L Hct 34.9 L MCH 27 L MCHC 31 L RDW 19.6 H Plt Count 38 L Seg Neuts % (Manual) 39.0 L Lymphocytes % (Manual) 9.0 L Monocytes % (Manual) 12.0 H Nucleated RBC % Seg Neutrophils # Man 1.6 L Abs Lymphs (Manual) 309 L Lymphocytes # (Manual) 0.4 L POC ABG pH POC ABG pCO2 POC ABG pO2 Sodium Potassium Chloride Carbon Dioxide BUN Creatinine Glucose POC Glucose Lactic Acid Calcium Magnesium AST ALT Troponin T C-Reactive Protein Albumin LDL Cholesterol Direct HDL Cholesterol Free T4 Thyroxine (T4) Urine Creatinine Urine Chloride Urine Total Protein Complement C3 Lymph Enumerat CD4/CD8 0.84 L Absolute CD3 Count 187 L % CD4 Cells 28 L Absolute CD4 Count 88 L Absolute CD8 Count 104 L Absolute CD19 Count 82 L HIV-1 RNA PCR copies/ml <20 H HIV-1 RNA (PCR) log <1.30 H 10/16/18 10/16/18 10/16/18 05:18 12:40 12:40 WBC RBC Hgb Hct MCH MCHC RDW Plt Count Seg Neuts % (Manual) Lymphocytes % (Manual) Monocytes % (Manual) Nucleated RBC % Seg Neutrophils # Man Abs Lymphs (Manual) Lymphocytes # (Manual) POC ABG pH POC ABG pCO2 POC ABG pO2 Sodium 161 H* Potassium 3.5 L Chloride 130.6 H Carbon Dioxide 18 L BUN 105 H Creatinine 3.4 H Glucose POC Glucose Lactic Acid Calcium Magnesium AST 522 H ALT 167 H Troponin T C-Reactive Protein Albumin 1.5 L LDL Cholesterol Direct HDL Cholesterol Free T4 0.38 L Thyroxine (T4) 1.8 L Urine Creatinine Urine Chloride Urine Total Protein Complement C3 Lymph Enumerat CD4/CD8 Absolute CD3 Count % CD4 Cells Absolute CD4 Count Absolute CD8 Count Absolute CD19 Count HIV-1 RNA PCR copies/ml HIV-1 RNA (PCR) log 10/16/18 10/16/18 10/17/18 15:19 23:43 00:17 WBC RBC Hgb Hct MCH MCHC RDW Plt Count Seg Neuts % (Manual) Lymphocytes % (Manual) Monocytes % (Manual) Nucleated RBC % Seg Neutrophils # Man Abs Lymphs (Manual) Lymphocytes # (Manual) POC ABG pH POC ABG pCO2 POC ABG pO2 62 L 63 L Sodium Potassium Chloride Carbon Dioxide BUN Creatinine Glucose POC Glucose 174 H Lactic Acid Calcium Magnesium AST ALT Troponin T C-Reactive Protein Albumin LDL Cholesterol Direct HDL Cholesterol Free T4 Thyroxine (T4) Urine Creatinine Urine Chloride Urine Total Protein Complement C3 Lymph Enumerat CD4/CD8 Absolute CD3 Count % CD4 Cells Absolute CD4 Count Absolute CD8 Count Absolute CD19 Count HIV-1 RNA PCR copies/ml HIV-1 RNA (PCR) log 10/17/18 10/17/18 10/17/18 06:55 11:57 14:41 WBC RBC Hgb Hct MCH MCHC RDW Plt Count Seg Neuts % (Manual) Lymphocytes % (Manual) Monocytes % (Manual) Nucleated RBC % Seg Neutrophils # Man Abs Lymphs (Manual) Lymphocytes # (Manual) POC ABG pH POC ABG pCO2 POC ABG pO2 Sodium 150 H D Potassium 3.3 L Chloride 122.3 H Carbon Dioxide 18 L BUN 91 H Creatinine 2.9 H Glucose 140 H POC Glucose 129 H 174 H Lactic Acid Calcium 8.0 L Magnesium 1.60 L AST ALT Troponin T C-Reactive Protein Albumin LDL Cholesterol Direct HDL Cholesterol Free T4 Thyroxine (T4) Urine Creatinine Urine Chloride Urine Total Protein Complement C3 Lymph Enumerat CD4/CD8 Absolute CD3 Count % CD4 Cells Absolute CD4 Count Absolute CD8 Count Absolute CD19 Count HIV-1 RNA PCR copies/ml HIV-1 RNA (PCR) log 10/17/18 10/17/18 10/17/18 14:41 18:56 19:03 WBC RBC Hgb Hct MCH MCHC RDW Plt Count Seg Neuts % (Manual) Lymphocytes % (Manual) Monocytes % (Manual) Nucleated RBC % Seg Neutrophils # Man Abs Lymphs (Manual) Lymphocytes # (Manual) POC ABG pH POC ABG pCO2 POC ABG pO2 Sodium Potassium Chloride Carbon Dioxide BUN Creatinine Glucose POC Glucose 125 H Lactic Acid Calcium Magnesium AST ALT Troponin T C-Reactive Protein 21.20 H Albumin LDL Cholesterol Direct HDL Cholesterol Free T4 Thyroxine (T4) Urine Creatinine Urine Chloride Urine Total Protein Complement C3 76 L Lymph Enumerat CD4/CD8 Absolute CD3 Count % CD4 Cells Absolute CD4 Count Absolute CD8 Count Absolute CD19 Count HIV-1 RNA PCR copies/ml HIV-1 RNA (PCR) log 10/17/18 10/17/18 10/17/18 19:45 21:24 23:54 WBC RBC Hgb Hct MCH MCHC RDW Plt Count Seg Neuts % (Manual) Lymphocytes % (Manual) Monocytes % (Manual) Nucleated RBC % Seg Neutrophils # Man Abs Lymphs (Manual) Lymphocytes # (Manual) POC ABG pH 7.328 L POC ABG pCO2 POC ABG pO2 66 L Sodium Potassium Chloride Carbon Dioxide BUN Creatinine Glucose POC Glucose 128 H Lactic Acid Calcium Magnesium AST ALT Troponin T C-Reactive Protein Albumin LDL Cholesterol Direct HDL Cholesterol Free T4 Thyroxine (T4) Urine Creatinine 36.3 H Urine Chloride 39.3 L Urine Total Protein 49 H Complement C3 Lymph Enumerat CD4/CD8 Absolute CD3 Count % CD4 Cells Absolute CD4 Count Absolute CD8 Count Absolute CD19 Count HIV-1 RNA PCR copies/ml HIV-1 RNA (PCR) log 10/18/18 10/18/18 10/18/18 00:50 05:55 11:56 WBC RBC 3.23 L Hgb 8.9 L Hct 27.4 L D MCH MCHC RDW 19.6 H Plt Count 56 L Seg Neuts % (Manual) 81.0 H Lymphocytes % (Manual) 9.0 L Monocytes % (Manual) Nucleated RBC % 1.0 H Seg Neutrophils # Man 8.4 H Abs Lymphs (Manual) Lymphocytes # (Manual) 0.9 L POC ABG pH 7.347 L POC ABG pCO2 POC ABG pO2 72 L Sodium Potassium Chloride Carbon Dioxide BUN Creatinine Glucose POC Glucose 147 H Lactic Acid Calcium Magnesium AST ALT Troponin T C-Reactive Protein Albumin LDL Cholesterol Direct HDL Cholesterol Free T4 Thyroxine (T4) Urine Creatinine Urine Chloride Urine Total Protein Complement C3 Lymph Enumerat CD4/CD8 Absolute CD3 Count % CD4 Cells Absolute CD4 Count Absolute CD8 Count Absolute CD19 Count HIV-1 RNA PCR copies/ml HIV-1 RNA (PCR) log 10/18/18 10/18/18 10/19/18 16:41 23:18 05:02 WBC RBC Hgb Hct MCH MCHC RDW Plt Count Seg Neuts % (Manual) Lymphocytes % (Manual) Monocytes % (Manual) Nucleated RBC % Seg Neutrophils # Man Abs Lymphs (Manual) Lymphocytes # (Manual) POC ABG pH POC ABG pCO2 POC ABG pO2 Sodium 151 H 150 H Potassium Chloride 122.8 H 123.1 H Carbon Dioxide 16 L 16 L BUN 91 H 87 H Creatinine 2.3 H 2.2 H Glucose 158 H 116 H POC Glucose 148 H Lactic Acid Calcium 8.0 L Magnesium AST ALT Troponin T C-Reactive Protein Albumin LDL Cholesterol Direct HDL Cholesterol Free T4 Thyroxine (T4) Urine Creatinine Urine Chloride Urine Total Protein Complement C3 Lymph Enumerat CD4/CD8 Absolute CD3 Count % CD4 Cells Absolute CD4 Count Absolute CD8 Count Absolute CD19 Count HIV-1 RNA PCR copies/ml HIV-1 RNA (PCR) log 10/19/18 10/19/18 10/19/18 05:51 11:03 17:16 WBC RBC Hgb Hct MCH MCHC RDW Plt Count Seg Neuts % (Manual) Lymphocytes % (Manual) Monocytes % (Manual) Nucleated RBC % Seg Neutrophils # Man Abs Lymphs (Manual) Lymphocytes # (Manual) POC ABG pH POC ABG pCO2 POC ABG pO2 Sodium Potassium Chloride Carbon Dioxide BUN Creatinine Glucose POC Glucose 123 H 171 H 181 H Lactic Acid Calcium Magnesium AST ALT Troponin T C-Reactive Protein Albumin LDL Cholesterol Direct HDL Cholesterol Free T4 Thyroxine (T4) Urine Creatinine Urine Chloride Urine Total Protein Complement C3 Lymph Enumerat CD4/CD8 Absolute CD3 Count % CD4 Cells Absolute CD4 Count Absolute CD8 Count Absolute CD19 Count HIV-1 RNA PCR copies/ml HIV-1 RNA (PCR) log 10/19/18 10/20/18 10/20/18 23:52 05:18 06:06 WBC RBC Hgb Hct MCH MCHC RDW Plt Count Seg Neuts % (Manual) Lymphocytes % (Manual) Monocytes % (Manual) Nucleated RBC % Seg Neutrophils # Man Abs Lymphs (Manual) Lymphocytes # (Manual) POC ABG pH POC ABG pCO2 POC ABG pO2 Sodium 147 H Potassium Chloride 116.9 H Carbon Dioxide 18 L BUN 89 H Creatinine 1.8 H Glucose 208 H POC Glucose 195 H 223 H Lactic Acid Calcium 7.8 L Magnesium AST ALT Troponin T C-Reactive Protein Albumin LDL Cholesterol Direct HDL Cholesterol Free T4 Thyroxine (T4) Urine Creatinine Urine Chloride Urine Total Protein Complement C3 Lymph Enumerat CD4/CD8 Absolute CD3 Count % CD4 Cells Absolute CD4 Count Absolute CD8 Count Absolute CD19 Count HIV-1 RNA PCR copies/ml HIV-1 RNA (PCR) log 10/20/18 10/20/18 10/21/18 12:14 22:42 04:44 WBC RBC Hgb Hct MCH MCHC RDW Plt Count Seg Neuts % (Manual) Lymphocytes % (Manual) Monocytes % (Manual) Nucleated RBC % Seg Neutrophils # Man Abs Lymphs (Manual) Lymphocytes # (Manual) POC ABG pH POC ABG pCO2 POC ABG pO2 Sodium 146 H Potassium Chloride 115.6 H Carbon Dioxide 19 L BUN 90 H Creatinine 1.6 H Glucose 168 H POC Glucose 238 H 164 H Lactic Acid Calcium Magnesium AST ALT Troponin T C-Reactive Protein Albumin LDL Cholesterol Direct HDL Cholesterol Free T4 Thyroxine (T4) Urine Creatinine Urine Chloride Urine Total Protein Complement C3 Lymph Enumerat CD4/CD8 Absolute CD3 Count % CD4 Cells Absolute CD4 Count Absolute CD8 Count Absolute CD19 Count HIV-1 RNA PCR copies/ml HIV-1 RNA (PCR) log 10/21/18 10/21/18 10/22/18 05:27 17:44 01:29 WBC RBC Hgb Hct MCH MCHC RDW Plt Count Seg Neuts % (Manual) Lymphocytes % (Manual) Monocytes % (Manual) Nucleated RBC % Seg Neutrophils # Man Abs Lymphs (Manual) Lymphocytes # (Manual) POC ABG pH POC ABG pCO2 POC ABG pO2 Sodium Potassium Chloride Carbon Dioxide BUN Creatinine Glucose POC Glucose 172 H 167 H 175 H Lactic Acid Calcium Magnesium AST ALT Troponin T C-Reactive Protein Albumin LDL Cholesterol Direct HDL Cholesterol Free T4 Thyroxine (T4) Urine Creatinine Urine Chloride Urine Total Protein Complement C3 Lymph Enumerat CD4/CD8 Absolute CD3 Count % CD4 Cells Absolute CD4 Count Absolute CD8 Count Absolute CD19 Count HIV-1 RNA PCR copies/ml HIV-1 RNA (PCR) log 10/22/18 10/22/18 10/22/18 04:29 06:03 11:17 WBC RBC Hgb Hct MCH MCHC RDW Plt Count Seg Neuts % (Manual) Lymphocytes % (Manual) Monocytes % (Manual) Nucleated RBC % Seg Neutrophils # Man Abs Lymphs (Manual) Lymphocytes # (Manual) POC ABG pH POC ABG pCO2 POC ABG pO2 Sodium 151 H Potassium 3.4 L D Chloride 119.4 H Carbon Dioxide 18 L BUN 84 H Creatinine Glucose 125 H POC Glucose 113 H 174 H Lactic Acid Calcium 8.0 L Magnesium AST ALT Troponin T C-Reactive Protein Albumin LDL Cholesterol Direct HDL Cholesterol Free T4 Thyroxine (T4) Urine Creatinine Urine Chloride Urine Total Protein Complement C3 Lymph Enumerat CD4/CD8 Absolute CD3 Count % CD4 Cells Absolute CD4 Count Absolute CD8 Count Absolute CD19 Count HIV-1 RNA PCR copies/ml HIV-1 RNA (PCR) log 10/22/18 10/22/18 14:14 14:45 WBC RBC Hgb Hct MCH MCHC RDW Plt Count Seg Neuts % (Manual) Lymphocytes % (Manual) Monocytes % (Manual) Nucleated RBC % Seg Neutrophils # Man Abs Lymphs (Manual) Lymphocytes # (Manual) POC ABG pH POC ABG pCO2 POC ABG pO2 Sodium 147 H Potassium Chloride 118.0 H Carbon Dioxide 18 L BUN 71 H Creatinine Glucose 178 H POC Glucose 180 H Lactic Acid Calcium 7.6 L Magnesium AST ALT Troponin T C-Reactive Protein Albumin LDL Cholesterol Direct HDL Cholesterol Free T4 Thyroxine (T4) Urine Creatinine Urine Chloride Urine Total Protein Complement C3 Lymph Enumerat CD4/CD8 Absolute CD3 Count % CD4 Cells Absolute CD4 Count Absolute CD8 Count Absolute CD19 Count HIV-1 RNA PCR copies/ml HIV-1 RNA (PCR) log Allied health notes reviewed: nursing
[2018-10-22 16:48] LABS: Myeloperoxidase Antibody <1.0 AI (<1.0)
[2018-10-22 19:44] LABS: Hematocrit 22.7 % (35.5-45.6); Hemoglobin 7.1 gm/dl (11.8-15.2); Mean Corpuscular HGB Conc 32 % (32-34); Mean Corpuscular Volume 84 fl (84-94); Red Cell Distribution Width 19.6 % (13.2-15.2)
[2018-10-22 20:06] LABS: Platelet Count 87 K/mm3 (140-440)
[2018-10-22 20:08] LABS: Alanine Aminotransferase 10 units/L (7-56); Albumin 1.7 g/dL (3.9-5); BUN/Creatinine Ratio 56; Blood Urea Nitrogen 67 mg/dL (9-20); Calcium 7.4 mg/dL (8.4-10.2); Hemolysis Index 6
[2018-10-22] MEDS: SENOKOT FEEDTUBE SCH (21:28)
[2018-10-22 21:39] LABS: Band Neutrophils # (Manual) 0.2 K/mm3; Basophils % (Manual) 0 % (0.0-1.8); Eosinophils % (Manual) 0 % (0.0-4.3); Total Cells Counted 100
[2018-10-22 21:40] LABS: Anisocytosis 1+; Hypochromasia 1+; Platelet Estimate Consistent w Auto; Target Cells Few
[2018-10-22] MEDS ORDERED: K-DUR PO ONE (21:45)
[2018-10-23 01:18] LABS: Alanine Aminotransferase 9 units/L (7-56); Albumin 1.5 g/dL (3.9-5); BUN/Creatinine Ratio 55; Blood Urea Nitrogen 66 mg/dL (9-20); Calcium 7.9 mg/dL (8.4-10.2); Hemolysis Index 6
[2018-10-23] MEDS: DUONEB *Not for PRN Use IH SCH ×4 (03:23→20:28)
[2018-10-23 05:01] LABS: BUN/Creatinine Ratio 49; Blood Urea Nitrogen 59 mg/dL (9-20); Calcium 7.4 mg/dL (8.4-10.2); Hemolysis Index 0
[2018-10-23] MEDS: SOLU-Medrol IV SCH ×3 (05:24→22:14)
[2018-10-23] MEDS: SYNTHROID PO SCH (05:24)
[2018-10-23] MEDS: HumuLIN R SUB-Q SCH ×3 (05:43→18:00)
--- NOTE | 2018-10-23 09:00 | Progress Note ---
Assessment and Plan - Patient Problems (1) Acute kidney failure with tubular necrosis Current Visit: Yes Status: Acute Plan to address problem: Kidney function is improving. Continue current management (2) Hypernatremia Current Visit: Yes Status: Acute Plan to address problem: Significant free water deficit. Sodium improving with free water replacement. Continue free water and follow up Sodium (3) Acute and chronic respiratory failure with hypoxia Current Visit: Yes Status: Acute Plan to address problem: On BiPAP. Management by pulmonary (4) HCAP (healthcare-associated pneumonia) Current Visit: Yes Status: Acute Plan to address problem: Continue antibiotics appropriately dosed to the degree of kidney function. Follow cultures (5) HIV (human immunodeficiency virus infection) Current Visit: Yes Status: Chronic Qualifiers: Plan to address problem: Continue antiretrovirals and fu with infectious disease (6) Altered mental status Current Visit: No Status: Acute Qualifiers: Altered mental status type: somnolence Qualified Code(s): R40.0 - Somnolence Plan to address problem: Mental status a bit better. Baseline not known to me (7) Hypokalemia Current Visit: Yes Status: Acute Plan to address problem: Supplement potassium and follow-up level Subjective Date of service: 10/23/18 Principal diagnosis: Ac Hypoxemic Resp Failure; Pneumonia (HAP); Acute encephalopathy ; HIV/AIDS Interval history: Patient seen lying in bed. Nonverbal. Opens eyes to speech. Objective - Exam Narrative Exam: Frail, cachectic, middle-aged -[place] male in no acute distress HEENT: NCAT, pink oral mucous membrane Neck: Supple, no venous distention CVS: S1S2 RRR with no murmur, rub or gallop Chest: Low pitched rhonchi with scattered rales worse in right lower zone Abdomen: Protuberant, soft, nontender, no organomegaly, bowel sounds are present Extremities: No edema, muscle wasting Neuro: Eyes open, not following commands, nonverbal, - Vital Signs Vital signs: Vital Signs - 12hr 10/22/18 10/22/18 10/22/18 21:00 21:15 21:30 Temperature Pulse Rate 113 H 114 H 115 H Pulse Rate [ Bilateral] Pulse Rate [ From Monitor] Respiratory 19 20 19 Rate Respiratory Rate [Bilateral ] Blood Pressure 99/51 103/53 99/54 O2 Sat by Pulse 95 95 96 Oximetry 10/22/18 10/22/1819 21:45 22:00 22:15 Temperature Pulse Rate 115 H 114 H 113 H Pulse Rate [ Bilateral] Pulse Rate [ From Monitor] Respiratory 22 21 22 Rate Respiratory Rate [Bilateral ] Blood Pressure 105/54 102/51 102/51 O2 Sat by Pulse 95 96 96 Oximetry 10/22/18 10/22/18 10/22/18 22:30 22:45 23:00 Temperature Pulse Rate 113 H 115 H 115 H Pulse Rate [ Bilateral] Pulse Rate [ From Monitor] Respiratory 15 19 16 Rate Respiratory Rate [Bilateral ] Blood Pressure 105/54 105/54 101/55 O2 Sat by Pulse 95 96 94 Oximetry 10/22/18 10/22/18 10/22/18 23:15 23:30 23:45 Temperature Pulse Rate 110 H 115 H 115 H Pulse Rate [ Bilateral] Pulse Rate [ From Monitor] Respiratory 25 H 22 21 Rate Respiratory Rate [Bilateral ] Blood Pressure 105/54 111/57 111/57 O2 Sat by Pulse 98 97 97 Oximetry 10/22/18 10/23/18 10/23/18 23:50 00:00 00:03 Temperature 97.8 F Pulse Rate 113 H 115 H Pulse Rate [ Bilateral] Pulse Rate [ 114 H From Monitor] Respiratory 22 16 21 Rate Respiratory Rate [Bilateral ] Blood Pressure 111/57 107/57 107/57 O2 Sat by Pulse 96 96 97 Oximetry 10/23/18 10/23/18 10/23/18 00:15 00:30 00:45 Temperature Pulse Rate 111 H 113 H 114 H Pulse Rate [ Bilateral] Pulse Rate [ From Monitor] Respiratory 20 19 18 Rate Respiratory Rate [Bilateral ] Blood Pressure 107/57 108/60 108/60 O2 Sat by Pulse 96 96 96 Oximetry 10/23/18 10/23/18 10/23/18 01:00 01:15 01:30 Temperature Pulse Rate 113 H 113 H 112 H Pulse Rate [ Bilateral] Pulse Rate [ From Monitor] Respiratory 22 21 21 Rate Respiratory Rate [Bilateral ] Blood Pressure 113/59 113/59 105/58 O2 Sat by Pulse 97 96 98 Oximetry 10/23/18 10/23/18 10/23/18 01:45 02:00 02:16 Temperature Pulse Rate 111 H 111 H 110 H Pulse Rate [ 112 H Bilateral] Pulse Rate [ From Monitor] Respiratory 22 18 21 Rate Respiratory 21 Rate [Bilateral ] Blood Pressure 113/59 107/59 O2 Sat by Pulse 98 98 97 Oximetry 10/23/18 10/23/18 10/23/18 02:30 02:45 03:00 Temperature Pulse Rate 114 H 113 H 115 H Pulse Rate [ Bilateral] Pulse Rate [ From Monitor] Respiratory 17 28 H 24 Rate Respiratory Rate [Bilateral ] Blood Pressure 110/59 107/59 114/60 O2 Sat by Pulse 96 96 96 Oximetry 10/23/18 10/23/18 10/23/18 03:15 03:24 03:28 Temperature Pulse Rate 115 H 114 H Pulse Rate [ 114 H Bilateral] Pulse Rate [ From Monitor] Respiratory 21 21 Rate Respiratory 25 H Rate [Bilateral ] Blood Pressure 110/59 O2 Sat by Pulse 96 96 Oximetry 10/23/18 10/23/18 10/23/18 03:30 03:45 04:00 Temperature 98.5 F Pulse Rate 115 H 113 H 114 H Pulse Rate [ Bilateral] Pulse Rate [ 112 H From Monitor] Respiratory 22 20 21 Rate Respiratory Rate [Bilateral ] Blood Pressure 110/59 110/59 107/55 O2 Sat by Pulse 95 97 98 Oximetry 10/23/18 10/23/18 10/23/18 04:15 04:30 04:45 Temperature Pulse Rate 112 H 111 H 112 H Pulse Rate [ Bilateral] Pulse Rate [ From Monitor] Respiratory 25 H 22 22 Rate Respiratory Rate [Bilateral ] Blood Pressure 107/55 112/56 112/56 O2 Sat by Pulse 98 97 98 Oximetry 10/23/18 10/23/18 10/23/18 05:00 05:15 05:30 Temperature Pulse Rate 111 H 111 H 109 H Pulse Rate [ Bilateral] Pulse Rate [ From Monitor] Respiratory 21 22 17 Rate Respiratory Rate [Bilateral ] Blood Pressure 110/58 110/58 107/57 O2 Sat by Pulse 97 97 98 Oximetry 10/23/18 10/23/18 10/23/18 05:45 06:00 06:15 Temperature Pulse Rate 108 H 109 H 108 H Pulse Rate [ Bilateral] Pulse Rate [ From Monitor] Respiratory 19 22 22 Rate Respiratory Rate [Bilateral ] Blood Pressure 107/57 110/59 110/59 O2 Sat by Pulse 98 98 98 Oximetry 10/23/18 06:30 Temperature Pulse Rate 108 H Pulse Rate [ Bilateral] Pulse Rate [ From Monitor] Respiratory 19 Rate Respiratory Rate [Bilateral ] Blood Pressure 113/60 O2 Sat by Pulse 97 Oximetry - Lab 10/22/18 19:28 10/23/18 04:23 Most recent lab results Calcium 7.4 mg/dL (8.4-10.2) L 10/23/18 04:23 Phosphorus 3.40 mg/dL (2.5-4.5) 10/18/18 16:41 Magnesium 2.10 mg/dL (1.7-2.3) 10/19/18 05:02 36.3 mg/dL (0.1-20.0) H 10/17/18 19:45 46 mmol/L 10/17/18 19:45 49 mg/dL (5-11.8) H 10/17/18 19:45 Medications & Allergies - Medications Allergies/Adverse Reactions: Allergies No Known Allergies Allergy (Verified 08/27/18 10:38) Home Medications: Home Medications Medication Instructions Recorded Confirmed Last Taken Type Acetylcysteine 20% Oral [Mucomyst 3 ml INTRATRACH Q6H 03/28/18 03/28/18 Unknown History Oral] Aspirin [Aspirin TAB] 325 mg FEEDTUBE DAILY 03/28/18 03/28/18 Unknown History Atorvastatin Calcium [Lipitor] 20 mg FEEDTUBE HS 03/28/18 03/28/18 Unknown History Bisacodyl [Bisac-Evac] 10 mg RC DAILY PRN 03/28/18 03/28/18 Unknown History Cholecalciferol (Vitamin D3) 2,000 unit FEEDTUBE QAM 03/28/18 03/28/18 Unknown History [Vitamin D3] Docusate Sodium [Move It Along] 100 mg FEEDTUBE Q12H PRN 03/28/18 03/28/18 Unknown History Doxazosin Mesylate [Cardura] 1 mg FEEDTUBE HS 03/28/18 03/28/18 Unknown History Ergocalciferol [Vitamin D2] 1 cap FEEDTUBE QWEEK 03/28/18 03/28/18 Unknown History Gabapentin [Neurontin] 300 mg FEEDTUBE HS 03/28/18 03/28/18 Unknown History Haloperidol Decanoate [Haldol 50 mg IM Q4W 03/28/18 03/28/18 Unknown History Decanoate] Haloperidol Lactate [Haldol] 0.4 ml IM Q8H PRN 03/28/18 03/28/18 Unknown History Ipratropium/Albuterol Sulfate 1 ampul IH Q4HR 03/28/18 03/28/18 Unknown History [DUONEB *Not for PRN Use*] Polyethylene Glycol 3350 17 gm FEEDTUBE DAILY PRN 03/28/18 03/28/18 Unknown History [Smoothlax] Quetiapine Fumarate [Seroquel] 100 mg FEEDTUBE Q8H 03/28/18 03/28/18 Unknown History Scopolamine [Transderm-Scop] 1 each TD Q72H 03/28/18 03/28/18 Unknown History Sennosides [Senna Laxative] 17.2 mg FEEDTUBE HS 03/28/18 03/28/18 Unknown History lamiVUDine [Lamivudine] 30 ml FEEDTUBE QAM 03/28/18 03/28/18 Unknown History traMADol [Ultram 50 MG tab] 50 mg FEEDTUBE TID #10 tablet 03/31/18 Unknown Rx Bacitracin Zinc Oint [Antibiotic 1 applicatio TP BID #1 tube 08/22/18 Unknown R x Oint] ALBUTEROL NEB's [Proventil 0.083% 2.5 mg IH Q4HRT PRN nebu 09/01/18 Unknown Rx NEBS] Amoxicillin/K Clav Tab [Augmentin 875 each PO Q12HR #14 tablet 09/01/18 Unknown Rx 875MG TAB] Darunavir [Prezista] 800 mg PO QDAY tablet 09/01/18 Unknown Rx FLUoxetine [Prozac] 40 mg PO QDAY oral.liqd 09/01/18 Unknown Rx Famotidine [Pepcid] 20 mg PO BID tablet 09/01/18 Unknown Rx Levothyroxine [Synthroid] 50 mcg PO DAILY@0600 tablet 09/01/18 Unknown Rx Metoprolol [Lopressor TAB] 12.5 mg PO BID tablet 09/01/18 Unknown Rx Ritonavir [Norvir] 100 mg PO DAILY tab 09/01/18 Unknown Rx Tenofovir [Viread] 300 mg PO QDAY tablet 09/01/18 Unknown Rx Active Medications: Generic Name Dose Route Start Last Admin Trade Name Freq PRN Reason Stop Dose Admin Acetaminophen 650 mg 10/15/18 03:28 10/21/18 18:41 Tylenol PO 650 mg Q4H PRN Administration Pain MILD(1-3)/Fever >100.5/DELGADO Albuterol 2.5 mg 10/16/18 10:30 Proventil IH Q4HRT PRN Shortness Of Breath Albuterol/Ipratropium 1 ampul 10/15/18 14:00 10/23/18 03:23 Duoneb *Not For Prn Use* IH 1 ampul Q6HRT BLOSSOM Administration Lipase/Protease/Amylase 1 each 10/16/18 16:25 Pancrejoan Lema 10,500 Unit FEEDTUBE PRN PRN For Clogged Feeding Tube Aspirin 325 mg 10/17/18 10:00 10/22/18 11:24 Aspirin FEEDTUBE 325 mg DAILY BLOSSOM Administration Atorvastatin Calcium 20 mg 10/16/18 22:00 10/22/18 21:26 Lipitor FEEDTUBE 20 mg HS BLOSSOM Administration Atovaquone 750 mg 10/19/18 16:00 10/22/18 21:27 Mepron PO 750 mg BID BLOSSOM Administration Bisacodyl 10 mg 10/16/18 10:30 Dulcolax MI DAILY PRN Constipation Budesonide 0.5 mg 10/15/18 20:00 10/22/18 20:01 Pulmicort IH 0.5 mg Q12HRT BLOSSOM Administration Cholecalciferol 2,000 unit 10/17/18 10:00 10/22/18 11:23 Vitamin D3 FEEDTUBE 2,000 unit QAM BLOSSOM Administration Darunavir 800 mg 10/19/18 13:00 10/22/18 09:06 Prezista PO 800 mg QDAY BLOSSOM Administration Dextrose 50 ml 10/21/18 17:33 D50w (25gm) Syringe IV PRN PRN Hypoglycemia Docusate Sodium 100 mg 10/16/18 10:30 Colace FEEDTUBE Q12H PRN Constipation/STOOL SOFTENER Famotidine 20 mg 10/15/18 10:00 10/22/18 09:06 Pepcid IV 20 mg QAM BLOSSOM Administration Fluoxetine HCl 40 mg 10/17/18 10:00 10/22/18 09:05 Prozac PO 40 mg QDAY BLOSSOM Administration Norepinephrine 4 mg in 250 mls @ 7.5 mls/hr 10/15/18 13:00 10/18/18 04:45 Levophed Drip 4 Mg/Ns 250 Ml IV 4 mcg/min TITR BLOSSOM 15 mls/hr Administration Protocol 2 MCG/MIN Dextrose 1,000 mls @ 125 mls/hr 10/22/18 06:00 10/22/18 23:34 D5w IV 125 mls/hr DIRECT BLOSSOM Administration Cefazolin Sodium 2 gm/ Sodium 100 mls @ 100 mls/hr 10/22/18 10:00 10/22/18 21:38 Chloride IV 100 mls/hr Q12HR BLOSSOM Administration Insulin Human Regular 0 units 10/21/18 18:00 10/23/18 05:43 Humulin R SUB-Q 2 units Q6HR BLOSSOM Administration Protocol Lamivudine 150 mg 10/22/18 10:00 10/22/18 09:05 Epivir PO 150 mg DAILY BLOSSOM Administration Levothyroxine Sodium 75 mcg 10/18/18 06:00 10/23/18 05:24 Synthroid PO 75 mcg DAILY@0600 BLOSSOM Administration Methylprednisolone Sodium Succinate 40 mg 10/16/18 14:00 10/23/18 05:24 Solu-Medrol IV 40 mg Q8HR BLOSSOM Administration Metoclopramide HCl 10 mg 10/21/18 17:33 10/22/18 06:18 Reglan IV 10 mg Q8H PRN Administration Nausea And Vomiting Morphine Sulfate 2 mg 10/15/18 03:28 Morphine IV Q4H PRN Pain, Moderate (4-6) Ondansetron HCl 4 mg 10/15/18 03:28 Zofran IV Q8H PRN Nausea And Vomiting Polyethylene Glycol 17 gm 10/16/18 10:30 Miralax 3350 FEEDTUBE DAILY PRN Constipation Quetiapine Fumarate 100 mg 10/16/18 11:00 10/23/18 03:42 Seroquel FEEDTUBE Not Given Q8H BLOSSOM Ritonavir 100 mg 10/19/18 12:00 10/22/18 09:06 Norvir PO 100 mg DAILY BLOSSOM Administration Scopolamine 1 each 10/16/18 11:00 10/22/18 11:34 Transderm-Scop TD 1 each Q72H BLOSSOM Administration Senna 17.2 mg 10/16/18 22:00 10/22/18 21:28 Senokot FEEDTUBE Not Given HS BLOSSOM Simple Syrup 15 ml 10/16/18 16:25 Simple Syrup FEEDTUBE PRN PRN Hypoglycemia Simple Syrup 30 ml 10/16/18 16:25 Simple Syrup FEEDTUBE PRN PRN Hypoglycemia Sodium Bicarbonate 325 mg 10/16/18 16:25 Sodium Bicarbonate FEEDTUBE PRN PRN For Clogged Feeding Tube Sodium Chloride 10 ml 10/15/18 10:00 10/22/18 21:27 Sodium Chloride Flush Syringe 10 Ml IV 10 ml BID BLOSSOM Administration Sodium Chloride 10 ml 10/15/18 03:28 Sodium Chloride Flush Syringe 10 Ml IV PRN PRN LINE FLUSH Tenofovir Disoproxil Fumarate 300 mg 10/22/18 10:00 10/22/18 15:24 Viread PO 300 mg Q48HR BLOSSOM Administration
[2018-10-23] MEDS: PULMICORT IH SCH ×2 (09:05→20:28)
[2018-10-23] MEDS: D5W 1,000 ML IV SCH ×2 (09:27→18:22)
[2018-10-23] MEDS: VITAMIN D3 FEEDTUBE SCH (09:28)
[2018-10-23] MEDS: PEPCID IV SCH (09:28)
[2018-10-23] MEDS: ASPIRIN FEEDTUBE SCH (09:29)
[2018-10-23] MEDS: SODIUM CHLORIDE FLUSH SYRINGE 10 ML IV SCH ×2 (09:30→22:17)
--- NOTE | 2018-10-23 09:51 | Progress Note ---
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 Target blood glucose is 140-180 mg/dL -VTE prophylaxis -Continue Anti-infectives per ID , de-escalate based on culture - Monitor renal indices closely - Avoid nephrotoxic agents, adjust all medications for CrCL - Strict intake and output monitoring - Supportive transfusions as indicated - Maintenance of sleep -wake cycle - Mobility as tolerated by hemodynamics, for pressure ulcer prevention - Influenza and pneumonia vaccination per protocol -Supportive care - Goals of care need to be addressed with family or POA. - 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, meterman Subjective Date of service: 10/23/18 Principal diagnosis: Ac Hypoxemic Resp Failure; Pneumonia (HAP); Acute encephalopathy ; HIV/AIDS Interval history: Patient is seen today for: Acute Hypoxemic Respiratory Failure; Right midlung pneumonia (HAP); H/O Tracheostomy; COPD; Acute encephalopathy ; HIV/AIDS (viral load and CD4 unknown); H/o toxoplasmosis; H/o syphilitic encephalopathy Seen and examined at bedside; 24hour events reviewed; nursing and respiratory care staff consulted; no adverse overnight events reported to me; remains on supplemental oxygen; mental status changes persistent, no fevers, no vomiting, residual of 150ml overnight, tube feeding was held. Episodes of desaturation overnight placed on BIPAP, now on Venturi mask Objective Vital Signs - 12hr 10/22/18 10/22/18 10/22/18 22:00 22:15 22:30 Temperature Pulse Rate 114 H 113 H 113 H Pulse Rate [ Bilateral] Pulse Rate [ From Monitor] Respiratory 21 22 15 Rate Respiratory Rate [Bilateral ] Blood Pressure 102/51 102/51 105/54 O2 Sat by Pulse 96 96 95 Oximetry 10/22/18 10/22/18 10/22/18 22:45 23:00 23:15 Temperature Pulse Rate 115 H 115 H 110 H Pulse Rate [ Bilateral] Pulse Rate [ From Monitor] Respiratory 19 16 25 H Rate Respiratory Rate [Bilateral ] Blood Pressure 105/54 101/55 105/54 O2 Sat by Pulse 96 94 98 Oximetry 10/22/18 10/22/18 10/22/18 23:30 23:45 23:50 Temperature 97.8 F Pulse Rate 115 H 115 H Pulse Rate [ Bilateral] Pulse Rate [ 114 H From Monitor] Respiratory 22 21 22 Rate Respiratory Rate [Bilateral ] Blood Pressure 111/57 111/57 111/57 O2 Sat by Pulse 97 97 96 Oximetry 10/23/18 10/23/18 10/23/18 00:00 00:03 00:15 Temperature Pulse Rate 113 H 115 H 111 H Pulse Rate [ Bilateral] Pulse Rate [ From Monitor] Respiratory 16 21 20 Rate Respiratory Rate [Bilateral ] Blood Pressure 107/57 107/57 107/57 O2 Sat by Pulse 96 97 96 Oximetry 10/23/18 10/23/18 10/23/18 00:30 00:45 01:00 Temperature Pulse Rate 113 H 114 H 113 H Pulse Rate [ Bilateral] Pulse Rate [ From Monitor] Respiratory 19 18 22 Rate Respiratory Rate [Bilateral ] Blood Pressure 108/60 108/60 113/59 O2 Sat by Pulse 96 96 97 Oximetry 10/23/18 10/23/18 10/23/18 01:15 01:30 01:45 Temperature Pulse Rate 113 H 112 H 111 H Pulse Rate [ Bilateral] Pulse Rate [ From Monitor] Respiratory 21 21 22 Rate Respiratory Rate [Bilateral ] Blood Pressure 113/59 105/58 113/59 O2 Sat by Pulse 96 98 98 Oximetry 10/23/18 10/23/18 10/23/18 02:00 02:16 02:30 Temperature Pulse Rate 111 H 110 H 114 H Pulse Rate [ 112 H Bilateral] Pulse Rate [ From Monitor] Respiratory 18 21 17 Rate Respiratory 21 Rate [Bilateral ] Blood Pressure 107/59 110/59 O2 Sat by Pulse 98 97 96 Oximetry 10/23/18 10/23/18 10/23/18 02:45 03:00 03:15 Temperature Pulse Rate 113 H 115 H 115 H Pulse Rate [ Bilateral] Pulse Rate [ From Monitor] Respiratory 28 H 24 21 Rate Respiratory Rate [Bilateral ] Blood Pressure 107/59 114/60 110/59 O2 Sat by Pulse 96 96 96 Oximetry 10/23/18 10/23/18 10/23/18 03:24 03:28 03:30 Temperature Pulse Rate 114 H 115 H Pulse Rate [ 114 H Bilateral] Pulse Rate [ From Monitor] Respiratory 21 22 Rate Respiratory 25 H Rate [Bilateral ] Blood Pressure 110/59 O2 Sat by Pulse 96 95 Oximetry 10/23/18 10/23/18 10/23/18 03:45 04:00 04:15 Temperature 98.5 F Pulse Rate 113 H 114 H 112 H Pulse Rate [ Bilateral] Pulse Rate [ 112 H From Monitor] Respiratory 20 21 25 H Rate Respiratory Rate [Bilateral ] Blood Pressure 110/59 107/55 107/55 O2 Sat by Pulse 97 98 98 Oximetry 10/23/18 10/23/18 10/23/18 04:30 04:45 05:00 Temperature Pulse Rate 111 H 112 H 111 H Pulse Rate [ Bilateral] Pulse Rate [ From Monitor] Respiratory 22 22 21 Rate Respiratory Rate [Bilateral ] Blood Pressure 112/56 112/56 110/58 O2 Sat by Pulse 97 98 97 Oximetry 10/23/18 10/23/18 10/23/18 05:15 05:30 05:45 Temperature Pulse Rate 111 H 109 H 108 H Pulse Rate [ Bilateral] Pulse Rate [ From Monitor] Respiratory 22 17 19 Rate Respiratory Rate [Bilateral ] Blood Pressure 110/58 107/57 107/57 O2 Sat by Pulse 97 98 98 Oximetry 10/23/18 10/23/18 10/23/18 06:00 06:15 06:30 Temperature Pulse Rate 109 H 108 H 108 H Pulse Rate [ Bilateral] Pulse Rate [ From Monitor] Respiratory 22 22 19 Rate Respiratory Rate [Bilateral ] Blood Pressure 110/59 110/59 113/60 O2 Sat by Pulse 98 98 97 Oximetry 10/23/18 10/23/18 10/23/18 08:00 09:02 09:06 Temperature 98.5 F Pulse Rate 108 H Pulse Rate [ 106 H Bilateral] Pulse Rate [ From Monitor] Respiratory 24 Rate Respiratory 24 Rate [Bilateral ] Blood Pressure 108/60 O2 Sat by Pulse 98 Oximetry 10/23/18 09:25 Temperature Pulse Rate Pulse Rate [ 106 H Bilateral] Pulse Rate [ From Monitor] Respiratory Rate Respiratory 28 H Rate [Bilateral ] Blood Pressure O2 Sat by Pulse Oximetry Constitutional: appears uncomfortable, other (middle aged and chronically ill looking AAM with increased resp effort at rest) Eyes: non-icteric ENT: oropharynx moist, other (mallampati 2) Neck: supple, no lymphadenopathy, no JVD, other (no thyromegaly) Effort: mildly labored Ascultation: Bilateral: diminished breath sounds, rhonchi Percussion: Bilateral: not dull Cardiovascular: regular rate and rhythm Gastrointestinal: normoactive bowel sounds, soft, non-tender, non-distended Integumentary: other (poor turgor) Extremities: no cyanosis, no edema, pulses normal, no ischemia or petechiae Neurologic: pupils equal and round, other (+ cognitive dysfunction; lethargic today) Psychiatric: other (flat ) CBC and BMP: 10/22/18 19:28 10/23/18 04:23 ABG, PT/INR, D-dimer: ABG POC ABG pH 7.347 (7.35-7.45) L 10/18/18 11:56 POC ABG pO2 72 (80-105) L 10/18/18 11:56 POC ABG HCO3 14.5 (22-26 mml/L) 10/18/18 11:56 POC ABG Total CO2 15 (23-27mmol/L) 10/18/18 11:56 POC ABG O2 Sat 94 10/18/18 11:56 Abnormal lab findings: Abnormal Labs 10/14/18 10/14/18 10/14/18 23:21 23:21 23:21 WBC RBC Hgb 10.2 L Hct 32.0 L MCH MCHC RDW 18.9 H Plt Count 100 L Seg Neuts % (Manual) 34.0 L Lymphocytes % (Manual) Monocytes % (Manual) Nucleated RBC % Seg Neutrophils # Man 1.7 L Abs Lymphs (Manual) Lymphocytes # (Manual) 0.8 L POC ABG pH POC ABG pCO2 POC ABG pO2 Sodium 156 H Potassium Chloride 117.8 H Carbon Dioxide 19 L BUN 124 H Creatinine 4.8 H Glucose POC Glucose Lactic Acid 4.90 H* Calcium Magnesium AST 72 H ALT Troponin T 0.034 H C-Reactive Protein Total Protein Albumin 1.9 L LDL Cholesterol Direct 13 L HDL Cholesterol 28 L Free T4 Thyroxine (T4) Urine Creatinine Urine Chloride Urine Total Protein Complement C3 Lymph Enumerat CD4/CD8 Absolute CD3 Count % CD4 Cells Absolute CD4 Count Absolute CD8 Count Absolute CD19 Count HIV-1 RNA PCR copies/ml HIV-1 RNA (PCR) log 10/15/18 10/15/18 10/15/18 00:50 03:46 04:29 WBC RBC Hgb Hct MCH MCHC RDW Plt Count Seg Neuts % (Manual) Lymphocytes % (Manual) Monocytes % (Manual) Nucleated RBC % Seg Neutrophils # Man Abs Lymphs (Manual) Lymphocytes # (Manual) POC ABG pH POC ABG pCO2 POC ABG pO2 Sodium Potassium Chloride Carbon Dioxide BUN Creatinine Glucose POC Glucose Lactic Acid 3.30 H* 2.20 H* 2.20 H* Calcium Magnesium AST ALT Troponin T C-Reactive Protein Total Protein Albumin LDL Cholesterol Direct HDL Cholesterol Free T4 Thyroxine (T4) Urine Creatinine Urine Chloride Urine Total Protein Complement C3 Lymph Enumerat CD4/CD8 Absolute CD3 Count % CD4 Cells Absolute CD4 Count Absolute CD8 Count Absolute CD19 Count HIV-1 RNA PCR copies/ml HIV-1 RNA (PCR) log 10/15/18 10/15/18 10/15/18 05:37 06:18 09:16 WBC RBC Hgb Hct MCH MCHC RDW Plt Count Seg Neuts % (Manual) Lymphocytes % (Manual) Monocytes % (Manual) Nucleated RBC % Seg Neutrophils # Man Abs Lymphs (Manual) Lymphocytes # (Manual) POC ABG pH POC ABG pCO2 POC ABG pO2 Sodium Potassium Chloride Carbon Dioxide BUN Creatinine Glucose POC Glucose Lactic Acid 2.30 H* 2.50 H* 3.10 H* Calcium Magnesium AST ALT Troponin T C-Reactive Protein Total Protein Albumin LDL Cholesterol Direct HDL Cholesterol Free T4 Thyroxine (T4) Urine Creatinine Urine Chloride Urine Total Protein Complement C3 Lymph Enumerat CD4/CD8 Absolute CD3 Count % CD4 Cells Absolute CD4 Count Absolute CD8 Count Absolute CD19 Count HIV-1 RNA PCR copies/ml HIV-1 RNA (PCR) log 10/15/18 10/15/18 10/15/18 09:16 13:03 15:13 WBC RBC Hgb Hct MCH MCHC RDW Plt Count Seg Neuts % (Manual) Lymphocytes % (Manual) Monocytes % (Manual) Nucleated RBC % Seg Neutrophils # Man Abs Lymphs (Manual) Lymphocytes # (Manual) POC ABG pH 7.308 L POC ABG pCO2 33.1 L POC ABG pO2 70 L Sodium 158 H Potassium Chloride 121.1 H Carbon Dioxide 19 L BUN 120 H Creatinine 4.3 H Glucose 119 H POC Glucose Lactic Acid 2.70 H* Calcium 8.0 L Magnesium AST ALT Troponin T C-Reactive Protein Total Protein Albumin LDL Cholesterol Direct HDL Cholesterol Free T4 Thyroxine (T4) Urine Creatinine Urine Chloride Urine Total Protein Complement C3 Lymph Enumerat CD4/CD8 Absolute CD3 Count % CD4 Cells Absolute CD4 Count Absolute CD8 Count Absolute CD19 Count HIV-1 RNA PCR copies/ml HIV-1 RNA (PCR) log 10/15/18 10/15/18 10/16/18 15:13 15:13 05:18 WBC 4.2 L RBC Hgb 10.8 L Hct 34.9 L MCH 27 L MCHC 31 L RDW 19.6 H Plt Count 38 L Seg Neuts % (Manual) 39.0 L Lymphocytes % (Manual) 9.0 L Monocytes % (Manual) 12.0 H Nucleated RBC % Seg Neutrophils # Man 1.6 L Abs Lymphs (Manual) 309 L Lymphocytes # (Manual) 0.4 L POC ABG pH POC ABG pCO2 POC ABG pO2 Sodium Potassium Chloride Carbon Dioxide BUN Creatinine Glucose POC Glucose Lactic Acid Calcium Magnesium AST ALT Troponin T C-Reactive Protein Total Protein Albumin LDL Cholesterol Direct HDL Cholesterol Free T4 Thyroxine (T4) Urine Creatinine Urine Chloride Urine Total Protein Complement C3 Lymph Enumerat CD4/CD8 0.84 L Absolute CD3 Count 187 L % CD4 Cells 28 L Absolute CD4 Count 88 L Absolute CD8 Count 104 L Absolute CD19 Count 82 L HIV-1 RNA PCR copies/ml <20 H HIV-1 RNA (PCR) log <1.30 H 10/16/18 10/16/18 10/16/18 05:18 12:40 12:40 WBC RBC Hgb Hct MCH MCHC RDW Plt Count Seg Neuts % (Manual) Lymphocytes % (Manual) Monocytes % (Manual) Nucleated RBC % Seg Neutrophils # Man Abs Lymphs (Manual) Lymphocytes # (Manual) POC ABG pH POC ABG pCO2 POC ABG pO2 Sodium 161 H* Potassium 3.5 L Chloride 130.6 H Carbon Dioxide 18 L BUN 105 H Creatinine 3.4 H Glucose POC Glucose Lactic Acid Calcium Magnesium AST 522 H ALT 167 H Troponin T C-Reactive Protein Total Protein Albumin 1.5 L LDL Cholesterol Direct HDL Cholesterol Free T4 0.38 L Thyroxine (T4) 1.8 L Urine Creatinine Urine Chloride Urine Total Protein Complement C3 Lymph Enumerat CD4/CD8 Absolute CD3 Count % CD4 Cells Absolute CD4 Count Absolute CD8 Count Absolute CD19 Count HIV-1 RNA PCR copies/ml HIV-1 RNA (PCR) log 10/16/18 10/16/18 10/17/18 15:19 23:43 00:17 WBC RBC Hgb Hct MCH MCHC RDW Plt Count Seg Neuts % (Manual) Lymphocytes % (Manual) Monocytes % (Manual) Nucleated RBC % Seg Neutrophils # Man Abs Lymphs (Manual) Lymphocytes # (Manual) POC ABG pH POC ABG pCO2 POC ABG pO2 62 L 63 L Sodium Potassium Chloride Carbon Dioxide BUN Creatinine Glucose POC Glucose 174 H Lactic Acid Calcium Magnesium AST ALT Troponin T C-Reactive Protein Total Protein Albumin LDL Cholesterol Direct HDL Cholesterol Free T4 Thyroxine (T4) Urine Creatinine Urine Chloride Urine Total Protein Complement C3 Lymph Enumerat CD4/CD8 Absolute CD3 Count % CD4 Cells Absolute CD4 Count Absolute CD8 Count Absolute CD19 Count HIV-1 RNA PCR copies/ml HIV-1 RNA (PCR) log 10/17/18 10/17/18 10/17/18 06:55 11:57 14:41 WBC RBC Hgb Hct MCH MCHC RDW Plt Count Seg Neuts % (Manual) Lymphocytes % (Manual) Monocytes % (Manual) Nucleated RBC % Seg Neutrophils # Man Abs Lymphs (Manual) Lymphocytes # (Manual) POC ABG pH POC ABG pCO2 POC ABG pO2 Sodium 150 H D Potassium 3.3 L Chloride 122.3 H Carbon Dioxide 18 L BUN 91 H Creatinine 2.9 H Glucose 140 H POC Glucose 129 H 174 H Lactic Acid Calcium 8.0 L Magnesium 1.60 L AST ALT Troponin T C-Reactive Protein Total Protein Albumin LDL Cholesterol Direct HDL Cholesterol Free T4 Thyroxine (T4) Urine Creatinine Urine Chloride Urine Total Protein Complement C3 Lymph Enumerat CD4/CD8 Absolute CD3 Count % CD4 Cells Absolute CD4 Count Absolute CD8 Count Absolute CD19 Count HIV-1 RNA PCR copies/ml HIV-1 RNA (PCR) log 10/17/18 10/17/18 10/17/18 14:41 18:56 19:03 WBC RBC Hgb Hct MCH MCHC RDW Plt Count Seg Neuts % (Manual) Lymphocytes % (Manual) Monocytes % (Manual) Nucleated RBC % Seg Neutrophils # Man Abs Lymphs (Manual) Lymphocytes # (Manual) POC ABG pH POC ABG pCO2 POC ABG pO2 Sodium Potassium Chloride Carbon Dioxide BUN Creatinine Glucose POC Glucose 125 H Lactic Acid Calcium Magnesium AST ALT Troponin T C-Reactive Protein 21.20 H Total Protein Albumin LDL Cholesterol Direct HDL Cholesterol Free T4 Thyroxine (T4) Urine Creatinine Urine Chloride Urine Total Protein Complement C3 76 L Lymph Enumerat CD4/CD8 Absolute CD3 Count % CD4 Cells Absolute CD4 Count Absolute CD8 Count Absolute CD19 Count HIV-1 RNA PCR copies/ml HIV-1 RNA (PCR) log 10/17/18 10/17/18 10/17/18 19:45 21:24 23:54 WBC RBC Hgb Hct MCH MCHC RDW Plt Count Seg Neuts % (Manual) Lymphocytes % (Manual) Monocytes % (Manual) Nucleated RBC % Seg Neutrophils # Man Abs Lymphs (Manual) Lymphocytes # (Manual) POC ABG pH 7.328 L POC ABG pCO2 POC ABG pO2 66 L Sodium Potassium Chloride Carbon Dioxide BUN Creatinine Glucose POC Glucose 128 H Lactic Acid Calcium Magnesium AST ALT Troponin T C-Reactive Protein Total Protein Albumin LDL Cholesterol Direct HDL Cholesterol Free T4 Thyroxine (T4) Urine Creatinine 36.3 H Urine Chloride 39.3 L Urine Total Protein 49 H Complement C3 Lymph Enumerat CD4/CD8 Absolute CD3 Count % CD4 Cells Absolute CD4 Count Absolute CD8 Count Absolute CD19 Count HIV-1 RNA PCR copies/ml HIV-1 RNA (PCR) log 10/18/18 10/18/18 10/18/18 00:50 05:55 11:56 WBC RBC 3.23 L Hgb 8.9 L Hct 27.4 L D MCH MCHC RDW 19.6 H Plt Count 56 L Seg Neuts % (Manual) 81.0 H Lymphocytes % (Manual) 9.0 L Monocytes % (Manual) Nucleated RBC % 1.0 H Seg Neutrophils # Man 8.4 H Abs Lymphs (Manual) Lymphocytes # (Manual) 0.9 L POC ABG pH 7.347 L POC ABG pCO2 POC ABG pO2 72 L Sodium Potassium Chloride Carbon Dioxide BUN Creatinine Glucose POC Glucose 147 H Lactic Acid Calcium Magnesium AST ALT Troponin T C-Reactive Protein Total Protein Albumin LDL Cholesterol Direct HDL Cholesterol Free T4 Thyroxine (T4) Urine Creatinine Urine Chloride Urine Total Protein Complement C3 Lymph Enumerat CD4/CD8 Absolute CD3 Count % CD4 Cells Absolute CD4 Count Absolute CD8 Count Absolute CD19 Count HIV-1 RNA PCR copies/ml HIV-1 RNA (PCR) log 10/18/18 10/18/18 10/19/18 16:41 23:18 05:02 WBC RBC Hgb Hct MCH MCHC RDW Plt Count Seg Neuts % (Manual) Lymphocytes % (Manual) Monocytes % (Manual) Nucleated RBC % Seg Neutrophils # Man Abs Lymphs (Manual) Lymphocytes # (Manual) POC ABG pH POC ABG pCO2 POC ABG pO2 Sodium 151 H 150 H Potassium Chloride 122.8 H 123.1 H Carbon Dioxide 16 L 16 L BUN 91 H 87 H Creatinine 2.3 H 2.2 H Glucose 158 H 116 H POC Glucose 148 H Lactic Acid Calcium 8.0 L Magnesium AST ALT Troponin T C-Reactive Protein Total Protein Albumin LDL Cholesterol Direct HDL Cholesterol Free T4 Thyroxine (T4) Urine Creatinine Urine Chloride Urine Total Protein Complement C3 Lymph Enumerat CD4/CD8 Absolute CD3 Count % CD4 Cells Absolute CD4 Count Absolute CD8 Count Absolute CD19 Count HIV-1 RNA PCR copies/ml HIV-1 RNA (PCR) log 10/19/18 10/19/18 10/19/18 05:51 11:03 17:16 WBC RBC Hgb Hct MCH MCHC RDW Plt Count Seg Neuts % (Manual) Lymphocytes % (Manual) Monocytes % (Manual) Nucleated RBC % Seg Neutrophils # Man Abs Lymphs (Manual) Lymphocytes # (Manual) POC ABG pH POC ABG pCO2 POC ABG pO2 Sodium Potassium Chloride Carbon Dioxide BUN Creatinine Glucose POC Glucose 123 H 171 H 181 H Lactic Acid Calcium Magnesium AST ALT Troponin T C-Reactive Protein Total Protein Albumin LDL Cholesterol Direct HDL Cholesterol Free T4 Thyroxine (T4) Urine Creatinine Urine Chloride Urine Total Protein Complement C3 Lymph Enumerat CD4/CD8 Absolute CD3 Count % CD4 Cells Absolute CD4 Count Absolute CD8 Count Absolute CD19 Count HIV-1 RNA PCR copies/ml HIV-1 RNA (PCR) log 10/19/18 10/20/18 10/20/18 23:52 05:18 06:06 WBC RBC Hgb Hct MCH MCHC RDW Plt Count Seg Neuts % (Manual) Lymphocytes % (Manual) Monocytes % (Manual) Nucleated RBC % Seg Neutrophils # Man Abs Lymphs (Manual) Lymphocytes # (Manual) POC ABG pH POC ABG pCO2 POC ABG pO2 Sodium 147 H Potassium Chloride 116.9 H Carbon Dioxide 18 L BUN 89 H Creatinine 1.8 H Glucose 208 H POC Glucose 195 H 223 H Lactic Acid Calcium 7.8 L Magnesium AST ALT Troponin T C-Reactive Protein Total Protein Albumin LDL Cholesterol Direct HDL Cholesterol Free T4 Thyroxine (T4) Urine Creatinine Urine Chloride Urine Total Protein Complement C3 Lymph Enumerat CD4/CD8 Absolute CD3 Count % CD4 Cells Absolute CD4 Count Absolute CD8 Count Absolute CD19 Count HIV-1 RNA PCR copies/ml HIV-1 RNA (PCR) log 10/20/18 10/20/18 10/21/18 12:14 22:42 04:44 WBC RBC Hgb Hct MCH MCHC RDW Plt Count Seg Neuts % (Manual) Lymphocytes % (Manual) Monocytes % (Manual) Nucleated RBC % Seg Neutrophils # Man Abs Lymphs (Manual) Lymphocytes # (Manual) POC ABG pH POC ABG pCO2 POC ABG pO2 Sodium 146 H Potassium Chloride 115.6 H Carbon Dioxide 19 L BUN 90 H Creatinine 1.6 H Glucose 168 H POC Glucose 238 H 164 H Lactic Acid Calcium Magnesium AST ALT Troponin T C-Reactive Protein Total Protein Albumin LDL Cholesterol Direct HDL Cholesterol Free T4 Thyroxine (T4) Urine Creatinine Urine Chloride Urine Total Protein Complement C3 Lymph Enumerat CD4/CD8 Absolute CD3 Count % CD4 Cells Absolute CD4 Count Absolute CD8 Count Absolute CD19 Count HIV-1 RNA PCR copies/ml HIV-1 RNA (PCR) log 10/21/18 10/21/18 10/22/18 05:27 17:44 01:29 WBC RBC Hgb Hct MCH MCHC RDW Plt Count Seg Neuts % (Manual) Lymphocytes % (Manual) Monocytes % (Manual) Nucleated RBC % Seg Neutrophils # Man Abs Lymphs (Manual) Lymphocytes # (Manual) POC ABG pH POC ABG pCO2 POC ABG pO2 Sodium Potassium Chloride Carbon Dioxide BUN Creatinine Glucose POC Glucose 172 H 167 H 175 H Lactic Acid Calcium Magnesium AST ALT Troponin T C-Reactive Protein Total Protein Albumin LDL Cholesterol Direct HDL Cholesterol Free T4 Thyroxine (T4) Urine Creatinine Urine Chloride Urine Total Protein Complement C3 Lymph Enumerat CD4/CD8 Absolute CD3 Count % CD4 Cells Absolute CD4 Count Absolute CD8 Count Absolute CD19 Count HIV-1 RNA PCR copies/ml HIV-1 RNA (PCR) log 10/22/18 10/22/18 10/22/18 04:29 06:03 11:17 WBC RBC Hgb Hct MCH MCHC RDW Plt Count Seg Neuts % (Manual) Lymphocytes % (Manual) Monocytes % (Manual) Nucleated RBC % Seg Neutrophils # Man Abs Lymphs (Manual) Lymphocytes # (Manual) POC ABG pH POC ABG pCO2 POC ABG pO2 Sodium 151 H Potassium 3.4 L D Chloride 119.4 H Carbon Dioxide 18 L BUN 84 H Creatinine Glucose 125 H POC Glucose 113 H 174 H Lactic Acid Calcium 8.0 L Magnesium AST ALT Troponin T C-Reactive Protein Total Protein Albumin LDL Cholesterol Direct HDL Cholesterol Free T4 Thyroxine (T4) Urine Creatinine Urine Chloride Urine Total Protein Complement C3 Lymph Enumerat CD4/CD8 Absolute CD3 Count % CD4 Cells Absolute CD4 Count Absolute CD8 Count Absolute CD19 Count HIV-1 RNA PCR copies/ml HIV-1 RNA (PCR) log 10/22/18 10/22/18 10/22/18 14:14 14:45 18:16 WBC RBC Hgb Hct MCH MCHC RDW Plt Count Seg Neuts % (Manual) Lymphocytes % (Manual) Monocytes % (Manual) Nucleated RBC % Seg Neutrophils # Man Abs Lymphs (Manual) Lymphocytes # (Manual) POC ABG pH POC ABG pCO2 POC ABG pO2 Sodium 147 H Potassium Chloride 118.0 H Carbon Dioxide 18 L BUN 71 H Creatinine Glucose 178 H POC Glucose 180 H 185 H Lactic Acid Calcium 7.6 L Magnesium AST ALT Troponin T C-Reactive Protein Total Protein Albumin LDL Cholesterol Direct HDL Cholesterol Free T4 Thyroxine (T4) Urine Creatinine Urine Chloride Urine Total Protein Complement C3 Lymph Enumerat CD4/CD8 Absolute CD3 Count % CD4 Cells Absolute CD4 Count Absolute CD8 Count Absolute CD19 Count HIV-1 RNA PCR copies/ml HIV-1 RNA (PCR) log 10/22/18 10/22/18 10/22/18 19:28 19:28 19:31 WBC 20.5 H RBC 2.70 L Hgb 7.1 L Hct 22.7 L MCH 27 L MCHC RDW 19.6 H Plt Count 87 L Seg Neuts % (Manual) 93.0 H Lymphocytes % (Manual) 3.0 L Monocytes % (Manual) Nucleated RBC % Seg Neutrophils # Man 19.1 H Abs Lymphs (Manual) Lymphocytes # (Manual) 0.6 L POC ABG pH POC ABG pCO2 POC ABG pO2 Sodium 147 H Potassium 3.4 L Chloride 116.5 H Carbon Dioxide 18 L BUN 67 H Creatinine Glucose 182 H POC Glucose Lactic Acid Calcium 7.4 L Magnesium AST ALT Troponin T C-Reactive Protein 5.40 H Total Protein 5.0 L Albumin 1.7 L LDL Cholesterol Direct HDL Cholesterol Free T4 Thyroxine (T4) Urine Creatinine Urine Chloride Urine Total Protein Complement C3 Lymph Enumerat CD4/CD8 Absolute CD3 Count % CD4 Cells Absolute CD4 Count Absolute CD8 Count Absolute CD19 Count HIV-1 RNA PCR copies/ml HIV-1 RNA (PCR) log 10/22/18 10/23/18 10/23/18 23:36 00:11 04:23 WBC RBC Hgb Hct MCH MCHC RDW Plt Count Seg Neuts % (Manual) Lymphocytes % (Manual) Monocytes % (Manual) Nucleated RBC % Seg Neutrophils # Man Abs Lymphs (Manual) Lymphocytes # (Manual) POC ABG pH POC ABG pCO2 POC ABG pO2 Sodium Potassium 3.4 L 3.5 L Chloride 114.0 H 114.1 H Carbon Dioxide 19 L 19 L BUN 66 H 59 H Creatinine Glucose 176 H 153 H POC Glucose 174 H Lactic Acid Calcium 7.9 L 7.4 L Magnesium AST ALT Troponin T C-Reactive Protein Total Protein 5.2 L Albumin 1.5 L LDL Cholesterol Direct HDL Cholesterol Free T4 Thyroxine (T4) Urine Creatinine Urine Chloride Urine Total Protein Complement C3 Lymph Enumerat CD4/CD8 Absolute CD3 Count % CD4 Cells Absolute CD4 Count Absolute CD8 Count Absolute CD19 Count HIV-1 RNA PCR copies/ml HIV-1 RNA (PCR) log Allied health notes reviewed: nursing
[2018-10-23] MEDS: PREZISTA PO SCH (10:00)
[2018-10-23] MEDS ORDERED: VITAMIN D2 PO SCH (10:00)
[2018-10-23] MEDS: PROzac PO SCH (10:00)
[2018-10-23] MEDS: NORVIR PO SCH (10:00)
[2018-10-23] MEDS: EPIVIR PO SCH ×2 (10:00→22:10)
[2018-10-23] MEDS: VIREAD PO SCH (10:00)
[2018-10-23] MEDS: MEPRON PO SCH ×2 (10:00→22:13)
--- NOTE | 2018-10-23 10:34 | Progress Note ---
Assessment and Plan Cultures: Blood culture 10/14/2018 Staph Aureus, 2 out of 4 bottles, maguire suceptibile Blood culture 10/16/2018:no growth Urine culture 10/14/2018 negative Assessment: 58-year-old male with history of HIV AIDS, cachexia, toxoplasmosis, CVA with residual weakness, status post tracheostomy reversal for previous respiratory failure, syphilitic encephalitis, traumatic brain injury, cocaine and tobacco a buse, senior living resident at [place]; readmitted on 10/14/2018 due to AMS/lethargic and worsening shortness of breath for 34 hours. Patient is not able to provide a history, currently non verbal in mild respiratory distress. 1) Sepsis: Improved. off pressors. Etiology most likely pneumonia +/- staph aureus. 2) Pneumonia: possible aspiration pneumonia vs HAP. CXR showed probably COPD and right sided pneumonia. 3) MSSA Bacteremia:. Blood culture 10/14/2018 showed Staph aureaus 2 out of 4 bottles.. Source unclear. TTE shows no vegetation. Repeat blood cultures show no growth to date. 4) Recent bilateral pneumonia, R>L causing acute respiratory failure, it was fel t probably HCAP vs aspiration treated with cefepime and flagyl IV then changed to augmentin suspension 875mg PO BID for total 7 days. admission 08/27- 09/01/2018 5) HIV / AIDS: last viral load in March 2018 was undetectable and CD4 count was more than 700 on tenofovir, lamivudine, ritonavir boosted darunavir, current VL less than 20. CD4=88. Antiretrovirals restarted 10/19/18. 6) Acute on Chronic respiratory failure 7) Acute on chronic encephalopathy 8) Cachexia 9) DAMON: antibiotic renally dosed. Will contact pharmacy to restart ART therapy renally dosed Recommendations: - continue cefazolin 2gms IV every 8 hours, D9 - continue Mepron 750 bid for PJP prophylaxis - continue tenofovir, ritonavir, lamiivudine and darunavir - Anticipate discharge on Cefazolin 2 gm IB q8 hour for 2 weeks until 10/28/2018. Order placed for caser. Will follow Swati Mchugh MD Infectious Diseases Math Specialist [facility] M [phone] O [phone] Subjective Date of service: 10/23/18 Principal diagnosis: Ac Hypoxemic Resp Failure; Pneumonia (HAP); Acute encephalopathy ; HIV/AIDS Objective - Exam Narrative Exam: General appearance: somnolent in mild resp distress on venti mask Eyes: anicteric sclerae, moist conjunctivae; no lid-lag; PERRLA HENT: Atraumatic; oropharynx limited Neck: Trachea midline; supple, no thyromegaly or lymphadenopathy Lungs: king rhonchi CV: tachycardia Abdomen: Soft, non-tender; +PEG +diarrhea Extremities: No peripheral edema or extremity lymphadenopathy Skin: diffuse skin desquamation Psych: no agitated. Neuro: somnolent non verbal position - Constitutional Vitals: Vital Signs Temp Pulse Resp BP Pulse Ox 98.5 F 110 H 19 108/55 99 10/23/18 08:00 10/23/18 10:15 10/23/18 10:15 10/23/18 10:15 10/23/18 10:15 Temperature -Last 24 Hours Temperature 98.5 F Temperature 98.5 F Temperature 97.8 F Temperature 96.4 F Temperature 97.6 F Temperature 97.3 F - Labs CBC & Chem 7: 10/22/18 19:28 10/23/18 04:23 Labs: Abnormal lab results 10/22/18 10/22/18 10/22/18 Range/Units 11:17 14:14 14:45 WBC (4.5-11.0) K/mm3 RBC (3.65-5.03) M/mm3 Hgb (11.8-15.2) gm/dl Hct (35.5-45.6) % MCH (28-32) pg RDW (13.2-15.2) % Plt Count (140-440) K/mm3 Seg Neuts % (Manual) (40.0-70.0) % Lymphocytes % (Manual) (13.4-35.0) % Seg Neutrophils # Man (1.8-7.7) K/mm3 Lymphocytes # (Manual) (1.2-5.4) K/mm3 Sodium 147 H (137-145) mmol/L Potassium (3.6-5.0) mmol/L Chloride 118.0 H (98-107) mmol/L Carbon Dioxide 18 L (22-30) mmol/L BUN 71 H (9-20) mg/dL Glucose 178 H (75-100) mg/dL POC Glucose 174 H 180 H (70-105) Calcium 7.6 L (8.4-10.2) mg/dL C-Reactive Protein (0.00-1.30) mg/dL Total Protein (6.3-8.2) g/dL Albumin (3.9-5) g/dL 10/22/18 10/22/18 10/22/18 Range/Units 18:16 19:28 19:28 WBC 20.5 H (4.5-11.0) K/mm3 RBC 2.70 L (3.65-5.03) M/mm3 Hgb 7.1 L (11.8-15.2) gm/dl Hct 22.7 L (35.5-45.6) % MCH 27 L (28-32) pg RDW 19.6 H (13.2-15.2) % Plt Count 87 L (140-440) K/mm3 Seg Neuts % (Manual) 93.0 H (40.0-70.0) % Lymphocytes % (Manual) 3.0 L (13.4-35.0) % Seg Neutrophils # Man 19.1 H (1.8-7.7) K/mm3 Lymphocytes # (Manual) 0.6 L (1.2-5.4) K/mm3 Sodium (137-145) mmol/L Potassium (3.6-5.0) mmol/L Chloride (98-107) mmol/L Carbon Dioxide (22-30) mmol/L BUN (9-20) mg/dL Glucose (75-100) mg/dL POC Glucose 185 H (70-105) Calcium (8.4-10.2) mg/dL C-Reactive Protein 5.40 H (0.00-1.30) mg/dL Total Protein (6.3-8.2) g/dL Albumin (3.9-5) g/dL 10/22/18 10/22/18 10/23/18 Range/Units 19:31 23:36 00:11 WBC (4.5-11.0) K/mm3 RBC (3.65-5.03) M/mm3 Hgb (11.8-15.2) gm/dl Hct (35.5-45.6) % MCH (28-32) pg RDW (13.2-15.2) % Plt Count (140-440) K/mm3 Seg Neuts % (Manual) (40.0-70.0) % Lymphocytes % (Manual) (13.4-35.0) % Seg Neutrophils # Man (1.8-7.7) K/mm3 Lymphocytes # (Manual) (1.2-5.4) K/mm3 Sodium 147 H (137-145) mmol/L Potassium 3.4 L 3.4 L (3.6-5.0) mmol/L Chloride 116.5 H 114.0 H (98-107) mmol/L Carbon Dioxide 18 L 19 L (22-30) mmol/L BUN 67 H 66 H (9-20) mg/dL Glucose 182 H 176 H (75-100) mg/dL POC Glucose 174 H (70-105) Calcium 7.4 L 7.9 L (8.4-10.2) mg/dL C-Reactive Protein (0.00-1.30) mg/dL Total Protein 5.0 L 5.2 L (6.3-8.2) g/dL Albumin 1.7 L 1.5 L (3.9-5) g/dL 10/23/18 Range/Units 04:23 WBC (4.5-11.0) K/mm3 RBC (3.65-5.03) M/mm3 Hgb (11.8-15.2) gm/dl Hct (35.5-45.6) % MCH (28-32) pg RDW (13.2-15.2) % Plt Count (140-440) K/mm3 Seg Neuts % (Manual) (40.0-70.0) % Lymphocytes % (Manual) (13.4-35.0) % Seg Neutrophils # Man (1.8-7.7) K/mm3 Lymphocytes # (Manual) (1.2-5.4) K/mm3 Sodium (137-145) mmol/L Potassium 3.5 L (3.6-5.0) mmol/L Chloride 114.1 H (98-107) mmol/L Carbon Dioxide 19 L (22-30) mmol/L BUN 59 H (9-20) mg/dL Glucose 153 H (75-100) mg/dL POC Glucose (70-105) Calcium 7.4 L (8.4-10.2) mg/dL C-Reactive Protein (0.00-1.30) mg/dL Total Protein (6.3-8.2) g/dL Albumin (3.9-5) g/dL
--- NOTE | 2018-10-23 12:31 | XRay Report ---
AP CHEST: HISTORY: Pneumonia, aspiration Subtle infiltration in both lower lung zones, right greater than left, has decreased by 25% since 10/17/18. Trace right pleural effusion is identified. No pneumothorax. Heart size and pulmonary vascularity are within normal limits. IMPRESSION: Residual bibasilar opacities, right greater than left, but improved since the exam 6 days ago. Trace right pleural effusion.
--- NOTE | 2018-10-23 12:36 | XRay Report ---
AP ABDOMEN: HISTORY: Ileus. A PEG tube remains in good position. There appear to be a few mildly edematous and borderline dilated loops of small bowel in the midabdomen. There is normal gas in the remainder of the GI system. This could represent a focal ileus. No convincing obstructing pattern. If further evaluation is needed consider CT with oral contrast. IMPRESSION: Probable focal ileus.
--- NOTE | 2018-10-23 12:40 | Progress Note ---
Assessment and Plan Assessment and plan: 58 year old man with history of HIV, toxoplasmosis, severe the reservoir deficits, syphilitic encephalopathy, history of polysubstance abuse including cocaine. He status post trach and trach traversal, has a g-tube still intact. The patient was brought from [facility] for respiratory distress and altered mental status Sepsis secondary to pneumonia, septic shock - ID is following him - Patient is on Mepron and cefazolin Acute kidney injury due to vasomotor nephropathy and ATN - IV fluids, nephrology input appreciated Hypernatremia - Hypotonic IV fluid, free water via g-tube Acute hypoxic respiratory failure - Continue oxygen via venti mask and BiPAP as tolerated Hypothyroidism - thyroid function tests show low T4 and low free T4, increased synthroid dose HIV-AIDS mgt per ID DVT prophylaxis with heparin subcutaneously back to [place] when improved Critical care time 35 minutes History Interval history: fever resolved, less agitated, still sob, but having less respiratory distress no vomiting, no reported cp, no seizures Hospitalist Physical - Physical exam Narrative exam: General.: Appears ill and toxic , emaciated HEENT: Moist mucous membranes, extraocular muscles intact, no lymphadenopathy Neck: supple Cardiac: S1-S2 heard Lungs: crackles, diminished Abdomen: soft , nontender, nondistended, bowel sounds positive Extremities: no edema clubbing or cyanosis, contracted extremities Skin: no rash or lesions Neurologic: altered, moved extremiites, does not obey commands Psych: does not obey commands, lethargic - Constitutional Vitals: Temp Pulse Resp BP Pulse Ox 98.5 F 110 H 19 108/55 99 10/23/18 08:00 10/23/18 10:15 10/23/18 10:15 10/23/18 10:15 10/23/18 10:15 General appearance: Present: severe distress, cachectic Results - Labs CBC & Chem 7: 10/22/18 19:28 10/23/18 04:23 Labs: Laboratory Last Values WBC 20.5 K/mm3 (4.5-11.0) H 10/22/18 19:28 RBC 2.70 M/mm3 (3.65-5.03) L 10/22/18 19:28 Hgb 7.1 gm/dl (11.8-15.2) L 10/22/18 19:28 Hct 22.7 % (35.5-45.6) L 10/22/18 19:28 MCV 84 fl (84-94) 10/22/18 19:28 MCH 27 pg (28-32) L 10/22/18 19:28 MCHC 32 % (32-34) 10/22/18 19:28 RDW 19.6 % (13.2-15.2) H 10/22/18 19:28 Plt Count 87 K/mm3 (140-440) L 10/22/18 19:28 Lymph % (Auto) Senior Branch Manager 10/14/18 23:21 [place] % (Auto) Senior Branch Manager 10/14/18 23:21 Eos % (Auto) Senior Branch Manager 10/14/18 23:21 Baso % (Auto) Senior Branch Manager 10/14/18 23:21 Lymph # Senior Branch Manager 10/14/18 23:21 [place] # Senior Branch Manager 10/14/18 23:21 Eos # Senior Branch Manager 10/14/18 23:21 Baso # Senior Branch Manager 10/14/18 23:21 Add Manual Diff Complete 10/22/18 19:28 Total Counted 100 10/22/18 19:28 Seg Neutrophils % Senior Branch Manager 10/22/18 19:28 Seg Neuts % (Manual) 93.0 % (40.0-70.0) H 10/22/18 19:28 1.0 % 10/22/18 19:28 3.0 % (13.4-35.0) L 10/22/18 19:28 Reactive Lymphs % (Man) 0 % 10/22/18 19:28 3.0 % (0.0-7.3) 10/22/18 19:28 0 % (0.0-4.3) 10/22/18 19:28 0 % (0.0-1.8) 10/22/18 19:28 0 % 10/22/18 19:28 0 % 10/22/18 19:28 0 % 10/22/18 19:28 0 % 10/22/18 19:28 Nucleated RBC % Not Reportable 10/22/18 19:28 Seg Neutrophils # Senior Branch Manager 10/14/18 23:21 Seg Neutrophils # Man 19.1 K/mm3 (1.8-7.7) H 10/22/18 19:28 Band Neutrophils # 0.2 K/mm3 10/22/18 19:28 Abs Lymphs (Manual) 309 cells/uL (850-3900) L 10/15/18 15:13 0.6 K/mm3 (1.2-5.4) L 10/22/18 19:28 Abs React Lymphs (Man) 0.0 K/mm3 10/22/18 19:28 0.6 K/mm3 (0.0-0.8) 10/22/18 19:28 0.0 K/mm3 (0.0-0.4) 10/22/18 19:28 0.0 K/mm3 (0.0-0.1) 10/22/18 19:28 0.0 K/mm3 10/22/18 19:28 0.0 K/mm3 10/22/18 19:28 0.0 K/mm3 10/22/18 19:28 Blast Cells # 0.0 K/mm3 10/22/18 19:28 WBC Morphology Not Reportable 10/22/18 19:28 WBC Morphology TNR 10/22/18 19:28 Hypersegmented Neuts Not Reportable 10/22/18 19:28 Hyposegmented Neuts Not Reportable 10/22/18 19:28 Hypogranular Neuts Not Reportable 10/22/18 19:28 Not Reportable 10/22/18 19:28 Not Reportable 10/22/18 19:28 Not Reportable 10/22/18 19:28 Not Reportable 10/22/18 19:28 Not Reportable 10/22/18 19:28 Not Reportable 10/22/18 19:28 Consistent w auto 10/22/18 19:28 Not Reportable 10/22/18 19:28 Plt Clumps, EDTA Not Reportable 10/22/18 19:28 Not Reportable 10/22/18 19:28 Not Reportable 10/22/18 19:28 Not Reportable 10/22/18 19:28 Plt Morphology Comment Not Reportable 10/22/18 19:28 RBC Morphology Not Reportable 10/22/18 19:28 Dimorphic RBCs Not Reportable 10/22/18 19:28 Not Reportable 10/22/18 19:28 1+ 10/22/18 19:28 Not Reportable 10/22/18 19:28 1+ 10/22/18 19:28 Not Reportable 10/22/18 19:28 Not Reportable 10/22/18 19:28 Not Reportable 10/22/18 19:28 Not Reportable 10/22/18 19:28 Not Reportable 10/22/18 19:28 Few 10/22/18 19:28 Not Reportable 10/22/18 19:28 Not Reportable 10/22/18 19:28 Not Reportable 10/22/18 19:28 Not Reportable 10/22/18 19:28 Not Reportable 10/22/18 19:28 Not Reportable 10/22/18 19:28 Not Reportable 10/22/18 19:28 Not Reportable 10/22/18 19:28 Not Reportable 10/22/18 19:28 Acanthocytes (Spur) Not Reportable 10/22/18 19:28 Rouleaux Not Reportable 10/22/18 19:28 Not Reportable 10/22/18 19:28 Not Reportable 10/22/18 19:28 Not Reportable 10/22/18 19:28 Not Reportable 10/22/18 19:28 Hem Pathologist Commnt No 10/22/18 19:28 POC ABG pH 7.347 (7.35-7.45) L 10/18/18 11:56 POC ABG pCO2 33.1 (35-45) L 10/15/18 13:03 POC ABG pO2 72 (80-105) L 10/18/18 11:56 POC ABG HCO3 14.5 (22-26 mml/L) 10/18/18 11:56 POC ABG Total CO2 15 (23-27mmol/L) 10/18/18 11:56 POC ABG O2 Sat 94 10/18/18 11:56 POC ABG Base Excess -11 ((-2) - (+3)mmol/L) 10/18/18 11:56 50 % 10/18/18 11:56 Sodium 143 mmol/L (137-145) 10/23/18 04:23 Potassium 3.5 mmol/L (3.6-5.0) L 10/23/18 04:23 Chloride 114.1 mmol/L (98-107) H 10/23/18 04:23 Carbon Dioxide 19 mmol/L (22-30) L 10/23/18 04:23 13 mmol/L 10/23/18 04:23 BUN 59 mg/dL (9-20) H 10/23/18 04:23 1.2 mg/dL (0.8-1.5) 10/23/18 04:23 Estimated GFR > 60 ml/min 10/23/18 04:23 49 % 10/23/18 04:23 Glucose 153 mg/dL (75-100) H 10/23/18 04:23 POC Glucose 143 (70-105) H 10/23/18 12:03 Lactic Acid 1.80 mmol/L (0.7-2.0) 10/22/18 19:28 Calcium 7.4 mg/dL (8.4-10.2) L 10/23/18 04:23 Phosphorus 3.40 mg/dL (2.5-4.5) 10/18/18 16:41 Magnesium 2.10 mg/dL (1.7-2.3) 10/19/18 05:02 0.20 mg/dL (0.1-1.2) 10/23/18 00:11 AST 23 units/L (5-40) 10/23/18 00:11 ALT 9 units/L (7-56) 10/23/18 00:11 62 units/L (35-129) 10/23/18 00:11 0.034 ng/mL (0.00-0.029) H 10/14/18 23:21 5.40 mg/dL (0.00-1.30) H 10/22/18 19:28 5.2 g/dL (6.3-8.2) L 10/23/18 00:11 1.5 g/dL (3.9-5) L 10/23/18 00:11 0.4 % 10/23/18 00:11 Triglycerides 63 mg/dL (2-149) 10/14/18 23:21 Cholesterol 59 mg/dL (50-199) 10/14/18 23:21 13 mg/dL (50-130) L 10/14/18 23:21 28 mg/dL (40-59) L 10/14/18 23:21 2.10 % 10/14/18 23:21 TSH 2.560 mlU/mL (0.270-4.200) 10/16/18 12:40 Free T4 0.38 ng/dL (0.76-1.46) L 10/16/18 12:40 1.8 ug/dL (4.0-12.0) L 10/16/18 12:40 [place] (Yellow) 10/14/18 01:27 Cloudy (Clear) 10/14/18 01:27 5.0 (5.0-7.0) 10/14/18 01:27 Ur Specific [place] 1.020 (1.003-1.030) 10/14/18 01:27 100 mg/dl mg/dL (Negative) 10/14/18 01:27 Neg mg/dL (Negative) 10/14/18 01:27 Neg mg/dL (Negative) 10/14/18 01:27 Lg (Negative) 10/14/18 01:27 Neg (Negative) 10/14/18 01:27 Neg (Negative) 10/14/18 01:27 2.0 mg/dL (<2.0) 10/14/18 01:27 Ur Leukocyte Esterase Neg (Negative) 10/14/18 01:27 6.0 /HPF (0.0-6.0) 10/14/18 01:27 95.0 /HPF (0.0-6.0) 10/14/18 01:27 U Epithel Cells (Auto) < 1.0 /HPF (0-13.0) 10/14/18 01:27 Amorphous Crystals 3+ 10/14/18 01:27 Hyaline Casts 4 /LPF 10/14/18 01:27 Granular Casts 2 /LPF 10/14/18 01:27 1+ /HPF 10/14/18 01:27 36.3 mg/dL (0.1-20.0) H 10/17/18 19:45 Protein/Creatinin Ratio 1.35 10/17/18 19:45 46 mmol/L 10/17/18 19:45 39.3 mmolL (110-250) L 10/17/18 19:45 49 mg/dL (5-11.8) H 10/17/18 19:45 Random Vancomycin 7.6 ug/mL (0-40.0) 10/17/18 05:20 Proteinase 3 (PR3) Ab <1.0 AI (<1.0) 10/17/18 19:03 Myeloperoxidase Ab <1.0 AI (<1.0) 10/17/18 19:03 76 mg/dL (82-185) L 10/17/18 19:03 21 mg/dL (15-53) 10/17/18 19:03 Lymph Enumerat CD4/CD8 0.84 (0.86-5.00) L 10/15/18 15:13 % CD3 Cells 60 % (57-85) 10/15/18 15:13 187 cells/uL (840-3060) L 10/15/18 15:13 % CD4 Cells 28 % (30-61) L 10/15/18 15:13 88 cells/uL (490-1740) L 10/15/18 15:13 % CD8 Cells 34 % (12-42) 10/15/18 15:13 104 cells/uL (180-1170) L 10/15/18 15:13 % CD19 Cells 27 % (6-29) 10/15/18 15:13 82 cells/uL (110-660) L 10/15/18 15:13 HIV-1 RNA PCR copies/ml <20 Copies/mL H 10/15/18 15:13 <1.30 Log cps/mL H 10/15/18 15:13 Active Medications - Current Medications Current Medications: Generic Name Dose Route Start Last Admin Trade Name Freq PRN Reason Stop Dose Admin Acetaminophen 650 mg 10/15/18 03:28 10/21/18 18:41 Tylenol PO 650 mg Q4H PRN Administration Pain MILD(1-3)/Fever >100.5/DELGADO Albuterol 2.5 mg 10/16/18 10:30 Proventil IH Q4HRT PRN Shortness Of Breath Albuterol/Ipratropium 1 ampul 10/15/18 14:00 10/23/18 09:05 Duoneb *Not For Prn Use* IH 1 ampul Q6HRT BLOSSOM Administration Lipase/Protease/Amylase 1 each 10/16/18 16:25 Pancrejoan Lema 10,500 Unit FEEDTUBE PRN PRN For Clogged Feeding Tube Aspirin 325 mg 10/17/18 10:00 10/23/18 09:29 Aspirin FEEDTUBE 325 mg DAILY BLOSSOM Administration Atorvastatin Calcium 20 mg 10/16/18 22:00 10/22/18 21:26 Lipitor FEEDTUBE 20 mg HS BLOSSOM Administration Atovaquone 750 mg 10/19/18 16:00 10/22/18 21:27 Mepron PO 750 mg BID BLOSSOM Administration Bisacodyl 10 mg 10/16/18 10:30 Dulcolax [place] DAILY PRN Constipation Budesonide 0.5 mg 10/15/18 20:00 10/23/18 09:05 Pulmicort IH 0.5 mg Q12HRT BLOSSOM Administration Cholecalciferol 2,000 unit 10/17/18 10:00 10/23/18 09:28 Vitamin D3 FEEDTUBE 2,000 unit QAM BLOSSOM Administration Darunavir 800 mg 10/19/18 13:00 10/22/18 09:06 Prezista PO 800 mg QDAY BLOSSOM Administration Dextrose 50 ml 10/21/18 17:33 D50w (25gm) Syringe IV PRN PRN Hypoglycemia Docusate Sodium 100 mg 10/16/18 10:30 Colace FEEDTUBE Q12H PRN Constipation/STOOL SOFTENER Famotidine 20 mg 10/15/18 10:00 10/23/18 09:28 Pepcid IV 20 mg QAM BLOSSOM Administration Fluoxetine HCl 40 mg 10/17/18 10:00 10/22/18 09:05 Prozac PO 40 mg QDAY BLOSSOM Administration Dextrose 1,000 mls @ 125 mls/hr 10/22/18 06:00 10/23/18 09:27 D5w IV 125 mls/hr DIRECT BLOSSOM Administration Cefazolin Sodium 2 gm/ Sodium 100 mls @ 100 mls/hr 10/23/18 14:00 Chloride IV Q8HR [facility] Insulin Human Regular 0 units 10/21/18 18:00 10/23/18 05:43 Humulin R SUB-Q 2 units Q6HR BLOSSOM Administration Protocol Lamivudine 150 mg 10/23/18 10:00 Epivir PO BID BLOSSOM Levothyroxine Sodium 75 mcg 10/18/18 06:00 10/23/18 05:24 Synthroid PO 75 mcg DAILY@0600 BLOSSOM Administration Methylprednisolone Sodium Succinate 40 mg 10/16/18 14:00 10/23/18 05:24 Solu-Medrol IV 10/23/18 23:59 40 mg Q8HR BLOSSOM Administration Metoclopramide HCl 10 mg 10/21/18 17:33 10/22/18 06:18 Reglan IV 10 mg Q8H PRN Administration Nausea And Vomiting Morphine Sulfate 2 mg 10/15/18 03:28 Morphine IV Q4H PRN Pain, Moderate (4-6) Ondansetron HCl 4 mg 10/15/18 03:28 Zofran IV Q8H PRN Nausea And Vomiting Polyethylene Glycol 17 gm 10/16/18 10:30 Miralax 3350 FEEDTUBE DAILY PRN Constipation Prednisone 20 mg 10/24/18 10:00 Deltasone PO 10/24/18 10:01 QDAY BLOSSOM Prednisone 10 mg 10/25/18 10:00 Deltasone PO 10/25/18 10:01 QDAY BLOSSOM Prednisone 5 mg 10/26/18 10:00 Deltasone PO QDAY BLOSSOM Quetiapine Fumarate 100 mg 10/16/18 11:00 10/23/18 03:42 Seroquel FEEDTUBE Not Given Q8H BLOSSOM Ritonavir 100 mg 10/19/18 12:00 10/22/18 09:06 Norvir PO 100 mg DAILY BLOSSOM Administration Scopolamine 1 each 10/16/18 11:00 10/22/18 11:34 Transderm-Scop TD 1 each Q72H BLOSSOM Administration Senna 17.2 mg 10/16/18 22:00 10/22/18 21:28 Senokot FEEDTUBE Not Given HS BLOSSOM Simple Syrup 15 ml 10/16/18 16:25 Simple Syrup FEEDTUBE PRN PRN Hypoglycemia Simple Syrup 30 ml 10/16/18 16:25 Simple Syrup FEEDTUBE PRN PRN Hypoglycemia Sodium Bicarbonate 325 mg 10/16/18 16:25 Sodium Bicarbonate FEEDTUBE PRN PRN For Clogged Feeding Tube Sodium Chloride 10 ml 10/15/18 10:00 10/23/18 09:30 Sodium Chloride Flush Syringe 10 Ml IV 10 ml BID BLOSSOM Administration Sodium Chloride 10 ml 10/15/18 03:28 Sodium Chloride Flush Syringe 10 Ml IV PRN PRN LINE FLUSH Tenofovir Disoproxil Fumarate 300 mg 10/23/18 10:00 Viread PO Q24HR BLOSSOM Nutrition/Malnutrition Assess - Dietary Evaluation Nutrition/Malnutrition Findings: Nutrition Notes Start: 10/16/18 16:06 Freq: Status: Active Protocol: Document 10/21/18 10:25 RD (Rec: 10/21/18 10:35 RD [id number]) Co-Sign 10/21/18 10:25 LP Nutrition Notes Initial or Follow up Brief Note Current Diagnosis COPD,Sepsis,Respiratory Failure,Stroke Other Pertinent Diagnosis HIV/AIDS, Pneu, PEG Current Diet Vital AF 1.2 @ 50 mL/hr Labs/Tests B BUN:90 Creat: 1.6 Pertinent Medications Solu-Medrol Height 5 ft 3 in Weight 57.6 kg [place] Body Weight (kg) 56.36 BMI 22.4 Subjective/Other Information RD screen to manage TF. Per RN note, gastric residuals of 650 mL on 10/20/18. RN decided to keep TF the same and recommend to MD adding Reglan to the pt's care. Nutrition Intervention Follow-Up By: 10/23/18 Additional Comments f/u: residuals
[2018-10-23] MEDS: ceFAZolin 2 GM in NACL 0.9% 100 ML IV SCH ×3 (14:00→22:16)
[2018-10-23] MEDS ORDERED: SIMPLE SYRUP FEEDTUBE PRN ×2 (14:42)
[2018-10-23] MEDS ORDERED: PANCREAZE DR 10,500 UNIT FEEDTUBE PRN (14:42)
[2018-10-23] MEDS ORDERED: SODIUM BICARBONATE FEEDTUBE PRN (14:42)
[2018-10-23] MEDS ORDERED: LEVOPHED DRIP 4 MG/NS 250 ML 4 MG/250 ML BAG IV SCH (22:00)
[2018-10-23] MEDS: SENOKOT FEEDTUBE SCH (22:15)
[2018-10-24] MEDS: HumuLIN R SUB-Q SCH ×3 (00:26→11:43)
[2018-10-24] MEDS: DUONEB *Not for PRN Use IH SCH ×3 (02:06→15:10)
[2018-10-24] MEDS ORDERED: ATIVAN IV PRN (04:13)
--- NOTE | 2018-10-24 05:13 | Cat Scan Report ---
PROCEDURE: CT HEAD/BRAIN WO CON TECHNIQUE: Routine axial imaging was obtained of the brain without IV contrast. HISTORY: new onset seizure COMPARISONS: 08/30/2018 FINDINGS: There are remote areas of infarction in the right frontal lobe right temporal lobe and left thalamus. There is an additional remote stroke in the left cerebellar hemisphere. There is no evidence of acut e stroke or hemorrhage. There is mild to moderate atrophy. There is diminished attenuation of the per iventricular white matter. The ventricular system is appropriate in size. The visualized sinuses reve al secretions in the right sphenoid sinus. There is minimal mucosal thickening in the maxillary sinus es. The calvarium appears intact. IMPRESSION: Icae-[id number] generalized atrophy with chronic ischemic white matter disease changes. No acute str sanchez or hemorrhage. Remote infarcts in the right frontal and right temporal lobes and left cerebellar hemisphere. Remote lacunar infarct in the left thalamus also. Sinusitis as described.. This document is electronically signed by Slim Fernandez MD., Oct 24 2018 05:11:50 AM ET
[2018-10-24] MEDS: ceFAZolin 2 GM in NACL 0.9% 100 ML IV SCH ×2 (05:59→14:27)
[2018-10-24] MEDS: SYNTHROID PO SCH (06:00)
[2018-10-24 07:58] LABS: BUN/Creatinine Ratio 44; Blood Urea Nitrogen 53 mg/dL (9-20); Calcium 7.8 mg/dL (8.4-10.2); Hemolysis Index 13
--- NOTE | 2018-10-24 08:49 | Progress Note ---
Assessment and Plan - Patient Problems (1) Acute kidney failure with tubular necrosis Current Visit: Yes Status: Acute Plan to address problem: Kidney function is improving. Continue current management (2) Hypernatremia Current Visit: Yes Status: Acute Plan to address problem: Significant free water deficit. Sodium improved with free water replacement. Continue free water but decrease intravenous fluids and follow up Sodium (3) Acute and chronic respiratory failure with hypoxia Current Visit: Yes Status: Acute Plan to address problem: On oxygen via nonrebreather mask. Prognosis is very poor. Management by pulmonary (4) HCAP (healthcare-associated pneumonia) Current Visit: Yes Status: Acute Plan to address problem: Continue antibiotics appropriately dosed to the degree of kidney function. Follow cultures (5) HIV (human immunodeficiency virus infection) Current Visit: Yes Status: Chronic Qualifiers: Plan to address problem: Continue antiretrovirals and fu with infectious disease (6) Altered mental status Current Visit: No Status: Acute Qualifiers: Altered mental status type: somnolence Qualified Code(s): R40.0 - Somnol ence Plan to address problem: Mental status a bit better. Baseline not known to me (7) Hypokalemia Current Visit: Yes Status: Acute Plan to address problem: Supplement potassium and follow-up level Subjective Date of service: 10/24/18 Principal diagnosis: Ac Hypoxemic Resp Failure; Pneumonia (HAP); Acute en cephalopathy ; HIV/AIDS Interval history: Patient seen lying in bed. Nonverbal. Opens eyes to speech. On oxygen via nonrebreather mask Objective - Exam Narrative Exam: Frail, cachectic, middle-aged -[place] male in no acute distress HEENT: NCAT, pink oral mucous membrane Neck: Supple, no venous distention CVS: S1S2 RRR with no murmur, rub or gallop Chest: Coarse breath sounds with Low pitched rhonchi with scattered rales worse in right lower zone Abdomen: Protuberant, soft, nontender, no organomegaly, bowel sounds are present Extremities: No edema, muscle wasting Neuro: Eyes open, not following commands, nonverbal, - Vital Signs Vital signs: Vital Signs - 12hr 10/23/18 10/23/18 10/23/18 21:00 21:08 21:15 Temperature Pulse Rate 102 H 96 H Pulse Rate [ 102 H Bilateral] Respiratory 15 15 Rate Respiratory 17 Rate [Bilateral ] Blood Pressure 92/43 86/43 O2 Sat by Pulse 100 100 Oximetry 10/23/18 10/23/18 10/23/18 21:30 21:45 22:00 Temperature Pulse Rate 99 H 99 H 98 H Pulse Rate [ Bilateral] Respiratory 16 14 14 Rate Respiratory Rate [Bilateral ] Blood Pressure 100/49 100/49 102/50 O2 Sat by Pulse 100 99 99 Oximetry 10/23/18 10/23/18 10/23/18 22:15 22:30 22:45 Temperature Pulse Rate 99 H 99 H 98 H Pulse Rate [ Bilateral] Respiratory 17 13 12 Rate Respiratory Rate [Bilateral ] Blood Pressure 100/49 108/52 108/52 O2 Sat by Pulse 98 100 100 Oximetry 10/23/18 10/23/18 10/23/18 23:00 23:15 23:19 Temperature 98.4 F Pulse Rate 101 H 102 H Pulse Rate [ Bilateral] Respiratory 17 15 Rate Respiratory Rate [Bilateral ] Blood Pressure 111/55 111/55 O2 Sat by Pulse 99 100 Oximetry 10/23/18 10/23/18 10/24/18 23:30 23:45 00:00 Temperature Pulse Rate 98 H 98 H 97 H Pulse Rate [ Bilateral] Respiratory 12 15 15 Rate Respiratory Rate [Bilateral ] Blood Pressure 108/54 108/54 108/56 O2 Sat by Pulse 99 99 Oximetry 10/24/18 10/24/18 10/24/18 00:15 00:30 00:45 Temperature Pulse Rate 98 H 96 H 96 H Pulse Rate [ Bilateral] Respiratory 13 13 12 Rate Respiratory Rate [Bilateral ] Blood Pressure 108/56 109/54 108/56 O2 Sat by Pulse 98 98 98 Oximetry 10/24/18 10/24/18 10/24/18 01:00 01:15 01:30 Temperature Pulse Rate 96 H 95 H 95 H Pulse Rate [ Bilateral] Respiratory 13 14 13 Rate Respiratory Rate [Bilateral ] Blood Pressure 109/54 109/54 101/57 O2 Sat by Pulse 97 97 Oximetry 10/24/18 10/24/18 10/24/18 01:45 02:00 02:06 Temperature Pulse Rate 94 H 91 H Pulse Rate [ 93 H Bilateral] Respiratory 14 12 Rate Respiratory 15 Rate [Bilateral ] Blood Pressure 101/57 109/56 O2 Sat by Pulse 97 98 Oximetry 10/24/18 10/24/18 10/24/18 02:15 02:30 02:35 Temperature Pulse Rate 92 H 92 H Pulse Rate [ 95 H Bilateral] Respiratory 14 13 Rate Respiratory 19 Rate [Bilateral ] Blood Pressure 109/56 107/56 O2 Sat by Pulse 100 100 Oximetry 10/24/18 10/24/18 10/24/18 02:45 03:00 03:15 Temperature Pulse Rate 104 H 103 H 98 H Pulse Rate [ Bilateral] Respiratory 25 H 14 20 Rate Respiratory Rate [Bilateral ] Blood Pressure 107/56 99/46 99/46 O2 Sat by Pulse 87 100 95 Oximetry 10/24/18 10/24/18 10/24/18 03:30 03:45 04:01 Temperature 98.9 F Pulse Rate 104 H 106 H 109 H Pulse Rate [ Bilateral] Respiratory 21 23 19 Rate Respiratory Rate [Bilateral ] Blood Pressure 124/72 124/72 126/46 O2 Sat by Pulse 90 90 Oximetry 10/24/18 10/24/18 10/24/18 04:15 04:31 05:05 Temperature Pulse Rate 107 H 116 H 108 H Pulse Rate [ Bilateral] Respiratory 18 16 26 H Rate Respiratory Rate [Bilateral ] Blood Pressure 126/46 128/62 128/62 O2 Sat by Pulse 90 92 89 Oximetry 10/24/18 10/24/18 10/24/18 05:15 05:30 05:45 Temperature Pulse Rate 105 H 104 H Pulse Rate [ Bilateral] Respiratory 16 14 Rate Respiratory Rate [Bilateral ] Blood Pressure 128/62 128/53 128/62 O2 Sat by Pulse 91 100 100 Oximetry 10/24/18 10/24/18 10/24/18 06:00 06:15 06:30 Temperature Pulse Rate 101 H 101 H 100 H Pulse Rate [ Bilateral] Respiratory 14 15 12 Rate Respiratory Rate [Bilateral ] Blood Pressure 106/49 106/49 98/50 O2 Sat by Pulse 100 100 100 Oximetry 10/24/18 10/24/18 10/24/18 06:45 07:00 07:15 Temperature Pulse Rate 99 H 97 H 96 H Pulse Rate [ Bilateral] Respiratory 14 15 14 Rate Respiratory Rate [Bilateral ] Blood Pressure 98/50 100/49 100/49 O2 Sat by Pulse 100 100 100 Oximetry 10/24/18 10/24/18 10/24/18 07:30 07:45 07:55 Temperature 94.2 F L Pulse Rate 95 H 97 H Pulse Rate [ Bilateral] Respiratory 14 16 Rate Respiratory Rate [Bilateral ] Blood Pressure 97/51 97/51 O2 Sat by Pulse 100 100 Oximetry - Lab 10/24/18 09:58 10/24/18 06:42 Most recent lab results Calcium 7.8 mg/dL (8.4-10.2) L 10/24/18 06:42 Phosphorus 3.40 mg/dL (2.5-4.5) 10/18/18 16:41 Magnesium 2.10 mg/dL (1.7-2.3) 10/19/18 05:02 36.3 mg/dL (0.1-20.0) H 10/17/18 19:45 46 mmol/L 10/17/18 19:45 49 mg/dL (5-11.8) H 10/17/18 19:45 Medications & Allergies - Medications Allergies/Adverse Reactions: Allergies No Known Allergies Allergy (Verified 08/27/18 10:38) Home Medications: Home Medications Medication Instructions Recorded Confirmed Last Taken Type Acetylcysteine 20% Oral [Mucomyst 3 ml INTRATRACH Q6H 03/28/18 10/24/18 Unknown History Oral] Aspirin [Aspirin TAB] 325 mg FEEDTUBE DAILY 03/28/18 10/24/18 Unknown History Atorvastatin Calcium [Lipitor] 20 mg FEEDTUBE HS 03/28/18 10/24/18 Unknown History Bisacodyl [Bisac-Evac] 10 mg RC DAILY PRN 03/28/18 10/24/18 Unknown History Cholecalciferol (Vitamin D3) 2,000 unit FEEDTUBE QA 03/28/18 10/24/18 Unknown History [Vitamin D3] Docusate Sodium [Move It Along] 100 mg FEEDTUBE Q12H PRN 03/28/18 10/24/18 Unknown History Doxazosin Mesylate [Cardura] 1 mg FEEDTUBE HS 03/28/18 10/24/18 Unknown History Ergocalciferol [Vitamin D2] 1 cap FEEDTUBE QWEEK 03/28/18 10/24/18 Unknown History Gabapentin [Neurontin] 300 mg FEEDTUBE HS 03/28/18 10/24/18 Unknown History Haloperidol Decanoate [Haldol 50 mg IM Q4W 03/28/18 10/24/18 Unknown History Decanoate] Haloperidol Lactate [Haldol] 0.4 ml IM Q8H PRN 03/28/18 10/24/18 Unknown History Ipratropium/Albuterol Sulfate 1 ampul IH Q4HR 03/28/18 10/24/18 Unknown History [DUONEB *Not for PRN Use*] Polyethylene Glycol 3350 17 gm FEEDTUBE DAILY PRN 03/28/18 10/24/18 Unknown History [Smoothlax] Quetiapine Fumarate [Seroquel] 100 mg FEEDTUBE Q8H 03/28/18 10/24/18 Unknown History Scopolamine [Transderm-Scop] 1 each TD Q72H 03/28/18 10/24/18 Unknown History Sennosides [Senna Laxative] 17.2 mg FEEDTUBE HS 03/28/18 10/24/18 Unknown History lamiVUDine [Lamivudine] 30 ml FEEDTUBE QAM 03/28/18 10/24/18 Unknown History traMADol [Ultram 50 MG tab] 50 mg FEEDTUBE TID #10 tablet 03/31/18 10/24/18 Unknown Rx Bacitracin Zinc Oint [Antibiotic 1 applicatio TP BID #1 tube 08/22/18 10/24/18 Unknown Rx Oint] ALBUTEROL NEB's [Proventil 0.083% 2.5 mg IH Q4HRT PRN nebu 09/01/18 10/24/18 Unknown Rx NEBS] Amoxicillin/K Clav Tab [Augmentin 875 each PO Q12HR #14 tablet 09/01/18 10/24/18 Unknown Rx 875MG TAB] Darunavir [Prezista] 800 mg PO QDAY tablet 09/01/18 10/24/18 Unknown Rx FLUoxetine [Prozac] 40 mg PO QDAY oral.liqd 09/01/18 10/24/18 Unknown Rx Famotidine [Pepcid] 20 mg PO BID tablet 09/01/18 10/24/18 Unknown Rx Levothyroxine [Synthroid] 50 mcg PO DAILY@0600 tablet 09/01/18 10/24/18 Unknown Rx Metoprolol [Lopressor TAB] 12.5 mg PO BID tablet 09/01/18 10/24/18 Unknown Rx Ritonavir [Norvir] 100 mg PO DAILY tab 09/01/18 10/24/18 Unknown Rx Tenofovir [Viread] 300 mg PO QDAY tablet 09/01/18 10/24/18 Unknown Rx Active Medications: Generic Name Dose Route Start Last Admin Trade Name Freq PRN Reason Stop Dose Admin Acetaminophen 650 mg 10/15/18 03:28 10/21/18 18:41 Tylenol PO 650 mg Q4H PRN Administration Pain MILD(1-3)/Fever >100.5/DELGADO Albuterol 2.5 mg 10/16/18 10:30 Proventil IH Q4HRT PRN Shortness Of Breath Albuterol/Ipratropium 1 ampul 10/15/18 14:00 10/24/18 02:06 Duoneb *Not For Prn Use* IH 1 ampul Q6HRT BLOSSOM Administration Lipase/Protease/Amylase 1 each 10/16/18 16:25 Pancrejoan Lema 10,500 Unit FEEDTUBE PRN PRN For Clogged Feeding Tube Aspirin 325 mg 10/17/18 10:00 10/23/18 09:29 Aspirin FEEDTUBE 325 mg DAILY BLOSSOM Administration Atorvastatin Calcium 20 mg 10/16/18 22:00 10/23/18 22:14 Lipitor FEEDTUBE 20 mg HS BLOSSOM Administration Atovaquone 750 mg 10/19/18 16:00 10/23/18 22:13 Mepron PO 750 mg BID BLOSSOM Administration Bisacodyl 10 mg 10/16/18 10:30 Dulcolax VT DAILY PRN Constipation Budesonide 0.5 mg 10/15/18 20:00 10/23/18 20:28 Pulmicort IH 0.5 mg Q12HRT BLOSSOM Administration Cholecalciferol 2,000 unit 10/17/18 10:00 10/23/18 09:28 Vitamin D3 FEEDTUBE 2,000 unit QAM BLOSSOM Administration Darunavir 800 mg 10/19/18 13:00 10/23/18 10:00 Prezista PO 800 mg QDAY BLOSSOM Administration Dextrose 50 ml 10/21/18 17:33 D50w (25gm) Syringe IV PRN PRN Hypoglycemia Docusate Sodium 100 mg 10/16/18 10:30 Colace FEEDTUBE Q12H PRN Constipation/STOOL SOFTENER Famotidine 20 mg 10/15/18 10:00 10/23/18 09:28 Pepcid IV 20 mg QAM BLOSSOM Administration Fluoxetine HCl 40 mg 10/17/18 10:00 10/23/18 10:00 Prozac PO 40 mg QDAY BLOSSOM Administration Dextrose 1,000 mls @ 125 mls/hr 10/22/18 06:00 10/23/18 18:22 D5w IV 125 mls/hr DIRECT BLOSSOM Administration Cefazolin Sodium 2 gm/ Sodium 100 mls @ 100 mls/hr 10/23/18 14:00 10/24/18 06:59 Chloride IV Infused Q8HR BLOSSOM Infusion Norepinephrine 4 mg in 250 mls @ 7.5 mls/hr 10/23/18 22:00 10/24/18 07:25 Levophed Drip 4 Mg/Ns 250 Ml IV 0 mcg/min TITR BLOSSOM 0 mls/hr Titration Protocol 2 MCG/MIN Insulin Human Regular 0 units 10/21/18 18:00 10/24/18 06:08 Humulin R SUB-Q 3 units Q6HR BLOSSOM Administration Protocol Lamivudine 150 mg 10/23/18 10:00 10/23/18 22:10 Epivir PO 150 mg BID BLOSSOM Administration Levothyroxine Sodium 75 mcg 10/18/18 06:00 10/24/18 06:00 Synthroid PO 75 mcg DAILY@0600 BLOSSOM Administration Lorazepam 2 mg 10/24/18 04:13 10/24/18 04:40 Ativan IV 2 mg Q1H PRN Administration Seizures Metoclopramide HCl 10 mg 10/21/18 17:33 10/22/18 06:18 Reglan IV 10 mg Q8H PRN Administration Nausea And Vomiting Morphine Sulfate 2 mg 10/15/18 03:28 Morphine IV Q4H PRN Pain, Moderate (4-6) Ondansetron HCl 4 mg 10/15/18 03:28 Zofran IV Q8H PRN Nausea And Vomiting Polyethylene Glycol 17 gm 10/16/18 10:30 Miralax 3350 FEEDTUBE DAILY PRN Constipation Prednisone 20 mg 10/24/18 10:00 Deltasone PO 10/24/18 10:01 QDAY BLOSSOM Prednisone 10 mg 10/25/18 10:00 Deltasone PO 10/25/18 10:01 QDAY BLOSSOM Prednisone 5 mg 10/26/18 10:00 Deltasone PO QDAY BLOSSOM Quetiapine Fumarate 100 mg 10/16/18 11:00 10/23/18 18:27 Seroquel FEEDTUBE 100 mg Q8H BLOSSOM Administration Ritonavir 100 mg 10/19/18 12:00 10/23/18 10:00 Norvir PO 100 mg DAILY BLOSSOM Administration Scopolamine 1 each 10/16/18 11:00 10/22/18 11:34 Transderm-Scop TD 1 each Q72H BLOSSOM Administration Senna 17.2 mg 10/16/18 22:00 10/23/18 22:15 Senokot FEEDTUBE 17.2 mg HS BLOSSOM Administration Simple Syrup 15 ml 10/16/18 16:25 Simple Syrup FEEDTUBE PRN PRN Hypoglycemia Simple Syrup 30 ml 10/16/18 16:25 Simple Syrup FEEDTUBE PRN PRN Hypoglycemia Sodium Bicarbonate 325 mg 10/16/18 16:25 Sodium Bicarbonate FEEDTUBE PRN PRN For Clogged Feeding Tube Sodium Chloride 10 ml 10/15/18 10:00 10/23/18 22:17 Sodium Chloride Flush Syringe 10 Ml IV 10 ml BID BLOSSOM Administration Sodium Chloride 10 ml 10/15/18 03:28 Sodium Chloride Flush Syringe 10 Ml IV PRN PRN LINE FLUSH Tenofovir Disoproxil Fumarate 300 mg 10/23/18 10:00 10/23/18 10:00 Viread PO 300 mg Q24HR BLOSSOM Administration
[2018-10-24] MEDS: PULMICORT IH SCH (08:52)
--- NOTE | 2018-10-24 09:00 | Progress Note ---
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 Target blood glucose is 140-180 mg/dL -VTE prophylaxis -Continue Anti-infectives per ID , de-escalate based on culture -Vasopressor support for MAP<65 - Monitor renal indices closely - Avoid nephrotoxic agents, adjust all medications for CrCL - Strict intake and output monitoring - Supportive transfusions as indicated - Maintenance of sleep -wake cycle - Mobility as tolerated by hemodynamics, for pressure ulcer prevention - Influenza and pneumonia vaccination per protocol -Supportive care - Goals of care need to be addressed with family or POA. - 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, alf CC 35 minutes Subjective Date of service: 10/24/18 Principal diagnosis: Ac Hypoxemic Resp Failure; Pneumonia (HAP); Acute encephalopathy ; HIV/AIDS Interval history: Patient is seen today for: Acute Hypoxemic Respiratory Failure; Right midlung pn eumonia (HAP); H/O Tracheostomy; COPD; Acute encephalopathy ; HIV/AIDS (viral load and CD4 unknown); H/o toxoplasmosis; H/o syphilitic encephalopathy Seen and examined at bedside; 24hour events reviewed; nursing and respiratory care staff consulted; no adverse overnight events reported to me; remains on supplemental oxygen; mental status changes persistent, no fevers, no vomiting, residual of 150ml overnight, tube feeding was held. Episodes of desaturation overnight placed on BIPAP, now on Venturi mask, required vasopressor overnight now off Objective Vital Signs - 12hr 10/23/18 10/23/18 10/23/18 21:00 21:08 21:15 Temperature Pulse Rate 102 H 96 H Pulse Rate [ 102 H Bilateral] Respiratory 15 15 Rate Respiratory 17 Rate [Bilateral ] Blood Pressure 92/43 86/43 O2 Sat by Pulse 100 100 Oximetry 10/23/18 10/23/18 10/23/18 21:30 21:45 22:00 Temperature Pulse Rate 99 H 99 H 98 H Pulse Rate [ Bilateral] Respiratory 16 14 14 Rate Respiratory Rate [Bilateral ] Blood Pressure 100/49 100/49 102/50 O2 Sat by Pulse 100 99 99 Oximetry 10/23/18 10/23/18 10/23/18 22:15 22:30 22:45 Temperature Pulse Rate 99 H 99 H 98 H Pulse Rate [ Bilateral] Respiratory 17 13 12 Rate Respiratory Rate [Bilateral ] Blood Pressure 100/49 108/52 108/52 O2 Sat by Pulse 98 100 100 Oximetry 10/23/18 10/23/18 10/23/18 23:00 23:15 23:19 Temperature 98.4 F Pulse Rate 101 H 102 H Pulse Rate [ Bilateral] Respiratory 17 15 Rate Respiratory Rate [Bilateral ] Blood Pressure 111/55 111/55 O2 Sat by Pulse 99 100 Oximetry 10/23/18 10/23/18 10/24/18 23:30 23:45 00:00 Temperature Pulse Rate 98 H 98 H 97 H Pulse Rate [ Bilateral] Respiratory 12 15 15 Rate Respiratory Rate [Bilateral ] Blood Pressure 108/54 108/54 108/56 O2 Sat by Pulse 99 99 Oximetry 10/24/18 10/24/18 10/24/18 00:15 00:30 00:45 Temperature Pulse Rate 98 H 96 H 96 H Pulse Rate [ Bilateral] Respiratory 13 13 12 Rate Respiratory Rate [Bilateral ] Blood Pressure 108/56 109/54 108/56 O2 Sat by Pulse 98 98 98 Oximetry 10/24/18 10/24/18 10/24/18 01:00 01:15 01:30 Temperature Pulse Rate 96 H 95 H 95 H Pulse Rate [ Bilateral] Respiratory 13 14 13 Rate Respiratory Rate [Bilateral ] Blood Pressure 109/54 109/54 101/57 O2 Sat by Pulse 97 97 Oximetry 10/24/18 10/24/18 10/24/18 01:45 02:00 02:06 Temperature Pulse Rate 94 H 91 H Pulse Rate [ 93 H Bilateral] Respiratory 14 12 Rate Respiratory 15 Rate [Bilateral ] Blood Pressure 101/57 109/56 O2 Sat by Pulse 97 98 Oximetry 10/24/18 10/24/18 10/24/18 02:15 02:30 02:35 Temperature Pulse Rate 92 H 92 H Pulse Rate [ 95 H Bilateral] Respiratory 14 13 Rate Respiratory 19 Rate [Bilateral ] Blood Pressure 109/56 107/56 O2 Sat by Pulse 100 100 Oximetry 10/24/18 10/24/18 10/24/18 02:45 03:00 03:15 Temperature Pulse Rate 104 H 103 H 98 H Pulse Rate [ Bilateral] Respiratory 25 H 14 20 Rate Respiratory Rate [Bilateral ] Blood Pressure 107/56 99/46 99/46 O2 Sat by Pulse 87 100 95 Oximetry 10/24/18 10/24/18 10/24/18 03:30 03:45 04:01 Temperature 98.9 F Pulse Rate 104 H 106 H 109 H Pulse Rate [ Bilateral] Respiratory 21 23 19 Rate Respiratory Rate [Bilateral ] Blood Pressure 124/72 124/72 126/46 O2 Sat by Pulse 90 90 Oximetry 10/24/18 10/24/18 10/24/18 04:15 04:31 05:05 Temperature Pulse Rate 107 H 116 H 108 H Pulse Rate [ Bilateral] Respiratory 18 16 26 H Rate Respiratory Rate [Bilateral ] Blood Pressure 126/46 128/62 128/62 O2 Sat by Pulse 90 92 89 Oximetry 10/24/18 10/24/18 10/24/18 05:15 05:30 05:45 Temperature Pulse Rate 105 H 104 H Pulse Rate [ Bilateral] Respiratory 16 14 Rate Respiratory Rate [Bilateral ] Blood Pressure 128/62 128/53 128/62 O2 Sat by Pulse 91 100 100 Oximetry 10/24/18 10/24/18 10/24/18 06:00 06:15 06:30 Temperature Pulse Rate 101 H 101 H 100 H Pulse Rate [ Bilateral] Respiratory 14 15 12 Rate Respiratory Rate [Bilateral ] Blood Pressure 106/49 106/49 98/50 O2 Sat by Pulse 100 100 100 Oximetry 10/24/18 10/24/18 10/24/18 06:45 07:00 07:15 Temperature Pulse Rate 99 H 97 H 96 H Pulse Rate [ Bilateral] Respiratory 14 15 14 Rate Respiratory Rate [Bilateral ] Blood Pressure 98/50 100/49 100/49 O2 Sat by Pulse 100 100 100 Oximetry 10/24/18 10/24/18 10/24/18 07:30 07:45 07:55 Temperature 94.2 F L Pulse Rate 95 H 97 H Pulse Rate [ Bilateral] Respiratory 14 16 Rate Respiratory Rate [Bilateral ] Blood Pressure 97/51 97/51 O2 Sat by Pulse 100 100 Oximetry 10/24/18 10/24/18 10/24/18 08:00 08:15 08:30 Temperature Pulse Rate 93 H 94 H 92 H Pulse Rate [ Bilateral] Respiratory 14 13 14 Rate Respiratory Rate [Bilateral ] Blood Pressure 105/47 105/47 100/47 O2 Sat by Pulse 100 100 Oximetry 10/24/18 10/24/18 10/24/18 08:45 08:48 08:50 Temperature Pulse Rate 94 H Pulse Rate [ 93 H Bilateral] Respiratory 15 Rate Respiratory 15 Rate [Bilateral ] Blood Pressure 100/47 O2 Sat by Pulse 100 100 Oximetry 10/24/18 08:58 Temperature Pulse Rate Pulse Rate [ 95 H Bilateral] Respiratory Rate Respiratory 16 Rate [Bilateral ] Blood Pressure O2 Sat by Pulse Oximetry Constitutional: appears uncomfortable, other (middle aged and chronically ill looking AAM with increased resp effort at rest) Eyes: non-icteric ENT: oropharynx moist, other (mallampati 2) Neck: supple, no lymphadenopathy, no JVD, other (no thyromegaly) Effort: mildly labored Ascultation: Bilateral: diminished breath sounds, rhonchi Percussion: Bilateral: not dull Cardiovascular: regular rate and rhythm Gastrointestinal: normoactive bowel sounds, soft, non-tender, non-distended Integumentary: other (poor turgor) Extremities: no cyanosis, no edema, pulses normal, no ischemia or petechiae Neurologic: pupils equal and round, other (+ cognitive dysfunction; lethargic today) Psychiatric: other (flat ) CBC and BMP: 10/24/18 09:58 10/24/18 06:42 ABG, PT/INR, D-dimer: ABG POC ABG pH 7.347 (7.35-7.45) L 10/18/18 11:56 POC ABG pO2 72 (80-105) L 10/18/18 11:56 POC ABG HCO3 14.5 (22-26 mml/L) 10/18/18 11:56 POC ABG Total CO2 15 (23-27mmol/L) 10/18/18 11:56 POC ABG O2 Sat 94 10/18/18 11:56 Abnormal lab findings: Abnormal Labs 10/14/18 10/14/18 10/14/18 23:21 23:21 23:21 WBC RBC Hgb 10.2 L Hct 32.0 L MCH MCHC RDW 18.9 H Plt Count 100 L Seg Neuts % (Manual) 34.0 L Lymphocytes % (Manual) Monocytes % (Manual) Nucleated RBC % Seg Neutrophils # Man 1.7 L Abs Lymphs (Manual) Lymphocytes # (Manual) 0.8 L POC ABG pH POC ABG pCO2 POC ABG pO2 Sodium 156 H Potassium Chloride 117.8 H Carbon Dioxide 19 L BUN 124 H Creatinine 4.8 H Glucose POC Glucose Lactic Acid 4.90 H* Calcium Magnesium AST 72 H ALT Troponin T 0.034 H C-Reactive Protein Total Protein Albumin 1.9 L LDL Cholesterol Direct 13 L HDL Cholesterol 28 L Free T4 Thyroxine (T4) Urine Creatinine Urine Chloride Urine Total Protein Complement C3 Lymph Enumerat CD4/CD8 Absolute CD3 Count % CD4 Cells Absolute CD4 Count Absolute CD8 Count Absolute CD19 Count HIV-1 RNA PCR copies/ml HIV-1 RNA (PCR) log 10/15/18 10/15/18 10/15/18 00:50 03:46 04:29 WBC RBC Hgb Hct MCH MCHC RDW Plt Count Seg Neuts % (Manual) Lymphocytes % (Manual) Monocytes % (Manual) Nucleated RBC % Seg Neutrophils # Man Abs Lymphs (Manual) Lymphocytes # (Manual) POC ABG pH POC ABG pCO2 POC ABG pO2 Sodium Potassium Chloride Carbon Dioxide BUN Creatinine Glucose POC Glucose Lactic Acid 3.30 H* 2.20 H* 2.20 H* Calcium Magnesium AST ALT Troponin T C-Reactive Protein Total Protein Albumin LDL Cholesterol Direct HDL Cholesterol Free T4 Thyroxine (T4) Urine Creatinine Urine Chloride Urine Total Protein Complement C3 Lymph Enumerat CD4/CD8 Absolute CD3 Count % CD4 Cells Absolute CD4 Count Absolute CD8 Count Absolute CD19 Count HIV-1 RNA PCR copies/ml HIV-1 RNA (PCR) log 10/15/18 10/15/18 10/15/18 05:37 06:18 09:16 WBC RBC Hgb Hct MCH MCHC RDW Plt Count Seg Neuts % (Manual) Lymphocytes % (Manual) Monocytes % (Manual) Nucleated RBC % Seg Neutrophils # Man Abs Lymphs (Manual) Lymphocytes # (Manual) POC ABG pH POC ABG pCO2 POC ABG pO2 Sodium Potassium Chloride Carbon Dioxide BUN Creatinine Glucose POC Glucose Lactic Acid 2.30 H* 2.50 H* 3.10 H* Calcium Magnesium AST ALT Troponin T C-Reactive Protein Total Protein Albumin LDL Cholesterol Direct HDL Cholesterol Free T4 Thyroxine (T4) Urine Creatinine Urine Chloride Urine Total Protein Complement C3 Lymph Enumerat CD4/CD8 Absolute CD3 Count % CD4 Cells Absolute CD4 Count Absolute CD8 Count Absolute CD19 Count HIV-1 RNA PCR copies/ml HIV-1 RNA (PCR) log 10/15/18 10/15/18 10/15/18 09:16 13:03 15:13 WBC RBC Hgb Hct MCH MCHC RDW Plt Count Seg Neuts % (Manual) Lymphocytes % (Manual) Monocytes % (Manual) Nucleated RBC % Seg Neutrophils # Man Abs Lymphs (Manual) Lymphocytes # (Manual) POC ABG pH 7.308 L POC ABG pCO2 33.1 L POC ABG pO2 70 L Sodium 158 H Potassium Chloride 121.1 H Carbon Dioxide 19 L BUN 120 H Creatinine 4.3 H Glucose 119 H POC Glucose Lactic Acid 2.70 H* Calcium 8.0 L Magnesium AST ALT Troponin T C-Reactive Protein Total Protein Albumin LDL Cholesterol Direct HDL Cholesterol Free T4 Thyroxine (T4) Urine Creatinine Urine Chloride Urine Total Protein Complement C3 Lymph Enumerat CD4/CD8 Absolute CD3 Count % CD4 Cells Absolute CD4 Count Absolute CD8 Count Absolute CD19 Count HIV-1 RNA PCR copies/ml HIV-1 RNA (PCR) log 10/15/18 10/15/18 10/16/18 15:13 15:13 05:18 WBC 4.2 L RBC Hgb 10.8 L Hct 34.9 L MCH 27 L MCHC 31 L RDW 19.6 H Plt Count 38 L Seg Neuts % (Manual) 39.0 L Lymphocytes % (Manual) 9.0 L Monocytes % (Manual) 12.0 H Nucleated RBC % Seg Neutrophils # Man 1.6 L Abs Lymphs (Manual) 309 L Lymphocytes # (Manual) 0.4 L POC ABG pH POC ABG pCO2 POC ABG pO2 Sodium Potassium Chloride Carbon Dioxide BUN Creatinine Glucose POC Glucose Lactic Acid Calcium Magnesium AST ALT Troponin T C-Reactive Protein Total Protein Albumin LDL Cholesterol Direct HDL Cholesterol Free T4 Thyroxine (T4) Urine Creatinine Urine Chloride Urine Total Protein Complement C3 Lymph Enumerat CD4/CD8 0.84 L Absolute CD3 Count 187 L % CD4 Cells 28 L Absolute CD4 Count 88 L Absolute CD8 Count 104 L Absolute CD19 Count 82 L HIV-1 RNA PCR copies/ml <20 H HIV-1 RNA (PCR) log <1.30 H 10/16/18 10/16/18 10/16/18 05:18 12:40 12:40 WBC RBC Hgb Hct MCH MCHC RDW Plt Count Seg Neuts % (Manual) Lymphocytes % (Manual) Monocytes % (Manual) Nucleated RBC % Seg Neutrophils # Man Abs Lymphs (Manual) Lymphocytes # (Manual) POC ABG pH POC ABG pCO2 POC ABG pO2 Sodium 161 H* Potassium 3.5 L Chloride 130.6 H Carbon Dioxide 18 L BUN 105 H Creatinine 3.4 H Glucose POC Glucose Lactic Acid Calcium Magnesium AST 522 H ALT 167 H Troponin T C-Reactive Protein Total Protein Albumin 1.5 L LDL Cholesterol Direct HDL Cholesterol Free T4 0.38 L Thyroxine (T4) 1.8 L Urine Creatinine Urine Chloride Urine Total Protein Complement C3 Lymph Enumerat CD4/CD8 Absolute CD3 Count % CD4 Cells Absolute CD4 Count Absolute CD8 Count Absolute CD19 Count HIV-1 RNA PCR copies/ml HIV-1 RNA (PCR) log 10/16/18 10/16/18 10/17/18 15:19 23:43 00:17 WBC RBC Hgb Hct MCH MCHC RDW Plt Count Seg Neuts % (Manual) Lymphocytes % (Manual) Monocytes % (Manual) Nucleated RBC % Seg Neutrophils # Man Abs Lymphs (Manual) Lymphocytes # (Manual) POC ABG pH POC ABG pCO2 POC ABG pO2 62 L 63 L Sodium Potassium Chloride Carbon Dioxide BUN Creatinine Glucose POC Glucose 174 H Lactic Acid Calcium Magnesium AST ALT Troponin T C-Reactive Protein Total Protein Albumin LDL Cholesterol Direct HDL Cholesterol Free T4 Thyroxine (T4) Urine Creatinine Urine Chloride Urine Total Protein Complement C3 Lymph Enumerat CD4/CD8 Absolute CD3 Count % CD4 Cells Absolute CD4 Count Absolute CD8 Count Absolute CD19 Count HIV-1 RNA PCR copies/ml HIV-1 RNA (PCR) log 10/17/18 10/17/18 10/17/18 06:55 11:57 14:41 WBC RBC Hgb Hct MCH MCHC RDW Plt Count Seg Neuts % (Manual) Lymphocytes % (Manual) Monocytes % (Manual) Nucleated RBC % Seg Neutrophils # Man Abs Lymphs (Manual) Lymphocytes # (Manual) POC ABG pH POC ABG pCO2 POC ABG pO2 Sodium 150 H D Potassium 3.3 L Chloride 122.3 H Carbon Dioxide 18 L BUN 91 H Creatinine 2.9 H Glucose 140 H POC Glucose 129 H 174 H Lactic Acid Calcium 8.0 L Magnesium 1.60 L AST ALT Troponin T C-Reactive Protein Total Protein Albumin LDL Cholesterol Direct HDL Cholesterol Free T4 Thyroxine (T4) Urine Creatinine Urine Chloride Urine Total Protein Complement C3 Lymph Enumerat CD4/CD8 Absolute CD3 Count % CD4 Cells Absolute CD4 Count Absolute CD8 Count Absolute CD19 Count HIV-1 RNA PCR copies/ml HIV-1 RNA (PCR) log 10/17/18 10/17/18 10/17/18 14:41 18:56 19:03 WBC RBC Hgb Hct MCH MCHC RDW Plt Count Seg Neuts % (Manual) Lymphocytes % (Manual) Monocytes % (Manual) Nucleated RBC % Seg Neutrophils # Man Abs Lymphs (Manual) Lymphocytes # (Manual) POC ABG pH POC ABG pCO2 POC ABG pO2 Sodium Potassium Chloride Carbon Dioxide BUN Creatinine Glucose POC Glucose 125 H Lactic Acid Calcium Magnesium AST ALT Troponin T C-Reactive Protein 21.20 H Total Protein Albumin LDL Cholesterol Direct HDL Cholesterol Free T4 Thyroxine (T4) Urine Creatinine Urine Chloride Urine Total Protein Complement C3 76 L Lymph Enumerat CD4/CD8 Absolute CD3 Count % CD4 Cells Absolute CD4 Count Absolute CD8 Count Absolute CD19 Count HIV-1 RNA PCR copies/ml HIV-1 RNA (PCR) log 10/17/18 10/17/18 10/17/18 19:45 21:24 23:54 WBC RBC Hgb Hct MCH MCHC RDW Plt Count Seg Neuts % (Manual) Lymphocytes % (Manual) Monocytes % (Manual) Nucleated RBC % Seg Neutrophils # Man Abs Lymphs (Manual) Lymphocytes # (Manual) POC ABG pH 7.328 L POC ABG pCO2 POC ABG pO2 66 L Sodium Potassium Chloride Carbon Dioxide BUN Creatinine Glucose POC Glucose 128 H Lactic Acid Calcium Magnesium AST ALT Troponin T C-Reactive Protein Total Protein Albumin LDL Cholesterol Direct HDL Cholesterol Free T4 Thyroxine (T4) Urine Creatinine 36.3 H Urine Chloride 39.3 L Urine Total Protein 49 H Complement C3 Lymph Enumerat CD4/CD8 Absolute CD3 Count % CD4 Cells Absolute CD4 Count Absolute CD8 Count Absolute CD19 Count HIV-1 RNA PCR copies/ml HIV-1 RNA (PCR) log 10/18/18 10/18/18 10/18/18 00:50 05:55 11:56 WBC RBC 3.23 L Hgb 8.9 L Hct 27.4 L D MCH MCHC RDW 19.6 H Plt Count 56 L Seg Neuts % (Manual) 81.0 H Lymphocytes % (Manual) 9.0 L Monocytes % (Manual) Nucleated RBC % 1.0 H Seg Neutrophils # Man 8.4 H Abs Lymphs (Manual) Lymphocytes # (Manual) 0.9 L POC ABG pH 7.347 L POC ABG pCO2 POC ABG pO2 72 L Sodium Potassium Chloride Carbon Dioxide BUN Creatinine Glucose POC Glucose 147 H Lactic Acid Calcium Magnesium AST ALT Troponin T C-Reactive Protein Total Protein Albumin LDL Cholesterol Direct HDL Cholesterol Free T4 Thyroxine (T4) Urine Creatinine Urine Chloride Urine Total Protein Complement C3 Lymph Enumerat CD4/CD8 Absolute CD3 Count % CD4 Cells Absolute CD4 Count Absolute CD8 Count Absolute CD19 Count HIV-1 RNA PCR copies/ml HIV-1 RNA (PCR) log 10/18/18 10/18/18 10/19/18 16:41 23:18 05:02 WBC RBC Hgb Hct MCH MCHC RDW Plt Count Seg Neuts % (Manual) Lymphocytes % (Manual) Monocytes % (Manual) Nucleated RBC % Seg Neutrophils # Man Abs Lymphs (Manual) Lymphocytes # (Manual) POC ABG pH POC ABG pCO2 POC ABG pO2 Sodium 151 H 150 H Potassium Chloride 122.8 H 123.1 H Carbon Dioxide 16 L 16 L BUN 91 H 87 H Creatinine 2.3 H 2.2 H Glucose 158 H 116 H POC Glucose 148 H Lactic Acid Calcium 8.0 L Magnesium AST ALT Troponin T C-Reactive Protein Total Protein Albumin LDL Cholesterol Direct HDL Cholesterol Free T4 Thyroxine (T4) Urine Creatinine Urine Chloride Urine Total Protein Complement C3 Lymph Enumerat CD4/CD8 Absolute CD3 Count % CD4 Cells Absolute CD4 Count Absolute CD8 Count Absolute CD19 Count HIV-1 RNA PCR copies/ml HIV-1 RNA (PCR) log 10/19/18 10/19/18 10/19/18 05:51 11:03 17:16 WBC RBC Hgb Hct MCH MCHC RDW Plt Count Seg Neuts % (Manual) Lymphocytes % (Manual) Monocytes % (Manual) Nucleated RBC % Seg Neutrophils # Man Abs Lymphs (Manual) Lymphocytes # (Manual) POC ABG pH POC ABG pCO2 POC ABG pO2 Sodium Potassium Chloride Carbon Dioxide BUN Creatinine Glucose POC Glucose 123 H 171 H 181 H Lactic Acid Calcium Magnesium AST ALT Troponin T C-Reactive Protein Total Protein Albumin LDL Cholesterol Direct HDL Cholesterol Free T4 Thyroxine (T4) Urine Creatinine Urine Chloride Urine Total Protein Complement C3 Lymph Enumerat CD4/CD8 Absolute CD3 Count % CD4 Cells Absolute CD4 Count Absolute CD8 Count Absolute CD19 Count HIV-1 RNA PCR copies/ml HIV-1 RNA (PCR) log 10/19/18 10/20/1810/20/19 23:52 05:18 06:06 WBC RBC Hgb Hct MCH MCHC RDW Plt Count Seg Neuts % (Manual) Lymphocytes % (Manual) Monocytes % (Manual) Nucleated RBC % Seg Neutrophils # Man Abs Lymphs (Manual) Lymphocytes # (Manual) POC ABG pH POC ABG pCO2 POC ABG pO2 Sodium 147 H Potassium Chloride 116.9 H Carbon Dioxide 18 L BUN 89 H Creatinine 1.8 H Glucose 208 H POC Glucose 195 H 223 H Lactic Acid Calcium 7.8 L Magnesium AST ALT Troponin T C-Reactive Protein Total Protein Albumin LDL Cholesterol Direct HDL Cholesterol Free T4 Thyroxine (T4) Urine Creatinine Urine Chloride Urine Total Protein Complement C3 Lymph Enumerat CD4/CD8 Absolute CD3 Count % CD4 Cells Absolute CD4 Count Absolute CD8 Count Absolute CD19 Count HIV-1 RNA PCR copies/ml HIV-1 RNA (PCR) log 10/20/18 10/20/18 10/21/18 12:14 22:42 04:44 WBC RBC Hgb Hct MCH MCHC RDW Plt Count Seg Neuts % (Manual) Lymphocytes % (Manual) Monocytes % (Manual) Nucleated RBC % Seg Neutrophils # Man Abs Lymphs (Manual) Lymphocytes # (Manual) POC ABG pH POC ABG pCO2 POC ABG pO2 Sodium 146 H Potassium Chloride 115.6 H Carbon Dioxide 19 L BUN 90 H Creatinine 1.6 H Glucose 168 H POC Glucose 238 H 164 H Lactic Acid Calcium Magnesium AST ALT Troponin T C-Reactive Protein Total Protein Albumin LDL Cholesterol Direct HDL Cholesterol Free T4 Thyroxine (T4) Urine Creatinine Urine Chloride Urine Total Protein Complement C3 Lymph Enumerat CD4/CD8 Absolute CD3 Count % CD4 Cells Absolute CD4 Count Absolute CD8 Count Absolute CD19 Count HIV-1 RNA PCR copies/ml HIV-1 RNA (PCR) log 10/21/18 10/21/18 10/22/18 05:27 17:44 01:29 WBC RBC Hgb Hct MCH MCHC RDW Plt Count Seg Neuts % (Manual) Lymphocytes % (Manual) Monocytes % (Manual) Nucleated RBC % Seg Neutrophils # Man Abs Lymphs (Manual) Lymphocytes # (Manual) POC ABG pH POC ABG pCO2 POC ABG pO2 Sodium Potassium Chloride Carbon Dioxide BUN Creatinine Glucose POC Glucose 172 H 167 H 175 H Lactic Acid Calcium Magnesium AST ALT Troponin T C-Reactive Protein Total Protein Albumin LDL Cholesterol Direct HDL Cholesterol Free T4 Thyroxine (T4) Urine Creatinine Urine Chloride Urine Total Protein Complement C3 Lymph Enumerat CD4/CD8 Absolute CD3 Count % CD4 Cells Absolute CD4 Count Absolute CD8 Count Absolute CD19 Count HIV-1 RNA PCR copies/ml HIV-1 RNA (PCR) log 10/22/18 10/22/18 10/22/18 04:29 06:03 11:17 WBC RBC Hgb Hct MCH MCHC RDW Plt Count Seg Neuts % (Manual) Lymphocytes % (Manual) Monocytes % (Manual) Nucleated RBC % Seg Neutrophils # Man Abs Lymphs (Manual) Lymphocytes # (Manual) POC ABG pH POC ABG pCO2 POC ABG pO2 Sodium 151 H Potassium 3.4 L D Chloride 119.4 H Carbon Dioxide 18 L BUN 84 H Creatinine Glucose 125 H POC Glucose 113 H 174 H Lactic Acid Calcium 8.0 L Magnesium AST ALT Troponin T C-Reactive Protein Total Protein Albumin LDL Cholesterol Direct HDL Cholesterol Free T4 Thyroxine (T4) Urine Creatinine Urine Chloride Urine Total Protein Complement C3 Lymph Enumerat CD4/CD8 Absolute CD3 Count % CD4 Cells Absolute CD4 Count Absolute CD8 Count Absolute CD19 Count HIV-1 RNA PCR copies/ml HIV-1 RNA (PCR) log 10/22/18 10/22/18 10/22/18 14:14 14:45 18:16 WBC RBC Hgb Hct MCH MCHC RDW Plt Count Seg Neuts % (Manual) Lymphocytes % (Manual) Monocytes % (Manual) Nucleated RBC % Seg Neutrophils # Man Abs Lymphs (Manual) Lymphocytes # (Manual) POC ABG pH POC ABG pCO2 POC ABG pO2 Sodium 147 H Potassium Chloride 118.0 H Carbon Dioxide 18 L BUN 71 H Creatinine Glucose 178 H POC Glucose 180 H 185 H Lactic Acid Calcium 7.6 L Magnesium AST ALT Troponin T C-Reactive Protein Total Protein Albumin LDL Cholesterol Direct HDL Cholesterol Free T4 Thyroxine (T4) Urine Creatinine Urine Chloride Urine Total Protein Complement C3 Lymph Enumerat CD4/CD8 Absolute CD3 Count % CD4 Cells Absolute CD4 Count Absolute CD8 Count Absolute CD19 Count HIV-1 RNA PCR copies/ml HIV-1 RNA (PCR) log 10/22/18 10/22/18 10/22/18 19:28 19:28 19:31 WBC 20.5 H RBC 2.70 L Hgb 7.1 L Hct 22.7 L MCH 27 L MCHC RDW 19.6 H Plt Count 87 L Seg Neuts % (Manual) 93.0 H Lymphocytes % (Manual) 3.0 L Monocytes % (Manual) Nucleated RBC % Seg Neutrophils # Man 19.1 H Abs Lymphs (Manual) Lymphocytes # (Manual) 0.6 L POC ABG pH POC ABG pCO2 POC ABG pO2 Sodium 147 H Potassium 3.4 L Chloride 116.5 H Carbon Dioxide 18 L BUN 67 H Creatinine Glucose 182 H POC Glucose Lactic Acid Calcium 7.4 L Magnesium AST ALT Troponin T C-Reactive Protein 5.40 H Total Protein 5.0 L Albumin 1.7 L LDL Cholesterol Direct HDL Cholesterol Free T4 Thyroxine (T4) Urine Creatinine Urine Chloride Urine Total Protein Complement C3 Lymph Enumerat CD4/CD8 Absolute CD3 Count % CD4 Cells Absolute CD4 Count Absolute CD8 Count Absolute CD19 Count HIV-1 RNA PCR copies/ml HIV-1 RNA (PCR) log 10/22/18 10/23/18 10/23/18 23:36 00:11 04:23 WBC RBC Hgb Hct MCH MCHC RDW Plt Count Seg Neuts % (Manual) Lymphocytes % (Manual) Monocytes % (Manual) Nucleated RBC % Seg Neutrophils # Man Abs Lymphs (Manual) Lymphocytes # (Manual) POC ABG pH POC ABG pCO2 POC ABG pO2 Sodium Potassium 3.4 L 3.5 L Chloride 114.0 H 114.1 H Carbon Dioxide 19 L 19 L BUN 66 H 59 H Creatinine Glucose 176 H 153 H POC Glucose 174 H Lactic Acid Calcium 7.9 L 7.4 L Magnesium AST ALT Troponin T C-Reactive Protein Total Protein 5.2 L Albumin 1.5 L LDL Cholesterol Direct HDL Cholesterol Free T4 Thyroxine (T4) Urine Creatinine Urine Chloride Urine Total Protein Complement C3 Lymph Enumerat CD4/CD8 Absolute CD3 Count % CD4 Cells Absolute CD4 Count Absolute CD8 Count Absolute CD19 Count HIV-1 RNA PCR copies/ml HIV-1 RNA (PCR) log 10/23/18 10/23/18 10/23/18 05:35 12:03 14:05 WBC RBC Hgb Hct MCH MCHC RDW Plt Count Seg Neuts % (Manual) Lymphocytes % (Manual) Monocytes % (Manual) Nucleated RBC % Seg Neutrophils # Man Abs Lymphs (Manual) Lymphocytes # (Manual) POC ABG pH POC ABG pCO2 POC ABG pO2 Sodium Potassium Chloride Carbon Dioxide BUN Creatinine Glucose POC Glucose 159 H 143 H 183 H Lactic Acid Calcium Magnesium AST ALT Troponin T C-Reactive Protein Total Protein Albumin LDL Cholesterol Direct HDL Cholesterol Free T4 Thyroxine (T4) Urine Creatinine Urine Chloride Urine Total Protein Complement C3 Lymph Enumerat CD4/CD8 Absolute CD3 Count % CD4 Cells Absolute CD4 Count Absolute CD8 Count Absolute CD19 Count HIV-1 RNA PCR copies/ml HIV-1 RNA (PCR) log 10/23/18 10/23/18 10/24/18 16:23 23:55 05:34 WBC RBC Hgb Hct MCH MCHC RDW Plt Count Seg Neuts % (Manual) Lymphocytes % (Manual) Monocytes % (Manual) Nucleated RBC % Seg Neutrophils # Man Abs Lymphs (Manual) Lymphocytes # (Manual) POC ABG pH POC ABG pCO2 POC ABG pO2 Sodium Potassium Chloride Carbon Dioxide BUN Creatinine Glucose POC Glucose 195 H 242 H 204 H Lactic Acid Calcium Magnesium AST ALT Troponin T C-Reactive Protein Total Protein Albumin LDL Cholesterol Direct HDL Cholesterol Free T4 Thyroxine (T4) Urine Creatinine Urine Chloride Urine Total Protein Complement C3 Lymph Enumerat CD4/CD8 Absolute CD3 Count % CD4 Cells Absolute CD4 Count Absolute CD8 Count Absolute CD19 Count HIV-1 RNA PCR copies/ml HIV-1 RNA (PCR) log 10/24/18 06:42 WBC RBC Hgb Hct MCH MCHC RDW Plt Count Seg Neuts % (Manual) Lymphocytes % (Manual) Monocytes % (Manual) Nucleated RBC % Seg Neutrophils # Man Abs Lymphs (Manual) Lymphocytes # (Manual) POC ABG pH POC ABG pCO2 POC ABG pO2 Sodium Potassium Chloride 113.0 H Carbon Dioxide 19 L BUN 53 H Creatinine Glucose 181 H POC Glucose Lactic Acid Calcium 7.8 L Magnesium AST ALT Troponin T C-Reactive Protein Total Protein Albumin LDL Cholesterol Direct HDL Cholesterol Free T4 Thyroxine (T4) Urine Creatinine Urine Chloride Urine Total Protein Complement C3 Lymph Enumerat CD4/CD8 Absolute CD3 Count % CD4 Cells Absolute CD4 Count Absolute CD8 Count Absolute CD19 Count HIV-1 RNA PCR copies/ml HIV-1 RNA (PCR) log Allied health notes reviewed: nursing
[2018-10-24] MEDS ORDERED: NACL 0.9% 250ML 250 ML IV ONE (09:30)
[2018-10-24] MEDS: PREZISTA PO SCH (09:36)
[2018-10-24] MEDS: ASPIRIN FEEDTUBE SCH (09:36)
[2018-10-24] MEDS: VITAMIN D3 FEEDTUBE SCH (09:36)
[2018-10-24] MEDS: EPIVIR PO SCH (09:37)
[2018-10-24] MEDS: PROzac PO SCH (09:38)
--- NOTE | 2018-10-24 09:39 | Progress Note ---
Assessment and Plan Cultures: Blood culture 10/14/2018 Staph Aureus, 2 out of 4 bottles, maguire suceptibile Blood culture 10/16/2018:no growth Urine culture 10/14/2018 negative Assessment: 58-year-old male with history of HIV AIDS, cachexia, toxoplasmosis, CVA with residual weakness, status post tracheostomy reversal for previous respiratory failure, syphilitic encephalitis, traumatic brain injury, cocaine and tobacco a buse, detention resident at [facility]; readmitted on 10/14/2018 due to AMS/lethargic and worsening shortness of breath for 34 hours. Patient is not able to provide a history, currently non verbal in mild respiratory distress. 1) Sepsis: Improved. off pressors. Noted leukocytosis. Etiology most likely pneumonia +/- staph aureus. Repeat CXR king opacities 2) Pneumonia: possible aspiration pneumonia vs HAP. CXR showed probably COPD and right sided pneumonia. 3) MSSA Bacteremia:. Blood culture 10/14/2018 showed Staph aureaus 2 out of 4 bottles.. Source unclear. TTE shows no vegetation. Repeat blood cultures show no growth to date. 4) Recent bilateral pneumonia, R>L causing acute respiratory failure, it was felt probably HCAP vs aspiration treated with cefepime and flagyl IV then changed to augmentin suspension 875mg PO BID for total 7 days. admission 08/27- 09/01/2018 5) HIV / AIDS: last viral load in March 2018 was undetectable and CD4 count was more than 700 on tenofovir, lamivudine, ritonavir boosted darunavir, current VL less than 20. CD4=88. Antiretrovirals restarted 10/19/18. 6) Acute on Chronic respiratory failure 7) Acute on chronic encephalopathy 8) Cachexia 9) DAMON: antibiotic renally dosed. Will contact pharmacy to restart ART therapy renally dosed Recommendations: - check CBC, monitor leukocytosis, if not better will consider chest CT and sputum cultures as copious secretions - continue cefazolin 2gms IV every 8 hours, D10 - continue Mepron 750 bid for PJP prophylaxis - continue tenofovir, ritonavir, lamiivudine and darunavir - Anticipate discharge on Cefazolin 2 gm IV q8 hour for 2 weeks until 10/28/2018. Order placed for welfare case worker. Will follow Swati Mchugh MD Infectious Diseases [employer] [facility] ([facility] M [phone] O [phone] Subjective Date of service: 10/24/18 Principal diagnosis: Ac Hypoxemic Resp Failure; Pneumonia (HAP); Acute enceph alopathy ; HIV/AIDS Interval history: Remains alert, non verbal, on ventimask no fever. ROS unable to obtain Objective - Exam Narrative Exam: General appearance: alert non verbal on venti mask Eyes: anicteric sclerae, moist conjunctivae; no lid-lag; PERRLA HENT: Atraumatic; oropharynx limited Neck: Trachea midline; supple, no thyromegaly or lymphadenopathy Lungs: king copious rhonchi CV: tachycardia Abdomen: Soft, non-tender; +PEG Extremities: No peripheral edema or extremity lymphadenopathy Skin: diffuse skin desquamation Psych: no agitated. Neuro: alert non verbal position - Constitutional Vitals: Vital Signs Temp Pulse Resp BP Pulse Ox 94.2 F L 93 H 14 92/46 100 10/24/18 07:55 10/24/18 09:00 10/24/18 09:00 10/24/18 09:00 10/24/18 09:00 Temperature -Last 24 Hours Temperature 94.2 F Temperature 98.9 F Temperature 98.4 F Temperature 97.5 F Temperature 97.5 F Temperature 97.8 F Temperature 97.8 F Temperature 98.4 F - Labs CBC & Chem 7: 10/22/18 19:28 10/24/18 06:42 Labs: Abnormal lab results 10/23/18 10/23/18 10/23/18 Range/Units 05:35 12:03 14:05 Chloride (98-107) mmol/L Carbon Dioxide (22-30) mmol/L BUN (9-20) mg/dL Glucose (75-100) mg/dL POC Glucose 159 H 143 H 183 H (70-105) Calcium (8.4-10.2) mg/dL 10/23/18 10/23/18 10/24/18 Range/Units 16:23 23:55 05:34 Chloride (98-107) mmol/L Carbon Dioxide (22-30) mmol/L BUN (9-20) mg/dL Glucose (75-100) mg/dL POC Glucose 195 H 242 H 204 H (70-105) Calcium (8.4-10.2) mg/dL 10/24/18 Range/Units 06:42 Chloride 113.0 H (98-107) mmol/L Carbon Dioxide 19 L (22-30) mmol/L BUN 53 H (9-20) mg/dL Glucose 181 H (75-100) mg/dL POC Glucose (70-105) Calcium 7.8 L (8.4-10.2) mg/dL
[2018-10-24] MEDS: NORVIR PO SCH (09:40)
[2018-10-24] MEDS: MEPRON PO SCH (09:40)
[2018-10-24] MEDS: SODIUM CHLORIDE FLUSH SYRINGE 10 ML IV SCH (09:41)
[2018-10-24] MEDS: PEPCID IV SCH (09:41)
[2018-10-24] MEDS: VIREAD PO SCH (10:00)
[2018-10-24] MEDS ORDERED: DELTASONE PO SCH (10:00)
[2018-10-24 10:13] LABS: Hematocrit 21.4 % (35.5-45.6); Hemoglobin 6.8 gm/dl (11.8-15.2); Mean Corpuscular HGB Conc 32 % (32-34); Mean Corpuscular Volume 86 fl (84-94); Red Blood Count 2.49 M/mm3 (3.65-5.03); Red Cell Distribution Width 19.7 % (13.2-15.2)
[2018-10-24 10:14] LABS: Platelet Count 92 K/mm3 (140-440)
--- NOTE | 2018-10-24 11:39 | Progress Note ---
Assessment and Plan Assessment and plan: 58 year old man with history of HIV, toxoplasmosis, severe the reservoir deficits, syphilitic encephalopathy, history of polysubstance abuse including cocaine. He status post trach and trach traversal, has a g-tube still intact. The patient was brought from [facility] for respiratory distress and altered mental status Sepsis secondary to pneumonia, septic shock, mssa septicemia - ID is following him, cont pressors, IVF bolus given -on iv abx and PJP ppx Acute kidney injury due to vasomotor nephropathy and ATN - IV fluids, nephrology input appreciated Hypernatremia free water via g-tube Acute hypoxic respiratory failure - Continue oxygen via venti mask and BiPAP as tolerated Hypothyroidism - thyroid function tests show low T4 and low free T4, increased synthroid dose HIV-AIDS mgt per ID DVT prophylaxis with heparin subcutaneously back to CA when improved Critical care time 35 minutes History Interval history: fever resolved, less agitated, more sob today and having more resp distress increased work of breathing, has been hypotensive, no vomiting, no reported cp, no seizures Hospitalist Physical - Physical exam Narrative exam: General.: Appears ill and toxic , emaciated HEENT: Moist mucous membranes, extraocular muscles intact, no lymphadenopathy Neck: supple Cardiac: S1-S2 heard Lungs: crackles, diminished Abdomen: soft , nontender, nondistended, bowel sounds positive Extremities: no edema clubbing or cyanosis, contracted extremities Skin: no rash or lesions Neurologic: altered, moved extremiites, does not obey commands Psych: does not obey commands, lethargic - Constitutional Vitals: Temp Pulse Resp BP Pulse Ox 94.2 F L 93 H 10 L 98/50 100 10/24/18 07:55 10/24/18 11:15 10/24/18 11:15 10/24/18 11:15 10/24/18 11:15 General appearance: Present: severe distress, cachectic Results - Labs CBC & Chem 7: 10/24/18 09:58 10/24/18 06:42 Labs: Laboratory Last Values WBC 15.4 K/mm3 (4.5-11.0) H 10/24/18 09:58 RBC 2.49 M/mm3 (3.65-5.03) L 10/24/18 09:58 Hgb 6.8 gm/dl (11.8-15.2) L 10/24/18 09:58 Hct 21.4 % (35.5-45.6) L 10/24/18 09:58 MCV 86 fl (84-94) 10/24/18 09:58 MCH 27 pg (28-32) L 10/24/18 09:58 MCHC 32 % (32-34) 10/24/18 09:58 RDW 19.7 % (13.2-15.2) H 10/24/18 09:58 Plt Count 92 K/mm3 (140-440) L 10/24/18 09:58 Lymph % (Auto) Warranty Administrator 10/14/18 23:21 Barry % (Auto) Warranty Administrator 10/14/18 23:21 Eos % (Auto) Warranty Administrator 10/14/18 23:21 Baso % (Auto) Warranty Administrator 10/14/18 23:21 Lymph # Warranty Administrator 10/14/18 23:21 Barry # Warranty Administrator 10/14/18 23:21 Eos # Warranty Administrator 10/14/18 23:21 Baso # Warranty Administrator 10/14/18 23:21 Add Manual Diff Complete 10/22/18 19:28 Total Counted 100 10/22/18 19:28 Seg Neutrophils % Warranty Administrator 10/24/18 09:58 Seg Neuts % (Manual) 93.0 % (40.0-70.0) H 10/22/18 19:28 1.0 % 10/22/18 19:28 3.0 % (13.4-35.0) L 10/22/18 19:28 Reactive Lymphs % (Man) 0 % 10/22/18 19:28 3.0 % (0.0-7.3) 10/22/18 19:28 0 % (0.0-4.3) 10/22/18 19:28 0 % (0.0-1.8) 10/22/18 19:28 0 % 10/22/18 19:28 0 % 10/22/18 19:28 0 % 10/22/18 19:28 0 % 10/22/18 19:28 Nucleated RBC % Not Reportable 10/22/18 19:28 Seg Neutrophils # Warranty Administrator 10/14/18 23:21 Seg Neutrophils # Man 19.1 K/mm3 (1.8-7.7) H 10/22/18 19:28 Band Neutrophils # 0.2 K/mm3 10/22/18 19:28 Abs Lymphs (Manual) 309 cells/uL (850-3900) L 10/15/18 15:13 0.6 K/mm3 (1.2-5.4) L 10/22/18 19:28 Abs React Lymphs (Man) 0.0 K/mm3 10/22/18 19:28 0.6 K/mm3 (0.0-0.8) 10/22/18 19:28 0.0 K/mm3 (0.0-0.4) 10/22/18 19:28 0.0 K/mm3 (0.0-0.1) 10/22/18 19:28 0.0 K/mm3 10/22/18 19:28 0.0 K/mm3 10/22/18 19:28 0.0 K/mm3 10/22/18 19:28 Blast Cells # 0.0 K/mm3 10/22/18 19:28 WBC Morphology Not Reportable 10/22/18 19:28 WBC Morphology TNR 10/22/18 19:28 Hypersegmented Neuts Not Reportable 10/22/18 19:28 Hyposegmented Neuts Not Reportable 10/22/18 19:28 Hypogranular Neuts Not Reportable 10/22/18 19:28 Not Reportable 10/22/18 19:28 Not Reportable 10/22/18 19:28 Not Reportable 10/22/18 19:28 Not Reportable 10/22/18 19:28 Not Reportable 10/22/18 19:28 Not Reportable 10/22/18 19:28 Consistent w auto 10/22/18 19:28 Not Reportable 10/22/18 19:28 Plt Clumps, EDTA Not Reportable 10/22/18 19:28 Not Reportable 10/22/18 19:28 Not Reportable 10/22/18 19:28 Not Reportable 10/22/18 19:28 Plt Morphology Comment Not Reportable 10/22/18 19:28 RBC Morphology Not Reportable 10/22/18 19:28 Dimorphic RBCs Not Reportable 10/22/18 19:28 Not Reportable 10/22/18 19:28 1+ 10/22/18 19:28 Not Reportable 10/22/18 19:28 1+ 10/22/18 19:28 Not Reportable 10/22/18 19:28 Not Reportable 10/22/18 19:28 Not Reportable 10/22/18 19:28 Not Reportable 10/22/18 19:28 Not Reportable 10/22/18 19:28 Few 10/22/18 19:28 Not Reportable 10/22/18 19:28 Not Reportable 10/22/18 19:28 Not Reportable 10/22/18 19:28 Not Reportable 10/22/18 19:28 Not Reportable 10/22/18 19:28 Not Reportable 10/22/18 19:28 Not Reportable 10/22/18 19:28 Not Reportable 10/22/18 19:28 Not Reportable 10/22/18 19:28 Acanthocytes (Spur) Not Reportable 10/22/18 19:28 Rouleaux Not Reportable 10/22/18 19:28 Not Reportable 10/22/18 19:28 Not Reportable 10/22/18 19:28 Not Reportable 10/22/18 19:28 Not Reportable 10/22/18 19:28 Hem Pathologist Commnt No 10/22/18 19:28 POC ABG pH 7.347 (7.35-7.45) L 10/18/18 11:56 POC ABG pCO2 33.1 (35-45) L 10/15/18 13:03 POC ABG pO2 72 (80-105) L 10/18/18 11:56 POC ABG HCO3 14.5 (22-26 mml/L) 10/18/18 11:56 POC ABG Total CO2 15 (23-27mmol/L) 10/18/18 11:56 POC ABG O2 Sat 94 10/18/18 11:56 POC ABG Base Excess -11 ((-2) - (+3)mmol/L) 10/18/18 11:56 50 % 10/18/18 11:56 Sodium 143 mmol/L (137-145) 10/24/18 06:42 Potassium 3.6 mmol/L (3.6-5.0) 10/24/18 06:42 Chloride 113.0 mmol/L (98-107) H 10/24/18 06:42 Carbon Dioxide 19 mmol/L (22-30) L 10/24/18 06:42 15 mmol/L 10/24/18 06:42 BUN 53 mg/dL (9-20) H 10/24/18 06:42 1.2 mg/dL (0.8-1.5) 10/24/18 06:42 Estimated GFR > 60 ml/min 10/24/18 06:42 44 % 10/24/18 06:42 Glucose 181 mg/dL (75-100) H 10/24/18 06:42 POC Glucose 204 (70-105) H 10/24/18 05:34 Lactic Acid 1.80 mmol/L (0.7-2.0) 10/22/18 19:28 Calcium 7.8 mg/dL (8.4-10.2) L 10/24/18 06:42 Phosphorus 3.40 mg/dL (2.5-4.5) 10/18/18 16:41 Magnesium 2.10 mg/dL (1.7-2.3) 10/19/18 05:02 0.20 mg/dL (0.1-1.2) 10/23/18 00:11 AST 23 units/L (5-40) 10/23/18 00:11 ALT 9 units/L (7-56) 10/23/18 00:11 62 units/L (35-129) 10/23/18 00:11 0.034 ng/mL (0.00-0.029) H 10/14/18 23:21 5.40 mg/dL (0.00-1.30) H 10/22/18 19:28 5.2 g/dL (6.3-8.2) L 10/23/18 00:11 1.5 g/dL (3.9-5) L 10/23/18 00:11 0.4 % 10/23/18 00:11 Triglycerides 63 mg/dL (2-149) 10/14/18 23:21 Cholesterol 59 mg/dL (50-199) 10/14/18 23:21 13 mg/dL (50-130) L 10/14/18 23:21 28 mg/dL (40-59) L 10/14/18 23:21 2.10 % 10/14/18 23:21 TSH 2.560 mlU/mL (0.270-4.200) 10/16/18 12:40 Free T4 0.38 ng/dL (0.76-1.46) L 10/16/18 12:40 1.8 ug/dL (4.0-12.0) L 10/16/18 12:40 Lindsay (Yellow) 10/14/18 01:27 Cloudy (Clear) 10/14/18 01:27 5.0 (5.0-7.0) 10/14/18 01:27 Ur Specific [place] 1.020 (1.003-1.030) 10/14/18 01:27 100 mg/dl mg/dL (Negative) 10/14/18 01:27 Neg mg/dL (Negative) 10/14/18 01:27 Neg mg/dL (Negative) 10/14/18 01:27 Lg (Negative) 10/14/18 01:27 Neg (Negative) 10/14/18 01:27 Neg (Negative) 10/14/18 01:27 2.0 mg/dL (<2.0) 10/14/18 01:27 Ur Leukocyte Esterase Neg (Negative) 10/14/18 01:27 6.0 /HPF (0.0-6.0) 10/14/18 01:27 95.0 /HPF (0.0-6.0) 10/14/18 01:27 U Epithel Cells (Auto) < 1.0 /HPF (0-13.0) 10/14/18 01:27 Amorphous Crystals 3+ 10/14/18 01:27 Hyaline Casts 4 /LPF 10/14/18 01:27 Granular Casts 2 /LPF 10/14/18 01:27 1+ /HPF 10/14/18 01:27 36.3 mg/dL (0.1-20.0) H 10/17/18 19:45 Protein/Creatinin Ratio 1.35 10/17/18 19:45 46 mmol/L 10/17/18 19:45 39.3 mmolL (110-250) L 10/17/18 19:45 49 mg/dL (5-11.8) H 10/17/18 19:45 Random Vancomycin 7.6 ug/mL (0-40.0) 10/17/18 05:20 Proteinase 3 (PR3) Ab <1.0 AI (<1.0) 10/17/18 19:03 Myeloperoxidase Ab <1.0 AI (<1.0) 10/17/18 19:03 76 mg/dL (82-185) L 10/17/18 19:03 21 mg/dL (15-53) 10/17/18 19:03 Lymph Enumerat CD4/CD8 0.84 (0.86-5.00) L 10/15/18 15:13 % CD3 Cells 60 % (57-85) 10/15/18 15:13 187 cells/uL (840-3060) L 10/15/18 15:13 % CD4 Cells 28 % (30-61) L 10/15/18 15:13 88 cells/uL (490-1740) L 10/15/18 15:13 % CD8 Cells 34 % (12-42) 10/15/18 15:13 104 cells/uL (180-1170) L 10/15/18 15:13 % CD19 Cells 27 % (6-29) 10/15/18 15:13 82 cells/uL (110-660) L 10/15/18 15:13 HIV-1 RNA PCR copies/ml <20 Copies/mL H 10/15/18 15:13 <1.30 Log cps/mL H 10/15/18 15:13 Active Medications - Current Medications Current Medications: Generic Name Dose Route Start Last Admin Trade Name Freq PRN Reason Stop Dose Admin Acetaminophen 650 mg 10/15/18 03:28 10/21/18 18:41 Tylenol PO 650 mg Q4H PRN Administration Pain MILD(1-3)/Fever >100.5/DELGADO Albuterol 2.5 mg 10/16/18 10:30 Proventil IH Q4HRT PRN Shortness Of Breath Albuterol/Ipratropium 1 ampul 10/15/18 14:00 10/24/18 08:52 Duoneb *Not For Prn Use* IH 1 ampul Q6HRT BLOSSOM Administration Lipase/Protease/Amylase 1 each 10/16/18 16:25 Pancrejoan Lema 10,500 Unit FEEDTUBE PRN PRN For Clogged Feeding Tube Aspirin 325 mg 10/17/18 10:00 10/24/18 09:36 Aspirin FEEDTUBE 325 mg DAILY BLOSSOM Administration Atorvastatin Calcium 20 mg 10/16/18 22:00 10/23/18 22:14 Lipitor FEEDTUBE 20 mg HS BLOSSOM Administration Atovaquone 750 mg 10/19/18 16:00 10/24/18 09:40 Mepron PO 750 mg BID BLOSSOM Administration Bisacodyl 10 mg 10/16/18 10:30 Dulcolax OR DAILY PRN Constipation Budesonide 0.5 mg 10/15/18 20:00 10/24/18 08:52 Pulmicort IH 0.5 mg Q12HRT BLOSSOM Administration Cholecalciferol 2,000 unit 10/17/18 10:00 10/24/18 09:36 Vitamin D3 FEEDTUBE 2,000 unit QAM BLOSSOM Administration Darunavir 800 mg 10/19/18 13:00 10/24/18 09:36 Prezista PO 800 mg QDAY BLOSSOM Administration Dextrose 50 ml 10/21/18 17:33 D50w (25gm) Syringe IV PRN PRN Hypoglycemia Docusate Sodium 100 mg 10/16/18 10:30 Colace FEEDTUBE Q12H PRN Constipation/STOOL SOFTENER Famotidine 20 mg 10/25/18 10:00 Pepcid PO DAILY BLOSSOM Fluoxetine HCl 40 mg 10/17/18 10:00 10/24/18 09:38 Prozac PO 40 mg QDAY BLOSSOM Administration Cefazolin Sodium 2 gm/ Sodium 100 mls @ 100 mls/hr 10/23/18 14:00 10/24/18 06:59 Chloride IV 10/28/18 23:59 Infused Q8HR BLOSSOM Infusion Norepinephrine 4 mg in 250 mls @ 7.5 mls/hr 10/23/18 22:00 10/24/18 07:25 Levophed Drip 4 Mg/Ns 250 Ml IV 0 mcg/min TITR BLOSSOM 0 mls/hr Titration Protocol 2 MCG/MIN Insulin Human Regular 0 units 10/21/18 18:00 10/24/18 06:08 Humulin R SUB-Q 3 units Q6HR BLOSSOM Administration Protocol Lamivudine 150 mg 10/23/18 10:00 10/24/18 09:37 Epivir PO 150 mg BID BLOSSOM Administration Levothyroxine Sodium 75 mcg 10/18/18 06:00 10/24/18 06:00 Synthroid PO 75 mcg DAILY@0600 BLOSSOM Administration Lorazepam 2 mg 10/24/18 04:13 10/24/18 04:40 Ativan IV 2 mg Q1H PRN Administration Seizures Metoclopramide HCl 10 mg 10/21/18 17:33 10/22/18 06:18 Reglan IV 10 mg Q8H PRN Administration Nausea And Vomiting Morphine Sulfate 2 mg 10/15/18 03:28 Morphine IV Q4H PRN Pain, Moderate (4-6) Ondansetron HCl 4 mg 10/15/18 03:28 Zofran IV Q8H PRN Nausea And Vomiting Polyethylene Glycol 17 gm 10/16/18 10:30 Miralax 3350 FEEDTUBE DAILY PRN Constipation Prednisone 10 mg 10/25/18 10:00 Deltasone PO 10/25/18 10:01 QDAY BLOSSOM Prednisone 5 mg 10/26/18 10:00 Deltasone PO QDAY BLOSSOM Quetiapine Fumarate 100 mg 10/16/18 11:00 10/23/18 18:27 Seroquel FEEDTUBE 100 mg Q8H BLOSSOM Administration Ritonavir 100 mg 10/19/18 12:00 10/24/18 09:40 Norvir PO 100 mg DAILY BLOSSOM Administration Scopolamine 1 each 10/16/18 11:00 10/22/18 11:34 Transderm-Scop TD 1 each Q72H BLOSSOM Administration Senna 17.2 mg 10/16/18 22:00 10/23/18 22:15 Senokot FEEDTUBE 17.2 mg HS BLOSSOM Administration Simple Syrup 15 ml 10/16/18 16:25 Simple Syrup FEEDTUBE PRN PRN Hypoglycemia Simple Syrup 30 ml 10/16/18 16:25 Simple Syrup FEEDTUBE PRN PRN Hypoglycemia Sodium Bicarbonate 325 mg 10/16/18 16:25 Sodium Bicarbonate FEEDTUBE PRN PRN For Clogged Feeding Tube Sodium Chloride 10 ml 10/15/18 10:00 10/24/18 09:41 Sodium Chloride Flush Syringe 10 Ml IV 10 ml BID BLOSSOM Administration Sodium Chloride 10 ml 10/15/18 03:28 Sodium Chloride Flush Syringe 10 Ml IV PRN PRN LINE FLUSH Tenofovir Disoproxil Fumarate 300 mg 10/23/18 10:00 10/23/18 10:00 Viread PO 300 mg Q24HR BLOSSOM Administration Nutrition/Malnutrition Assess - Dietary Evaluation Nutrition/Malnutrition Findings: Nutrition Notes Start: 10/16/18 16:06 Freq: Status: Active Protocol: Document 10/23/18 14:28 JOSE FRANCISCO (Rec: 10/23/18 14:41 JOSE FRANCISCO SRW- [email or web address]) Nutrition Notes Initial or Follow up Reassessment Current Diagnosis Respiratory Failure Other Pertinent Diagnosis Pneu, HIV/AIDS, acute encephalopathy Current Diet TF - Vital AF 1.2 at 50ml/hr Labs/Tests K 3.5 BUN 59 BG 153 Pertinent Medications D5W at 125ml/hr (provides 510 kcal), Prednisone, Reglan (prn ) Height 5 ft 3 in Weight 56.5 kg [place] Body Weight (kg) 56.36 BMI 22.0 Weight change and time frame Current wt obtained from bed scale Subjective/Other Information Observed TF infusing at 10ml/ hr. TF restarted last pm. Pt had been having increased gastric residuals, per RN. Burn Absent Trauma Absent #1 Nutrition Diagnosis Inadequate oral intake Diagnosis Progress(for reassessment Continues documentation) Is patient on ventilator? No Is Patient Ambulatory and/or Out of Bed No REE-([facility]-confined to bed) [phone] Additional Notes Pro needs 1.2-2g/k-113g/ day Fluid needs 1ml/kcal Nutrition Intervention Nutrition Support: Change TF formula to Glucerna 1.2 at 55ml/hr with 100ml water flush q4h. Kcal 1,584 Protein (gm) 79 Carbohydrates (gm) 137 Fluid (mL) 1,063 Fiber (gm) 21 Goal #1 TF tolerance Goal #2 TF to meet 90-100% energy and pro needs at goal rate Goal #3 Wt maintenance and/or gain Follow-Up By: 10/24/18 Additional Comments F/U: TF formula change/rate, tolerance
[2018-10-24 12:18] LABS: Basophils % (Manual) 0 % (0.0-1.8); Eosinophils % (Manual) 0 % (0.0-4.3); Monocytes % (Manual) 0 % (0.0-7.3); Total Cells Counted 100
[2018-10-24 12:19] LABS: Anisocytosis Few; Large Platelets Rare; Platelet Estimate Consistent w Auto; Target Cells Rare
[2018-10-24] MEDS ORDERED: NACL 0.9% 500 ML 500 ML IV NR (13:00)
[2018-10-24] MEDS ORDERED: XYLOCAINE CARDIAC IV ONE (14:44)
[2018-10-24] MEDS ORDERED: AMIDATE IV ONE (14:44)
[2018-10-24] MEDS ORDERED: WATER FOR INJ Sterile (PF) ONE (14:44)
--- NOTE | 2018-10-24 18:14 | Event Note ---
Was called by RN -patient is hypoxic and now on rebreather -he is tachcardic and bradycardic General.: Appears ill and in severe toxic , emaciated HEENT: Moist mucous membranes, extraocular muscles intact, no lymphadenopathy Neck: supple Cardiac: S1-S2 heard Lungs: diminished BS Abdomen: soft , nontender, nondistended, bowel sounds positive Extremities: no edema clubbing or cyanosis, contracted extremities Skin: no rash or lesions Neurologic: altered, moved extremiites, does not obey commands Psych: does not obey commands, lethargic Plan obtain 12 lead EKG and stat cxr - i have informed information technology analyst about the change of status - order 1L bolus NS, and dopamine drip peripheral on standby -Poor prognosis, family had wanted to continue aggressive mgt, will plan family meeting for tomorrow CCT 33 minutes
[2018-10-24] MEDS ORDERED: NEO-SYNEPHRINE 100 MG in NACL 0.9% 90 ML IV SCH (18:30)
[2018-10-24] MEDS ORDERED: ADRENALIN ONE (18:50)
[2018-10-24] MEDS ORDERED: CALCIUM CHLORIDE IV ONE (18:50)
[2018-10-24] MEDS ORDERED: ADRENALIN IV ONE (18:50)
[2018-10-24] MEDS ORDERED: NACL 0.9% 1000 ML 1,000 ML IV ONE (18:55)
[2018-10-24] MEDS ORDERED: INTROPIN DRIP 800 MG/D5W 250 ML 800 MG/250 ML BAG IV SCH (19:00)
[2018-10-24] MEDS ORDERED: Vasostrict 20 UNIT in NACL 0.9% 100 ML IV SCH (19:00)
[2018-10-24 19:23] VITALS: BP 200/141
--- NOTE | 2018-10-24 19:25 | Procedure Note ---
Date of procedure: 10/24/18 Pre-op diagnosis: Severe sepsis with shock Post-op diagnosis: same Procedure: RIJ CVC under USS guidance. Emergent procedure Time out done, universal precautions addressed. Sterile conditions -Under ultrasound guidance, the right IJ was identified and cannulated Dark blood aspirated. Guidewire passed. Seldinger technique, stab wound, dilated the vein. Triple lumen CVC 16cm passed, guide wire removed. Sutured in place. No immediate complications CXR ordered Surgeon: ZELDA BOWMAN Estimated blood loss: none Condition: critical Disposition: ICU
--- NOTE | 2018-10-24 19:26 | Event Note ---
Date: 10/24/18 Code blue. Patient coded according to ACLS protocol, see code blue sheet for details. No ROSC after 21 minutes, daughter notified. She asked that all resuscitation be stopped. Stopped at 1913 HRS
--- NOTE | 2018-10-24 19:31 | Event Note ---
Date: 10/24/18 Patient examined. ETT and RIJ CVC in place Unresponsive, fixed dilated pupils. No respiratory excursions, no cardiac pulsation on ausculation of the precordium Pronounced at 1915hrs Notified the hospitalist service.
--- NOTE | 2018-10-24 20:44 | XRay Report ---
PROCEDURE: XR CHEST 1V AP TECHNIQUE: Chest radiograph single view. HISTORY: hypoxia, ETTUBE COMPARISONS: Comparison is October 17, 2018 . FINDINGS: There is been interval placement of an ET tube. Tip approximately 1.5 cm above the keysha. Extensive opacification with air complete opacification of the right hemithorax is new since the prior exam There is been placement of a right IJ catheter tip overlying the cavoatrial junction. Left lung demon strates no confluent infiltrate.. IMPRESSION: Severe right-sided pulmonary infiltrates which are new since the prior exam ETT and right IJ catheter appear in satisfactory position This document is electronically signed by Navneet Bass MD., Oct 24 2018 08:42:31 PM ET
--- NOTE | 2018-10-25 09:27 | Death Summary ---
Summary - Providers Consults: 10/15/18 12:00 Consult to PICC Line RN [CONS] Stat Reason For Exam: nees pressors Type Line:: PICC 10/15/18 12:25 Consult to Physician [CONS] Routine Comment: Consulting Provider: ZELDA BOWMAN Physician Instructions: Reason For Exam: sepsis, resp failure, icu 10/15/18 13:26 Consult to Physician [CONS] Routine Comment: Consulting Provider: THU NICHOLE Physician Instructions: Reason For Exam: sepsis pna 10/16/18 12:26 Consult to Dietitian/Nutrition [CONS] Routine Physician Instructions: Reason For Exam: Reason for Consult: Write/Manage Tube Feeding 10/17/18 13:30 Consult to Physician [CONS] Routine Comment: Consulting Provider: GRACY CLARK Physician Instructions: Reason For Exam: maximiliano 10/20/18 23:39 Consult to Dietitian/Nutrition [CONS] Routine Physician Instructions: Reason For Exam: high residual review tf rate Reason for Consult: Write/Manage Tube Feeding 10/23/18 10:39 Consult to Case Management [CONS] Stat Services Needed at Discharge: 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 Lines: Lab monitoring: CBC, AST, ALT, creat, CRP once a week preferly on Tuesday morning. Please fax results to [phone] and call [phone] for critical lab results. Swati Lawrence Date: 10/23/2018 10/24/18 11:46 Occupational Therapy Evaluate and Treat [CONS] Routine Comment: Reason For Exam: debility Physical Therapy Evaluation and Treat [CONS] Routine Comment: Reason For Exam: debility Speech Therapy Evaluation and Treat [CONS] Routine Reason For Exam: dysphagia Attending: JOSHUA ARVIZU MD - summary Date of admission: 10/15/18 12:21 Date of : 10/24/18 Significant findings: 58 year old man with history of HIV, toxoplasmosis, severe the reservoir deficits, syphilitic encephalopathy, history of polysubstance abuse including cocaine. He status post trach and trach traversal, has a g-tube still intact. The patient was brought from [facility] for respiratory distress and altered mental status -He was treated with IV antibiotics, IV fluids and pressors for low blood pressure. He also receive free water replacement by his G-tube. He was treated with venti mask and BiPAP as needed for respiratory failure. His thyroid function test were abnormal there for his synthroid dose was adjusted. He was continued on his retrovirals and PCP prophylaxis per infectious disease. Unfortunately the patient's prognosis was very poor he had days with slight improvements only to get worse the following day. he continued to Wax and wane in this matter did not show any progressive improvement. unfortunately on the last day that he was in hospital he began to have more respiratory distress, he was treated with non-rebreather and BiPAP, he did not improve and was intubated. The patient was treated with pressors for low blood pressure, he was continued on antibiotics. However he continued to worsen and then had a loss of his pulse he received CPR for over 21 minutes, but patient unfortunately . - diagnosis Sepsis secondary to pneumonia, septic shock, mssa septicemia Acute kidney injury due to vasomotor nephropathy and ATN Hypernatremia Free water deficit, dehydration Acute hypoxic respiratory failure on MV < 96 hrs Hypothyroidism HIV-AIDS
[2018-10-25] MEDS ORDERED: DELTASONE PO SCH (10:00)
[2018-10-25] MEDS ORDERED: PEPCID PO SCH (10:00)
[2018-10-26] MEDS ORDERED: DELTASONE PO SCH (10:00)
== END 2018-10-24 21:04 | DRG 974 ==
LOC: ED 22:54 → SUATTDRO 22:54 → UNDOADMIN 10-15 02:00 → IMCU 10-15 02:00 → CC1 10-15 22:50
PROVIDERS: ADMIT Internal Medicine; ATTEND Internal Medicine
PROC: 02HV33Z Insertion of Infusion Device into Superior Vena Cava, Percutaneous Approach (ICD-10-PCS; principal; 2018-10-15)
PROC: B548ZZA Ultrasonography of Superior Vena Cava, Guidance (ICD-10-PCS; 2018-10-15)
PROC: 4A033R1 Measurement of Arterial Saturation, Peripheral, Percutaneous Approach (ICD-10-PCS; 2018-10-15)
PROC: 5A09457 Assistance with Respiratory Ventilation, 24-96 Consecutive Hours, Continuous Positive Airway Pressure (ICD-10-PCS; 2018-10-22)
PROC: 30233N1 Transfusion of Nonautologous Red Blood Cells into Peripheral Vein, Percutaneous Approach (ICD-10-PCS; 2018-10-24)
PROC: 5A1935Z Respiratory Ventilation, Less than 24 Consecutive Hours (ICD-10-PCS; 2018-10-24)
PROC: 0BH17EZ Insertion of Endotracheal Airway into Trachea, Via Natural or Artificial Opening (ICD-10-PCS; 2018-10-24)
PROC: 5A12012 Performance of Cardiac Output, Single, Manual (ICD-10-PCS; 2018-10-24)
PROC: 02HV33Z Insertion of Infusion Device into Superior Vena Cava, Percutaneous Approach (ICD-10-PCS; 2018-10-24)
PROC: B548ZZA Ultrasonography of Superior Vena Cava, Guidance (ICD-10-PCS; 2018-10-24)
DX: B20 Human immunodeficiency virus [HIV] disease (principal); A41.01 Sepsis due to Methicillin susceptible Staphylococcus aureus; R65.21 Severe sepsis with septic shock; J18.9 Pneumonia, unspecified organism; N17.0 Acute kidney failure with tubular necrosis; G93.40 Encephalopathy, unspecified; J96.21 Acute and chronic respiratory failure with hypoxia; E87.0 Hyperosmolality and hypernatremia; E86.0 Dehydration; E03.9 Hypothyroidism, unspecified; J44.0 Chronic obstructive pulmonary disease with (acute) lower respiratory infection; F14.10 Cocaine abuse, uncomplicated; D64.9 Anemia, unspecified; F03.90 Unspecified dementia, unspecified severity, without behavioral disturbance, psychotic disturbance, mood disturbance, and anxiety; E87.1 Hypo-osmolality and hyponatremia; I10 Essential (primary) hypertension; E11.9 Type 2 diabetes mellitus without complications; Z86.73 Personal history of transient ischemic attack (TIA), and cerebral infarction without residual deficits; Z93.1 Gastrostomy status; Z79.82 Long term (current) use of aspirin; Z79.899 Other long term (current) drug therapy
CPT/HCPCS: 31500; 31720; 36415; 36600; 70450; 71045; 74018; 76770; 80048; 80053; 80061; 80202; 81001; 82024; 82140; 82436; 82570; 82803; 82962; 83735; 84100; 84156; 84300; 84436; 84439; 84443; 84484; 85007; 85025; 86021; 86140; 86160; 86850; 86900; 86901; 86920; 87040; 87076; 87086; 87186; 87536; 92950; 93005; 93010; 93306; 94002; 94640; 94644; 94660; 94760; 96365; 96366; 96367; 96375; G0378; A9270-GY; J0171; J0690; J0692; J1265; J1650; J1815; J1956; J2001; J2060; J2270; J2370; J2543; J2765; J2920; J2930; J3370; J3475; J3480; J7030; J7040; J7050; J7070; J7512; P9016